=== PATIENT | male | born 1945 | race Caucasian/White ===

== ENCOUNTER 2022-06-15 13:52 | Inpatient (IN) | payer MEDICARE, BC ==
[2022-06-15] MEDS ORDERED: methylPREDNISolone SOD SUCCI 125 MG/2 ML VIAL IV STA (14:05)
[2022-06-15] MEDS ORDERED: IPRATROPIUM-ALBUTEROL 3 ML NEB INHALATION STA (14:05)
[2022-06-15] MEDS ORDERED: PNEUMONIA PROTOCOL UTILIZED 1 EACH MISC PO PRN (14:51)
[2022-06-15] MEDS ORDERED: IPRATROPIUM-ALBUTEROL 3 ML NEB INHALATION PRN (14:51)
[2022-06-15] MEDS ORDERED: AZITHROMYCIN 500 MG in SODIUM CHLORIDE 0.9% 250 ML IVPB STA (14:51)
--- NOTE | 2022-06-15 14:51 | ED ---
General Adult HPI - General Chief complaint: Shortness of Breath Stated complaint: Cronic COPD, Sent Time Seen by Provider: 06/15/22 14:05 Source: patient, family, RN notes reviewed Mode of arrival: ambulatory Limitations: no limitations - History of Present Illness Initial comments: Patient is a pleasant 77-year-old male presenting to the emergency department with difficulty breathing. Symptoms have been ongoing for several months, worse the past couple weeks. Patient does have cough. Patient has occasional productive sputum the past week. No fevers. Dyspnea does worsen with exertion, even as little as 5-10 feet. Patient did see Dr. Cano prior to arrival who would like patient admitted and possibly need placement for rehab. No leg pain or leg swelling. No fever. - Related Data Allergies Allergy/AdvReac Type Severity Reaction Status Date / Time No Known Allergies Allergy Verified 06/15/22 14:40 Review of Systems ROS Statement: Those systems with pertinent positive or pertinent negative responses have been documented in the HPI. ROS Other: All systems not noted in ROS Statement are negative. Constitutional: Denies: fever Eyes: Denies: eye pain ENT: Denies: ear pain Respiratory: Reports: as per HPI, cough, dyspnea Cardiovascular: Denies: chest pain Endocrine: Reports: fatigue Gastrointestinal: Denies: abdominal pain Genitourinary: Denies: dysuria Musculoskeletal: Denies: back pain Skin: Denies: rash Neurological: Denies: weakness Past Medical History Past Medical History: Cancer, COPD, Hypertension Additional Past Medical History / Comment(s): non-hodgkins lymphoma, coronary arteriosclerosis, anemia History of Any Multi-Drug Resistant Organisms: C-DIFF Date of last positivie culture/infection: October 2021 MDRO Source:: stool Past Surgical History: Back Surgery, Coronary Bypass/CABG Additional Past Surgical History / Comment(s): AAA repair in 03/30 with stent placed, carotid endarterectomy, on flomax for not emptying bladder per patient Past Psychological History: No Psychological Hx Reported Smoking Status: Current every day smoker Past Alcohol Use History: None Reported Past Drug Use History: None Reported General Exam Limitations: no limitations General appearance: alert, in no apparent distress Head exam: Present: normocephalic Eye exam: Present: normal appearance Neck exam: Present: normal inspection Respiratory exam: Present: wheezes, decreased breath sounds Cardiovascular Exam: Present: regular rate, normal rhythm GI/Abdominal exam: Present: soft. Absent: tenderness Extremities exam: Present: normal inspection. Absent: pedal edema, calf tenderness Neurological exam: Present: alert Psychiatric exam: Present: normal affect, normal mood Skin exam: Present: normal color Course Vital Signs 06/15/22 14:32 Temperature 98.3 F Pulse Rate 98 Respiratory 22 Rate Blood Pressure 94/60 O2 Sat by Pulse 96 Oximetry Medical Decision Making - Medical Decision Making Patient and family are made aware of plan. Case was discussed with Dr. Tejeda, who will admit covering hospital call. Dr. Cano will be placed on consult. - Radiology Data Radiology results: image reviewed (Emergency reviewed from earlier today with right-sided infiltrate) Disposition Clinical Impression: Acute exacerbation of chronic obstructive pulmonary disease, Pneumonia Disposition: ADMITTED IP TO THIS HOSP Is patient prescribed a controlled substance at d/c from ED?: No Referrals: Nonstaff,Physician [Primary Care Provider] - 1-2 days Time of Disposition: 14:50
[2022-06-15] MEDS: IPRATROPIUM-ALBUTEROL 3 ML NEB INHALATION SCH ×2 (15:07→19:50)
[2022-06-15 15:40] LABS: Basophils % (A) 0 %; Eosinophils % (A) 0 %; HCT 34.6 % (39.0-53.0); HGB 11.7 gm/dL (13.0-17.5); Lymphocytes # (A) 1.2 k/uL (1.0-4.8); Lymphocytes % (A) 34 %; MCH 29.5 pg (25.0-35.0); MCHC 33.9 g/dL (31.0-37.0); MCV 87.1 fL (80.0-100.0); Mean Platelet Volume 9.8; Monocytes # (A) 0.3 k/uL (0-1.0); Monocytes % (A) 8 %; Neutrophils # (A) 1.9 k/uL (1.3-7.7); Neutrophils % (A) 55 %; RBC 3.97 m/uL (4.30-5.90); RDW 14.1 % (11.5-15.5); WBC 3.4 k/uL (3.8-10.6)
[2022-06-15 15:56] LABS: Partial Thromboplastin Time 24.8 sec (22.0-30.0); Prothrombin Time 10.8 sec (9.0-12.0)
[2022-06-15 16:01] LABS: Albumin 3.1 g/dL (3.5-5.0); Potassium 4.2 mmol/L (3.5-5.1); Total Bilirubin 0.6 mg/dL (0.2-1.3); Total Protein 5.4 g/dL (6.3-8.2)
[2022-06-15] MEDS: SODIUM CHLORIDE 0.9% 1,000 ML IV SCH (16:03)
[2022-06-15 16:38] LABS: Platelet Count 99 k/uL (150-450)
[2022-06-15 16:51] LABS: Glucose,Whole Blood 216 mg/dL (70-110)
[2022-06-15] MEDS ORDERED: ATORVASTATIN 40 MG TAB PO STA (16:56)
[2022-06-15] MEDS: PANTOPRAZOLE 40 MG TABLET PO SCH (16:57)
[2022-06-15] MEDS: HEPARIN SODIUM,PORCINE/PF 5,000 UNIT/0.5 ML SYRINGE SQ SCH (16:57)
[2022-06-15] MEDS: INSULIN ASPART (NovoLOG) 100 UNIT/ML VIAL SQ SCH (16:57)
--- NOTE | 2022-06-15 17:31 | P.HPIM ---
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 Cano. Patient has a known history of COPD, non-Hodgkin's lymphoma, hyperlipidemia, hypertension, CABG 3, aortic dissection with repair, carotid artery stenosis status post carotid endarterectomy, and tobacco dependent. Over the past week patient has had increased shortness of breath and productive cough. Patient also admits to fevers and chills. Patient also admits to sinus congestion and ear pressure bilaterally. Patient denies chest pain. Nothing seems to make it better or worse. Due to patient's symptoms patient was advised to seek medical attention treatment of the hospital. Chest x-ray is pending. IV antibiotics initiated in the ER. IV steroids initiated in the ER as well. Review of Systems A 14 point review systems was assessed patient was only positive for those assessment HPI Past Medical History Past Medical History: Cancer, COPD, Hypertension Additional Past Medical History / Comment(s): non-hodgkins lymphoma, coronary arteriosclerosis, anemia History of Any Multi-Drug Resistant Organisms: C-DIFF Date of last positivie culture/infection: October 2021 MDRO Source:: stool Past Surgical History: Back Surgery, Coronary Bypass/CABG Additional Past Surgical History / Comment(s): AAA repair in 03/30 with stent placed, carotid endarterectomy, on flomax for not emptying bladder per patient Past Psychological History: No Psychological Hx Reported Smoking Status: Current every day smoker Past Alcohol Use History: None Reported Past Drug Use History: None Reported Medications and Allergies Allergies Allergy/AdvReac Type Severity Reaction Status Date / Time No Known Allergies Allergy Verified 06/15/22 14:40 Physical Exam Osteopathic Statement: *. No significant issues noted on an osteopathic structural exam other than those noted in the History and Physical/Consult. Vitals: Vital Signs Temp Pulse Resp BP Pulse Ox 06/15/22 15:45 20 06/15/22 15:19 72 06/15/22 15:08 68 06/15/22 14:32 98.3 F 98 22 94/60 96 Intake and Output 06/15/22 06/15/22 06/15/22 06:59 14:59 22:59 Other: Weight 56.699 kg General: [non toxic], [no distress], [appears at stated age] Derm: [warm], [dry] Head: [atraumatic], [normocephalic], [symmetric] Eyes: [EOMI], [no lid lag], [anicteric sclera] Mouth: [no lip lesion], [mucus membranes moist] Cardiovascular: [S1S2 reg], [no murmur], [positive posterior tibial pulse bilateral], Lungs: [Bilateral rhonchi] , [no accessory muscle use] Abdominal: [soft], [ nontender to palpation], [no guarding], [no appreciable organomegaly] Ext: [no gross muscle atrophy], [no edema], [no contractures] Neuro: [ CN II-XI grossly intact], [no focal neuro deficits] Psych: [Alert], [oriented], [appropriate affect] Results CBC & Chem 7: 06/15/22 15:32 06/15/22 15:32 Labs: Abnormal Lab Results - Last 24 Hours (Table) 06/15/22 06/15/22 06/15/22 Range/Units 15:32 15:32 16:49 WBC 3.4 L (3.8-10.6) k/uL RBC 3.97 L (4.30-5.90) m/uL Hgb 11.7 L (13.0-17.5) gm/dL Hct 34.6 L (39.0-53.0) % Plt Count 99 L (150-450) k/uL Sodium 129 L (137-145) mmol/L Chloride 93 L (98-107) mmol/L BUN 43 H (9-20) mg/dL Creatinine 1.75 H (0.66-1.25) mg/dL Glucose 206 H (74-99) mg/dL POC Glucose (mg/dL) 216 H (70-110) mg/dL Total Protein 5.4 L (6.3-8.2) g/dL Albumin 3.1 L (3.5-5.0) g/dL Thrombosis Risk Factor Assmnt - DVT/VTE Prophylaxis DVT/VTE Prophylaxis: Pharmacologic Prophylaxis ordered Assessment and Plan Assessment: 1. Acute exacerbation of COPD due to community acquired pneumonia Continue azithromycin and Rocephin Continue IV Solu-Medrol every 6 [address] Cano Vitals every 4 hours Duo nebs Sputum culture oxygen 2. BRITT likely due to episode of hypoperfusion from recent episode of hypotension Slow IV hydration Trend BUN/creatinine Check US of kidneys 3. Hyponatremia Check urine studies slow iv hydration 4. hyperglycemia likely due to steroids check hba1c insulin sliding scale 5. pancytopenia likely related to hx of chemotherapy for non Hodgkin lymphoma check iron studies trend cbc 6. Chronic conditions: COPD, non-Hodgkin's lymphoma, hyperlipidemia, hypertension, CABG 3, aortic dissection with repair, carotid artery stenosis status post carotid endarterectomy, and tobacco dependent, GERD -resume aspirin and statin -hold antihypertensives lisinopril and metoprolol due to borderline low blood pressure reading -vitals q4 -tele -tobacco cessation counseled patient does not want a nicotine patch at this time 7. GI DVT prophylaxis 8. A.m. labs Greater than 45 minutes spent coordinating care counseling and documenting Disposition: Home with home care versus rehab Anticipated length of stay greater than 2 midnight Patient is a full code PCP is Dr. Castellon
--- NOTE | 2022-06-15 18:37 | US ---
EXAMINATION TYPE: US kidneys/renal and bladder DATE OF EXAM: 06/15/2022 COMPARISON: NONE CLINICAL HISTORY: bre. EXAM MEASUREMENTS: Right Kidney: 10.4 x 5.0 x 5.3 cm Left Kidney: 10.6 x 5.2 x 4.8 cm Right Kidney: No hydronephrosis or masses seen Left Kidney: 4.9 x 4.7 x 4.4cm cyst medial mid pole Bladder: wnl Bilateral Jets seen: yes IMPRESSION: Left renal cortical cyst. No evidence of solid renal mass or obstruction.
[2022-06-15] MEDS: methylPREDNISolone SOD SUCCI 125 MG/2 ML VIAL IV SCH (19:09)
[2022-06-15] MEDS: ASPIRIN 81 MG PO SCH (22:40)
[2022-06-15 23:41] LABS: % Iron Saturation 6.44 (15.00-50.00)
[2022-06-15 23:54] LABS: Glucose,Whole Blood 223 mg/dL (70-110)
[2022-06-16] MEDS: methylPREDNISolone SOD SUCCI 125 MG/2 ML VIAL IV SCH ×5 (00:40→23:58)
[2022-06-16] MEDS: HEPARIN SODIUM,PORCINE/PF 5,000 UNIT/0.5 ML SYRINGE SQ SCH ×4 (00:41→23:58)
[2022-06-16] MEDS: SODIUM CHLORIDE 0.9% 1,000 ML IV SCH ×3 (02:07→23:27)
[2022-06-16 06:17] LABS: Glucose,Whole Blood 181 mg/dL (70-110)
--- NOTE | 2022-06-16 07:12 | XR ---
EXAMINATION TYPE: XR chest 2V DATE OF EXAM: 06/16/2022 COMPARISON: 06/15/2022 HISTORY: Pneumonia TECHNIQUE: Frontal and lateral views of the chest are obtained. FINDINGS: There is hyperinflation lungs and flattening the diaphragms consistent with COPD. There is a focal partially consolidative opacity in the right lower lung zone which has increased in the interval. Similar small increase in the infiltrate in the left lung base. The heart size is normal pulmonary vasculature is not congested. There is evidence for prior CABG chidi juan. The osseous structures are intact. IMPRESSION: 1. COPD. 2. Increasing airspace opacities bilaterally, right greater than left. Findings consistent with a pn eumonic process which has worsened in the interval.
[2022-06-16 08:24] LABS: Glucose,Whole Blood 161 mg/dL (70-110)
[2022-06-16] MEDS: IPRATROPIUM-ALBUTEROL 3 ML NEB INHALATION SCH ×4 (08:51→19:49)
[2022-06-16] MEDS: INSULIN ASPART (NovoLOG) 100 UNIT/ML VIAL SQ SCH ×3 (09:17→17:51)
[2022-06-16] MEDS: AZITHROMYCIN 500 MG TAB PO SCH (09:17)
[2022-06-16] MEDS: ASPIRIN 81 MG PO SCH (09:17)
[2022-06-16] MEDS: PANTOPRAZOLE 40 MG TABLET PO SCH (09:17)
--- NOTE | 2022-06-16 11:49 | P.CNPUL ---
History of Present Illness Consult date: 06/16/22 Requesting physician: Keith Echeverria Reason for consult: dyspnea, COPD, pneumonia, abnormal CXR/CT Chief complaint: Shortness of breath, cough, congestion History of present illness: This is a pleasant 77-year-old male patient who has a history of previous duodenal ulcer with GI bleed, abdominal aortic aneurysm with previous endovascular stent grafting, carotid atherosclerosis with previous right carotid endarterectomy, non-Hodgkin's lymphoma, receiving Rituxan infusions, hypertension, coronary artery disease. He also has advanced chronic obstructive pulmonary disease and follows with Dr. Cano in our office for the same. His FEV1 value is 39% of predicted. He had been maintained on Wixela, Spiriva and albuterol. He was seen in the office yesterday after recently being admitted to [facility] for advanced COPD exacerbation. He was treated with steroids and antibiotics and subsequently disc discharge. He was not doing much better. Chest x-ray shows worsening right lung pneumonia and he was referred here for the same. He is seen today in consultation on the regular medical floor. He is currently resting fairly comfortably in bed. Awake and alert. He has a loose nonproductive cough. No fever chills. Initiated and DuoNeb inhalations, Pulmicort and performs inhalations, IV Solu-Medrol. Antibiotics in the form of ceftriaxone and azithromycin. Heparin for DVT prophylaxis. Protonix for GI prophylaxis. Chest x-ray reveals evidence of COPD. There is increasing airspace opacities bilaterally right greater than left. Sputum culture pending. White count 3.4. Hemoglobin 11.7. Platelets 99,000. Sodium 129. Potassium 4.2. BUN 43. Creatinine 1.75. Glucose 206. AST 39. ALT 28. ProBNP 1960. Pro calcitonin 0.50. Mcnamara virus by PCR not detected. Influenza screen negative. Review of Systems REVIEW OF SYSTEMS: CONSTITUTIONAL: Denies any recent significant weight loss or weight gain. EYES: Denies change in vision. EARS, NOSE, MOUTH, THROAT: Denies headaches, denies sore throat. CARDIOVASCULAR: Denies chest pain, palpitations or syncopal episodes. RESPIRATORY: Positive for shortness of breath, cough, congestion no hemoptysis. GASTROINTESTINAL: Denies change in appetite, denies abdominal pain GENITOURINARY: Denies hematuria, denies infections. MUSKULOSKELETAL: Denies pain, denies swelling. INTEGUMENTARY: Denies rash, denies eczema. NEUROLOGICAL: Denies recent memory loss, no recent seizure activity. PSYCHIATRIC: Denies anxiety, denies depression. HEMATOLOGIC/LYMPHATIC: Denies anemia, denies enlarged lymph nodes. Past Medical History Past Medical History: Cancer, COPD, Hypertension Additional Past Medical History / Comment(s): non-hodgkins lymphoma, coronary arteriosclerosis, anemia History of Any Multi-Drug Resistant Organisms: C-DIFF Date of last positivie culture/infection: October 2021 MDRO Source:: stool Past Surgical History: Back Surgery, Coronary Bypass/CABG Additional Past Surgical History / Comment(s): AAA repair in 03/30 with stent placed, carotid endarterectomy, on flomax for not emptying bladder per patient Past Psychological History: No Psychological Hx Reported Smoking Status: Current every day smoker Past Alcohol Use History: None Reported Past Drug Use History: None Reported Medications and Allergies Home Medications Medication Instructions Recorded Confirmed Type Albuterol Inhaler [Ventolin Hfa 1 - 2 puff INHALATION RT-Q4H PRN 06/15/22 06/15/22 History Inhaler] Aspirin EC [Ecotrin Low Dose] 81 mg PO HS 06/15/22 06/15/22 History Fluticasone Nasal [place] [Flonase 1 spray EA NOSTRIL DAILY PRN 06/15/22 06/15/22 History Nasal [place]] Fluticasone Propion/Salmeterol 1 puff INHALATION RT-BID 06/15/22 06/15/22 Hist ory [Fluticasone-Salmeterol 100-50] Loratadine [Claritin] 10 mg PO DAILY PRN 06/15/22 06/15/22 History Metoprolol Succinate [Metoprolol 25 mg PO DAILY 06/15/22 06/15/22 History Succinate ER] Multivitamins, Thera [Multivitamin 1 tab PO DAILY 06/15/22 06/15/22 History (formulary)] Nitroglycerin Sl Tabs [Nitrostat] 0.4 mg SUBLINGUAL Q5M PRN 06/15/22 06/15/22 History [place]-3/Dha/Epa/Fish Oil [Fish Oil 1 cap PO HS 06/15/22 06/15/22 History 1,000 mg Softgel] Omeprazole [PriLOSEC] 20 mg PO DAILY PRN 06/15/22 06/15/22 History Pantoprazole [Protonix] 40 mg PO BID 06/15/22 06/15/22 History Simvastatin 80 mg PO HS 06/15/22 06/15/22 History Tamsulosin [Flomax] 0.4 mg PO HS 06/15/22 06/15/22 History Tiotropium 2.5 Mcg/Puff [Spiriva 2 puff INHALATION RT-HS 06/15/22 06/15/22 History Respimat 2.5 Mcg] lisinopriL [Zestril] 10 mg PO DAILY 06/15/22 06/15/22 History predniSONE 10 mg PO DAILY 06/15/22 06/15/22 History Allergies Allergy/AdvReac Type Severity Reaction Status Date / Time No Known Allergies Allergy Verified 06/15/22 20:24 Physical Exam Vitals: Vital Signs Temp Pulse Pulse Resp BP BP Pulse Ox 06/16/22 09:02 88 16 06/16/22 08:52 86 18 92 L 06/16/22 08:00 97.5 F L 31 L 16 119/67 98 06/15/22 23:17 97.6 F 89 16 113/61 96 06/15/22 22:01 97.6 F 16 113/61 96 06/15/22 21:02 98.6 F 90 15 104/54 93 L 06/15/22 20:03 72 06/15/22 19:51 70 06/15/22 15:45 20 06/15/22 15:19 72 06/15/22 15:08 68 06/15/22 14:32 98.3 F 98 22 94/60 96 Intake and Output 06/15/22 06/16/22 06/16/22 22:59 06:59 14:59 Other: # Voids 3 Weight 56.699 kg GENERAL EXAM: Alert, pleasant 77-year-old male patient, resting comfortably in bed, on 3 L nasal cannula, comfortable in no apparent distress. HEAD: Normocephalic. EYES: Normal reaction of pupils, equal size. NOSE: Clear with pink turbinates. THROAT: No erythema or exudates. NECK: No masses, no JVD. CHEST: No chest wall deformity. LUNGS: Equal air entry with bilateral scattered rhonchi. Diminished. CVS: S1 and S2 normal with no audible murmur, regular rhythm. ABDOMEN: No hepatosplenomegaly, normal bowel sounds, no guarding or rigidity. SPINE: No scoliosis or deformity SKIN: No rashes CENTRAL NERVOUS SYSTEM: No focal deficits, tone is normal in all 4 extremities. EXTREMITIES: There is no peripheral edema. No clubbing, no cyanosis. Peripheral pulses are intact. Results - Laboratory Findings CBC and BMP: 06/15/22 15:32 06/15/22 15:32 PT/INR, D-dimer PT 10.8 sec (9.0-12.0) 06/15/22 15:32 INR 1.0 (<1.2) 06/15/22 15:32 Abnormal lab findings: Abnormal Labs 06/15/22 06/15/22 06/15/22 15:32 15:32 15:32 WBC 3.4 L RBC 3.97 L Hgb 11.7 L Hct 34.6 L Plt Count 99 L Sodium 129 L Chloride 93 L BUN 43 H Creatinine 1.75 H Glucose 206 H POC Glucose (mg/dL) Hemoglobin A1c 6.6 H Iron TIBC % Saturation Transferrin Total Protein 5.4 L Albumin 3.1 L Procalcitonin 06/15/22 06/15/22 06/15/22 16:49 18:30 18:30 WBC RBC Hgb Hct Plt Count Sodium Chloride BUN Creatinine Glucose POC Glucose (mg/dL) 216 H Hemoglobin A1c Iron 13 L TIBC 200 L % Saturation 6.44 L Transferrin 143.0 L Total Protein Albumin Procalcitonin 0.50 H 06/15/22 06/15/22 06/16/22 18:30 23:52 06:15 WBC RBC Hgb Hct Plt Count Sodium Chloride BUN Creatinine Glucose POC Glucose (mg/dL) 223 H 181 H Hemoglobin A1c Iron 14 L TIBC % Saturation Transferrin Total Protein Albumin Procalcitonin 06/16/22 08:22 WBC RBC Hgb Hct Plt Count Sodium Chloride BUN Creatinine Glucose POC Glucose (mg/dL) 161 H Hemoglobin A1c Iron TIBC % Saturation Transferrin Total Protein Albumin Procalcitonin - Diagnostic Findings Chest x-ray: image reviewed Assessment and Plan Assessment: Acute on chronic hypoxemic respiratory failure secondary to bilateral pneumonia him a community-acquired versus healthcare acquired Acute exacerbation of chronic obstructive pulmonary disease secondary to above Recent admission to [facility] for similar symptoms, a computed tomography scan of the chest showed no acute abnormalities other than advanced COPD Chronic dyspnea, class III secondary to COPD. FEV1 value 39% of predicted Chronic and ongoing tobacco dependence of greater than 50 years Coronary disease Hypertension Hyperlipidemia Non-Hodgkin's lymphoma, inactive in stable and had been receiving Rituxan i nfusions Carotid atherosclerosis with previous right carotid endarterectomy Abdominal aortic aneurysm with previous endovascular stent grafting History of duodenal ulcer with hemorrhage Plan: The patient was seen and evaluated Chest x-ray, labs and medications reviewed Continue ceftriaxone and azithromycin Continue bronchodilators, IV Solu-Medrol Sputum culture pending Educated regarding the importance of complete smoking cessation NicoDerm patch will be offered Titrate the FiO2 as tolerated May require bronchoscopy with BAL if no significant improvement May require subacute rehabilitation due to frequent readmissions We will continue to follow and make further recommendations based on his clinical status I have personally seen and examined the patient, performed the documentation and the assessment and plan as written. Number of minutes spent on the visit: 20.
[2022-06-16 11:59] LABS: ALT 25 U/L (10-49); AST 30 U/L (14-35); Albumin/Globulin Ratio 1.65 (1.60-3.17); Alkaline Phosphatase 52 U/L (41-126); BUN/Creat Ratio 26.79 Ratio (12.00-20.00); Blood Urea Nitrogen 35.9 mg/dL (9.0-27.0); Calcium 8.8 mg/dL (8.7-10.3); Carbon Dioxide 25.2 mmol/L (20.0-27.5); Chloride 101 mmol/L (96-109); Chol/HDL Ratio 3.85 Ratio; Globulin 1.8 g/dL (1.6-3.3); Glucose 166 mg/dL (70-110); LDL Cholesterol,Calculated 109.1 mg/dL (0.0-131.0); Potassium 4.3 mmol/L (3.5-5.5); Sodium 137 mmol/L (135-145); Total Bilirubin <0.15 mg/dL (0.30-1.20); Total Protein 4.9 g/dL (6.2-8.2); VLDL Calculation 19.68 mg/dL (5.00-40.00)
[2022-06-16 12:56] LABS: Glucose,Whole Blood 242 mg/dL (70-110)
[2022-06-16 13:05] LABS: Basophils # (M) 0 X 10*3/uL (0.00-0.10); Eosinophils # (M) 0 X 10*3/uL (0.04-0.35); HCT 31.8 % (39.6-50.0); HGB 10.5 g/dL (13.0-17.0); Lymphocytes # (M) 0.16 X 10*3/uL (0.90-5.00); MCH 29.3 pg (27.0-32.0); MCV 88.8 fL (80.0-97.0); Mean Platelet Volume 11.5 fL (9.5-12.2); Monocytes # (M) 0.03 X 10*3/uL (0.20-1.00); NRBC Per 100 WBC 0 /100 WBCS (0.0-0.0); Neutrophils # (M) 2.92 X 10*3/uL (2.00-8.90); Neutrophils % (M) 94 %; Platelet Count 95 X 10*3/uL (140-440); RBC 3.58 X 10*6/uL (4.40-5.60); RBC Morphology NORMAL; RDW 14.6 % (11.5-14.5); WBC 3.11 X 10*3/uL (4.50-10.00)
--- NOTE | 2022-06-16 13:10 | P.PN ---
Subjective Progress Note Date: 06/16/22 The patient was seen at bedside, no acute events overnight. He states that his symptoms are better. Objective - Vital Signs Vital signs: Vital Signs Temp 97.5 F L 06/16/22 08:00 Pulse 87 06/16/22 12:33 Resp 16 06/16/22 09:02 BP 119/67 06/16/22 08:00 Pulse Ox 92 L 06/16/22 08:52 FiO2 Intake & Output 06/15/22 06/16/22 06/16/22 18:59 06:59 18:59 Weight 56.699 kg 56.699 kg Other: # Voids 3 - Exam General: [non toxic], [no distress], [appears at stated age] Derm: [warm], [dry] Head: [atraumatic], [normocephalic], [symmetric] Eyes: [EOMI], [no lid lag], [anicteric sclera] Mouth: [no lip lesion], [mucus membranes moist] Cardiovascular: [S1S2 reg], [no murmur], [positive posterior tibial pulse bilateral], Lungs: [Bilateral rhonchi] , [no accessory muscle use] Abdominal: [soft], [ nontender to palpation], [no guarding], [no appreciable organomegaly] Ext: [no gross muscle atrophy], [no edema], [no contractures] Neuro: [ CN II-XI grossly intact], [no focal neuro deficits] Psych: [Alert], [oriented], [appropriate affect] - Labs CBC & Chem 7: 06/16/22 06:54 06/16/22 06:54 Labs: Abnormal Lab Results - Last 24 Hours (Table) 06/15/22 06/15/22 06/15/22 Range/Units 15:32 15:32 15:32 WBC 3.4 L (3.8-10.6) k/uL RBC 3.97 L (4.30-5.90) m/uL Hgb 11.7 L (13.0-17.5) gm/dL Hct 34.6 L (39.0-53.0) % RDW (11.5-14.5) % Plt Count 99 L (150-450) k/uL Plt Count Comment Lymphocytes # (Manual) (0.90-5.00) X 10*3/uL Monocytes # (Manual) (0.20-1.00) X 10*3/uL Eosinophils # (Manual) (0.04-0.35) X 10*3/uL Sodium 129 L (137-145) mmol/L Chloride 93 L (98-107) mmol/L BUN 43 H (9-20) mg/dL Creatinine 1.75 H (0.66-1.25) mg/dL Est GFR (CKD-EPI)AfAm (60.0-200.0) Est GFR (CKD-EPI)NonAf (60.0-200.0) BUN/Creatinine Ratio (12.00-20.00) Ratio Glucose 206 H (74-99) mg/dL POC Glucose (mg/dL) (70-110) mg/dL Hemoglobin A1c 6.6 H (0.0-6.0) % Iron (65-175) ug/dL TIBC (228-460) ug/dL % Saturation (15.00-50.00) Transferrin (204.0-354.0) mg/dL Total Bilirubin (0.30-1.20) mg/dL Total Protein 5.4 L (6.3-8.2) g/dL Albumin 3.1 L (3.5-5.0) g/dL Procalcitonin (0.02-0.09) ng/mL Ur Random Sodium (40-220) mmol/L Ur Random Uric Acid (37.0-92.0) mg/dL 06/15/22 06/15/22 06/15/22 Range/Units 16:49 18:30 18:30 WBC (3.8-10.6) k/uL RBC (4.30-5.90) m/uL Hgb (13.0-17.5) gm/dL Hct (39.0-53.0) % RDW (11.5-14.5) % Plt Count (150-450) k/uL Plt Count Comment Lymphocytes # (Manual) (0.90-5.00) X 10*3/uL Monocytes # (Manual) (0.20-1.00) X 10*3/uL Eosinophils # (Manual) (0.04-0.35) X 10*3/uL Sodium (137-145) mmol/L Chloride (98-107) mmol/L BUN (9-20) mg/dL Creatinine (0.66-1.25) mg/dL Est GFR (CKD-EPI)AfAm (60.0-200.0) Est GFR (CKD-EPI)NonAf (60.0-200.0) BUN/Creatinine Ratio (12.00-20.00) Ratio Glucose (74-99) mg/dL POC Glucose (mg/dL) 216 H (70-110) mg/dL Hemoglobin A1c (0.0-6.0) % Iron 13 L (65-175) ug/dL TIBC 200 L (228-460) ug/dL % Saturation 6.44 L (15.00-50.00) Transferrin 143.0 L (204.0-354.0) mg/dL Total Bilirubin (0.30-1.20) mg/dL Total Protein (6.3-8.2) g/dL Albumin (3.5-5.0) g/dL Procalcitonin 0.50 H (0.02-0.09) ng/mL Ur Random Sodium (40-220) mmol/L Ur Random Uric Acid (37.0-92.0) mg/dL 06/15/22 06/15/22 06/16/22 Range/Units 18:30 23:52 06:00 WBC (3.8-10.6) k/uL RBC (4.30-5.90) m/uL Hgb (13.0-17.5) gm/dL Hct (39.0-53.0) % RDW (11.5-14.5) % Plt Count (150-450) k/uL Plt Count Comment Lymphocytes # (Manual) (0.90-5.00) X 10*3/uL Monocytes # (Manual) (0.20-1.00) X 10*3/uL Eosinophils # (Manual) (0.04-0.35) X 10*3/uL Sodium (137-145) mmol/L Chloride (98-107) mmol/L BUN (9-20) mg/dL Creatinine (0.66-1.25) mg/dL Est GFR (CKD-EPI)AfAm (60.0-200.0) Est GFR (CKD-EPI)NonAf (60.0-200.0) BUN/Creatinine Ratio (12.00-20.00) Ratio Glucose (74-99) mg/dL POC Glucose (mg/dL) 223 H (70-110) mg/dL Hemoglobin A1c (0.0-6.0) % Iron 14 L (65-175) ug/dL TIBC (228-460) ug/dL % Saturation (15.00-50.00) Transferrin (204.0-354.0) mg/dL Total Bilirubin (0.30-1.20) mg/dL Total Protein (6.3-8.2) g/dL Albumin (3.5-5.0) g/dL Procalcitonin (0.02-0.09) ng/mL Ur Random Sodium (40-220) mmol/L Ur Random Uric Acid 35.9 L (37.0-92.0) mg/dL 06/16/22 06/16/22 06/16/22 Range/Units 06:00 06:15 06:54 WBC 3.11 L (3.8-10.6) k/uL RBC 3.58 L (4.30-5.90) m/uL Hgb 10.5 L (13.0-17.5) gm/dL Hct 31.8 L (39.0-53.0) % RDW 14.6 H (11.5-14.5) % Plt Count 95 L (150-450) k/uL Plt Count Comment DECREASED A Lymphocytes # (Manual) 0.16 L (0.90-5.00) X 10*3/uL Monocytes # (Manual) 0.03 L (0.20-1.00) X 10*3/uL Eosinophils # (Manual) 0 L (0.04-0.35) X 10*3/uL Sodium (137-145) mmol/L Chloride (98-107) mmol/L BUN (9-20) mg/dL Creatinine (0.66-1.25) mg/dL Est GFR (CKD-EPI)AfAm (60.0-200.0) Est GFR (CKD-EPI)NonAf (60.0-200.0) BUN/Creatinine Ratio (12.00-20.00) Ratio Glucose (74-99) mg/dL POC Glucose (mg/dL) 181 H (70-110) mg/dL Hemoglobin A1c (0.0-6.0) % Iron (65-175) ug/dL TIBC (228-460) ug/dL % Saturation (15.00-50.00) Transferrin (204.0-354.0) mg/dL Total Bilirubin (0.30-1.20) mg/dL Total Protein (6.3-8.2) g/dL Albumin (3.5-5.0) g/dL Procalcitonin (0.02-0.09) ng/mL Ur Random Sodium 31 L (40-220) mmol/L Ur Random Uric Acid (37.0-92.0) mg/dL 06/16/22 06/16/22 06/16/22 Range/Units 06:54 08: 12:54 WBC (3.8-10.6) k/uL RBC (4.30-5.90) m/uL Hgb (13.0-17.5) gm/dL Hct (39.0-53.0) % RDW (11.5-14.5) % Plt Count (150-450) k/uL Plt Count Comment Lymphocytes # (Manual) (0.90-5.00) X 10*3/uL Monocytes # (Manual) (0.20-1.00) X 10*3/uL Eosinophils # (Manual) (0.04-0.35) X 10*3/uL Sodium (137-145) mmol/L Chloride (98-107) mmol/L BUN 35.9 H (9-20) mg/dL Creatinine (0.66-1.25) mg/dL Est GFR (CKD-EPI)AfAm 58.0 L (60.0-200.0) Est GFR (CKD-EPI)NonAf 50.0 L (60.0-200.0) BUN/Creatinine Ratio 26.79 H (12.00-20.00) Ratio Glucose 166 H (74-99) mg/dL POC Glucose (mg/dL) 161 H 242 H (70-110) mg/dL Hemoglobin A1c (0.0-6.0) % Iron (65-175) ug/dL TIBC (228-460) ug/dL % Saturation (15.00-50.00) Transferrin (204.0-354.0) mg/dL Total Bilirubin <0.15 L (0.30-1.20) mg/dL Total Protein 4.9 L (6.3-8.2) g/dL Albumin 3.0 L (3.5-5.0) g/dL Procalcitonin (0.02-0.09) ng/mL Ur Random Sodium (40-220) mmol/L Ur Random Uric Acid (37.0-92.0) mg/dL Microbiology - Last 24 Hours (Table) 06/15/22 20:04 Gram Stain - Preliminary Sputum Sputum Culture - Preliminary Assessment and Plan Assessment: 1. Acute exacerbation of COPD due to community acquired pneumonia Continue azithromycin and Rocephin Continue IV Solu-Medrol every 6 hours Consult plastics process hand Dr. Cano, consulted appreciate recommendations Vitals every 4 hours Duo nebs Sputum culture oxygen 2. BRITT likely due to episode of hypoperfusion from recent episode of hypotension Slow IV hydration Trend BUN/creatinine Check US of kidneys 3. Hyponatremia Check urine studies slow iv hydration 4. hyperglycemia likely due to steroids check hba1c insulin sliding scale 5. pancytopenia likely related to hx of chemotherapy for non Hodgkin lymphoma check iron studies trend cbc 6. Chronic conditions: COPD, non-Hodgkin's lymphoma, hyperlipidemia, hypertension, CABG 3, aortic dissection with repair, carotid artery stenosis status post carotid endarterectomy, and tobacco dependent, GERD -resume aspirin and statin -hold antihypertensives lisinopril and metoprolol due to borderline low blood pressure reading -vitals q4 -tele -tobacco cessation counseled patient does not want a nicotine patch at this time 7. GI DVT prophylaxis 8. A.m. labs Greater than 45 minutes spent coordinating care counseling and documenting Disposition: Home with home care versus rehab Anticipated length of stay greater than 2 midnight Patient is a full code PCP is Dr. Castellon
[2022-06-16 13:36] VITALS: BMI 20.1
[2022-06-16 17:39] LABS: Glucose,Whole Blood 97 mg/dL (70-110)
[2022-06-16] MEDS: BUDESONIDE 1 MG/2 ML NEBU INHALATION SCH (19:49)
[2022-06-16] MEDS: FORMOTEROL FUMARATE 20 MCG/2 ML NEBU INHALATION SCH (19:49)
[2022-06-16 23:27] LABS: Glucose,Whole Blood 164 mg/dL (70-110)
[2022-06-17] MEDS: methylPREDNISolone SOD SUCCI 125 MG/2 ML VIAL IV SCH ×3 (05:29→18:08)
[2022-06-17 05:34] LABS: Glucose,Whole Blood 156 mg/dL (70-110)
[2022-06-17 07:07] LABS: Glucose,Whole Blood 145 mg/dL (70-110)
[2022-06-17] MEDS: INSULIN ASPART (NovoLOG) 100 UNIT/ML VIAL SQ SCH ×3 (07:18→17:28)
[2022-06-17] MEDS: PANTOPRAZOLE 40 MG TABLET PO SCH (08:07)
[2022-06-17] MEDS: ASPIRIN 81 MG PO SCH (08:08)
[2022-06-17] MEDS: AZITHROMYCIN 500 MG TAB PO SCH (08:08)
[2022-06-17] MEDS: SODIUM CHLORIDE 0.9% 1,000 ML IV SCH ×2 (08:09→17:29)
[2022-06-17] MEDS: IPRATROPIUM-ALBUTEROL 3 ML NEB INHALATION SCH ×4 (08:17→19:26)
[2022-06-17] MEDS: FORMOTEROL FUMARATE 20 MCG/2 ML NEBU INHALATION SCH ×2 (08:18→19:26)
[2022-06-17] MEDS: BUDESONIDE 1 MG/2 ML NEBU INHALATION SCH ×2 (08:18→19:26)
[2022-06-17] MEDS: HEPARIN SODIUM,PORCINE/PF 5,000 UNIT/0.5 ML SYRINGE SQ SCH ×3 (08:25→23:43)
[2022-06-17 11:28] LABS: HCT 30.5 % (39.6-50.0); HGB 10.3 g/dL (13.0-17.0); MCH 29.4 pg (27.0-32.0); MCHC 33.8 g/dL (32.0-37.0); MCV 87.1 fL (80.0-97.0); Mean Platelet Volume 11.8 fL (9.5-12.2); NRBC Per 100 WBC 0 /100 WBCS (0.0-0.0); Platelet Count 111 X 10*3/uL (140-440); RDW 14.7 % (11.5-14.5)
[2022-06-17 11:33] LABS: African American GFR (CKD) 73.6 (60.0-200.0); Anion Gap 9.3 mmol/L (10.00-18.00); BUN/Creat Ratio 25.36 Ratio (12.00-20.00); Blood Urea Nitrogen 27.9 mg/dL (9.0-27.0); Calcium 8.5 mg/dL (8.7-10.3); Carbon Dioxide 24.7 mmol/L (20.0-27.5); Magnesium 1.2 mg/dL (1.5-2.4); Non-African American GFR(CKD) 63.5 (60.0-200.0); Phosphorus 3.4 mg/dL (2.4-5.1); Potassium 4.1 mmol/L (3.5-5.5)
[2022-06-17 11:48] LABS: Glucose,Whole Blood 176 mg/dL (70-110)
[2022-06-17 12:09] LABS: Basophils # (M) 0 X 10*3/uL (0.00-0.10); Eosinophils # (M) 0 X 10*3/uL (0.04-0.35); Lymphocytes # (M) 0.05 X 10*3/uL (0.90-5.00); Monocytes # (M) 0.09 X 10*3/uL (0.20-1.00); Neutrophils # (M) 4.56 X 10*3/uL (2.00-8.90); Neutrophils % (M) 97 %; RBC Morphology NORMAL
[2022-06-17] MEDS: LACTOBACILLUS ACIDOPH & BULGAR 1 EACH PACKET PO SCH ×2 (12:19→21:59)
--- NOTE | 2022-06-17 12:56 | P.GSCN ---
History of Present Illness Consult date: 06/17/22 Reason for Consult: Dysphagia History of present illness: This 77-year-old male with history of dysphagia. Patient states she's lost processing 25 pounds over the last 6-8 months. He has a copy of medical and surgical history. Patient undergone 2 previous surgeries in the last 4 months. He had a partial gastrectomy for ulcer disease and repair of aortic aneurysm. Patient states he feels food sticking in his mouth. Past Medical History Past Medical History: Cancer, COPD, Hypertension Additional Past Medical History / Comment(s): non-hodgkins lymphoma, coronary arteriosclerosis, anemia History of Any Multi-Drug Resistant Organisms: C-DIFF Year Discovered:: October 2021 MDRO Source:: stool Past Surgical History: Back Surgery, Coronary Bypass/CABG Additional Past Surgical History / Comment(s): AAA repair in 03/30 with stent placed, carotid endarterectomy, on flomax for not emptying bladder per patient Past Psychological History: No Psychological Hx Reported Smoking Status: Current every day smoker Past Alcohol Use History: None Reported Past Drug Use History: None Reported Medications and Allergies Home Medications Medication Instructions Recorded Confirmed Type Albuterol Inhaler [Ventolin Hfa 1 - 2 puff INHALATION RT-Q4H PRN 06/15/22 06/15/22 History Inhaler] Aspirin EC [Ecotrin Low Dose] 81 mg PO HS 06/15/22 06/15/22 History Fluticasone Nasal [place] [Flonase 1 spray EA NOSTRIL DAILY PRN 06/15/22 06/15/22 History Nasal [place]] Fluticasone Propion/Salmeterol 1 puff INHALATION RT-BID 06/15/22 06/15/22 History [Fluticasone-Salmeterol 100-50] Loratadine [Claritin] 10 mg PO DAILY PRN 06/15/22 06/15/22 History Metoprolol Succinate [Metoprolol 25 mg PO DAILY 06/15/22 06/15/22 History Succinate ER] Multivitamins, Thera [Multivitamin 1 tab PO DAILY 06/15/22 06/15/22 History (formulary)] Nitroglycerin Sl Tabs [Nitrostat] 0.4 mg SUBLINGUAL Q5M PRN 06/15/22 06/15/22 History [place]-3/Dha/Epa/Fish Oil [Fish Oil 1 cap PO HS 06/15/22 06/15/22 History 1,000 mg Softgel] Omeprazole [PriLOSEC] 20 mg PO DAILY PRN 06/15/22 06/15/22 History Pantoprazole [Protonix] 40 mg PO BID 06/15/22 06/15/22 History Simvastatin 80 mg PO HS 06/15/22 06/15/22 History Tamsulosin [Flomax] 0.4 mg PO HS 06/15/22 06/15/22 History Tiotropium 2.5 Mcg/Puff [Spiriva 2 puff INHALATION RT-HS 06/15/22 06/15/22 History Respimat 2.5 Mcg] lisinopriL [Zestril] 10 mg PO DAILY 06/15/22 06/15/22 History predniSONE 10 mg PO DAILY 06/15/22 06/15/22 History Allergies Allergy/AdvReac Type Severity Reaction Status Date / Time No Known Allergies Allergy Verified 06/15/22 20:24 Surgical - Exam Vital Signs Temp Pulse Resp BP Pulse Ox 98.3 F 98 22 94/60 96 06/15/22 14:32 06/15/22 14:32 06/15/22 14:32 06/15/22 14:32 06/15/22 14:32 - General well developed, well nourished, no distress, chronically ill - Eyes PERRL - ENT normal pinna - Neck no masses - Respiratory normal expansion - Cardiovascular Rhythm: regular - Abdomen Abdomen: soft, non tender Results - Labs 06/17/22 07:11 06/17/22 07:11 Abnormal Lab Results - Last 24 Hours (Table) 06/16/22 06/16/22 06/16/22 Range/Units 06:54 12:54 23:24 WBC 3.11 L (4.50-10.00) X 10*3/uL RBC 3.58 L (4.40-5.60) X 10*6/uL Hgb 10.5 L (13.0-17.0) g/dL Hct 31.8 L (39.6-50.0) % RDW 14.6 H (11.5-14.5) % Plt Count 95 L (140-440) X 10*3/uL Plt Count Comment DECREASED A Lymphocytes # (Manual) 0.16 L (0.90-5.00) X 10*3/uL Monocytes # (Manual) 0.03 L (0.20-1.00) X 10*3/uL Eosinophils # (Manual) 0 L (0.04-0.35) X 10*3/uL Anion Gap (10.00-18.00) mmol/L BUN (9.0-27.0) mg/dL BUN/Creatinine Ratio (12.00-20.00) Ratio Glucose (70-110) mg/dL POC Glucose (mg/dL) 242 H 164 H (70-110) mg/dL Calcium (8.7-10.3) mg/dL Magnesium (1.5-2.4) mg/dL 06/17/22 06/17/22 06/17/22 Range/Units 05:28 07:06 07:11 WBC (4.50-10.00) X 10*3/uL RBC 3.50 L (4.40-5.60) X 10*6/uL Hgb 10.3 L (13.0-17.0) g/dL Hct 30.5 L (39.6-50.0) % RDW 14.7 H (11.5-14.5) % Plt Count 111 L (140-440) X 10*3/uL Plt Count Comment DECREASED A Lymphocytes # (Manual) 0.05 L (0.90-5.00) X 10*3/uL Monocytes # (Manual) 0.09 L (0.20-1.00) X 10*3/uL Eosinophils # (Manual) 0 L (0.04-0.35) X 10*3/uL Anion Gap (10.00-18.00) mmol/L BUN (9.0-27.0) mg/dL BUN/Creatinine Ratio (12.00-20.00) Ratio Glucose (70-110) mg/dL POC Glucose (mg/dL) 156 H 145 H (70-110) mg/dL Calcium (8.7-10.3) mg/dL Magnesium (1.5-2.4) mg/dL 06/17/22 06/17/22 Range/Units 07:11 11:46 WBC (4.50-10.00) X 10*3/uL RBC (4.40-5.60) X 10*6/uL Hgb (13.0-17.0) g/dL Hct (39.6-50.0) % RDW (11.5-14.5) % Plt Count (140-440) X 10*3/uL Plt Count Comment Lymphocytes # (Manual) (0.90-5.00) X 10*3/uL Monocytes # (Manual) (0.20-1.00) X 10*3/uL Eosinophils # (Manual) (0.04-0.35) X 10*3/uL Anion Gap 9.30 L (10.00-18.00) mmol/L BUN 27.9 H (9.0-27.0) mg/dL BUN/Creatinine Ratio 25.36 H (12.00-20.00) Ratio Glucose 150 H (70-110) mg/dL POC Glucose (mg/dL) 176 H (70-110) mg/dL Calcium 8.5 L (8.7-10.3) mg/dL Magnesium 1.2 L (1.5-2.4) mg/dL Microbiology - Last 24 Hours (Table) 06/15/22 15:10 Blood Culture - Preliminary Blood No Growth after 24 hours 06/15/22 15:25 Blood Culture - Preliminary Blood No Growth after 24 hours 06/15/22 20:04 Gram Stain - Preliminary Sputum Sputum Culture - Preliminary Diabetes panel 06/17/22 Range/Units 07:11 Sodium 139 (135-145) mmol/L Potassium 4.1 (3.5-5.5) mmol/L Chloride 105 (96-109) mmol/L Carbon Dioxide 24.7 (20.0-27.5) mmol/L BUN 27.9 H (9.0-27.0) mg/dL Creatinine 1.1 (0.6-1.5) mg/dL Glucose 150 H (70-110) mg/dL Calcium 8.5 L (8.7-10.3) mg/dL Calcium panel 06/17/22 Range/Units 07:11 Calcium 8.5 L (8.7-10.3) mg/dL Phosphorus 3.4 (2.4-5.1) mg/dL Pituitary panel 06/17/22 Range/Units 07:11 Sodium 139 (135-145) mmol/L Potassium 4.1 (3.5-5.5) mmol/L Chloride 105 (96-109) mmol/L Carbon Dioxide 24.7 (20.0-27.5) mmol/L BUN 27.9 H (9.0-27.0) mg/dL Creatinine 1.1 (0.6-1.5) mg/dL Glucose 150 H (70-110) mg/dL Calcium 8.5 L (8.7-10.3) mg/dL Adrenal panel 06/17/22 Range/Units 07:11 Sodium 139 (135-145) mmol/L Potassium 4.1 (3.5-5.5) mmol/L Chloride 105 (96-109) mmol/L Carbon Dioxide 24.7 (20.0-27.5) mmol/L BUN 27.9 H (9.0-27.0) mg/dL Creatinine 1.1 (0.6-1.5) mg/dL Glucose 150 H (70-110) mg/dL Calcium 8.5 L (8.7-10.3) mg/dL Assessment and Plan Assessment: History of dysphagia. Patient undergo EGD in the a.m.
--- NOTE | 2022-06-17 13:15 | P.PN ---
Subjective Progress Note Date: 06/17/22 The patient was seen at bedside, no acute events overnight. He states that his symptoms are better. He is complaining of acute on chronic dysphagia to both solid and liquid. Objective - Vital Signs Vital signs: Vital Signs Temp 98.3 F 06/17/22 08:00 Pulse 88 06/17/22 11:18 Resp 18 06/17/22 11:18 BP 143/75 06/17/22 08:00 Pulse Ox 96 06/17/22 08:20 FiO2 Intake & Output 06/16/22 06/17/22 06/17/22 18:59 06:59 18:59 Intake Total 1200 Balance 1200 Weight 56.699 kg Intake: Intake, IV Titration 1200 Amount Sodium Chloride 0.9% 1, 1200 000 ml @ 100 mls/hr IV . Q10H [facility] Rx#:[id number] Other: # Voids 2 - Exam General: [non toxic], [no distress], [appears at stated age] Derm: [warm], [dry] Head: [atraumatic], [normocephalic], [symmetric] Eyes: [EOMI], [no lid lag], [anicteric sclera] Mouth: [no lip lesion], [mucus membranes moist] Cardiovascular: [S1S2 reg], [no murmur], [positive posterior tibial pulse bilateral], Lungs: [Bilateral rhonchi] , [no accessory muscle use] Abdominal: [soft], [ nontender to palpation], [no guarding], [no appreciable organomegaly] Ext: [no gross muscle atrophy], [no edema], [no contractures] Neuro: [ CN II-XI grossly intact], [no focal neuro deficits] Psych: [Alert], [oriented], [appropriate affect] - Labs CBC & Chem 7: 06/17/22 07:11 06/17/22 07:11 Labs: Abnormal Lab Results - Last 24 Hours (Table) 06/16/22 06/17/22 06/17/22 Range/Units 23:24 05:28 07:06 RBC (4.40-5.60) X 10*6/uL Hgb (13.0-17.0) g/dL Hct (39.6-50.0) % RDW (11.5-14.5) % Plt Count (140-440) X 10*3/uL Plt Count Comment Lymphocytes # (Manual) (0.90-5.00) X 10*3/uL Monocytes # (Manual) (0.20-1.00) X 10*3/uL Eosinophils # (Manual) (0.04-0.35) X 10*3/uL Anion Gap (10.00-18.00) mmol/L BUN (9.0-27.0) mg/dL BUN/Creatinine Ratio (12.00-20.00) Ratio Glucose (70-110) mg/dL POC Glucose (mg/dL) 164 H 156 H 145 H (70-110) mg/dL Calcium (8.7-10.3) mg/dL Magnesium (1.5-2.4) mg/dL 06/17/22 06/17/22 06/17/22 Range/Units 07:11 07:11 11:46 RBC 3.50 L (4.40-5.60) X 10*6/uL Hgb 10.3 L (13.0-17.0) g/dL Hct 30.5 L (39.6-50.0) % RDW 14.7 H (11.5-14.5) % Plt Count 111 L (140-440) X 10*3/uL Plt Count Comment DECREASED A Lymphocytes # (Manual) 0.05 L (0.90-5.00) X 10*3/uL Monocytes # (Manual) 0.09 L (0.20-1.00) X 10*3/uL Eosinophils # (Manual) 0 L (0.04-0.35) X 10*3/uL Anion Gap 9.30 L (10.00-18.00) mmol/L BUN 27.9 H (9.0-27.0) mg/dL BUN/Creatinine Ratio 25.36 H (12.00-20.00) Ratio Glucose 150 H (70-110) mg/dL POC Glucose (mg/dL) 176 H (70-110) mg/dL Calcium 8.5 L (8.7-10.3) mg/dL Magnesium 1.2 L (1.5-2.4) mg/dL Microbiology - Last 24 Hours (Table) 06/15/22 15:10 Blood Culture - Preliminary Blood No Growth after 24 hours 06/15/22 15:25 Blood Culture - Preliminary Blood No Growth after 24 hours Assessment and Plan Assessment: Acute exacerbation of COPD due to community acquired pneumonia Continue azithromycin and Rocephin Continue IV Solu-Medrol every 6 hours Consult outsole handler Dr. Cano, consulted appreciate recommendations Vitals every 4 hours Duo nebs Sputum culture oxygen Acute on chronic dysphagia The patient states that he's choking with everything he is eating [employer] ax consultant appreciate recommendations Plans for EGD and a.m. BRITT likely due to episode of hypoperfusion from recent episode of hypotension Slow IV hydration Trend BUN/creatinine Check US of kidneys Hyponatremia Check urine studies slow iv hydration Hyperglycemia likely due to steroids check hba1c insulin sliding scale Pancytopenia likely related to hx of chemotherapy for non Hodgkin lymphoma check iron studies trend cbc Chronic conditions: COPD, non-Hodgkin's lymphoma, hyperlipidemia, hypertension, CABG 3, aortic dissection with repair, carotid artery stenosis status post carotid endarterectomy, and tobacco dependent, GERD -resume aspirin and statin -hold antihypertensives lisinopril and metoprolol due to borderline low blood pressure reading -vitals q4 -tele -tobacco cessation counseled patient does not want a nicotine patch at this time GI DVT prophylaxis A.m. labs Greater than 45 minutes spent coordinating care counseling and documenting Disposition: Home with home care versus rehab Anticipated length of stay greater than 2 midnight Patient is a full code PCP is Dr. Castellon
--- NOTE | 2022-06-17 14:18 | P.PN ---
Subjective Progress Note Date: 06/17/22 Principal diagnosis: COPD exacerbation. This is a pleasant 77-year-old male patient who has a history of previous duodenal ulcer with GI bleed, abdominal aortic aneurysm with previous endovascular stent grafting, carotid atherosclerosis with previous right carotid endarterectomy, non-Hodgkin's lymphoma, receiving Rituxan infusions, hypertension, coronary artery disease. He also has advanced chronic obstructive pulmonary disease and follows with Dr. Cano in our office for the same. His FEV1 value is 39% of predicted. He had been maintained on Wixela, Spiriva and albuterol. He was seen in the office yesterday after recently being admitted to [facility] for advanced COPD exacerbation. He was treated with steroids and antibiotics and subsequently disc discharge. He was not doing much better. Chest x-ray shows worsening right lung pneumonia and he was referred here for the same. He is seen today in consultation on the regular medical floor. He is currently resting fairly comfortably in bed. Awake and alert. He has a loose nonproductive cough. No fever chills. Initiated and DuoNeb inhalations, Pulmicort and performs inhalations, IV Solu-Medrol. Antibiotics in the form of ceftriaxone and azithromycin. Heparin for DVT prophylaxis. Protonix for GI prophylaxis. Chest x-ray reveals evidence of COPD. There is increasing airspace opacities bilaterally right greater than left. Sputum culture pending. White count 3.4. Hemoglobin 11.7. Platelets 99,000. Sodium 129. Potassium 4.2. BUN 43. Creatinine 1.75. Glucose 206. AST 39. ALT 28. ProBNP 1960. Pro calcitonin 0.50. Mcnamara virus by PCR not detected. Influenza screen negative. Progress note dated 06/17/2022. 77-year-old male seen in consultation yesterday for COPD exacerbation. The patient follows with my partner in the office. She has severe COPD, with an FEV1 that's 39% of predicted. Unfortunately, the patient does continue to smoke, and we counseled him about the importance of smoking cessation. He was admitted with a diagnosis of COPD exacerbation, and possible pneumonia. Currently, the patient is feeling only a bit better. He continues on oxygen therapy. He is receiving appropriate medications including antibiotics, bronchodilators, and corticosteroids. Testing for coronavirus was negative. Labs today include a white count of 4.7, we will attempt 0.3, hematocrit 30.5, and a platelet count of 111,000. Sodium 139, potassium 4.1, chlorides 105, CO2 25, BUN 28, and creatinine 1.1. Magnesium 1.2. Calcium 8.5. Blood and sputum sampling is currently negative. The patient continues on Rocephin. In addition, the patient's on albuterol sulfate and ipratropium bromide, budesonide, formoterol, and Solu-Medrol. Objective - Vital Signs Vital signs: Vital Signs Temp 98.3 F 06/17/22 08:00 Pulse 88 06/17/22 11:18 Resp 18 06/17/22 11:18 BP 143/75 06/17/22 08:00 Pulse Ox 96 06/17/22 08:20 FiO2 Intake & Output 06/16/22 06/17/22 06/17/22 18:59 06:59 18:59 Intake Total 1200 Balance 1200 Weight 56.699 kg Intake: Intake, IV Titration 1200 Amount Sodium Chloride 0.9% 1, 1200 000 ml @ 100 mls/hr IV . Q10H [facility] Rx#:[id number] Other: # Voids 2 - Exam No acute distress, oriented 3. Currently on 3 L of oxygen. No conversational dyspnea or use of accessory muscles. HEENT examination is grossly unremarkable. Neck supple. Full range of motion. No adenopathy thyromegaly or neck vein distention. Cardiovascular examination reveals regular rhythm rate. S1-S2 normal. No S3 or S4. No discernible murmur noted. Heart sounds are distant. Heart rate 88 bpm. Lungs reveal coarse expiratory rhonchi and expiratory wheezes. Breath sounds are equal. No crackles. Slight prolongation on forced maneuver. Adventitious lung sounds are more prominent on forced maneuver. Saturations are 96% Abdomen soft bowel sounds are heard. No masses or tenderness. Extremities are intact. No cyanosis clubbing or edema. Skin is without rash or lesion. Neurologic examination is brief but nonfocal. - Labs CBC & Chem 7: 06/17/22 07:11 06/17/22 07:11 Labs: Abnormal Lab Results - Last 24 Hours (Table) 06/16/22 06/17/22 06/17/22 Range/Units 23:24 05:28 07:06 RBC (4.40-5.60) X 10*6/uL Hgb (13.0-17.0) g/dL Hct (39.6-50.0) % RDW (11.5-14.5) % Plt Count (140-440) X 10*3/uL Plt Count Comment Lymphocytes # (Manual) (0.90-5.00) X 10*3/uL Monocytes # (Manual) (0.20-1.00) X 10*3/uL Eosinophils # (Manual) (0.04-0.35) X 10*3/uL Anion Gap (10.00-18.00) mmol/L BUN (9.0-27.0) mg/dL BUN/Creatinine Ratio (12.00-20.00) Ratio Glucose (70-110) mg/dL POC Glucose (mg/dL) 164 H 156 H 145 H (70-110) mg/dL Calcium (8.7-10.3) mg/dL Magnesium (1.5-2.4) mg/dL 06/17/22 06/17/22 06/17/22 Range/Units 07:11 07:11 11:46 RBC 3.50 L (4.40-5.60) X 10*6/uL Hgb 10.3 L (13.0-17.0) g/dL Hct 30.5 L (39.6-50.0) % RDW 14.7 H (11.5-14.5) % Plt Count 111 L (140-440) X 10*3/uL Plt Count Comment DECREASED A Lymphocytes # (Manual) 0.05 L (0.90-5.00) X 10*3/uL Monocytes # (Manual) 0.09 L (0.20-1.00) X 10*3/uL Eosinophils # (Manual) 0 L (0.04-0.35) X 10*3/uL Anion Gap 9.30 L (10.00-18.00) mmol/L BUN 27.9 H (9.0-27.0) mg/dL BUN/Creatinine Ratio 25.36 H (12.00-20.00) Ratio Glucose 150 H (70-110) mg/dL POC Glucose (mg/dL) 176 H (70-110) mg/dL Calcium 8.5 L (8.7-10.3) mg/dL Magnesium 1.2 L (1.5-2.4) mg/dL Microbiology - Last 24 Hours (Table) 06/15/22 20:04 Gram Stain - Preliminary Sputum Sputum Culture - Preliminary 06/15/22 15:10 Blood Culture - Preliminary Blood No Growth after 24 hours 06/15/22 15:25 Blood Culture - Preliminary Blood No Growth after 24 hours Assessment and Plan Assessment: Acute on chronic hypoxemic respiratory failure secondary to bilateral pneumonia, community-acquired versus healthcare acquired. Acute exacerbation of chronic obstructive pulmonary disease. Recent admission to [facility] for similar symptoms, a computed tomography scan of the chest showed no acute abnormalities other than advanced COPD. Severe stage III COPD, with an FEV1 that is 39% of predicted. Chronic and ongoing tobacco dependence of greater than 50 years. Coronary disease. Hypertension. Hyperlipidemia. Non-Hodgkin's lymphoma, inactive. Carotid atherosclerosis with previous right carotid endarterectomy. Abdominal aortic aneurysm with previous endovascular stent grafting. History of duodenal ulcer with hemorrhage. Plan: Plan dated 06/17/2022. The patient is seen and evaluated. The patient's labs, x-rays, and medications are reviewed. The patient continues on appropriate medications, including bronchodilators, steroids, and antibiotics. The patient is starting to feel a bit better, but does have a long way to go. Unfortunately, the patient does continue to smoke. He is counseled about the importance of smoking cessation. The patient has severe/stage III COPD, with an FEV1 that is 39% of predicted. We will continue to follow and make recommendations along the way. Time with Patient: Less than 30
[2022-06-17] MEDS ORDERED: SALINE NASAL GEL 14.1 GM TUBE NASAL PRN (16:01)
[2022-06-17 16:48] LABS: Glucose,Whole Blood 234 mg/dL (70-110)
[2022-06-17 21:03] LABS: Glucose,Whole Blood 174 mg/dL (70-110)
[2022-06-18] MEDS: methylPREDNISolone SOD SUCCI 125 MG/2 ML VIAL IV SCH ×4 (00:16→17:50)
[2022-06-18] MEDS: SODIUM CHLORIDE 0.9% 1,000 ML IV SCH ×2 (05:41→16:47)
[2022-06-18 06:07] LABS: Glucose,Whole Blood 139 mg/dL (70-110)
[2022-06-18] MEDS: INSULIN ASPART (NovoLOG) 100 UNIT/ML VIAL SQ SCH ×3 (07:27→16:44)
[2022-06-18] MEDS: BUDESONIDE 1 MG/2 ML NEBU INHALATION SCH ×2 (07:45→20:43)
[2022-06-18] MEDS: IPRATROPIUM-ALBUTEROL 3 ML NEB INHALATION SCH ×4 (07:45→20:44)
[2022-06-18] MEDS: FORMOTEROL FUMARATE 20 MCG/2 ML NEBU INHALATION SCH ×2 (07:45→20:44)
[2022-06-18] MEDS: LACTOBACILLUS ACIDOPH & BULGAR 1 EACH PACKET PO SCH ×2 (08:16→22:10)
[2022-06-18] MEDS: HEPARIN SODIUM,PORCINE/PF 5,000 UNIT/0.5 ML SYRINGE SQ SCH ×2 (08:16→16:44)
[2022-06-18] MEDS: PANTOPRAZOLE 40 MG TABLET PO SCH ×2 (08:27→16:44)
[2022-06-18] MEDS: ASPIRIN 81 MG PO SCH (08:27)
[2022-06-18 08:57] LABS: HCT 33.2 % (39.6-50.0); MCHC 33.1 g/dL (32.0-37.0); MCV 90.5 fL (80.0-97.0); Mean Platelet Volume 11.8 fL (9.5-12.2); NRBC Per 100 WBC 0 /100 WBCS (0.0-0.0); Platelet Count 126 X 10*3/uL (140-440); RBC 3.67 X 10*6/uL (4.40-5.60); RDW 14.9 % (11.5-14.5); WBC 4.66 X 10*3/uL (4.50-10.00)
[2022-06-18 09:04] LABS: African American GFR (CKD) 93.8 (60.0-200.0); Anion Gap 7.2 mmol/L (10.00-18.00); BUN/Creat Ratio 27.33 Ratio (12.00-20.00); Blood Urea Nitrogen 24.6 mg/dL (9.0-27.0); Calcium 8.9 mg/dL (8.7-10.3); Carbon Dioxide 25.8 mmol/L (20.0-27.5); Magnesium 1.3 mg/dL (1.5-2.4); Non-African American GFR(CKD) 80.9 (60.0-200.0); Phosphorus 2.9 mg/dL (2.4-5.1); Potassium 4.3 mmol/L (3.5-5.5)
[2022-06-18 09:46] LABS: Basophils # (M) 0 X 10*3/uL (0.00-0.10); Eosinophils # (M) 0 X 10*3/uL (0.04-0.35); Lymphocytes # (M) 0.09 X 10*3/uL (0.90-5.00); Monocytes # (M) 0.09 X 10*3/uL (0.20-1.00); Neutrophils # (M) 4.47 X 10*3/uL (2.00-8.90); Neutrophils % (M) 96 %; RBC Morphology NORMAL
[2022-06-18] MEDS ORDERED: LORATADINE 10 MG TAB PO PRN (10:40)
[2022-06-18 11:42] LABS: Glucose,Whole Blood 173 mg/dL (70-110)
[2022-06-18] MEDS: MAGNESIUM SULFATE-D5W PMX 1 GM in DEXTROSE/WATER 1 100ML.BAG IVPB SCH ×4 (12:37→17:53)
[2022-06-18] MEDS: lisinopriL 10 MG TAB PO SCH (13:04)
[2022-06-18] MEDS: METOPROLOL SUCCINATE (ER) 25 MG TAB.ER.24H PO SCH (13:04)
[2022-06-18] MEDS: guaiFENesin 600 MG TABLET.ER PO SCH ×2 (13:04→22:12)
--- NOTE | 2022-06-18 13:15 | P.PN ---
Subjective Progress Note Date: 06/18/22 On today's evaluation of 06/18/2022, seeing the patient for a follow-up. The patient was advised for an acute exacerbation suspected right lung pneumonia. The level was slightly elevated at 0.5.: 19 testing was negative. Influenza screen was negative. The patient was started on antibiotics and the patient is currently on a combination of bronchodilators and steroids. No nausea. No vomiting. He is less congested for now. He was having some dysphagia and he was seen by general surgery. He lost around 25-30 pounds in weight and the patient is going to undergo an EGD today. He remains on bronchodilators. He remains on steroid. Cough is still present although it has somewhat subsided. The chest x-ray report done during this current admission on 06/16/2022 showed airspace opacity bilaterally right more than left consistent with pneumonia and the patient remains on a combination of antibiotics including IV Rocephin and Zithromax Objective - Vital Signs Vital signs: Vital Signs Temp 97.7 F 06/18/22 07:37 Pulse 82 06/18/22 11:12 Resp 18 06/18/22 07:37 BP 167/91 06/18/22 07:37 Pulse Ox 98 06/18/22 07:37 FiO2 Intake & Output 06/17/22 06/18/22 06/18/22 18:59 06:59 18:59 Intake Total 800 Output Total 400 Balance 800 -400 Intake: IV 800 0.9 NACL 800 Output: Urine 400 Other: Voiding Method Toilet Urinal # Voids 2 - Exam No acute distress, oriented 3. Currently on 3 L of oxygen. No conversational dyspnea or use of accessory muscles. HEENT examination is grossly unremarkable. Neck supple. Full range of motion. No adenopathy thyromegaly or neck vein distention. Cardiovascular examination reveals regular rhythm rate. S1-S2 normal. No S3 or S4. No discernible murmur noted. Heart sounds are distant. Heart rate 88 bpm. Lungs reveal coarse expiratory rhonchi and expiratory wheezes. Breath sounds are equal. No crackles. Slight prolongation on forced maneuver. Adventitious lung sounds are more prominent on forced maneuver. Saturations are 96% Abdomen soft bowel sounds are heard. No masses or tenderness. Extremities are intact. No cyanosis clubbing or edema. Skin is without rash or lesion. Neurologic examination is brief but nonfocal. - Labs CBC & Chem 7: 06/18/22 05:23 06/18/22 05:23 Labs: Abnormal Lab Results - Last 24 Hours (Table) 06/17/22 06/17/22 06/18/22 Range/Units 16:46 21:01 05:23 RBC 3.67 L (4.40-5.60) X 10*6/uL Hgb 11.0 L (13.0-17.0) g/dL Hct 33.2 L (39.6-50.0) % RDW 14.9 H (11.5-14.5) % Plt Count 126 L (140-440) X 10*3/uL Plt Count Comment A Lymphocytes # (Manual) 0.09 L (0.90-5.00) X 10*3/uL Monocytes # (Manual) 0.09 L (0.20-1.00) X 10*3/uL Eosinophils # (Manual) 0 L (0.04-0.35) X 10*3/uL Anion Gap (10.00-18.00) mmol/L BUN/Creatinine Ratio (12.00-20.00) Ratio Glucose (70-110) mg/dL POC Glucose (mg/dL) 234 H 174 H (70-110) mg/dL Magnesium (1.5-2.4) mg/dL 06/18/22 06/18/22 06/18/22 Range/Units 05:23 06:05 11:41 RBC (4.40-5.60) X 10*6/uL Hgb (13.0-17.0) g/dL Hct (39.6-50.0) % RDW (11.5-14.5) % Plt Count (140-440) X 10*3/uL Plt Count Comment Lymphocytes # (Manual) (0.90-5.00) X 10*3/uL Monocytes # (Manual) (0.20-1.00) X 10*3/uL Eosinophils # (Manual) (0.04-0.35) X 10*3/uL Anion Gap 7.20 L (10.00-18.00) mmol/L BUN/Creatinine Ratio 27.33 H (12.00-20.00) Ratio Glucose 151 H (70-110) mg/dL POC Glucose (mg/dL) 139 H 173 H (70-110) mg/dL Magnesium 1.3 L (1.5-2.4) mg/dL Microbiology - Last 24 Hours (Table) 06/15/22 20:04 Gram Stain - Final Sputum Sputum Culture - Final 06/15/22 15:10 Blood Culture - Preliminary Blood No Growth after 48 hours 06/15/22 15:25 Blood Culture - Preliminary Blood No Growth after 48 hours Assessment and Plan Plan: Acute on chronic hypoxemic respiratory failure secondary to bilateral pneumonia, community-acquired versus healthcare acquired. Acute exacerbation of chronic obstructive pulmonary disease. Recent admission to [facility] for similar symptoms, a computed tomography scan of the chest showed no acute abnormalities other than advanced COPD. Severe stage III COPD, with an FEV1 that is 39% of predicted. Chronic and ongoing tobacco dependence of greater than 50 years. Coronary disease. Hypertension. Hyperlipidemia. Non-Hodgkin's lymphoma, inactive. Carotid atherosclerosis with previous right carotid endarterectomy. Abdominal aortic aneurysm with previous endovascular stent grafting. History of duodenal ulcer with hemorrhage. Plan Patient had significant dysphagia and weight loss. The patient is going to undergo an EGD today. Continue same antibiotic coverage and repeat the chest x-ray in the morning Keep nothing by mouth after midnight and the patient will likely need a bronchoscopy and lavage with high concern of a hospital-acquired pneumonia the patient has had frequent and prolonged hospitalizations. Continue bronchodilators and steroids for now. We'll continue to follow. We'll keep him nothing by mouth after midnight for bronchoscopy tomorrow.
[2022-06-18] MEDS ORDERED: LIDOCAINE 2% INJ 20 MG/ML (2 ML VIAL) ONE (13:38)
[2022-06-18] MEDS ORDERED: PROPOFOL 10 MG/ML 20 ML VIAL IV ONE (13:38)
[2022-06-18] MEDS ORDERED: IV FLUID CONTINUATION 1,000 ML IV ONE ×2 (13:39)
--- NOTE | 2022-06-18 13:50 | P.OP ---
Date of Procedure: 06/18/22 Preoperative Diagnosis: Dysphagia Postoperative Diagnosis: Sliding hiatal hernia Esophagitis Procedure(s) Performed: EGD Anesthesia: MAC Surgeon: Khanh Henriquez Pathology: other (Esophagus) Condition: stable Disposition: PACU Description of Procedure: The patient's placed on the endoscopy table in the lateral position. He received IV sedation. The gastroscope placed oropharynx passed in the esophagus into the stomach. Scope was then placed through the pylorus. The first and second portion of the duodenum appeared normal. Scope summer back the antrum and this appeared normal. Scope was then retroflexed patient had a sliding hiatal hernia. The GE junction was at 38 cm the distal esophagus appeared inflamed. This was biopsied the proximal esophagus appeared normal. Scope withdrawn for patient.
[2022-06-18] MEDS: FLUTICASONE 50MCG/SPRAY NASAL 16GM EA NOSTRIL SCH (14:05)
[2022-06-18 16:23] LABS: Glucose,Whole Blood 200 mg/dL (70-110)
--- NOTE | 2022-06-18 18:10 | P.PN ---
Subjective Progress Note Date: 06/18/22 (delayed charting seen at 1030) Patient is a 77-year-old gentleman with end-stage COPD, non-Hodgkin's lymphoma in the past, and hypertension who presented to the [facility] after being seen by Dr. Cano in the office for shortness of breath and cough. The emergency department he underwent an extensive evaluation. Initial laboratory analysis showed white blood cell count of 3.4, hemoglobin 11.7, and platelets of 99, sodium 129, BUN 43, creatinine 1.75. Chest x-ray showed increased airspace opacities on the right greater than left consistent with pneumonia. He was admitted and was started on IV antibiotics and IV steroids. Pulmonology was consulted. He had a slow continuous improvement. He was complaining of significant dysphagia and surgery was consulted. He underwent EGD on 06/18 which showed esophagitis and a sliding hiatal hernia. Sputum culture came back with normal devyn. COVID-19, and influenza were negative. Patient seen and examined at bedside. He reports his dysphagia is better than yesterday, however he has only been taking in liquids. He states he is still short of breath especially when moving. He denies any significant wheezing. General: nontoxic, no distress, appears at stated age Derm: warm, dry Head: atraumatic, normocephalic, symmetric Eyes: EOMI, no lid lag, anicteric sclera Mouth: no lip lesion, mucus membranes moist Cardiovascular: S1S2 reg, no murmur, positive posterior tibial pulse bilateral, Lungs: Crackles bilaterally , no accessory muscle use Abdominal: soft, nontender to palpation, no guarding, no appreciable organ omegaly Ext: no gross muscle atrophy, no edema, no contractures Neuro: CN II-XI grossly intact, no focal neuro deficits Psych: Alert, oriented, appropriate affect Assessment/plan: Acute exacerbation of COPD, severe stage III Pneumonia, possible gram-negative Ongoing tobacco abuse -Pulmonary recommendations -Continue with IV steroids -Continue with Rocephin, has completed Zithromax -Sputum culture negative -Possible bronchoscopy in a.m. per pulmonary Diabetes mellitus type II, newly discovered -A1c 6.6 -Sliding scale insulin -Follow blood sugars -Dietitian consultation Iron deficiency anemia Thrombocytopenia Hypomagnesemia -Replace and recheck in a.m. Hyponatremia, resolved BRITT, resolved Chronic: Non-Hodgkin lymphoma, inactive and nontreatment Dyslipidemia Hypertension Coronary artery disease Aortic dissection status post repair line GERD DVT prophylaxis: Heparin Active Medications Generic Name Dose Route Start Last Admin Trade Name Freq PRN Reason Stop Dose Admin Albuterol/Ipratropium 3 ml 06/15/22 14:51 Ipratropium-Albuterol 3 Ml Neb INHALATION RT-Q4H PRN shortness of breath Albuterol/Ipratropium 3 ml 06/15/22 16:00 06/18/22 16:33 Ipratropium-Albuterol 3 Ml Neb INHALATION 3 ml RT-QID ROSALBA Administration Aspirin 81 mg 06/15/22 17:00 06/18/22 08:27 Aspirin 81 Mg PO 81 mg DAILY ROSALBA Administration Atorvastatin Calcium 40 mg 06/18/22 21:00 Atorvastatin 40 Mg Tab PO HS ROSALBA Budesonide 1 mg 06/16/22 20:00 06/18/22 07:45 Budesonide 1 Mg/2 Ml Nebu INHALATION 1 mg RT-BID ROSALBA Administration Fluticasone Propionate 2 spray 06/18/22 10:45 06/18/22 14:05 Fluticasone 50mcg/[place] Nasal 16gm EA NOSTRIL 2 spray DAILY ROSALBA Administration Formoterol Fumarate 20 mcg 06/16/22 20:00 06/18/22 07:45 Formoterol Fumarate 20 Mcg/2 Ml Nebu INHALATION 20 mcg RT-BID ROSALBA Administration Guaifenesin 600 mg 06/18/22 10:45 06/18/22 13:04 Guaifenesin 600 Mg Tablet.Er PO 600 mg Q12HR ROSALBA Administration Heparin Sodium (Porcine) 5,000 unit 06/15/22 16:15 06/18/22 16:44 Heparin Sodium,Porcine/Pf 5,000 Unit/0.5 Ml Syringe SQ 5,000 unit Q8HR ROSALBA Administration Sodium Chloride 1,000 mls @ 100 mls/hr 06/15/22 15:00 06/18/22 16:47 Saline 0.9% IV 100 mls/hr .Q10H ROSALBA Administration Ceftriaxone Sodium 2 gm/ 50 mls @ 100 mls/hr 06/16/22 09:00 06/18/22 08:27 Sodium Chloride IVPB 06/19/22 09:29 100 mls/hr Q24HR ROSALBA Administration Protocol Insulin Aspart 0 unit 06/15/22 17:30 06/18/22 16:44 Insulin Aspart (Novolog) 100 Unit/Ml Vial SQ 3 unit AC-TID ROSALBA Administration Protocol Lactobacillus Acidoph/Bulgaricus 1 each 06/17/22 09:00 06/18/22 08:16 Lactobacillus Acidoph & Bulgar 1 Each Packet PO Not Given BID ROSALBA Lisinopril 10 mg 06/18/22 11:30 06/18/22 13:04 Lisinopril 10 Mg Tab PO 10 mg DAILY ROSALBA Administration Loratadine 10 mg 06/18/22 10:40 Loratadine 10 Mg Tab PO DAILY PRN Allergy Symptoms Methylprednisolone Sodium Succinate 60 mg 06/15/22 18:00 06/18/22 17:50 Methylprednisolone Sod Succi 125 Mg/2 Ml Vial IV 60 mg Q6HR ROSALBA Administration Metoprolol Succinate 25 mg 06/18/22 11:00 06/18/22 13:04 Metoprolol Succinate (Er) 25 Mg Tab.Er.24h PO 25 mg DAILY ROSALBA Administration Miscellaneous Information 1 each 06/15/22 14:51 Pneumonia Protocol Utilized 1 Each Misc PO ONCE PRN Per Protocol Pantoprazole Sodium 40 mg 06/18/22 17:30 06/18/22 16:44 Pantoprazole 40 Mg Tablet PO 40 mg AC-BID ROSALBA Administration Sodium Chloride 1 applic 06/17/22 16:01 Saline Nasal Gel 14.1 Gm Tube NASAL Q4HR PRN Dry Nasal Passages Tamsulosin HCl 0.4 mg 06/18/22 21:00 Tamsulosin 0.4 Mg Cap.Er.24h PO HS ROSALBA Objective - Vital Signs Vital signs: Vital Signs Temp 97.7 F 06/18/22 15:20 Pulse 88 06/18/22 16:46 Resp 18 06/18/22 07:37 BP 147/73 06/18/22 16:19 Pulse Ox 100 06/18/22 16:19 FiO2 Intake & Output 06/17/22 06/18/22 06/18/22 18:59 06:59 18:59 Intake Total 800 100 Output Total 400 320 Balance 800 -400 -220 Intake: IV 800 100 0.9 NACL 800 Output: Urine 400 320 Other: Voiding Method Toilet Urinal # Voids 2 - Labs CBC & Chem 7: 06/18/22 05:23 06/18/22 05:23 Labs: Abnormal Lab Results - Last 24 Hours (Table) 06/17/22 06/18/22 06/18/22 Range/Units 21:01 05:23 05:23 RBC 3.67 L (4.40-5.60) X 10*6/uL Hgb 11.0 L (13.0-17.0) g/dL Hct 33.2 L (39.6-50.0) % RDW 14.9 H (11.5-14.5) % Plt Count 126 L (140-440) X 10*3/uL Plt Count Comment A Lymphocytes # (Manual) 0.09 L (0.90-5.00) X 10*3/uL Monocytes # (Manual) 0.09 L (0.20-1.00) X 10*3/uL Eosinophils # (Manual) 0 L (0.04-0.35) X 10*3/uL Anion Gap 7.20 L (10.00-18.00) mmol/L BUN/Creatinine Ratio 27.33 H (12.00-20.00) Ratio Glucose 151 H (70-110) mg/dL POC Glucose (mg/dL) 174 H (70-110) mg/dL Magnesium 1.3 L (1.5-2.4) mg/dL 06/18/22 06/18/22 06/18/22 Range/Units 06:05 11:41 16:21 RBC (4.40-5.60) X 10*6/uL Hgb (13.0-17.0) g/dL Hct (39.6-50.0) % RDW (11.5-14.5) % Plt Count (140-440) X 10*3/uL Plt Count Comment Lymphocytes # (Manual) (0.90-5.00) X 10*3/uL Monocytes # (Manual) (0.20-1.00) X 10*3/uL Eosinophils # (Manual) (0.04-0.35) X 10*3/uL Anion Gap (10.00-18.00) mmol/L BUN/Creatinine Ratio (12.00-20.00) Ratio Glucose (70-110) mg/dL POC Glucose (mg/dL) 139 H 173 H 200 H (70-110) mg/dL Magnesium (1.5-2.4) mg/dL Microbiology - Last 24 Hours (Table) 06/15/22 15:25 Blood Culture - Preliminary Blood No Growth after 72 hours 06/15/22 15:10 Blood Culture - Preliminary Blood No Growth after 72 hours 06/15/22 20:04 Gram Stain - Final Sputum Sputum Culture - Final
[2022-06-18 20:29] LABS: Glucose,Whole Blood 169 mg/dL (70-110)
[2022-06-18] MEDS: TAMSULOSIN 0.4 MG CAP.ER.24H PO SCH (22:09)
[2022-06-18] MEDS: ATORVASTATIN 40 MG TAB PO SCH (22:10)
[2022-06-19] MEDS: HEPARIN SODIUM,PORCINE/PF 5,000 UNIT/0.5 ML SYRINGE SQ SCH ×3 (00:56→17:22)
[2022-06-19] MEDS: methylPREDNISolone SOD SUCCI 125 MG/2 ML VIAL IV SCH ×4 (00:56→17:23)
[2022-06-19] MEDS: SODIUM CHLORIDE 0.9% 1,000 ML IV SCH ×2 (01:00→08:08)
[2022-06-19 05:47] LABS: Glucose,Whole Blood 127 mg/dL (70-110)
[2022-06-19 05:58] LABS: HCT 31.4 % (39.0-53.0); HGB 10.8 gm/dL (13.0-17.5); Hypochromasia Slight; MCH 30.9 pg (25.0-35.0); MCHC 34.2 g/dL (31.0-37.0); MCV 90.2 fL (80.0-100.0); Mean Platelet Volume 9.4; Platelet Count 106 k/uL (150-450); RBC 3.48 m/uL (4.30-5.90); RDW 14.1 % (11.5-15.5); WBC 3.6 k/uL (3.8-10.6)
[2022-06-19 06:09] LABS: African American GFR (CKD) >90 (>60 ml/min/1.73 sqM); Anion Gap 3 mmol/L; Blood Urea Nitrogen 20 mg/dL (9-20); Calcium 7.9 mg/dL (8.4-10.2); Carbon Dioxide 29 mmol/L (22-30); Chloride 105 mmol/L (98-107); Glucose 129 mg/dL (74-99); Magnesium 1.8 mg/dL (1.6-2.3); Non-African American GFR(CKD) 84 (>60 ml/min/1.73 sqM); Potassium 3.9 mmol/L (3.5-5.1); Sodium 137 mmol/L (137-145)
[2022-06-19 07:15] LABS: Glucose,Whole Blood 126 mg/dL (70-110)
[2022-06-19] MEDS: INSULIN ASPART (NovoLOG) 100 UNIT/ML VIAL SQ SCH ×3 (07:15→17:22)
[2022-06-19] MEDS: PANTOPRAZOLE 40 MG TABLET PO SCH ×2 (07:56→17:23)
[2022-06-19] MEDS: LACTOBACILLUS ACIDOPH & BULGAR 1 EACH PACKET PO SCH ×2 (07:57→22:06)
[2022-06-19] MEDS: ASPIRIN 81 MG PO SCH (07:59)
[2022-06-19] MEDS: guaiFENesin 600 MG TABLET.ER PO SCH ×2 (08:02→22:05)
[2022-06-19] MEDS: lisinopriL 10 MG TAB PO SCH (08:04)
[2022-06-19] MEDS: METOPROLOL SUCCINATE (ER) 25 MG TAB.ER.24H PO SCH (08:04)
[2022-06-19] MEDS: FLUTICASONE 50MCG/SPRAY NASAL 16GM EA NOSTRIL SCH (08:06)
[2022-06-19] MEDS: FORMOTEROL FUMARATE 20 MCG/2 ML NEBU INHALATION SCH ×2 (08:12→20:23)
[2022-06-19] MEDS: IPRATROPIUM-ALBUTEROL 3 ML NEB INHALATION SCH ×4 (08:12→20:23)
[2022-06-19] MEDS: BUDESONIDE 1 MG/2 ML NEBU INHALATION SCH ×2 (08:12→20:23)
--- NOTE | 2022-06-19 08:49 | XR ---
EXAMINATION TYPE: XR chest 2V DATE OF EXAM: 06/19/2022 COMPARISON: 06/16/2022 TECHNIQUE: PA and lateral views submitted. HISTORY: Shortness of breath FINDINGS: Postoperative changes with atherosclerotic change aorta. The shoulders. Hypertrophic degenerative changes spine. There is a metallic stent overlying the gastr ic region likely within the aorta. Hyperinflation suggests COPD and there are bilateral patchy infilt rates greater on right. A vague nodule. IMPRESSION: 1. COPD with patchy bilateral perihilar infiltrates greater on the right. Recommend follow-up to reso lution of vague nodularity right upper lobe.
[2022-06-19] MEDS ORDERED: FUROSEMIDE 10 MG/ML 4 ML VIAL IV STA (10:47)
[2022-06-19 11:42] LABS: Glucose,Whole Blood 139 mg/dL (70-110)
[2022-06-19] MEDS ORDERED: LACTATED RINGERS 1,000 ML IV ONE ×2 (13:15)
[2022-06-19] MEDS ORDERED: LIDOCAINE 2% INJ 20 MG/ML (2 ML VIAL) ONE (13:15)
[2022-06-19] MEDS ORDERED: PROPOFOL 10 MG/ML 20 ML VIAL IV ONE (13:15)
--- NOTE | 2022-06-19 13:23 | P.PN ---
Subjective Progress Note Date: 06/19/22 On today's evaluation of 06/18/2022, seeing the patient for a follow-up. The patient was advised for an acute exacerbation suspected right lung pneumonia. The level was slightly elevated at 0.5.COVID 19 testing was negative. Influenza screen was negative. The patient was started on antibiotics and the patient is currently on a combination of bronchodilators and steroids. No nausea. No vomiting. He is less congested for now. He was having some dysphagia and he was seen by general surgery. He lost around 25-30 pounds in weight and the patient is going to undergo an EGD today. He remains on bronchodilators. He remains on steroid. Cough is still present although it has somewhat subsided. The chest x-ray report done during this current admission on 06/16/2022 showed airspace opacity bilaterally right more than left consistent with pneumonia and the patient remains on a combination of antibiotics including IV Rocephin and Zithromax Today's evaluation of 06/19/2022, seeing the patient for a follow-up. The patient is here for an acute exacerbation of bilateral pneumonia. The patient underwent EGD showed a sliding hiatal hernia. This was done for evaluation of dysphagia. On today's evaluation, the plan is to proceed with bronchoscopy and bronchial lavage. Suspect mucus plugging. Noted the patient has COPD. He is current on examination bronchodilators and steroids and antibiotics. No fever. No chills. He is doing very slow progress and improvement. His performance of functional status is full. The patient is a white cell count today's of 3.6 with a hemoglobin of 10.8 and a platelet count of 106. The patient is having also normal electrolytes, BUN is 20 with a creatinine of 0.8. The sugars today is at 139. Objective - Vital Signs Vital signs: Vital Signs Temp 97.8 F 06/19/22 08:00 Pulse 88 06/19/22 11:13 Resp 20 06/19/22 11:13 BP 160/95 06/19/22 10:58 Pulse Ox 96 06/19/22 10:58 FiO2 Intake & Output 06/18/22 06/19/22 06/19/22 18:59 06:59 18:59 Intake Total 100 Output Total 320 900 Balance -220 -900 Intake: IV 100 Output: Urine 320 900 Other: Voiding Method Toilet Toilet Toilet Urinal Urinal Urinal - Exam No acute distress, oriented 3. Currently on 3 L of oxygen. No conversational dyspnea or use of accessory muscles. HEENT examination is grossly unremarkable. Neck supple. Full range of motion. No adenopathy thyromegaly or neck vein distention. Cardiovascular examination reveals regular rhythm rate. S1-S2 normal. No S3 or S4. No discernible murmur noted. Heart sounds are distant. Heart rate 88 bpm. Lungs reveal coarse expiratory rhonchi and expiratory wheezes. Breath sounds are equal. No crackles. Slight prolongation on forced maneuver. Adventitious lung sounds are more prominent on forced maneuver. Saturations are 96% Abdomen soft bowel sounds are heard. No masses or tenderness. Extremities are intact. No cyanosis clubbing or edema. Skin is without rash or lesion. Neurologic examination is brief but nonfocal. - Labs CBC & Chem 7: 06/19/22 05:47 06/19/22 05:47 Labs: Abnormal Lab Results - Last 24 Hours (Table) 06/18/22 06/18/22 06/19/22 Range/Units 16:21 20:27 05:46 WBC (3.8-10.6) k/uL RBC (4.30-5.90) m/uL Hgb (13.0-17.5) gm/dL Hct (39.0-53.0) % Plt Count (150-450) k/uL Glucose (74-99) mg/dL POC Glucose (mg/dL) 200 H 169 H 127 H (70-110) mg/dL Calcium (8.4-10.2) mg/dL 06/19/22 06/19/22 06/19/22 Range/Units 05:47 05:47 07:11 WBC 3.6 L (3.8-10.6) k/uL RBC 3.48 L (4.30-5.90) m/uL Hgb 10.8 L (13.0-17.5) gm/dL Hct 31.4 L (39.0-53.0) % Plt Count 106 L (150-450) k/uL Glucose 129 H (74-99) mg/dL POC Glucose (mg/dL) 126 H (70-110) mg/dL Calcium 7.9 L (8.4-10.2) mg/dL 06/19/22 Range/Units 11:38 WBC (3.8-10.6) k/uL RBC (4.30-5.90) m/uL Hgb (13.0-17.5) gm/dL Hct (39.0-53.0) % Plt Count (150-450) k/uL Glucose (74-99) mg/dL POC Glucose (mg/dL) 139 H (70-110) mg/dL Calcium (8.4-10.2) mg/dL Microbiology - Last 24 Hours (Table) 06/15/22 15:25 Blood Culture - Preliminary Blood No Growth after 72 hours 06/15/22 15:10 Blood Culture - Preliminary Blood No Growth after 72 hours 06/15/22 20:04 Gram Stain - Final Sputum Sputum Culture - Final Assessment and Plan Plan: Acute on chronic hypoxemic respiratory failure secondary to bilateral pneumonia, community-acquired versus healthcare acquired. Acute exacerbation of chronic obstructive pulmonary disease. Recent admission to [facility] for similar symptoms, a computed tomography scan of the chest showed no acute abnormalities other than advanced COPD. Severe stage III COPD, with an FEV1 that is 39% of predicted. Chronic and ongoing tobacco dependence of greater than 50 years. Coronary disease. Hypertension. Hyperlipidemia. Non-Hodgkin's lymphoma, inactive. Carotid atherosclerosis with previous right carotid endarterectomy. Abdominal aortic aneurysm with previous endovascular stent grafting. History of duodenal ulcer with hemorrhage. Plan we'll proceed with bronchoscopy and bronchoalveolar lavage Repeat chest x-ray from today is still showing patchy bilateral perihilar infiltrates right more than left along with resolution of a irregularity in the right upper lobe. Bronchoscopy will be done in the bronchial lavage will be febrile microbial cultures and further antibiotic adjustments will be done accordingly. Continue bronchodilators and steroids for now. We'll continue to follow.
[2022-06-19] MEDS ORDERED: LIDOCAINE 2% INJ 20 MG/ML INTRATRACH ONE (13:37)
--- NOTE | 2022-06-19 13:44 | P.PCN ---
Date of Procedure: 06/19/22 Preoperative Diagnosis: Bilateral pneumonia Postoperative Diagnosis: Bilateral pneumonia with copious amounts of mucous plugs occupying various segments of the lower lobes bilaterally. Procedure(s) Performed: Flexible bronchoscopy, and airway suctioning, bronchioloalveolar lavage of the left upper lobe. Anesthesia: MAC Surgeon: Neli Cano Spanish Instructor #1: Tayla Hoskins Pathology: other Condition: stable Disposition: floor Operative Findings: This is a flexible bronchoscopy was done in the endoscopy suite. The patient had bilateral pneumonia with copious amount of mucus plugging. The patient was given a full face mask for adequate oxygenation. The patient was sedated with propofol brought the procedure and they sedation was provided by TOUR PRODUCTION SUPERVISOR. Achieving adequate sedation, the flexible bronchoscope was introduced over the right nostril. Examination of the posterior pharynx, larynx, epiglottis and vocal cords was done. There was moderate amount of loose secretions occupying the upper airway. Therapeutic airway suctioning was done. Upper airway structures were essentially within normal limits. Epiglottis is sharp in the midline and the vocal cords were fully functional. The cords were slightly swollen and there was some minimal area of hemorrhagic/ecchymotic area involving the anterior aspect of the right vocal cord and this was probably related to coughing or trauma. A total of 2 mL of 1% lidocaine was applied to the vocal cord and following that the flexible bronchoscope was introduced into the upper trachea. Examination objective bronchial tree was done. 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 At the same time, there was copious amount of purulent respiratory secretions occupying the patient's airway, more so in the left upper lobe area and various segments of the left lower lobe and the right lower lobe. Therapeutic airway suctioning was done. The rest of her secretions were suctioned out without any major difficulties. The bronchoscope has to be removed on several occasions to flush and cleared to working chamber. Therapeutic airway suctioning was done of the length of the lavage of the left upper lobe was done with a total of 30 mL of fluid was aspirated and 80 mL was infused. At the completion of the procedure, the airways were patent. The visualized airways included the bilateral main stem bronchi, right upper lobectomy lobe right lower lobe left upper lobe left lower lobe bronchi along with daily various segments on the right. No complications. No desaturations. The patient tolerated the procedure without any major difficulties.
--- NOTE | 2022-06-19 15:14 | P.PN ---
Subjective Progress Note Date: 06/19/22 CHIEF COMPLAINT: Dysphagia HISTORY OF PRESENT ILLNESS: Patient is status post EGD showing a sliding hiatal hernia and esophagitis. Patient did tolerate liquid diet last night. He denies any difficulty swallowing the liquids. He is scheduled for bronchoscopy today with pulmonary service. Afebrile. WBC is 3.6 Hgb 10.8 platelets 106 sodium is 137 potassium 3.9 creatinine 0.8 to magnesium 1.8 Patient seen and examined with Dr. Henriquez PHYSICAL EXAM: VITAL SIGNS: Reviewed. GENERAL: Well-developed in no acute distress. HEENT: No sclera icterus. Extraocular movements grossly intact. Moist buccal mucosa. Head is atraumatic, normocephalic. ABDOMEN: Soft. Nondistended. Nontender. NEUROLOGIC: Alert and oriented. Cranial nerves II through XII grossly intact. ASSESSMENT: 1. Dysphagia 2. Sliding hiatal hernia and esophagitis noted on EGD PLAN: -Recommend continuing a full liquid diet -Continue to monitor -Continue supportive care -Continue PPI Physician Chief Solution Architect note has been reviewed by physician. Signing provider agrees with the documented findings, assessment, and plan of care. Objective - Vital Signs Vital signs: Vital Signs Temp 97.8 F 06/19/22 08:00 Pulse 88 06/19/22 15:07 Resp 20 06/19/22 15:07 BP 160/95 06/19/22 10:58 Pulse Ox 96 06/19/22 10:58 FiO2 Intake & Output 06/18/22 06/19/22 06/19/22 18:59 06:59 18:59 Intake Total 100 200 Output Total 320 900 Balance -220 -900 200 Intake: IV 100 200 Output: Urine 320 900 Other: Voiding Method Toilet Toilet Toilet Urinal Urinal Urinal - Labs CBC & Chem 7: 06/19/22 05:47 06/19/22 05:47 Labs: Abnormal Lab Results - Last 24 Hours (Table) 06/18/22 06/18/22 06/19/22 Range/Units 16:21 20:27 05:46 WBC (3.8-10.6) k/uL RBC (4.30-5.90) m/uL Hgb (13.0-17.5) gm/dL Hct (39.0-53.0) % Plt Count (150-450) k/uL Glucose (74-99) mg/dL POC Glucose (mg/dL) 200 H 169 H 127 H (70-110) mg/dL Calcium (8.4-10.2) mg/dL 06/19/22 06/19/22 06/19/22 Range/Units 05:47 05:47 07:11 WBC 3.6 L (3.8-10.6) k/uL RBC 3.48 L (4.30-5.90) m/uL Hgb 10.8 L (13.0-17.5) gm/dL Hct 31.4 L (39.0-53.0) % Plt Count 106 L (150-450) k/uL Glucose 129 H (74-99) mg/dL POC Glucose (mg/dL) 126 H (70-110) mg/dL Calcium 7.9 L (8.4-10.2) mg/dL 06/19/22 Range/Units 11:38 WBC (3.8-10.6) k/uL RBC (4.30-5.90) m/uL Hgb (13.0-17.5) gm/dL Hct (39.0-53.0) % Plt Count (150-450) k/uL Glucose (74-99) mg/dL POC Glucose (mg/dL) 139 H (70-110) mg/dL Calcium (8.4-10.2) mg/dL Microbiology - Last 24 Hours (Table) 06/15/22 15:25 Blood Culture - Preliminary Blood No Growth after 72 hours 06/15/22 15:10 Blood Culture - Preliminary Blood No Growth after 72 hours 06/15/22 20:04 Gram Stain - Final Sputum Sputum Culture - Final
[2022-06-19 17:01] LABS: Glucose,Whole Blood 204 mg/dL (70-110)
[2022-06-19 21:08] LABS: Glucose,Whole Blood 141 mg/dL (70-110)
--- NOTE | 2022-06-19 21:58 | P.PN ---
Subjective Progress Note Date: 06/19/22 (delayed charting seen at approx 1030) Patient is a 77-year-old gentleman with end-stage COPD, non-Hodgkin's lymphoma in the past, and hypertension who presented to the [facility] after being seen by Dr. Cano in the office for shortness of breath and cough. The emergency department he underwent an extensive evaluation. Initial laboratory analysis showed white blood cell count of 3.4, hemoglobin 11.7, and platelets of 99, sodium 129, BUN 43, creatinine 1.75. Chest x-ray showed increased airspace opacities on the right greater than left consistent with pneumonia. He was adm itted and was started on IV antibiotics and IV steroids. Pulmonology was consulted. He had a slow continuous improvement. He was complaining of significant dysphagia and surgery was consulted. He underwent EGD on 06/18 which showed esophagitis and a sliding hiatal hernia. Sputum culture came back with normal devyn. COVID-19, and influenza were negative. Patient seen and examined at bedside. Plan is for bronch today. Just finished dressing now with increased SOB, feeling faint, unable to speak, still with sinus fullness. General: nontoxic, no distress, appears at stated age Derm: warm, dry Head: atraumatic, normocephalic, symmetric Eyes: EOMI, no lid lag, anicteric sclera Mouth: no lip lesion, mucus membranes moist Cardiovascular: S1S2 reg, no murmur, positive posterior tibial pulse bilateral, Lungs: diffuse wheezing, pursed lip breathing, 2 word conversational dyspnea, + sternal retraction Abdominal: soft, nontender to palpation, no guarding, no appreciable organomegaly Ext: no gross muscle atrophy, no edema, no contractures Neuro: CN II-XI grossly intact, no focal neuro deficits Psych: Alert, oriented, appropriate affect Assessment/plan: Acute exacerbation of COPD, severe stage III Pneumonia, possible gram-negative Ongoing tobacco abuse -Pulmonary recommendations -Continue with IV steroids -Continue with Rocephin, has completed Zithromax -Sputum culture negative -Bronch today LE edema - stop IV fluids - Lasix X 1 Diabetes mellitus type II, newly discovered -A1c 6.6 -Sliding scale insulin -Follow blood sugars -Dietitian recs Iron deficiency anemia Thrombocytopenia - stable - follow CBC Hypomagnesemia, resolved Hyponatremia, resolved BRITT, resolved Chronic: Non-Hodgkin lymphoma, inactive and nontreatment Dyslipidemia Hypertension Coronary artery disease Aortic dissection status post repair line GERD DVT prophylaxis: Heparin Active Medications Generic Name Dose Route Start Last Admin Trade Name Freq PRN Reason Stop Dose Admin Albuterol/Ipratropium 3 ml 06/15/22 14:51 Ipratropium-Albuterol 3 Ml Neb INHALATION RT-Q4H PRN shortness of breath Albuterol/Ipratropium 3 ml 06/15/22 16:00 06/19/22 20:23 Ipratropium-Albuterol 3 Ml Neb INHALATION 3 ml RT-QID ROSALBA Administration Aspirin 81 mg 06/15/22 17:00 06/19/22 07:59 Aspirin 81 Mg PO Not Given DAILY [facility] Atorvastatin Calcium 40 mg 06/18/22 21:00 06/18/22 22:10 Atorvastatin 40 Mg Tab PO 40 mg HS ROSALBA Administration Budesonide 1 mg 06/16/22 20:00 06/19/22 20:23 Budesonide 1 Mg/2 Ml Nebu INHALATION 1 mg RT-BID ROSALBA Administration Fluticasone Propionate 2 spray 06/18/22 10:45 06/19/22 08:06 Fluticasone 50mcg/[place] Nasal 16gm EA NOSTRIL 2 spray DAILY ROSALBA Administration Formoterol Fumarate 20 mcg 06/16/22 20:00 06/19/22 20:23 Formoterol Fumarate 20 Mcg/2 Ml Nebu INHALATION 20 mcg RT-BID ROSALBA Administration Guaifenesin 600 mg 06/18/22 10:45 06/19/22 08:02 Guaifenesin 600 Mg Tablet.Er PO Not Given Q12HR [facility] Heparin Sodium (Porcine) 5,000 unit 06/15/22 16:15 06/19/22 17:22 Heparin Sodium,Porcine/Pf 5,000 Unit/0.5 Ml Syringe SQ 5,000 unit Q8HR ROSALBA Administration Insulin Aspart 0 unit 06/15/22 17:30 06/19/22 17:22 Insulin Aspart (Novolog) 100 Unit/Ml Vial SQ 3 unit AC-TID ROSALBA Administration Protocol Lactobacillus Acidoph/Bulgaricus 1 each 06/17/22 09:00 06/19/22 07:57 Lactobacillus Acidoph & Bulgar 1 Each Packet PO Not Given BID ROSALBA Lisinopril 10 mg 06/18/22 11:30 06/19/22 08:04 Lisinopril 10 Mg Tab PO 10 mg DAILY ROSALBA Administration Loratadine 10 mg 06/18/22 10:40 Loratadine 10 Mg Tab PO DAILY PRN Allergy Symptoms Methylprednisolone Sodium Succinate 60 mg 06/15/22 18:00 06/19/22 17:23 Methylprednisolone Sod Succi 125 Mg/2 Ml Vial IV 60 mg Q6HR ROSALBA Administration Metoprolol Succinate 25 mg 06/18/22 11:00 06/19/22 08:04 Metoprolol Succinate (Er) 25 Mg Tab.Er.24h PO 25 mg DAILY ROSALBA Administration Miscellaneous Information 1 each 06/15/22 14:51 Pneumonia Protocol Utilized 1 Each Misc PO ONCE PRN Per Protocol Pantoprazole Sodium 40 mg 06/18/22 17:30 06/19/22 17:23 Pantoprazole 40 Mg Tablet PO 40 mg AC-BID ROSALBA Administration Sodium Chloride 1 applic 06/17/22 16:01 Saline Nasal Gel 14.1 Gm Tube NASAL Q4HR PRN Dry Nasal Passages Tamsulosin HCl 0.4 mg 06/18/22 21:00 06/18/22 22:09 Tamsulosin 0.4 Mg Cap.Er.24h PO 0.4 mg HS ROSALBA Administration Objective - Vital Signs Vital signs: Vital Signs Temp 97.4 F L 06/19/22 19:56 Pulse 88 06/19/22 20:47 Resp 18 06/19/22 20:15 BP 175/80 06/19/22 19:56 Pulse Ox 98 06/19/22 19:56 FiO2 Intake & Output 06/19/22 06/19/22 06/20/22 06:59 18:59 06:59 Intake Total 400 Output Total 900 800 Balance -900 -400 Intake: IV 200 Oral 200 Output: Urine 900 800 Other: Voiding Method Toilet Toilet Toilet Urinal Urinal Urinal - Labs CBC & Chem 7: 06/19/22 05:47 06/19/22 05:47 Labs: Abnormal Lab Results - Last 24 Hours (Table) 06/19/22 06/19/22 06/19/22 Range/Units 05:46 05:47 05:47 WBC 3.6 L (3.8-10.6) k/uL RBC 3.48 L (4.30-5.90) m/uL Hgb 10.8 L (13.0-17.5) gm/dL Hct 31.4 L (39.0-53.0) % Plt Count 106 L (150-450) k/uL Glucose 129 H (74-99) mg/dL POC Glucose (mg/dL) 127 H (70-110) mg/dL Calcium 7.9 L (8.4-10.2) mg/dL 06/19/22 06/19/22 06/19/22 Range/Units 07:11 11:38 17:00 WBC (3.8-10.6) k/uL RBC (4.30-5.90) m/uL Hgb (13.0-17.5) gm/dL Hct (39.0-53.0) % Plt Count (150-450) k/uL Glucose (74-99) mg/dL POC Glucose (mg/dL) 126 H 139 H 204 H (70-110) mg/dL Calcium (8.4-10.2) mg/dL 06/19/22 Range/Units 21:07 WBC (3.8-10.6) k/uL RBC (4.30-5.90) m/uL Hgb (13.0-17.5) gm/dL Hct (39.0-53.0) % Plt Count (150-450) k/uL Glucose (74-99) mg/dL POC Glucose (mg/dL) 141 H (70-110) mg/dL Calcium (8.4-10.2) mg/dL Microbiology - Last 24 Hours (Table) 06/19/22 13:29 Acid Fast Bacilli Culture - Preliminary Bronchial Washings - Random 06/19/22 13:29 Bronchial Washings Culture - Preliminary Bronchial Washings - Random 06/19/22 13:29 Fungal Culture - Preliminary Bronchial Washings - Random 06/15/22 15:10 Blood Culture - Preliminary Blood No Growth after 96 hours 06/15/22 15:25 Blood Culture - Preliminary Blood No Growth after 96 hours
[2022-06-19] MEDS: TAMSULOSIN 0.4 MG CAP.ER.24H PO SCH (22:06)
[2022-06-19] MEDS: ATORVASTATIN 40 MG TAB PO SCH (22:06)
[2022-06-20] MEDS: methylPREDNISolone SOD SUCCI 125 MG/2 ML VIAL IV SCH ×4 (00:58→18:05)
[2022-06-20] MEDS: HEPARIN SODIUM,PORCINE/PF 5,000 UNIT/0.5 ML SYRINGE SQ SCH ×3 (00:58→15:37)
[2022-06-20] MEDS: IPRATROPIUM-ALBUTEROL 3 ML NEB INHALATION SCH ×4 (07:10→20:19)
[2022-06-20] MEDS: BUDESONIDE 1 MG/2 ML NEBU INHALATION SCH ×2 (07:11→20:19)
[2022-06-20] MEDS: FORMOTEROL FUMARATE 20 MCG/2 ML NEBU INHALATION SCH ×2 (07:11→20:19)
[2022-06-20 07:19] LABS: Glucose,Whole Blood 140 mg/dL (70-110)
[2022-06-20] MEDS: INSULIN ASPART (NovoLOG) 100 UNIT/ML VIAL SQ SCH ×3 (07:22→16:48)
[2022-06-20] MEDS: guaiFENesin 600 MG TABLET.ER PO SCH ×2 (07:30→21:05)
[2022-06-20] MEDS: PANTOPRAZOLE 40 MG TABLET PO SCH ×2 (07:30→18:04)
[2022-06-20] MEDS: ASPIRIN 81 MG PO SCH (07:30)
[2022-06-20] MEDS: METOPROLOL SUCCINATE (ER) 25 MG TAB.ER.24H PO SCH (07:30)
[2022-06-20] MEDS: lisinopriL 10 MG TAB PO SCH (07:30)
[2022-06-20] MEDS: FLUTICASONE 50MCG/SPRAY NASAL 16GM EA NOSTRIL SCH (07:30)
[2022-06-20] MEDS: LACTOBACILLUS ACIDOPH & BULGAR 1 EACH PACKET PO SCH ×2 (07:31→21:05)
[2022-06-20] MEDS ORDERED: FUROSEMIDE 10 MG/ML 2 ML VIAL IV ONE (10:33)
[2022-06-20] MEDS ORDERED: ALPRAZolam 0.25 MG TAB PO PRN (10:53)
[2022-06-20 11:09] LABS: Glucose,Whole Blood 250 mg/dL (70-110)
[2022-06-20 11:17] LABS: African American GFR (CKD) 98.5 (60.0-200.0); Anion Gap 6.9 mmol/L (10.00-18.00); BUN/Creat Ratio 25.25 Ratio (12.00-20.00); Blood Urea Nitrogen 20.2 mg/dL (9.0-27.0); Calcium 8.2 mg/dL (8.7-10.3); Carbon Dioxide 32.1 mmol/L (20.0-27.5)
--- NOTE | 2022-06-20 12:41 | P.PN ---
Subjective Progress Note Date: 06/20/22 CHIEF COMPLAINT: Dysphagia HISTORY OF PRESENT ILLNESS: Patient is status post EGD showing a sliding hiatal hernia and esophagitis. Patient tolerating full liquid diet. He denies any difficulty swallowing. Patient had bronchoscopy completed yesterday for mucous plugging and pneumonia. Afebrile. Patient seen and examined with Dr. Henriquez PHYSICAL EXAM: VITAL SIGNS: Reviewed. GENERAL: Well-developed in no acute distress. HEENT: No sclera icterus. Extraocular movements grossly intact. Moist buccal mucosa. Head is atraumatic, normocephalic. ABDOMEN: Soft. Nondistended. Nontender. NEUROLOGIC: Alert and oriented. Cranial nerves II through XII grossly intact. ASSESSMENT: 1. Dysphagia 2. Sliding hiatal hernia and esophagitis noted on EGD PLAN: -Advance diet to dysphagia chopped -Continue to monitor -Continue supportive care -Continue PPI -Okay to discharge from surgical standpoint when medically cleared Physician Fiberglass Laminator note has been reviewed by physician. Signing provider agrees with the documented findings, assessment, and plan of care. Objective - Vital Signs Vital signs: Vital Signs Temp 98.4 F 06/20/22 07:44 Pulse 84 06/20/22 11:12 Resp 16 06/20/22 07:44 BP 151/73 06/20/22 07:44 Pulse Ox 98 06/20/22 07:44 FiO2 Intake & Output 06/19/22 06/20/22 06/20/22 18:59 06:59 18:59 Intake Total 400 Output Total 800 400 Balance -400 -400 Intake: IV 200 Oral 200 Output: Urine 800 400 Other: Voiding Method Toilet Toilet Toilet Urinal Urinal Urinal # Voids 2 2 - Labs CBC & Chem 7: 06/19/22 05:47 06/20/22 07:18 Labs: Abnormal Lab Results - Last 24 Hours (Table) 06/19/22 06/19/22 06/19/22 Range/Units 13:29 17:00 21:07 Carbon Dioxide (20.0-27.5) mmol/L Anion Gap (10.00-18.00) mmol/L BUN/Creatinine Ratio (12.00-20.00) Ratio Glucose (70-110) mg/dL POC Glucose (mg/dL) 204 H 141 H (70-110) mg/dL Calcium (8.7-10.3) mg/dL Viral Test See Below A 06/20/22 06/20/22 06/20/22 Range/Units 07:17 07:18 11:07 Carbon Dioxide 32.1 H (20.0-27.5) mmol/L Anion Gap 6.90 L (10.00-18.00) mmol/L BUN/Creatinine Ratio 25.25 H (12.00-20.00) Ratio Glucose 138 H (70-110) mg/dL POC Glucose (mg/dL) 140 H 250 H (70-110) mg/dL Calcium 8.2 L (8.7-10.3) mg/dL Viral Test Microbiology - Last 24 Hours (Table) 06/19/22 13:29 Gram Stain - Preliminary Bronchial Washings - Random Bronchial Washings Culture - Preliminary 06/19/22 13:29 Acid Fast Bacilli Culture - Preliminary Bronchial Washings - Random 06/19/22 13:29 Fungal Culture - Preliminary Bronchial Washings - Random 06/15/22 15:10 Blood Culture - Preliminary Blood No Growth after 96 hours 06/15/22 15:25 Blood Culture - Preliminary Blood No Growth after 96 hours
[2022-06-20 13:20] LABS: HCT 30.8 % (39.6-50.0); HGB 10.3 g/dL (13.0-17.0); MCH 29.2 pg (27.0-32.0); MCHC 33.4 g/dL (32.0-37.0); MCV 87.3 fL (80.0-97.0); Mean Platelet Volume 11.2 fL (9.5-12.2); NRBC Per 100 WBC 0 /100 WBCS (0.0-0.0); Platelet Count 128 X 10*3/uL (140-440); RBC 3.53 X 10*6/uL (4.40-5.60); RDW 14.7 % (11.5-14.5)
--- NOTE | 2022-06-20 13:43 | P.PN ---
Subjective Progress Note Date: 06/20/22 On today's evaluation of 06/18/2022, seeing the patient for a follow-up. The patient was advised for an acute exacerbation suspected right lung pneumonia. The level was slightly elevated at 0.5.COVID 19 testing was negative. Influenza screen was negative. The patient was started on antibiotics and the patient is currently on a combination of bronchodilators and steroids. No nausea. No vomiting. He is less congested for now. He was having some dysphagia and he was seen by general surgery. He lost around 25-30 pounds in weight and the patient is going to undergo an EGD today. He remains on bronchodilators. He remains on steroid. Cough is still present although it has somewhat subsided. The chest x-ray report done during this current admission on 06/16/2022 showed airspace opacity bilaterally right more than left consistent with pneumonia and the patient remains on a combination of antibiotics including IV Rocephin and Zithromax Today's evaluation of 06/19/2022, seeing the patient for a follow-up. The patient is here for an acute exacerbation of bilateral pneumonia. The patient underwent EGD showed a sliding hiatal hernia. This was done for evaluation of dysphagia. On today's evaluation, the plan is to proceed with bronchoscopy and bronchial lavage. Suspect mucus plugging. Noted the patient has COPD. He is current on examination bronchodilators and steroids and antibiotics. No fever. No chills. He is doing very slow progress and improvement. His performance of functional status is full. The patient is a white cell count today's of 3.6 with a hemoglobin of 10.8 and a platelet count of 106. The patient is having also normal electrolytes, BUN is 20 with a creatinine of 0.8. The sugars today is at 139. 06/20/2022, the patient is doing slow but ongoing progress regarding his COPD and pneumonia. He underwent a bronchoscopy yesterday and copious amounts of thick purulent blister secretions were suctioned out in addition to mucous plugs. The cultures are still pending for now. The patient's overall condition is improved. Remains on examination with the Rocephin and Zithromax. His seconds at 3.3 with a hemoglobin of 10.3 and a platelet count of 128. Rest of the electrolytes are all stable. BUN is a creatinine 0.8. He remains on lisinopril 60 mg every 6 hours. Objective - Vital Signs Vital signs: Vital Signs Temp 98.4 F 06/20/22 07:44 Pulse 84 06/20/22 11:12 Resp 16 06/20/22 07:44 BP 151/73 06/20/22 07:44 Pulse Ox 98 06/20/22 07:44 FiO2 Intake & Output 06/19/22 06/20/22 06/20/22 18:59 06:59 18:59 Intake Total 400 200 Output Total 800 400 Balance -400 -200 Intake: IV 200 Oral 200 200 Output: Urine 800 400 Other: Voiding Method Toilet Toilet Toilet Urinal Urinal Urinal # Voids 2 2 - Exam No acute distress, oriented 3. Currently on 3 L of oxygen. No conversational dyspnea or use of accessory muscles. HEENT examination is grossly unremarkable. Neck supple. Full range of motion. No adenopathy thyromegaly or neck vein distention. Cardiovascular examination reveals regular rhythm rate. S1-S2 normal. No S3 or S4. No discernible murmur noted. Heart sounds are distant. Heart rate 88 bpm. Lungs reveal coarse expiratory rhonchi and expiratory wheezes. Breath sounds are equal. No crackles. Slight prolongation on forced maneuver. Adventitious lung sounds are more prominent on forced maneuver. Saturations are 96% Abdomen soft bowel sounds are heard. No masses or tenderness. Extremities are intact. No cyanosis clubbing or edema. Skin is without rash or lesion. Neurologic examination is brief but nonfocal. - Labs CBC & Chem 7: 06/20/22 07:18 06/20/22 07:18 Labs: Abnormal Lab Results - Last 24 Hours (Table) 06/19/22 06/19/22 06/19/22 Range/Units 13:29 17:00 21:07 WBC (4.50-10.00) X 10*3/uL RBC (4.40-5.60) X 10*6/uL Hgb (13.0-17.0) g/dL Hct (39.6-50.0) % RDW (11.5-14.5) % Plt Count (140-440) X 10*3/uL Carbon Dioxide (20.0-27.5) mmol/L Anion Gap (10.00-18.00) mmol/L BUN/Creatinine Ratio (12.00-20.00) Ratio Glucose (70-110) mg/dL POC Glucose (mg/dL) 204 H 141 H (70-110) mg/dL Calcium (8.7-10.3) mg/dL Viral Test See Below A 06/20/22 06/20/22 06/20/22 Range/Units 07:17 07:18 07:18 WBC 3.30 L (4.50-10.00) X 10*3/uL RBC 3.53 L (4.40-5.60) X 10*6/uL Hgb 10.3 L (13.0-17.0) g/dL Hct 30.8 L (39.6-50.0) % RDW 14.7 H (11.5-14.5) % Plt Count 128 L (140-440) X 10*3/uL Carbon Dioxide 32.1 H (20.0-27.5) mmol/L Anion Gap 6.90 L (10.00-18.00) mmol/L BUN/Creatinine Ratio 25.25 H (12.00-20.00) Ratio Glucose 138 H (70-110) mg/dL POC Glucose (mg/dL) 140 H (70-110) mg/dL Calcium 8.2 L (8.7-10.3) mg/dL Viral Test 06/20/22 Range/Units 11:07 WBC (4.50-10.00) X 10*3/uL RBC (4.40-5.60) X 10*6/uL Hgb (13.0-17.0) g/dL Hct (39.6-50.0) % RDW (11.5-14.5) % Plt Count (140-440) X 10*3/uL Carbon Dioxide (20.0-27.5) mmol/L Anion Gap (10.00-18.00) mmol/L BUN/Creatinine Ratio (12.00-20.00) Ratio Glucose (70-110) mg/dL POC Glucose (mg/dL) 250 H (70-110) mg/dL Calcium (8.7-10.3) mg/dL Viral Test Microbiology - Last 24 Hours (Table) 06/19/22 13:29 Gram Stain - Preliminary Bronchial Washings - Random Bronchial Washings Culture - Preliminary 06/19/22 13:29 Acid Fast Bacilli Culture - Preliminary Bronchial Washings - Random 06/19/22 13:29 Fungal Culture - Preliminary Bronchial Washings - Random 06/15/22 15:10 Blood Culture - Preliminary Blood No Growth after 96 hours 06/15/22 15:25 Blood Culture - Preliminary Blood No Growth after 96 hours Assessment and Plan Plan: Acute on chronic hypoxemic respiratory failure secondary to bilateral pneumonia, community-acquired versus healthcare acquired. The patient underwent bronchoscopy and thick purulent mucous plugs were aspirated. The patient has bilateral pneumonia. Awaiting cultures. He'll be kept on the same antibiotic coverage for now. Acute exacerbation of chronic obstructive pulmonary disease. Recent admission to [facility] for similar symptoms, a computed tomography scan of the chest showed no acute abnormalities other than advanced COPD. Severe stage III COPD, with an FEV1 that is 39% of predicted. Chronic and ongoing tobacco dependence of greater than 50 years. Coronary disease. Hypertension. Hyperlipidemia. Non-Hodgkin's lymphoma, inactive. Carotid atherosclerosis with previous right carotid endarterectomy. Abdominal aortic aneurysm with previous endovascular stent grafting. History of duodenal ulcer with hemorrhage. Plan Awaiting the results of the bronchoscopy and bronchoalveolar lavage Keep same antibiotic coverage Obtain chest x-ray tomorrow Continue bronchodilators and steroids for now. Arrange ECF transfer problem next 48 hours We'll continue to follow.
[2022-06-20 16:44] LABS: Glucose,Whole Blood 145 mg/dL (70-110)
--- NOTE | 2022-06-20 18:10 | P.PN ---
Subjective Progress Note Date: 06/20/22 (delayed charting seen at 1045) Patient is a 77-year-old gentleman with end-stage COPD, non-Hodgkin's lymphoma in the past, and hypertension who presented to the [facility] after being seen by Dr. Cano in the office for shortness of breath and cough. The emergency department he underwent an extensive evaluation. Initial laboratory analysis showed white blood cell count of 3.4, hemoglobin 11.7, and platelets of 99, sodium 129, BUN 43, creatinine 1.75. Chest x-ray showed increased airspace opacities on the right greater than left consistent with pneumonia. He was admitted and was started on IV antibiotics and IV steroids. Pulmonology was consulted. He had a slow continuous improvement. He was complaining of significant dysphagia and surgery was consulted. He underwent EGD on 06/18 which showed esophagitis and a sliding hiatal hernia. Sputum culture came back with normal devyn. COVID-19, and influenza were negative. Patient underwent bronchoscopy on 06/19 which showed copious amounts of sputum. Cultures pending. Patient seen and examined at bedside. Silvia to have some fullness in his ears. States his breathing is good when he is not moving however he is extremely short of breath when up and moving around. General: nontoxic, no distress, appears at stated age Derm: warm, dry, skin tear on left cardona Head: atraumatic, normocephalic, symmetric Eyes: EOMI, no lid lag, anicteric sclera Mouth: no lip lesion, mucus membranes moist Cardiovascular: S1S2 reg, no murmur, positive posterior tibial pulse bilateral, Lungs: Course bs b/l, no accessory muscle use Abdominal: soft, nontender to palpation, no guarding, no appreciable organomegaly Ext: no gross muscle atrophy, 1+ edema b/l LE, no contractures Neuro: CN II-XI grossly intact, no focal neuro deficits Psych: Alert, oriented, appropriate affect Assessment/plan: Acute exacerbation of COPD, severe stage III Pneumonia, possible gram-negative Ongoing tobacco abuse -Pulmonary recommendations -Continue with IV steroids -Continue with Rocephin, has completed Zithromax -Sputum culture negative -Bronch completed on 06/19 with copious amounts of sputum LE edema - Lasix X 1 again Diabetes mellitus type II, newly discovered -A1c 6.6 -Sliding scale insulin -Follow blood sugars -Dietitian recs Iron deficiency anemia Thrombocytopenia - stable - follow CBC Hypomagnesemia, resolved Hyponatremia, resolved BRITT, resolved Chronic: Non-Hodgkin lymphoma, inactive and nontreatment Dyslipidemia Hypertension Coronary artery disease Aortic dissection status post repair line GERD DVT prophylaxis: Heparin Active Medications Generic Name Dose Route Start Last Admin Trade Name Freq PRN Reason Stop Dose Admin Albuterol/Ipratropium 3 ml 06/15/22 14:51 Ipratropium-Albuterol 3 Ml Neb INHALATION RT-Q4H PRN shortness of breath Albuterol/Ipratropium 3 ml 06/15/22 16:00 06/20/22 16:15 Ipratropium-Albuterol 3 Ml Neb INHALATION 3 ml RT-QID ROSALBA Administration Alprazolam 0.25 mg 06/20/22 10:53 Alprazolam 0.25 Mg Tab PO TID PRN Anxiety Aspirin 81 mg 06/15/22 17:00 06/20/22 07:30 Aspirin 81 Mg PO 81 mg DAILY ROSALBA Administration Atorvastatin Calcium 40 mg 06/18/22 21:00 06/19/22 22:06 Atorvastatin 40 Mg Tab PO 40 mg HS ROSALBA Administration Budesonide 1 mg 06/16/22 20:00 06/20/22 07:11 Budesonide 1 Mg/2 Ml Nebu INHALATION Not Given RT-BID ROSALBA Fluticasone Propionate 2 spray 06/18/22 10:45 06/20/22 07:30 Fluticasone 50mcg/[place] Nasal 16gm EA NOSTRIL 2 spray DAILY ROSALBA Administration Formoterol Fumarate 20 mcg 06/16/22 20:00 06/20/22 07:11 Formoterol Fumarate 20 Mcg/2 Ml Nebu INHALATION Not Given RT-BID ROSALBA Guaifenesin 600 mg 06/18/22 10:45 06/20/22 07:30 Guaifenesin 600 Mg Tablet.Er PO 600 mg Q12HR ROSALBA Administration Heparin Sodium (Porcine) 5,000 unit 06/15/22 16:15 06/20/22 15:37 Heparin Sodium,Porcine/Pf 5,000 Unit/0.5 Ml Syringe SQ 5,000 unit Q8HR ROSALBA Administration Ceftriaxone Sodium 1 gm/ 50 mls @ 100 mls/hr 06/20/22 15:00 06/20/22 15:38 Sodium Chloride IVPB 100 mls/hr Q24HR ROSALBA Administration Protocol Insulin Aspart 0 unit 06/15/22 17:30 06/20/22 16:48 Insulin Aspart (Novolog) 100 Unit/Ml Vial SQ Not Given AC-TID ROSALBA Protocol Lactobacillus Acidoph/Bulgaricus 1 each 06/17/22 09:00 06/20/22 07:31 Lactobacillus Acidoph & Bulgar 1 Each Packet PO 1 each BID ROSALBA Administration Lisinopril 10 mg 06/18/22 11:30 06/20/22 07:30 Lisinopril 10 Mg Tab PO 10 mg DAILY ROSALBA Administration Loratadine 10 mg 06/18/22 10:40 Loratadine 10 Mg Tab PO DAILY PRN Allergy Symptoms Methylprednisolone Sodium Succinate 60 mg 06/15/22 18:00 06/20/22 18:05 Methylprednisolone Sod Succi 125 Mg/2 Ml Vial IV 60 mg Q6HR ROSALBA Administration Metoprolol Succinate 25 mg 06/18/22 11:00 06/20/22 07:30 Metoprolol Succinate (Er) 25 Mg Tab.Er.24h PO 25 mg DAILY ROSALBA Administration Miscellaneous Information 1 each 06/15/22 14:51 Pneumonia Protocol Utilized 1 Each Misc PO ONCE PRN Per Protocol Pantoprazole Sodium 40 mg 06/18/22 17:30 06/20/22 18:04 Pantoprazole 40 Mg Tablet PO 40 mg AC-BID ROSALBA Administration Sodium Chloride 1 applic 06/17/22 16:01 06/19/22 22:06 Saline Nasal Gel 14.1 Gm Tube NASAL 1 applic Q4HR PRN Administration Dry Nasal Passages Tamsulosin HCl 0.4 mg 06/18/22 21:00 06/19/22 22:06 Tamsulosin 0.4 Mg Cap.Er.24h PO 0.4 mg HS ROSALBA Administration Objective - Vital Signs Vital signs: Vital Signs Temp 97.9 F 06/20/22 14:00 Pulse 87 06/20/22 16:30 Resp 16 06/20/22 14:00 BP 143/73 06/20/22 14:00 Pulse Ox 96 06/20/22 16:16 FiO2 Intake & Output 06/19/22 06/20/22 06/20/22 18:59 06:59 18:59 Intake Total 400 200 Output Total 800 400 Balance -400 -200 Weight 56.699 kg Intake: IV 200 Oral 200 200 Output: Urine 800 400 Other: Voiding Method Toilet Toilet Toilet Urinal Urinal Urinal # Voids 2 2 - Labs CBC & Chem 7: 06/20/22 07:18 06/20/22 07:18 Labs: Abnormal Lab Results - Last 24 Hours (Table) 06/19/22 06/19/22 06/20/22 Range/Units 13:29 21:07 07:17 WBC (4.50-10.00) X 10*3/uL RBC (4.40-5.60) X 10*6/uL Hgb (13.0-17.0) g/dL Hct (39.6-50.0) % RDW (11.5-14.5) % Plt Count (140-440) X 10*3/uL Carbon Dioxide (20.0-27.5) mmol/L Anion Gap (10.00-18.00) mmol/L BUN/Creatinine Ratio (12.00-20.00) Ratio Glucose (70-110) mg/dL POC Glucose (mg/dL) 141 H 140 H (70-110) mg/dL Calcium (8.7-10.3) mg/dL Viral Test See Below A 06/20/22 06/20/22 06/20/22 Range/Units 07:18 07:18 11:07 WBC 3.30 L (4.50-10.00) X 10*3/uL RBC 3.53 L (4.40-5.60) X 10*6/uL Hgb 10.3 L (13.0-17.0) g/dL Hct 30.8 L (39.6-50.0) % RDW 14.7 H (11.5-14.5) % Plt Count 128 L (140-440) X 10*3/uL Carbon Dioxide 32.1 H (20.0-27.5) mmol/L Anion Gap 6.90 L (10.00-18.00) mmol/L BUN/Creatinine Ratio 25.25 H (12.00-20.00) Ratio Glucose 138 H (70-110) mg/dL POC Glucose (mg/dL) 250 H (70-110) mg/dL Calcium 8.2 L (8.7-10.3) mg/dL Viral Test 06/20/22 Range/Units 16:43 WBC (4.50-10.00) X 10*3/uL RBC (4.40-5.60) X 10*6/uL Hgb (13.0-17.0) g/dL Hct (39.6-50.0) % RDW (11.5-14.5) % Plt Count (140-440) X 10*3/uL Carbon Dioxide (20.0-27.5) mmol/L Anion Gap (10.00-18.00) mmol/L BUN/Creatinine Ratio (12.00-20.00) Ratio Glucose (70-110) mg/dL POC Glucose (mg/dL) 145 H (70-110) mg/dL Calcium (8.7-10.3) mg/dL Viral Test Microbiology - Last 24 Hours (Table) 06/15/22 15:25 Blood Culture - Preliminary Blood No Growth after 120 hours 06/15/22 15:10 Blood Culture - Preliminary Blood No Growth after 120 hours 06/19/22 13:29 Gram Stain - Preliminary Bronchial Washings - Random Bronchial Washings Culture - Preliminary Gram Neg Bacilli 06/19/22 13:29 Acid Fast Bacilli Culture - Preliminary Bronchial Washings - Random 06/19/22 13:29 Fungal Culture - Preliminary Bronchial Washings - Random
[2022-06-20 20:51] LABS: Glucose,Whole Blood 153 mg/dL (70-110)
[2022-06-20] MEDS: ATORVASTATIN 40 MG TAB PO SCH (21:05)
[2022-06-20] MEDS: TAMSULOSIN 0.4 MG CAP.ER.24H PO SCH (21:06)
[2022-06-21] MEDS: HEPARIN SODIUM,PORCINE/PF 5,000 UNIT/0.5 ML SYRINGE SQ SCH ×4 (00:51→22:49)
[2022-06-21] MEDS: methylPREDNISolone SOD SUCCI 125 MG/2 ML VIAL IV SCH ×3 (00:52→12:31)
[2022-06-21 07:15] LABS: Glucose,Whole Blood 141 mg/dL (70-110)
[2022-06-21] MEDS: INSULIN ASPART (NovoLOG) 100 UNIT/ML VIAL SQ SCH ×3 (07:23→17:48)
[2022-06-21] MEDS: FORMOTEROL FUMARATE 20 MCG/2 ML NEBU INHALATION SCH (08:03)
[2022-06-21] MEDS: BUDESONIDE 1 MG/2 ML NEBU INHALATION SCH (08:03)
[2022-06-21] MEDS: IPRATROPIUM-ALBUTEROL 3 ML NEB INHALATION SCH ×4 (08:03→20:45)
[2022-06-21] MEDS: FLUTICASONE 50MCG/SPRAY NASAL 16GM EA NOSTRIL SCH (08:28)
[2022-06-21] MEDS: ASPIRIN 81 MG PO SCH (08:28)
[2022-06-21] MEDS: LACTOBACILLUS ACIDOPH & BULGAR 1 EACH PACKET PO SCH ×3 (08:28→20:00)
[2022-06-21] MEDS: PANTOPRAZOLE 40 MG TABLET PO SCH ×2 (08:28→17:47)
[2022-06-21] MEDS: lisinopriL 10 MG TAB PO SCH (08:28)
[2022-06-21] MEDS: guaiFENesin 600 MG TABLET.ER PO SCH ×2 (08:28→20:00)
[2022-06-21] MEDS: METOPROLOL SUCCINATE (ER) 25 MG TAB.ER.24H PO SCH (08:28)
--- NOTE | 2022-06-21 09:29 | XR ---
EXAMINATION TYPE: XR chest 1V portable DATE OF EXAM: 06/21/2022 COMPARISON: 06/19/2022 HISTORY: Cough TECHNIQUE: Single frontal view of the chest is obtained. FINDINGS: Heart size normal mass postoperative changes with atherosclerotic change aorta. Patchy gila ateral infiltrates. Coarsened interstitium. Arthropathy of the shoulder with diffuse osteopenia. IMPRESSION: COPD bilateral patchy infiltrates are stable. Correlate for pulmonary fibrosis
[2022-06-21] MEDS ORDERED: INFLUENZA VACC HIGH-DOSE (65+) 240 MCG/0.7 ML SYRINGE IM ONE (09:39)
[2022-06-21 11:20] LABS: Glucose,Whole Blood 197 mg/dL (70-110)
--- NOTE | 2022-06-21 11:32 | P.PN ---
Subjective Progress Note Date: 06/21/22 CHIEF COMPLAINT: Dysphagia HISTORY OF PRESENT ILLNESS: Patient is status post EGD showing a sliding hiatal hernia and esophagitis. Patient tolerating chopped diet. He denies any difficulty swallowing. Afebrile. Patient seen and examined with Dr. Henriquez PHYSICAL EXAM: VITAL SIGNS: Reviewed. GENERAL: Well-developed in no acute distress. HEENT: No sclera icterus. Extraocular movements grossly intact. Moist buccal mucosa. Head is atraumatic, normocephalic. ABDOMEN: Soft. Nondistended. Nontender. NEUROLOGIC: Alert and oriented. Cranial nerves II through XII grossly intact. ASSESSMENT: 1. Dysphagia 2. Sliding hiatal hernia and esophagitis noted on EGD PLAN: -Continue dysphagia chopped diet -Continue to monitor -Continue supportive care -Continue PPI -Okay to discharge from surgical standpoint when medically cleared Physician [employer]ch[employer] note has been reviewed by physician. Signing provider agrees with the documented findings, assessment, and plan of care. Objective - Vital Signs Vital signs: Vital Signs Temp 98.0 F 06/21/22 08:00 Pulse 80 06/21/22 11:24 Resp 19 06/21/22 08:00 BP 156/84 06/21/22 08:00 Pulse Ox 99 06/21/22 08:00 FiO2 Intake & Output 06/20/22 06/21/22 06/21/22 18:59 06:59 18:59 Intake Total 450 Output Total 1850 600 Balance -1400 -600 Weight 56.699 kg Intake: Oral 450 Output: Urine 1850 600 Other: Voiding Method Toilet Toilet Urinal Urinal # Voids 2 - Labs CBC & Chem 7: 06/20/22 07:18 06/20/22 07:18 Labs: Abnormal Lab Results - Last 24 Hours (Table) 06/20/22 06/20/22 06/20/22 Range/Units 07:18 16:43 20:43 WBC 3.30 L (4.50-10.00) X 10*3/uL RBC 3.53 L (4.40-5.60) X 10*6/uL Hgb 10.3 L (13.0-17.0) g/dL Hct 30.8 L (39.6-50.0) % RDW 14.7 H (11.5-14.5) % Plt Count 128 L (140-440) X 10*3/uL POC Glucose (mg/dL) 145 H 153 H (70-110) mg/dL 06/21/22 06/21/22 Range/Units 07:13 11:19 WBC (4.50-10.00) X 10*3/uL RBC (4.40-5.60) X 10*6/uL Hgb (13.0-17.0) g/dL Hct (39.6-50.0) % RDW (11.5-14.5) % Plt Count (140-440) X 10*3/uL POC Glucose (mg/dL) 141 H 197 H (70-110) mg/dL Microbiology - Last 24 Hours (Table) 06/19/22 13:29 Acid Fast Bacilli Smear - Final Bronchial Washings - Random Acid Fast Bacilli Culture - Preliminary 06/15/22 15:25 Blood Culture - Preliminary Blood No Growth after 120 hours 06/15/22 15:10 Blood Culture - Preliminary Blood No Growth after 120 hours 06/19/22 13:29 Gram Stain - Preliminary Bronchial Washings - Random Bronchial Washings Culture - Preliminary Gram Neg Bacilli
--- NOTE | 2022-06-21 15:01 | P.PN ---
Subjective Progress Note Date: 06/21/22 On today's evaluation of 06/18/2022, seeing the patient for a follow-up. The patient was advised for an acute exacerbation suspected right lung pneumonia. The level was slightly elevated at 0.5.COVID 19 testing was negative. Influenza screen was negative. The patient was started on antibiotics and the patient is currently on a combination of bronchodilators and steroids. No nausea. No vomiting. He is less congested for now. He was having some dysphagia and he was seen by general surgery. He lost around 25-30 pounds in weight and the patient is going to undergo an EGD today. He remains on bronchodilators. He remains on steroid. Cough is still present although it has somewhat subsided. The chest x-ray report done during this current admission on 06/16/2022 showed airspace opacity bilaterally right more than left consistent with pneumonia and the patient remains on a combination of antibiotics including IV Rocephin and Zithromax Today's evaluation of 06/19/2022, seeing the patient for a follow-up. The patient is here for an acute exacerbation of bilateral pneumonia. The patient underwent EGD showed a sliding hiatal hernia. This was done for evaluation of dysphagia. On today's evaluation, the plan is to proceed with bronchoscopy and bronchial lavage. Suspect mucus plugging. Noted the patient has COPD. He is current on examination bronchodilators and steroids and antibiotics. No fever. No chills. He is doing very slow progress and improvement. His performance of functional status is full. The patient is a white cell count today's of 3.6 with a hemoglobin of 10.8 and a platelet count of 106. The patient is having also normal electrolytes, BUN is 20 with a creatinine of 0.8. The sugars today is at 139. 06/20/2022, the patient is doing slow but ongoing progress regarding his COPD and pneumonia. He underwent a bronchoscopy yesterday and copious amounts of thick purulent blister secretions were suctioned out in addition to mucous plugs. The cultures are still pending for now. The patient's overall condition is improved. Remains on examination with the Rocephin and Zithromax. His seconds at 3.3 with a hemoglobin of 10.3 and a platelet count of 128. Rest of the electrolytes are all stable. BUN is a creatinine 0.8. He remains on solumedrol 60 mg every 6 hours. 13 2021, clinically stable, still having some congested cough. Bronchoscopy was done and the bronchial lavage showing gram-negative bacillus and the final culture is still pending for now. The patient remains on IV Rocephin. The patient remains on IV Solu-Medrol. He has decided he wants to go home and do home PT. A repeat chest x-ray was done today and I will send the findings are probably slightly improved on the right. For the most part, the findings are stable and the patient continues to have some patchy infiltrates bilaterally. There is underlying COPD. Remains on bronchodilators. Blood work from today shows a blood sugar of 197. The rest of the blood work is repeated tomorrow. Objective - Vital Signs Vital signs: Vital Signs Temp 97.7 F 06/21/22 13:18 Pulse 84 06/21/22 13:18 Resp 18 06/21/22 13:18 BP 132/73 06/21/22 13:18 Pulse Ox 97 06/21/22 14:00 FiO2 Intake & Output 06/20/22 06/21/22 06/21/22 18:59 06:59 18:59 Intake Total 450 Output Total 1850 600 Balance -1400 -600 Weight 56.699 kg Intake: Oral 450 Output: Urine 1850 600 Other: Voiding Method Toilet Toilet Urinal Urinal # Voids 2 - Exam No acute distress, oriented 3. Currently on 3 L of oxygen. No conversational dyspnea or use of accessory muscles. HEENT examination is grossly unremarkable. Neck supple. Full range of motion. No adenopathy thyromegaly or neck vein distention. Cardiovascular examination reveals regular rhythm rate. S1-S2 normal. No S3 or S4. No discernible murmur noted. Heart sounds are distant. Heart rate 88 bpm. Lungs reveal coarse expiratory rhonchi and expiratory wheezes. Breath sounds are equal. No crackles. Slight prolongation on forced maneuver. Adventitious lung sounds are more prominent on forced maneuver. Saturations are 96% Abdomen soft bowel sounds are heard. No masses or tenderness. Extremities are intact. No cyanosis clubbing or edema. Skin is without rash or lesion. Neurologic examination is brief but nonfocal. - Labs CBC & Chem 7: 06/20/22 07:18 06/20/22 07:18 Labs: Abnormal Lab Results - Last 24 Hours (Table) 06/20/22 06/20/22 06/21/22 Range/Units 16:43 20:43 07:13 POC Glucose (mg/dL) 145 H 153 H 141 H (70-110) mg/dL 06/21/22 Range/Units 11:19 POC Glucose (mg/dL) 197 H (70-110) mg/dL Microbiology - Last 24 Hours (Table) 06/19/22 13:29 Acid Fast Bacilli Smear - Final Bronchial Washings - Random Acid Fast Bacilli Culture - Preliminary 06/15/22 15:25 Blood Culture - Preliminary Blood No Growth after 120 hours 06/15/22 15:10 Blood Culture - Preliminary Blood No Growth after 120 hours 06/19/22 13:29 Gram Stain - Preliminary Bronchial Washings - Random Bronchial Washings Culture - Preliminary Gram Neg Bacilli Assessment and Plan Plan: Acute on chronic hypoxemic respiratory failure secondary to bilateral pneumonia, community-acquired versus healthcare acquired. The patient underwent bronchoscopy and thick purulent mucous plugs were aspirated. The patient has bilateral pneumonia. Awaiting cultures. He'll be kept on the same antibiotic coverage for now. The patient had a bronchoscopy in the [place] SHOWING GRAM- NEGATIVE BACILLUS. CHEST X-RAY FINDINGS ARE STABLE, PROBABLY SLIGHTLY IMPROVED., Acute exacerbation of chronic obstructive pulmonary disease. Recent admission to [facility] for similar symptoms, a computed tomography scan of the chest showed no acute abnormalities other than advanced COPD. Severe stage III COPD, with an FEV1 that is 39% of predicted. Chronic and ongoing tobacco dependence of greater than 50 years. Coronary disease. Hypertension. Hyperlipidemia. Non-Hodgkin's lymphoma, inactive. Carotid atherosclerosis with previous right carotid endarterectomy. Abdominal aortic aneurysm with previous endovascular stent grafting. History of duodenal ulcer with hemorrhage. Plan Awaiting the results of the bronchoscopy and bronchoalveolar lavage , PRELIMINARY CULTURES ARE GRAM-NEGATIVE BACILLUS Keep same antibiotic coverage Discontinue the IV Solu-Medrol and put the patient a prednisone burst taper Possible home within the next 24-48 hours once the final cultures are not available Provide the patient a flutter valve as the patient appears to have chest congestion and also provide him an incentive spirometer. Lasix 40 mg IV 2 doses as the patient is experiencing increased lower exam of t he edema. IV fluids are currently at KVO. We'll continue to follow.
--- NOTE | 2022-06-21 15:20 | P.PN ---
Subjective Progress Note Date: 06/21/22 (delayed charting seen at 1015) Patient is a 77-year-old gentleman with end-stage COPD, non-Hodgkin's lymphoma in the past, and hypertension who presented to the [facility] after being seen by Dr. Cano in the office for shortness of breath and cough. The emergency department he underwent an extensive evaluation. Initial laboratory analysis showed white blood cell count of 3.4, hemoglobin 11.7, and platelets of 99, sodium 129, BUN 43, creatinine 1.75. Chest x-ray showed increased airspace opacities on the right greater than left consistent with pneumonia. He was admitted and was started on IV antibiotics and IV steroids. Pulmonology was consulted. He had a slow continuous improvement. He was complaining of significant dysphagia and surgery was consulted. He underwent EGD on 06/18 which showed esophagitis and a sliding hiatal hernia. Sputum culture came back with normal devyn. COVID-19, and influenza were negative. Patient underwent bronchoscopy on 06/19 which showed copious amounts of sputum. Cultures pending. Patient seen and examined at bedside. He does not like the 20 minute breathing treatment in the morning. He refused it yesterday and today because it "exhausts him too much". Breathing is not difficult at rest but still significantly difficult with movement. General: nontoxic, no distress, appears at stated age Derm: warm, dry Head: atraumatic, normocephalic, symmetric Eyes: EOMI, no lid lag, anicteric sclera Mouth: no lip lesion, mucus membranes moist Cardiovascular: S1S2 reg, no murmur, positive posterior tibial pulse bilateral, Lungs: Course bs b/l, no accessory muscle use Abdominal: soft, nontender to palpation, no guarding, no appreciable organomegaly Ext: no gross muscle atrophy, 1+ edema b/l LE, no contractures Neuro: CN II-XI grossly intact, no focal neuro deficits Psych: Alert, oriented, appropriate affect Assessment/plan: Acute exacerbation of COPD, severe stage III ESBL E. COLI Pneumonia Ongoing tobacco abuse -Pulmonary recommendations -Continue with IV steroids - Change antibiotics to Merrem - Consult ID -Bronch completed on 06/19 with copious amounts of sputum - Bronchodilators LE edema - Lasix - Compression stockings, elevate legs Diabetes mellitus type II, newly discovered -A1c 6.6 -Sliding scale insulin -Follow blood sugars -Dietitian recs Iron deficiency anemia Thrombocytopenia - stable - follow CBC Hypomagnesemia, resolved Hyponatremia, resolved BRITT, resolved Chronic: Non-Hodgkin lymphoma, inactive and nontreatment Dyslipidemia Hypertension Coronary artery disease Aortic dissection status post repair line GERD DVT prophylaxis: Heparin Active Medications Generic Name Dose Route Start Last Admin Trade Name Freq PRN Reason Stop Dose Admin Albuterol/Ipratropium 3 ml 06/15/22 14:51 Ipratropium-Albuterol 3 Ml Neb INHALATION RT-Q4H PRN shortness of breath Albuterol/Ipratropium 3 ml 06/15/22 16:00 06/21/22 11:13 Ipratropium-Albuterol 3 Ml Neb INHALATION 3 ml RT-QID ROSALBA Administration Alprazolam 0.25 mg 06/20/22 10:53 06/20/22 21:13 Alprazolam 0.25 Mg Tab PO 0.25 mg TID PRN Administration Anxiety Aspirin 81 mg 06/15/22 17:00 06/21/22 08:28 Aspirin 81 Mg PO 81 mg DAILY ROSALBA Administration Atorvastatin Calcium 40 mg 06/18/22 21:00 06/20/22 21:05 Atorvastatin 40 Mg Tab PO 40 mg HS ROSALBA Administration Budesonide/Formoterol Fumarate 2 puff 06/21/22 20:00 Symbicort 160-4.5 Mcg Inhaler INHALATION RT-BID ROSALBA Fluticasone Propionate 2 spray 06/18/22 10:45 06/21/22 08:28 Fluticasone 50mcg/Means Nasal 16gm EA NOSTRIL 2 spray DAILY ROSALBA Administration Furosemide 40 mg 06/21/22 15:30 Furosemide 10 Mg/Ml 4 Ml Vial IV 06/21/22 21:01 Q12HR ROSALBA Guaifenesin 600 mg 06/18/22 10:45 06/21/22 08:28 Guaifenesin 600 Mg Tablet.Er PO 600 mg Q12HR ROSALBA Administration Heparin Sodium (Porcine) 5,000 unit 06/15/22 16:15 06/21/22 08:26 Heparin Sodium,Porcine/Pf 5,000 Unit/0.5 Ml Syringe SQ 5,000 unit Q8HR ROSALBA Administration Meropenem 500 mg/ Sodium 100 mls @ 33.3 mls/hr 06/21/22 16:00 Chloride IVPB Q8HR ROSALBA Protocol Insulin Aspart 0 unit 06/15/22 17:30 06/21/22 12:31 Insulin Aspart (Novolog) 100 Unit/Ml Vial SQ 3 unit AC-TID ROSALBA Administration Protocol Lactobacillus Acidoph/Bulgaricus 1 each 06/17/22 09:00 06/21/22 08:31 Lactobacillus Acidoph & Bulgar 1 Each Packet PO Not Given BID ROSALBA Lisinopril 10 mg 06/18/22 11:30 06/21/22 08:28 Lisinopril 10 Mg Tab PO 10 mg DAILY ROSALBA Administration Loratadine 10 mg 06/18/22 10:40 Loratadine 10 Mg Tab PO DAILY PRN Allergy Symptoms Metoprolol Succinate 25 mg 06/18/22 11:00 06/21/22 08:28 Metoprolol Succinate (Er) 25 Mg Tab.Er.24h PO 25 mg DAILY ROSALBA Administration Miscellaneous Information 1 each 06/15/22 14:51 Pneumonia Protocol Utilized 1 Each Misc PO ONCE PRN Per Protocol Pantoprazole Sodium 40 mg 06/18/22 17:30 06/21/22 08:28 Pantoprazole 40 Mg Tablet PO 40 mg AC-BID ROSALBA Administration Prednisone 40 mg 06/22/22 09:00 Prednisone 20 Mg Tab PO DAILY ROSALBA Sodium Chloride 1 applic 06/17/22 16:01 06/19/22 22:06 Saline Nasal Gel 14.1 Gm Tube NASAL 1 applic Q4HR PRN Administration Dry Nasal Passages Tamsulosin HCl 0.4 mg 06/18/22 21:00 06/20/22 21:06 Tamsulosin 0.4 Mg Cap.Er.24h PO 0.4 mg HS ROSALBA Administration Objective - Vital Signs Vital signs: Vital Signs Temp 97.7 F 06/21/22 13:18 Pulse 84 06/21/22 13:18 Resp 18 06/21/22 13:18 BP 132/73 06/21/22 13:18 Pulse Ox 97 06/21/22 14:00 FiO2 Intake & Output 06/20/22 06/21/22 06/21/22 18:59 06:59 18:59 Intake Total 450 Output Total 1850 600 Balance -1400 -600 Weight 56.699 kg Intake: Oral 450 Output: Urine 1850 600 Other: Voiding Method Toilet Toilet Urinal Urinal # Voids 2 - Labs CBC & Chem 7: 06/20/22 07:18 06/20/22 07:18 Labs: Abnormal Lab Results - Last 24 Hours (Table) 06/20/22 06/20/22 06/21/22 Range/Units 16:43 20:43 07:13 POC Glucose (mg/dL) 145 H 153 H 141 H (70-110) mg/dL 06/21/22 Range/Units 11:19 POC Glucose (mg/dL) 197 H (70-110) mg/dL Microbiology - Last 24 Hours (Table) 06/19/22 13:29 Gram Stain - Final Bronchial Washings - Random Bronchial Washings Culture - Final Escherichia coli 06/19/22 13:29 Acid Fast Bacilli Smear - Final Bronchial Washings - Random Acid Fast Bacilli Culture - Preliminary 06/15/22 15:25 Blood Culture - Preliminary Blood No Growth after 120 hours 06/15/22 15:10 Blood Culture - Preliminary Blood No Growth after 120 hours
[2022-06-21] MEDS: FUROSEMIDE 10 MG/ML 4 ML VIAL IV SCH ×2 (15:24→20:00)
[2022-06-21] MEDS ORDERED: MEROPENEM 500 MG in SODIUM CHLORIDE 0.9% 100 ML IVPB SCH (16:00)
[2022-06-21 16:42] LABS: Glucose,Whole Blood 220 mg/dL (70-110)
[2022-06-21 19:52] LABS: Appearance,BF Turbid Clumped
[2022-06-21 19:58] LABS: Glucose,Whole Blood 176 mg/dL (70-110)
[2022-06-21] MEDS: ATORVASTATIN 40 MG TAB PO SCH (20:00)
[2022-06-21] MEDS: TAMSULOSIN 0.4 MG CAP.ER.24H PO SCH (20:00)
[2022-06-21] MEDS: SYMBICORT 160-4.5 MCG INHALER INHALATION SCH (20:45)
[2022-06-21] MEDS ORDERED: FUROSEMIDE 10 MG/ML 4 ML VIAL IV SCH (21:00)
--- NOTE | 2022-06-21 22:20 | P.CONS ---
History of Present Illness - Reason for Consult Consult date: 06/21/22 ESBL E. coli in the sputum Requesting physician: Desire Martinez - Chief Complaint Shortness of breath x few days - History of Present Illness Patient is a 77-year male with a past medical history sniffing for hypertension COPD non-Hodgkin lymphoma presenting to the ER about a week ago on 06/15/2022 for evaluation of increasing shortness of breath that apparently has been getting worse for couple of days before presentation to the hospital patient denies having any chest pain he did have a cough moderate intensity with occasional sputum production denies any hemoptysis patient presented to the hospital was afebrile and no fever has been recorded subsequently patient did have a leukopenia on admission white count subsequently normalized creatinine normal kidney function procalcitonin was mildly elevated on admission 0.50 liver enzymes are normal patient did have a blood culture and sputum on 06/15/2020 due to's were negative patient subsequently did have a bronchoscopy with bronchoalveolar lavage completed on 06/19/2022 negative for malignancy however cultures came back positive for ESBL E. coli patient was started on meropenem infectious disease was consulted for further management of antibiotic therapy, patient did have a chest x-ray on admission COPD increasing airspace opacities bilaterally right greater than left chest x-ray last on 11/18/2019 today shows a COPD with patchy bilateral perihilar infiltrate greater on the right Review of Systems Positive point has been mentioned in the HPI rest of the systems are negative Past Medical History Past Medical History: Cancer, COPD, Hypertension Additional Past Medical History / Comment(s): non-hodgkins lymphoma, coronary arteriosclerosis, anemia History of Any Multi-Drug Resistant Organisms: C-DIFF Year Discovered:: October 2021 MDRO Source:: stool Past Surgical History: Back Surgery, Coronary Bypass/CABG Additional Past Surgical History / Comment(s): AAA repair in 03/30 with stent placed, carotid endarterectomy, on flomax for not emptying bladder per patient Smoking Status: Current every day smoker Medications and Allergies Home Medications Medication Instructions Recorded Confirmed Type Albuterol Inhaler [Ventolin Hfa 1 - 2 puff INHALATION RT-Q4H PRN 06/15/22 06/15/22 History Inhaler] Aspirin EC [Ecotrin Low Dose] 81 mg PO HS 06/15/22 06/15/22 History Fluticasone Nasal [place] [Flonase 1 spray EA NOSTRIL DAILY PRN 06/15/22 06/15/22 History Nasal [place]] Fluticasone Propion/Salmeterol 1 puff INHALATION RT-BID 06/15/22 06/15/22 History [Fluticasone-Salmeterol 100-50] Loratadine [Claritin] 10 mg PO DAILY PRN 06/15/22 06/15/22 History Metoprolol Succinate [Metoprolol 25 mg PO DAILY 06/15/22 06/15/22 History Succinate ER] Multivitamins, Thera [Multivitamin 1 tab PO DAILY 06/15/22 06/15/22 History (formulary)] Nitroglycerin Sl Tabs [Nitrostat] 0.4 mg SUBLINGUAL Q5M PRN 06/15/22 06/15/22 History [place]-3/Dha/Epa/Fish Oil [Fish Oil 1 cap PO HS 06/15/22 06/15/22 History 1,000 mg Softgel] Omeprazole [PriLOSEC] 20 mg PO DAILY PRN 06/15/22 06/15/22 History Pantoprazole [Protonix] 40 mg PO BID 06/15/22 06/15/22 History Simvastatin 80 mg PO HS 06/15/22 06/15/22 History Tamsulosin [Flomax] 0.4 mg PO HS 06/15/22 06/15/22 History Tiotropium 2.5 Mcg/Puff [Spiriva 2 puff INHALATION RT-HS 06/15/22 06/15/22 History Respimat 2.5 Mcg] lisinopriL [Zestril] 10 mg PO DAILY 06/15/22 06/15/22 History Budesonide-Formot 160-4.5 Mcg 2 puff INHALATION RT-BID each 06/22/22 Rx [Symbicort 160-4.5 Mcg Inhaler] Ertapenem [INVanz] 1 gm IVPB DAILY #10 each 06/22/22 Rx Lactobacillus Acidoph & Bulgar 1 each PO TID packet 06/22/22 Rx [Lactinex] guaiFENesin [Mucinex] 600 mg PO Q12HR tab 06/22/22 Rx predniSONE [Deltasone] 40 mg PO DAILY #30 tab 06/22/22 Rx Allergies Allergy/AdvReac Type Severity Reaction Status Date / Time No Known Allergies Allergy Verified 06/15/22 20:24 Physical Exam Vitals: Vital Signs Temp Pulse Pulse Resp BP BP Pulse Ox 06/21/22 21:00 94 06/21/22 20:46 92 06/21/22 20:00 98.2 F 89 16 118/61 97 06/21/22 16:04 90 06/21/22 15:56 88 06/21/22 14:00 97 06/21/22 13:18 97.7 F 84 18 132/73 97 06/21/22 11:24 80 06/21/22 11:16 76 06/21/22 08:00 98.0 F 77 19 156/84 99 06/21/22 01:07 98.0 F 85 18 157/67 98 Intake and Output 06/21/22 06/21/22 06/21/22 06:59 14:59 22:59 Output Total 600 Balance -600 Output: Urine 600 Other: Voiding Method Toilet # Voids 3 GENERAL DESCRIPTION: Elderly male lying in bed, no distress. No tachypnea or accessory muscle of respiration use. HEENT: Shows Pallor , no scleral icterus. Oral mucous membrane is dry. No pharyngeal erythema or thrush NECK: Trachea central, no thyromegaly. LUNGS: Unlabored breathing. Decreased intensity of breath sound. No wheeze or crackle. HEART: S1, S2, regular rate and rhythm. No loud murmur ABDOMEN: Soft, no tenderness , guarding or rigidity, no organomegaly EXTREMITIES: No edema of feet. SKIN: No rash, no masses palpable. NEUROLOGICAL: The patient is awake, alert, oriented x3, mood and affect normal. Results CBC & Chem 7: 06/22/22 06:23 06/22/22 06:23 Labs: Abnormal Lab Results - Last 24 Hours (Table) 06/21/22 06/21/22 06/21/22 Range/Units 07:13 11:19 16:40 POC Glucose (mg/dL) 141 H 197 H 220 H (70-110) mg/dL 06/21/22 Range/Units 19:57 POC Glucose (mg/dL) 176 H (70-110) mg/dL Microbiology - Last 24 Hours (Table) 06/15/22 15:10 Blood Culture - Final Blood No Growth after 144 hours 06/15/22 15:25 Blood Culture - Final Blood No Growth after 144 hours 06/19/22 13:29 Gram Stain - Final Bronchial Washings - Random Bronchial Washings Culture - Final Escherichia coli 06/19/22 13:29 Acid Fast Bacilli Smear - Final Bronchial Washings - Random Acid Fast Bacilli Culture - Preliminary Assessment and Plan (1) Pneumonia Current Visit: Yes Status: Acute Code(s): J18.9 - PNEUMONIA, UNSPECIFIED ORGANISM SNOMED Code(s): 125121689 Plan: 1patient presented to hospital with increasing shortness of breath and cough in this patient evidence of bilateral perihilar infiltrate more on the right side concerning for pneumonia in this patient with status post bronchoscopy with the bronchoalveolar lavage positive for ESBL E. coli possible component of pneumonia. 2patient to continue with the meropenem dose to be adjusted to 1 g every 8 hours normal kidney function finishing therapy with the Invanz 1 g daily at least 10-day course of therapy. 3midline placement for outpatient IV antibiotics. We will follow on clinical condition and cultures to further adjust medication if needed Thank you for this consultation will follow this patient along with you Time with Patient: Greater than 30
[2022-06-21] MEDS: MEROPENEM 1,000 MG in SODIUM CHLORIDE 0.9% 100 ML IVPB SCH (22:49)
[2022-06-22 07:00] LABS: HCT 34.8 % (39.0-53.0); MCH 30.4 pg (25.0-35.0); MCHC 34.5 g/dL (31.0-37.0); MCV 88.2 fL (80.0-100.0); Mean Platelet Volume 9.5; Platelet Count 137 k/uL (150-450); RBC 3.94 m/uL (4.30-5.90); RDW 13.8 % (11.5-15.5)
[2022-06-22 07:10] LABS: African American GFR (CKD) 68 (>60 ml/min/1.73 sqM); Blood Urea Nitrogen 34 mg/dL (9-20); Calcium 8.6 mg/dL (8.4-10.2); Chloride 88 mmol/L (98-107); Glucose 103 mg/dL (74-99); Non-African American GFR(CKD) 59 (>60 ml/min/1.73 sqM); Potassium 3.4 mmol/L (3.5-5.1); Sodium 134 mmol/L (137-145)
[2022-06-22 07:16] LABS: Anion Gap 1 mmol/L
[2022-06-22 07:25] LABS: Carbon Dioxide 45 mmol/L (22-30)
[2022-06-22] MEDS ORDERED: POTASSIUM CHLORIDE ER 20 MEQ TAB.ER PO STA (07:27)
[2022-06-22 07:44] LABS: Glucose,Whole Blood 94 mg/dL (70-110)
[2022-06-22] MEDS: INSULIN ASPART (NovoLOG) 100 UNIT/ML VIAL SQ SCH ×3 (08:28→17:04)
[2022-06-22] MEDS: MEROPENEM 1,000 MG in SODIUM CHLORIDE 0.9% 100 ML IVPB SCH (08:41)
[2022-06-22] MEDS: HEPARIN SODIUM,PORCINE/PF 5,000 UNIT/0.5 ML SYRINGE SQ SCH ×2 (08:42→15:50)
[2022-06-22] MEDS: PANTOPRAZOLE 40 MG TABLET PO SCH ×2 (08:43→17:06)
[2022-06-22] MEDS: IPRATROPIUM-ALBUTEROL 3 ML NEB INHALATION SCH ×3 (08:51→16:29)
[2022-06-22] MEDS: SYMBICORT 160-4.5 MCG INHALER INHALATION SCH (08:51)
[2022-06-22] MEDS ORDERED: predniSONE 20 MG TAB PO SCH (09:00)
[2022-06-22] MEDS: lisinopriL 10 MG TAB PO SCH (13:19)
[2022-06-22] MEDS: METOPROLOL SUCCINATE (ER) 25 MG TAB.ER.24H PO SCH (13:19)
[2022-06-22] MEDS: LACTOBACILLUS ACIDOPH & BULGAR 1 EACH PACKET PO SCH (13:20)
[2022-06-22] MEDS: guaiFENesin 600 MG TABLET.ER PO SCH (13:20)
[2022-06-22] MEDS: ASPIRIN 81 MG PO SCH (13:20)
[2022-06-22] MEDS: FLUTICASONE 50MCG/SPRAY NASAL 16GM EA NOSTRIL SCH (13:21)
--- NOTE | 2022-06-22 13:29 | P.PN ---
Subjective Progress Note Date: 06/22/22 CHIEF COMPLAINT: Dysphagia HISTORY OF PRESENT ILLNESS: Patient is status post EGD showing a sliding hiatal hernia and esophagitis. Patient tolerating chopped diet. He denies any difficulty swallowing. Afebrile. Patient seen and examined with Dr. Henriquez PHYSICAL EXAM: VITAL SIGNS: Reviewed. GENERAL: Well-developed in no acute distress. HEENT: No sclera icterus. Extraocular movements grossly intact. Moist buccal mucosa. Head is atraumatic, normocephalic. ABDOMEN: Soft. Nondistended. Nontender. NEUROLOGIC: Alert and oriented. Cranial nerves II through XII grossly intact. ASSESSMENT: 1. Dysphagia 2. Sliding hiatal hernia and esophagitis noted on EGD PLAN: -Continue dysphagia chopped diet -Patient can be discharged from surgical standpoint when medically cleared Physician Breaker Machine Tender note has been reviewed by physician. Signing provider agrees with the documented findings, assessment, and plan of care. Objective - Vital Signs Vital signs: Vital Signs Temp 97.7 F 06/22/22 07:31 Pulse 110 H 06/22/22 12:42 Resp 17 06/22/22 11:18 BP 118/65 06/22/22 07:31 Pulse Ox 97 06/22/22 07:31 FiO2 Intake & Output 06/21/22 06/22/22 06/22/22 18:59 06:59 18:59 Intake Total 585 450 Output Total 2500 Balance 585 -2050 Intake: Intake, IV Titration 100 Amount Meropenem 1,000 mg In 100 Sodium Chloride 0.9% 100 ml @ 33.3 mls/hr IVPB Q8HR [facility] Rx#:[id number] Oral 485 450 Output: Urine 2500 Other: Voiding Method Toilet # Voids 3 2 - Labs CBC & Chem 7: 06/22/22 06:23 06/22/22 06:23 Labs: Abnormal Lab Results - Last 24 Hours (Table) 06/21/22 06/21/22 06/22/22 Range/Units 16:40 19:57 06:23 RBC 3.94 L (4.30-5.90) m/uL Hgb 12.0 L (13.0-17.5) gm/dL Hct 34.8 L (39.0-53.0) % Plt Count 137 L (150-450) k/uL Sodium (137-145) mmol/L Potassium (3.5-5.1) mmol/L Chloride (98-107) mmol/L Carbon Dioxide (22-30) mmol/L BUN (9-20) mg/dL Glucose (74-99) mg/dL POC Glucose (mg/dL) 220 H 176 H (70-110) mg/dL 06/22/22 Range/Units 06:23 RBC (4.30-5.90) m/uL Hgb (13.0-17.5) gm/dL Hct (39.0-53.0) % Plt Count (150-450) k/uL Sodium 134 L (137-145) mmol/L Potassium 3.4 L (3.5-5.1) mmol/L Chloride 88 L (98-107) mmol/L Carbon Dioxide 45 H* (22-30) mmol/L BUN 34 H (9-20) mg/dL Glucose 103 H (74-99) mg/dL POC Glucose (mg/dL) (70-110) mg/dL Microbiology - Last 24 Hours (Table) 06/19/22 13:29 Fungal Culture - Preliminary Bronchial Washings - Random [place] albicans 06/15/22 15:10 Blood Culture - Final Blood No Growth after 144 hours 06/15/22 15:25 Blood Culture - Final Blood No Growth after 144 hours 06/19/22 13:29 Gram Stain - Final Bronchial Washings - Random Bronchial Washings Culture - Final Escherichia coli
[2022-06-22] MEDS ORDERED: ERTAPENEM 1 GM in SODIUM CHLORIDE 0.9% 50 ML IVPB SCH (14:00)
--- NOTE | 2022-06-22 14:54 | P.PN ---
Subjective Progress Note Date: 06/22/22 On today's evaluation of 06/18/2022, seeing the patient for a follow-up. The patient was advised for an acute exacerbation suspected right lung pneumonia. The level was slightly elevated at 0.5.COVID 19 testing was negative. Influenza screen was negative. The patient was started on antibiotics and the patient is currently on a combination of bronchodilators and steroids. No nausea. No vomiting. He is less congested for now. He was having some dysphagia and he was seen by general surgery. He lost around 25-30 pounds in weight and the patient is going to undergo an EGD today. He remains on bronchodilators. He remains on steroid. Cough is still present although it has somewhat subsided. The chest x-ray report done during this current admission on 06/16/2022 showed airspace opacity bilaterally right more than left consistent with pneumonia and the patient remains on a combination of antibiotics including IV Rocephin and Zithromax Today's evaluation of 06/19/2022, seeing the patient for a follow-up. The patient is here for an acute exacerbation of bilateral pneumonia. The patient underwent EGD showed a sliding hiatal hernia. This was done for evaluation of dysphagia. On today's evaluation, the plan is to proceed with bronchoscopy and bronchial lavage. Suspect mucus plugging. Noted the patient has COPD. He is current on examination bronchodilators and steroids and antibiotics. No fever. No chills. He is doing very slow progress and improvement. His performance of functional status is full. The patient is a white cell count today's of 3.6 with a hemoglobin of 10.8 and a platelet count of 106. The patient is having also normal electrolytes, BUN is 20 with a creatinine of 0.8. The sugars today is at 139. 06/20/2022, the patient is doing slow but ongoing progress regarding his COPD and pneumonia. He underwent a bronchoscopy yesterday and copious amounts of thick purulent blister secretions were suctioned out in addition to mucous plugs. The cultures are still pending for now. The patient's overall condition is improved. Remains on examination with the Rocephin and Zithromax. His seconds at 3.3 with a hemoglobin of 10.3 and a platelet count of 128. Rest of the electrolytes are all stable. BUN is a creatinine 0.8. He remains on solumedrol 60 mg every 6 hours. 13 2021, clinically stable, still having some congested cough. Bronchoscopy was done and the bronchial lavage showing gram-negative bacillus and the final culture is still pending for now. The patient remains on IV Rocephin. The patient remains on IV Solu-Medrol. He has decided he wants to go home and do home PT. A repeat chest x-ray was done today and I will send the findings are probably slightly improved on the right. For the most part, the findings are stable and the patient continues to have some patchy infiltrates bilaterally. There is underlying COPD. Remains on bronchodilators. Blood work from today shows a blood sugar of 197. The rest of the blood work is repeated tomorrow. On today's evaluation of 06/22/2022, the patient is being seen for a follow-up. The patient is resting comfortably in bed. The bronchoscopy and bronchial lavage yielded E. coli and this was an ESBL producing organism. Based on that, the patient was finished IV Invanz. Infectious disease consultation was also obtained. Noted the patient was having persistent pneumonia bilaterally on his chest x-ray. Is resting comfortably in bed on 2 L of O2 nasal cannula. His overall condition has optimized and the patient was taken off the Cytomel and placed on a prednisone burst and taper. Objective - Vital Signs Vital signs: Vital Signs Temp 97.7 F 06/22/22 07:31 Pulse 110 H 06/22/22 12:42 Resp 17 06/22/22 11:18 BP 118/65 06/22/22 07:31 Pulse Ox 97 06/22/22 07:31 FiO2 Intake & Output 06/21/22 06/22/22 06/22/22 18:59 06:59 18:59 Intake Total 585 450 Output Total 2500 Balance 585 -2050 Intake: Intake, IV Titration 100 Amount Meropenem 1,000 mg In 100 Sodium Chloride 0.9% 100 ml @ 33.3 mls/hr IVPB Q8HR [facility] Rx#:[id number] Oral 485 450 Output: Urine 2500 Other: Voiding Method Toilet # Voids 3 2 - Exam No acute distress, oriented 3. Currently on 3 L of oxygen. No conversational dyspnea or use of accessory muscles. HEENT examination is grossly unremarkable. Neck supple. Full range of motion. No adenopathy thyromegaly or neck vein distention. Cardiovascular examination reveals regular rhythm rate. S1-S2 normal. No S3 or S4. No discernible murmur noted. Heart sounds are distant. Heart rate 88 bpm. Lungs reveal coarse expiratory rhonchi and expiratory wheezes. Breath sounds are equal. No crackles. Slight prolongation on forced maneuver. Adventitious lung sounds are more prominent on forced maneuver. Saturations are 96% Abdomen soft bowel sounds are heard. No masses or tenderness. Extremities are intact. No cyanosis clubbing or edema. Skin is without rash or lesion. Neurologic examination is brief but nonfocal. - Labs CBC & Chem 7: 06/22/22 06:23 06/22/22 06:23 Labs: Abnormal Lab Results - Last 24 Hours (Table) 06/21/22 06/21/22 06/22/22 Range/Units 16:40 19:57 06:23 RBC 3.94 L (4.30-5.90) m/uL Hgb 12.0 L (13.0-17.5) gm/dL Hct 34.8 L (39.0-53.0) % Plt Count 137 L (150-450) k/uL Sodium (137-145) mmol/L Potassium (3.5-5.1) mmol/L Chloride (98-107) mmol/L Carbon Dioxide (22-30) mmol/L BUN (9-20) mg/dL Glucose (74-99) mg/dL POC Glucose (mg/dL) 220 H 176 H (70-110) mg/dL 06/22/22 Range/Units 06:23 RBC (4.30-5.90) m/uL Hgb (13.0-17.5) gm/dL Hct (39.0-53.0) % Plt Count (150-450) k/uL Sodium 134 L (137-145) mmol/L Potassium 3.4 L (3.5-5.1) mmol/L Chloride 88 L (98-107) mmol/L Carbon Dioxide 45 H* (22-30) mmol/L BUN 34 H (9-20) mg/dL Glucose 103 H (74-99) mg/dL POC Glucose (mg/dL) (70-110) mg/dL Microbiology - Last 24 Hours (Table) 06/19/22 13:29 Fungal Culture - Preliminary Bronchial Washings - Random Eden albicans 06/15/22 15:10 Blood Culture - Final Blood No Growth after 144 hours 06/15/22 15:25 Blood Culture - Final Blood No Growth after 144 hours 06/19/22 13:29 Gram Stain - Final Bronchial Washings - Random Bronchial Washings Culture - Final Escherichia coli Assessment and Plan Plan: Acute on chronic hypoxemic respiratory failure secondary to bilateral pneumonia, community-acquired versus healthcare acquired. The patient underwent bronchoscopy and thick purulent mucous plugs were aspirated. The patient has bilateral pneumonia. Awaiting cultures. He'll be kept on the same antibiotic coverage for now. The patient had a bronchoscopy in the LAVAGE SHOWING GRAM- NEGATIVE BACILLUS. CHEST X-RAY FINDINGS ARE STABLE, PROBABLY SLIGHTLY IMPROVED., The patient completed the bronchoscopy and the lavage showed ESBL producing E. coli. The patient was started on IV Invanz. Acute exacerbation of chronic obstructive pulmonary disease. Recent admission to [facility] for similar symptoms, a computed tomography scan of the chest showed no acute abnormalities other than advanced COPD. Severe stage III COPD, with an FEV1 that is 39% of predicted. Chronic and ongoing tobacco dependence of greater than 50 years. Coronary disease. Hypertension. Hyperlipidemia. Non-Hodgkin's lymphoma, inactive. Carotid atherosclerosis with previous right carotid endarterectomy. Abdominal aortic aneurysm with previous endovascular stent grafting. History of duodenal ulcer with hemorrhage. Plan Awaiting the results of the bronchoscopy and bronchoalveolar lavage , PRELIMINARY CULTURES ARE GRAM-NEGATIVE BACILLUS and the final culture came back positive for ESBL producing E. coli and the patient will be needing IV antibiotics and has only been started on IV Invanz. The such, he'll be discharged to [facility] with IV antibiotics. His condition is stable for now. Keep same antibiotic coverage Continue the prednisone burst taper Lasix 40 mg IV 2 doses even yesterday as the patient was having excessive swelling and he responded nicely diuretics. We'll continue to follow. I
[2022-06-22 15:31] VITALS: BP 154/72; RESP 19; TEMP 98.7
--- NOTE | 2022-06-22 16:05 | P.DS ---
Providers Date of admission: 06/15/22 14:51 Expected date of discharge: 06/22/22 Attending physician: Keith Echeverria MD Consults: 06/15/22 14:51 Consult Physician Routine Consulting Provider: Neli Cano Consult Reason/Comments: dyspnea Do you want consulting provider notified?: Yes 06/16/22 16:54 Consult Physician Routine Consulting Provider: Khanh Henriquez Consult Reason/Comments: Acute on chronic dysphagia. Concern for esophageal stricture Do you want consulting provider notified?: Yes 06/21/22 15:14 Consult Physician Routine Consulting Provider: Liliana Jaimes Consult Reason/Comments: ESBL E. COLI in Sputum Do you want consulting provider notified?: Yes Primary care physician: Physician Nonstaff Hospital Course: Discharge Diagnosis: Acute exacerbation of COPD, severe stage III ESBL E. COLI Pneumonia Ongoing tobacco abuse LE edema Diabetes mellitus type II, newly discovered- A1C 6.6 Iron deficiency anemia Thrombocytopenia Hypomagnesemia, resolved Hyponatremia, resolved BRITT, resolved Non-Hodgkin lymphoma, inactive and nontreatment Dyslipidemia Hypertension Coronary artery disease Aortic dissection status post repair line GERD Hospital Course: Patient is a 77-year-old gentleman with end-stage COPD, non-Hodgkin's lymphoma in the past, and hypertension who presented to [facility] ED after being seen by Dr. Cano in the office for shortness of breath and cough. The emergency department he underwent an extensive evaluation. Initial laboratory analysis showed white blood cell count of 3.4, hemoglobin 11.7, and platelets of 99, sodium 129, BUN 43, creatinine 1.75. Chest x-ray showed increased airspace opacities on the right greater than left consistent with pneumonia. He was admitted and was started on IV antibiotics and IV steroids. Pulmonology was consulted. He had a slow continuous improvement. He was complaining of significant dysphagia and surgery was consulted. He underwent EGD on 06/18 which showed esophagitis and a sliding hiatal hernia. Sputum culture came back with normal devyn. COVID-19, and influenza were negative. Patient underwent bronchoscopy on 06/19 which showed copious amounts of sputum. Cultures can back with ESBL E. coli. Infectious disease was consulted. Midline was placed and the patient will receive 10 days of Invanz. He was doing well and was determined stable for discharge to rehab. Patient seen and examined at bedside. Breathing better and wants to go to rehab, still with lower extremity edema update over the phone. Vital signs reviewed and stable. General: nontoxic, no distress, appears at stated age Derm: warm, dry Head: atraumatic, normocephalic, symmetric Eyes: EOMI, no lid lag, anicteric sclera Mouth: no lip lesion, mucus membranes moist Cardiovascular: S1S2 reg, no murmur, positive posterior tibial pulse bilateral, Lungs: Course bs bilateral, no rhonchi, no rales , no accessory muscle use Abdominal: soft, nontender to palpation, no guarding, no appreciable organomegaly Ext: no gross muscle atrophy, 2+ edema, no contractures Neuro: CN II-XI grossly intact, no focal neuro deficits Psych: Alert, oriented, appropriate affect A total of 42 minutes of time were spent preparing this complex discharge summary. Patient was discharged on 06/22/22. Prednisone: 40 mg for 4 days, then 30 mg for 3 days, then 20 mg for 3 days and then return to home 10 mg dosing Plan - Discharge Summary Discharge Rx Participant: No New Discharge Prescriptions: New Ertapenem [INVanz] 1 gm IVPB DAILY #10 each Lactobacillus Acidoph & Bulgar [Lactinex] 1 each PO TID packet guaiFENesin [Mucinex] 600 mg PO Q12HR tab Budesonide-Formot 160-4.5 Mcg [Symbicort 160-4.5 Mcg Inhaler] 2 puff INHALATION RT-BID each predniSONE [Deltasone] 40 mg PO DAILY #30 tab Continue Simvastatin 80 mg PO HS Langlois-3/Dha/Epa/Fish Oil [Fish Oil 1,000 mg Softgel] 1 cap PO HS Pantoprazole [Protonix] 40 mg PO BID Multivitamins, Thera [Multivitamin (formulary)] 1 tab PO DAILY Loratadine [Claritin] 10 mg PO DAILY PRN PRN Reason: Allergy Symptoms Fluticasone Nasal Closplint [Flonase Nasal Closplint] 1 spray EA NOSTRIL DAILY PRN PRN Reason: Allergy Symptoms Tiotropium 2.5 Mcg/Puff [Spiriva Respimat 2.5 Mcg] 2 puff INHALATION RT-HS Tamsulosin [Flomax] 0.4 mg PO HS Albuterol Inhaler [Ventolin Hfa Inhaler] 1 - 2 puff INHALATION RT-Q4H PRN PRN Reason: Shortness Of Breath Omeprazole [PriLOSEC] 20 mg PO DAILY PRN PRN Reason: gerd Nitroglycerin Sl Tabs [Nitrostat] 0.4 mg SUBLINGUAL Q5M PRN PRN Reason: Chest Pain Aspirin EC [Ecotrin Low Dose] 81 mg PO HS lisinopriL [Zestril] 10 mg PO DAILY Metoprolol Succinate [Metoprolol Succinate ER] 25 mg PO DAILY Fluticasone Propion/Salmeterol [Fluticasone-Salmeterol 100-50] 1 puff INHALATION RT-BID Discontinued predniSONE 10 mg PO DAILY Discharge Medication List Albuterol Inhaler [Ventolin Hfa Inhaler] 1 - 2 puff INHALATION RT-Q4H PRN 06/15/22 [History] Aspirin EC [Ecotrin Low Dose] 81 mg PO HS 06/15/22 [History] Fluticasone Nasal Closplint [Flonase Nasal Closplint] 1 spray EA NOSTRIL DAILY PRN 06/15/22 [History] Fluticasone Propion/Salmeterol [Fluticasone-Salmeterol 100-50] 1 puff INHALATION RT-BID 06/15/22 [History] Loratadine [Claritin] 10 mg PO DAILY PRN 06/15/22 [History] Metoprolol Succinate [Metoprolol Succinate ER] 25 mg PO DAILY 06/15/22 [History] Multivitamins, Thera [Multivitamin (formulary)] 1 tab PO DAILY 06/15/22 [History] Nitroglycerin Sl Tabs [Nitrostat] 0.4 mg SUBLINGUAL Q5M PRN 06/15/22 [History] Langlois-3/Dha/Epa/Fish Oil [Fish Oil 1,000 mg Softgel] 1 cap PO HS 06/15/22 [History] Omeprazole [PriLOSEC] 20 mg PO DAILY PRN 06/15/22 [History] Pantoprazole [Protonix] 40 mg PO BID 06/15/22 [History] Simvastatin 80 mg PO HS 06/15/22 [History] Tamsulosin [Flomax] 0.4 mg PO HS 06/15/22 [History] Tiotropium 2.5 Mcg/Puff [Spiriva Respimat 2.5 Mcg] 2 puff INHALATION RT-HS 06/15/22 [History] lisinopriL [Zestril] 10 mg PO DAILY 06/15/22 [History] Budesonide-Formot 160-4.5 Mcg [Symbicort 160-4.5 Mcg Inhaler] 2 puff INHALATION RT-BID each 06/22/22 [Rx] Ertapenem [INVanz] 1 gm IVPB DAILY #10 each 06/22/22 [Rx] Lactobacillus Acidoph & Bulgar [Lactinex] 1 each PO TID packet 06/22/22 [Rx] guaiFENesin [Mucinex] 600 mg PO Q12HR tab 06/22/22 [Rx] predniSONE [Deltasone] 40 mg PO DAILY #30 tab 06/22/22 [Rx] Follow up Appointment(s)/Referral(s): Nonstaff,Physician [Primary Care Provider] - 1-[address] [facility] on the [place], [NON-STAFF] - As Needed Neli Cano MD [STAFF PHYSICIAN] - 07/06/22 2:00 pm Khanh Henriquez MD [STAFF PHYSICIAN] - 1 Week Activity/Diet/Wound Care/Special Instructions: Activity: as tolerated Diet: Dysphagia 3 diet Special Instructions: Once Invanz complete can remove midline MCKINLEY wraps to bilateral lower extremities when awake and moving Discharge Disposition: TRANSFER TO SNF/ECF
[2022-06-22] MEDS ORDERED: SODIUM CHLORIDE 0.65% NASAL SPRAY 44 ML BTL NASAL PRN (16:16)
--- NOTE | 2022-06-22 16:31 | P.PN ---
Subjective Progress Note Date: 06/22/22 Principal diagnosis: ESBL E. coli pneumonia Patient is 77 year old male with a past medical history significant for hypertension COPD and former presented to hospital with increasing shortness of breath patient did have a chest x-ray with bilateral opacity more on the r ight than the left in this patient status post bronchoscopy culture positive for ESBL E. coli. On today's evaluation that is 06/22/2002, the patient denies having any fever or any chills, the patient is breathing comfortably, no shortness with linezolid and denies any worsening cough or sputum production no abdominal pain or diarrhea Objective - Vital Signs Vital signs: Vital Signs Temp 97.7 F 06/22/22 07:31 Pulse 84 06/22/22 09:05 Resp 17 06/22/22 11:18 BP 118/65 06/22/22 07:31 Pulse Ox 97 06/22/22 07:31 FiO2 Intake & Output 06/21/22 06/22/22 06/22/22 18:59 06:59 18:59 Intake Total 585 450 Output Total 2500 Balance 585 -2050 Intake: Intake, IV Titration 100 Amount Meropenem 1,000 mg In 100 Sodium Chloride 0.9% 100 ml @ 33.3 mls/hr IVPB Q8HR [facility] Rx#:[id number] Oral 485 450 Output: Urine 2500 Other: Voiding Method Toilet # Voids 3 2 - Exam GENERAL DESCRIPTION: An elderly male lying in bed in no distress RESPIRATORY SYSTEM: Unlabored breathing , decreased breath sounds at bases HEART: S1 S2 regular rate and rhythm , ABDOMEN: Soft , no tenderness EXTREMITIES: No edema feet - Labs CBC & Chem 7: 06/22/22 06:23 06/22/22 06:23 Labs: Abnormal Lab Results - Last 24 Hours (Table) 06/21/22 06/21/22 06/22/22 Range/Units 16:40 19:57 06:23 RBC 3.94 L (4.30-5.90) m/uL Hgb 12.0 L (13.0-17.5) gm/dL Hct 34.8 L (39.0-53.0) % Plt Count 137 L (150-450) k/uL Sodium (137-145) mmol/L Potassium (3.5-5.1) mmol/L Chloride (98-107) mmol/L Carbon Dioxide (22-30) mmol/L BUN (9-20) mg/dL Glucose (74-99) mg/dL POC Glucose (mg/dL) 220 H 176 H (70-110) mg/dL 06/22/22 Range/Units 06:23 RBC (4.30-5.90) m/uL Hgb (13.0-17.5) gm/dL Hct (39.0-53.0) % Plt Count (150-450) k/uL Sodium 134 L (137-145) mmol/L Potassium 3.4 L (3.5-5.1) mmol/L Chloride 88 L (98-107) mmol/L Carbon Dioxide 45 H* (22-30) mmol/L BUN 34 H (9-20) mg/dL Glucose 103 H (74-99) mg/dL POC Glucose (mg/dL) (70-110) mg/dL Microbiology - Last 24 Hours (Table) 06/15/22 15:10 Blood Culture - Final Blood No Growth after 144 hours 06/15/22 15:25 Blood Culture - Final Blood No Growth after 144 hours 06/19/22 13:29 Gram Stain - Final Bronchial Washings - Random Bronchial Washings Culture - Final Escherichia coli Assessment and Plan (1) Pneumonia Current Visit: Yes Status: Acute Code(s): J18.9 - PNEUMONIA, UNSPECIFIED ORGANISM SNOMED Code(s): 315885559 Plan: 1patient presented to hospital with increasing shortness of breath and cough in this patient evidence of bilateral perihilar infiltrate more on the right side concerning for pneumonia in this patient with status post bronchoscopy with the bronchoalveolar lavage positive for ESBL E. coli possible component of pneumonia. 2patient antibiotic has been switched to Invanz 1 g daily and the plan is to finish therapy with the Invanz 1 g daily at least 10-day course of therapy. 3patient is currently waiting for midline placement for outpatient IV antibiotics. Time with Patient: Less than 30
[2022-06-22 16:37] LABS: Glucose,Whole Blood 142 mg/dL (70-110)
[2022-06-22 16:43] VITALS: PULSE 104
== END 2022-06-22 17:45 | DRG 166 ==
LOC: EC 13:52 → 4SSUR 14:51
PROVIDERS: ADMIT Internal Medicine; ATTEND Internal Medicine
PROC: 0DB18ZX Excision of Upper Esophagus, Via Natural or Artificial Opening Endoscopic, Diagnostic (ICD-10-PCS; 2022-06-18)
PROC: 0B9G8ZX Drainage of Left Upper Lung Lobe, Via Natural or Artificial Opening Endoscopic, Diagnostic (ICD-10-PCS; 2022-06-19)
PROC: 0WCQ8ZZ Extirpation of Matter from Respiratory Tract, Via Natural or Artificial Opening Endoscopic (ICD-10-PCS; principal; 2022-06-19 07:45)
PROC: 3E02340 Introduction of Influenza Vaccine into Muscle, Percutaneous Approach (ICD-10-PCS; 2022-06-21)
DX: J15.5 Pneumonia due to Escherichia coli (principal); D61.810 Antineoplastic chemotherapy induced pancytopenia; J96.21 Acute and chronic respiratory failure with hypoxia; B37.89 Other sites of candidiasis; N17.9 Acute kidney failure, unspecified; J44.1 Chronic obstructive pulmonary disease with (acute) exacerbation; E87.1 Hypo-osmolality and hyponatremia; J44.0 Chronic obstructive pulmonary disease with (acute) lower respiratory infection; C85.90 Non-Hodgkin lymphoma, unspecified, unspecified site; D69.6 Thrombocytopenia, unspecified; I10 Essential (primary) hypertension; D50.9 Iron deficiency anemia, unspecified; E11.65 Type 2 diabetes mellitus with hyperglycemia; D63.0 Anemia in neoplastic disease; J98.09 Other diseases of bronchus, not elsewhere classified; S81.812A Laceration without foreign body, left lower leg, initial encounter; I95.9 Hypotension, unspecified; I25.10 Atherosclerotic heart disease of native coronary artery without angina pectoris; E78.5 Hyperlipidemia, unspecified; Z95.828 Presence of other vascular implants and grafts; Z95.1 Presence of aortocoronary bypass graft; Z28.310 Unvaccinated for COVID-19; Z23 Encounter for immunization; F17.210 Nicotine dependence, cigarettes, uncomplicated; K44.9 Diaphragmatic hernia without obstruction or gangrene; K21.00 Gastro-esophageal reflux disease with esophagitis, without bleeding; J98.4 Other disorders of lung; R60.0 Localized edema; E83.42 Hypomagnesemia; T45.1X5A Adverse effect of antineoplastic and immunosuppressive drugs, initial encounter; R13.10 Dysphagia, unspecified; B96.20 Unspecified Escherichia coli [E. coli] as the cause of diseases classified elsewhere; T38.0X5A Adverse effect of glucocorticoids and synthetic analogues, initial encounter; Z20.822 Contact with and (suspected) exposure to COVID-19; Z87.11 Personal history of peptic ulcer disease; Z79.899 Other long term (current) drug therapy; Z86.79 Personal history of other diseases of the circulatory system; Z79.4 Long term (current) use of insulin; Z79.51 Long term (current) use of inhaled steroids; Z92.21 Personal history of antineoplastic chemotherapy; Z90.3 Acquired absence of stomach [part of]
CPT/HCPCS: 31624; 36410; 43239; 71045; 71046; 76770; 76937; 80048; 80053; 80061; 82607; 82746; 83036; 83540; 83550; 83605; 83735; 83880; 83930; 83935; 84100; 84145; 84300; 84443; 84560; 85025; 85027; 85610; 85730; 87040; 87070; 87077; 87102; 87116; 87186; 87205; 87206; 87252; 87496; 87498; 87502; 87529; 87634; 87635; 87798; 88108; 88305; 89050; 90662; 94640; 94667; 94760; 96365; 96375; 99285

== ENCOUNTER 2022-06-24 13:27 | Inpatient (IN) | payer MEDICARE, BC ==
[2022-06-24] MEDS ORDERED: methylPREDNISolone SOD SUCCI 125 MG/2 ML VIAL IV STA (13:31)
--- NOTE | 2022-06-24 13:42 | ED ---
SOB HPI - General Chief Complaint: Shortness of Breath Stated Complaint: DEIDRE Time Seen by Provider: 06/24/22 13:30 Source: patient, EMS, RN notes reviewed, old records reviewed Mode of arrival: EMS Limitations: no limitations - History of Present Illness Initial Comments: 76-year-old male discharged from this facility 2 days ago after being diagnosed with pneumonia along with a COPD he also has a history of type 2 diabetes had acute kidney injury history of non-Hodgkin's lymphoma please see the complete report for the list of maladies who presents today with complaints the onset first breath last night and into today he use his inhalers at the facility he is at without success he was brought in by EMS and given a DuoNeb and route he states is acting much improvement he does deny any chest pain however he's had chills and sweats is noted have neck slurred temperature of 99 today[address] No other current place modifying factors he was receiving a DuoNeb treatment upon arrival. MD Complaint: shortness of breath - Related Data Home Medications Medication Instructions Recorded Confirmed Albuterol Inhaler [Ventolin Hfa 1 - 2 puff INHALATION RT-Q4H PRN 06/15/22 06/15/22 Inhaler] Aspirin EC [Ecotrin Low Dose] 81 mg PO HS 06/15/22 06/15/22 Fluticasone Nasal [place] [Flonase 1 spray EA NOSTRIL DAILY PRN 06/15/22 06/15/22 Nasal [place]] Fluticasone Propion/Salmeterol 1 puff INHALATION RT-BID 06/15/22 06/15/22 [Fluticasone-Salmeterol 100-50] Loratadine [Claritin] 10 mg PO DAILY PRN 06/15/22 06/15/22 Metoprolol Succinate [Metoprolol 25 mg PO DAILY 06/15/22 06/15/22 Succinate ER] Multivitamins, Thera [Multivitamin 1 tab PO DAILY 06/15/22 06/15/22 (formulary)] Nitroglycerin Sl Tabs [Nitrostat] 0.4 mg SUBLINGUAL Q5M PRN 06/15/22 06/15/22 [place]-3/Dha/Epa/Fish Oil [Fish Oil 1 cap PO HS 06/15/22 06/15/22 1,000 mg Softgel] Omeprazole [PriLOSEC] 20 mg PO DAILY PRN 06/15/22 06/15/22 Pantoprazole [Protonix] 40 mg PO BID 06/15/22 06/15/22 Simvastatin 80 mg PO HS 06/15/22 06/15/22 Tamsulosin [Flomax] 0.4 mg PO HS 06/15/22 06/15/22 Tiotropium 2.5 Mcg/Puff [Spiriva 2 puff INHALATION RT-HS 06/15/22 06/15/22 Respimat 2.5 Mcg] lisinopriL [Zestril] 10 mg PO DAILY 06/15/22 06/15/22 Previous Rx's Medication Instructions Recorded Budesonide-Formot 160-4.5 Mcg 2 puff INHALATION RT-BID each 06/22/22 [Symbicort 160-4.5 Mcg Inhaler] Ertapenem [INVanz] 1 gm IVPB DAILY #10 each 06/22/22 Lactobacillus Acidoph & Bulgar 1 each PO TID packet 06/22/22 [Lactinex] guaiFENesin [Mucinex] 600 mg PO Q12HR tab 06/22/22 predniSONE [Deltasone] 40 mg PO DAILY #30 tab 06/22/22 Allergies Allergy/AdvReac Type Severity Reaction Status Date / Time No Known Allergies Allergy Verified 06/15/22 20:24 Review of Systems ROS Statement: Those systems with pertinent positive or pertinent negative responses have been documented in the HPI. ROS Other: All systems not noted in ROS Statement are negative. Past Medical History Past Medical History: Cancer, COPD, Hypertension Additional Past Medical History / Comment(s): non-hodgkins lymphoma, coronary arteriosclerosis, anemia History of Any Multi-Drug Resistant Organisms: C-DIFF Date of last positivie culture/infection: October 2021 MDRO Source:: stool Past Surgical History: Back Surgery, Coronary Bypass/CABG Additional Past Surgical History / Comment(s): AAA repair in 03/30 with stent placed, carotid endarterectomy, on flomax for not emptying bladder per patient Smoking Status: Current every day smoker General Exam - General Exam Comments Initial Comments: This is a well-developed well-nourished awake alert oriented 4 male Limitations: no limitations General appearance: alert, anxious, in distress Head exam: Present: atraumatic, normocephalic, normal inspection Eye exam: Present: normal appearance, PERRL, EOMI. Absent: scleral icterus, conjunctival injection, periorbital swelling ENT exam: Present: normal exam, mucous membranes moist Neck exam: Present: normal inspection, full ROM, other (No stridor JVD or bruits). Absent: tenderness, meningismus, lymphadenopathy Respiratory exam: Present: decreased breath sounds. Absent: respiratory distress, wheezes, rales, rhonchi, stridor Cardiovascular Exam: Present: regular rate, normal rhythm, normal heart sounds. Absent: systolic murmur, diastolic murmur, rubs, gallop, clicks GI/Abdominal exam: Present: soft, normal bowel sounds. Absent: distended, tenderness, guarding, rebound, rigid Extremities exam: Present: normal inspection, full ROM, normal capillary refill. Absent: tenderness, pedal edema, joint swelling, calf tenderness Back exam: Present: normal inspection Neurological exam: Present: alert, oriented X3, CN II-XII intact Psychiatric exam: Present: normal affect, normal mood Skin exam: Present: warm, dry, intact, normal color. Absent: rash Course Vital Signs 06/24/22 06/24/22 06/24/22 13:30 15:10 17:07 Temperature 98.5 F Pulse Rate 96 89 Respiratory 24 18 18 Rate Blood Pressure 106/65 O2 Sat by Pulse 99 96 96 Oximetry - Reevaluation(s) Reevaluation #1: 06/24/22 17:00 Patient has no further complaints other than still shortness of breath no chest pain reported. Reevaluation #2: 06/24/22 17:00 Ultrasound of the lower extremities ordered to rule out DVT Medical Decision Making - Medical Decision Making I did discuss findings with the patient as well as . Patient will be admitted with inpatient evaluation and treatment ultrasound pending at this time the lower extremities. - Lab Data Result diagrams: 06/24/22 14:01 06/24/22 14:01 Lab Results 06/24/22 06/24/22 06/24/22 Range/Units 14:01 14:01 14:01 WBC 5.1 (3.8-10.6) k/uL RBC 4.07 L (4.30-5.90) m/uL Hgb 12.1 L (13.0-17.5) gm/dL Hct 35.6 L (39.0-53.0) % MCV 87.4 (80.0-100.0) fL MCH 29.7 (25.0-35.0) pg MCHC 34.0 (31.0-37.0) g/dL RDW 14.2 (11.5-15.5) % Plt Count 102 L (150-450) k/uL MPV 10.2 Neutrophils % 60 % Lymphocytes % 30 % Monocytes % 7 % Eosinophils % 0 % Basophils % 0 % Neutrophils # 3.1 (1.3-7.7) k/uL Lymphocytes # 1.6 (1.0-4.8) k/uL Monocytes # 0.3 (0-1.0) k/uL Eosinophils # 0.0 (0-0.7) k/uL Basophils # 0.0 (0-0.2) k/uL PT 11.2 (9.0-12.0) sec INR 1.0 (<1.2) APTT 23.9 (22.0-30.0) sec D-Dimer 10.43 H (<0.60) mg/L FEU Sodium 128 L (137-145) mmol/L Potassium 4.1 (3.5-5.1) mmol/L Chloride 88 L (98-107) mmol/L Carbon Dioxide 36 H (22-30) mmol/L Anion Gap 4 mmol/L BUN 27 H (9-20) mg/dL Creatinine 0.88 (0.66-1.25) mg/dL Est GFR (CKD-EPI)AfAm >90 (>60 ml/min/1.73 sqM) Est GFR (CKD-EPI)NonAf 82 (>60 ml/min/1.73 sqM) Glucose 176 H (74-99) mg/dL Plasma Lactic Acid [place] (0.7-2.0) mmol/L Calcium 8.2 L (8.4-10.2) mg/dL Magnesium 1.0 L (1.6-2.3) mg/dL Total Bilirubin 0.7 (0.2-1.3) mg/dL AST 48 (17-59) U/L ALT 49 (4-49) U/L Alkaline Phosphatase 80 (38-126) U/L Troponin I (0.000-0.034) ng/mL NT-Pro-B Natriuret Pep pg/mL Total Protein 4.8 L (6.3-8.2) g/dL Albumin 2.8 L (3.5-5.0) g/dL Influenza Type A RNA (Not Detectd) Influenza Type B (PCR) (Not Detectd) 06/24/22 06/24/22 06/24/22 Range/Units 14:01 14:01 14:01 WBC (3.8-10.6) k/uL RBC (4.30-5.90) m/uL Hgb (13.0-17.5) gm/dL Hct (39.0-53.0) % MCV (80.0-100.0) fL MCH (25.0-35.0) pg MCHC (31.0-37.0) g/dL RDW (11.5-15.5) % Plt Count (150-450) k/uL MPV Neutrophils % % Lymphocytes % % Monocytes % % Eosinophils % % Basophils % % Neutrophils # (1.3-7.7) k/uL Lymphocytes # (1.0-4.8) k/uL Monocytes # (0-1.0) k/uL Eosinophils # (0-0.7) k/uL Basophils # (0-0.2) k/uL PT (9.0-12.0) sec INR (<1.2) APTT (22.0-30.0) sec D-Dimer (<0.60) mg/L FEU Sodium (137-145) mmol/L Potassium (3.5-5.1) mmol/L Chloride (98-107) mmol/L Carbon Dioxide (22-30) mmol/L Anion Gap mmol/L BUN (9-20) mg/dL Creatinine (0.66-1.25) mg/dL Est GFR (CKD-EPI)AfAm (>60 ml/min/1.73 sqM) Est GFR (CKD-EPI)NonAf (>60 ml/min/1.73 sqM) Glucose (74-99) mg/dL Plasma Lactic Acid [place] 1.3 (0.7-2.0) mmol/L Calcium (8.4-10.2) mg/dL Magnesium (1.6-2.3) mg/dL Total Bilirubin (0.2-1.3) mg/dL AST (17-59) U/L ALT (4-49) U/L Alkaline Phosphatase (38-126) U/L Troponin I 0.104 H* (0.000-0.034) ng/mL NT-Pro-B Natriuret Pep 1490 pg/mL Total Protein (6.3-8.2) g/dL Albumin (3.5-5.0) g/dL Influenza Type A RNA (Not Detectd) Influenza Type B (PCR) (Not Detectd) 06/24/22 Range/Units 14:01 WBC (3.8-10.6) k/uL RBC (4.30-5.90) m/uL Hgb (13.0-17.5) gm/dL Hct (39.0-53.0) % MCV (80.0-100.0) fL MCH (25.0-35.0) pg MCHC (31.0-37.0) g/dL RDW (11.5-15.5) % Plt Count (150-450) k/uL MPV Neutrophils % % Lymphocytes % % Monocytes % % Eosinophils % % Basophils % % Neutrophils # (1.3-7.7) k/uL Lymphocytes # (1.0-4.8) k/uL Monocytes # (0-1.0) k/uL Eosinophils # (0-0.7) k/uL Basophils # (0-0.2) k/uL PT (9.0-12.0) sec INR (<1.2) APTT (22.0-30.0) sec D-Dimer (<0.60) mg/L FEU Sodium (137-145) mmol/L Potassium (3.5-5.1) mmol/L Chloride (98-107) mmol/L Carbon Dioxide (22-30) mmol/L Anion Gap mmol/L BUN (9-20) mg/dL Creatinine (0.66-1.25) mg/dL Est GFR (CKD-EPI)AfAm (>60 ml/min/1.73 sqM) Est GFR (CKD-EPI)NonAf (>60 ml/min/1.73 sqM) Glucose (74-99) mg/dL Plasma Lactic Acid [place] (0.7-2.0) mmol/L Calcium (8.4-10.2) mg/dL Magnesium (1.6-2.3) mg/dL Total Bilirubin (0.2-1.3) mg/dL AST (17-59) U/L ALT (4-49) U/L Alkaline Phosphatase (38-126) U/L Troponin I (0.000-0.034) ng/mL NT-Pro-B Natriuret Pep pg/mL Total Protein (6.3-8.2) g/dL Albumin (3.5-5.0) g/dL Influenza Type A RNA Not Detected (Not Detectd) Influenza Type B (PCR) Not Detected (Not Detectd) - EKG Data -: EKG Interpreted by Me EKG Comments: Sinus rhythm a 79 TX interval 118 QRS duration 157 QT since QTC 47/441 red bundle-branch block pattern as well as left anterior fascicular block no definitive acute changes. No old ones for comparison - Radiology Data Radiology results: report reviewed (Management reviewed as well as report evidence of pneumonia the patient has been experiencing no evidence of PE and C AT scans recently report), image reviewed Disposition Clinical Impression: Non-STEMI (non-ST elevated myocardial infarction), Elevated d-dimer, COPD with exacerbation, Hypomagnesemia, E. coli pneumonia Disposition: ADMITTED IP TO THIS [facility] Condition: Stable Referrals: Nonstaff,Physician [Primary Care Provider] - 1-2 days Decision Date: 06/24/22 Decision Time: 17:00
[2022-06-24] MEDS ORDERED: ERTAPENEM 1 GM in SODIUM CHLORIDE 0.9% 50 ML IVPB STA (14:03)
[2022-06-24 14:07] LABS: Basophils % (A) 0 %; Eosinophils % (A) 0 %; HCT 35.6 % (39.0-53.0); HGB 12.1 gm/dL (13.0-17.5); Lymphocytes # (A) 1.6 k/uL (1.0-4.8); Lymphocytes % (A) 30 %; MCH 29.7 pg (25.0-35.0); MCV 87.4 fL (80.0-100.0); Mean Platelet Volume 10.2; Monocytes # (A) 0.3 k/uL (0-1.0); Monocytes % (A) 7 %; Neutrophils # (A) 3.1 k/uL (1.3-7.7); Neutrophils % (A) 60 %; Platelet Count 102 k/uL (150-450); RBC 4.07 m/uL (4.30-5.90); RDW 14.2 % (11.5-15.5); WBC 5.1 k/uL (3.8-10.6)
[2022-06-24 14:22] LABS: ALT 49 U/L (4-49); AST 48 U/L (17-59); African American GFR (CKD) >90 (>60 ml/min/1.73 sqM); Albumin 2.8 g/dL (3.5-5.0); Alkaline Phosphatase 80 U/L (38-126); Anion Gap 4 mmol/L; Blood Urea Nitrogen 27 mg/dL (9-20); Calcium 8.2 mg/dL (8.4-10.2); Carbon Dioxide 36 mmol/L (22-30); Chloride 88 mmol/L (98-107); Glucose 176 mg/dL (74-99); Non-African American GFR(CKD) 82 (>60 ml/min/1.73 sqM); Potassium 4.1 mmol/L (3.5-5.1); Sodium 128 mmol/L (137-145); Total Bilirubin 0.7 mg/dL (0.2-1.3); Total Protein 4.8 g/dL (6.3-8.2)
[2022-06-24 14:31] LABS: Partial Thromboplastin Time 23.9 sec (22.0-30.0); Prothrombin Time 11.2 sec (9.0-12.0)
--- NOTE | 2022-06-24 14:32 | XR ---
EXAMINATION TYPE: XR chest 2V DATE OF EXAM: 06/24/2022 2:16 PM COMPARISON: Chest radiographs from 06/21/2022. TECHNIQUE: XR chest 2V Frontal and lateral views of the chest. CLINICAL INDICATION:Male, 77 years old with history of difficulty breathing; FINDINGS: Lungs/Pleura: Similar interstitial lung markings seen in the lung bases right greater than left. Post airspace opacities are suspected There is no evidence of pleural effusion, or pneumothorax. Pulmonary vascularity: Unremarkable. Heart/mediastinum: Cardiomediastinal silhouette is unremarkable. Musculoskeletal: No acute osseous pathology. IMPRESSION: Similar examination with suspected underlying interstitial lung disease with COPD changes and suspect ed superimposed airspace disease.
--- NOTE | 2022-06-24 16:07 | CT ---
EXAMINATION TYPE: CT angio chest CT DLP: 305.7 mGycm, Automated exposure control for dose reduction was used. DATE OF EXAM: 06/24/2022 3:48 PM COMPARISON: Chest radiograph from same day. CLINICAL INDICATION:Male, 77 years old with history of PE suspected; COPD, DEIDRE. hx lymphoma TECHNIQUE/CONTRAST: CTA scan of the thorax is performed with IV Contrast, patient injected with 69 mL of Isovue 370, pulm onary embolism protocol. MIP images are created and reviewed. FINDINGS: Motion artifact limits evaluation of the lungs. Pulmonary Artery: There is no evidence for a filling defect within the pulmonary vasculature to sugge st acute pulmonary embolism. The pulmonary artery is of normal size. Lungs/Pleura: Moderate emphysema changes predominantly in the lung apices. There are scattered superi mposed airspace opacities. Trace right pleural effusion. Increased interstitial lung opacities are pr esent throughout the lungs. 4 mm right lower lobe pulmonary nodule. Airway: Large airways are patent. Heart: There is mild enlargement of the heart. There is moderate atherosclerosis of the arterial vasc ulature. Post CABG changes with atherosclerosis. Vasculature: No evidence of aortic aneurysm. Atherosclerosis of the arterial vasculature. Partially v isualized abdominal aorta stent which appears patent with some mild mural thrombus noted. Mediastinum: No gross evidence of adenopathy. Postsurgical changes mediastinum with surgical clips. Musculoskeletal: No acute osseous abnormalities, sternotomy wires are present. There is multilevel di sc degeneration changes. Soft Tissues: Increased density posterior to the nipples bilaterally consistent with gynecomastia. Lower neck: No significant findings. Upper Abdomen: Left renal cysts noted. Layering densities within the gallbladder lumen likely represe nt cholelithiasis versus biliary sludge. IMPRESSION: 1. No evidence of pulmonary embolism. 2. Emphysema and interstitial lung disease changes with suspected superimposed acute infection with s cattered airspace opacities. 3. Trace right pleural effusion. 4. 4 mm right lower lobe pulmonary nodule. Consider follow-up evaluation with CT chest lung cancer sc reening in 1 year
[2022-06-24] MEDS: MAGNESIUM SULFATE-D5W PMX 1 GM in DEXTROSE/WATER 1 100ML.BAG IVPB SCH ×2 (17:06→18:14)
[2022-06-24] MEDS ORDERED: ALBUTEROL NEBULIZED 2.5 MG/3 ML INHALATION PRN (17:15)
[2022-06-24] MEDS ORDERED: FLUTICASONE 50MCG/SPRAY NASAL 16GM EA NOSTRIL PRN (17:15)
[2022-06-24] MEDS ORDERED: NITROGLYCERIN SL TABS 0.4 MG TAB SUBLINGUAL PRN ×2 (17:15→17:18)
[2022-06-24] MEDS ORDERED: NON FORMULARY DRUG (Omeprazole 20 MG Capsule.Dr) PO PRN (17:15)
[2022-06-24] MEDS ORDERED: NALOXONE 0.4 MG/ML 1 ML VIAL IVP PRN (17:15)
[2022-06-24] MEDS ORDERED: LORATADINE 10 MG TAB PO PRN (17:15)
[2022-06-24] MEDS ORDERED: HEPARIN SODIUM 1,000 UN/ML (10ML VL) IV ONE (17:18)
[2022-06-24] MEDS ORDERED: NALOXONE 0.4 MG/ML 1 ML VIAL IV PRN (17:22)
[2022-06-24] MEDS ORDERED: DEXTROSE 50% SYRINGE 50 ML IVP PRN ×2 (17:25)
--- NOTE | 2022-06-24 17:27 | P.HPIM ---
History of Present Illness H&P Date: 06/24/22 Chief Complaint: SOB Patient is a 77-year-old male with past medical history of end-stage COPD, non- Hodgkin's lymphoma, chronic hypoxic respiratory failure on ventilator around the clock, hypertension presenting with shortness of breath. Patient was recently admitted to this hospital on 06/15/22 for shortness of breath, was found to have ESBL E. coli pneumonia. He was discharged on 06/22/22 to rehab. He claims that he never really recovered completely, but his shortness of breath was getting better. However, this morning when he woke up he noticed acutely worsening shortness of breath, which did not improve with bronchodilators. He denied any worsening cough or increased sputum production. He denies any chest pain, palpitations, lightheadedness, abdominal pain, bowel or urinary complaints. He claims that his lower extremities are less swollen compared to before. He is a former smoker, has not smoked over 2 weeks, was previously smoking about 1-2 cigarettes a day. He denies any alcohol or illicit drug use. In the ED, his vital signs were stable and he was saturating well on 4 L. His lab work was significant for magnesium of 1, sodium 128, troponin 0.104, proBNP 1490, d-dimer was elevated at 10.43. He was given methyl Pred, magnesium, ertapenem in the ED. CTA chest showed no PE, emphysema and ILD changes with suspected superimposed acute infection, trace right pleural effusion, 4 mm right lower lobe pulmonary nodule, which requires one-year follow-up. Patient seen and examined at bedside. [] Pertinent positives and negatives as discussed in HPI, a complete review of systems was performed and all other systems are negative. Vital signs reviewed General: nontoxic, no distress, appears at stated age Derm: warm, dry Head: atraumatic, normocephalic, symmetric Eyes: EOMI, no lid lag, anicteric sclera, pupils equal round reactive to light ENT: Nose and ears atraumatic Neck: No thyromegaly Mouth: no lip lesion, mucus membranes moist Cardiovascular: S1S2 reg, systolic murmur, trace edema Lungs: Rhonchorous breath sounds, no wheezing, no accessory muscle use Abdominal: soft, nontender to palpation, no guarding, no appreciable organomegaly Ext: no gross muscle atrophy, muscle strength muscle strength 5 out of 5 in all 4 extremities, no contractures Neuro: CN II-XII grossly intact, light touch intact all 4 extremities Psych: Alert, oriented, appropriate affect Assessment/Plan: Acute exacerbation of COPD Chronic hypoxic respiratory failure ESBL E. coli pneumonia Trace pleural effusion -Worsening shortness of breath -Bronchodilators, steroids -Continue ertapenem -Pulmonology consult Elevated d-dimer -CTA chest negative Elevated troponin -Continue to trend -No active chest pain -EKG pending -If patient develops chest pain, will consult cardiology Hypomagnesemia -Replete Right lower lobe pulmonary nodule -4 mm, one-year follow-up Hypertension Coronary artery disease Dyslipidemia Diabetes mellitus type 2 - SSI -Continue home medications Nicotine dependence -Counseled regarding cessation The patient is admitted with an anticipated greater than 2 midnight stay for evaluation of COPD exacerbation. CODE STATUS: Full code DVT prophylaxis: Heparin subcu Anticipated discharge date: 06/26/[address]: Rehab A total of 45 minutes was spent on the care of this complex patient more than 50% of the time was spent in counseling and care coordination. Past Medical History Past Medical History: Cancer, COPD, Hypertension Additional Past Medical History / Comment(s): non-hodgkins lymphoma, coronary arteriosclerosis, anemia History of Any Multi-Drug Resistant Organisms: C-DIFF Date of last positivie culture/infection: October 2021 MDRO Source:: stool Past Surgical History: Back Surgery, Coronary Bypass/CABG Additional Past Surgical History / Comment(s): AAA repair in 03/30 with stent placed, carotid endarterectomy, on flomax for not emptying bladder per patient Smoking Status: Current every day smoker Past Alcohol Use History: None Reported Past Drug Use History: None Reported Medications and Allergies Home Medications Medication Instructions Recorded Confirmed Type Albuterol Inhaler [Ventolin Hfa 1 - 2 puff INHALATION RT-Q4H PRN 06/15/22 06/15/22 History Inhaler] Aspirin EC [Ecotrin Low Dose] 81 mg PO HS 06/15/22 06/15/22 History Fluticasone Nasal [place] [Flonase 1 spray EA NOSTRIL DAILY PRN 06/15/22 06/15/22 History Nasal [place]] Fluticasone Propion/Salmeterol 1 puff INHALATION RT-BID 06/15/22 06/15/22 History [Fluticasone-Salmeterol 100-50] Loratadine [Claritin] 10 mg PO DAILY PRN 06/15/22 06/15/22 History Metoprolol Succinate [Metoprolol 25 mg PO DAILY 06/15/22 06/15/22 History Succinate ER] Multivitamins, Thera [Multivitamin 1 tab PO DAILY 06/15/22 06/15/22 History (formulary)] Nitroglycerin Sl Tabs [Nitrostat] 0.4 mg SUBLINGUAL Q5M PRN 06/15/22 06/15/22 History [place]-3/Dha/Epa/Fish Oil [Fish Oil 1 cap PO HS 06/15/22 06/15/22 History 1,000 mg Softgel] Omeprazole [PriLOSEC] 20 mg PO DAILY PRN 06/15/22 06/15/22 History Pantoprazole [Protonix] 40 mg PO BID 06/15/22 06/15/22 History Simvastatin 80 mg PO HS 06/15/22 06/15/22 History Tamsulosin [Flomax] 0.4 mg PO HS 06/15/22 06/15/22 History Tiotropium 2.5 Mcg/Puff [Spiriva 2 puff INHALATION RT-HS 06/15/22 06/15/22 History Respimat 2.5 Mcg] lisinopriL [Zestril] 10 mg PO DAILY 06/15/22 06/15/22 History Budesonide-Formot 160-4.5 Mcg 2 puff INHALATION RT-BID each 06/22/22 Rx [Symbicort 160-4.5 Mcg Inhaler] Ertapenem [INVanz] 1 gm IVPB DAILY #10 each 06/22/22 Rx Lactobacillus Acidoph & Bulgar 1 each PO TID packet 06/22/22 Rx [Lactinex] guaiFENesin [Mucinex] 600 mg PO Q12HR tab 06/22/22 Rx predniSONE [Deltasone] 40 mg PO DAILY #30 tab 06/22/22 Rx Allergies Allergy/AdvReac Type Severity Reaction Status Date / Time No Known Allergies Allergy Verified 06/15/22 20:24 Physical Exam Vitals: Vital Signs Temp Pulse Resp BP Pulse Ox 06/24/22 17:07 18 96 06/24/22 15:10 89 18 96 06/24/22 13:30 98.5 F 96 24 106/65 99 Intake and Output 06/24/22 06/24/22 06/24/22 06:59 14:59 22:59 Other: Weight 58.967 kg Results CBC & Chem 7: 06/24/22 14:01 06/24/22 14:01 Labs: Abnormal Lab Results - Last 24 Hours (Table) 06/24/22 06/24/22 06/24/22 Range/Units 14:01 14:01 14:01 RBC 4.07 L (4.30-5.90) m/uL Hgb 12.1 L (13.0-17.5) gm/dL Hct 35.6 L (39.0-53.0) % Plt Count 102 L (150-450) k/uL D-Dimer 10.43 H (<0.60) mg/L FEU Sodium 128 L (137-145) mmol/L Chloride 88 L (98-107) mmol/L Carbon Dioxide 36 H (22-30) mmol/L BUN 27 H (9-20) mg/dL Glucose 176 H (74-99) mg/dL Calcium 8.2 L (8.4-10.2) mg/dL Magnesium 1.0 L (1.6-2.3) mg/dL Troponin I (0.000-0.034) ng/mL Total Protein 4.8 L (6.3-8.2) g/dL Albumin 2.8 L (3.5-5.0) g/dL 06/24/22 Range/Units 14:01 RBC (4.30-5.90) m/uL Hgb (13.0-17.5) gm/dL Hct (39.0-53.0) % Plt Count (150-450) k/uL D-Dimer (<0.60) mg/L FEU Sodium (137-145) mmol/L Chloride (98-107) mmol/L Carbon Dioxide (22-30) mmol/L BUN (9-20) mg/dL Glucose (74-99) mg/dL Calcium (8.4-10.2) mg/dL Magnesium (1.6-2.3) mg/dL Troponin I 0.104 H* (0.000-0.034) ng/mL Total Protein (6.3-8.2) g/dL Albumin (3.5-5.0) g/dL
[2022-06-24] MEDS ORDERED: HEPARIN SOD,PORK IN 0.45% NACL 25,000 UNIT in 0.45% NACL 1 250ML.BAG IV SCH (17:30)
--- NOTE | 2022-06-24 17:31 | US ---
EXAMINATION TYPE: US venous doppler duplex LE DATE OF EXAM: 06/24/2022 5:22 PM COMPARISON: NONE CLINICAL HISTORY: D-dimer of 10 CT negative for PE. Elevated D-Dimer, pt states no known h/o DVT SIDE PERFORMED: Bilateral TECHNIQUE: The lower extremity deep venous system is examined utilizing real time linear array sonog claudia with graded compression, doppler sonography and color-flow sonography. VESSELS IMAGED: Common Femoral Vein Deep Femoral Vein Greater Saphenous Vein * Femoral Vein Popliteal Vein Small Saphenous Vein * Proximal Calf Veins (* superficial vessels) Right Leg: Negative for DVT Left Leg: Negative for DVT Grayscale, color doppler, spectral doppler imaging performed of the deep veins of the lower extremiti es. There is normal flow, compressibility, vascular waveforms. IMPRESSION: No evidence for deep vein thrombosis of either lower extremity.
[2022-06-24] MEDS: INSULIN ASPART (NovoLOG) 100 UNIT/ML VIAL SQ SCH ×2 (18:20→21:07)
[2022-06-24] MEDS: methylPREDNISolone SOD SUCCI 125 MG/2 ML VIAL IV SCH (19:48)
[2022-06-24] MEDS ORDERED: NON FORMULARY DRUG (Tiotropium 2.5 Mcg/Puff 10 PUFF Each) INHALATION SCH (20:00)
[2022-06-24] MEDS: IPRATROPIUM-ALBUTEROL 3 ML NEB INHALATION SCH (20:03)
[2022-06-24] MEDS: SYMBICORT 160-4.5 MCG INHALER INHALATION SCH (20:16)
[2022-06-24] MEDS ORDERED: NON FORMULARY DRUG (Omega-3/Dha/Epa/Fish Oil [Fish Oil 1,000 Mg Softgel] 1 EACH Capsule) PO SCH (21:00)
[2022-06-24] MEDS: LACTOBACILLUS ACIDOPH & BULGAR 1 EACH PACKET PO SCH (21:07)
[2022-06-24] MEDS: PANTOPRAZOLE 40 MG TABLET PO SCH (21:07)
[2022-06-24] MEDS: TAMSULOSIN 0.4 MG CAP.ER.24H PO SCH (21:07)
[2022-06-24] MEDS: ASPIRIN 81 MG PO SCH (21:07)
[2022-06-24] MEDS: guaiFENesin 600 MG TABLET.ER PO SCH (21:07)
[2022-06-24] MEDS: ATORVASTATIN 40 MG TAB PO SCH (21:07)
[2022-06-25] MEDS ORDERED: HEPARIN SODIUM,PORCINE/PF 5,000 UNIT/0.5 ML SYRINGE SQ SCH
[2022-06-25] MEDS: methylPREDNISolone SOD SUCCI 125 MG/2 ML VIAL IV SCH ×4 (00:02→17:09)
[2022-06-25 00:05] LABS: Glucose,Whole Blood 223 mg/dL (70-110)
[2022-06-25] MEDS: INSULIN ASPART (NovoLOG) 100 UNIT/ML VIAL SQ SCH ×5 (00:08→20:30)
[2022-06-25 06:19] LABS: Glucose,Whole Blood 218 mg/dL (70-110)
[2022-06-25] MEDS: SYMBICORT 160-4.5 MCG INHALER INHALATION SCH ×2 (07:04→19:39)
[2022-06-25] MEDS: IPRATROPIUM-ALBUTEROL 3 ML NEB INHALATION SCH ×4 (07:04→19:39)
[2022-06-25] MEDS: guaiFENesin 600 MG TABLET.ER PO SCH ×2 (08:50→20:29)
[2022-06-25] MEDS: METOPROLOL SUCCINATE (ER) 25 MG TAB.ER.24H PO SCH (08:50)
[2022-06-25] MEDS: PANTOPRAZOLE 40 MG TABLET PO SCH ×2 (08:50→20:29)
[2022-06-25] MEDS: LACTOBACILLUS ACIDOPH & BULGAR 1 EACH PACKET PO SCH ×3 (08:50→20:29)
[2022-06-25] MEDS: MULTIVITAMINS, THERA 1 EACH TAB PO SCH (08:50)
[2022-06-25] MEDS: lisinopriL 10 MG TAB PO SCH (08:50)
[2022-06-25] MEDS ORDERED: ASPIRIN 325 MG TAB PO SCH (09:00)
[2022-06-25] MEDS ORDERED: ERTAPENEM 1 GM VIAL IVPB SCH (09:00)
[2022-06-25] MEDS ORDERED: predniSONE 20 MG TAB PO SCH (09:00)
[2022-06-25] MEDS: ERTAPENEM 1 GM in SODIUM CHLORIDE 0.9% 50 ML IVPB SCH (09:24)
[2022-06-25] MEDS: NYSTATIN 100,000 UNIT/ML SUSP 500,000 UNIT/5 ML CUP PO SCH ×4 (09:25→20:29)
[2022-06-25 09:36] LABS: Basophils % (A) 0 %; Eosinophils % (A) 0 %; HCT 37.4 % (39.0-53.0); HGB 12.3 gm/dL (13.0-17.5); Lymphocytes # (A) 0.4 k/uL (1.0-4.8); Lymphocytes % (A) 7 %; MCH 28.9 pg (25.0-35.0); MCHC 32.7 g/dL (31.0-37.0); MCV 88.2 fL (80.0-100.0); Mean Platelet Volume 10.3; Monocytes # (A) 0.3 k/uL (0-1.0); Monocytes % (A) 5 %; Neutrophils % (A) 85 %; Platelet Count 119 k/uL (150-450); RBC 4.24 m/uL (4.30-5.90); RDW 14.1 % (11.5-15.5); WBC 5.9 k/uL (3.8-10.6)
[2022-06-25 09:40] LABS: African American GFR (CKD) >90 (>60 ml/min/1.73 sqM); Anion Gap 5 mmol/L; Blood Urea Nitrogen 27 mg/dL (9-20); Calcium 8.4 mg/dL (8.4-10.2); Carbon Dioxide 40 mmol/L (22-30); Chloride 89 mmol/L (98-107); Glucose 163 mg/dL (74-99); Magnesium 1.7 mg/dL (1.6-2.3); Non-African American GFR(CKD) 82 (>60 ml/min/1.73 sqM); Potassium 3.6 mmol/L (3.5-5.1); Sodium 134 mmol/L (137-145)
--- NOTE | 2022-06-25 10:38 | P.PN ---
Subjective Progress Note Date: 06/25/22 Principal diagnosis: Shortness of breath Hospital Course: Patient is a 77-year-old male with past medical history of end-stage COPD, non- Hodgkin's lymphoma, chronic hypoxic respiratory failure on ventilator around the clock, hypertension presenting with shortness of breath. Patient was recently admitted to this hospital on 06/15/22 for shortness of breath, was found to have ESBL E. coli pneumonia. He was discharged on 06/22/22 to rehab. . Patient being readmitted for COPD exacerbation. Subjective: Patient seen and examined at bedside. No acute events overnight. He claims that shortness of breath has improved. He denies any wheezing. Denies any chest pain, palpitations, lightheadedness, abdominal pain, urinary or bowel complaints. Pertinent positives and negatives as discussed above, a complete review of systems was performed and all other systems are negative. Vitals Signs Reviewed. General: nontoxic, no distress, appears at stated age Derm: warm, dry Head: atraumatic, normocephalic, symmetric Eyes: EOMI, no lid lag, anicteric sclera, pupils equal round reactive to light ENT: Nose and ears atraumatic Neck: No thyromegaly Mouth: no lip lesion, mucus membranes moist Cardiovascular: S1S2 reg, systolic murmur, trace edema Lungs: Diminished breath sounds at bilateral bases no wheezing, no accessory muscle use, 4 L nasal cannula Abdominal: soft, nontender to palpation, no guarding, no appreciable organomegaly Ext: no gross muscle atrophy, muscle strength muscle strength 5 out of 5 in all 4 extremities, no contractures Neuro: CN II-XII grossly intact, light touch intact all 4 extremities Psych: Alert, oriented, appropriate affect Assessment and Plan: Acute exacerbation of COPD Chronic hypoxic respiratory failure ESBL E. coli pneumonia Trace pleural effusion -Bronchodilators, steroids -Continue ertapenem -Pulmonology consult, appreciate recommendations Elevated d-dimer -CTA chest negative Elevated troponin -Flat -No active chest pain -EKG pending -If patient develops chest pain, will consult cardiology Hypomagnesemia -Resolved Right lower lobe pulmonary nodule -4 mm, one-year follow-up Hypertension Coronary artery disease Dyslipidemia Diabetes mellitus type 2 - SSI -Continue home medications Nicotine dependence -Counseled regarding cessation The patient is admitted with an anticipated greater than 2 midnight stay for evaluation of COPD exacerbation. CODE STATUS: Full code DVT prophylaxis: Heparin subcu Anticipated discharge date: 06/26/[address]: Rehab Objective - Vital Signs Vital signs: Vital Signs Temp 97.8 F 06/25/22 03:36 Pulse 74 06/25/22 07:16 Resp 16 06/25/22 03:36 BP 111/66 06/25/22 03:36 Pulse Ox 97 06/25/22 03:36 FiO2 Intake & Output 06/24/22 06/25/22 06/25/22 18:59 06:59 18:59 Intake Total 600 Output Total 200 Balance 400 Weight 58.967 kg 58.9 kg Intake: Oral 600 Output: Urine 200 Other: Voiding Method Toilet Urinal # Voids 1 - Labs CBC & Chem 7: 06/25/22 09:05 06/25/22 09:05 Labs: Abnormal Lab Results - Last 24 Hours (Table) 06/24/22 06/24/22 06/24/22 Range/Units 14:01 14:01 14:01 RBC 4.07 L (4.30-5.90) m/uL Hgb 12.1 L (13.0-17.5) gm/dL Hct 35.6 L (39.0-53.0) % Plt Count 102 L (150-450) k/uL Lymphocytes # (1.0-4.8) k/uL D-Dimer 10.43 H (<0.60) mg/L FEU Sodium 128 L (137-145) mmol/L Chloride 88 L (98-107) mmol/L Carbon Dioxide 36 H (22-30) mmol/L BUN 27 H (9-20) mg/dL Glucose 176 H (74-99) mg/dL POC Glucose (mg/dL) (70-110) mg/dL Hemoglobin A1c (0.0-6.0) % Calcium 8.2 L (8.4-10.2) mg/dL Magnesium 1.0 L (1.6-2.3) mg/dL Troponin I (0.000-0.034) ng/mL Total Protein 4.8 L (6.3-8.2) g/dL Albumin 2.8 L (3.5-5.0) g/dL 06/24/22 06/24/22 06/24/22 Range/Units 14:01 18:05 18:05 RBC (4.30-5.90) m/uL Hgb (13.0-17.5) gm/dL Hct (39.0-53.0) % Plt Count (150-450) k/uL Lymphocytes # (1.0-4.8) k/uL D-Dimer (<0.60) mg/L FEU Sodium (137-145) mmol/L Chloride (98-107) mmol/L Carbon Dioxide (22-30) mmol/L BUN (9-20) mg/dL Glucose (74-99) mg/dL POC Glucose (mg/dL) (70-110) mg/dL Hemoglobin A1c 7.0 H (0.0-6.0) % Calcium (8.4-10.2) mg/dL Magnesium (1.6-2.3) mg/dL Troponin I 0.104 H* 0.118 H* (0.000-0.034) ng/mL Total Protein (6.3-8.2) g/dL Albumin (3.5-5.0) g/dL 06/24/22 06/25/22 06/25/22 Range/Units 22:09 00:03 06:17 RBC (4.30-5.90) m/uL Hgb (13.0-17.5) gm/dL Hct (39.0-53.0) % Plt Count (150-450) k/uL Lymphocytes # (1.0-4.8) k/uL D-Dimer (<0.60) mg/L FEU Sodium (137-145) mmol/L Chloride (98-107) mmol/L Carbon Dioxide (22-30) mmol/L BUN (9-20) mg/dL Glucose (74-99) mg/dL POC Glucose (mg/dL) 223 H 218 H (70-110) mg/dL Hemoglobin A1c (0.0-6.0) % Calcium (8.4-10.2) mg/dL Magnesium (1.6-2.3) mg/dL Troponin I 0.154 H* (0.000-0.034) ng/mL Total Protein (6.3-8.2) g/dL Albumin (3.5-5.0) g/dL 06/25/22 06/25/22 Range/Units 09:05 09:05 RBC 4.24 L (4.30-5.90) m/uL Hgb 12.3 L (13.0-17.5) gm/dL Hct 37.4 L (39.0-53.0) % Plt Count 119 L (150-450) k/uL Lymphocytes # 0.4 L (1.0-4.8) k/uL D-Dimer (<0.60) mg/L FEU Sodium 134 L (137-145) mmol/L Chloride 89 L (98-107) mmol/L Carbon Dioxide 40 H (22-30) mmol/L BUN 27 H (9-20) mg/dL Glucose 163 H (74-99) mg/dL POC Glucose (mg/dL) (70-110) mg/dL Hemoglobin A1c (0.0-6.0) % Calcium (8.4-10.2) mg/dL Magnesium (1.6-2.3) mg/dL Troponin I (0.000-0.034) ng/mL Total Protein (6.3-8.2) g/dL Albumin (3.5-5.0) g/dL
[2022-06-25 11:47] LABS: Glucose,Whole Blood 261 mg/dL (70-110)
--- NOTE | 2022-06-25 15:05 | P.CNPUL ---
History of Present Illness Consult date: 06/25/22 Requesting physician: Benoit Ross Reason for consult: COPD Chief complaint: Shortness of breath History of present illness: This is a 77-year-old white male familiar to our service, patient was admitted last on 06/16/22, and he was discharged home on 06/22/22, patient came back with similar symptoms mostly symptoms of shortness of breath, some cough, and wheezing. Patient is known to have history of multiple medical problems including duodenal ulcer with GI bleed, abdominal aortic aneurysm with previous endovascular stent grafting, carotid atherosclerosis with previous right carotid endarterectomy, non-Hodgkin's lymphoma, receiving Rituxan infusions, hypertension, coronary artery disease. He also has advanced chronic obstructive pulmonary disease and follows with Dr. Cano in our office for the same. His FEV1 value is 39% of predicted. He had been maintained on Wixela, Spiriva and albuterol. CT angiogram of the chest done on this admission showed no evidence of pulmonary embolism, it did show evidence of emphysema and interstitial lung disease with scattered airspace opacities, questionable underlying infection. It also showed a 4 mm nodule in the right lower lobe. Labs on this admission were basically unremarkable including normal CBC, normal basic metabolic pr ofile, slightly elevated troponin 0.154, considering his symptoms of COPD exacerbation, this consult was initiated. Review of Systems CONSTITUTIONAL: Denies fever or chills or weight loss: HEENT: Denies sore throat. Denies headache RDIOVASCULAR: Denies chest pain, palpitations or syncopal episodes. RESPIRATORY: Positive for shortness of breath, cough, congestion no hemoptysis. GASTROINTESTINAL: Denies change in appetite, denies abdominal pain GENITOURINARY: Denies hematuria, denies infections. MUSKULOSKELETAL: Denies pain, denies swelling. INTEGUMENTARY: Denies rash, denies eczema. NEUROLOGICAL: Denies recent memory loss, no recent seizure activity. PSYCHIATRIC: Denies anxiety, denies depression. HEMATOLOGIC/LYMPHATIC: Denies anemia, denies enlarged lymph nodes. Past Medical History Past Medical History: Cancer, COPD, Hypertension Additional Past Medical History / Comment(s): non-hodgkins lymphoma, coronary arteriosclerosis, anemia History of Any Multi-Drug Resistant Organisms: C-DIFF Date of last positivie culture/infection: October 2021 MDRO Source:: stool Past Surgical History: Back Surgery, Coronary Bypass/CABG Additional Past Surgical History / Comment(s): AAA repair in 03/30 with stent placed, carotid endarterectomy, on flomax for not emptying bladder per patient, CABG in 2001 Past Anesthesia/Blood Transfusion Reactions: No Reported Reaction Past Psychological History: No Psychological Hx Reported Smoking Status: Former smoker Past Alcohol Use History: None Reported Past Drug Use History: None Reported Medications and Allergies Home Medications Medication Instructions Recorded Confirmed Type Albuterol Inhaler [Ventolin Hfa 1 - 2 puff INHALATION RT-Q4H PRN 06/15/22 History Inhaler] Aspirin EC [Ecotrin Low Dose] 81 mg PO HS@209906/15/22 06/24/22 History Fluticasone Nasal [place] [Flonase 1 spray EA NOSTRIL DAILY@0900 06/15/22 06/24/22 History Nasal [place]] Fluticasone Propion/Salmeterol 1 puff INHALATION RT-BID@09,209906/15/22 06/24/22 History [Fluticasone-Salmeterol 100-50] Loratadine [Claritin] 10 mg PO DAILY PRN 06/15/22 06/24/22 History Metoprolol Succinate [Metoprolol 25 mg PO DAILY@0900 06/15/22 06/24/22 History Succinate ER] Multivitamins, Thera [Multivitamin 1 tab PO DAILY@0900 06/15/22 06/24/22 History (formulary)] Nitroglycerin Sl Tabs [Nitrostat] 0.4 mg SUBLINGUAL Q5M PRN 06/15/22 06/24/22 History [place]-3/Dha/Epa/Fish Oil [Fish Oil 1 cap PO HS@209906/15/22 06/24/22 History 1,000 mg Softgel] Omeprazole [PriLOSEC] 20 mg PO DAILY PRN 06/15/22 06/24/22 History Pantoprazole [Protonix] 40 mg PO BID@0900,209906/15/22 06/24/22 History Simvastatin 80 mg PO HS@209906/15/22 06/24/22 History Tamsulosin [Flomax] 0.4 mg PO HS@209906/15/22 06/24/22 History Tiotropium 2.5 Mcg/Puff [Spiriva 2 puff INHALATION RT-HS@2100 06/15/22 06/24/22 History Respimat 2.5 Mcg] lisinopriL [Zestril] 10 mg PO DAILY@0900 06/15/22 06/24/22 History Ertapenem [INVanz] 1 gm IVPB DAILY #10 each 06/22/22 06/24/22 Rx Budesonide/Formoterol Fumarate 1 puff INHALATION RT-BID@0900,2100 06/24/22 History [Symbicort 160-4.5 Mcg Inhaler] Lactobacillus Acidophilus 1 cap PO TID@0600,1400,2200 06/24/22 06/24/22 History [Acidophilus Probiotic] Nystatin 100,000 Unit/ml Susp 5 ml PO 5XD 06/24/22 06/24/22 History [Mycostatin Oral Susp] guaiFENesin [Mucinex] 600 mg PO BID@0900,2100 06/24/22 06/24/22 History predniSONE 10 mg PO DIRECTED 06/24/22 06/24/22 History predniSONE See Taper PO DIRECTED 06/24/22 06/24/22 History Allergies Allergy/AdvReac Type Severity Reaction Status Date / Time No Known Allergies Allergy Verified 06/24/22 18:13 Physical Exam Vitals: Vital Signs Temp Pulse Pulse Resp BP BP Pulse Ox 06/25/22 12:00 97.9 F 63 20 103/53 97 06/25/22 11:01 78 06/25/22 10:49 76 06/25/22 08:00 97.8 F 62 20 115/60 91 L 06/25/22 07:16 74 06/25/22 07:04 70 06/25/22 03:36 97.8 F 85 16 111/66 97 06/25/22 00:00 97.6 F 82 16 100/52 97 06/24/22 21:00 97.7 F 83 16 118/67 94 L 06/24/22 20:13 76 18 06/24/22 20:06 75 18 06/24/22 19:50 98.2 F 62 16 106/61 96 06/24/22 17:07 18 96 06/24/22 15:10 89 18 96 Intake and Output 06/24/22 06/25/22 06/25/22 22:59 06:59 14:59 Intake Total 600 50 Output Total 200 Balance 400 50 Intake: Intake, IV Titration 50 Amount Ertapenem 1 gm In Sodium 50 Chloride 0.9% 50 ml @ 100 mls/hr IVPB DAILY [facility] Rx #:[id number] Oral 600 Output: Urine 200 Other: Voiding Method Toilet Toilet Urinal Urinal # Voids 1 Weight 58.967 kg 58.9 kg GENERAL EXAM: Alert, pleasant 77-year-old male patient, in no distress. HEAD: Normocephalic. EYES: Normal reaction of pupils, equal size. NOSE: Clear with pink turbinates. THROAT: No erythema or exudates. NECK: No masses, no JVD. CHEST: No chest wall deformity. LUNGS: Scattered rhonchi and wheezing on forced expiratory maneuver. CVS: S1 and S2 normal with no audible murmur, regular rhythm. ABDOMEN: No hepatosplenomegaly, normal bowel sounds, no guarding or rigidity. SKIN: No rashes CENTRAL NERVOUS SYSTEM: No focal deficits, tone is normal in all 4 extremities. EXTREMITIES: There is no peripheral edema. No clubbing, no cyanosis. Per ipheral pulses are intact. Results - Laboratory Findings CBC and BMP: 06/25/22 09:05 06/25/22 09:05 PT/INR, D-dimer PT 11.2 sec (9.0-12.0) 06/24/22 14:01 INR 1.0 (<1.2) 06/24/22 14:01 D-Dimer 10.43 mg/L FEU (<0.60) H 06/24/22 14:01 Abnormal lab findings: Abnormal Labs 06/24/22 06/24/22 06/24/22 14:01 14:01 14:01 RBC 4.07 L Hgb 12.1 L Hct 35.6 L Plt Count 102 L Lymphocytes # D-Dimer 10.43 H Sodium 128 L Chloride 88 L Carbon Dioxide 36 H BUN 27 H Glucose 176 H POC Glucose (mg/dL) Hemoglobin A1c Calcium 8.2 L Magnesium 1.0 L Troponin I Total Protein 4.8 L Albumin 2.8 L 06/24/22 06/24/22 06/24/22 14:01 18:05 18:05 RBC Hgb Hct Plt Count Lymphocytes # D-Dimer Sodium Chloride Carbon Dioxide BUN Glucose POC Glucose (mg/dL) Hemoglobin A1c 7.0 H Calcium Magnesium Troponin I 0.104 H* 0.118 H* Total Protein Albumin 06/24/22 06/25/22 06/25/22 22:09 00:03 06:17 RBC Hgb Hct Plt Count Lymphocytes # D-Dimer Sodium Chloride Carbon Dioxide BUN Glucose POC Glucose (mg/dL) 223 H 218 H Hemoglobin A1c Calcium Magnesium Troponin I 0.154 H* Total Protein Albumin 06/25/22 06/25/22 06/25/22 09:05 09:05 11:46 RBC 4.24 L Hgb 12.3 L Hct 37.4 L Plt Count 119 L Lymphocytes # 0.4 L D-Dimer Sodium 134 L Chloride 89 L Carbon Dioxide 40 H BUN 27 H Glucose 163 H POC Glucose (mg/dL) 261 H Hemoglobin A1c Calcium Magnesium Troponin I Total Protein Albumin - Diagnostic Findings CT scan - chest: image reviewed (As noted in HPI) Assessment and Plan Assessment: Acute on chronic hypoxemic respiratory failure secondary to bilateral pneumonia secondary to ESBL E. coli infection Acute exacerbation of chronic obstructive pulmonary disease secondary to above Recent admission to [facility] for similar symptoms, a computed tomography scan of the chest showed no acute abnormalities other than advanced COPD Chronic dyspnea, class III secondary to COPD. FEV1 value 39% of predicted Chronic and ongoing tobacco dependence of greater than 50 years Coronary disease Hypertension Hyperlipidemia Non-Hodgkin's lymphoma, inactive in stable and had been receiving Rituxan infusions Carotid atherosclerosis with previous right carotid endarterectomy Abdominal aortic aneurysm with previous endovascular stent grafting History of duodenal ulcer with hemorrhage Recommendation: Continue present medications/bronchodilators, antibiotics, and steroids. Titrate FiO2 accordingly Resume home meds Explained to the patient the severity of his COPD FEV1 is supposedly no more than 39%. Check pro calcitonin level We'll continue to follow. Prognosis is guarded Time with Patient: Greater than 30
[2022-06-25 16:50] LABS: Glucose,Whole Blood 219 mg/dL (70-110)
[2022-06-25 20:16] LABS: Glucose,Whole Blood 230 mg/dL (70-110)
[2022-06-25] MEDS: TAMSULOSIN 0.4 MG CAP.ER.24H PO SCH (20:29)
[2022-06-25] MEDS: ASPIRIN 81 MG PO SCH (20:29)
[2022-06-25] MEDS: ATORVASTATIN 40 MG TAB PO SCH (20:30)
[2022-06-26] MEDS: methylPREDNISolone SOD SUCCI 125 MG/2 ML VIAL IV SCH ×4 (00:32→17:02)
[2022-06-26 06:39] LABS: Glucose,Whole Blood 168 mg/dL (70-110)
[2022-06-26] MEDS: INSULIN ASPART (NovoLOG) 100 UNIT/ML VIAL SQ SCH ×4 (06:53→20:20)
[2022-06-26] MEDS: SYMBICORT 160-4.5 MCG INHALER INHALATION SCH ×2 (07:40→20:14)
[2022-06-26] MEDS: IPRATROPIUM-ALBUTEROL 3 ML NEB INHALATION SCH ×4 (07:40→20:13)
[2022-06-26] MEDS: NYSTATIN 100,000 UNIT/ML SUSP 500,000 UNIT/5 ML CUP PO SCH ×4 (09:10→21:44)
[2022-06-26] MEDS: LACTOBACILLUS ACIDOPH & BULGAR 1 EACH PACKET PO SCH ×3 (09:10→21:44)
[2022-06-26] MEDS: METOPROLOL SUCCINATE (ER) 25 MG TAB.ER.24H PO SCH (09:11)
[2022-06-26] MEDS: INSULIN DETEMIR (LEVEMIR) 100 UNIT/ML SYR SQ SCH (09:11)
[2022-06-26] MEDS: PANTOPRAZOLE 40 MG TABLET PO SCH ×2 (09:11→21:44)
[2022-06-26] MEDS: MULTIVITAMINS, THERA 1 EACH TAB PO SCH (09:11)
[2022-06-26] MEDS: lisinopriL 10 MG TAB PO SCH (09:11)
[2022-06-26] MEDS: guaiFENesin 600 MG TABLET.ER PO SCH ×2 (09:11→21:44)
[2022-06-26] MEDS: ERTAPENEM 1 GM in SODIUM CHLORIDE 0.9% 50 ML IVPB SCH (09:31)
[2022-06-26 11:43] LABS: Glucose,Whole Blood 201 mg/dL (70-110)
--- NOTE | 2022-06-26 12:40 | P.PN ---
Subjective Progress Note Date: 06/26/22 Patient seen and examined at bedside. Patient is eager to go to rehab today. However patient remains on high-dose IV steroids. Patient denies chest pain patient admits to exertional dyspnea. Patient further denies fever or chills. No changes overnight. Objective - Vital Signs Vital signs: Vital Signs Temp 97.7 F 06/26/22 11:47 Pulse 88 06/26/22 11:47 Resp 17 06/26/22 11:47 BP 117/63 06/26/22 11:47 Pulse Ox 99 06/26/22 11:47 FiO2 Intake & Output 06/25/22 06/26/22 06/26/22 18:59 06:59 18:59 Intake Total 526 50 118 Balance 526 50 118 Intake: Intake, IV Titration 50 50 Amount Ertapenem 1 gm In Sodium 50 50 Chloride 0.9% 50 ml @ 100 mls/hr IVPB DAILY [facility] Rx #:[id number] Oral 476 118 Other: Voiding Method Toilet Toilet Urinal # Voids 1 - Exam General: [non toxic], [no distress], [appears at stated age] Derm: [warm], [dry] Head: [atraumatic], [normocephalic], [symmetric] Eyes: [EOMI], [no lid lag], [anicteric sclera] Mouth: [no lip lesion], [mucus membranes moist] Cardiovascular: [S1S2 reg], [no murmur], [positive posterior tibial pulse bilateral], Lungs: [Diminished breath sounds bilaterally ], [no rhonchi, no rales] , [no accessory muscle use] Abdominal: [soft], [ nontender to palpation], [no guarding], [no appreciable organomegaly] Ext: [no gross muscle atrophy], [no edema], [no contractures] Neuro: [ CN II-XI grossly intact], [no focal neuro deficits] Psych: [Alert], [oriented], [appropriate affect] - Labs CBC & Chem 7: 06/25/22 09:05 06/25/22 09:05 Labs: Abnormal Lab Results - Last 24 Hours (Table) 06/25/22 06/25/22 06/26/22 Range/Units 16:49 20:15 06:38 POC Glucose (mg/dL) 219 H 230 H 168 H (70-110) mg/dL 06/26/22 Range/Units 11:32 POC Glucose (mg/dL) 201 H (70-110) mg/dL Microbiology - Last 24 Hours (Table) 06/24/22 15:10 Blood Culture - Preliminary Blood No Growth after 24 hours 06/24/22 13:55 Blood Culture - Preliminary Blood No Growth after 24 hours Assessment and Plan Assessment: Acute exacerbation of COPD Chronic hypoxic respiratory failure ESBL E. coli pneumonia Trace pleural effusion -Bronchodilators, steroids -Continue ertapenem -Pulmonology recs appreciated Elevated d-dimer -CTA chest negative Elevated troponin -Flat -No active chest pain -EKG pending -If patient develops chest pain, will consult cardiology Hypomagnesemia -Resolved Right lower lobe pulmonary nodule -4 mm, one-year follow-up Hypertension Coronary artery disease Dyslipidemia Diabetes mellitus type 2 - SSI -Continue home medications Nicotine dependence -Counseled regarding cessation The patient is admitted with an anticipated greater than 2 midnight stay for evaluation of COPD exacerbation. CODE STATUS: Full code DVT prophylaxis: Heparin subcu Anticipated discharge date: Discharge planning once titrated off IV steroids by pulmonary Anticipated discharge place: Rehab
--- NOTE | 2022-06-26 15:35 | P.PN ---
Subjective Progress Note Date: 06/26/22 Principal diagnosis: Acute on chronic hypoxic failure secondary to pneumonia secondary to ESBL E. coli infection This is a 77-year-old white male familiar to our service, patient was admitted last on 06/16/22, and he was discharged home on 06/22/22, patient came back with similar symptoms mostly symptoms of shortness of breath, some cough, and wheezing. Patient is known to have history of multiple medical problems including duodenal ulcer with GI bleed, abdominal aortic aneurysm with previous endovascular stent grafting, carotid atherosclerosis with previous right carotid endarterectomy, non-Hodgkin's lymphoma, receiving Rituxan infusions, hypertension, coronary artery disease. He also has advanced chronic obstructive pulmonary disease and follows with Dr. Cano in our office for the same. His FEV1 value is 39% of predicted. He had been maintained on Wixela, Spiriva and albuterol. CT angiogram of the chest done on this admission showed no evidence of pulmonary embolism, it did show evidence of emphysema and interstitial lung disease with scattered airspace opacities, questionable underlying infection. It also showed a 4 mm nodule in the right lower lobe. Labs on this admission were basically unremarkable including normal CBC, normal basic metabolic p rofile, slightly elevated troponin 0.154, considering his symptoms of COPD exacerbation, this consult was initiated. Reevaluated today on 06/26/22, patient is feeling better, he would like to be discharged back to the [facility]. Less cough and less wheezing less shortness of breath, patient stated to me that he could have his antibiotics infusions at the [facility] as he was getting them just before he was readmitted. The rest of the bronchodilators could be given as they have given presently now while inpatient. Hence I will clear the patient to be discharged back to the [facility] on the condition that the patient couldn't get his oxygen and he could get his antibiotics as recommended. Patient is on 4 L nasal cannula, O2 saturations are 99%, he is afebrile and hemodynamically stable. Again our clear the patient to be discharged if cleared by the admitting physician Objective - Vital Signs Vital signs: Vital Signs Temp 97.7 F 06/26/22 11:47 Pulse 88 06/26/22 11:47 Resp 17 06/26/22 11:47 BP 117/63 06/26/22 11:47 Pulse Ox 99 06/26/22 11:47 FiO2 Intake & Output 06/25/22 06/26/22 06/26/22 18:59 06:59 18:59 Intake Total 526 50 358 Balance 526 50 358 Intake: Intake, IV Titration 50 50 Amount Ertapenem 1 gm In Sodium 50 50 Chloride 0.9% 50 ml @ 100 mls/hr IVPB DAILY [facility] Rx #:[id number] Oral 476 358 Other: Voiding Method Toilet Toilet Urinal # Voids 1 1 - Exam Physical Exam: Revealed 77-year-old white male in no distress on 4 L nasal cannula Head: Atraumatic, normocephalic. HEENT:[Neck is supple.] [No neck masses.] [No thyromegaly.] [No JVD.] Chest: Diminished breath sounds at the bases some wheezing on forced expiratory maneuver only. Cardiac Exam: [Normal S1 and S2, no S3 gallop, no murmur.] Abdomen: [Soft, nontender, no megaly, no rebound, no guarding, normal bowel sounds.] Extremities: [No clubbing, no edema, no cyanosis.] Neurological Exam: [No focal neurologic deficit.] Alert oriented 3. Psychiatric: Normal mood affect and normal mental status examination. Skin: No rashes - Labs CBC & Chem 7: 06/25/22 09:05 06/25/22 09:05 Labs: Abnormal Lab Results - Last 24 Hours (Table) 06/25/22 06/25/22 06/26/22 Range/Units 16:49 20:15 06:38 POC Glucose (mg/dL) 219 H 230 H 168 H (70-110) mg/dL 06/26/22 Range/Units 11:32 POC Glucose (mg/dL) 201 H (70-110) mg/dL Microbiology - Last 24 Hours (Table) 06/24/22 15:10 Blood Culture - Preliminary Blood No Growth after 24 hours 06/24/22 13:55 Blood Culture - Preliminary Blood No Growth after 24 hours Assessment and Plan Assessment: Acute on chronic hypoxemic respiratory failure secondary to bilateral pneumonia secondary to ESBL E. coli infection Acute exacerbation of chronic obstructive pulmonary disease secondary to above Recent admission to [facility] for similar symptoms, a computed tomography scan of the chest showed no acute abnormalities other than advanced COPD Chronic dyspnea, class III secondary to COPD. FEV1 value 39% of predicted Chronic and ongoing tobacco dependence of greater than 50 years Coronary disease Hypertension Hyperlipidemia Non-Hodgkin's lymphoma, inactive in stable and had been receiving Rituxan infusions Carotid atherosclerosis with previous right carotid endarterectomy Abdominal aortic aneurysm with previous endovascular stent grafting History of duodenal ulcer with hemorrhage Recommendation: Continue present medications/bronchodilators, antibiotics, and steroids. We'll clear the patient to be discharged back to the [facility]. if cleared by his admitting physician however the patient needs to be continued on his antibiotics as ordered while inpatient, needs to be continued on his usual bronchodilators. And prednisone to be given 30 mg tapered over the next 3 weeks. Patient to follow up on outpatient basis with Dr. Cano. Time with Patient: Less than 30
[2022-06-26 16:53] LABS: Glucose,Whole Blood 165 mg/dL (70-110)
[2022-06-26 20:01] LABS: Glucose,Whole Blood 146 mg/dL (70-110)
[2022-06-26] MEDS: TAMSULOSIN 0.4 MG CAP.ER.24H PO SCH (21:44)
[2022-06-26] MEDS: ATORVASTATIN 40 MG TAB PO SCH (21:44)
[2022-06-26] MEDS: ASPIRIN 81 MG PO SCH (21:44)
[2022-06-27] MEDS: methylPREDNISolone SOD SUCCI 125 MG/2 ML VIAL IV SCH ×3 (00:51→13:57)
[2022-06-27 05:54] LABS: Glucose,Whole Blood 165 mg/dL (70-110)
[2022-06-27] MEDS: INSULIN ASPART (NovoLOG) 100 UNIT/ML VIAL SQ SCH ×2 (06:34→13:57)
[2022-06-27] MEDS: INSULIN DETEMIR (LEVEMIR) 100 UNIT/ML SYR SQ SCH (06:35)
[2022-06-27] MEDS: SYMBICORT 160-4.5 MCG INHALER INHALATION SCH (08:09)
[2022-06-27] MEDS: IPRATROPIUM-ALBUTEROL 3 ML NEB INHALATION SCH ×3 (08:09→15:50)
[2022-06-27 08:14] LABS: Basophils % (A) 0 %; Eosinophils % (A) 0 %; HGB 11.6 gm/dL (13.0-17.5); Lymphocytes # (A) 0.5 k/uL (1.0-4.8); Lymphocytes % (A) 6 %; MCH 30.4 pg (25.0-35.0); MCHC 34.1 g/dL (31.0-37.0); MCV 89.2 fL (80.0-100.0); Mean Platelet Volume 9.9; Monocytes # (A) 0.6 k/uL (0-1.0); Monocytes % (A) 8 %; Neutrophils # (A) 6.9 k/uL (1.3-7.7); Neutrophils % (A) 84 %; Platelet Count 119 k/uL (150-450); RBC 3.81 m/uL (4.30-5.90); RDW 13.9 % (11.5-15.5); WBC 8.2 k/uL (3.8-10.6)
[2022-06-27 08:27] LABS: ALT 42 U/L (4-49); AST 44 U/L (17-59); African American GFR (CKD) >90 (>60 ml/min/1.73 sqM); Albumin 2.9 g/dL (3.5-5.0); Alkaline Phosphatase 72 U/L (38-126); Anion Gap 5 mmol/L; Blood Urea Nitrogen 29 mg/dL (9-20); Calcium 8.3 mg/dL (8.4-10.2); Carbon Dioxide 38 mmol/L (22-30); Chloride 91 mmol/L (98-107); Glucose 113 mg/dL (74-99); Magnesium 1.5 mg/dL (1.6-2.3); Non-African American GFR(CKD) 84 (>60 ml/min/1.73 sqM); Potassium 3.6 mmol/L (3.5-5.1); Sodium 134 mmol/L (137-145); Total Bilirubin 0.6 mg/dL (0.2-1.3); Total Protein 4.8 g/dL (6.3-8.2)
[2022-06-27 08:39] VITALS: BP 125/60; RESP 18; TEMP 97.9
[2022-06-27] MEDS: guaiFENesin 600 MG TABLET.ER PO SCH (08:39)
[2022-06-27] MEDS: ERTAPENEM 1 GM in SODIUM CHLORIDE 0.9% 50 ML IVPB SCH (08:39)
[2022-06-27] MEDS: NYSTATIN 100,000 UNIT/ML SUSP 500,000 UNIT/5 ML CUP PO SCH ×2 (08:40→13:57)
[2022-06-27] MEDS: LACTOBACILLUS ACIDOPH & BULGAR 1 EACH PACKET PO SCH (08:40)
[2022-06-27] MEDS: lisinopriL 10 MG TAB PO SCH (08:40)
[2022-06-27] MEDS: METOPROLOL SUCCINATE (ER) 25 MG TAB.ER.24H PO SCH (08:40)
[2022-06-27] MEDS: PANTOPRAZOLE 40 MG TABLET PO SCH (08:40)
[2022-06-27] MEDS: MULTIVITAMINS, THERA 1 EACH TAB PO SCH (08:41)
[2022-06-27] MEDS: MAGNESIUM SULFATE-D5W PMX 1 GM in DEXTROSE/WATER 1 100ML.BAG IVPB SCH (09:53)
[2022-06-27 11:24] VITALS: PULSE 84
[2022-06-27 11:50] LABS: Glucose,Whole Blood 186 mg/dL (70-110)
--- NOTE | 2022-06-27 13:22 | P.PN ---
Subjective Progress Note Date: 06/27/22 Principal diagnosis: Acute on chronic hypoxic failure secondary to pneumonia secondary to ESBL E. coli infection This is a 77-year-old white male familiar to our service, patient was admitted last on 06/16/22, and he was discharged home on 06/22/22, patient came back with similar symptoms mostly symptoms of shortness of breath, some cough, and wheezing. Patient is known to have history of multiple medical problems including duodenal ulcer with GI bleed, abdominal aortic aneurysm with previous endovascular stent grafting, carotid atherosclerosis with previous right carotid endarterectomy, non-Hodgkin's lymphoma, receiving Rituxan infusions, hypertension, coronary artery disease. He also has advanced chronic obstructive pulmonary disease and follows with Dr. Cano in our office for the same. His FEV1 value is 39% of predicted. He had been maintained on Wixela, Spiriva and albuterol. CT angiogram of the chest done on this admission showed no evidence of pulmonary embolism, it did show evidence of emphysema and interstitial lung disease with scattered airspace opacities, questionable underlying infection. It also showed a 4 mm nodule in the right lower lobe. Labs on this admission were basically unremarkable including normal CBC, normal basic metabolic p rofile, slightly elevated troponin 0.154, considering his symptoms of COPD exacerbation, this consult was initiated. Reevaluated today on 06/26/22, patient is feeling better, he would like to be discharged back to the [facility]. Less cough and less wheezing less shortness of breath, patient stated to me that he could have his antibiotics infusions at the [facility] as he was getting them just before he was readmitted. The rest of the bronchodilators could be given as they have given presently now while inpatient. Hence I will clear the patient to be discharged back to the [facility] on the condition that the patient couldn't get his oxygen and he could get his antibiotics as recommended. Patient is on 4 L nasal cannula, O2 saturations are 99%, he is afebrile and hemodynamically stable. Again our clear the patient to be discharged if cleared by the admitting physician Reevaluated today on 06/27/22, patient continues to feel better, I cleared the patient to be discharged back to the [facility] yesterday as long as he could get his IV antibiotics/Invanz at the [facility]. Apparently for some reason the patient could not be discharged yesterday, and I'm clearing him to be discharged home today. He is feeling better breathing easier, and he was still need at least a week of IV antibiotics Objective - Vital Signs Vital signs: Vital Signs Temp 97.9 F 06/27/22 08:00 Pulse 84 06/27/22 11:24 Resp 18 06/27/22 08:00 BP 125/60 06/27/22 08:00 Pulse Ox 96 06/27/22 08:00 FiO2 Intake & Output 06/26/22 06/27/22 06/27/22 18:59 06:59 18:59 Intake Total 598 540 118 Balance 598 540 118 Intake: Oral 598 540 118 Other: Voiding Method Toilet Toilet Urinal # Voids 1 1 - Exam Physical Exam: Revealed 77-year-old white male in no distress on 4 L nasal cannula Head: Atraumatic, normocephalic. HEENT:[Neck is supple.] [No neck masses.] [No thyromegaly.] [No JVD.] Chest: Diminished breath sounds at the bases some wheezing on forced expiratory maneuver only. Cardiac Exam: [Normal S1 and S2, no S3 gallop, no murmur.] Abdomen: [Soft, nontender, no megaly, no rebound, no guarding, normal bowel sounds.] Extremities: [No clubbing, no edema, no cyanosis.] Neurological Exam: [No focal neurologic deficit.] Alert oriented 3. Psychiatric: Normal mood affect and normal mental status examination. Skin: No rashes - Labs CBC & Chem 7: 06/27/22 07:28 06/27/22 07:28 Labs: Abnormal Lab Results - Last 24 Hours (Table) 06/26/22 06/26/22 06/27/22 Range/Units 16:39 19:59 05:53 RBC (4.30-5.90) m/uL Hgb (13.0-17.5) gm/dL Hct (39.0-53.0) % Plt Count (150-450) k/uL Lymphocytes # (1.0-4.8) k/uL Sodium (137-145) mmol/L Chloride (98-107) mmol/L Carbon Dioxide (22-30) mmol/L BUN (9-20) mg/dL Glucose (74-99) mg/dL POC Glucose (mg/dL) 165 H 146 H 165 H (70-110) mg/dL Calcium (8.4-10.2) mg/dL Magnesium (1.6-2.3) mg/dL Total Protein (6.3-8.2) g/dL Albumin (3.5-5.0) g/dL 06/27/22 06/27/22 06/27/22 Range/Units 07:28 07:28 11:47 RBC 3.81 L (4.30-5.90) m/uL Hgb 11.6 L (13.0-17.5) gm/dL Hct 34.0 L (39.0-53.0) % Plt Count 119 L (150-450) k/uL Lymphocytes # 0.5 L (1.0-4.8) k/uL Sodium 134 L (137-145) mmol/L Chloride 91 L (98-107) mmol/L Carbon Dioxide 38 H (22-30) mmol/L BUN 29 H (9-20) mg/dL Glucose 113 H (74-99) mg/dL POC Glucose (mg/dL) 186 H (70-110) mg/dL Calcium 8.3 L (8.4-10.2) mg/dL Magnesium 1.5 L (1.6-2.3) mg/dL Total Protein 4.8 L (6.3-8.2) g/dL Albumin 2.9 L (3.5-5.0) g/dL Microbiology - Last 24 Hours (Table) 06/24/22 15:10 Blood Culture - Preliminary Blood No Growth after 48 hours 06/24/22 13:55 Blood Culture - Preliminary Blood No Growth after 48 hours Assessment and Plan Assessment: Acute on chronic hypoxemic respiratory failure secondary to bilateral pneumonia secondary to ESBL E. coli infection Acute exacerbation of chronic obstructive pulmonary disease secondary to above Recent admission to [facility] for similar symptoms, a computed tomography scan of the chest showed no acute abnormalities other than advanced C OPD Chronic dyspnea, class III secondary to COPD. FEV1 value 39% of predicted Chronic and ongoing tobacco dependence of greater than 50 years Coronary disease Hypertension Hyperlipidemia Non-Hodgkin's lymphoma, inactive in stable and had been receiving Rituxan infusions Carotid atherosclerosis with previous right carotid endarterectomy Abdominal aortic aneurysm with previous endovascular stent grafting History of duodenal ulcer with hemorrhage Recommendation: We'll clear the patient to be discharged back to the [facility]. Should have Invanz infused for the next one week daily at the [facility]. Should have prednisone burst and taper 30 mg tapered over the next 2 weeks Patient to continue his usual bronchodilators and DuoNeb updrafts 4 times a day and when necessary. Patient to follow up on outpatient basis with Dr. Cnao. Time with Patient: Less than 30
--- NOTE | 2022-06-27 13:22 | P.PN ---
Subjective Progress Note Date: 06/27/22 Principal diagnosis: Acute on chronic hypoxic failure secondary to pneumonia secondary to ESBL E. coli infection This is a 77-year-old white male familiar to our service, patient was admitted last on 06/16/22, and he was discharged home on 06/22/22, patient came back with similar symptoms mostly symptoms of shortness of breath, some cough, and wheezing. Patient is known to have history of multiple medical problems including duodenal ulcer with GI bleed, abdominal aortic aneurysm with previous endovascular stent grafting, carotid atherosclerosis with previous right carotid endarterectomy, non-Hodgkin's lymphoma, receiving Rituxan infusions, hypertension, coronary artery disease. He also has advanced chronic obstructive pulmonary disease and follows with Dr. Cano in our office for the same. His FEV1 value is 39% of predicted. He had been maintained on Wixela, Spiriva and albuterol. CT angiogram of the chest done on this admission showed no evidence of pulmonary embolism, it did show evidence of emphysema and interstitial lung disease with scattered airspace opacities, questionable underlying infection. It also showed a 4 mm nodule in the right lower lobe. Labs on this admission were basically unremarkable including normal CBC, normal basic metabolic p rofile, slightly elevated troponin 0.154, considering his symptoms of COPD exacerbation, this consult was initiated. Reevaluated today on 06/26/22, patient is feeling better, he would like to be discharged back to the [facility]. Less cough and less wheezing less shortness of breath, patient stated to me that he could have his antibiotics infusions at the [facility] as he was getting them just before he was readmitted. The rest of the bronchodilators could be given as they have given presently now while inpatient. Hence I will clear the patient to be discharged back to the [facility] on the condition that the patient couldn't get his oxygen and he could get his antibiotics as recommended. Patient is on 4 L nasal cannula, O2 saturations are 99%, he is afebrile and hemodynamically stable. Again our clear the patient to be discharged if cleared by the admitting physician Reevaluated today on 06/27/22, patient continues to feel better, I cleared the patient to be discharged back to the [facility] yesterday as long as he could get his IV antibiotics/Invanz at the [facility]. Apparently for some reason the patient could not be discharged yesterday, and I'm clearing him to be discharged home today. He is feeling better breathing easier, and he was still need at least a week of IV antibiotics Objective - Vital Signs Vital signs: Vital Signs Temp 97.9 F 06/27/22 08:00 Pulse 84 06/27/22 11:24 Resp 18 06/27/22 08:00 BP 125/60 06/27/22 08:00 Pulse Ox 96 06/27/22 08:00 FiO2 Intake & Output 06/26/22 06/27/22 06/27/22 18:59 06:59 18:59 Intake Total 598 540 118 Balance 598 540 118 Intake: Oral 598 540 118 Other: Voiding Method Toilet Toilet Urinal # Voids 1 1 - Exam Physical Exam: Revealed 77-year-old white male in no distress on 4 L nasal cannula Head: Atraumatic, normocephalic. HEENT:[Neck is supple.] [No neck masses.] [No thyromegaly.] [No JVD.] Chest: Diminished breath sounds at the bases some wheezing on forced expiratory maneuver only. Cardiac Exam: [Normal S1 and S2, no S3 gallop, no murmur.] Abdomen: [Soft, nontender, no megaly, no rebound, no guarding, normal bowel sounds.] Extremities: [No clubbing, no edema, no cyanosis.] Neurological Exam: [No focal neurologic deficit.] Alert oriented 3. Psychiatric: Normal mood affect and normal mental status examination. Skin: No rashes - Labs CBC & Chem 7: 06/27/22 07:28 06/27/22 07:28 Labs: Abnormal Lab Results - Last 24 Hours (Table) 06/26/22 06/26/22 06/27/22 Range/Units 16:39 19:59 05:53 RBC (4.30-5.90) m/uL Hgb (13.0-17.5) gm/dL Hct (39.0-53.0) % Plt Count (150-450) k/uL Lymphocytes # (1.0-4.8) k/uL Sodium (137-145) mmol/L Chloride (98-107) mmol/L Carbon Dioxide (22-30) mmol/L BUN (9-20) mg/dL Glucose (74-99) mg/dL POC Glucose (mg/dL) 165 H 146 H 165 H (70-110) mg/dL Calcium (8.4-10.2) mg/dL Magnesium (1.6-2.3) mg/dL Total Protein (6.3-8.2) g/dL Albumin (3.5-5.0) g/dL 06/27/22 06/27/22 06/27/22 Range/Units 07:28 07:28 11:47 RBC 3.81 L (4.30-5.90) m/uL Hgb 11.6 L (13.0-17.5) gm/dL Hct 34.0 L (39.0-53.0) % Plt Count 119 L (150-450) k/uL Lymphocytes # 0.5 L (1.0-4.8) k/uL Sodium 134 L (137-145) mmol/L Chloride 91 L (98-107) mmol/L Carbon Dioxide 38 H (22-30) mmol/L BUN 29 H (9-20) mg/dL Glucose 113 H (74-99) mg/dL POC Glucose (mg/dL) 186 H (70-110) mg/dL Calcium 8.3 L (8.4-10.2) mg/dL Magnesium 1.5 L (1.6-2.3) mg/dL Total Protein 4.8 L (6.3-8.2) g/dL Albumin 2.9 L (3.5-5.0) g/dL Microbiology - Last 24 Hours (Table) 06/24/22 15:10 Blood Culture - Preliminary Blood No Growth after 48 hours 06/24/22 13:55 Blood Culture - Preliminary Blood No Growth after 48 hours Assessment and Plan Assessment: Acute on chronic hypoxemic respiratory failure secondary to bilateral pneumonia secondary to ESBL E. coli infection Acute exacerbation of chronic obstructive pulmonary disease secondary to above Recent admission to [facility] for similar symptoms, a computed tomography scan of the chest showed no acute abnormalities other than advanced C OPD Chronic dyspnea, class III secondary to COPD. FEV1 value 39% of predicted Chronic and ongoing tobacco dependence of greater than 50 years Coronary disease Hypertension Hyperlipidemia Non-Hodgkin's lymphoma, inactive in stable and had been receiving Rituxan infusions Carotid atherosclerosis with previous right carotid endarterectomy Abdominal aortic aneurysm with previous endovascular stent grafting History of duodenal ulcer with hemorrhage Recommendation: We'll clear the patient to be discharged back to the [facility]. Should have Invanz infused for the next one week daily at the [facility]. Should have prednisone burst and taper 30 mg tapered over the next 2 weeks Patient to continue his usual bronchodilators and DuoNeb updrafts 4 times a day and when necessary. Patient to follow up on outpatient basis with Dr. Cano. Time with Patient: Less than 30
--- NOTE | 2022-06-27 13:24 | P.DS ---
Providers Date of admission: 06/24/22 17:15 Expected date of discharge: 06/27/22 Attending physician: Benoit Ross MD Consults: 06/24/22 17:23 Consult Physician Routine Consulting Provider: Neli Cano Consult Reason/Comments: ESBL pneumonia, COPD Do you want consulting provider notified?: Yes Primary care physician: Physician Nonstaff Assessment: Admitting diagnoses: Acute exacerbation of COPD Chronic hypoxic respiratory failure ESBL E. coli pneumonia Hypomagnesemia resolved Right lower lobe pulmonary nodule Hypertension Coronary artery disease Dyslipidemia Diabetes Nicotine dependence Discharge diagnoses: Acute exacerbation of COPD improving Patient is a 77-year-old male with past medical history of end-stage COPD, non- Hodgkin's lymphoma, chronic hypoxic respiratory failure on ventilator around the clock, hypertension presenting with shortness of breath. Patient was recently admitted to this hospital on 06/15/22 for shortness of breath, was found to have ESBL E. coli pneumonia. He was discharged on 06/22/22 to rehab. He claims that he never really recovered completely, but his shortness of breath was getting better. However, this morning when he woke up he noticed acutely worsening shortness of breath, which did not improve with bronchodilators. He denied any worsening cough or increased sputum production. He denies any chest pain, p alpitations, lightheadedness, abdominal pain, bowel or urinary complaints. He claims that his lower extremities are less swollen compared to before. He is a former smoker, has not smoked over 2 weeks, was previously smoking about 1-2 cigarettes a day. He denies any alcohol or illicit drug use. In the ED, his vital signs were stable and he was saturating well on 4 L. His lab work was significant for magnesium of 1, sodium 128, troponin 0.104, proBNP 1490, d-dimer was elevated at 10.43. He was given methyl Pred, magnesium, ertapenem in the ED. CTA chest showed no PE, emphysema and ILD changes with suspected superimposed acute infection, trace right pleural effusion, 4 mm right lower lobe pulmonary nodule, which requires one-year follow-up. Patient seen and examined at bedside. [] Pertinent positives and negatives as discussed in HPI, a complete review of systems was performed and all other systems are negative. Clinical course: Acute exacerbation of COPD Chronic hypoxic respiratory failure ESBL E. coli pneumonia Trace pleural effusion -Bronchodilators -Continue ertapenem -Pulmonology followed -IV steroids transitioned to oral Elevated d-dimer -CTA chest negative Elevated troponin -Flat -No active chest pain -EKG pending -If patient develops chest pain, will consult cardiology Hypomagnesemia -Resolved Right lower lobe pulmonary nodule -4 mm, one-year follow-up Hypertension Coronary artery disease Dyslipidemia Diabetes mellitus type 2 - SSI -Continue home medications Nicotine dependence -Counseled regarding cessation The patient is admitted with an anticipated greater than 2 midnight stay for evaluation of COPD exacerbation. CODE STATUS: Full code DVT prophylaxis: Heparin subcu Anticipated discharge place: Rehab Physical exam: General: [non toxic], [no distress], [appears at stated age] Derm: [warm], [dry] Head: [atraumatic], [normocephalic], [symmetric] Eyes: [EOMI], [no lid lag], [anicteric sclera] Mouth: [no lip lesion], [mucus membranes moist] Cardiovascular: [S1S2 reg], [no murmur], [positive posterior tibial pulse bilateral], Lungs: [CTA bilateral], [no rhonchi, no rales] , [no accessory muscle use] Abdominal: [soft], [ nontender to palpation], [no guarding], [no appreciable organomegaly] Ext: [no gross muscle atrophy], [no edema], [no contractures] Neuro: [ CN II-XI grossly intact], [no focal neuro deficits] Psych: [Alert], [oriented], [appropriate affect] Disposition: SNF Condition: Fair Activity: As tolerated Diet: Diabetic Follow-up with PCP within one week Follow-up with pulmonary in one week Patient Condition at Discharge: Fair Plan - Discharge Summary Discharge Rx Participant: Yes New Discharge Prescriptions: New Ertapenem [INVanz] 1 gm IVPB DAILY each guaiFENesin [Mucinex] 600 mg PO Q12HR #60 tab Albuterol Nebulized [Ventolin Nebulized] 2.5 mg INHALATION RT-Q4H PRN ml PRN Reason: Shortness Of Breath predniSONE 0 mg PO DIRECTED #64 tab Loratadine [Claritin] 10 mg PO DAILY PRN #30 tab PRN Reason: Allergy Symptoms Budesonide-Formot 160-4.5 Mcg [Symbicort 160-4.5 Mcg Inhaler] 2 puff INHALATION RT-BID 30 Days #0 each predniSONE 10 mg PO DIRECTED #64 tab Continue Simvastatin 80 mg PO HS@2100 [place]-3/Dha/Epa/Fish Oil [Fish Oil 1,000 mg Softgel] 1 cap PO HS@2100 Pantoprazole [Protonix] 40 mg PO BID@0900,2100 Multivitamins, Thera [Multivitamin (formulary)] 1 tab PO DAILY@0900 Loratadine [Claritin] 10 mg PO DAILY PRN PRN Reason: Allergy Symptoms Fluticasone Nasal [place] [Flonase Nasal [place]] 1 spray EA NOSTRIL DAILY@0900 Tiotropium 2.5 Mcg/Puff [Spiriva Respimat 2.5 Mcg] 2 puff INHALATION RT-HS@21 00 Ertapenem [INVanz] 1 gm IVPB DAILY #10 each predniSONE 10 mg PO DIRECTED #64 tab Tamsulosin [Flomax] 0.4 mg PO HS@2100 Albuterol Inhaler [Ventolin Hfa Inhaler] 1 - 2 puff INHALATION RT-Q4H PRN PRN Reason: Shortness Of Breath Omeprazole [PriLOSEC] 20 mg PO DAILY PRN PRN Reason: gerd Nitroglycerin Sl Tabs [Nitrostat] 0.4 mg SUBLINGUAL Q5M PRN PRN Reason: Chest Pain Aspirin EC [Ecotrin Low Dose] 81 mg PO HS@2100 lisinopriL [Zestril] 10 mg PO DAILY@0900 Metoprolol Succinate [Metoprolol Succinate ER] 25 mg PO DAILY@0900 Fluticasone Propion/Salmeterol [Fluticasone-Salmeterol 100-50] 1 puff INHALATION RT-BID@0900,2100 Budesonide/Formoterol Fumarate [Symbicort 160-4.5 Mcg Inhaler] 1 puff INHALATION RT-BID@0900,2100 Lactobacillus Acidophilus [Acidophilus Probiotic] 1 cap PO TID@0600,1400,2200 Nystatin 100,000 Unit/ml Susp [Mycostatin Oral Susp] 5 ml PO 5XD Discontinued guaiFENesin [Mucinex] 600 mg PO BID@0900,2100 predniSONE See Taper PO DIRECTED Discharge Medication List Albuterol Inhaler [Ventolin Hfa Inhaler] 1 - 2 puff INHALATION RT-Q4H PRN 06/15/22 [History] Aspirin EC [Ecotrin Low Dose] 81 mg PO HS@209906/15/22 [History] Fluticasone Nasal [place] [Flonase Nasal [place]] 1 spray EA NOSTRIL DAILY@89906/15/22 [History] Fluticasone Propion/Salmeterol [Fluticasone-Salmeterol 100-50] 1 puff INHALATION RT-BID@899,209906/15/22 [History] Loratadine [Claritin] 10 mg PO DAILY PRN 06/15/22 [History] Metoprolol Succinate [Metoprolol Succinate ER] 25 mg PO DAILY@89906/15/22 [History] Multivitamins, Thera [Multivitamin (formulary)] 1 tab PO DAILY@89906/15/22 [History] Nitroglycerin Sl Tabs [Nitrostat] 0.4 mg SUBLINGUAL Q5M PRN 06/15/22 [History] [place]-3/Dha/Epa/Fish Oil [Fish Oil 1,000 mg Softgel] 1 cap PO HS@209906/15/22 [History] Omeprazole [PriLOSEC] 20 mg PO DAILY PRN 06/15/22 [History] Pantoprazole [Protonix] 40 mg PO BID@899,209906/15/22 [History] Simvastatin 80 mg PO HS@209906/15/22 [History] Tamsulosin [Flomax] 0.4 mg PO HS@209906/15/22 [History] Tiotropium 2.5 Mcg/Puff [Spiriva Respimat 2.5 Mcg] 2 puff INHALATION RT-HS@209906/15/22 [History] lisinopriL [Zestril] 10 mg PO DAILY@89906/15/22 [History] Ertapenem [INVanz] 1 gm IVPB DAILY #10 each 06/22/22 [Rx] Budesonide/Formoterol Fumarate [Symbicort 160-4.5 Mcg Inhaler] 1 puff INHALATION RT-BID@00,209906/24/22 [History] Lactobacillus Acidophilus [Acidophilus Probiotic] 1 cap PO TID@0600,1400,2200 06/24/22 [History] Nystatin 100,000 Unit/ml Susp [Mycostatin Oral Susp] 5 ml PO 5XD 06/24/22 [History] Albuterol Nebulized [Ventolin Nebulized] 2.5 mg INHALATION RT-Q4H PRN ml 06/27/22 [Rx] Budesonide-Formot 160-4.5 Mcg [Symbicort 160-4.5 Mcg Inhaler] 2 puff INHALATION RT-BID 30 Days #0 each 06/27/22 [Rx] Ertapenem [INVanz] 1 gm IVPB DAILY each 06/27/22 [Rx] Loratadine [Claritin] 10 mg PO DAILY PRN #30 tab 06/27/22 [Rx] guaiFENesin [Mucinex] 600 mg PO Q12HR #60 tab 06/27/22 [Rx] predniSONE 0 mg PO DIRECTED #64 tab 06/27/22 [Rx] predniSONE 10 mg PO DIRECTED #64 tab 06/27/22 [Rx] predniSONE 10 mg PO DIRECTED #64 tab 06/27/22 [Rx] Follow up Appointment(s)/Referral(s): Nonstaff,Physician [Primary Care Provider] - 1-2 days Neli Cano MD [STAFF PHYSICIAN] - 07/06/22 2:00 pm Discharge Disposition: TRANSFER TO SNF/ECF
== END 2022-06-27 16:49 | DRG 190 ==
LOC: EC 13:27 → 3SCARD 17:15
PROVIDERS: ADMIT Student in an Organized Health Care Education/Training Program; ATTEND Student in an Organized Health Care Education/Training Program
DX: J44.1 Chronic obstructive pulmonary disease with (acute) exacerbation (principal); J15.5 Pneumonia due to Escherichia coli; J96.21 Acute and chronic respiratory failure with hypoxia; K26.4 Chronic or unspecified duodenal ulcer with hemorrhage; Z16.12 Extended spectrum beta lactamase (ESBL) resistance; C85.90 Non-Hodgkin lymphoma, unspecified, unspecified site; I25.10 Atherosclerotic heart disease of native coronary artery without angina pectoris; E11.9 Type 2 diabetes mellitus without complications; E78.5 Hyperlipidemia, unspecified; I10 Essential (primary) hypertension; J44.0 Chronic obstructive pulmonary disease with (acute) lower respiratory infection; E83.42 Hypomagnesemia; R79.89 Other specified abnormal findings of blood chemistry; R91.1 Solitary pulmonary nodule; F17.210 Nicotine dependence, cigarettes, uncomplicated; Z71.6 Tobacco abuse counseling; I65.29 Occlusion and stenosis of unspecified carotid artery; Z87.11 Personal history of peptic ulcer disease; Z79.51 Long term (current) use of inhaled steroids; Z79.899 Other long term (current) drug therapy; Z86.79 Personal history of other diseases of the circulatory system; Z95.1 Presence of aortocoronary bypass graft; Z87.19 Personal history of other diseases of the digestive system
CPT/HCPCS: 36415; 71046; 71275; 80048; 80053; 83036; 83605; 83735; 83880; 84484; 85025; 85379; 85610; 85730; 87040; 87502; 93005; 93970; 94640; 94760; 96365; 96366; 96375; 96376; 99285

== ENCOUNTER 2022-09-22 13:04 | Inpatient (IN) | payer MEDICARE, BC ==
[2022-09-22] MEDS ORDERED: methylPREDNISolone SOD SUCCI 125 MG/2 ML VIAL IV STA (13:19)
--- NOTE | 2022-09-22 13:23 | ED ---
SOB HPI - General Chief Complaint: Shortness of Breath Stated Complaint: DEIDRE Time Seen by Provider: 09/22/22 13:09 Source: patient, EMS Mode of arrival: EMS Limitations: no limitations - History of Present Illness Initial Comments: 77 year-old male patient presents for evaluation of shortness of breath. States he has been having trouble over the last three days worsening today. States he has had cough with "beige" sputum production. Reports fever at home 103 degrees F. He does have history of COPD. Did test negative for COVID at home. He denies any chest or back pain. Denies any nausea or vomiting. Denies any hematuria, dysuria, urinary frequency, urinary urgency. Does have some swelling to the bilateral lower extremities. Denies any recent travel or sick contacts. Patient denies any recent rash, abdominal pain, diarrhea, constipation, back pain, numbness, tingling, dizziness, weakness, headache, visual changes, or any other complaints. EMS did administer two albuterol breathing treatments en route. - Related Data Home Medications Medication Instructions Recorded Confirmed Albuterol Inhaler [Ventolin Hfa 1 - 2 puff INHALATION RT-Q4H PRN 06/15/22 06/24/22 Inhaler] Aspirin EC [Ecotrin Low Dose] 81 mg PO HS@2100 06/15/22 06/24/22 Fluticasone Nasal [place] [Flonase 1 spray EA NOSTRIL DAILY@0900 06/15/22 06/24/22 Nasal [place]] Fluticasone Propion/Salmeterol 1 puff INHALATION RT-BID@0900,209906/15/22 06/24/22 [Fluticasone-Salmeterol 100-50] Metoprolol Succinate [Metoprolol 25 mg PO DAILY@0900 06/15/22 06/24/22 Succinate ER] Multivitamins, Thera [Multivitamin 1 tab PO DAILY@0900 06/15/22 06/24/22 (formulary)] Nitroglycerin Sl Tabs [Nitrostat] 0.4 mg SUBLINGUAL Q5M PRN 06/15/22 06/24/22 [place]-3/Dha/Epa/Fish Oil [Fish Oil 1 cap PO HS@2100 06/15/22 06/24/22 1,000 mg Softgel] Pantoprazole [Protonix] 40 mg PO BID@0900,2100 06/15/22 06/24/22 Simvastatin 80 mg PO HS@209906/15/22 06/24/22 Tamsulosin [Flomax] 0.4 mg PO HS@209906/15/22 06/24/22 Tiotropium 2.5 Mcg/Puff [Spiriva 2 puff INHALATION RT-HS@209906/15/22 06/24/22 Respimat 2.5 Mcg] lisinopriL [Zestril] 10 mg PO DAILY@0900 06/15/22 06/24/22 Budesonide/Formoterol Fumarate 1 puff INHALATION RT-BID@0900,209906/24/22 06/24/22 [Symbicort 160-4.5 Mcg Inhaler] Lactobacillus Acidophilus 1 cap PO TID@0600,1400,2200 06/24/22 06/24/22 [Acidophilus Probiotic] Previous Rx's Medication Instructions Recorded Albuterol Nebulized [Ventolin 2.5 mg INHALATION RT-Q4H PRN ml 06/27/22 Nebulized] Budesonide-Formot 160-4.5 Mcg 2 puff INHALATION RT-BID 30 Days 06/27/22 [Symbicort 160-4.5 Mcg Inhaler] #0 each Ertapenem [INVanz] 1 gm IVPB DAILY each 06/27/22 Loratadine [Claritin] 10 mg PO DAILY PRN #30 tab 06/27/22 Nystatin 100,000 Unit/ml Susp 5 ml PO 5XD #10 06/27/22 [Mycostatin Oral Susp] guaiFENesin [Mucinex] 600 mg PO Q12HR #60 tab 06/27/22 predniSONE 10 mg PO DIRECTED #64 tab 06/27/22 Allergies Allergy/AdvReac Type Severity Reaction Status Date / Time No Known Allergies Allergy Verified 06/24/22 18:13 Review of Systems ROS Statement: Those systems with pertinent positive or pertinent negative responses have been documented in the HPI. ROS Other: All systems not noted in ROS Statement are negative. Past Medical History Past Medical History: Cancer, COPD, Hypertension Additional Past Medical History / Comment(s): non-hodgkins lymphoma, coronary arteriosclerosis, anemia History of Any Multi-Drug Resistant Organisms: ESBL Date of last positivie culture/infection: 06/19/22 E.coli ESBL MDRO Source:: Bronch Wash Past Surgical History: Back Surgery, Coronary Bypass/CABG Additional Past Surgical History / Comment(s): AAA repair in 03/30 with stent placed, carotid endarterectomy, on flomax for not emptying bladder per patient, CABG in 2001 Past Anesthesia/Blood Transfusion Reactions: No Reported Reaction Past Psychological History: No Psychological Hx Reported Smoking Status: Former smoker Past Alcohol Use History: None Reported Past Drug Use History: None Reported General Exam Limitations: no limitations General appearance: alert, in no apparent distress, other (Physical well- developed, well-nourished adult male exhibiting respiratory distress.) ENT exam: Present: normal exam, normal oropharynx, mucous membranes moist Neck exam: Present: normal inspection. Absent: tenderness, meningismus, lymphadenopathy Respiratory exam: Present: normal lung sounds bilaterally, respiratory distress, decreased breath sounds, other (Tachypnea). Absent: wheezes, rales, rhonchi, stridor Cardiovascular Exam: Present: normal rhythm, tachycardia, normal heart sounds. Absent: systolic murmur, diastolic murmur, rubs, gallop, clicks GI/Abdominal exam: Present: soft, normal bowel sounds. Absent: distended, tenderness, guarding, rebound, rigid Neurological exam: Present: alert, oriented X3, CN II-XII intact Psychiatric exam: Present: normal affect, normal mood Skin exam: Present: warm, dry, intact, normal color. Absent: rash Course Vital Signs 09/22/22 09/22/22 09/22/22 13:06 13:13 13:15 Temperature 100 F H Pulse Rate 120 H Respiratory 30 H 26 H Rate Blood Pressure 153/66 O2 Sat by Pulse 93 L 98 Oximetry 09/22/22 09/22/22 09/22/22 13:17 14:40 15:32 Temperature 102.4 F H 99.6 F Pulse Rate 103 H Respiratory 18 Rate Blood Pressure 96/46 O2 Sat by Pulse 92 L Oximetry - Reevaluation(s) Reevaluation #1: 09/22/22 15:32 Patient resting comfortably in bed. Tachypnea and labored breathing is improved. He is in no distress at this time. BP did decrease to 94/46, 1L normal saline was ordered. IV fluids maintenance at 130ml/hr. Medical Decision Making - Medical Decision Making Was pt. sent in by a medical professional or institution (Dr., PA, [employer], urgent care, hospital, or [facility]...) When possible be specific @ -Urgent care Did you speak to anyone other than the patient for history (EMS, parent, family, police, friend...)? What history was obtained from this source @ -[No] Did you review nursing and triage notes (agree or disagree)? Why? @ -[I reviewed and agree with nursing and triage notes] Were old charts reviewed (outside hosp., previous admission, EMS record, old EKG, old radiological studies, urgent care reports/EKG's, [facility] records)? Report findings @ -Hospital admission from June 2022 2. Admitted for COPD extracted patient with pneumonia. Received IV antibiotics. Differential Diagnosis (chest pain, altered mental status, abdominal pain women, abdominal pain men, vaginal bleeding, weakness, fever, dyspnea, syncope, headache, dizziness, GI bleed, back pain, seizure, CVA, palpatations, mental health)? @ -Differential Dyspnea: Coronary syndrome, arrhythmia, tamponade, asthma, COPD, pulmonary embolism, pneumonia, pneumothorax, pulmonary effusion, anaphylaxis, diabetic ketoacidosis, flailed chest, pulmonary contusion, diaphragmatic rupture, anemia, neuromuscular, this is not meant to be an all-inclusive list. EKG interpreted by me (3pts min.). @ -[As above] X-rays interpreted by me (1pt min.). @ -As above CT interpreted by me (1pt min.). @ -[None done] U/S interpreted by me (1pt. min.). @ -[None done] What testing was considered but not performed or refused? (CT, X-rays, U/S, labs)? Why? @ -[None] What meds were considered but not given or refused? Why? @ -Considered vancomycin due to hospitalization and IV antibiotic use in the last 90 days. Discussed with admitting, ID consulted. Did you discuss the management of the patient with other professionals (professionals i.e. PABLO Gooden, [employer], lab, RT, psych nurse, social media project manager, avionics shop supervisor, teacher, flight communications officer, manager case)? Give summary @ -My attending Dr. Mcfarland. Admitting physician Dr. Chauhan. Was smoking cessation discussed for >3mins.? @ -[No] Was critical care preformed (if so, how long)? @ -[No] Were there social determinants of health that impacted care today? How? (Homelessness, low income, unemployed, alcoholism, drug addiction, transportation, low edu. Level, literacy, decrease access to med. care, snf, rehab)? @ -[No] Was there de-escalation of care discussed even if they declined (Discuss DNR or withdrawal of care, Hospice)? DNR status @ -[No] What co-morbidities impacted this encounter? (DM, HTN, Smoking, COPD, CAD, Cancer, CVA, ARF, Chemo, Hep., AIDS, mental health diagnosis, sleep apnea, morbid obesity)? @ -COPD, Pulmonary Fibrosis. Was patient admitted / discharged? Hospital course, mention meds given and route, prescriptions, significant lab abnormalities, going to OR and other pertinent info. @ -77-year-old male patient presents the emergency department via EMS for respiratory distress, cough, fever. Physical examination did reveal diminished lung sounds bilaterally, tachypnea, abdominal accessory muscle use. Labs are drawn, IV initiated, he is given 2 albuterol breathing treatments prior to arrival. He is given one dose of Solu-Medrol 125 mg. Tylenol 1000 mg for fever. Labs reviewed and did reveal white blood cell count of 5.5, lactic acid was normal. Did exhibit acute kidney injury with creatinine at 1.37. Magnesium is low 1.4. Troponin elevated 0.078. This could be troponin leak from kidneys will trend. Patient denied any chest pain, tightness, nausea, or vomiting. T ested negative for influenza, RSV, and Covid. Chest x-ray did reveal left-sided pneumonia. IV antibiotics were initiated including azithromycin and cefepime. Did start probiotic due to history of C. diff. Magnesium replaced orally. Patient is agreeable to admission. Undiagnosed new problem with uncertain prognosis? @ -[No] Drug Therapy requiring intensive monitoring for toxicity (Heparin, Nitro, Insulin, Cardizem)? @ -[No] Were any procedures done? @ -[No] Diagnosis/symptom? @ -Left lung pneumonia; Hypomagnesemia; Acute Kidney Injury; SIRS Acute, or Chronic, or Acute on Chronic? @ -Acute Uncomplicated (without systemic symptoms) or Complicated (systemic symptoms)? @ -Complicated Side effects of treatment? @ -[No] Exacerbation, Progression, or Severe Exacerbation? @ -[No] Poses a threat to life or bodily function? How? (Chest pain, USA, VT, pneumonia, PE, COPD, DKA, ARF, appy, cholecystitis, CVA, Diverticulitis, Homicidal, Suicidal, threat to staff... and all critical care pts) @ -Yes, pneumonia, history of respiratory failure, BRITT. - Lab Data Result diagrams: 09/22/22 13:27 09/22/22 13:27 Lab Results 09/22/22 09/22/22 09/22/22 Range/Units 13:27 13: 13: WBC 5.5 (3.8-10.6) k/uL RBC 3.98 L (4.30-5.90) m/uL Hgb 12.1 L (13.0-17.5) gm/dL Hct 35.7 L (39.0-53.0) % MCV 89.7 (80.0-100.0) fL MCH 30.5 (25.0-35.0) pg MCHC 33.9 (31.0-37.0) g/dL RDW 13.3 (11.5-15.5) % Plt Count 141 L (150-450) k/uL MPV 8.8 Neutrophils % (Manual) 17 % Band Neuts % (Manual) 4 % Lymphocytes % (Manual) 65 % Monocytes % (Manual) 13 % Eosinophils % (Manual) 1 % Neutrophils # (Manual) 1.10 L (1.3-7.7) k/uL Lymphocytes # (Manual) 3.58 (1.0-4.8) k/uL Monocytes # (Manual) 0.72 (0-1.0) k/uL Eosinophils # (Manual) 0.06 (0-0.7) k/uL Nucleated RBCs 0 (0-0) /100 WBC Manual Slide Review Performed Reactive Lymphocytes Present RBC Morphology Normal PT 10.0 (9.0-12.0) sec INR 0.9 (<1.2) APTT 22.9 (22.0-30.0) sec Sodium 134 L (137-145) mmol/L Potassium 4.3 (3.5-5.1) mmol/L Chloride 100 (98-107) mmol/L Carbon Dioxide 26 (22-30) mmol/L Anion Gap 8 mmol/L BUN 29 H (9-20) mg/dL Creatinine 1.37 H (0.66-1.25) mg/dL Est GFR (CKD-EPI)AfAm 56 (>60 ml/min/1.73 sqM) Est GFR (CKD-EPI)NonAf 49 (>60 ml/min/1.73 sqM) Glucose 119 H (74-99) mg/dL Plasma Lactic Acid [place] (0.7-2.0) mmol/L Calcium 8.8 (8.4-10.2) mg/dL Magnesium 1.4 L (1.6-2.3) mg/dL Total Bilirubin 1.2 (0.2-1.3) mg/dL AST 29 (17-59) U/L ALT 25 (4-49) U/L Alkaline Phosphatase 57 (38-126) U/L Troponin I (0.000-0.034) ng/mL Total Protein 6.3 (6.3-8.2) g/dL Albumin 3.8 (3.5-5.0) g/dL Influenza Type A (PCR) (Not Detectd) Influenza Type B (PCR) (Not Detectd) RSV (PCR) (Not Detectd) SARS-CoV-2 (PCR) (Not Detectd) 09/22/22 09/22/22 09/22/22 Range/Units 13:27 13:27 13:27 WBC (3.8-10.6) k/uL RBC (4.30-5.90) m/uL Hgb (13.0-17.5) gm/dL Hct (39.0-53.0) % MCV (80.0-100.0) fL MCH (25.0-35.0) pg MCHC (31.0-37.0) g/dL RDW (11.5-15.5) % Plt Count (150-450) k/uL MPV Neutrophils % (Manual) % Band Neuts % (Manual) % Lymphocytes % (Manual) % Monocytes % (Manual) % Eosinophils % (Manual) % Neutrophils # (Manual) (1.3-7.7) k/uL Lymphocytes # (Manual) (1.0-4.8) k/uL Monocytes # (Manual) (0-1.0) k/uL Eosinophils # (Manual) (0-0.7) k/uL Nucleated RBCs (0-0) /100 WBC Manual Slide Review Reactive Lymphocytes RBC Morphology PT (9.0-12.0) sec INR (<1.2) APTT (22.0-30.0) sec Sodium (137-145) mmol/L Potassium (3.5-5.1) mmol/L Chloride (98-107) mmol/L Carbon Dioxide (22-30) mmol/L Anion Gap mmol/L BUN (9-20) mg/dL Creatinine (0.66-1.25) mg/dL Est GFR (CKD-EPI)AfAm (>60 ml/min/1.73 sqM) Est GFR (CKD-EPI)NonAf (>60 ml/min/1.73 sqM) Glucose (74-99) mg/dL Plasma Lactic Acid [place] 2.0 (0.7-2.0) mmol/L Calcium (8.4-10.2) mg/dL Magnesium (1.6-2.3) mg/dL Total Bilirubin (0.2-1.3) mg/dL AST (17-59) U/L ALT (4-49) U/L Alkaline Phosphatase (38-126) U/L Troponin I 0.078 H* (0.000-0.034) ng/mL Total Protein (6.3-8.2) g/dL Albumin (3.5-5.0) g/dL Influenza Type A (PCR) Not Detected (Not Detectd) Influenza Type B (PCR) Not Detected (Not Detectd) RSV (PCR) Not Detected (Not Detectd) SARS-CoV-2 (PCR) Not Detected (Not Detectd) - EKG Data -: EKG Interpreted by [facility] EKG Comments: EKG obtained at 1311 shows sinus tachycardia with occasional supraventricular premature complexes. There is a right bundle branch block and a left anterior fascicular block. Ventricular rate is 123, SC interval 121, QRS duration 138, QT 334, QTC 407. - Radiology Data Radiology results: report reviewed, image reviewed Two-view x-ray of the chest is obtained. Report was reviewed in its entirety. Impression by Dr. Al shows new left lung airspace opacities concerning for pneumonia superimposed interstitial fibrotic lung disease also present. Disposition Clinical Impression: Pneumonia involving left lung, Hypomagnesemia, Acute kidney injury Disposition: ADMITTED IP TO THIS HOSP Condition: Serious Referrals: Nonstaff,Physician [Primary Care Provider] - 1-2 days Decision to Admit Reason: Admit from EC Decision Date: 09/22/22 Decision Time: 15:43
[2022-09-22] MEDS ORDERED: ACETAMINOPHEN TAB 500 MG TAB PO STA (13:31)
--- NOTE | 2022-09-22 13:32 | XR ---
EXAMINATION TYPE: XR chest 2V DATE OF EXAM: 09/22/2022 1:27 PM COMPARISON: Chest radiographs from 06/24/2022, CT 06/24/2022. TECHNIQUE: XR chest 2V Frontal and lateral views of the chest. CLINICAL INDICATION:Male, 77 years old with history of difficulty breathing; FINDINGS: Lungs/Pleura: New left middle lung airspace opacities. No evidence of pneumothorax or pleural effusio n. Superimposed chronic interstitial lung changes are present throughout the exam Pulmonary vascularity: Unremarkable. Heart/mediastinum: Cardiomediastinal silhouette is unremarkable. Musculoskeletal: No acute osseous pathology. IMPRESSION: New left lung airspace opacities concerning for pneumonia superimposed interstitial fibrotic lung dis ease also present.
[2022-09-22 13:46] LABS: HCT 35.7 % (39.0-53.0); HGB 12.1 gm/dL (13.0-17.5); MCH 30.5 pg (25.0-35.0); MCHC 33.9 g/dL (31.0-37.0); MCV 89.7 fL (80.0-100.0); Mean Platelet Volume 8.8; Platelet Count 141 k/uL (150-450); RBC 3.98 m/uL (4.30-5.90); RDW 13.3 % (11.5-15.5); WBC 5.5 k/uL (3.8-10.6)
[2022-09-22] MEDS ORDERED: CEFEPIME 2 GM in SODIUM CHLORIDE 0.9% 100 ML IVPB STA (13:49)
[2022-09-22] MEDS ORDERED: VANCOMYCIN IV PER PHARMACY 1 EACH MISC MISCELLANE PRN (13:49)
[2022-09-22] MEDS ORDERED: AZITHROMYCIN 500 MG in SODIUM CHLORIDE 0.9% 250 ML IVPB STA (13:49)
[2022-09-22] MEDS ORDERED: VANCOMYCIN 1,250 MG in SODIUM CHLORIDE 0.9% 250 ML IVPB STA (13:55)
[2022-09-22 14:00] LABS: INR 0.9 (<1.2); Partial Thromboplastin Time 22.9 sec (22.0-30.0)
[2022-09-22 14:03] LABS: Albumin 3.8 g/dL (3.5-5.0); Calcium 8.8 mg/dL (8.4-10.2); Magnesium 1.4 mg/dL (1.6-2.3); Potassium 4.3 mmol/L (3.5-5.1); Total Bilirubin 1.2 mg/dL (0.2-1.3); Total Protein 6.3 g/dL (6.3-8.2)
[2022-09-22] MEDS ORDERED: MAGNESIUM OXIDE 400 MG TAB PO STA (14:04)
[2022-09-22 14:52] LABS: Band Neutrophils % 4 %; Eosinophils # (M) 0.06 k/uL (0-0.7); Lymphocytes # (M) 3.58 k/uL (1.0-4.8); Monocytes # (M) 0.72 k/uL (0-1.0); Neutrophils % (M) 17 %; Nucleated Red Blood Cells 0 /100 WBC (0-0); Total Cells Counted 100
[2022-09-22 14:53] LABS: RBC Morphology Normal; Reactive Lymphocytes Present
[2022-09-22] MEDS ORDERED: SODIUM CHLORIDE 0.9% 1,000 ML IV ONE (15:27)
[2022-09-22] MEDS ORDERED: LACTOBACILLUS ACIDOPH & BULGAR 1 EACH PACKET PO STA (15:30)
[2022-09-22] MEDS ORDERED: NALOXONE 0.4 MG/ML 1 ML VIAL IV PRN (15:31)
[2022-09-22] MEDS ORDERED: ACETAMINOPHEN TAB 325 MG TAB PO PRN (15:31)
[2022-09-22] MEDS: SODIUM CHLORIDE 0.9% 1,000 ML IV SCH ×2 (16:13→23:05)
--- NOTE | 2022-09-22 16:37 | P.HPIM ---
History of Present Illness H&P Date: 09/22/22 History of present illness; patient is a 77-year-old gentleman with past medical history significant for COPD who presented to the ER because of worsening shortness of breath for the last few days. Patient was complaining of shortness of breath on exertion. Complaining of productive cough, phlegm was brownish in color. This morning patient had fever of 103. Denied any chest pain. Denies any nausea, vomiting or abdominal pain. Patient was worked up in the ER, initial white count was 5.5, hemoglobin 12.1, sodium of 134, potassium 4.3, BUN 29, creatinine 1.37. Chest x-ray showed new left lung airspace opacity concerning for pneumonia. Patient was started on IV antibiotics and admitted to hospitalist service REVIEW OF SYSTEMS: CONSTITUTIONAL: As mentioned in HPI HEENT: No recent visual problems or hearing problems. Denied any sore throat. CARDIOVASCULAR: No chest pain, orthopnea, PND, no palpitations, no syncope. PULMONARY: As mentioned in HPI GASTROINTESTINAL: No diarrhea, no nausea, no vomiting, no abdominal pain. NEUROLOGICAL: No headaches, no weakness, no numbness. HEMATOLOGICAL: Denies any bleeding or petechiae. GENITOURINARY: Denies any burning micturition, frequency, or urgency. MUSCULOSKELETAL/RHEUMATOLOGICAL: Denies any joint pain, swelling, or any muscle pain. ENDOCRINE: Denies any polyuria or polydipsia. The rest of the 14-point review of systems is negative. PHYSICAL EXAMINATION: GENERAL: The patient is alert and oriented x3, not in any acute distress. Well developed, well nourished. HEENT: Pupils are round and equally reacting to light. EOMI. No scleral icterus. No conjunctival pallor. Normocephalic, atraumatic. No pharyngeal erythema. No thyromegaly. CARDIOVASCULAR: S1 and S2 present. No murmurs, rubs, or gallops. PULMONARY: Coarse breath sounds bilaterally, no wheeze ABDOMEN: Soft, nontender, nondistended, normoactive bowel sounds. No palpable organomegaly. MUSCULOSKELETAL: No joint swelling or deformity. EXTREMITIES: No cyanosis, clubbing, or pedal edema. NEUROLOGICAL: Gross neurological examination did not reveal any focal deficits. SKIN: No rashes. Assessment and plan Bacterial pneumonia Chronic hypoxic respiratory failure COPD Hypertension Plan; Monitor vital signs Monitor CBC Continue telemetry monitoring Follow-up on blood cultures Trend troponins. Continue antibiotics Consult ID Continue breathing treatments Consult pulmonary Consult cardiology Past Medical History Past Medical History: Cancer, COPD, Hypertension Additional Past Medical History / Comment(s): non-hodgkins lymphoma, coronary arteriosclerosis, anemia History of Any Multi-Drug Resistant Organisms: ESBL Date of last positivie culture/infection: 06/19/22 E.coli ESBL MDRO Source:: Bronch Wash Past Surgical History: Back Surgery, Coronary Bypass/CABG Additional Past Surgical History / Comment(s): AAA repair in 03/30 with stent placed, carotid endarterectomy, on flomax for not emptying bladder per patient, CABG in 2001 Past Anesthesia/Blood Transfusion Reactions: No Reported Reaction Past Psychological History: No Psychological Hx Reported Smoking Status: Former smoker Past Alcohol Use History: None Reported Past Drug Use History: None Reported Medications and Allergies Home Medications Medication Instructions Recorded Confirmed Type Albuterol Inhaler [Ventolin Hfa 1 - 2 puff INHALATION RT-Q4H PRN 06/15/22 06/24/22 History Inhaler] Aspirin EC [Ecotrin Low Dose] 81 mg PO HS@209906/15/22 06/24/22 History Fluticasone Nasal [place] [Flonase 1 spray EA NOSTRIL DAILY@0900 06/15/22 06/24/22 History Nasal [place]] Fluticasone Propion/Salmeterol 1 puff INHALATION RT-BID@0900,209906/15/22 06/24/22 History [Fluticasone-Salmeterol 100-50] Metoprolol Succinate [Metoprolol 25 mg PO DAILY@0900 06/15/22 06/24/22 History Succinate ER] Multivitamins, Thera [Multivitamin 1 tab PO DAILY@0900 06/15/22 06/24/22 History (formulary)] Nitroglycerin Sl Tabs [Nitrostat] 0.4 mg SUBLINGUAL Q5M PRN 06/15/22 06/24/22 History [place]-3/Dha/Epa/Fish Oil [Fish Oil 1 cap PO HS@209906/15/22 06/24/22 History 1,000 mg Softgel] Pantoprazole [Protonix] 40 mg PO BID@0900,209906/15/22 06/24/22 History Simvastatin 80 mg PO HS@209906/15/22 06/24/22 History Tamsulosin [Flomax] 0.4 mg PO HS@209906/15/22 06/24/22 History Tiotropium 2.5 Mcg/Puff [Spiriva 2 puff INHALATION RT-HS@209906/15/22 06/24/22 History Respimat 2.5 Mcg] lisinopriL [Zestril] 10 mg PO DAILY@0900 06/15/22 06/24/22 History Budesonide/Formoterol Fumarate 1 puff INHALATION RT-BID@0900,209906/24/22 06/24/22 History [Symbicort 160-4.5 Mcg Inhaler] Lactobacillus Acidophilus 1 cap PO TID@0600,1400,2200 06/24/22 06/24/22 History [Acidophilus Probiotic] Albuterol Nebulized [Ventolin 2.5 mg INHALATION RT-Q4H PRN ml 06/27/22 Rx Nebulized] Budesonide-Formot 160-4.5 Mcg 2 puff INHALATION RT-BID 30 Days 06/27/22 Rx [Symbicort 160-4.5 Mcg Inhaler] #0 each Ertapenem [INVanz] 1 gm IVPB DAILY each 06/27/22 Rx Loratadine [Claritin] 10 mg PO DAILY PRN #30 tab 06/27/22 Rx Nystatin 100,000 Unit/ml Susp 5 ml PO 5XD #10 06/27/22 06/24/22 Rx [Mycostatin Oral Susp] guaiFENesin [Mucinex] 600 mg PO Q12HR #60 tab 06/27/22 Rx predniSONE 10 mg PO DIRECTED #64 tab 06/27/22 Rx Allergies Allergy/AdvReac Type Severity Reaction Status Date / Time No Known Allergies Allergy Verified 06/24/22 18:13 Physical Exam Vitals: Vital Signs Temp Pulse Resp BP Pulse Ox 09/22/22 16:13 92 18 107/58 96 09/22/22 15:32 99.6 F 09/22/22 14:40 103 H 18 96/46 92 L 09/22/22 13:17 102.4 F H 09/22/22 13:15 26 H 09/22/22 13:13 98 09/22/22 13:06 100 F H 120 H 30 H 153/66 93 L Intake and Output 09/22/22 09/22/22 09/22/22 06:59 14:59 22:59 Other: Weight 61.235 kg Results CBC & Chem 7: 09/22/22 13:27 09/22/22 13:27 Labs: Abnormal Lab Results - Last 24 Hours (Table) 09/22/22 09/22/22 09/22/22 Range/Units 13:27 13:27 13:27 RBC 3.98 L (4.30-5.90) m/uL Hgb 12.1 L (13.0-17.5) gm/dL Hct 35.7 L (39.0-53.0) % Plt Count 141 L (150-450) k/uL Neutrophils # (Manual) 1.10 L (1.3-7.7) k/uL Sodium 134 L (137-145) mmol/L BUN 29 H (9-20) mg/dL Creatinine 1.37 H (0.66-1.25) mg/dL Glucose 119 H (74-99) mg/dL Magnesium 1.4 L (1.6-2.3) mg/dL Troponin I 0.078 H* (0.000-0.034) ng/mL
[2022-09-22] MEDS: FAMOTIDINE 20 MG TAB PO SCH (20:35)
[2022-09-22 20:59] LABS: Appearance,Urine Clear (Clear); Bacteria,Urine Rare /hpf; Bilirubin,Urine Negative (Negative); Blood,Urine Trace (Negative); Color,Urine Light Yellow; Glucose,Urine (UA) 3+ (Negative); Ketones,Urine Negative (Negative); Leukocyte Esterase,Urine Negative (Negative); Mucus,Urine Rare /hpf; Nitrite,Urine Negative (Negative); PH, Urine 5.5 (5.0-8.0); Protein,Urine Trace (Negative); RBC,Urine <1 /hpf (0-5); Specific Gravity,Urine 1.006 (1.001-1.035); Squamous Epithelial Cell,Urine <1 /hpf (0-4); Urobilinogen,Urine <2.0 mg/dL (<2.0); WBC,Urine <1 /hpf (0-5)
[2022-09-22] MEDS: ATORVASTATIN 40 MG TAB PO SCH (23:05)
[2022-09-23] MEDS: SODIUM CHLORIDE 0.9% 1,000 ML IV SCH ×3 (05:48→20:46)
[2022-09-23] MEDS ORDERED: ALBUTEROL NEBULIZED 2.5 MG/3 ML INHALATION PRN (08:35)
[2022-09-23] MEDS ORDERED: NITROGLYCERIN SL TABS 0.4 MG TAB SUBLINGUAL PRN (08:35)
[2022-09-23] MEDS ORDERED: LACTOBACILLUS ACIDOPHILUS PO SCH (09:00)
[2022-09-23] MEDS: METOPROLOL SUCCINATE (ER) 25 MG TAB.ER.24H PO SCH (09:18)
[2022-09-23] MEDS: FUROSEMIDE 20 MG TAB PO SCH (09:18)
[2022-09-23] MEDS: MULTIVITAMINS, THERA 1 EACH TAB PO SCH (09:18)
[2022-09-23] MEDS: ASPIRIN 81 MG PO SCH (09:18)
[2022-09-23] MEDS: lisinopriL 10 MG TAB PO SCH (09:18)
[2022-09-23] MEDS: LACTOBACILLUS ACIDOPH & BULGAR 1 EACH PACKET PO SCH (09:18)
[2022-09-23] MEDS: TAMSULOSIN 0.4 MG CAP.ER.24H PO SCH (09:18)
[2022-09-23] MEDS: PANTOPRAZOLE 40 MG TABLET PO SCH ×2 (09:23→15:45)
[2022-09-23] MEDS: MEROPENEM 2 GM in SODIUM CHLORIDE 0.9% 100 ML IVPB SCH ×2 (10:52→20:46)
--- NOTE | 2022-09-23 11:36 | P.CNPUL ---
History of Present Illness Consult date: 09/23/22 Requesting physician: Keyanna Chauhan Reason for consult: pneumonia, other Chief complaint: Fever and cough History of present illness: This is a 77-year-old white male with history of multiple medical problems including history of ESBL E. coli pneumonia involving right lower lobe, COPD with FEV1 of 39% at best. history of non-Hodgkin's lymphoma, presently in remission, coronary arteriosclerosis, COPD, hypertension, history of duodenal ulcer, abdominal aortic aneurysm, and previous endovascular stent grafting, patient was seen yesterday in the walk-in clinic in [place], and he was compl aining of high temp as high as 103.7. Some cough, but no shortness of breath, no chest pain, no hemoptysis. Considering his history and considering his symptoms, patient was advised to go to the ER. Seen in the ER yesterday, and the chest x-ray showed significant infiltrate involving the left midlung and left lower lobe. Patient was admitted, and this consult was initiated. Looking back at the patient previous bronchoscopy for right lower lobe pneumonia, patient had ESBL E. coli cultured on the BAL, hence I went ahead and recommended that the patient goes on Merrem empirically is set of other antibiotics. In the meantime we are recommending sputum cultures, which are pending. Labs on admission showed relatively normal WBC count, hemoglobin 12.1, normal electrolytes, abnormal renal profile with creatinine of 1.37, and his pro- calcitonin level was elevated at 1.51 Review of Systems CONSTITUTIONAL: Fever as noted in HPI. HEENT: Denies sore throat. Denies headache RDIOVASCULAR: Denies chest pain, palpitations or syncopal episodes. RESPIRATORY: Cough, congestion, minimal shortness of breath. GASTROINTESTINAL: Denies change in appetite, denies abdominal pain GENITOURINARY: Denies hematuria, denies infections. MUSKULOSKELETAL: Denies pain, denies swelling. INTEGUMENTARY: Denies rash, denies eczema. NEUROLOGICAL: Denies recent memory loss, no recent seizure activity. PSYCHIATRIC: Denies anxiety, denies depression. HEMATOLOGIC/LYMPHATIC: History of non-Hodgkin's lymphoma. Past Medical History Past Medical History: Cancer, COPD, Hypertension Additional Past Medical History / Comment(s): non-hodgkins lymphoma, coronary arteriosclerosis, anemia History of Any Multi-Drug Resistant Organisms: ESBL Date of last positivie culture/infection: 06/19/22 E.coli ESBL MDRO Source:: Bronch Wash Past Surgical History: Back Surgery, Coronary Bypass/CABG Additional Past Surgical History / Comment(s): AAA repair in 03/30 with stent placed, carotid endarterectomy, on flomax for not emptying bladder per patient, CABG in 2001 Past Anesthesia/Blood Transfusion Reactions: No Reported Reaction Past Psychological History: No Psychological Hx Reported Smoking Status: Former smoker Past Alcohol Use History: None Reported Past Drug Use History: None Reported Medications and Allergies Home Medications Medication Instructions Recorded Confirmed Type Albuterol Inhaler [Ventolin Hfa 1 - 2 puff INHALATION RT-Q4H PRN 06/15/22 09/22/22 History Inhaler] Aspirin EC [Ecotrin Low Dose] 81 mg PO DAILY 06/15/22 09/22/22 History Fluticasone Propion/Salmeterol 1 puff INHALATION RT-BID 06/15/22 09/22/22 History [Fluticasone-Salmeterol 100-50] Metoprolol Succinate [Metoprolol 25 mg PO DAILY 06/15/22 09/22/22 History Succinate ER] Multivitamins, Thera [Multivitamin 1 tab PO DAILY 06/15/22 09/22/22 History (formulary)] Nitroglycerin Sl Tabs [Nitrostat] 0.4 mg SUBLINGUAL Q5M PRN 06/15/22 09/22/22 History [place]-3/Dha/Epa/Fish Oil [Fish Oil 1 cap PO DAILY 06/15/22 09/22/22 History 1,000 mg Softgel] Pantoprazole [Protonix] 40 mg PO BID 06/15/22 09/22/22 History Simvastatin 80 mg PO HS 06/15/22 09/22/22 History Tamsulosin [Flomax] 0.4 mg PO DAILY 06/15/22 09/22/22 History Tiotropium 2.5 Mcg/Puff [Spiriva 2 puff INHALATION RT-DAILY 06/15/22 09/22/22 History Respimat 2.5 Mcg] lisinopriL [Zestril] 10 mg PO DAILY 06/15/22 09/22/22 History Lactobacillus Acidophilus 1 cap PO DAILY 06/24/22 09/22/22 History [Acidophilus Probiotic] Albuterol Nebulized [Ventolin 2.5 mg INHALATION RT-Q4H PRN ml 06/27/22 09/22/22 Rx Nebulized] Torsemide [Demadex] 10 mg PO DAILY 09/22/22 09/22/22 History predniSONE 10 mg PO DAILY 09/22/22 09/22/22 History Allergies Allergy/AdvReac Type Severity Reaction Status Date / Time No Known Allergies Allergy Verified 09/22/22 17:34 Physical Exam Vitals: Vital Signs Temp Pulse Pulse Resp BP BP Pulse Ox 09/23/22 08:00 97.8 F 70 14 163/69 96 09/23/22 03:32 97.4 F L 75 18 137/70 100 09/23/22 02:00 75 18 09/22/22 23:49 97.7 F 76 18 132/70 99 09/22/22 20:00 97.6 F 81 18 129/69 97 09/22/22 18:00 97.8 F 73 18 123/68 95 09/22/22 16:13 92 18 107/58 96 09/22/22 15:32 99.6 F 09/22/22 14:40 103 H 18 96/46 92 L 09/22/22 13:17 102.4 F H 09/22/22 13:15 26 H 09/22/22 13:13 98 09/22/22 13:06 100 F H 120 H 30 H 153/66 93 L Intake and Output 09/22/22 09/23/22 09/23/22 22:59 06:59 14:59 Intake Total 120 Output Total 450 500 600 Balance -330 -500 -600 Intake: Oral 120 Output: Urine 450 500 600 Other: Voiding Method Urinal Urinal # Voids 0 Weight 61.235 kg GENERAL EXAM: Alert, pleasant 77-year-old male patient, in no distress. HEAD: Normocephalic. EYES: Normal reaction of pupils, equal size. NOSE: Clear with pink turbinates. THROAT: No erythema or exudates. NECK: No masses, no JVD. CHEST: No chest wall deformity. LUNGS: Crackles at the left base, otherwise lungs are clear. CVS: S1 and S2 normal with no audible murmur, regular rhythm. ABDOMEN: No hepatosplenomegaly, normal bowel sounds, no guarding or rigidity. SKIN: No rashes CENTRAL NERVOUS SYSTEM: No focal deficits, tone is normal in all 4 extremities. EXTREMITIES: There is no peripheral edema. No clubbing, no cyanosis. Peripheral pulses are intact. Results - Laboratory Findings CBC and BMP: 09/22/22 13:27 09/22/22 13:27 PT/INR, D-dimer PT 10.0 sec (9.0-12.0) 09/22/22 13: INR 0.9 (<1.2) 09/22/22 13:27 Abnormal lab findings: Abnormal Labs 09/22/22 09/22/22 09/22/22 13:27 13:27 13:27 RBC 3.98 L Hgb 12.1 L Hct 35.7 L Plt Count 141 L Neutrophils # (Manual) 1.10 L Sodium 134 L BUN 29 H Creatinine 1.37 H Glucose 119 H Magnesium 1.4 L Troponin I 0.078 H* Procalcitonin Urine Protein Urine Glucose (UA) Urine Blood Urine Bacteria Urine Mucus 09/22/22 09/22/22 09/22/22 16:29 20:35 20:37 RBC Hgb Hct Plt Count Neutrophils # (Manual) Sodium BUN Creatinine Glucose Magnesium Troponin I 0.099 H* 0.074 H* Procalcitonin Urine Protein Trace H Urine Glucose (UA) 3+ H Urine Blood Trace H Urine Bacteria Rare H Urine Mucus Rare H 09/22/22 20:37 RBC Hgb Hct Plt Count Neutrophils # (Manual) Sodium BUN Creatinine Glucose Magnesium Troponin I Procalcitonin 1.51 H Urine Protein Urine Glucose (UA) Urine Blood Urine Bacteria Urine Mucus - Diagnostic Findings Chest x-ray: image reviewed (As noted in HPI) Assessment and Plan Assessment: Impression: Acute healthcare acquired pneumonia, suspect ESBL E. coli pneumonia unless for otherwise. History of severe underlying COPD presently inactive. Chronic dyspnea, class III secondary to COPD. FEV1 value 39% of predicted Chronic and ongoing tobacco dependence of greater than 50 years Coronary disease Hypertension Hyperlipidemia Non-Hodgkin's lymphoma, presently in remission, patient has received rituxin Carotid atherosclerosis with previous right carotid endarterectomy Abdominal aortic aneurysm with previous endovascular stent grafting History of duodenal ulcer with hemorrhage Recommendation: Start patient on Merrem. Infectious disease was consulted. Resume bronchodilators for his underlying COPD Titrate FiO2 accordingly Resume home meds Discussed his condition with the admitting physician on the case. We'll continue to follow. Prognosis is guarded Time with Patient: Greater than 30
[2022-09-23] MEDS ORDERED: VANCOMYCIN 1,250 MG in SODIUM CHLORIDE 0.9% 250 ML IVPB SCH ×2 (12:00→14:00)
[2022-09-23] MEDS ORDERED: CEFEPIME 2 GM in SODIUM CHLORIDE 0.9% 100 ML IVPB SCH ×3 (12:00)
--- NOTE | 2022-09-23 12:38 | P.CRDCN ---
History of Present Illness Consult date: 09/23/22 History of present illness: Patient has a known history of COPD, he E coli pneumonia involving the right lower lung.coronary artery disease, history of non-Hodgkin's lymphoma presently in remission, hypertension, history of duodenal ulcer, abdominal aortic aneurysm status post endovascular stent grafting. Patient is followed by Dr. hCan in the office. We then consult to see the patient for elevated troponins. Patient came in complaining of shortness of breath. Troponins were 0.078, 0.099, 0.074. His EKG showed sinus tachycardia with a ventricular rate of 123 with PVCs, right bundle branch block, left anterior fistular block. His chest x-ray showed pneumonia with fibrotic lung disease,. His repeat EKG showed a sinus rhythm with a right bundle branch block in the left anterior fistular block. Patient's BNP was 1020 and his creatinine upon admission was 1.3. UA was positive. He reports last week he had an episode of chest pain that woke him up in the middle of night he took one nitro weight is a little bit pain resolved and then returned. He took the night number nitro and within half hour the pain had resolved. Today patient is resting comfortably in bed in no signs of acute distress. He denies any further episodes of chest pain. He still has some intermittent shortness of breath specially with activity. Will obtain a 2-D echocardiogram to evaluate LV function and wall motion. Troponins mildly elevated secondary to renal insufficiency. Will evaluate for further CAD workup once pulmonary and renal insufficiency had improved. Review of Systems REVIEW OF SYSTEMS At the time of my exam: CONSTITUTIONAL: Denies fever or chills. EYES: Negative for vision changes ENT: Negative for hearing loss CARDIOVASCULAR: Denies chest pain, shortness of breath, diaphoresis, orthopnea, PND or palpitations. VASCULAR: Denies edema RESPIRATORY: Denies cough. GASTROINTESTINAL: Denies abdominal pain, diarrhea, constipation, nausea or vomiting. MUSCULOSKELETAL: Denies myalgias. NEUROLOGIC: Denies numbness, tingling, headache or weakness. ENDOCRINE: Denies fatigue, weight change, polydipsia or polyurina. GENITOURINARY: Denies burning, hematuria or urgency with micturation. HEMATOLOGIC: Denies history of anemia or bleeding. DERMATOLOGY: Denies rash or skin sores PSYCH: Negative for depression or hallucinations. Past Medical History Past Medical History: Cancer, COPD, Hypertension Additional Past Medical History / Comment(s): non-hodgkins lymphoma, coronary arteriosclerosis, anemia History of Any Multi-Drug Resistant Organisms: ESBL Date of last positivie culture/infection: 06/19/22 E.coli ESBL MDRO Source:: Bronch Wash Past Surgical History: Back Surgery, Coronary Bypass/CABG Additional Past Surgical History / Comment(s): AAA repair in 03/30 with stent placed, carotid endarterectomy, on flomax for not emptying bladder per patient, CABG in 2001 Past Anesthesia/Blood Transfusion Reactions: No Reported Reaction Past Psychological History: No Psychological Hx Reported Smoking Status: Former smoker Past Alcohol Use History: None Reported Past Drug Use History: None Reported Medications and Allergies Home Medications Medication Instructions Recorded Confirmed Type Albuterol Inhaler [Ventolin Hfa 1 - 2 puff INHALATION RT-Q4H PRN 06/15/22 09/22/22 History Inhaler] Aspirin EC [Ecotrin Low Dose] 81 mg PO DAILY 06/15/22 09/22/22 History Fluticasone Propion/Salmeterol 1 puff INHALATION RT-BID 06/15/22 09/22/22 History [Fluticasone-Salmeterol 100-50] Metoprolol Succinate [Metoprolol 25 mg PO DAILY 06/15/22 09/22/22 History Succinate ER] Multivitamins, Thera [Multivitamin 1 tab PO DAILY 06/15/22 09/22/22 History (formulary)] Nitroglycerin Sl Tabs [Nitrostat] 0.4 mg SUBLINGUAL Q5M PRN 06/15/22 09/22/22 H [address]ory [place]-3/Dha/Epa/Fish Oil [Fish Oil 1 cap PO DAILY 06/15/22 09/22/22 History 1,000 mg Softgel] Pantoprazole [Protonix] 40 mg PO BID 06/15/22 09/22/22 History Simvastatin 80 mg PO HS 06/15/22 09/22/22 History Tamsulosin [Flomax] 0.4 mg PO DAILY 06/15/22 09/22/22 History Tiotropium 2.5 Mcg/Puff [Spiriva 2 puff INHALATION RT-DAILY 06/15/22 09/22/22 History Respimat 2.5 Mcg] lisinopriL [Zestril] 10 mg PO DAILY 06/15/22 09/22/22 History Lactobacillus Acidophilus 1 cap PO DAILY 06/24/22 09/22/22 History [Acidophilus Probiotic] Albuterol Nebulized [Ventolin 2.5 mg INHALATION RT-Q4H PRN ml 06/27/22 09/22/22 Rx Nebulized] Torsemide [Demadex] 10 mg PO DAILY 09/22/22 09/22/22 History predniSONE 10 mg PO DAILY 09/22/22 09/22/22 History Allergies Allergy/AdvReac Type Severity Reaction Status Date / Time No Known Allergies Allergy Verified 09/22/22 17:34 Physical Exam Vitals: Vital Signs Temp Pulse Pulse Resp BP BP Pulse Ox 09/23/22 08:00 97.8 F 70 14 163/69 96 09/23/22 03:32 97.4 F L 75 18 137/70 100 09/23/22 02:00 75 18 09/22/22 23:49 97.7 F 76 18 132/70 99 09/22/22 20:00 97.6 F 81 18 129/69 97 09/22/22 18:00 97.8 F 73 18 123/68 95 09/22/22 16:13 92 18 107/58 96 09/22/22 15:32 99.6 F 09/22/22 14:40 103 H 18 96/46 92 L 09/22/22 13:17 102.4 F H 09/22/22 13:15 26 H 09/22/22 13:13 98 09/22/22 13:06 100 F H 120 H 30 H 153/66 93 L Intake and Output 09/22/22 09/23/22 09/23/22 22:59 06:59 14:59 Intake Total 120 Output Total 450 500 600 Balance -330 -500 -600 Intake: Oral 120 Output: Urine 450 500 600 Other: Voiding Method Urinal Urinal # Voids 0 Weight 61.235 kg General: The patient is awake and alert, in no distress, and does not appear a cutely ill. Skin: Skin is warm and dry and no rashes or lesions are noted. Eye: Pupils are equal, round and reactive to light, extra-ocular movements are intact; there is normal conjunctiva bilaterally. Ears, nose, mouth and throat: There are moist mucous membranes and no oral lesions. Neck: The neck is supple, there is no tenderness or JVD. Cardiovascular: There is irregular regular rate and rhythm. No murmur, rub or gallop is appreciated. Respiratory: Lungs are clear to auscultation, respirations are non-labored, breath sounds are equal. Gastrointestinal: Soft, non-distended, non-tender abdomen without masses or organomegaly noted. There is no rebound or guarding present. Bowel sounds are unremarkable. Back: There is no tenderness to palpation in the midline. There is no obvious deformity. Musculoskeletal: Normal ROM, no tenderness, There is no pedal edema. There is no calf tenderness or swelling. Extremities: Mild bilateral pitting edema Vascular: Femoral pulse is normal. Posterior tibial pulses are normal .Dorsalis pedis is palpable. Neurological: CN II-XII intact. There are no obvious motor or sensory deficits. Speech is normal. Psychiatric: Cooperative, appropriate mood & affect, normal judgment Results 09/22/22 13:27 09/22/22 13:27 Cardiac Enzymes 09/22/22 09/22/22 09/22/22 Range/Units 13: 13: 16:29 AST 29 (17-59) U/L Troponin I 0.078 H* 0.099 H* (0.000-0.034) ng/mL 09/22/22 Range/Units 20:37 AST (17-59) U/L Troponin I 0.074 H* (0.000-0.034) ng/mL Coagulation 09/22/22 Range/Units 13: PT 10.0 (9.0-12.0) sec APTT 22.9 (22.0-30.0) sec CBC 09/22/22 Range/Units 13:27 WBC 5.5 (3.8-10.6) k/uL RBC 3.98 L (4.30-5.90) m/uL Hgb 12.1 L (13.0-17.5) gm/dL Hct 35.7 L (39.0-53.0) % Plt Count 141 L (150-450) k/uL Comprehensive Metabolic Panel 09/22/22 Range/Units 13:27 Sodium 134 L (137-145) mmol/L Potassium 4.3 (3.5-5.1) mmol/L Chloride 100 (98-107) mmol/L Carbon Dioxide 26 (22-30) mmol/L BUN 29 H (9-20) mg/dL Creatinine 1.37 H (0.66-1.25) mg/dL Glucose 119 H (74-99) mg/dL Calcium 8.8 (8.4-10.2) mg/dL AST 29 (17-59) U/L ALT 25 (4-49) U/L Alkaline Phosphatase 57 (38-126) U/L Total Protein 6.3 (6.3-8.2) g/dL Albumin 3.8 (3.5-5.0) g/dL Current Medications Generic Name Dose Route Start Last Admin Trade Name Freq PRN Reason Stop Dose Admin Acetaminophen 650 mg 09/22/22 15:31 Acetaminophen Tab 325 Mg Tab PO Q6HR PRN Mild Pain or Fever > 100.5 Albuterol Sulfate 2.5 mg 09/23/22 08:35 Albuterol Nebulized 2.5 Mg/3 Ml INHALATION RT-Q4H PRN Shortness Of Breath Aspirin 81 mg 09/23/22 09:00 09/23/22 09:18 Aspirin 81 Mg PO 81 mg DAILY ROSALBA Administration Atorvastatin Calcium 40 mg 09/22/22 21:00 09/22/22 23:05 Atorvastatin 40 Mg Tab PO 40 mg HS ROSALBA Administration Budesonide/Formoterol Fumarate 2 puff 09/23/22 20:00 Symbicort 160-4.5 Mcg Inhaler INHALATION RT-BID ROSALBA Famotidine 20 mg 09/22/22 21:00 09/22/22 20:35 Famotidine 20 Mg Tab PO 20 mg HS ROSALBA Administration Furosemide 20 mg 09/23/22 09:00 09/23/22 09:18 Furosemide 20 Mg Tab PO 20 mg DAILY ROSALBA Administration Sodium Chloride 1,000 mls @ 130 mls/hr 09/22/22 15:30 09/23/22 05:48 Saline 0.9% IV 130 mls/hr .Q7H42M ROSALBA Administration Meropenem 2 gm/ Sodium 100 mls @ 33.3 mls/hr 09/23/22 10:00 09/23/22 10:52 Chloride IVPB 33.3 mls/hr Q12HR ROSALBA Administration Protocol Ipratropium [place] 0.5 mg 09/24/22 08:00 Ipratropium 0.5 Mg/2.5 Ml Nebu INHALATION RT-QID ROSALBA Lactobacillus Acidoph/[place] 1 each 09/23/22 09:00 09/23/22 09:18 Lactobacillus Acidoph & [place] 1 Each Packet PO 1 each DAILY ROSALBA Administration Lisinopril 10 mg 09/23/22 09:00 09/23/22 09:18 Lisinopril 10 Mg Tab PO 10 mg DAILY ROSALBA Administration Metoprolol Succinate 25 mg 09/23/22 09:00 09/23/22 09:18 Metoprolol Succinate (Er) 25 Mg Tab.Er.24h PO 25 mg DAILY ROSALBA Administration Multivitamins 1 each 09/23/22 09:00 09/23/22 09:18 Multivitamins, Thera 1 Each Tab PO 1 each DAILY ROSALBA Administration Naloxone HCl 0.2 mg 09/22/22 15:31 Naloxone 0.4 Mg/Ml 1 Ml Vial IV Q2M PRN Opioid Reversal Nitroglycerin 0.4 mg 09/23/22 08:35 Nitroglycerin Sl Tabs 0.4 Mg Tab SUBLINGUAL Q5M PRN Chest Pain Pantoprazole Sodium 40 mg 09/23/22 09:00 09/23/22 09:23 Pantoprazole 40 Mg Tablet PO 40 mg AC-BID ROSALBA Administration Tamsulosin HCl 0.4 mg 09/23/22 09:00 09/23/22 09:18 Tamsulosin 0.4 Mg Cap.Er.24h PO 0.4 mg DAILY ROSALBA Administration Intake and Output 09/22/22 09/23/22 09/23/22 22:59 06:59 14:59 Intake Total 120 Output Total 450 500 600 Balance -330 -500 -600 Intake: Oral 120 Output: Urine 450 500 600 Other: Voiding Method Urinal Urinal # Voids 0 Weight 61.235 kg 09/22/22 13:27 09/22/22 13:27 Assessment and Plan Assessment: Mildly elevated troponin secondary to renal insufficiency Known history of coronary artery disease Plan: obtain a 2-D echocardiogram We'll evaluate further for CAD once respiratory and kidney status has improved Continue with all current cardiac medications Continue with telemetry monitoring Further recommendations based on clinical course The above impression and plan of care have been discussed and directed by the signing physician. Landy Ron, nurse practitioner, acting as scribe for signing physician.
--- NOTE | 2022-09-23 12:48 | P.PN ---
Subjective Progress Note Date: 09/23/22 patient is a 77-year-old gentleman with past medical history significant for COPD who presented to the ER because of worsening shortness of breath for the last few days. Patient was complaining of shortness of breath on exertion. Complaining of productive cough, phlegm was brownish in color. This morning patient had fever of 103. Denied any chest pain. Denies any nausea, vomiting or abdominal pain. Patient was worked up in the ER, initial white count was 5.5, hemoglobin 12.1, sodium of 134, potassium 4.3, BUN 29, creatinine 1.37. Chest x-ray showed new left lung airspace opacity concerning for pneumonia. Patient was started on IV antibiotics and admitted to hospitalist service 09/23. Patient seen and examined. States cough has improved, still bringing up phlegm. Denies any lightheadedness or dizziness. Vital signs stable REVIEW OF SYSTEMS: CONSTITUTIONAL: No fever, no malaise,. CARDIOVASCULAR: No chest pain, no palpitations, no syncope. PULMONARY: No shortness of breath at rest GASTROINTESTINAL: No diarrhea, no nausea, no vomiting, no abdominal pain. NEUROLOGICAL: No headaches, no weakness, PHYSICAL EXAMINATION: GENERAL: The patient is alert and oriented x3, not in any acute distress. Well developed, well nourished. HEENT: Pupils are round and equally reacting to light. EOMI. No scleral icterus. No conjunctival pallor. Normocephalic, atraumatic. No pharyngeal erythema. No thyromegaly. CARDIOVASCULAR: S1 and S2 present. No murmurs, rubs, or gallops. PULMONARY: Chest is clear to auscultation, no wheezing or crackles. ABDOMEN: Soft, nontender, nondistended, normoactive bowel sounds. No palpable organomegaly. MUSCULOSKELETAL: No joint swelling or deformity. EXTREMITIES: No cyanosis, clubbing, or pedal edema. NEUROLOGICAL: Gross neurological examination did not reveal any focal deficits. SKIN: No rashes. Assessment and plan Assessment and plan Bacterial pneumonia Chronic hypoxic respiratory failure COPD Hypertension Elevated troponin Plan; Monitor vital signs Monitor CBC Continue telemetry monitoring Follow-up on blood cultures Trend troponins. 2-D echo ordered Antibiotics changed to meropenem Continue breathing treatments Follow-up on pulmonary recommendations Follow-up cardiology recommendations Follow-up on ID recommendations Objective - Vital Signs Vital signs: Vital Signs Temp 97.8 F 01/15/23 08:00 Pulse 70 09/23/22 08:00 Resp 14 09/23/22 08:00 BP 163/69 09/23/22 08:00 Pulse Ox 96 09/23/22 08:00 FiO2 Intake & Output 09/22/22 09/23/22 09/23/22 18:59 06:59 18:59 Intake Total 120 Output Total 950 600 Balance -830 -600 Weight 61.235 kg Intake: Oral 120 Output: Urine 950 600 Other: Voiding Method Urinal Urinal # Voids 0 - Labs CBC & Chem 7: 09/22/22 13:27 09/22/22 13:27 Labs: Abnormal Lab Results - Last 24 Hours (Table) 09/22/22 09/22/22 09/22/22 Range/Units 13:27 13:27 13:27 RBC 3.98 L (4.30-5.90) m/uL Hgb 12.1 L (13.0-17.5) gm/dL Hct 35.7 L (39.0-53.0) % Plt Count 141 L (150-450) k/uL Neutrophils # (Manual) 1.10 L (1.3-7.7) k/uL Sodium 134 L (137-145) mmol/L BUN 29 H (9-20) mg/dL Creatinine 1.37 H (0.66-1.25) mg/dL Glucose 119 H (74-99) mg/dL Magnesium 1.4 L (1.6-2.3) mg/dL Troponin I 0.078 H* (0.000-0.034) ng/mL Procalcitonin (0.02-0.09) ng/mL Urine Protein (Negative) Urine Glucose (UA) (Negative) Urine Blood (Negative) Urine Bacteria (None) /hpf Urine Mucus (None) /hpf 09/22/22 09/22/22 09/22/22 Range/Units 16:29 20:35 20:37 RBC (4.30-5.90) m/uL Hgb (13.0-17.5) gm/dL Hct (39.0-53.0) % Plt Count (150-450) k/uL Neutrophils # (Manual) (1.3-7.7) k/uL Sodium (137-145) mmol/L BUN (9-20) mg/dL Creatinine (0.66-1.25) mg/dL Glucose (74-99) mg/dL Magnesium (1.6-2.3) mg/dL Troponin I 0.099 H* 0.074 H* (0.000-0.034) ng/mL Procalcitonin (0.02-0.09) ng/mL Urine Protein Trace H (Negative) Urine Glucose (UA) 3+ H (Negative) Urine Blood Trace H (Negative) Urine Bacteria Rare H (None) /hpf Urine Mucus Rare H (None) /hpf 09/22/22 Range/Units 20:37 RBC (4.30-5.90) m/uL Hgb (13.0-17.5) gm/dL Hct (39.0-53.0) % Plt Count (150-450) k/uL Neutrophils # (Manual) (1.3-7.7) k/uL Sodium (137-145) mmol/L BUN (9-20) mg/dL Creatinine (0.66-1.25) mg/dL Glucose (74-99) mg/dL Magnesium (1.6-2.3) mg/dL Troponin I (0.000-0.034) ng/mL Procalcitonin 1.51 H (0.02-0.09) ng/mL Urine Protein (Negative) Urine Glucose (UA) (Negative) Urine Blood (Negative) Urine Bacteria (None) /hpf Urine Mucus (None) /hpf Microbiology - Last 24 Hours (Table) 09/22/22 11:13 Blood Culture - Final Blood 09/22/22 11:28 Blood Culture - Final Blood
[2022-09-23] MEDS ORDERED: VANCOMYCIN IV PER PHARMACY 1 EACH MISC MISCELLANE PRN (13:45)
[2022-09-23] MEDS ORDERED: AZITHROMYCIN 500 MG in SODIUM CHLORIDE 0.9% 250 ML IVPB SCH (16:00)
[2022-09-23] MEDS ORDERED: SYMBICORT 80-4.5 MCG INHALER INHALATION SCH (20:00)
[2022-09-23] MEDS: SYMBICORT 160-4.5 MCG INHALER INHALATION SCH (20:26)
[2022-09-23] MEDS: FAMOTIDINE 20 MG TAB PO SCH (20:46)
[2022-09-23] MEDS: ATORVASTATIN 40 MG TAB PO SCH (20:46)
--- NOTE | 2022-09-23 22:51 | P.CONS ---
History of Present Illness - Reason for Consult Consult date: 09/23/22 Pneumonia and bacteremia Requesting physician: Ifrah Sainz - Chief Complaint Increasing cough and chills x 2 days - History of Present Illness Patient is 77 year old male with a past medical history significant for non-Hodgkin lymphoma history of COPD hypertension patient was admitted back in June 2022 in this patient status post bronchoscopy culture were positive for ESBL E. coli that was treated with IV antibiotic therapy, patient now presented to the ER yesterday afternoon for evaluation of increasing shortness of breath and cough along with fever his symptom of increasing cough has been going on since Saturday that is 3 days before presentation to the hospital cough has been moderate in intensity and the patient is bring up some green spu katt no hemoptysis or pleuritic chest pain patient also started having rigors and chills and did have a fever of 103F at home patient did have a negative cover test at home, on arrival to the ER patient did have a fever of 102F, patient did have a normal white count did have elevated troponin be included a mildly elevated pro calcitonin is elevated 1.51, patient did have a chest x-ray with new left lung airspace opacity concerning for pneumonia patient was started on cefepime and vancomycin antibiotic was subsequent switched over to meropenem by pulmonary and infectious disease was consulted for further management of antibiotic therapy patient did have blood culture drawn in the ER. the back positive with gram-positive cocci Review of Systems Positive point has been mentioned in the HPI rest of the systems are negative Past Medical History Past Medical History: Cancer, COPD, Hypertension Additional Past Medical History / Comment(s): non-hodgkins lymphoma, coronary arteriosclerosis, anemia History of Any Multi-Drug Resistant Organisms: ESBL Year Discovered:: 06/19/22 E.coli ESBL MDRO Source:: Bronch Wash Past Surgical History: Back Surgery, Coronary Bypass/CABG Additional Past Surgical History / Comment(s): AAA repair in 03/30 with stent placed, carotid endarterectomy, on flomax for not emptying bladder per patient, CABG in 2001 Past Anesthesia/Blood Transfusion Reactions: No Reported Reaction Past Psychological History: No Psychological Hx Reported Smoking Status: Former smoker Past Alcohol Use History: None Reported Past Drug Use History: None Reported Medications and Allergies Home Medications Medication Instructions Recorded Confirmed Type Albuterol Inhaler [Ventolin Hfa 1 - 2 puff INHALATION RT-Q4H PRN 06/15/22 09/22/22 History Inhaler] Aspirin EC [Ecotrin Low Dose] 81 mg PO DAILY 06/15/22 09/22/22 History Multivitamins, Thera [Multivitamin 1 tab PO DAILY 06/15/22 09/22/22 History (formulary)] Nitroglycerin Sl Tabs [Nitrostat] 0.4 mg SUBLINGUAL Q5M PRN 06/15/22 09/22/22 History [place]-3/Dha/Epa/Fish Oil [Fish Oil 1 cap PO DAILY 06/15/22 09/22/22 History 1,000 mg Softgel] Pantoprazole [Protonix] 40 mg PO BID 06/15/22 09/22/22 History Tamsulosin [Flomax] 0.4 mg PO DAILY 06/15/22 09/22/22 History Tiotropium 2.5 Mcg/Puff [Spiriva 2 puff INHALATION RT-DAILY 06/15/22 09/22/22 History Respimat 2.5 Mcg] Lactobacillus Acidophilus 1 cap PO DAILY 06/24/22 09/22/22 History [Acidophilus Probiotic] Albuterol Nebulized [Ventolin 2.5 mg INHALATION RT-Q4H PRN ml 06/27/22 09/22/22 Rx Nebulized] Torsemide [Demadex] 10 mg PO DAILY 09/22/22 09/22/22 History Acetaminophen Tab [Tylenol] 650 mg PO Q6HR PRN tab 09/28/22 Rx Atorvastatin [Lipitor] 40 mg PO HS 30 Days #30 tab 09/28/22 Rx Budesonide-Formot 160-4.5 Mcg 2 puff INHALATION RT-BID 30 Days 09/28/22 Rx [Symbicort 160-4.5 Mcg Inhaler] #1 each Clopidogrel [Plavix] 75 mg PO DAILY 30 Days #30 tab 09/28/22 Rx Levofloxacin [Levaquin] 500 mg PO DAILY 5 Days #5 tab 09/28/22 Rx Metoprolol Succinate (ER) [Toprol 50 mg PO DAILY 30 Days #30 tab 09/28/22 Rx XL] lisinopriL [Zestril] 5 mg PO DAILY 30 Days #15 tab 09/28/22 Rx Allergies Allergy/AdvReac Type Severity Reaction Status Date / Time No Known Allergies Allergy Verified 09/22/22 17:34 Physical Exam Vitals: Vital Signs Temp Pulse Pulse Resp BP BP Pulse Ox 09/23/22 08:00 97.8 F 70 14 163/69 96 09/23/22 03:32 97.4 F L 75 18 137/70 100 09/23/22 02:00 75 18 09/22/22 23:49 97.7 F 76 18 132/70 99 09/22/22 20:00 97.6 F 81 18 129/69 97 09/22/22 18:00 97.8 F 73 18 123/68 95 09/22/22 16:13 92 18 107/58 96 09/22/22 15:32 99.6 F 09/22/22 14:40 103 H 18 96/46 92 L 09/22/22 13:17 102.4 F H 09/22/22 13:15 26 H 09/22/22 13:13 98 09/22/22 13:06 100 F H 120 H 30 H 153/66 93 L Intake and Output 09/22/22 09/23/22 09/23/22 22:59 06:59 14:59 Intake Total 120 Output Total 450 500 600 Balance -330 -500 -600 Intake: Oral 120 Output: Urine 450 500 600 Other: Voiding Method Urinal Urinal # Voids 0 Weight 61.235 kg GENERAL DESCRIPTION: Elderly male lying in bed, no distress. No tachypnea or accessory muscle of respiration use. HEENT: Shows Pallor , no scleral icterus. Oral mucous membrane is dry. No pharyngeal erythema or thrush NECK: Trachea central, no thyromegaly. LUNGS: Unlabored breathing. Coarse breath sounds bilaterally. HEART: S1, S2, regular rate and rhythm. No loud murmur ABDOMEN: Soft, no tenderness , guarding or rigidity, no organomegaly EXTREMITIES: Mild swelling lower extremity SKIN: No rash, no masses palpable. Multiple bruises NEUROLOGICAL: The patient is awake, alert, oriented x3, mood and affect normal. Results CBC & Chem 7: 09/28/22 05:37 09/28/22 05:37 Labs: Abnormal Lab Results - Last 24 Hours (Table) 09/22/22 09/22/22 09/22/22 Range/Units 13:27 13:27 13:27 RBC 3.98 L (4.30-5.90) m/uL Hgb 12.1 L (13.0-17.5) gm/dL Hct 35.7 L (39.0-53.0) % Plt Count 141 L (150-450) k/uL Neutrophils # (Manual) 1.10 L (1.3-7.7) k/uL Sodium 134 L (137-145) mmol/L BUN 29 H (9-20) mg/dL Creatinine 1.37 H (0.66-1.25) mg/dL Glucose 119 H (74-99) mg/dL Magnesium 1.4 L (1.6-2.3) mg/dL Troponin I 0.078 H* (0.000-0.034) ng/mL Procalcitonin (0.02-0.09) ng/mL Urine Protein (Negative) Urine Glucose (UA) (Negative) Urine Blood (Negative) Urine Bacteria (None) /hpf Urine Mucus (None) /hpf 09/22/22 09/22/22 09/22/22 Range/Units 16:29 20:35 20:37 RBC (4.30-5.90) m/uL Hgb (13.0-17.5) gm/dL Hct (39.0-53.0) % Plt Count (150-450) k/uL Neutrophils # (Manual) (1.3-7.7) k/uL Sodium (137-145) mmol/L BUN (9-20) mg/dL Creatinine (0.66-1.25) mg/dL Glucose (74-99) mg/dL Magnesium (1.6-2.3) mg/dL Troponin I 0.099 H* 0.074 H* (0.000-0.034) ng/mL Procalcitonin (0.02-0.09) ng/mL Urine Protein Trace H (Negative) Urine Glucose (UA) 3+ H (Negative) Urine Blood Trace H (Negative) Urine Bacteria Rare H (None) /hpf Urine Mucus Rare H (None) /hpf 09/22/22 Range/Units 20:37 RBC (4.30-5.90) m/uL Hgb (13.0-17.5) gm/dL Hct (39.0-53.0) % Plt Count (150-450) k/uL Neutrophils # (Manual) (1.3-7.7) k/uL Sodium (137-145) mmol/L BUN (9-20) mg/dL Creatinine (0.66-1.25) mg/dL Glucose (74-99) mg/dL Magnesium (1.6-2.3) mg/dL Troponin I (0.000-0.034) ng/mL Procalcitonin 1.51 H (0.02-0.09) ng/mL Urine Protein (Negative) Urine Glucose (UA) (Negative) Urine Blood (Negative) Urine Bacteria (None) /hpf Urine Mucus (None) /hpf Microbiology - Last 24 Hours (Table) 09/22/22 11:13 Blood Culture - Final Blood 09/22/22 11:28 Blood Culture - Final Blood Assessment and Plan (1) Sepsis Current Visit: Yes Status: Acute Code(s): A41.9 - SEPSIS, UNSPECIFIED ORGANISM SNOMED Code(s): 39512780 (2) Pneumonia Current Visit: No Status: Acute Code(s): J18.9 - PNEUMONIA, UNSPECIFIED ORGANISM SNOMED Code(s): 254083719 Plan: 1patient is in the hospital with sepsis in this patient who did have a fever hypoxemia evidence of increasing/new infiltrate on the left side concerning for pneumonia in this patient who do have a history of COPD and history of ESBL E. coli pneumonia in June 2022, he will need to cover for resistant gram- positive as well as gram-negative pathogen 2patient with a positive blood culture with gram-positive cocci source likely pneumonia versus staph epi in the skin contamination 3renal insufficiency and high risk of nephrotoxicity 4we will obtain sputum for grams and culture 5patient to continue with the meropenem and vancomycin while waiting for the cultures to finalize We will follow on clinical condition and cultures to further adjust medication if needed Thank you for this consultation will follow this patient with you Time with Patient: Greater than 30
[2022-09-24] MEDS ORDERED: FUROSEMIDE 10 MG/ML 4 ML VIAL ONE (03:58)
[2022-09-24] MEDS ORDERED: FUROSEMIDE 10 MG/ML 4 ML VIAL IV STA ×2 (04:01→05:21)
[2022-09-24 04:02] LABS: Glucose,Whole Blood 109 mg/dL (70-110)
[2022-09-24] MEDS ORDERED: NITROGLYCERIN OINT 1 INCH/GM PACKET TOPICAL STA (04:30)
[2022-09-24] MEDS ORDERED: hydrALAZINE HCL 20 MG/ML 1 ML VIAL IVP STA (04:31)
[2022-09-24] MEDS ORDERED: FUROSEMIDE 10 MG/ML 2 ML VIAL IV ONE (04:31)
--- NOTE | 2022-09-24 04:45 | XR ---
EXAMINATION TYPE: XR chest 1V portable DATE OF EXAM: 09/24/2022 COMPARISON: 09/22/2022 HISTORY: Respiratory distress TECHNIQUE: Single view FINDINGS: There is airspace consolidation in the periphery of both midlung cox. There is general c oarse interstitial density throughout the lungs. There are sternal wires. Heart size is normal. No pl eural fluid seen on the left side. There is mild right pleural effusion. IMPRESSION: There is increasing bilateral pulmonary infiltrates compared to recent exam. There is und erlying pulmonary fibrosis. There is an new mild right pleural effusion.
[2022-09-24 04:52] LABS: HGB 11.6 gm/dL (13.0-17.5); MCH 30.1 pg (25.0-35.0); MCHC 33.2 g/dL (31.0-37.0); MCV 90.7 fL (80.0-100.0); Mean Platelet Volume 9.8; Platelet Count 156 k/uL (150-450); RBC 3.86 m/uL (4.30-5.90); RDW 13.2 % (11.5-15.5); WBC 4.3 k/uL (3.8-10.6)
[2022-09-24 05:02] LABS: Albumin 3.4 g/dL (3.5-5.0); Calcium 8.4 mg/dL (8.4-10.2); Potassium 4.1 mmol/L (3.5-5.1); Total Bilirubin 0.4 mg/dL (0.2-1.3)
[2022-09-24] MEDS ORDERED: amLODIPine 10 MG TAB PO STA (05:21)
[2022-09-24] MEDS ORDERED: METOPROLOL SUCCINATE (ER) 25 MG TAB.ER.24H PO STA (05:21)
[2022-09-24 05:41] LABS: Band Neutrophils % 2 %; Eosinophils # (M) 0.04 k/uL (0-0.7); Lymphocytes # (M) 1.12 k/uL (1.0-4.8); Neutrophils % (M) 64 %; Nucleated Red Blood Cells 0 /100 WBC (0-0); Total Cells Counted 100
[2022-09-24 05:42] LABS: Poikilocytosis (M) Present
[2022-09-24] MEDS ORDERED: NITROGLYCERIN OINT 1 INCH/GM PACKET TOPICAL SCH (06:00)
--- NOTE | 2022-09-24 06:04 | P.EN ---
A- team: Indication: Hypoxemia, respiratory distress Arrived on Scene to find: Patient sitting at the edge of the bed, in mild respiratory distress on 15 L nonrebreather. Patient reports that his breathing acutely worsened this morning. He also reports noticing gradually worsening lower extremity edema throughout the day. Chart was reviewed and case was discussed in detail with the RN at the bedside. The patient was admitted for pneumonia with chronic hypoxic respiratory failure. He was maintained on normal saline at 130 mL an hour since admission. Chest x-ray this morning revealed significantly worsened bilateral pulmonary infiltrates with a mild right-sided pleural effusion. The patient was given 100 mg of Lasix IV total and has made 1200 mL of urine since 3:30 AM. ProBNP levels were elevated at 4790, up from 1020 on admission. The patient is also on appropriate abx coverage for bacterial pneumonia and sepsis with blood culture positive and ID following. Vital signs reviewed: BP 182/96, SpO2 96% on 15 L nonrebreather, temp 98.4, pulse 80 Patient seen and examined at bedside. General: [non toxic], in mild respiratory distress, [appears at stated age] Derm: [warm], [dry] Head: [atraumatic], [normocephalic], [symmetric] Eyes: [EOMI], [no lid lag], [anicteric sclera] Mouth: [no lip lesion], [mucus membranes moist] Cardiovascular: [S1S2 reg], [no murmur], [positive posterior tibial pulse bilateral], Lungs: Diffuse rhonchi and rales, no wheezing, [no accessory muscle use] Abdominal: [soft], [ nontender to palpation], [no guarding], [no appreciable organomegaly] Ext: [no gross muscle atrophy], 2+ bilateral lower extremity pitting edema, [no contractures] Neuro: [ CN II-XI grossly intact], [no focal neuro deficits] Psych: [Alert], [oriented], [appropriate affect] Assessment: Acute hypoxic respiratory failure suspected secondary to acute CHF exacerbation in setting of aggressive IV hydration Plan: -Patient started on BiPAP -Initiate nitroglycerin infusion -Primary team and metal patternmaker on-call notified -Obtain Echocardiogram A Total of 40 minutes of critical care time was spent on the complex care of this patient.
[2022-09-24 06:13] LABS: Glucose,Whole Blood 102 mg/dL (70-110)
[2022-09-24] MEDS: NITROGLYCERIN-D5W PMX 50 MG in DEXTROSE/WATER 1 250ML.BAG IV SCH (06:14)
[2022-09-24] MEDS: FUROSEMIDE 20 MG TAB PO SCH (08:00)
[2022-09-24] MEDS ORDERED: Magnesium Replacement Protocol 1 EACH MISC MISCELLANE PRN (08:44)
[2022-09-24] MEDS: METOPROLOL SUCCINATE (ER) 25 MG TAB.ER.24H PO SCH (09:13)
[2022-09-24] MEDS: PANTOPRAZOLE 40 MG TABLET PO SCH ×2 (09:13→16:36)
[2022-09-24] MEDS: ASPIRIN 81 MG PO SCH (09:13)
[2022-09-24] MEDS: TAMSULOSIN 0.4 MG CAP.ER.24H PO SCH (09:13)
[2022-09-24] MEDS: MAGNESIUM SULFATE-D5W PMX 1 GM in DEXTROSE/WATER 1 100ML.BAG IVPB SCH ×2 (09:14→10:25)
[2022-09-24] MEDS: IPRATROPIUM 0.5 MG/2.5 ML NEBU INHALATION SCH ×4 (10:23→19:09)
--- NOTE | 2022-09-24 10:23 | P.PN ---
Subjective Progress Note Date: 09/24/22 Principal diagnosis: Coronary artery disease This is a 77-year-old gentleman with a past medical history significant for CAD and status post CABG as well as COPD as well as history of non-Hodgkin lymphoma and hypertension and dyslipidemia who follows with Dr. Chan regularly. The patient initially presented to the hospital was increasing shortness of breath associated with productive cough/sputum production as well as elevated temperature. He was admitted and treated for pneumonia. We consulted to see the patient because mildly abnormal troponin. The patient when he was admitted he was started on IV fluid. Subsequently few hours after he went into acute hypoxic respiratory failure and he was diagnosed was pulmonary edema where he was given Lasix with improvement in his symptoms as well as in his oxygenation. September [id number] The patient was seen and evaluated at bedside today. He is having no chest pain at this morning. He stated that the shortness of breath has improved. He continues to be on oxygen. He seems to be overall euvolemic on examination. The patient need to undergo a heart catheterization in the next 24-48 hours to rule out severe CAD giving the abnormal troponin. His pressure has improved significantly. The echo still pending. Objective - Vital Signs Vital signs: Vital Signs Temp 98.2 F 09/24/22 08:00 Pulse 111 H 09/24/22 10:00 Resp 24 09/24/22 10:00 BP 121/65 09/24/22 10:00 Pulse Ox 94 L 09/24/22 10:00 FiO2 50 09/24/22 07:34 Intake & Output 09/23/22 09/24/22 09/24/22 18:59 06:59 18:59 Intake Total 0.375 101.925 Output Total 600 2850 600 Balance -600 -2849.625 -498.075 Intake: Intake, IV Titration 0.375 101.925 Amount Magnesium Sulfate-D5w Pmx 100 1 gm In Dextrose/Water 1 100ml.bag @ 100 mls/hr IVPB Q1H [facility] Rx#: [id number] Nitroglycerin-D5w Pmx 50 0.375 1.925 mg In Dextrose/Water 1 250ml.bag @ 5 MCG/MIN 1.5 mls/hr IV .Q24H [facility] Rx#: [id number] Output: Urine 600 2850 600 Other: Voiding Method Urinal Urinal # Voids 2 1 - Constitutional General appearance: Present: no acute distress - Respiratory Respiratory: bilateral: diminished - Cardiovascular Rhythm: regular Heart sounds: normal: S1 Abnormal Heart Sounds: Present: systolic murmur - Labs CBC & Chem 7: 09/24/22 04:40 09/24/22 04:40 Labs: Abnormal Lab Results - Last 24 Hours (Table) 09/24/22 09/24/22 09/24/22 Range/Units 04:40 04:40 04:40 RBC 3.86 L (4.30-5.90) m/uL Hgb 11.6 L (13.0-17.5) gm/dL Hct 35.0 L (39.0-53.0) % Chloride 110 H (98-107) mmol/L BUN 22 H (9-20) mg/dL Troponin I 0.074 H* (0.000-0.034) ng/mL Total Protein 6.0 L (6.3-8.2) g/dL Albumin 3.4 L (3.5-5.0) g/dL Microbiology - Last 24 Hours (Table) 09/23/22 13:25 Gram Stain - Preliminary Sputum Sputum Culture - Preliminary 09/22/22 11:13 Blood Culture Gram Stain - Preliminary Blood Blood Culture - Preliminary Coagulase Negative Staph 09/22/22 11:28 Blood Culture Gram Stain - Preliminary Blood 09/22/22 11:13 Blood Culture - Final Blood 09/22/22 11:28 Blood Culture - Final Blood Assessment and Plan Assessment: Assessment Acute hypoxic respiratory failure Evidence of myocardial injury was no evidence of ischemia CAD with prior revascularization Systolic murmur on examination COPD Multiple comorbid conditions Plan Continue the current medical regimen including aspirin and statin and beta velma Consider proceeding with coronary angiogram Follow-up on the echocardiogram
[2022-09-24] MEDS: SYMBICORT 160-4.5 MCG INHALER INHALATION SCH ×2 (10:24→19:09)
--- NOTE | 2022-09-24 10:48 | P.PN ---
Subjective Progress Note Date: 09/24/22 This is a 77-year-old white male with history of multiple medical problems including history of ESBL E. coli pneumonia involving right lower lobe, COPD with FEV1 of 39% at best. history of non-Hodgkin's lymphoma, presently in remission, coronary arteriosclerosis, COPD, hypertension, history of duodenal u lcer, abdominal aortic aneurysm, and previous endovascular stent grafting, patient was seen yesterday in the walk-in clinic in [place], and he was complaining of high temp as high as 103.7. Some cough, but no shortness of breath, no chest pain, no hemoptysis. Considering his history and considering his symptoms, patient was advised to go to the ER. Seen in the ER yesterday, and the chest x-ray showed significant infiltrate involving the left midlung and left lower lobe. Patient was admitted, and this consult was initiated. Looking back at the patient previous bronchoscopy for right lower lobe pneumonia, patient had ESBL E. coli cultured on the BAL, hence I went ahead and recommended that the patient goes on Merrem empirically is set of other antibiotics. In the meantime we are recommending sputum cultures, which are pending. Labs on admission showed relatively normal WBC count, hemoglobin 12.1, normal electrolytes, abnormal renal profile with creatinine of 1.37, and his pro-calci tonin level was elevated at 1.51 The patient is seen today 09/24/2022 in follow-up in the intensive care unit. He was transferred here early this morning after having acute hypoxemic respiratory failure. Chest x-ray revealed increasing bilateral pulmonary infiltrates. Mild right pleural effusion. Underlying pulmonary fibrosis. He required total of 100 mg of IV Lasix and BiPAP support. He also required initially on nitroglycerin drip. Medicines been transitioned off. His BiPAP was 14/6 and 50% FiO2. No IV fluids currently. He remains on vancomycin and meropenem. Initial blood cultures were positive for coag-negative staph. White count 4.3. Hemoglobin 11.6. Platelets 156. Sodium 142. Potassium 4.1. Chloride 110. BUN 22. Creatinine 1.03. Troponin 0.074. ProBNP 4790. Currently in a -3.5 L balance. Currently on albuterol, Symbicort. He is currently awake, calm, comfortable. Objective - Vital Signs Vital signs: Vital Signs Temp 98.2 F 09/24/22 08:00 Pulse 111 H 09/24/22 10:00 Resp 24 09/24/22 10:00 BP 121/65 09/24/22 10:00 Pulse Ox 94 L 09/24/22 10:00 FiO2 50 09/24/22 07:34 Intake & Output 09/23/22 09/24/22 09/24/22 18:59 06:59 18:59 Intake Total 0.375 101.925 Output Total 600 2850 600 Balance -600 -2849.625 -498.075 Intake: Intake, IV Titration 0.375 101.925 Amount Magnesium Sulfate-D5w Pmx 100 1 gm In Dextrose/Water 1 100ml.bag @ 100 mls/hr IVPB Q1H [facility] Rx#: [id number] Nitroglycerin-D5w Pmx 50 0.375 1.925 mg In Dextrose/Water 1 250ml.bag @ 5 MCG/MIN 1.5 mls/hr IV .Q24H [facility] Rx#: [id number] Output: Urine 600 2850 600 Other: Voiding Method Urinal Urinal # Voids 2 1 - Exam GENERAL EXAM: Alert, pleasant 77-year-old male, on BiPAP 14/650% FiO2, fairly comfortable in no apparent distress. HEAD: Normocephalic. EYES: Normal reaction of pupils, equal size. NOSE: Clear with pink turbinates. THROAT: No erythema or exudates. NECK: No masses, no JVD. CHEST: No chest wall deformity. LUNGS: Equal air entry with crackles in the bilateral bases. CVS: S1 and S2 normal with no audible murmur, regular rhythm. ABDOMEN: No hepatosplenomegaly, normal bowel sounds, no guarding or rigidity. SPINE: No scoliosis or deformity SKIN: No rashes CENTRAL NERVOUS SYSTEM: No focal deficits, tone is normal in all 4 extremities. EXTREMITIES: There is no peripheral edema. No clubbing, no cyanosis. Peripheral pulses are intact. - Labs CBC & Chem 7: 09/24/22 04:40 09/24/22 04:40 Labs: Abnormal Lab Results - Last 24 Hours (Table) 09/24/22 09/24/22 09/24/22 Range/Units 04:40 04:40 04:40 RBC 3.86 L (4.30-5.90) m/uL Hgb 11.6 L (13.0-17.5) gm/dL Hct 35.0 L (39.0-53.0) % Chloride 110 H (98-107) mmol/L BUN 22 H (9-20) mg/dL Troponin I 0.074 H* (0.000-0.034) ng/mL Total Protein 6.0 L (6.3-8.2) g/dL Albumin 3.4 L (3.5-5.0) g/dL Microbiology - Last 24 Hours (Table) 09/23/22 13:25 Gram Stain - Preliminary Sputum Sputum Culture - Preliminary 09/22/22 11:13 Blood Culture Gram Stain - Preliminary Blood Blood Culture - Preliminary Coagulase Negative Staph 09/22/22 11:28 Blood Culture Gram Stain - Preliminary Blood 09/22/22 11:13 Blood Culture - Final Blood 09/22/22 11:28 Blood Culture - Final Blood Assessment and Plan Assessment: Acute hypoxemic respiratory failure secondary to an acute exacerbation of suspected systolic versus diastolic congestive heart failure/pulmonary edema. Requiring BiPAP support 14/6 and 50% FiO2 and transferred to the intensive care unit early this morning 09/24/2022. Received a total of 100 mg of IV Lasix with 3.5 L diuresed and improved. Echocardiogram pending. Troponin leak with evidence of myocardial injury without ischemia Acute healthcare acquired pneumonia, suspect ESBL E. coli pneumonia unless for otherwise. Currently on meropenem and vancomycin History of severe underlying COPD presently inactive. Chronic dyspnea, class III secondary to COPD. FEV1 value 39% of predicted Chronic and ongoing tobacco dependence of greater than 50 years Coronary artery disease with previous coronary artery bypass grafting Hypertension Hyperlipidemia Non-Hodgkin's lymphoma, presently in remission, patient has received rituxin Carotid atherosclerosis with previous right carotid endarterectomy Abdominal aortic aneurysm with previous endovascular stent grafting History of duodenal ulcer with hemorrhage Dulce Maria: The patient was seen and evaluated Chest x-ray, medications and labs reviewed Currently on BiPAP 14/6 and 50% FiO2 Could be transitioned back to nasal cannula Titrate the FiO2 as tolerated Continue bronchodilators Continue vancomycin and meropenem for now Echocardiogram pending Cardiology considering cardiac catheterization once stable We will continue to follow and make further recommendations based on his clinica l status I have personally seen and examined the patient, performed the documentation and the assessment and plan as written. Number of minutes spent on the visit: 10.
--- NOTE | 2022-09-24 11:40 | P.PN ---
Subjective Progress Note Date: 09/24/22 patient is a 77-year-old gentleman with past medical history significant for COPD who presented to the ER because of worsening shortness of breath for the last few days. Patient was complaining of shortness of breath on exertion. Complaining of productive cough, phlegm was brownish in color. This morning patient had fever of 103. Denied any chest pain. Denies any nausea, vomiting or abdominal pain. Patient was worked up in the ER, initial white count was 5.5, hemoglobin 12.1, sodium of 134, potassium 4.3, BUN 29, creatinine 1.37. Chest x-ray showed new left lung airspace opacity concerning for pneumonia. Patient was started on IV antibiotics and admitted to hospitalist service 09/23. Patient seen and examined. States cough has improved, still bringing up phlegm. Denies any lightheadedness or dizziness. Vital signs stable 09/24. Patient seen and examined. Patient went into flash pulmonary edema overnight, had to be placed on BiPAP and nitro drip. Currently off the BiPAP, on 4 L of oxygen REVIEW OF SYSTEMS: CONSTITUTIONAL: No fever, no malaise,. CARDIOVASCULAR: No chest pain, no palpitations, no syncope. PULMONARY: Denies any shortness of breath GASTROINTESTINAL: No diarrhea, no nausea, no vomiting, no abdominal pain. NEUROLOGICAL: No headaches, no weakness, PHYSICAL EXAMINATION: GENERAL: The patient is alert and oriented x3, not in any acute distress. Well developed, well nourished. HEENT: Pupils are round and equally reacting to light. EOMI. No scleral icterus. No conjunctival pallor. Normocephalic, atraumatic. No pharyngeal erythema. No thyromegaly. CARDIOVASCULAR: S1 and S2 present. No murmurs, rubs, or gallops. PULMONARY: Diminished breath sounds at the bases bilaterally ABDOMEN: Soft, nontender, nondistended, normoactive bowel sounds. No palpable organomegaly. MUSCULOSKELETAL: No joint swelling or deformity. EXTREMITIES: No cyanosis, clubbing, or pedal edema. NEUROLOGICAL: Gross neurological examination did not reveal any focal deficits. SKIN: No rashes. Assessment and plan Assessment and plan Bacterial pneumonia Chronic hypoxic respiratory failure COPD Hypertension Elevated troponin Plan; Monitor vital signs Monitor CBC Continue oxygen supplementation Continue use of BiPAP as needed Continue telemetry monitoring Follow-up on blood cultures Continue pharmacy dose vancomycin and meropenem Continue breathing treatments Follow-up on pulmonary recommendations Follow-up cardiology recommendations, cardiology planning to do cardiac cath in the next 24-48 hours Follow-up on ID recommendations Objective - Vital Signs Vital signs: Vital Signs Temp 98.2 F 09/24/22 08:00 Pulse 92 09/24/22 10:40 Resp 24 09/24/22 10:00 BP 121/65 09/24/22 10:00 Pulse Ox 94 L 09/24/22 10:00 FiO2 50 09/24/22 07:34 Intake & Output 09/23/22 09/24/22 09/24/22 18:59 06:59 18:59 Intake Total 0.375 101.925 Output Total 600 2850 600 Balance -600 -2849.625 -498.075 Intake: Intake, IV Titration 0.375 101.925 Amount Magnesium Sulfate-D5w Pmx 100 1 gm In Dextrose/Water 1 100ml.bag @ 100 mls/hr IVPB Q1H [facility] Rx#: [id number] Nitroglycerin-D5w Pmx 50 0.375 1.925 mg In Dextrose/Water 1 250ml.bag @ 5 MCG/MIN 1.5 mls/hr IV .Q24H [facility] Rx#: [id number] Output: Urine 600 2850 600 Other: Voiding Method Urinal Urinal # Voids 2 1 - Labs CBC & Chem 7: 09/24/22 04:40 09/24/22 04:40 Labs: Abnormal Lab Results - Last 24 Hours (Table) 09/24/22 09/24/22 09/24/22 Range/Units 04:40 04:40 04:40 RBC 3.86 L (4.30-5.90) m/uL Hgb 11.6 L (13.0-17.5) gm/dL Hct 35.0 L (39.0-53.0) % Chloride 110 H (98-107) mmol/L BUN 22 H (9-20) mg/dL Troponin I 0.074 H* (0.000-0.034) ng/mL Total Protein 6.0 L (6.3-8.2) g/dL Albumin 3.4 L (3.5-5.0) g/dL Microbiology - Last 24 Hours (Table) 09/23/22 13:25 Gram Stain - Preliminary Sputum Sputum Culture - Preliminary 09/22/22 11:13 Blood Culture Gram Stain - Preliminary Blood Blood Culture - Preliminary Coagulase Negative Staph 09/22/22 11:28 Blood Culture Gram Stain - Preliminary Blood 09/22/22 11:13 Blood Culture - Final Blood 09/22/22 11:28 Blood Culture - Final Blood
[2022-09-24] MEDS: lisinopriL 10 MG TAB PO SCH (13:45)
[2022-09-24] MEDS: LACTOBACILLUS ACIDOPH & BULGAR 1 EACH PACKET PO SCH (13:47)
[2022-09-24] MEDS: MULTIVITAMINS, THERA 1 EACH TAB PO SCH (13:47)
[2022-09-24] MEDS: MEROPENEM 1 GM in SODIUM CHLORIDE 0.9% 100 ML IVPB SCH (17:29)
--- NOTE | 2022-09-24 18:05 | CA ---
Transthoracic Echo Report Name: Dl Calvin Age: 77 Gender: M : 1945 Exam Date: 09/24/2022 08:41 Exam Location: [facility] Ht (in): 66 Wt (lb): 135 Ordering Physician: Landy Ron Attending/Referring Phys: Solution Analyst Vanessa Najera RDCS Procedure CPT: Indications: positive trops Cardiac Hx: Technical Quality: Fair Contrast 1: Total Dose (mL): Contrast 2: Total Dose (mL): MEASUREMENTS (Male / Female) Normal Values 2D ECHO LV Diastolic Diameter PLAX 4.3 cm 4.2 - 5.9 / 3.9 - 5.3 cm LV Systolic Diameter PLAX 3.9 cm IVS Diastolic Thickness 1.2 cm 0.6 - 1.0 / 0.6 - 0.9 cm LVPW Diastolic Thickness 1.3 cm 0.6 - 1.0 / 0.6 - 0.9 cm LV Relative Wall Thickness 0.6 RV Internal Dim ED PLAX 4.1 cm LVOT Diameter 1.8 cm LA Volume 78.4 cm??? 18 - 58 / 22 - 52 cm??? M-MODE Aortic Root Diameter MM 2.9 cm LA Systolic Diameter MM 4.6 cm LA Ao Ratio MM 1.6 AV Cusp Separation MM 1.1 cm DOPPLER AV Peak Velocity 289.1 cm/s AV Peak Gradient 33.4 mmHg AV Mean Velocity 205.9 cm/s AV Mean Gradient 19.0 mmHg AV Velocity Time Integral 52.7 cm LVOT Peak Velocity 112.8 cm/s LVOT Peak Gradient 5.1 mmHg AV Area Cont Eq pk 1.0 cm??? MV Area PHT 3.9 cm??? Mitral E Point Velocity 91.0 cm/s Mitral A Point Velocity 113.0 cm/s Mitral E to A Ratio 0.8 MV Deceleration Time 194.4 ms MV E' Velocity 7.5 cm/s Mitral E to MV E' Ratio 12.1 TR Peak Velocity 292.9 cm/s TR Peak Gradient 34.3 mmHg Right Ventricular Systolic Press 39.1 mmHg FINDINGS Left Ventricle Abnormal (paradoxical) septal motion consistent with postoperative state. Mildly reduced global left ventricular systolic function. Left ventricular ejection fraction is estimated at 40-45 %. Right Ventricle Moderate right ventricular dilatation. Mild pulmonary hypertension. Right Atrium Normal right atrial size. Left Atrium Moderate left atrial dilatation. Mitral Valve Structurally normal mitral valve. Jifn-[id number] mitral regurgitation. Aortic Valve Moderate aortic stenosis with a peak gradient of 33.4 mmHg and a mean gradient of 19 mmHg. No aortic regurgitation. Tricuspid Valve Mild tricuspid regurgitation. Pulmonic Valve Mild pulmonic regurgitation. Pericardium No pericardial effusion. Aorta Normal size aortic root and proximal ascending aorta. CONCLUSIONS Reduced LV systolic function Anteroseptal hypokinesis extending into the apex, severe Previewed by: Dr. Gualberto Ratliff MD (Electronically Signed) Final Date: 24 September 2022 18:04
--- NOTE | 2022-09-24 20:16 | P.PN ---
Subjective Progress Note Date: 09/24/22 Principal diagnosis: Pneumonia and bacteremia Patient is 77 year old male with a past medical history significant for non-Hodgkin lymphoma history of COPD hypertension patient was admitted back in June 2022 in this patient status post bronchoscopy culture were positive for ESBL E. coli , patient who presented to hospital visit shortness breath cough and fever concerning for pneumonia did have a positive blood culture. On today's evaluation that is 09/24/2022, the patient is afebrile, the patient did have worsening of respiratory distress requiring transfer to the ICU patient has been diuresed and is currently breathing more comfortably nasal cannula oxygen patient denies having any chest pain, occasional cough and sputum production no nausea no vomiting no abdominal pain or diarrhea Objective - Vital Signs Vital signs: Vital Signs Temp 98.2 F 09/24/22 08:00 Pulse 96 09/24/22 11:30 Resp 23 09/24/22 11:30 BP 104/53 09/24/22 11:30 Pulse Ox 91 L 09/24/22 11:30 FiO2 50 09/24/22 07:34 Intake & Output 09/23/22 09/24/22 09/24/22 18:59 06:59 18:59 Intake Total 0.375 451.925 Output Total 600 2850 1150 Balance -600 -2849.625 -698.075 Intake: Intake, IV Titration 0.375 201.925 Amount Magnesium Sulfate-D5w Pmx 200 1 gm In Dextrose/Water 1 100ml.bag @ 100 mls/hr IVPB Q1H [facility] Rx#: [id number] Nitroglycerin-D5w Pmx 50 0.375 1.925 mg In Dextrose/Water 1 250ml.bag @ 5 MCG/MIN 1.5 mls/hr IV .Q24H [facility] Rx#: [id number] Oral 250 Output: Urine 600 2850 1150 Other: Voiding Method Urinal Urinal Urinal # Voids 2 1 - Exam GENERAL DESCRIPTION: An elderly male lying in bed in no distress RESPIRATORY SYSTEM: Unlabored breathing , decreased breath sounds at bases HEART: S1 S2 regular rate and rhythm , ABDOMEN: Soft , no tenderness EXTREMITIES: No edema feet - Labs CBC & Chem 7: 09/24/22 04:40 09/24/22 04:40 Labs: Abnormal Lab Results - Last 24 Hours (Table) 09/24/22 09/24/2209/24/23 Range/Units 04:40 04:40 04:40 RBC 3.86 L (4.30-5.90) m/uL Hgb 11.6 L (13.0-17.5) gm/dL Hct 35.0 L (39.0-53.0) % Chloride 110 H (98-107) mmol/L BUN 22 H (9-20) mg/dL Troponin I 0.074 H* (0.000-0.034) ng/mL Total Protein 6.0 L (6.3-8.2) g/dL Albumin 3.4 L (3.5-5.0) g/dL Microbiology - Last 24 Hours (Table) 09/23/22 13:25 Gram Stain - Preliminary Sputum Sputum Culture - Preliminary 09/22/22 11:13 Blood Culture Gram Stain - Preliminary Blood Blood Culture - Preliminary Coagulase Negative Staph 09/22/22 11:28 Blood Culture Gram Stain - Preliminary Blood 09/22/22 11:13 Blood Culture - Final Blood 09/22/22 11:28 Blood Culture - Final Blood Assessment and Plan (1) Bacteremia Current Visit: Yes Status: Acute Code(s): R78.81 - BACTEREMIA SNOMED Code(s): 5649842 (2) Pneumonia involving left lung Current Visit: Yes Status: Acute Code(s): J18.9 - PNEUMONIA, UNSPECIFIED ORGANISM SNOMED Code(s): 396412950 Plan: 1patient is in the hospital with sepsis in this patient who did have a fever hypoxemia evidence of increasing/new infiltrate on the left side concerning for pneumonia in this patient who do have a history of COPD and history of ESBL E. coli pneumonia in June 2022, he will need to cover for resistant gram-posi tive as well as gram-negative pathogen 2patient with a positive blood culture with gram-positive cocci which has been finalized as staph epi likely skin contamination 3sputum cultures are currently pending 4patient to continue with the meropenem adjusted dose to 1 g every 8 hours while waiting for the sputum culture finalized and discontinue vancomycin
[2022-09-24] MEDS: FAMOTIDINE 20 MG TAB PO SCH (20:52)
[2022-09-24] MEDS: ATORVASTATIN 40 MG TAB PO SCH (20:52)
[2022-09-25] MEDS: MEROPENEM 1 GM in SODIUM CHLORIDE 0.9% 100 ML IVPB SCH ×3 (00:25→16:57)
[2022-09-25] MEDS: NITROGLYCERIN-D5W PMX 50 MG in DEXTROSE/WATER 1 250ML.BAG IV SCH ×2 (05:42→23:12)
[2022-09-25 06:23] LABS: Albumin 2.8 g/dL (3.5-5.0); Calcium 7.9 mg/dL (8.4-10.2); Magnesium 1.7 mg/dL (1.6-2.3); Potassium 3.5 mmol/L (3.5-5.1); Total Bilirubin 0.5 mg/dL (0.2-1.3)
[2022-09-25 06:26] LABS: HCT 30.7 % (39.0-53.0); HGB 10.7 gm/dL (13.0-17.5); MCH 30.6 pg (25.0-35.0); MCHC 34.8 g/dL (31.0-37.0); Mean Platelet Volume 8.6; Platelet Count 149 k/uL (150-450); RBC 3.48 m/uL (4.30-5.90); RDW 13.3 % (11.5-15.5); WBC 3.9 k/uL (3.8-10.6)
[2022-09-25] MEDS: PANTOPRAZOLE 40 MG TABLET PO SCH ×2 (06:51→16:57)
[2022-09-25] MEDS: POTASSIUM CHLORIDE ER 20 MEQ TAB.ER PO SCH ×2 (06:51→08:17)
[2022-09-25 07:03] LABS: Band Neutrophils % 1 %; Eosinophils # (M) 0.16 k/uL (0-0.7); Lymphocytes # (M) 1.68 k/uL (1.0-4.8); Monocytes # (M) 0.35 k/uL (0-1.0); Neutrophils % (M) 43 %; Nucleated Red Blood Cells 0 /100 WBC (0-0); Total Cells Counted 100
[2022-09-25] MEDS: SYMBICORT 160-4.5 MCG INHALER INHALATION SCH ×2 (07:44→19:18)
[2022-09-25] MEDS: IPRATROPIUM 0.5 MG/2.5 ML NEBU INHALATION SCH ×4 (07:44→19:19)
[2022-09-25] MEDS: MAGNESIUM SULFATE-D5W PMX 1 GM in DEXTROSE/WATER 1 100ML.BAG IVPB SCH ×2 (08:16→09:45)
[2022-09-25] MEDS: lisinopriL 10 MG TAB PO SCH (08:17)
[2022-09-25] MEDS: LACTOBACILLUS ACIDOPH & BULGAR 1 EACH PACKET PO SCH (08:17)
[2022-09-25] MEDS: FUROSEMIDE 20 MG TAB PO SCH (08:17)
[2022-09-25] MEDS: METOPROLOL SUCCINATE (ER) 25 MG TAB.ER.24H PO SCH (08:17)
[2022-09-25] MEDS: ASPIRIN 81 MG PO SCH (08:17)
[2022-09-25] MEDS: TAMSULOSIN 0.4 MG CAP.ER.24H PO SCH (08:17)
[2022-09-25] MEDS: MULTIVITAMINS, THERA 1 EACH TAB PO SCH (08:18)
--- NOTE | 2022-09-25 10:01 | P.PN ---
Subjective Progress Note Date: 09/25/22 Principal diagnosis: Coronary artery disease This is a 77-year-old gentleman with a past medical history significant for CAD and status post CABG as well as COPD as well as history of non-Hodgkin lymphoma and hypertension and dyslipidemia who follows with Dr. Chan regularly. The patient initially presented to the hospital was increasing shortness of breath associated with productive cough/sputum production as well as elevated temperature. He was admitted and treated for pneumonia. We consulted to see the patient because mildly abnormal troponin. The patient when he was admitted he was started on IV fluid. Subsequently few hours after he went into acute hypoxic respiratory failure and he was diagnosed was pulmonary edema where he was given Lasix with improvement in his symptoms as well as in his oxygenation. September [id number] The patient was seen and evaluated at bedside today. He is having no chest pain at this morning. He stated that the shortness of breath has improved. He continues to be on oxygen. He seems to be overall euvolemic on examination. The patient need to undergo a heart catheterization in the next 24-48 hours to rule out severe CAD giving the abnormal troponin. His pressure has improved significantly. The echo still pending. September 252022 The patient was seen and evaluated this morning. He is hemodynamically stable and seems to be asymptomatic beside shortness of breath. No pain in the chest. He underwent an echo which revealed impaired LV function was EF around 40% with wall motion abnormalities concerning for severe CAD and also moderate aortic stenosis. I advised the patient to undergo a heart catheterization and the patient would like that to be done tomorrow. Objective - Vital Signs Vital signs: Vital Signs Temp 98.4 F 09/25/22 04:00 Pulse 85 09/25/22 07:58 Resp 18 09/25/22 07:00 BP 154/78 09/25/22 07:00 Pulse Ox 98 09/25/22 07:00 FiO2 50 09/24/22 07:34 Intake & Output 09/24/22 09/25/22 09/25/22 18:59 06:59 18:59 Intake Total 717.925 132 440 Output Total 1275 1100 175 Balance -026.759 -849 265 Weight 66.8 kg Intake: IV 66 132 200 Magnesium Sulfate-D5w Pmx 100 1 gm In Dextrose/Water 1 100ml.bag @ 100 mls/hr IVPB Q1H [facility] Rx#: [id number] Meropenem 1 gm In Sodium 66 132 100 Chloride 0.9% 100 ml @ 33 .3 mls/hr IVPB Q8HR [facility] Rx#:[id number] Intake, IV Titration 201.925 Amount Magnesium Sulfate-D5w Pmx 200 1 gm In Dextrose/Water 1 100ml.bag @ 100 mls/hr IVPB Q1H [facility] Rx#: [id number] Nitroglycerin-D5w Pmx 50 1.925 mg In Dextrose/Water 1 250ml.bag @ 5 MCG/MIN 1.5 mls/hr IV .Q24H [facility] Rx#: [id number] Oral 450 240 Output: Urine 1275 1100 175 Other: Voiding Method Urinal Urinal # Voids 1 # Bowel Movements 1 - Constitutional General appearance: Present: no acute distress - Respiratory Respiratory: bilateral: diminished - Cardiovascular Rhythm: regular Heart sounds: normal: S1, S2 Abnormal Heart Sounds: Present: systolic murmur - Labs CBC & Chem 7: 09/25/22 05:48 09/25/22 05:48 Labs: Abnormal Lab Results - Last 24 Hours (Table) 09/25/22 09/25/22 Range/Units 05:48 05:48 RBC 3.48 L (4.30-5.90) m/uL Hgb 10.7 L (13.0-17.5) gm/dL Hct 30.7 L (39.0-53.0) % Plt Count 149 L (150-450) k/uL Sodium 135 L (137-145) mmol/L Calcium 7.9 L (8.4-10.2) mg/dL Total Protein 5.0 L (6.3-8.2) g/dL Albumin 2.8 L (3.5-5.0) g/dL Microbiology - Last 24 Hours (Table) 09/23/22 13:25 Gram Stain - Preliminary Sputum Sputum Culture - Preliminary Assessment and Plan Assessment: Assessment Acute hypoxic respiratory failure Evidence of myocardial injury was no evidence of ischemia CAD with prior revascularization Systolic murmur on examination COPD Multiple comorbid conditions Plan Continue the current medical regimen including aspirin and statin and beta velma Consider proceeding with coronary angiogram Follow-up with the patient
--- NOTE | 2022-09-25 10:40 | P.PN ---
Subjective Progress Note Date: 09/25/22 This is a 77-year-old white male with history of multiple medical problems including history of ESBL E. coli pneumonia involving right lower lobe, COPD with FEV1 of 39% at best. history of non-Hodgkin's lymphoma, presently in remission, coronary arteriosclerosis, COPD, hypertension, history of duodenal u lcer, abdominal aortic aneurysm, and previous endovascular stent grafting, patient was seen yesterday in the walk-in clinic in [place], and he was complaining of high temp as high as 103.7. Some cough, but no shortness of breath, no chest pain, no hemoptysis. Considering his history and considering his symptoms, patient was advised to go to the ER. Seen in the ER yesterday, and the chest x-ray showed significant infiltrate involving the left midlung and left lower lobe. Patient was admitted, and this consult was initiated. Looking back at the patient previous bronchoscopy for right lower lobe pneumonia, patient had ESBL E. coli cultured on the BAL, hence I went ahead and recommended that the patient goes on Merrem empirically is set of other antibiotics. In the meantime we are recommending sputum cultures, which are pending. Labs on admission showed relatively normal WBC count, hemoglobin 12.1, normal electrolytes, abnormal renal profile with creatinine of 1.37, and his pro-calci tonin level was elevated at 1.51 The patient is seen today 09/24/2022 in follow-up in the intensive care unit. He was transferred here early this morning after having acute hypoxemic respiratory failure. Chest x-ray revealed increasing bilateral pulmonary infiltrates. Mild right pleural effusion. Underlying pulmonary fibrosis. He required total of 100 mg of IV Lasix and BiPAP support. He also required initially on nitroglycerin drip. Medicines been transitioned off. His BiPAP was 14/6 and 50% FiO2. No IV fluids currently. He remains on vancomycin and meropenem. Initial blood cultures were positive for coag-negative staph. White count 4.3. Hemoglobin 11.6. Platelets 156. Sodium 142. Potassium 4.1. Chloride 110. BUN 22. Creatinine 1.03. Troponin 0.074. ProBNP 4790. Currently in a -3.5 L balance. Currently on albuterol, Symbicort. He is currently awake, calm, comfortable. The patient is seen today 09/25/2022 in follow-up in the intensive care unit. He is currently resting comfortably in bed. Awake and alert in no acute distress. He is maintaining O2 saturations in the 90s on 3 L/m per nasal cannula. No IV fluids, currently. Initial blood culture positive for coag- negative staph. Sputum culture pending. White count 3.9. Hemoglobin 10.0. Platelets 149. Sodium 135. Potassium 3.5. BUN 18. Creatinine 1.04. He is continued on Symbicort, albuterol, antibiotics in the form of meropenem. He remains on oral diuretics. He may be considered for cardiac catheterization tomorrow. Objective - Vital Signs Vital signs: Vital Signs Temp 98.4 F 09/25/22 04:00 Pulse 85 09/25/22 07:58 Resp 18 09/25/22 07:00 BP 154/78 09/25/22 07:00 Pulse Ox 98 09/25/22 07:00 FiO2 50 09/24/22 07:34 Intake & Output 09/24/22 09/25/22 09/25/22 18:59 06:59 18:59 Intake Total 717.925 132 440 Output Total 1275 1100 175 Balance -557.075 -968 265 Weight 66.8 kg Intake: IV 66 132 200 Magnesium Sulfate-D5w Pmx 100 1 gm In Dextrose/Water 1 100ml.bag @ 100 mls/hr IVPB Q1H [facility] Rx#: [id number] Meropenem 1 gm In Sodium 66 132 100 Chloride 0.9% 100 ml @ 33 .3 mls/hr IVPB Q8HR [facility] Rx#:[id number] Intake, IV Titration 201.925 Amount Magnesium Sulfate-D5w Pmx 200 1 gm In Dextrose/Water 1 100ml.bag @ 100 mls/hr IVPB Q1H [facility] Rx#: [id number] Nitroglycerin-D5w Pmx 50 1.925 mg In Dextrose/Water 1 250ml.bag @ 5 MCG/MIN 1.5 mls/hr IV .Q24H [facility] Rx#: [id number] Oral 450 240 Output: Urine 1275 1100 175 Other: Voiding Method Urinal Urinal # Voids 1 # Bowel Movements 1 - Exam GENERAL EXAM: Alert, pleasant 77-year-old male, on 3 L nasal cannula, comfortable in no apparent distress. HEAD: Normocephalic. EYES: Normal reaction of pupils, equal size. NOSE: Clear with pink turbinates. THROAT: No erythema or exudates. NECK: No masses, no JVD. CHEST: No chest wall deformity. LUNGS: Equal air entry with crackles in the bilateral bases. CVS: S1 and S2 normal with no audible murmur, regular rhythm. ABDOMEN: No hepatosplenomegaly, normal bowel sounds, no guarding or rigidity. SPINE: No scoliosis or deformity SKIN: No rashes CENTRAL NERVOUS SYSTEM: No focal deficits, tone is normal in all 4 extremities. EXTREMITIES: There is no peripheral edema. No clubbing, no cyanosis. Peripheral pulses are intact. - Labs CBC & Chem 7: 09/25/22 05:48 09/25/22 05:48 Labs: Abnormal Lab Results - Last 24 Hours (Table) 09/25/22 09/25/22 Range/Units 05:48 05:48 RBC 3.48 L (4.30-5.90) m/uL Hgb 10.7 L (13.0-17.5) gm/dL Hct 30.7 L (39.0-53.0) % Plt Count 149 L (150-450) k/uL Sodium 135 L (137-145) mmol/L Calcium 7.9 L (8.4-10.2) mg/dL Total Protein 5.0 L (6.3-8.2) g/dL Albumin 2.8 L (3.5-5.0) g/dL Microbiology - Last 24 Hours (Table) 09/23/22 13:25 Gram Stain - Preliminary Sputum Sputum Culture - Preliminary Assessment and Plan Assessment: Acute hypoxemic respiratory failure secondary to an acute exacerbation of systolic congestive heart failure/pulmonary edema. Requiring BiPAP support 14/6 and 50% FiO2 and transferred to the intensive care unit 09/24/2022. Received a total of 100 mg of IV Lasix with 3.5 L diuresed and improved. Currently on 3 L nasal cannula. Echocardiogram reveals impaired left ventricular systolic function with ejection fraction 40-45%. Troponin leak with evidence of myocardial injury without ischemia Acute healthcare acquired pneumonia, pro-calcitonin 1.51, suspect ESBL E. coli pneumonia unless proven otherwise. Currently on meropenem History of severe underlying COPD presently inactive. Chronic dyspnea, class III secondary to COPD. FEV1 value 39% of predicted Chronic and ongoing tobacco dependence of greater than 50 years Coronary artery disease with previous coronary artery bypass grafting Hypertension Hyperlipidemia Non-Hodgkin's lymphoma, presently in remission, patient has received rituxin Carotid atherosclerosis with previous right carotid endarterectomy Abdominal aortic aneurysm with previous endovascular stent grafting History of duodenal ulcer with hemorrhage Dulce Maria: The patient was seen and evaluated Medications and labs reviewed Currently on oxygen at 3 L/m per nasal cannula Titrate the FiO2 as tolerated Continue bronchodilators Continue meropenem for now Remains on oral diuretics Cardiology considering cardiac catheterization once stable We will continue to follow I have personally seen and examined the patient, performed the documentation and the assessment and plan as written. Number of minutes spent on the visit: 10.
--- NOTE | 2022-09-25 11:50 | P.PN ---
Subjective Progress Note Date: 09/25/22 patient is a 77-year-old gentleman with past medical history significant for COPD who presented to the ER because of worsening shortness of breath for the last few days. Patient was complaining of shortness of breath on exertion. Complaining of productive cough, phlegm was brownish in color. This morning patient had fever of 103. Denied any chest pain. Denies any nausea, vomiting or abdominal pain. Patient was worked up in the ER, initial white count was 5.5, hemoglobin 12.1, sodium of 134, potassium 4.3, BUN 29, creatinine 1.37. Chest x-ray showed new left lung airspace opacity concerning for pneumonia. Patient was started on IV antibiotics and admitted to hospitalist service 09/23. Patient seen and examined. States cough has improved, still bringing up phlegm. Denies any lightheadedness or dizziness. Vital signs stable 09/24. Patient seen and examined. Patient went into flash pulmonary edema overnight, had to be placed on BiPAP and nitro drip. Currently off the BiPAP, on 4 L of oxygen REVIEW OF SYSTEMS: CONSTITUTIONAL: No fever, no malaise,. CARDIOVASCULAR: No chest pain, no palpitations, no syncope. PULMONARY: Denies any shortness of breath GASTROINTESTINAL: No diarrhea, no nausea, no vomiting, no abdominal pain. NEUROLOGICAL: No headaches, no weakness, PHYSICAL EXAMINATION: GENERAL: The patient is alert and oriented x3, not in any acute distress. Well developed, well nourished. HEENT: Pupils are round and equally reacting to light. EOMI. No scleral icterus. No conjunctival pallor. Normocephalic, atraumatic. No pharyngeal erythema. No thyromegaly. CARDIOVASCULAR: S1 and S2 present. No murmurs, rubs, or gallops. PULMONARY: Diminished breath sounds at the bases bilaterally ABDOMEN: Soft, nontender, nondistended, normoactive bowel sounds. No palpable organomegaly. MUSCULOSKELETAL: No joint swelling or deformity. EXTREMITIES: No cyanosis, clubbing, or pedal edema. NEUROLOGICAL: Gross neurological examination did not reveal any focal deficits. SKIN: No rashes. Assessment and plan Bacterial pneumonia Chronic hypoxic respiratory failure COPD Hypertension Elevated troponin Cardiomyopathy Moderate aortic stenosis Plan; Monitor vital signs Monitor CBC Continue oxygen supplementation Continue telemetry monitoring Echo revealed impaired LV function was EF around 40% with wall motion abnormalities concerning for severe CAD and also moderate aortic stenosis Follow-up on blood cultures Continue meropenem Continue breathing treatments Continue, aspirin, statin, beta velma Follow-up on pulmonary recommendations Follow-up cardiology recommendations, cardiology planning to do cardiac cath in the next 24-48 hours Follow-up on ID recommendations Objective - Vital Signs Vital signs: Vital Signs Temp 98.4 F 09/25/22 04:00 Pulse 85 09/25/22 07:58 Resp 18 09/25/22 07:00 BP 154/78 09/25/22 07:00 Pulse Ox 98 09/25/22 07:00 FiO2 50 09/24/22 07:34 Intake & Output 09/24/22 09/25/22 09/25/22 18:59 06:59 18:59 Intake Total 717.925 132 440 Output Total 1275 1100 175 Balance -137.076 -968 265 Weight 66.8 kg Intake: IV 66 132 200 Magnesium Sulfate-D5w Pmx 100 1 gm In Dextrose/Water 1 100ml.bag @ 100 mls/hr IVPB Q1H [facility] Rx#: [id number] Meropenem 1 gm In Sodium 66 132 100 Chloride 0.9% 100 ml @ 33 .3 mls/hr IVPB Q8HR [facility] Rx#:[id number] Intake, IV Titration 201.925 Amount Magnesium Sulfate-D5w Pmx 200 1 gm In Dextrose/Water 1 100ml.bag @ 100 mls/hr IVPB Q1H [facility] Rx#: [id number] Nitroglycerin-D5w Pmx 50 1.925 mg In Dextrose/Water 1 250ml.bag @ 5 MCG/MIN 1.5 mls/hr IV .Q24H [facility] Rx#: [id number] Oral 450 240 Output: Urine 1275 1100 175 Other: Voiding Method Urinal Urinal # Voids 1 # Bowel Movements 1 - Labs CBC & Chem 7: 09/25/22 05:48 09/25/22 05:48 Labs: Abnormal Lab Results - Last 24 Hours (Table) 09/25/22 09/25/22 Range/Units 05:48 05:48 RBC 3.48 L (4.30-5.90) m/uL Hgb 10.7 L (13.0-17.5) gm/dL Hct 30.7 L (39.0-53.0) % Plt Count 149 L (150-450) k/uL Sodium 135 L (137-145) mmol/L Calcium 7.9 L (8.4-10.2) mg/dL Total Protein 5.0 L (6.3-8.2) g/dL Albumin 2.8 L (3.5-5.0) g/dL Microbiology - Last 24 Hours (Table) 09/23/22 13:25 Gram Stain - Preliminary Sputum Sputum Culture - Preliminary
--- NOTE | 2022-09-25 15:08 | CDI ---
Documentation Clarification Form Date: 09/25/2022 2:33:36 PM From: Beena Quintana RN CCDS Admit Date: 09/22/2022 4:01:00 PM Patient Name: Dl Calvin Visit Number: [id number] Discharge Date: ATTENTION: The Clinical Documentation Specialists (CDI) and [facility] Coding Staff appreciate your assistance in clarifying documentation. Please respond to the clarification below the line at the bottom and electronically sign. The CDI & [facility] Coding staff will review the response and follow-up if needed. Please note: Queries are made part of the Legal Health Record. If you have any questions, please contact the author of this message via ITS. Dr. Ezra Zafar The patient presented with the following clinical indicators. Additional clarification regarding the etiology/cause of the clinical indicators is requested. History/Risk Factors: 77-year-old male presents to the ED for worsening shortness of breath and productive cough. Medical History: Cancer, COPD, HTN, ESBL positive culture 06/19/22. Clinical Indicators: Admitting diagnosis: Bacterial pneumonia LABS: 09/23 Wbc 5.5; Neutrophils 1.10 Blood cultures: 09/22 Coagulase negative Staph; Micrococcus Vitals signs: 09/22 B/P 153/66; HR 120; Temp 100 F Oral; RR 30; SpO2 93% ID consult, 09/23: Patient is in the hospital with sepsis in the patient who did have fever hypoxemia evidence of increasing new infiltrate on the left side concerning for pneumonia in this patient who do have a history of COPD and history ESBL E.coli pneumonia in June of 2022. ID note, 09/24: Patient with a positive blood culture with gram positive cocci which has been finalized as staph epi likely skin contamination. Treatment: ID Consult: See above Antibiotics: 09/22 Azithromycin IVPB x 1; 09/22 Cefepime IVPB x 1; 09/23 Cefepime IVPB Q8HR one dose; 09/23 Meropenem IVPB Q12HR x 2 doses; 09/24 Meropenem IVPB Q8HR IV Bolus: 09/22 0.9NS 1L bolus; In your professional opinion, please clarify if these findings signify one of the following conditions: [ x ] Sepsis POA [ ] Sepsis ruled out [ ] Other, please specify [ ] Unable to determine SIRS Criteria: 2 or more of the following may indicate SIRS -Temperature < 96.8F (36C) or > 101.0F (38.3C) -Heart Rate > 90 bpm -Respiratory Rate > 20 breaths/min or PaCO2 < 32 mmHg -White Blood Cell Count > 12,000 or < 4,000 cells/mm3 or > 10% bands (Template Last Reviewed: October 2020) BABARD
[2022-09-25] MEDS ORDERED: Potassium Replacement Protocol 1 EACH MISC MISCELLANE PRN (15:22)
[2022-09-25 16:13] LABS: Magnesium 2.2 mg/dL (1.6-2.3)
[2022-09-25] MEDS: FAMOTIDINE 20 MG TAB PO SCH (20:19)
[2022-09-25] MEDS: ATORVASTATIN 40 MG TAB PO SCH (20:19)
--- NOTE | 2022-09-25 21:14 | P.PN ---
Subjective Progress Note Date: 09/25/22 Principal diagnosis: Pneumonia and bacteremia Patient is 77 year old male with a past medical history significant for non-Hodgkin lymphoma history of COPD hypertension patient was admitted back in June 2022 in this patient status post bronchoscopy culture were positive for ESBL E. coli , patient who presented to hospital visit shortness breath cough and fever concerning for pneumonia did have a positive blood culture. On today's evaluation that is 09/25/2022, the patient remains to be afebrile, the patient breathing comfortably and is down to 4 L nasal cannula, the patient denies having any chest pain or worsening cough or sputum production no abdominal pain no diarrhea Objective - Vital Signs Vital signs: Vital Signs Temp 98.4 F 09/25/22 04:00 Pulse 85 09/25/22 07:58 Resp 18 09/25/22 07:00 BP 154/78 09/25/22 07:00 Pulse Ox 98 09/25/22 07:00 FiO2 50 09/24/22 07:34 Intake & Output 09/24/22 09/25/22 09/25/22 18:59 06:59 18:59 Intake Total 717.925 132 440 Output Total 1275 1100 175 Balance -557.075 968 265 Weight 66.8 kg Intake: IV 66 132 200 Magnesium Sulfate-D5w Pmx 100 1 gm In Dextrose/Water 1 100ml.bag @ 100 mls/hr IVPB Q1H [facility] Rx#: [id number] Meropenem 1 gm In Sodium 66 132 100 Chloride 0.9% 100 ml @ 33 .3 mls/hr IVPB Q8HR [facility] Rx#:[id number] Intake, IV Titration 201.925 Amount Magnesium Sulfate-D5w Pmx 200 1 gm In Dextrose/Water 1 100ml.bag @ 100 mls/hr IVPB Q1H [facility] Rx#: [id number] Nitroglycerin-D5w Pmx 50 1.925 mg In Dextrose/Water 1 250ml.bag @ 5 MCG/MIN 1.5 mls/hr IV .Q24H [facility] Rx#: [id number] Oral 450 240 Output: Urine 1275 1100 175 Other: Voiding Method Urinal Urinal # Voids 1 # Bowel Movements 1 - Exam GENERAL DESCRIPTION: An elderly male lying in bed in no distress RESPIRATORY SYSTEM: Unlabored breathing , decreased breath sounds at bases HEART: S1 S2 regular rate and rhythm , ABDOMEN: Soft , no tenderness EXTREMITIES: No edema feet - Labs CBC & Chem 7: 09/25/22 05:48 09/25/22 15:48 Labs: Abnormal Lab Results - Last 24 Hours (Table) 09/25/22 09/25/22 Range/Units 05:48 05:48 RBC 3.48 L (4.30-5.90) m/uL Hgb 10.7 L (13.0-17.5) gm/dL Hct 30.7 L (39.0-53.0) % Plt Count 149 L (150-450) k/uL Sodium 135 L (137-145) mmol/L Calcium 7.9 L (8.4-10.2) mg/dL Total Protein 5.0 L (6.3-8.2) g/dL Albumin 2.8 L (3.5-5.0) g/dL Microbiology - Last 24 Hours (Table) 09/23/22 13:25 Gram Stain - Preliminary Sputum Sputum Culture - Preliminary Assessment and Plan (1) Bacteremia Current Visit: Yes Status: Acute Code(s): R78.81 - BACTEREMIA SNOMED Code(s): 4973335 (2) Pneumonia involving left lung Current Visit: Yes Status: Acute Code(s): J18.9 - PNEUMONIA, UNSPECIFIED ORGANISM SNOMED Code(s): 984042453 Plan: 1patient is in the hospital with sepsis in this patient who did have a fever hypoxemia evidence of increasing/new infiltrate on the left side concerning for pneumonia in this patient who do have a history of COPD and history of ESBL E. coli pneumonia in June 2022, 2patient with a positive blood culture with gram-positive cocci which has been finalized as staph epi likely skin contamination 3sputum cultures are so far negative for resistant pathogen 4we will discontinue meropenem as for resistant organisms in the sputum culture and start the patient on Rocephin 2 g daily to cover for underlying pneumonia Time with Patient: Less than 30
[2022-09-26] MEDS: PANTOPRAZOLE 40 MG TABLET PO SCH ×2 (06:47→17:24)
--- NOTE | 2022-09-26 07:36 | P.PN ---
Subjective Progress Note Date: 09/26/22 Principal diagnosis: Coronary artery disease This is a 77-year-old gentleman with a past medical history significant for CAD and status post CABG as well as COPD as well as history of non-Hodgkin lymphoma and hypertension and dyslipidemia who follows with Dr. Chan regularly. The patient initially presented to the hospital was increasing shortness of breath associated with productive cough/sputum production as well as elevated temperature. He was admitted and treated for pneumonia. We consulted to see the patient because mildly abnormal troponin. The patient when he was admitted he was started on IV fluid. Subsequently few hours after he went into acute hypoxic respiratory failure and he was diagnosed was pulmonary edema where he was given Lasix with improvement in his symptoms as well as in his oxygenation. September 242022 The patient was seen and evaluated at bedside today. He is having no chest pain at this morning. He stated that the shortness of breath has improved. He continues to be on oxygen. He seems to be overall euvolemic on examination. The patient need to undergo a heart catheterization in the next 24-48 hours to rule out severe CAD giving the abnormal troponin. His pressure has improved significantly. The echo still pending. September 252022 The patient was seen and evaluated this morning. He is hemodynamically stable and seems to be asymptomatic beside shortness of breath. No pain in the chest. He underwent an echo which revealed impaired LV function was EF around 40% with wall motion abnormalities concerning for severe CAD and also moderate aortic stenosis. I advised the patient to undergo a heart catheterization and the patient would like that to be done tomorrow. September 262022 The patient was seen and evaluated this morning. He remains stable from the cardiovascular standpoint of view. He continues to have shortness of breath with exertion but no symptoms of chest pain or chest discomfort. The plan is to pursue a heart catheterization later on today Objective - Vital Signs Vital signs: Vital Signs Temp 98.1 F 09/26/22 00:00 Pulse 72 09/26/22 07:00 Resp 15 09/26/22 07:00 BP 120/68 09/26/22 07:00 Pulse Ox 98 09/26/22 07:00 FiO2 50 09/24/22 07:34 Intake & Output 09/25/22 09/26/22 09/26/22 18:59 06:59 18:59 Intake Total 1588 Output Total 1250 600 Balance 338 -600 Weight 66.2 kg Intake: IV 300 Magnesium Sulfate-D5w Pmx 100 1 gm In Dextrose/Water 1 100ml.bag @ 100 mls/hr IVPB Q1H [facility] Rx#: [id number] Meropenem 1 gm In Sodium 200 Chloride 0.9% 100 ml @ 33 .3 mls/hr IVPB Q8HR [facility] Rx#:[id number] Intake, IV Titration 100 Amount Magnesium Sulfate-D5w Pmx 100 1 gm In Dextrose/Water 1 100ml.bag @ 100 mls/hr IVPB Q1H [facility] Rx#: [id number] Oral 1188 Output: Urine 1250 600 Other: Voiding Method Urinal Urinal # Voids 0 1 # Bowel Movements 1 ABP, PAP, CO, CI - Last Documented Arterial Blood Pressure 99/45 - Constitutional General appearance: Present: no acute distress - Respiratory Respiratory: bilateral: diminished - Cardiovascular Rhythm: regular - Labs CBC & Chem 7: 09/25/22 05:48 09/25/22 15:48 Labs: Microbiology - Last 24 Hours (Table) 09/22/22 11:28 Blood Culture Gram Stain - Preliminary Blood Blood Culture - Preliminary Coagulase Negative Staph Micrococcus species 09/23/22 13:25 Gram Stain - Final Sputum Sputum Culture - Final Assessment and Plan Assessment: Assessment Acute hypoxic respiratory failure Evidence of myocardial injury was no evidence of ischemia CAD with prior revascularization Systolic murmur on examination COPD Multiple comorbid conditions Plan Continue the current medical regimen including aspirin and statin and beta velma Consider proceeding with coronary angiogram Follow-up with the patient
[2022-09-26] MEDS: IPRATROPIUM 0.5 MG/2.5 ML NEBU INHALATION SCH ×4 (07:53→20:24)
[2022-09-26] MEDS: SYMBICORT 160-4.5 MCG INHALER INHALATION SCH ×2 (07:54→20:25)
[2022-09-26 08:12] LABS: Albumin 2.9 g/dL (3.5-5.0); Calcium 8.5 mg/dL (8.4-10.2); Magnesium 1.7 mg/dL (1.6-2.3); Potassium 4.4 mmol/L (3.5-5.1); Total Bilirubin 0.4 mg/dL (0.2-1.3); Total Protein 5.2 g/dL (6.3-8.2)
[2022-09-26 08:24] LABS: HCT 32.5 % (39.0-53.0); HGB 11.3 gm/dL (13.0-17.5); MCH 30.6 pg (25.0-35.0); MCHC 34.7 g/dL (31.0-37.0); MCV 88.4 fL (80.0-100.0); Mean Platelet Volume 8.7; Platelet Count 160 k/uL (150-450); RBC 3.68 m/uL (4.30-5.90); RDW 13.1 % (11.5-15.5); WBC 4.7 k/uL (3.8-10.6)
[2022-09-26] MEDS: TAMSULOSIN 0.4 MG CAP.ER.24H PO SCH (08:58)
[2022-09-26] MEDS: ASPIRIN 81 MG PO SCH (08:58)
[2022-09-26] MEDS: METOPROLOL SUCCINATE (ER) 25 MG TAB.ER.24H PO SCH (08:58)
[2022-09-26] MEDS: FUROSEMIDE 20 MG TAB PO SCH (08:58)
[2022-09-26] MEDS: lisinopriL 10 MG TAB PO SCH (08:58)
[2022-09-26] MEDS: MULTIVITAMINS, THERA 1 EACH TAB PO SCH (08:58)
[2022-09-26] MEDS: LACTOBACILLUS ACIDOPH & BULGAR 1 EACH PACKET PO SCH (08:59)
--- NOTE | 2022-09-26 10:21 | P.PN ---
Subjective Progress Note Date: 09/26/22 This is a 77-year-old white male with history of multiple medical problems including history of ESBL E. coli pneumonia involving right lower lobe, COPD with FEV1 of 39% at best. history of non-Hodgkin's lymphoma, presently in remission, coronary arteriosclerosis, COPD, hypertension, history of duodenal u lcer, abdominal aortic aneurysm, and previous endovascular stent grafting, patient was seen yesterday in the walk-in clinic in [place], and he was complaining of high temp as high as 103.7. Some cough, but no shortness of breath, no chest pain, no hemoptysis. Considering his history and considering his symptoms, patient was advised to go to the ER. Seen in the ER yesterday, and the chest x-ray showed significant infiltrate involving the left midlung and left lower lobe. Patient was admitted, and this consult was initiated. Looking back at the patient previous bronchoscopy for right lower lobe pneumonia, patient had ESBL E. coli cultured on the BAL, hence I went ahead and recommended that the patient goes on Merrem empirically is set of other antibiotics. In the meantime we are recommending sputum cultures, which are pending. Labs on admission showed relatively normal WBC count, hemoglobin 12.1, normal electrolytes, abnormal renal profile with creatinine of 1.37, and his pro-calci tonin level was elevated at 1.51 The patient is seen today 09/24/2022 in follow-up in the intensive care unit. He was transferred here early this morning after having acute hypoxemic respiratory failure. Chest x-ray revealed increasing bilateral pulmonary infiltrates. Mild right pleural effusion. Underlying pulmonary fibrosis. He required total of 100 mg of IV Lasix and BiPAP support. He also required initially on nitroglycerin drip. Medicines been transitioned off. His BiPAP was 14/6 and 50% FiO2. No IV fluids currently. He remains on vancomycin and meropenem. Initial blood cultures were positive for coag-negative staph. White count 4.3. Hemoglobin 11.6. Platelets 156. Sodium 142. Potassium 4.1. Chloride 110. BUN 22. Creatinine 1.03. Troponin 0.074. ProBNP 4790. Currently in a -3.5 L balance. Currently on albuterol, Symbicort. He is currently awake, calm, comfortable. The patient is seen today 09/25/2022 in follow-up in the intensive care unit. He is currently resting comfortably in bed. Awake and alert in no acute distress. He is maintaining O2 saturations in the 90s on 3 L/m per nasal cannula. No IV fluids, currently. Initial blood culture positive for coag- negative staph. Sputum culture pending. White count 3.9. Hemoglobin 10.0. Platelets 149. Sodium 135. Potassium 3.5. BUN 18. Creatinine 1.04. He is continued on Symbicort, albuterol, antibiotics in the form of meropenem. He remains on oral diuretics. He may be considered for cardiac catheterization tomorrow. The patient is seen today 09/26/2022 in follow-up in the intensive care unit. He is currently resting quite comfortably in bed. Awake and alert in no acute distress. He is maintaining good O2 saturations in the 90s on 4 L/m per nasal cannula. No IV fluids currently. He is continued on Symbicort and Ventolin. Antibiotics in the form of ceftriaxone. Oral diuretics. He is scheduled for a heart catheterization this afternoon. White count 4.7. Hemoglobin 11.3. Sodium 135. Potassium 4.4. Glucose 140. AST 26. ALT 24. Currently in a -1.5 L balance. Sputum culture revealed no growth. Blood cultures with coag- negative staph, micrococcus species preliminary. Objective - Vital Signs Vital signs: Vital Signs Temp 98.1 F 09/26/22 00:00 Pulse 91 09/26/22 10:00 Resp 22 09/26/22 10:00 BP 127/53 09/26/22 10:00 Pulse Ox 92 L 09/26/22 10:00 FiO2 50 09/24/22 07:34 Intake & Output 09/25/22 09/26/22 09/26/22 18:59 06:59 18:59 Intake Total 1588 Output Total 1250 600 575 Balance 338 -600 -575 Weight 66.2 kg Intake: IV 300 Magnesium Sulfate-D5w Pmx 100 1 gm In Dextrose/Water 1 100ml.bag @ 100 mls/hr IVPB Q1H [facility] Rx#: [id number] Meropenem 1 gm In Sodium 200 Chloride 0.9% 100 ml @ 33 .3 mls/hr IVPB Q8HR [facility] Rx#:[id number] Intake, IV Titration 100 Amount Magnesium Sulfate-D5w Pmx 100 1 gm In Dextrose/Water 1 100ml.bag @ 100 mls/hr IVPB Q1H [facility] Rx#: [id number] Oral 1188 Output: Urine 1250 600 575 Other: Voiding Method Urinal Urinal Urinal # Voids 0 1 # Bowel Movements 1 1 ABP, PAP, CO, CI - Last Documented Arterial Blood Pressure 99/45 - Exam GENERAL EXAM: Alert, pleasant 77-year-old male, resting in bed, on 4 L nasal cannula, comfortable in no apparent distress. HEAD: Normocephalic. EYES: Normal reaction of pupils, equal size. NOSE: Clear with pink turbinates. THROAT: No erythema or exudates. NECK: No masses, no JVD. CHEST: No chest wall deformity. LUNGS: Equal air entry with crackles in the bilateral bases. CVS: S1 and S2 normal with no audible murmur, regular rhythm. ABDOMEN: No hepatosplenomegaly, normal bowel sounds, no guarding or rigidity. SPINE: No scoliosis or deformity SKIN: No rashes CENTRAL NERVOUS SYSTEM: No focal deficits, tone is normal in all 4 extremities. EXTREMITIES: There is no peripheral edema. No clubbing, no cyanosis. P eripheral pulses are intact. - Labs CBC & Chem 7: 09/26/22 07:40 09/26/22 07:40 Labs: Abnormal Lab Results - Last 24 Hours (Table) 09/26/22 09/26/22 Range/Units 07:40 07:40 RBC 3.68 L (4.30-5.90) m/uL Hgb 11.3 L (13.0-17.5) gm/dL Hct 32.5 L (39.0-53.0) % Sodium 135 L (137-145) mmol/L Glucose 140 H (74-99) mg/dL Total Protein 5.2 L (6.3-8.2) g/dL Albumin 2.9 L (3.5-5.0) g/dL Microbiology - Last 24 Hours (Table) 09/22/22 11:28 Blood Culture Gram Stain - Preliminary Blood Blood Culture - Preliminary Coagulase Negative Staph Micrococcus species 09/23/22 13:25 Gram Stain - Final Sputum Sputum Culture - Final Assessment and Plan Assessment: Acute hypoxemic respiratory failure secondary to an acute exacerbation of systolic congestive heart failure/pulmonary edema. Requiring BiPAP support 14/6 and 50% FiO2 and transferred to the intensive care unit 09/24/2022. Received a total of 100 mg of IV Lasix with 3.5 L diuresed and improved. Currently on 4 L nasal cannula. Echocardiogram reveals impaired left ventricular systolic function with ejection fraction 40-45%. Troponin leak with evidence of myocardial injury without ischemia, and as her cardiac catheterization today 09/26/2022 Acute healthcare acquired pneumonia, pro-calcitonin 1.51, suspect ESBL E. coli pneumonia unless proven otherwise. Previously on meropenem Blood cultures positive for coag-negative staph, micrococcus species and currently on ceftriaxone History of severe underlying COPD presently inactive. Chronic dyspnea, class III secondary to COPD. FEV1 value 39% of predicted Chronic and ongoing tobacco dependence of greater than 50 years Coronary artery disease with previous coronary artery bypass grafting Hypertension Hyperlipidemia Non-Hodgkin's lymphoma, presently in remission, patient has received rituxin Carotid atherosclerosis with previous right carotid endarterectomy Abdominal aortic aneurysm with previous endovascular stent grafting History of duodenal ulcer with hemorrhage Plan: The patient was seen and evaluated Medications and labs reviewed Currently on 4 L/m per nasal cannula Titrate the FiO2 as tolerated Continue bronchodilators Continue ceftriaxone Remains on oral diuretics Cardiac catheterization today We will continue to follow I have personally seen and examined the patient, performed the documentation and the assessment and plan as written. Number of minutes spent on the visit: 10.
--- NOTE | 2022-09-26 11:34 | P.PN ---
Subjective Progress Note Date: 09/26/22 patient is a 77-year-old gentleman with past medical history significant for COPD who presented to the ER because of worsening shortness of breath for the last few days. Patient was complaining of shortness of breath on exertion. Complaining of productive cough, phlegm was brownish in color. This morning patient had fever of 103. Denied any chest pain. Denies any nausea, vomiting or abdominal pain. Patient was worked up in the ER, initial white count was 5.5, hemoglobin 12.1, sodium of 134, potassium 4.3, BUN 29, creatinine 1.37. Chest x-ray showed new left lung airspace opacity concerning for pneumonia. Patient was started on IV antibiotics and admitted to hospitalist service 09/23. Patient seen and examined. States cough has improved, still bringing up phlegm. Denies any lightheadedness or dizziness. Vital signs stable 09/24. Patient seen and examined. Patient went into flash pulmonary edema overnight, had to be placed on BiPAP and nitro drip. Currently off the BiPAP, on 4 L of oxygen 09/26. Patient seen and examined. Patient laying comfortably in the bed. No acute issues overnight .currently nothing by mouth going for cardiac cath today REVIEW OF SYSTEMS: CONSTITUTIONAL: No fever, no malaise,. CARDIOVASCULAR: No chest pain, no palpitations, no syncope. PULMONARY: Denies any shortness of breath GASTROINTESTINAL: No diarrhea, no nausea, no vomiting, no abdominal pain. NEUROLOGICAL: No headaches, no weakness, PHYSICAL EXAMINATION: GENERAL: The patient is alert and oriented x3, not in any acute distress. Well developed, well nourished. HEENT: Pupils are round and equally reacting to light. EOMI. No scleral icterus. No conjunctival pallor. Normocephalic, atraumatic. No pharyngeal erythema. No thyromegaly. CARDIOVASCULAR: S1 and S2 present. No murmurs, rubs, or gallops. PULMONARY: Diminished breath sounds at the bases bilaterally ABDOMEN: Soft, nontender, nondistended, normoactive bowel sounds. No palpable organomegaly. MUSCULOSKELETAL: No joint swelling or deformity. EXTREMITIES: No cyanosis, clubbing, or pedal edema. NEUROLOGICAL: Gross neurological examination did not reveal any focal deficits. SKIN: No rashes. Assessment and plan Bacterial pneumonia Sepsis Chronic hypoxic respiratory failure COPD Hypertension Elevated troponin Cardiomyopathy Moderate aortic stenosis Plan; Monitor vital signs Monitor CBC Continue oxygen supplementation Continue telemetry monitoring Echo revealed impaired LV function was EF around 40% with wall motion abnormalities concerning for severe CAD and also moderate aortic stenosis Continue meropenem Continue breathing treatments Continue, aspirin, statin, beta velma Follow-up on pulmonary recommendations Follow-up cardiology recommendations, going for cardiac cath Today Follow-up on ID recommendations Objective - Vital Signs Vital signs: Vital Signs Temp 98.1 F 09/26/22 00:00 Pulse 74 09/26/22 11:23 Resp 22 09/26/22 10:00 BP 127/53 09/26/22 10:00 Pulse Ox 92 L 09/26/22 10:00 FiO2 50 09/24/22 07:34 Intake & Output 09/25/22 09/26/22 09/26/22 18:59 06:59 18:59 Intake Total 1588 Output Total 1250 600 575 Balance 338 -600 -575 Weight 66.2 kg Intake: IV 300 Magnesium Sulfate-D5w Pmx 100 1 gm In Dextrose/Water 1 100ml.bag @ 100 mls/hr IVPB Q1H [facility] Rx#: [id number] Meropenem 1 gm In Sodium 200 Chloride 0.9% 100 ml @ 33 .3 mls/hr IVPB Q8HR [facility] Rx#:[id number] Intake, IV Titration 100 Amount Magnesium Sulfate-D5w Pmx 100 1 gm In Dextrose/Water 1 100ml.bag @ 100 mls/hr IVPB Q1H [facility] Rx#: [id number] Oral 1188 Output: Urine 1250 600 575 Other: Voiding Method Urinal Urinal Urinal # Voids 0 1 # Bowel Movements 1 1 ABP, PAP, CO, CI - Last Documented Arterial Blood Pressure 99/45 - Labs CBC & Chem 7: 09/26/22 07:40 09/26/22 07:40 Labs: Abnormal Lab Results - Last 24 Hours (Table) 09/26/22 09/26/22 Range/Units 07:40 07:40 RBC 3.68 L (4.30-5.90) m/uL Hgb 11.3 L (13.0-17.5) gm/dL Hct 32.5 L (39.0-53.0) % Sodium 135 L (137-145) mmol/L Glucose 140 H (74-99) mg/dL Total Protein 5.2 L (6.3-8.2) g/dL Albumin 2.9 L (3.5-5.0) g/dL Microbiology - Last 24 Hours (Table) 09/22/22 11:28 Blood Culture Gram Stain - Preliminary Blood Blood Culture - Preliminary Coagulase Negative Staph Micrococcus species 09/23/22 13:25 Gram Stain - Final Sputum Sputum Culture - Final
[2022-09-26] MEDS ORDERED: IV FLUID CONTINUATION 500 ML IV ONE (13:15)
[2022-09-26] MEDS ORDERED: MIDAZOLAM 2 MG/2 ML VIAL IV ONE (13:30)
[2022-09-26] MEDS ORDERED: LIDOCAINE 1% INJ 10MG/ML (30 ML VIAL-PF) SQ ONE (13:31)
[2022-09-26 13:35] LABS: Eosinophils # (M) 0.33 k/uL (0-0.7); Monocytes # (M) 0.42 k/uL (0-1.0); Neutrophils # (M) 2.35 k/uL (1.3-7.7); Neutrophils % (M) 50 %; Nucleated Red Blood Cells 0 /100 WBC (0-0); Total Cells Counted 100
[2022-09-26] MEDS ORDERED: HEPARIN SODIUM 1,000 UN/ML (10ML VL) IV ONE (14:02)
[2022-09-26] MEDS ORDERED: HEPARIN SODIUM 1,000 UN/ML (10ML VL) ONE (14:02)
[2022-09-26] MEDS ORDERED: niCARdipine 25 MG/10 ML VIAL ONE (14:02)
[2022-09-26] MEDS ORDERED: IOPAMIDOL-370 125ML BTL INJ ONE (14:05)
[2022-09-26] MEDS ORDERED: CLOPIDOGREL 75 MG TAB ONE (14:08)
[2022-09-26] MEDS ORDERED: CLOPIDOGREL 75 MG TAB PO ONE (14:14)
[2022-09-26] MEDS ORDERED: IOPAMIDOL-370 100ML BTL INJ ONE (14:14)
--- NOTE | 2022-09-26 14:15 | P.PN ---
Subjective Progress Note Date: 09/26/22 Principal diagnosis: Pneumonia and bacteremia Patient is 77 year old male with a past medical history significant for non-Hodgkin lymphoma history of COPD hypertension patient was admitted back in June 2022 in this patient status post bronchoscopy culture were positive for ESBL E. coli , patient who presented to hospital visit shortness breath cough and fever concerning for pneumonia did have a positive blood culture. On today's evaluation that is 09/26/2022, the patient continues to be afebrile, the patient breathing comfortably on 4 L nasal cannula, the patient denies having any chest pain , the patient cough has decreased in intensity not bringing up any sputum no nausea no vomiting no abdominal pain or any diarrhea Objective - Vital Signs Vital signs: Vital Signs Temp 98.1 F 09/26/22 00:00 Pulse 91 09/26/22 10:00 Resp 22 09/26/22 10:00 BP 127/53 09/26/22 10:00 Pulse Ox 92 L 09/26/22 10:00 FiO2 50 09/24/22 07:34 Intake & Output 09/25/22 09/26/22 09/26/22 18:59 06:59 18:59 Intake Total 1588 Output Total 1250 600 575 Balance 338 -600 -575 Weight 66.2 kg Intake: IV 300 Magnesium Sulfate-D5w Pmx 100 1 gm In Dextrose/Water 1 100ml.bag @ 100 mls/hr IVPB Q1H [facility] Rx#: [id number] Meropenem 1 gm In Sodium 200 Chloride 0.9% 100 ml @ 33 .3 mls/hr IVPB Q8HR [facility] Rx#:[id number] Intake, IV Titration 100 Amount Magnesium Sulfate-D5w Pmx 100 1 gm In Dextrose/Water 1 100ml.bag @ 100 mls/hr IVPB Q1H [facility] Rx#: [id number] Oral 1188 Output: Urine 1250 600 575 Other: Voiding Method Urinal Urinal Urinal # Voids 0 1 # Bowel Movements 1 1 ABP, PAP, CO, CI - Last Documented Arterial Blood Pressure 99/45 - Exam GENERAL DESCRIPTION: An elderly male lying in bed in no distress RESPIRATORY SYSTEM: Unlabored breathing , decreased breath sounds at bases HEART: S1 S2 regular rate and rhythm , ABDOMEN: Soft , no tenderness EXTREMITIES: No edema feet - Labs CBC & Chem 7: 09/26/22 07:40 09/26/22 07:40 Labs: Abnormal Lab Results - Last 24 Hours (Table) 09/26/22 09/26/22 Range/Units 07:40 07:40 RBC 3.68 L (4.30-5.90) m/uL Hgb 11.3 L (13.0-17.5) gm/dL Hct 32.5 L (39.0-53.0) % Sodium 135 L (137-145) mmol/L Glucose 140 H (74-99) mg/dL Total Protein 5.2 L (6.3-8.2) g/dL Albumin 2.9 L (3.5-5.0) g/dL Microbiology - Last 24 Hours (Table) 09/22/22 11:28 Blood Culture Gram Stain - Preliminary Blood Blood Culture - Preliminary Coagulase Negative Staph Micrococcus species 09/23/22 13:25 Gram Stain - Final Sputum Sputum Culture - Final Assessment and Plan (1) Bacteremia Current Visit: Yes Status: Acute Code(s): R78.81 - BACTEREMIA SNOMED Code(s): 6833210 (2) Pneumonia involving left lung Current Visit: Yes Status: Acute Code(s): J18.9 - PNEUMONIA, UNSPECIFIED OR GANISM SNOMED Code(s): 586682997 Plan: 1patient is in the hospital with sepsis in this patient who did have a fever hypoxemia evidence of increasing/new infiltrate on the left side concerning for pneumonia in this patient who do have a history of COPD and history of ESBL E. coli pneumonia in June 2022, 2patient with a positive blood culture with gram-positive cocci which has been finalized as staph epi likely skin contamination 3sputum cultures are so far negative for resistant pathogen 4patient to continue with Rocephin 2 g daily and monitor clinical course closely Time with Patient: Less than 30
[2022-09-26] MEDS ORDERED: NITROGLYCERIN SL TABS 0.4 MG TAB SUBLINGUAL PRN (14:22)
[2022-09-26] MEDS ORDERED: ATROPINE SULFATE 0.1 MG/ML 10ML SYRINGE IV PRN (14:22)
[2022-09-26] MEDS ORDERED: RX INFO: IV CONTRAST WAS GIVEN 1 EACH MISC MISCELLANE PRN (14:22)
[2022-09-26] MEDS ORDERED: ZOLPIDEM 5 MG TAB PO PRN (14:22)
[2022-09-26] MEDS ORDERED: MAG HYDROX/AL HYDROX/SIMETH 30 ML CUP PO PRN (14:22)
[2022-09-26] MEDS ORDERED: SODIUM CHLORIDE 0.9% 1,000 ML in EMPTY BAG 1 BAG IV SCH (14:30)
--- NOTE | 2022-09-26 14:31 | P.PCN ---
Date of Procedure: 09/26/22 Operative Findings: CARDIAC CATHETERIZATION AND PERCUTANEOUS CORONARY INTERVENTION PERFORMING PHYSICIAN: Ankush Craft MD, [facility] [place] PROCEDURE PERFORMED: 1. Selective right and left coronary angiogram 2. Successful stenting of SVG to RCA using 4.5 x 12 mm Xience MARIBETH which with an excellent angiographic results 3. PINA to LAD angiogram, SVG to LCx angiogram, and SVG to RCA angiogram 4. Selective right common femoral artery angiogram and ultrasound guided access of the right common femoral artery INDICATION: Acute coronary syndrome COMPLICATION: None APPROACH: Right common femoral artery LEVEL OF SEDATION: Moderate with the sedation time off 45 minutes PROCEDURE DESCRIPTION: After obtaining an informed consent the patient was brought to the cardiac brine room laborer. The right common femoral artery was cannulated using micropuncture tech nique under ultrasound guidance, a micropuncture wire passed easily then I placed 6-Divehi sheath 23 cm at the right common femoral artery over on [address] a 23 cm because of the tortuous right iliac. Subsequently I did selective left and right coronary angiogram. Selective left coronary angiogram was performed using JL 4.5 catheter. Selective right coronary angiogram was performed using JR4 catheter. The PINA to LAD angiogram was performed using JR4 catheter. The SVG to LCx angiogram was performed also using JR4 catheter. The SVG to RCA angiogram was performed using multipurpose catheter. After that I did intervene on the SVG to RCA. The procedure was completed with no complication. SELECTIVE CORONARY ANGIOGRAM: The right coronary artery: Is occluded by the osteotome. Left main: Has mild disease only. Bifurcates into an LCx and LAD. The left circumflex: Large caliber vessel nondominant vessel. The LCx has mild disease only. Gives rise to an OM1 and OM to both appeared to have mild disease only. The left anterior descending artery: The proximal LAD just before the bifurcation of a diagonal branch has a lesion appeared to be in the range of 50%. The mid LAD is subtotally occluded was competitive flow from the PINA. Coronary bypasses angiogram: The PINA to LAD is patent The SVG to LCx has a lesion distally at the distal anastomosis appears to be in the range of 60-70% The SVG to RCA has a critical lesion in the proximal portion appears to be in the range of 99.9%. PCI OF THE SVG TO RCA: Anticoagulation was initiated using heparin will continue as a CT monitoring. Subsequently I did engage the SVG to RCA using multipurpose catheter. I did wire it using a whisper wire. Balloon angioplasty was performed using 3.5 mm balloon and subsequently I deployed 4.5 x 12 mm stent where the stent was positioned under fluoroscopy guidance and deployed under its nominal pressure. The following angiogram showed good angiographic results the procedure was completed with no complications CONCLUSION: #1 severe triple-vessel coronary artery disease #2 patent PINA to LAD #3 intermediate disease involving the SVG to LCx. #4 critical disease involving the SVG to RCA. I did perform successful stenting of the SVG to RCA POSTPROCEDURE MANAGEMENT: #1 dual antiplatelet therapy using aspirin and Plavix for 12 months #2 aggressive cholesterol control #3 follow-up with the patient
[2022-09-26] MEDS: FAMOTIDINE 20 MG TAB PO SCH (20:36)
[2022-09-26] MEDS: ATORVASTATIN 40 MG TAB PO SCH (20:38)
[2022-09-27] MEDS: NITROGLYCERIN-D5W PMX 50 MG in DEXTROSE/WATER 1 250ML.BAG IV SCH (05:55)
[2022-09-27] MEDS: PANTOPRAZOLE 40 MG TABLET PO SCH ×2 (07:00→19:28)
--- NOTE | 2022-09-27 07:45 | P.PN ---
Subjective Progress Note Date: 09/27/22 Principal diagnosis: Coronary artery disease This is a 77-year-old gentleman with a past medical history significant for CAD and status post CABG as well as COPD as well as history of non-Hodgkin lymphoma and hypertension and dyslipidemia who follows with Dr. Chan regularly. The patient initially presented to the hospital was increasing shortness of breath associated with productive cough/sputum production as well as elevated temperature. He was admitted and treated for pneumonia. We consulted to see the patient because mildly abnormal troponin. The patient when he was admitted he was started on IV fluid. Subsequently few hours after he went into acute hypoxic respiratory failure and he was diagnosed was pulmonary edema where he was given Lasix with improvement in his symptoms as well as in his oxygenation. September 242022 The patient was seen and evaluated at bedside today. He is having no chest pain at this morning. He stated that the shortness of breath has improved. He continues to be on oxygen. He seems to be overall euvolemic on examination. The patient need to undergo a heart catheterization in the next 24-48 hours to rule out severe CAD giving the abnormal troponin. His pressure has improved significantly. The echo still pending. September 252022 The patient was seen and evaluated this morning. He is hemodynamically stable and seems to be asymptomatic beside shortness of breath. No pain in the chest. He underwent an echo which revealed impaired LV function was EF around 40% with wall motion abnormalities concerning for severe CAD and also moderate aortic stenosis. I advised the patient to undergo a heart catheterization and the patient would like that to be done tomorrow. September 262022 The patient was seen and evaluated this morning. He remains stable from the cardiovascular standpoint of view. He continues to have shortness of breath with exertion but no symptoms of chest pain or chest discomfort. The plan is to pursue a heart catheterization later on today September 272022 The patient was seen and evaluated this morning. He is feeling better. He states no chest pain or shortness of breath at this point. He is stable from a cardiovascular standpoint of view. He is slightly tachycardic and with that being said going to increase the dose of beta velma. Otherwise he is on dual antiplatelet therapy. The patient can be discharged from the cardiovascular standpoint of view. The right groin is soft and nontender with no bruises. Objective - Vital Signs Vital signs: Vital Signs Temp 98.2 F 09/27/22 04:00 Pulse 79 09/27/22 07:00 Resp 14 09/27/22 07:00 BP 124/63 09/27/22 07:00 Pulse Ox 97 09/27/22 07:00 FiO2 50 09/24/22 07:34 Intake & Output 09/26/22 09/27/22 09/27/22 18:59 06:59 18:59 Intake Total 800 150 Output Total 1900 350 Balance -1100 -200 Weight 65 kg Intake: IV 200 Intake, IV Titration 300 150 Amount Sodium Chloride 0.9% 1, 300 150 000 ml In Empty Bag 1 bag @ 75 mls/hr IV .[id number] [facility] Rx#:[id number] Oral 300 Output: Urine 1900 350 Other: Voiding Method Urinal Urinal # Bowel Movements 1 1 ABP, PAP, CO, CI - Last Documented Arterial Blood Pressure 99/45 - Constitutional General appearance: Present: no acute distress - Respiratory Respiratory: negative: rales - Cardiovascular Rhythm: regular - Labs CBC & Chem 7: 09/26/22 07:40 09/27/22 05:45 Labs: Abnormal Lab Results - Last 24 Hours (Table) 09/26/22 09/26/22 Range/Units 07:40 07:40 RBC 3.68 L (4.30-5.90) m/uL Hgb 11.3 L (13.0-17.5) gm/dL Hct 32.5 L (39.0-53.0) % Sodium 135 L (137-145) mmol/L Glucose 140 H (74-99) mg/dL Total Protein 5.2 L (6.3-8.2) g/dL Albumin 2.9 L (3.5-5.0) g/dL Assessment and Plan Assessment: Assessment Acute hypoxic respiratory failure Evidence of myocardial injury was no evidence of ischemia CAD with prior revascularization Systolic murmur on examination COPD Multiple comorbid conditions Plan Continue dual antiplatelet therapy Increase the dose of beta velma The patient can be discharged
[2022-09-27] MEDS: IPRATROPIUM 0.5 MG/2.5 ML NEBU INHALATION SCH ×4 (07:56→21:09)
[2022-09-27] MEDS: SYMBICORT 160-4.5 MCG INHALER INHALATION SCH ×2 (07:57→21:09)
[2022-09-27] MEDS: ASPIRIN 81 MG PO SCH (08:55)
[2022-09-27] MEDS: MULTIVITAMINS, THERA 1 EACH TAB PO SCH (08:56)
[2022-09-27] MEDS: CLOPIDOGREL 75 MG TAB PO SCH (08:56)
[2022-09-27] MEDS: TAMSULOSIN 0.4 MG CAP.ER.24H PO SCH (08:56)
[2022-09-27] MEDS: lisinopriL 10 MG TAB PO SCH (08:56)
[2022-09-27] MEDS: LACTOBACILLUS ACIDOPH & BULGAR 1 EACH PACKET PO SCH (08:56)
[2022-09-27] MEDS: FUROSEMIDE 20 MG TAB PO SCH (08:56)
[2022-09-27] MEDS: METOPROLOL SUCCINATE (ER) 50 MG TAB.ER.24H PO SCH (08:57)
--- NOTE | 2022-09-27 09:46 | XR ---
EXAMINATION TYPE: XR chest 1V portable DATE OF EXAM: 09/27/2022 COMPARISON: 09/24/2022 HISTORY: Shortness of breath TECHNIQUE: Single frontal view of the chest is obtained. FINDINGS: Interval improvement in the right-sided pleural effusion. However, there remains no change in the patchy bilateral areas of infiltrate. Underlying COPD and pulmonary fibrosis are suspected. H eart size stable and there is postsurgical changes noted. Atherosclerotic change aorta. No evidence o f pneumothorax. Arthropathy of the shoulders and degenerative change spine. IMPRESSION: 1. Patchy bilateral infiltrates are stable appear superimposed on a background pulmonary fibrosis. 2. Interval improvement in right-sided pleural effusion.
--- NOTE | 2022-09-27 10:33 | P.PN ---
Subjective Progress Note Date: 09/27/22 This is a 77-year-old white male with history of multiple medical problems including history of ESBL E. coli pneumonia involving right lower lobe, COPD with FEV1 of 39% at best. history of non-Hodgkin's lymphoma, presently in remission, coronary arteriosclerosis, COPD, hypertension, history of duodenal u lcer, abdominal aortic aneurysm, and previous endovascular stent grafting, patient was seen yesterday in the walk-in clinic in [place], and he was complaining of high temp as high as 103.7. Some cough, but no shortness of breath, no chest pain, no hemoptysis. Considering his history and considering his symptoms, patient was advised to go to the ER. Seen in the ER yesterday, and the chest x-ray showed significant infiltrate involving the left midlung and left lower lobe. Patient was admitted, and this consult was initiated. Looking back at the patient previous bronchoscopy for right lower lobe pneumonia, patient had ESBL E. coli cultured on the BAL, hence I went ahead and recommended that the patient goes on Merrem empirically is set of other antibiotics. In the meantime we are recommending sputum cultures, which are pending. Labs on admission showed relatively normal WBC count, hemoglobin 12.1, normal electrolytes, abnormal renal profile with creatinine of 1.37, and his pro-calci tonin level was elevated at 1.51 The patient is seen today 09/24/2022 in follow-up in the intensive care unit. He was transferred here early this morning after having acute hypoxemic respiratory failure. Chest x-ray revealed increasing bilateral pulmonary infiltrates. Mild right pleural effusion. Underlying pulmonary fibrosis. He required total of 100 mg of IV Lasix and BiPAP support. He also required initially on nitroglycerin drip. Medicines been transitioned off. His BiPAP was 14/6 and 50% FiO2. No IV fluids currently. He remains on vancomycin and meropenem. Initial blood cultures were positive for coag-negative staph. White count 4.3. Hemoglobin 11.6. Platelets 156. Sodium 142. Potassium 4.1. Chloride 110. BUN 22. Creatinine 1.03. Troponin 0.074. ProBNP 4790. Currently in a -3.5 L balance. Currently on albuterol, Symbicort. He is currently awake, calm, comfortable. The patient is seen today 09/25/2022 in follow-up in the intensive care unit. He is currently resting comfortably in bed. Awake and alert in no acute distress. He is maintaining O2 saturations in the 90s on 3 L/m per nasal cannula. No IV fluids, currently. Initial blood culture positive for coag- negative staph. Sputum culture pending. White count 3.9. Hemoglobin 10.0. Platelets 149. Sodium 135. Potassium 3.5. BUN 18. Creatinine 1.04. He is continued on Symbicort, albuterol, antibiotics in the form of meropenem. He remains on oral diuretics. He may be considered for cardiac catheterization tomorrow. The patient is seen today 09/26/2022 in follow-up in the intensive care unit. He is currently resting quite comfortably in bed. Awake and alert in no acute distress. He is maintaining good O2 saturations in the 90s on 4 L/m per nasal cannula. No IV fluids currently. He is continued on Symbicort and Ventolin. Antibiotics in the form of ceftriaxone. Oral diuretics. He is scheduled for a heart catheterization this afternoon. White count 4.7. Hemoglobin 11.3. Sodium 135. Potassium 4.4. Glucose 140. AST 26. ALT 24. Currently in a -1.5 L balance. Sputum culture revealed no growth. Blood cultures with coag- negative staph, micrococcus species preliminary. The patient is seen today 09/27/2022 in follow-up in the intensive care unit. He is awake and alert in no acute distress. Resting comfortably in bed. He did undergo cardiac catheterization yesterday and received stenting of the SVG to the RCA. He denies any chest discomfort currently. No worsening shortness of breath, cough or congestion. His continue on Symbicort and albuterol. Sputum culture reveals no growth. Remains on antibiotics in the form of ceftriaxone. He is on Plavix and aspirin. Creatinine 1.08. GFR 65. Follow-up chest x-ray shows patchy bilateral infiltrates. Stable superimposed on background pulmonary fibrosis. Interval improvement in the right-sided plural effusion. Follow-up pro-calcitonin pending. Objective - Vital Signs Vital signs: Vital Signs Temp 98 F 09/27/22 08:00 Pulse 75 09/27/22 09:00 Resp 9 L 09/27/22 09:00 BP 113/72 09/27/22 09:00 Pulse Ox 97 09/27/22 09:00 FiO2 50 09/24/22 07:34 Intake & Output 09/26/22 09/27/22 09/27/22 18:59 06:59 18:59 Intake Total 800 150 300 Output Total 1900 350 275 Balance -1100 -200 25 Weight 65 kg Intake: IV 200 Intake, IV Titration 300 150 Amount Sodium Chloride 0.9% 1, 300 150 000 ml In Empty Bag 1 bag @ 75 mls/hr IV .[id number] ON LICENSE OF [facility] Rx#:[id number] Oral 300 300 Output: Urine 1900 350 275 Other: Voiding Method Urinal Urinal Urinal # Bowel Movements 1 1 ABP, PAP, CO, CI - Last Documented Arterial Blood Pressure 99/45 - Exam GENERAL EXAM: Alert, 77-year-old male, resting in bed, on 4 L nasal cannula O2 saturations 97%, comfortable in no apparent distress. HEAD: Normocephalic. EYES: Normal reaction of pupils, equal size. NOSE: Clear with pink turbinates. THROAT: No erythema or exudates. NECK: No masses, no JVD. CHEST: No chest wall deformity. LUNGS: Equal air entry with crackles in the bilateral bases. CVS: S1 and S2 normal with no audible murmur, regular rhythm. ABDOMEN: No hepatosplenomegaly, normal bowel sounds, no guarding or rigidity. SPINE: No scoliosis or deformity SKIN: No rashes CENTRAL NERVOUS SYSTEM: No focal deficits, tone is normal in all 4 extremities. EXTREMITIES: There is no peripheral edema. No clubbing, no cyanosis. Peripheral pulses are intact. - Labs CBC & Chem 7: 09/26/22 07:40 09/27/22 05:45 Assessment and Plan Assessment: Acute hypoxemic respiratory failure secondary to an acute exacerbation of systolic congestive heart failure/pulmonary edema. Requiring BiPAP support 14/6 and 50% FiO2 and transferred to the intensive care unit 09/24/2022. Received a total of 100 mg of IV Lasix with 3.5 L diuresed and improved. Currently on 4 L nasal cannula. Echocardiogram reveals impaired left ventricular systolic function with ejection fraction 40-45%. Troponin leak with evidence of myocardial injury without ischemia, status post stenting of the SVG to the RCA on 09/26/2022 Acute healthcare acquired pneumonia, pro-calcitonin 1.51, currently on ceftriaxone, 09/27/2022 chest x-ray showing improvement Blood cultures positive for coag-negative staph, micrococcus species and currently on ceftriaxone History of severe underlying COPD presently inactive. Chronic dyspnea, class III secondary to COPD. FEV1 value 39% of predicted Chronic and ongoing tobacco dependence of greater than 50 years Coronary artery disease with previous coronary artery bypass grafting Hypertension Hyperlipidemia Non-Hodgkin's lymphoma, presently in remission, patient has received rituxin Carotid atherosclerosis with previous right carotid endarterectomy Abdominal aortic aneurysm with previous endovascular stent grafting History of duodenal ulcer with hemorrhage Plan: The patient was seen and evaluated Chest x-ray, medications and labs reviewed Chest x-ray showing improvement Currently on 4 L/m per nasal cannula He does have home oxygen Continue Symbicort, albuterol HFA Discontinue ceftriaxone Levaquin 500 mg daily for 5 days Home once cleared by cardiology Follow-up in the office in 1 week I have personally seen and examined the patient, performed the documentation and the assessment and plan as written. Number of minutes spent on the visit: 10.
--- NOTE | 2022-09-27 12:53 | P.PN ---
Subjective Progress Note Date: 09/27/22 patient is a 77-year-old gentleman with past medical history significant for COPD who presented to the ER because of worsening shortness of breath for the last few days. Patient was complaining of shortness of breath on exertion. Complaining of productive cough, phlegm was brownish in color. This morning patient had fever of 103. Denied any chest pain. Denies any nausea, vomiting or abdominal pain. Patient was worked up in the ER, initial white count was 5.5, hemoglobin 12.1, sodium of 134, potassium 4.3, BUN 29, creatinine 1.37. Chest x-ray showed new left lung airspace opacity concerning for pneumonia. Patient was started on IV antibiotics and admitted to hospitalist service 09/23. Patient seen and examined. States cough has improved, still bringing up phlegm. Denies any lightheadedness or dizziness. Vital signs stable 09/24. Patient seen and examined. Patient went into flash pulmonary edema overnight, had to be placed on BiPAP and nitro drip. Currently off the BiPAP, on 4 L of oxygen 09/26. Patient seen and examined. Patient laying comfortably in the bed. No acute issues overnight .currently nothing by mouth going for cardiac cath today 09/27. Patient seen and examined. Laying comfortably in the bed. Denies any chest pain, no shortness of breath at rest. Vital signs are stable, currently on. Oxygen, blood pressure 125/60, heart rate 80, respiratory rate of 21 REVIEW OF SYSTEMS: CONSTITUTIONAL: No fever, no malaise,. CARDIOVASCULAR: No chest pain, no palpitations, no syncope. PULMONARY: Denies any shortness of breath GASTROINTESTINAL: No diarrhea, no nausea, no vomiting, no abdominal pain. NEUROLOGICAL: No headaches, no weakness, PHYSICAL EXAMINATION: GENERAL: The patient is alert and oriented x3, not in any acute distress. Well developed, well nourished. HEENT: Pupils are round and equally reacting to light. EOMI. No scleral icterus. No conjunctival pallor. Normocephalic, atraumatic. No pharyngeal erythema. No thyromegaly. CARDIOVASCULAR: S1 and S2 present. No murmurs, rubs, or gallops. PULMONARY: Diminished breath sounds at the bases bilaterally ABDOMEN: Soft, nontender, nondistended, normoactive bowel sounds. No palpable organomegaly. MUSCULOSKELETAL: No joint swelling or deformity. EXTREMITIES: No cyanosis, clubbing, or pedal edema. NEUROLOGICAL: Gross neurological examination did not reveal any focal deficits. SKIN: No rashes. Assessment and plan Bacterial pneumonia Sepsis Chronic hypoxic respiratory failure COPD Hypertension Elevated troponin status post Successful stenting of SVG to RCA using 4.5 x 12 mm Xience MARIBETH Cardiomyopathy Moderate aortic stenosis Plan; Monitor vital signs Monitor CBC Continue oxygen supplementation Continue telemetry monitoring Echo revealed impaired LV function was EF around 40% with wall motion abnormalities concerning for severe CAD and also moderate aortic stenosis Status post cardiac cath on 09/26 Successful stenting of SVG to RCA using 4.5 x 12 mm Xience MARIBETH Continue IV Rocephin Continue breathing treatments Continue, aspirin, Plavix statin., beta velma dose increased by cardiology Follow-up on pulmonary recommendations Follow-up cardiology recommendations Follow-up on ID recommendations Objective - Vital Signs Vital signs: Vital Signs Temp 98 F 09/27/22 12:00 Pulse 80 09/27/22 12:00 Resp 21 09/27/22 12:00 BP 125/63 09/27/22 12:00 Pulse Ox 92 L 09/27/22 12:00 FiO2 50 09/24/22 07:34 Intake & Output 09/26/22 09/27/22 09/27/22 18:59 06:59 18:59 Intake Total 800 150 300 Output Total 1900 350 475 Balance -1100 -200 -175 Weight 65 kg Intake: IV 200 Intake, IV Titration 300 150 Amount Sodium Chloride 0.9% 1, 300 150 000 ml In Empty Bag 1 bag @ 75 mls/hr IV .[id number] [facility] Rx#:[id number] Oral 300 300 Output: Urine 1900 350 475 Other: Voiding Method Urinal Urinal Urinal # Bowel Movements 1 1 ABP, PAP, CO, CI - Last Documented Arterial Blood Pressure 99/45 - Labs CBC & Chem 7: 09/26/22 07:40 09/27/22 05:45 Labs: Microbiology - Last 24 Hours (Table) 09/22/22 11:28 Blood Culture Gram Stain - Final Blood Blood Culture - Final Staphylococcus warneri Micrococcus species 09/22/22 11:13 Blood Culture Gram Stain - Final Blood Blood Culture - Final Staphylococcus warneri
[2022-09-27 12:54] VITALS: BMI 23.1
--- NOTE | 2022-09-27 14:10 | P.PN ---
Subjective Progress Note Date: 09/27/22 Principal diagnosis: Pneumonia and bacteremia Patient is 77 year old male with a past medical history significant for non-Hodgkin lymphoma history of COPD hypertension patient was admitted back in June 2022 in this patient status post bronchoscopy culture were positive for ESBL E. coli , patient who presented to hospital visit shortness breath cough and fever concerning for pneumonia did have a positive blood culture. On today's evaluation that is 09/27/2022, the patient remains to be afebrile, the patient breathing comfortably on 4 L nasal cannula, the patient denies having any chest pain , the patient cough has decreased in intensity and mostly dry in nature, no nausea no vomiting no abdominal pain or diarrhea Objective - Vital Signs Vital signs: Vital Signs Temp 98 F 09/27/22 12:00 Pulse 80 09/27/22 12:00 Resp 21 09/27/22 12:00 BP 125/63 09/27/22 12:00 Pulse Ox 92 L 09/27/22 12:00 FiO2 50 09/24/22 07:34 Intake & Output 09/26/22 09/27/22 09/27/22 18:59 06:59 18:59 Intake Total 800 150 300 Output Total 1900 350 875 Balance -1100 -200 -575 Weight 65 kg Intake: IV 200 Intake, IV Titration 300 150 Amount Sodium Chloride 0.9% 1, 300 150 000 ml In Empty Bag 1 bag @ 75 mls/hr IV .[id number] [facility] Rx#:[id number] Oral 300 300 Output: Urine 1900 350 875 Other: Voiding Method Urinal Urinal Urinal # Bowel Movements 1 1 ABP, PAP, CO, CI - Last Documented Arterial Blood Pressure 99/45 - Exam GENERAL DESCRIPTION: An elderly male lying in bed in no distress RESPIRATORY SYSTEM: Unlabored breathing , decreased breath sounds at bases HEART: S1 S2 regular rate and rhythm , ABDOMEN: Soft , no tenderness EXTREMITIES: No edema feet - Labs CBC & Chem 7: 09/26/22 07:40 09/27/22 05:45 Labs: Microbiology - Last 24 Hours (Table) 09/22/22 11:28 Blood Culture Gram Stain - Final Blood Blood Culture - Final Staphylococcus warneri Micrococcus species 09/22/22 11:13 Blood Culture Gram Stain - Final Blood Blood Culture - Final Staphylococcus warneri Assessment and Plan (1) Bacteremia Current Visit: Yes Status: Acute Code(s): R78.81 - BACTEREMIA SNOMED Code(s): 5236860 (2) Pneumonia involving left lung Current Visit: Yes Status: Acute Code(s): J18.9 - PNEUMONIA, UNSPECIFIED ORGANISM SNOMED Code(s): 169350926 Plan: 1patient is in the hospital with sepsis in this patient who did have a fever hypoxemia evidence of increasing/new infiltrate on the left side concerning for pneumonia in this patient who do have a history of COPD and history of ESBL E. coli pneumonia in June 2022, 2patient with a positive blood culture with gram-positive cocci which has been finalized as Staphylococcus waneri which is oxacillin sensitive likely skin contamination however blood cultures repeated document clearance of bacteremia 3sputum cultures are so far negative for resistant pathogen 4patient to continue with Rocephin 2 g daily and hopefully finishing therapy with oral antibiotics Time with Patient: Less than 30
[2022-09-27] MEDS: ATORVASTATIN 40 MG TAB PO SCH (21:09)
[2022-09-28 06:05] LABS: HGB 10.8 gm/dL (13.0-17.5); MCH 30.6 pg (25.0-35.0); MCHC 34.7 g/dL (31.0-37.0); MCV 88.2 fL (80.0-100.0); Mean Platelet Volume 8.4; Platelet Count 184 k/uL (150-450); RBC 3.52 m/uL (4.30-5.90); RDW 13.1 % (11.5-15.5); WBC 3.6 k/uL (3.8-10.6)
[2022-09-28] MEDS: NITROGLYCERIN-D5W PMX 50 MG in DEXTROSE/WATER 1 250ML.BAG IV SCH (06:17)
[2022-09-28 06:19] LABS: Albumin 2.9 g/dL (3.5-5.0); Calcium 8.4 mg/dL (8.4-10.2); Potassium 4.3 mmol/L (3.5-5.1); Total Bilirubin 0.4 mg/dL (0.2-1.3); Total Protein 5.1 g/dL (6.3-8.2)
[2022-09-28] MEDS: PANTOPRAZOLE 40 MG TABLET PO SCH (06:52)
[2022-09-28] MEDS: IPRATROPIUM 0.5 MG/2.5 ML NEBU INHALATION SCH ×2 (07:24→11:31)
[2022-09-28] MEDS: SYMBICORT 160-4.5 MCG INHALER INHALATION SCH (07:24)
--- NOTE | 2022-09-28 07:44 | P.PN ---
Subjective Progress Note Date: 09/28/22 Principal diagnosis: Coronary artery disease This is a 77-year-old gentleman with a past medical history significant for CAD and status post CABG as well as COPD as well as history of non-Hodgkin lymphoma and hypertension and dyslipidemia who follows with Dr. Chan regularly. The patient initially presented to the hospital was increasing shortness of breath associated with productive cough/sputum production as well as elevated temperature. He was admitted and treated for pneumonia. We consulted to see the patient because mildly abnormal troponin. The patient when he was admitted he was started on IV fluid. Subsequently few hours after he went into acute hypoxic respiratory failure and he was diagnosed was pulmonary edema where he was given Lasix with improvement in his symptoms as well as in his oxygenation. September 242022 The patient was seen and evaluated at bedside today. He is having no chest pain at this morning. He stated that the shortness of breath has improved. He continues to be on oxygen. He seems to be overall euvolemic on examination. The patient need to undergo a heart catheterization in the next 24-48 hours to rule out severe CAD giving the abnormal troponin. His pressure has improved significantly. The echo still pending. September 252022 The patient was seen and evaluated this morning. He is hemodynamically stable and seems to be asymptomatic beside shortness of breath. No pain in the chest. He underwent an echo which revealed impaired LV function was EF around 40% with wall motion abnormalities concerning for severe CAD and also moderate aortic stenosis. I advised the patient to undergo a heart catheterization and the patient would like that to be done tomorrow. September 262022 The patient was seen and evaluated this morning. He remains stable from the cardiovascular standpoint of view. He continues to have shortness of breath with exertion but no symptoms of chest pain or chest discomfort. The plan is to pursue a heart catheterization later on today September 272022 The patient was seen and evaluated this morning. He is feeling better. He states no chest pain or shortness of breath at this point. He is stable from a cardiovascular standpoint of view. He is slightly tachycardic and with that being said going to increase the dose of beta velma. Otherwise he is on dual antiplatelet therapy. The patient can be discharged from the cardiovascular standpoint of view. The right groin is soft and nontender with no bruises. September 282022 The patient was seen and evaluated this morning the disease is stable and he's asymptomatic. He continues to be on antibiotic for pneumonia. He continues to be on dual antiplatelet therapy along with beta velma and a statin. From the cardiovascular standpoint of view, the patient potentially can be discharged home in the next 12-24 hours. Objective - Vital Signs Vital signs: Vital Signs Temp 98 F 09/27/22 20:00 Pulse 88 09/28/22 07:34 Resp 17 09/28/22 04:00 BP 127/69 09/28/22 04:00 Pulse Ox 97 09/28/22 04:00 FiO2 50 09/24/22 07:34 Intake & Output 09/27/22 09/28/22 09/28/22 18:59 06:59 18:59 Intake Total 650 595 Output Total 1350 775 Balance -700 -180 Weight 65 kg 64.6 kg Intake: Oral 650 595 Output: Urine 1350 775 Other: Voiding Method Urinal Urinal ABP, PAP, CO, CI - Last Documented Arterial Blood Pressure 99/45 - Constitutional General appearance: Present: no acute distress - Respiratory Respiratory: bilateral: CTA - Cardiovascular Rhythm: regular - Labs CBC & Chem 7: 09/28/22 05:37 09/28/22 05:37 Labs: Abnormal Lab Results - Last 24 Hours (Table) 09/27/22 09/28/22 09/28/22 Range/Units 05:45 05:37 05:37 WBC 3.6 L (3.8-10.6) k/uL RBC 3.52 L (4.30-5.90) m/uL Hgb 10.8 L (13.0-17.5) gm/dL Hct 31.0 L (39.0-53.0) % Sodium 136 L (137-145) mmol/L Carbon Dioxide 33 H (22-30) mmol/L BUN 24 H (9-20) mg/dL Glucose 109 H (74-99) mg/dL Total Protein 5.1 L (6.3-8.2) g/dL Albumin 2.9 L (3.5-5.0) g/dL Procalcitonin 0.54 H (0.02-0.09) ng/mL Microbiology - Last 24 Hours (Table) 09/22/22 11:28 Blood Culture Gram Stain - Final Blood Blood Culture - Final Staphylococcus warneri Micrococcus species 09/22/22 11:13 Blood Culture Gram Stain - Final Blood Blood Culture - Final Staphylococcus warneri Assessment and Plan Assessment: Assessment Acute hypoxic respiratory failure Evidence of myocardial injury was no evidence of ischemia CAD with prior revascularization Systolic murmur on examination COPD Multiple comorbid conditions Plan Continue dual antiplatelet therapy The patient potentially can be discharged
[2022-09-28 09:25] LABS: Band Neutrophils % 1 %; Eosinophils # (M) 0.32 k/uL (0-0.7); Lymphocytes # (M) 1.22 k/uL (1.0-4.8); Monocytes # (M) 0.43 k/uL (0-1.0); Myelocytes # (M) 0.04 k/uL (0); Myelocytes % 1 %; Neutrophils % (M) 43 %; Nucleated Red Blood Cells 0 /100 WBC (0-0); Total Cells Counted 100
--- NOTE | 2022-09-28 09:32 | XR ---
EXAMINATION TYPE: XR chest 1V portable DATE OF EXAM: 09/28/2022 COMPARISON: 09/27/2022 HISTORY: Shortness of breath TECHNIQUE: Single frontal view of the chest is obtained. FINDINGS: There remains no change in the patchy bilateral areas of infiltrate. Underlying COPD and pu lmonary fibrosis are suspected. Heart size stable and there is postsurgical changes noted. Atheroscle rotic change aorta. No evidence of pneumothorax. Arthropathy of the shoulders and degenerative change spine. IMPRESSION: 1. Patchy bilateral infiltrates are stable appear superimposed on a background pulmonary fibrosis.
[2022-09-28] MEDS: LACTOBACILLUS ACIDOPH & BULGAR 1 EACH PACKET PO SCH (10:04)
[2022-09-28] MEDS: MULTIVITAMINS, THERA 1 EACH TAB PO SCH (10:04)
[2022-09-28] MEDS: CLOPIDOGREL 75 MG TAB PO SCH (10:04)
[2022-09-28] MEDS: ASPIRIN 81 MG PO SCH (10:04)
[2022-09-28] MEDS: TAMSULOSIN 0.4 MG CAP.ER.24H PO SCH (10:05)
[2022-09-28] MEDS: METOPROLOL SUCCINATE (ER) 50 MG TAB.ER.24H PO SCH (10:05)
[2022-09-28] MEDS: lisinopriL 10 MG TAB PO SCH (10:05)
[2022-09-28] MEDS: FUROSEMIDE 20 MG TAB PO SCH (10:05)
[2022-09-28 12:39] VITALS: BP 100/59; PULSE 81; RESP 16; TEMP 97.9
--- NOTE | 2022-09-28 12:53 | P.PN ---
Subjective Progress Note Date: 09/28/22 Principal diagnosis: Pneumonia and bacteremia Patient is 77 year old male with a past medical history significant for non-Hodgkin lymphoma history of COPD hypertension patient was admitted back in June 2022 in this patient status post bronchoscopy culture were positive for ESBL E. coli , patient who presented to hospital visit shortness breath cough and fever concerning for pneumonia did have a positive blood culture. On today's evaluation that is 09/28/2022, the patient continues to be afebrile, the patient breathing comfortably on 3 L nasal cannula, the patient denies having any chest pain , the patient did have occasional dry cough, the patient denies any nausea no vomiting no abdominal pain or diarrhea Objective - Vital Signs Vital signs: Vital Signs Temp 98 F 09/27/22 20:00 Pulse 88 09/28/22 07:34 Resp 17 09/28/22 04:00 BP 127/69 09/28/22 04:00 Pulse Ox 97 09/28/22 04:00 FiO2 50 09/24/22 07:34 Intake & Output 09/27/22 09/28/22 09/28/22 18:59 06:59 18:59 Intake Total 650 595 Output Total 1350 775 Balance -700 -180 Weight 65 kg 64.6 kg Intake: Oral 650 595 Output: Urine 1350 775 Other: Voiding Method Urinal Urinal ABP, PAP, CO, CI - Last Documented Arterial Blood Pressure 99/45 - Exam GENERAL DESCRIPTION: An elderly male lying in bed in no distress RESPIRATORY SYSTEM: Unlabored breathing , decreased breath sounds at bases HEART: S1 S2 regular rate and rhythm , ABDOMEN: Soft , no tenderness EXTREMITIES: No edema feet - Labs CBC & Chem 7: 09/28/22 05:37 09/28/22 05:37 Labs: Abnormal Lab Results - Last 24 Hours (Table) 09/27/22 09/28/22 09/28/22 Range/Units 05:45 05:37 05:37 WBC 3.6 L (3.8-10.6) k/uL RBC 3.52 L (4.30-5.90) m/uL Hgb 10.8 L (13.0-17.5) gm/dL Hct 31.0 L (39.0-53.0) % Myelocytes # (Manual) 0.04 H (0) k/uL Sodium 136 L (137-145) mmol/L Carbon Dioxide 33 H (22-30) mmol/L BUN 24 H (9-20) mg/dL Glucose 109 H (74-99) mg/dL Total Protein 5.1 L (6.3-8.2) g/dL Albumin 2.9 L (3.5-5.0) g/dL Procalcitonin 0.54 H (0.02-0.09) ng/mL Microbiology - Last 24 Hours (Table) 09/22/22 11:28 Blood Culture Gram Stain - Final Blood Blood Culture - Final Staphylococcus warneri Micrococcus species 09/22/22 11:13 Blood Culture Gram Stain - Final Blood Blood Culture - Final Staphylococcus warneri Assessment and Plan (1) Bacteremia Current Visit: Yes Status: Acute Code(s): R78.81 - BACTEREMIA SNOMED Code(s): 6676791 (2) Pneumonia involving left lung Current Visit: Yes Status: Acute Code(s): J18.9 - PNEUMONIA, UNSPECIFIED ORGANISM SNOMED Code(s): 486688127 Plan: 1patient is in the hospital with sepsis in this patient who did have a fever hypoxemia evidence of increasing/new infiltrate on the left side concerning for pneumonia in this patient who do have a history of COPD and history of ESBL E. coli pneumonia in June 2022, 2patient with a positive blood culture with gram-positive cocci which has been finalized as Staphylococcus waneri which is oxacillin sensitive likely skin contamination however blood cultures repeated , so far negative 3sputum cultures are so far negative for resistant pathogen 4patient has shown clinical improvement on Rocephin , will finish therapy with oral antibiotic prescription for Levaquin has been sent to pulmonary, discussed with the [facility] for admitting team Time with Patient: Less than 30
--- NOTE | 2022-09-28 13:08 | P.PN ---
Subjective Progress Note Date: 09/28/22 This is a 77-year-old white male with history of multiple medical problems including history of ESBL E. coli pneumonia involving right lower lobe, COPD with FEV1 of 39% at best. history of non-Hodgkin's lymphoma, presently in remission, coronary arteriosclerosis, COPD, hypertension, history of duodenal u lcer, abdominal aortic aneurysm, and previous endovascular stent grafting, patient was seen yesterday in the walk-in clinic in [place], and he was complaining of high temp as high as 103.7. Some cough, but no shortness of breath, no chest pain, no hemoptysis. Considering his history and considering his symptoms, patient was advised to go to the ER. Seen in the ER yesterday, and the chest x-ray showed significant infiltrate involving the left midlung and left lower lobe. Patient was admitted, and this consult was initiated. Looking back at the patient previous bronchoscopy for right lower lobe pneumonia, patient had ESBL E. coli cultured on the BAL, hence I went ahead and recommended that the patient goes on Merrem empirically is set of other antibiotics. In the meantime we are recommending sputum cultures, which are pending. Labs on admission showed relatively normal WBC count, hemoglobin 12.1, normal electrolytes, abnormal renal profile with creatinine of 1.37, and his pro-calci tonin level was elevated at 1.51 The patient is seen today 09/24/2022 in follow-up in the intensive care unit. He was transferred here early this morning after having acute hypoxemic respiratory failure. Chest x-ray revealed increasing bilateral pulmonary infiltrates. Mild right pleural effusion. Underlying pulmonary fibrosis. He required total of 100 mg of IV Lasix and BiPAP support. He also required initially on nitroglycerin drip. Medicines been transitioned off. His BiPAP was 14/6 and 50% FiO2. No IV fluids currently. He remains on vancomycin and meropenem. Initial blood cultures were positive for coag-negative staph. White count 4.3. Hemoglobin 11.6. Platelets 156. Sodium 142. Potassium 4.1. Chloride 110. BUN 22. Creatinine 1.03. Troponin 0.074. ProBNP 4790. Currently in a -3.5 L balance. Currently on albuterol, Symbicort. He is currently awake, calm, comfortable. The patient is seen today 09/25/2022 in follow-up in the intensive care unit. He is currently resting comfortably in bed. Awake and alert in no acute distress. He is maintaining O2 saturations in the 90s on 3 L/m per nasal cannula. No IV fluids, currently. Initial blood culture positive for coag- negative staph. Sputum culture pending. White count 3.9. Hemoglobin 10.0. Platelets 149. Sodium 135. Potassium 3.5. BUN 18. Creatinine 1.04. He is continued on Symbicort, albuterol, antibiotics in the form of meropenem. He remains on oral diuretics. He may be considered for cardiac catheterization tomorrow. The patient is seen today 09/26/2022 in follow-up in the intensive care unit. He is currently resting quite comfortably in bed. Awake and alert in no acute distress. He is maintaining good O2 saturations in the 90s on 4 L/m per nasal cannula. No IV fluids currently. He is continued on Symbicort and Ventolin. Antibiotics in the form of ceftriaxone. Oral diuretics. He is scheduled for a heart catheterization this afternoon. White count 4.7. Hemoglobin 11.3. Sodium 135. Potassium 4.4. Glucose 140. AST 26. ALT 24. Currently in a -1.5 L balance. Sputum culture revealed no growth. Blood cultures with coag- negative staph, micrococcus species preliminary. The patient is seen today 09/27/2022 in follow-up in the intensive care unit. He is awake and alert in no acute distress. Resting comfortably in bed. He did undergo cardiac catheterization yesterday and received stenting of the SVG to the RCA. He denies any chest discomfort currently. No worsening shortness of breath, cough or congestion. His continue on Symbicort and albuterol. Sputum culture reveals no growth. Remains on antibiotics in the form of ceftriaxone. He is on Plavix and aspirin. Creatinine 1.08. GFR 65. Follow-up chest x-ray shows patchy bilateral infiltrates. Stable superimposed on background pulmonary fibrosis. Interval improvement in the right-sided plural effusion. Follow-up pro-calcitonin pending. The patient is seen today 09/28/2022 in follow-up in the intensive care unit. He is awake and alert in no acute distress. Resting comfortably in bed. Marquita perez O2 saturations 3 L/m per nasal cannula. She's afebrile. Hemodynamically stable. Chest x-ray reveals patchy bilateral infiltrates which are stable. Background pulmonary fibrosis noted. Sputum culture revealed no growth. White count 3.6. Hemoglobin 10.8. Sodium 136. Potassium 4.3. BUN 24. Creatinine 1.21. Pro-calcitonin trending down at 0.54. He is continued on Symbicort and albuterol. Remains on oral diuretics. Remains on aspirin and Plavix. Objective - Vital Signs Vital signs: Vital Signs Temp 97.9 F 09/28/22 12:00 Pulse 81 09/28/22 12:00 Resp 16 09/28/22 12:00 BP 100/59 09/28/22 12:00 Pulse Ox 95 09/28/22 12:00 FiO2 50 09/24/22 07:34 Intake & Output 09/27/22 09/28/22 09/28/22 18:59 06:59 18:59 Intake Total 650 595 50 Output Total 1350 775 750 Balance -700 -180 -700 Weight 65 kg 64.6 kg Intake: IV 50 cefTRIAXone 2 gm In 50 Sodium Chloride 0.9% 50 ml @ 100 mls/hr IVPB Q24HR [facility] Rx#:[id number] Oral 650 595 Output: Urine 1350 775 750 Other: Voiding Method Urinal Urinal Toilet Urinal # Voids 1 # Bowel Movements 1 ABP, PAP, CO, CI - Last Documented Arterial Blood Pressure 99/45 - Exam GENERAL EXAM: Alert, very pleasant 77-year-old male, resting in bed, on 3 L nasal cannula, comfortable in no apparent distress. HEAD: Normocephalic. EYES: Normal reaction of pupils, equal size. NOSE: Clear with pink turbinates. THROAT: No erythema or exudates. NECK: No masses, no JVD. CHEST: No chest wall deformity. LUNGS: Equal air entry with crackles in the bilateral bases. CVS: S1 and S2 normal with no audible murmur, regular rhythm. ABDOMEN: No hepatosplenomegaly, normal bowel sounds, no guarding or rigidity. SPINE: No scoliosis or deformity SKIN: No rashes CENTRAL NERVOUS SYSTEM: No focal deficits, tone is normal in all 4 extremities. EXTREMITIES: There is no peripheral edema. No clubbing, no cyanosis. Peripheral pulses are intact. - Labs CBC & Chem 7: 09/28/22 05:37 09/28/22 05:37 Labs: Abnormal Lab Results - Last 24 Hours (Table) 09/27/22 09/28/22 09/28/22 Range/Units 05:45 05:37 05:37 WBC 3.6 L (3.8-10.6) k/uL RBC 3.52 L (4.30-5.90) m/uL Hgb 10.8 L (13.0-17.5) gm/dL Hct 31.0 L (39.0-53.0) % Myelocytes # (Manual) 0.04 H (0) k/uL Sodium 136 L (137-145) mmol/L Carbon Dioxide 33 H (22-30) mmol/L BUN 24 H (9-20) mg/dL Glucose 109 H (74-99) mg/dL Total Protein 5.1 L (6.3-8.2) g/dL Albumin 2.9 L (3.5-5.0) g/dL Procalcitonin 0.54 H (0.02-0.09) ng/mL Microbiology - Last 24 Hours (Table) 09/22/22 11:28 Blood Culture Gram Stain - Final Blood Blood Culture - Final Staphylococcus warneri Micrococcus species 09/22/22 11:13 Blood Culture Gram Stain - Final Blood Blood Culture - Final Staphylococcus warneri Assessment and Plan Assessment: Acute hypoxemic respiratory failure secondary to an acute exacerbation of systolic congestive heart failure/pulmonary edema. Requiring BiPAP support 14/ and 50% FiO2 and transferred to the intensive care unit 09/24/2022. Received a total of 100 mg of IV Lasix with 3.5 L diuresed and improved. Currently on 3 L nasal cannula. Echocardiogram reveals impaired left ventricular systolic function with ejection fraction 40-45%. Troponin leak with evidence of myocardial injury without ischemia, status post stenting of the SVG to the RCA on 09/26/2022 Acute healthcare acquired pneumonia, pro-calcitonin 1.51, trending down currently at 0.54. Chest x-ray showing improvement and stable. Currently on ceftriaxone Blood cultures positive for coag-negative staph, micrococcus species, suspected contaminant History of severe underlying COPD presently inactive. Chronic dyspnea, class III secondary to COPD. FEV1 value 39% of predicted Chronic and ongoing tobacco dependence of greater than 50 years Coronary artery disease with previous coronary artery bypass grafting Hypertension Hyperlipidemia Non-Hodgkin's lymphoma, presently in remission, patient has received rituxin Carotid atherosclerosis with previous right carotid endarterectomy Abdominal aortic aneurysm with previous endovascular stent grafting History of duodenal ulcer with hemorrhage Plan: The patient was seen and evaluated Chest x-ray, medications and labs reviewed Currently on 3 L/m per nasal cannula He does have home oxygen Continue Symbicort, albuterol HFA Antibiotics per ID service Home once cleared by cardiology Follow-up in our office in 1 week I have personally seen and examined the patient, performed the documentation and the assessment and plan as written. Number of minutes spent on the visit: 10.
--- NOTE | 2022-09-28 21:12 | P.DS ---
Providers Date of admission: 09/22/22 16:01 Expected date of discharge: 09/28/22 Attending physician: Keyanna Chauhan Consults: 09/22/22 14:12 Consult Physician Stat Consulting Provider: Liliana Jaimes Consult Reason/Comments: Pneumonia Do you want consulting provider notified?: Yes 09/22/22 16:32 Consult Physician Routine Consulting Provider: Charisma Bacon Consult Reason/Comments: COPD, recurrent pneumonia Do you want consulting provider notified?: Yes Consult Physician Urgent Consulting Provider: Kevin Chan Consult Reason/Comments: Elevated troponin Do you want consulting provider notified?: Yes 09/26/22 14:22 Consult Physician Routine Consulting Provider: [facility] Consult Reason/Comments: Post Interventional patient Do you want consulting provider notified?: Already Contacted Primary care physician: Physician Nonstaff Hospital Course: Final diagnosis Bacterial pneumonia Sepsis Bacteremia with Staphylococcus Warnerii Acute on Chronic hypoxic respiratory failure him a chronically wears O2 outpatient COPD acute exacerbation Hypertension Elevated troponin status post Successful stenting of SVG to RCA using 4.5 x 12 mm Xience MARIBETH Cardiomyopathy Moderate aortic stenosis Discharge disposition Patient is being discharged in a stable condition with guarded prognosis to home. Patient will follow-up with his pcp out of [place] in the outpatient setting upon discharge. Patient is to follow-up with pulmonary along with cardiology as scheduled. Patient will continue his prednisone and also a short course of Levaquin for 5 days to complete the course. Total time taken is greater than 35 minutes. Hospital course This is a 77-year-old male who was recently admitted with shortness of breath with COPD exacerbation along with pneumonia and being closely monitored. Patient did have positive blood cultures with staphylococcus salomon 3 and followed by infectious disease maintained on IV antibiotics. Patient will transition to oral Levaquin to complete the course. Patient did also have elevated troponin evaluated by cardiology underwent cardiac catheterization with stenting patient does have a cardiology appointment outpatient with his travel registered nurse pacu this week. Patient continues with some shortness of breath although feels is back to baseline and does chronically wear oxygen in the outpatient setting. Patient will continue on breathing treatments and inhalers along with his prednisone in a short course of oral Levaquin 500 mg daily for the next 5 days to complete a course. Patient to follow-up with pulmonary closely outpatient. Patient is to continue taking his Demadex with close outpatient labs in the next few days. Patient has been cleared by consultations for discharge home and would like to go home today. Currently no reports of chest pain, shortness of breath, or palpitations. Patient is afebrile. No reports of nausea or vomiting and patient is tolerating diet. Patient will be discharged home today. Guarded prognosis. Patient appears high risk for readmissions. Physical exam: Gen: This is a 77-year-old male who is awake, alert and oriented 3, well- developed, well-nourished HEENT: Head is atraumatic, normocephalic. Pupils equal, round. Sclerae is anicteric. NECK: Supple. No JVD. No lymphadenopathy. No thyromegaly. LUNGS: Manage breath sounds bilaterally with some scattered rhonchi and faint expiratory wheezes No intercostal retractions. HEART: Regular rate and rhythm. No murmur. ABDOMEN: Soft. Bowel sounds are present. No masses. No tenderness. EXTREMITIES: No pedal edema. No calf tenderness. NEUROLOGICAL: Patient is awake, alert and oriented x3. Cranial nerves 2 through 12 are grossly intact. Please refer to medication reconciliation sheet for a list of medications. The impression and plan of care has been dictated by Vicki Arizmendi, Nurse Practitioner as directed. Dr. Tien MD I have performed a history and examination and MDM of this patient, discussed the same with the dictator, and agree with the dictator's assessment and plan as written ,documented as a scribe. Based on total visit time, I have performed more than 50% of the visit. Patient Condition at Discharge: Fair Plan - Discharge Summary Discharge Rx Participant: Yes New Discharge Prescriptions: New Levofloxacin [Levaquin] 500 mg PO DAILY 5 Days #5 tab Clopidogrel [Plavix] 75 mg PO DAILY 30 Days #30 tab predniSONE 10 mg PO DAILY #1 tab Atorvastatin [Lipitor] 40 mg PO HS 30 Days #30 tab Budesonide-Formot 160-4.5 Mcg [Symbicort 160-4.5 Mcg Inhaler] 2 puff INHALATION RT-BID 30 Days #1 each Metoprolol Succinate (ER) [Toprol XL] 50 mg PO DAILY 30 Days #30 tab Acetaminophen Tab [Tylenol] 650 mg PO Q6HR PRN tab PRN Reason: Mild Pain Or Fever > 100.5 Continue Hettinger-3/Dha/Epa/Fish Oil [Fish Oil 1,000 mg Softgel] 1 cap PO DAILY Pantoprazole [Protonix] 40 mg PO BID Multivitamins, Thera [Multivitamin (formulary)] 1 tab PO DAILY Tiotropium 2.5 Mcg/Puff [Spiriva Respimat 2.5 Mcg] 2 puff INHALATION RT-DAILY Albuterol Nebulized [Ventolin Nebulized] 2.5 mg INHALATION RT-Q4H PRN ml PRN Reason: Shortness Of Breath Tamsulosin [Flomax] 0.4 mg PO DAILY Albuterol Inhaler [Ventolin Hfa Inhaler] 1 - 2 puff INHALATION RT-Q4H PRN PRN Reason: Shortness Of Breath Nitroglycerin Sl Tabs [Nitrostat] 0.4 mg SUBLINGUAL Q5M PRN PRN Reason: Chest Pain Aspirin EC [Ecotrin Low Dose] 81 mg PO DAILY Lactobacillus Acidophilus [Acidophilus Probiotic] 1 cap PO DAILY Torsemide [Demadex] 10 mg PO DAILY Changed lisinopriL [Zestril] 5 mg PO DAILY 30 Days #15 tab Discontinued Simvastatin 80 mg PO HS Metoprolol Succinate [Metoprolol Succinate ER] 25 mg PO DAILY Fluticasone Propion/Salmeterol [Fluticasone-Salmeterol 100-50] 1 puff INHALATION RT-BID predniSONE 10 mg PO DAILY Discharge Medication List Albuterol Inhaler [Ventolin Hfa Inhaler] 1 - 2 puff INHALATION RT-Q4H PRN 06/15/22 [History] Aspirin EC [Ecotrin Low Dose] 81 mg PO DAILY 06/15/22 [History] Multivitamins, Thera [Multivitamin (formulary)] 1 tab PO DAILY 06/15/22 [History] Nitroglycerin Sl Tabs [Nitrostat] 0.4 mg SUBLINGUAL Q5M PRN 06/15/22 [History] Hettinger-3/Dha/Epa/Fish Oil [Fish Oil 1,000 mg Softgel] 1 cap PO DAILY 06/15/22 [History] Pantoprazole [Protonix] 40 mg PO BID 06/15/22 [History] Tamsulosin [Flomax] 0.4 mg PO DAILY 06/15/22 [History] Tiotropium 2.5 Mcg/Puff [Spiriva Respimat 2.5 Mcg] 2 puff INHALATION RT-DAILY 06/15/22 [History] Lactobacillus Acidophilus [Acidophilus Probiotic] 1 cap PO DAILY 06/24/22 [History] Albuterol Nebulized [Ventolin Nebulized] 2.5 mg INHALATION RT-Q4H PRN ml 06/27/22 [Rx] Torsemide [Demadex] 10 mg PO DAILY 09/22/22 [History] Acetaminophen Tab [Tylenol] 650 mg PO Q6HR PRN tab 09/28/22 [Rx] Atorvastatin [Lipitor] 40 mg PO HS 30 Days #30 tab 09/28/22 [Rx] Budesonide-Formot 160-4.5 Mcg [Symbicort 160-4.5 Mcg Inhaler] 2 puff INHALATION RT-BID 30 Days #1 each 09/28/22 [Rx] Clopidogrel [Plavix] 75 mg PO DAILY 30 Days #30 tab 09/28/22 [Rx] Levofloxacin [Levaquin] 500 mg PO DAILY 5 Days #5 tab 09/28/22 [Rx] Metoprolol Succinate (ER) [Toprol XL] 50 mg PO DAILY 30 Days #30 tab 09/28/22 [R x] lisinopriL [Zestril] 5 mg PO DAILY 30 Days #15 tab 09/28/22 [Rx] predniSONE 10 mg PO DAILY #1 tab 09/28/22 [Rx] Follow up Appointment(s)/Referral(s): Charisma Bacon MD [STAFF PHYSICIAN] - 10/10/22 1:00 pm (Appointment at the [facility] with Dr Cano) Ankush Craft MD [STAFF PHYSICIAN] - 1 Week (CARDIOLOGY'S OFFICE WILL CALL YOU WITH AN APPOINTMENT DATE AND TIME.) Nonstaff,Physician [Primary Care Provider] - 1-2 days (PLEASE CALL AND SCHEDULE AN APPOINTMENT WITH A PRIMARY CARE PHYSICIAN.) Patient Instructions/Handouts: Metoprolol (By mouth), Lisinopril (By mouth), Atorvastatin (By mouth), Levofloxacin (By mouth), Clopidogrel (By mouth), Budesonide/Formoterol (By breathing), Pneumonia (DC), Coronary Intravascular Stent Placement (DC), Bacteremia (DC) Activity/Diet/Wound Care/Special Instructions: Activity Limited until follow-up Follow-up primary care provider on discharge Follow-up cardiology outpatient in one week Follow-up pulmonary outpatient in 1-2 weeks Continue taking medications as prescribed Recommend repeat labs in the next 2-3 days Elevate lower extremity swelling rest Discharge Disposition: HOME SELF-CARE
== END 2022-09-28 14:00 | disposition home or self-care (01) | DRG 853 ==
LOC: EC 13:04 → 4SSUR 16:01 → 3SCARD 16:13 → 2SICU 09-24 06:21
PROVIDERS: ADMIT Internal Medicine; ATTEND Internal Medicine
PROC: 5A09357 Assistance with Respiratory Ventilation, Less than 24 Consecutive Hours, Continuous Positive Airway Pressure (ICD-10-PCS; 2022-09-24)
PROC: 4A023N7 Measurement of Cardiac Sampling and Pressure, Left Heart, Percutaneous Approach (ICD-10-PCS; 2022-09-26)
PROC: B2111ZZ Fluoroscopy of Multiple Coronary Arteries using Low Osmolar Contrast (ICD-10-PCS; 2022-09-26)
PROC: 4A023N7 Measurement of Cardiac Sampling and Pressure, Left Heart, Percutaneous Approach (ICD-10-PCS; 2022-09-26)
PROC: B2131ZZ Fluoroscopy of Multiple Coronary Artery Bypass Grafts using Low Osmolar Contrast (ICD-10-PCS; 2022-09-26)
PROC: 027034Z Dilation of Coronary Artery, One Artery with Drug-eluting Intraluminal Device, Percutaneous Approach (ICD-10-PCS; principal; 2022-09-26 13:30)
DX: A41.1 Sepsis due to other specified staphylococcus (principal); I50.23 Acute on chronic systolic (congestive) heart failure; J96.21 Acute and chronic respiratory failure with hypoxia; J15.29 Pneumonia due to other staphylococcus; N17.9 Acute kidney failure, unspecified; I42.9 Cardiomyopathy, unspecified; I5A Non-ischemic myocardial injury (non-traumatic); J44.0 Chronic obstructive pulmonary disease with (acute) lower respiratory infection; J44.1 Chronic obstructive pulmonary disease with (acute) exacerbation; I25.719 Atherosclerosis of autologous vein coronary artery bypass graft(s) with unspecified angina pectoris; J84.10 Pulmonary fibrosis, unspecified; I11.0 Hypertensive heart disease with heart failure; Z99.81 Dependence on supplemental oxygen; I65.29 Occlusion and stenosis of unspecified carotid artery; Z95.828 Presence of other vascular implants and grafts; I35.0 Nonrheumatic aortic (valve) stenosis; I25.10 Atherosclerotic heart disease of native coronary artery without angina pectoris; Z20.822 Contact with and (suspected) exposure to COVID-19; E83.42 Hypomagnesemia; I45.10 Unspecified right bundle-branch block; I44.4 Left anterior fascicular block; I49.3 Ventricular premature depolarization; Y95 Nosocomial condition; E78.5 Hyperlipidemia, unspecified; Z79.899 Other long term (current) drug therapy; Z79.51 Long term (current) use of inhaled steroids; Z79.82 Long term (current) use of aspirin; Z95.1 Presence of aortocoronary bypass graft; Z86.79 Personal history of other diseases of the circulatory system; Z86.19 Personal history of other infectious and parasitic diseases; Z85.72 Personal history of non-Hodgkin lymphomas; Z87.11 Personal history of peptic ulcer disease; Z87.891 Personal history of nicotine dependence; Z79.02 Long term (current) use of antithrombotics/antiplatelets; Z87.01 Personal history of pneumonia (recurrent)
CPT/HCPCS: 36415; 71045; 71046; 80053; 81001; 82565; 83605; 83735; 83880; 84132; 84145; 84484; 85025; 85610; 85730; 87040; 87070; 87077; 87186; 87205; 87636; 93005; 93306; 93455; 94640; 94660; 96361; 96365; 96367; 96375; 99285

== ENCOUNTER 2024-05-07 16:06 | Inpatient (IN) | payer MEDICARE, BC ==
--- NOTE | 2024-05-07 16:26 | ED ---
SOB HPI - General Source: patient, family, RN notes reviewed <Carolina Kahn - Last Filed: 05/07/24 16:25> <Jr Mcfarland - Last Filed: 05/07/24 22:03> - General Stated Complaint: SOB,chest pain Time Seen by Provider: 05/07/24 16:20 - History of Present Illness Initial Comments: Quick [id number] male with history of COPD on 3 L nasal cannula oxygen presents with worsening shortness of breath, productive cough, fevers over the past 4 days. Patient had pneumonia approximately 4 weeks ago. Patient is currently on 10 mg of prednisone daily. (Carolina Kahn) Dictation was produced using [employer] dictation software. please excuse any grammatical, word or spelling errors. Chief Complaint: 79-year-old male with extensive respiratory and cardiac comorbidities presents to the ER for shortness of breath and cough History of Present Illness: Patient is 79-year-old male he wears oxygen as needed. States that he has been more short of breath especially for the last day. Patient has had a fever at home of 102. Family number at the bedside states that patient was recently admitted with pneumonia at [facility]. His counter person is Dr. Cano. He has been having cough productive of sputum. Patient states that he feels ill. Denies any pain complaints. The ROS documented in this emergency department record has been reviewed and confirmed by me. Those systems with pertinent positive or negative responses have been documented in the HPI. All other systems are other negative and/or noncontributory. (Jr Mcfarland) - Related Data Home Medications Medication Instructions Recorded Confirmed Aspirin EC [Ecotrin Low Dose] 81 mg PO DAILY 06/15/22 05/07/24 Multivitamins, Thera [Multivitamin 1 tab PO DAILY 06/15/22 05/07/24 (formulary)] Easley-3/Dha/Epa/Fish Oil [Fish Oil 1 cap PO DAILY 06/15/22 05/07/24 1,000 mg Softgel] Pantoprazole [Protonix] 40 mg PO BID 06/15/22 05/07/24 Tamsulosin [Flomax] 0.4 mg PO HS 06/15/22 05/07/24 Tiotropium 2.5 Mcg/Puff [Spiriva 2 puff INHALATION RT-DAILY 06/15/22 05/07/24 Respimat 2.5 Mcg] Torsemide [Demadex] 10 mg PO DAILY 09/22/22 05/07/24 Fluticasone Propion/Salmeterol 1 puff INHALATION RT-BID 06/05/23 05/07/24 [Fluticasone-Salmeterol 100-50] Metoprolol Succinate (ER) [Toprol 25 mg PO DAILY 06/05/23 05/07/24 XL] predniSONE 10 mg PO DAILY 11/06/23 05/07/24 Albuterol Sulfate [Albuterol 2 puff INHALATION RT-Q6H 05/07/24 05/07/24 Sulfate Hfa] Atorvastatin [Lipitor] 40 mg PO HS 05/07/24 05/07/24 Clopidogrel [Plavix] 75 mg PO DAILY 05/07/24 05/07/24 Montelukast [Singulair] 10 mg PO HS 05/07/24 05/07/24 Allergies Allergy/AdvReac Type Severity Reaction Status Date / Time No Known Allergies Allergy Verified 05/07/24 17:25 Review of Systems ROS Other: All systems not noted in ROS Statement are negative. <Carolina Kahn - Last Filed: 05/07/24 16:25> ROS Other: All systems not noted in ROS Statement are negative. <Jr Mcfarland - Last Filed: 05/07/24 22:03> ROS Statement: Those systems with pertinent positive or pertinent negative responses have been documented in the HPI. Past Medical History Past Medical History: Cancer, Heart Failure, COPD, Hyperlipidemia, Hypertension Additional Past Medical History / Comment(s): Non-hodgkins lymphoma 2021, maulik nary arteriosclerosis, anemia History of Any Multi-Drug Resistant Organisms: ESBL Date of last positivie culture/infection: 06/19/22 E.coli ESBL MDRO Source:: Bronch Wash Past Surgical History: Back Surgery, Coronary Bypass/CABG Additional Past Surgical History / Comment(s): AAA repair in 03/2022 with stent placed, right carotid endarterectomy, on flomax for not emptying bladder per patient, CABG in 2001 Past Anesthesia/Blood Transfusion Reactions: No Reported Reaction Past Psychological History: No Psychological Hx Reported Smoking Status: Light tobacco smoker Past Alcohol Use History: None Reported Past Drug Use History: None Reported - Past Family History Father Family Medical History: Unable to Obtain Additional Family Medical History / Comment(s): patient left home when he was 15 years old and doesn't know what his family had <Carolina Kahn - Last Filed: 05/07/24 16:25> General Exam <Carolina Kahn - Last Filed: 05/07/24 16:25> <Jr Mcfarland - Last Filed: 05/07/24 22:03> - General Exam Comments Initial Comments: Visual Physical Exam Vital signs reviewed General: Well-appearing, nontoxic, no acute distress. Head: Normocephalic, atraumatic Eyes: PERRLA, EOMI ENT: Airway patent Chest: Nonlabored breathing Skin: No visual rash, normal skin tone Neuro: Alert and oriented 3 Musculoskeletal: No gross abnormalities (Carolina Kahn) PHYSICAL EXAM: General Impression: Alert and oriented x3, malaised, mildly dyspneic HEENT: Normocephalic atraumatic, extra-ocular movements intact, pupils equal and reactive to light bilaterally, mucous membranes moist. Cardiovascular: Heart regular rate and rhythm Chest: diffuse wheezing and rhonchi Abdomen: abdomen soft, non-tender, non-distended, no organomegaly Musculoskeletal: Pulses present and equal in all extremities, no peripheral edema Motor: no focal deficits noted Neurological: CN II-XII grossly intact, no focal motor or sensory deficits noted Skin: Intact with no visualized rashes Psych: Normal affect and mood (Jr Mcfarland) Course Vital Signs 05/07/24 05/07/24 05/07/24 16:33 18:18 20:51 Temperature 98.5 F Pulse Rate 88 77 82 Respiratory 18 18 18 Rate Blood Pressure 115/77 112/62 134/64 O2 Sat by Pulse 94 L 96 96 Oximetry Medical Decision Making <Carolina Kahn - Last Filed: 05/07/24 16:25> - Lab Data Result diagrams: 05/07/24 17:40 05/07/24 17:40 <Jr Mcfarland - Last Filed: 05/07/24 22:03> - Medical Decision Making I completed the quick note portion of this chart signed Carolina Kahn PA-C (Carolina Kahn) Was pt. sent in by a medical professional or institution (PABLO Gooden, INVENTORY SPECIALIST, urgent care, hospital, or custodial...) When possible be specific @ -No Did you speak to anyone other than the patient for history (EMS, parent, family, police, friend...)? What history was obtained from this source @ -Grandson at the bedside states that patient was recently admitted for pneumonia Did you review nursing and triage notes (agree or disagree)? Why? @ -I reviewed and agree with nursing and triage notes Were old charts reviewed (outside hosp., previous admission, EMS record, old EKG, old radiological studies, urgent care reports/EKG's, custodial records)? Report findings @ -No old charts were reviewed Differential Diagnosis (chest pain, altered mental status, abdominal pain women, abdominal pain men, vaginal bleeding, musculoskeletal, weakness, fever, dyspnea, syncope, headache, dizziness, GI bleed, back pain, seizure, CVA, palpatations, mental health)? @ -Differential Dyspnea: Coronary syndrome, arrhythmia, tamponade, asthma, COPD, pulmonary embolism, pneumonia, pneumothorax, pulmonary effusion, anaphylaxis, diabetic ketoacidosis, flailed chest, pulmonary contusion, diaphragmatic rupture, anemia, neuromuscular, this is not meant to be an all-inclusive list. EKG interpreted by me (3pts min.). @ -My EKG interpretation: Ventricular rate 1, sinus rhythm,. 131, right bundle branch block, QRS 140, QTc 446. No CO prolongation, no QTC prolongation, no ST or T-wave changes noted. Overall, this EKG is unremarkable X-rays interpreted by me (1pt min.). @ -Chest x-ray shows multifocal pneumonia CT interpreted by me (1pt min.). @ -None done U/S interpreted by me (1pt. min.). @ -None done What testing was considered but not performed or refused? (CT, X-rays, U/S, labs)? Why? @ -None What meds were considered but not given or refused? Why? @ -None Was smoking cessation discussed for >3mins.? @ -No Were there social determinants of health that impacted care today? How? (Homelessness, low income, unemployed, alcoholism, drug addiction, transporta tion, low edu. Level, literacy, decrease access to med. care, snf, rehab)? @ -No Was there de-escalation of care discussed even if they declined (Discuss DNR or withdrawal of care, Hospice)? DNR status @ -No What co-morbidities impacted this encounter? (DM, HTN, Smoking, COPD, CAD, Cancer, CVA, ARF, Chemo, Hep., AIDS, mental health diagnosis, sleep apnea, morbid obesity)? @ -Heart failure, COPD, recent pneumonia Was patient admitted / discharged? Hospital course, mention meds given and route , prescriptions, significant lab abnormalities, going to OR and other pertinent info. @ -79-year-old male with multiple cardiac and pulmonary comorbidities presents to the emergency department for cough, shortness of breath and fatigue. Vital signs upon arrival are within acceptable limits. Patient wheezing on physical examination. Laboratory evaluation obtained leukocytosis 8.1. Rest of labs within acceptable limits. X-ray shows multifocal pneumonia start antibiotics will be admitted. Patient given breathing treatment and steroids. Did you discuss the management of the patient with other professionals (professionals i.e. , PA, INVENTORY SPECIALIST, lab, RT, psych nurse, social media community manager, filemaker developer, teacher, public records officer, leather case finisher)? Give summary @ -Case discussed with Dr. Remy for admission. Was critical care preformed (if so, how long)? @ -No Undiagnosed new problem with uncertain prognosis? @ -No Drug Therapy requiring intensive monitoring for toxicity (Heparin, Nitro, Insulin, Cardizem)? @ -No Were any procedures done? @ -No Diagnosis/symptom? Acute, or Chronic, or Acute on Chronic? Uncomplicated (without systemic symptoms) or Complicated (systemic symptoms)? @ -Acute complicated pneumonia Side effects of treatment? @ -No Exacerbation, Progression, or Severe Exacerbation? @ -No Poses a threat to life or bodily function? How? (Chest pain, [place], [place], pneumonia, PE, COPD, DKA, ARF, appy, cholecystitis, CVA, Diverticulitis, Homicidal, Suicidal, threat to staff... and all critical care pts) @ -yes (Jr Mcfarland) - Lab Data Lab Results 05/07/24 05/07/24 05/07/24 Range/Units 15:40 17:40 17:40 WBC 16.1 H (3.8-10.6) k/uL RBC 3.90 L (4.30-5.90) m/uL Hgb 12.0 L (13.0-17.5) gm/dL Hct 35.1 L (39.0-53.0) % MCV 90.1 (80.0-100.0) fL MCH 30.9 (25.0-35.0) pg MCHC 34.3 (31.0-37.0) g/dL RDW 15.1 (11.5-15.5) % Plt Count 190 (150-450) k/uL MPV 7.9 Neutrophils % 86 % Lymphocytes % 9 % Monocytes % 3 % Eosinophils % 0 % Basophils % 0 % Neutrophils # 13.8 H (1.3-7.7) k/uL Lymphocytes # 1.5 (1.0-4.8) k/uL Monocytes # 0.5 (0-1.0) k/uL Eosinophils # 0.0 (0-0.7) k/uL Basophils # 0.0 (0-0.2) k/uL PT 10.9 (10.0-12.5) sec INR 1.0 (<1.2) APTT 24.0 (22.0-30.0) sec Sodium (137-145) mmol/L Potassium (3.5-5.1) mmol/L Chloride (98-107) mmol/L Carbon Dioxide (22-30) mmol/L Anion Gap mmol/L BUN (9-20) mg/dL Creatinine (0.66-1.25) mg/dL Est GFR (CKD-EPI)AfAm (>60 ml/min/1.73 sqM) Est GFR (CKD-EPI)NonAf (>60 ml/min/1.73 sqM) Glucose (74-99) mg/dL Calcium (8.4-10.2) mg/dL Total Bilirubin (0.2-1.3) mg/dL AST (17-59) U/L ALT (4-49) U/L Alkaline Phosphatase (38-126) U/L Troponin I (0.000-0.034) ng/mL NT-Pro-B Natriuret Pep pg/mL Total Protein (6.3-8.2) g/dL Albumin (3.5-5.0) g/dL Influenza Type A (PCR) Not Detected (Not Detectd) Influenza Type B (PCR) Not Detected (Not Detectd) RSV (PCR) Not Detected (Not Detectd) SARS-CoV-2 (PCR) Not Detected (Not Detectd) 05/07/24 05/07/24 Range/Units 17:40 17:40 WBC (3.8-10.6) k/uL RBC (4.30-5.90) m/uL Hgb (13.0-17.5) gm/dL Hct (39.0-53.0) % MCV (80.0-100.0) fL MCH (25.0-35.0) pg MCHC (31.0-37.0) g/dL RDW (11.5-15.5) % Plt Count (150-450) k/uL MPV Neutrophils % % Lymphocytes % % Monocytes % % Eosinophils % % Basophils % % Neutrophils # (1.3-7.7) k/uL Lymphocytes # (1.0-4.8) k/uL Monocytes # (0-1.0) k/uL Eosinophils # (0-0.7) k/uL Basophils # (0-0.2) k/uL PT (10.0-12.5) sec INR (<1.2) APTT (22.0-30.0) sec Sodium 135 L (137-145) mmol/L Potassium 4.2 (3.5-5.1) mmol/L Chloride 105 (98-107) mmol/L Carbon Dioxide 26 (22-30) mmol/L Anion Gap 4 mmol/L BUN 26 H (9-20) mg/dL Creatinine 1.42 H (0.66-1.25) mg/dL Est GFR (CKD-EPI)AfAm 53 (>60 ml/min/1.73 sqM) Est GFR (CKD-EPI)NonAf 46 (>60 ml/min/1.73 sqM) Glucose 137 H (74-99) mg/dL Calcium 9.0 (8.4-10.2) mg/dL Total Bilirubin 1.0 (0.2-1.3) mg/dL AST 25 (17-59) U/L ALT 22 (4-49) U/L Alkaline Phosphatase 71 (38-126) U/L Troponin I 0.024 (0.000-0.034) ng/mL NT-Pro-B Natriuret Pep 804 pg/mL Total Protein 5.8 L (6.3-8.2) g/dL Albumin 3.5 (3.5-5.0) g/dL Influenza Type A (PCR) (Not Detectd) Influenza Type B (PCR) (Not Detectd) RSV (PCR) (Not Detectd) SARS-CoV-2 (PCR) (Not Detectd) Disposition <Carolina Kahn - Last Filed: 05/07/24 16:25> Decision Time: 22:03 <Jr Mcfarland - Last Filed: 05/07/24 22:03> Clinical Impression: Pneumonia Disposition: ADMITTED IP TO THIS HOSP Condition: Serious Referrals: Monster Kinney DO [Primary Care Provider] - 1-2 days
[2024-05-07] MEDS: DEXAMETHASONE SOD PHOSPHATE 10 MG/ML 1 ML VIAL IV STA (17:55)
[2024-05-07 18:01] LABS: Basophils % (A) 0 %; Eosinophils % (A) 0 %; HCT 35.1 % (39.0-53.0); Lymphocytes # (A) 1.5 k/uL (1.0-4.8); Lymphocytes % (A) 9 %; MCH 30.9 pg (25.0-35.0); MCHC 34.3 g/dL (31.0-37.0); MCV 90.1 fL (80.0-100.0); Mean Platelet Volume 7.9; Monocytes # (A) 0.5 k/uL (0-1.0); Monocytes % (A) 3 %; Neutrophils # (A) 13.8 k/uL (1.3-7.7); Neutrophils % (A) 86 %; Platelet Count 190 k/uL (150-450); RDW 15.1 % (11.5-15.5); WBC 16.1 k/uL (3.8-10.6)
[2024-05-07 18:09] LABS: Prothrombin Time 10.9 sec (10.0-12.5)
[2024-05-07 18:10] LABS: ALT 22 U/L (4-49); AST 25 U/L (17-59); African American GFR (CKD) 53 (>60 ml/min/1.73 sqM); Albumin 3.5 g/dL (3.5-5.0); Alkaline Phosphatase 71 U/L (38-126); Anion Gap 4 mmol/L; Blood Urea Nitrogen 26 mg/dL (9-20); Carbon Dioxide 26 mmol/L (22-30); Chloride 105 mmol/L (98-107); Glucose 137 mg/dL (74-99); Non-African American GFR(CKD) 46 (>60 ml/min/1.73 sqM); Potassium 4.2 mmol/L (3.5-5.1); Sodium 135 mmol/L (137-145); Total Protein 5.8 g/dL (6.3-8.2)
--- NOTE | 2024-05-07 18:16 | XR ---
EXAMINATION TYPE: XR chest 2V DATE OF EXAM: 05/07/2024 COMPARISON: 11/07/2023 HISTORY: 79 year-old male shortness of breath, productive cough, fever TECHNIQUE: AP and lateral views FINDINGS: Median sternotomy wires and post-CABG clips. Heart normal size. There is hyperinflation. There is pat william airspace opacity at the posterior right base. No pleural effusion. IMPRESSION: COPD and post CABG changes. There is patchy pneumonia at the posterior right base.
[2024-05-07 18:18] LABS: NT-Pro-B-Type Natriuretic Pept 804 pg/mL
[2024-05-07] MEDS: IPRATROPIUM-ALBUTEROL 3 ML NEB INHALATION STA (21:08)
[2024-05-07] MEDS ORDERED: PNEUMONIA PROTOCOL UTILIZED 1 EACH MISC PO PRN (21:50)
[2024-05-07] MEDS: AZITHROMYCIN 500 MG in SODIUM CHLORIDE 0.9% 250 ML IVPB STA (23:34)
[2024-05-08] MEDS: AZITHROMYCIN 500 MG TAB PO SCH (08:35)
[2024-05-08] MEDS ORDERED: IPRATROPIUM-ALBUTEROL 3 ML NEB INHALATION PRN (08:53)
--- NOTE | 2024-05-08 09:40 | XR ---
EXAMINATION TYPE: XR chest 1V portable DATE OF EXAM: 05/08/2024 5:23 AM CLINICAL INDICATION: Male, 79 years old with history of pneumonia; [facility] COMPARISON: Chest radiographs from 2923 TECHNIQUE: XR chest 1V portable Frontal view of the chest. FINDINGS: Lungs/Pleura: Airspace opacities project over the right lung base. There is no evidence of pleural ef fusion, focal consolidation, or pneumothorax. Pulmonary vascularity: Unremarkable. Heart/mediastinum: Cardiomediastinal silhouette is unremarkable. Musculoskeletal: No acute osseous pathology. Midline sternotomy wires and surgical clips project over the mediastinum. Other findings: None IMPRESSION: Similar exam with airspace opacities in the right lung base. COPD.
[2024-05-08] MEDS: methylPREDNISolone SOD SUCCI 125 MG/2 ML VIAL IV SCH (11:22)
[2024-05-08] MEDS: IPRATROPIUM-ALBUTEROL 3 ML NEB INHALATION SCH (11:24)
--- NOTE | 2024-05-08 14:06 | P.CNPUL ---
History of Present Illness Consult date: 05/08/24 Requesting physician: Jonah Remy Reason for consult: dyspnea, COPD, hypoxemia Chief complaint: Shortness of breath, cough, congestion History of present illness: This is a pleasant 79-year-old male patient with a known history of oxygen dependent chronic obstructive pulmonary disease with chronic and ongoing tobacco dependence of greater than 60 years FEV1 value 39% of predicted. He also has a history of non-Hodgkin's lymphoma, coronary artery disease with previous coronary artery bypass grafting, abdominal aortic aneurysm with stent placement in March 2022, carotid stenosis status post endarterectomy, ESBL E. coli on bronchial wash in 2021. He presented here to the emergency room yesterday with a 4-day history of increasing shortness of breath, cough and congestion. He states he was treated for pneumonia approximately 4 weeks ago and is currently still on 10 mg of prednisone. Chest x-ray reveals airspace opacities in the right lung base. Evidence of COPD. White count 16.1. Hemoglobin 12.0. Platelets 190. Sodium 135. Potassium 4.2. Bicarb 26. BUN 26. Creatinine 1. 42. Glucose 137. Viral screen is negative. proBNP 804. Troponin 0.024. He is seen today in consultation in the emergency department. He is currently sitting up at the bedside. Awake and alert in no acute distress. He is dyspneic with conversation. Dyspneic with minimal exertion. He is maintaining O2 saturations in the 90s on 3 L/min per nasal cannula. He is afebrile. Hemodynamically stable. He has been initiated on DuoNeb inhalations, Symbicort, Singulair, Solu-Medrol. Antibiotics in the form of ceftriaxone and azithromycin. On oral diuretics. Review of Systems REVIEW OF SYSTEMS: CONSTITUTIONAL: Denies any recent significant weight loss or weight gain. EYES: Denies change in vision. EARS, NOSE, MOUTH, THROAT: Denies headaches, denies sore throat. CARDIOVASCULAR: Denies chest pain, palpitations or syncopal episodes. RESPIRATORY: Positive for shortness of breath, cough, congestion no hemoptysis. GASTROINTESTINAL: Denies change in appetite, denies abdominal pain GENITOURINARY: Denies hematuria, denies infections. MUSKULOSKELETAL: Denies pain, denies swelling. INTEGUMENTARY: Denies rash, denies eczema. NEUROLOGICAL: Denies recent memory loss, no recent seizure activity. PSYCHIATRIC: Denies anxiety, denies depression. HEMATOLOGIC/LYMPHATIC: Denies anemia, denies enlarged lymph nodes. Past Medical History Past Medical History: Cancer, Heart Failure, COPD, Hyperlipidemia, Hypertension Additional Past Medical History / Comment(s): Non-hodgkins lymphoma 2021, coronary arteriosclerosis, anemia History of Any Multi-Drug Resistant Organisms: ESBL Date of last positivie culture/infection: 06/19/22 E.coli ESBL MDRO Source:: Bronch Wash Past Surgical History: Back Surgery, Coronary Bypass/CABG Additional Past Surgical History / Comment(s): AAA repair in 03/2022 with stent placed, right carotid endarterectomy, on flomax for not emptying bladder per p atient, CABG in 2001 Past Anesthesia/Blood Transfusion Reactions: No Reported Reaction Past Psychological History: No Psychological Hx Reported Smoking Status: Light tobacco smoker Past Alcohol Use History: None Reported Past Drug Use History: None Reported - Past Family History Father Family Medical History: Unable to Obtain Additional Family Medical History / Comment(s): patient left home when he was 15 years old and doesn't know what his family had Medications and Allergies Home Medications Medication Instructions Recorded Confirmed Type Aspirin EC [Ecotrin Low Dose] 81 mg PO DAILY 06/15/22 05/07/24 History Multivitamins, Thera [Multivitamin 1 tab PO DAILY 06/15/22 05/07/24 History (formulary)] Oden-3/Dha/Epa/Fish Oil [Fish Oil 1 cap PO DAILY 06/15/22 05/07/24 History 1,000 mg Softgel] Pantoprazole [Protonix] 40 mg PO BID 06/15/22 05/07/24 History Tamsulosin [Flomax] 0.4 mg PO HS 06/15/22 05/07/24 History Tiotropium 2.5 Mcg/Puff [Spiriva 2 puff INHALATION RT-DAILY 06/15/22 05/07/24 History Respimat 2.5 Mcg] Torsemide [Demadex] 10 mg PO DAILY 09/22/22 05/07/24 History Fluticasone Propion/Salmeterol 1 puff INHALATION RT-BID 06/05/23 05/07/24 History [Fluticasone-Salmeterol 100-50] Metoprolol Succinate (ER) [Toprol 25 mg PO DAILY 06/05/23 05/07/24 History XL] predniSONE 10 mg PO DAILY 11/06/23 05/07/24 History Albuterol Sulfate [Albuterol 2 puff INHALATION RT-Q6H 05/07/24 05/07/24 History Sulfate Hfa] Atorvastatin [Lipitor] 40 mg PO HS 05/07/24 05/07/24 History Clopidogrel [Plavix] 75 mg PO DAILY 05/07/24 05/07/24 History Montelukast [Singulair] 10 mg PO HS 05/07/24 05/07/24 History Allergies Allergy/AdvReac Type Severity Reaction Status Date / Time No Known Allergies Allergy Verified 05/07/24 17:25 Physical Exam Vitals: Vital Signs Temp Pulse Pulse Resp BP BP Pulse Ox 05/08/24 11:35 74 05/08/24 11:24 71 97 05/08/24 11:21 71 20 118/67 96 05/08/24 08:32 97.4 F L 69 20 122/62 95 05/08/24 01:40 98.4 F 71 16 94/52 98 05/07/24 21:14 78 18 05/07/24 21:08 79 18 05/07/24 20:51 82 18 134/64 96 05/07/24 18:18 77 18 112/62 96 05/07/24 16:33 98.5 F 88 18 115/77 94 L Intake and Output 05/07/24 05/08/24 05/08/24 22:59 06:59 14:59 Intake Total 590 Output Total 200 Balance 390 Intake: Intake, IV Titration 50 Amount cefTRIAXone 2 gm In 50 Sodium Chloride 0.9% 50 ml @ 100 mls/hr IVPB Q24H [facility] Rx#:[id number] Oral 540 Output: Urine 200 Other: Voiding Method Toilet Urinal # Voids 1 Weight 65.771 kg GENERAL EXAM: Alert, pleasant 79-year-old male patient, on 3 L nasal cannula, fairly comfortable in no apparent distress. HEAD: Normocephalic. EYES: Normal reaction of pupils, equal size. NOSE: Clear with pink turbinates. THROAT: No erythema or exudates. NECK: No masses, no JVD. CHEST: No chest wall deformity. LUNGS: Equal air entry with bilateral end expiratory wheeze, diminished. CVS: S1 and S2 normal with no audible murmur, regular rhythm. ABDOMEN: No hepatosplenomegaly, normal bowel sounds, no guarding or rigidity. SPINE: No scoliosis or deformity SKIN: No rashes CENTRAL NERVOUS SYSTEM: No focal deficits, tone is normal in all 4 extremities. EXTREMITIES: There is no peripheral edema. No clubbing, no cyanosis. Peripheral pulses are intact. Results - Laboratory Findings CBC and BMP: 05/07/24 17:40 05/07/24 17:40 PT/INR, D-dimer PT 10.9 sec (10.0-12.5) 05/07/24 17:40 INR 1.0 (<1.2) 05/07/24 17:40 Abnormal lab findings: Abnormal Labs 05/07/24 05/07/24 17:40 17:40 WBC 16.1 H RBC 3.90 L Hgb 12.0 L Hct 35.1 L Neutrophils # 13.8 H Sodium 135 L BUN 26 H Creatinine 1.42 H Glucose 137 H Total Protein 5.8 L - Diagnostic Findings Chest x-ray: image reviewed Assessment and Plan Assessment: Acute on chronic hypoxemic respiratory failure secondary to an acute exacerbation of chronic obstructive pulmonary disease Oxygen dependent chronic obstructive pulmonary disease with an FEV1 value 39% of predicted Chronic tobacco dependence of greater than 60 years History of non-Hodgkin's lymphoma Coronary disease with previous coronary artery bypass surgery in 2001 History of abdominal aortic aneurysm status post stent placement in March 2022 Carotid stenosis status post endarterectomy History of ESBL E. coli and bronchial wash in 2021 Hyperlipidemia Hypertension Plan: The patient was seen and evaluated Chest x-ray, labs and medications reviewed Titrate the FiO2 as tolerated Continue bronchodilators, steroids Continue antibiotics for now Check a procalcitonin Educated regarding the importance of complete smoking cessation NicoDerm patch will be offered We will continue to follow and make further recommendations based on his clinical status I have personally seen and examined the patient, performed the documentation and the assessment and plan as written. Number of minutes spent on the visit: 20.
--- NOTE | 2024-05-08 17:29 | P.HPIM ---
History of Present Illness H&P Date: 05/08/24 Chief Complaint: Shortness of breath 79-year-old male, history of hypertension, hyperlipidemia, CHF, COPD he wears oxygen as needed. Patient brought to ER stating that he has been more short of breath especially for the last day. Patient has had a fever at home of 102. Family number at the bedside states that patient was recently admitted with kevon lyn at [facility]. His microwave radio technician is Dr. Cano; family believes that patient was not treated optimally for pneumonia and was released too soon. He has been having cough productive of sputum. Patient states that he feels ill. Denies any pain complaints. Chest x-ray reveals airspace opacities in the right lung base. Evidence of COPD. White count 16.1. Hemoglobin 12.0. Platelets 190. Sodium 135. Potassium 4.2. Bicarb 26. BUN 26. Creatinine 1.42. Glucose 137. Viral screen is negative. proBNP 804. Troponin 0.024. He is seen today in consultation in the emergency department. He is currently sitting up at the bedside. Awake and alert in no acute distress. He is dyspneic with conversation. Dyspneic with minimal exertion. He is maintaining O2 saturations in the 90s on 3 L/min per nasal cannula. Review of Systems CONSTITUTIONAL: Denies any recent significant weight loss or weight gain. EYES: Denies change in vision. EARS, NOSE, MOUTH, THROAT: Denies headaches, denies sore throat. CARDIOVASCULAR: Denies chest pain, palpitations or syncopal episodes. RESPIRATORY: Positive for shortness of breath, cough, congestion no hemoptysis. GASTROINTESTINAL: Denies change in appetite, denies abdominal pain GENITOURINARY: Denies hematuria, denies infections. MUSKULOSKELETAL: Denies pain, denies swelling. INTEGUMENTARY: Denies rash, denies eczema. NEUROLOGICAL: Denies recent memory loss, no recent seizure activity. PSYCHIATRIC: Denies anxiety, denies depression. HEMATOLOGIC/LYMPHATIC: Denies anemia, denies enlarged lymph nodes. Past Medical History Past Medical History: Cancer, Heart Failure, COPD, Hyperlipidemia, Hypertension Additional Past Medical History / Comment(s): Non-hodgkins lymphoma 2021, coronary arteriosclerosis, anemia History of Any Multi-Drug Resistant Organisms: ESBL Date of last positivie culture/infection: 06/19/22 E.coli ESBL MDRO Source:: Bronch Wash Past Surgical History: Back Surgery, Coronary Bypass/CABG Additional Past Surgical History / Comment(s): AAA repair in 03/2022 with stent placed, right carotid endarterectomy, on flomax for not emptying bladder per patient, CABG in 2001 Past Anesthesia/Blood Transfusion Reactions: No Reported Reaction Past Psychological History: No Psychological Hx Reported Smoking Status: Light tobacco smoker Past Alcohol Use History: None Reported Past Drug Use History: None Reported - Past Family History Father Family Medical History: Unable to Obtain Additional Family Medical History / Comment(s): patient left home when he was 15 years old and doesn't know what his family had Medications and Allergies Home Medications Medication Instructions Recorded Confirmed Type Aspirin EC [Ecotrin Low Dose] 81 mg PO DAILY 06/15/22 05/07/24 History Multivitamins, Thera [Multivitamin 1 tab PO DAILY 06/15/22 05/07/24 History (formulary)] Evans-3/Dha/Epa/Fish Oil [Fish Oil 1 cap PO DAILY 06/15/22 05/07/24 History 1,000 mg Softgel] Pantoprazole [Protonix] 40 mg PO BID 06/15/22 05/07/24 History Tamsulosin [Flomax] 0.4 mg PO HS 06/15/22 05/07/24 History Tiotropium 2.5 Mcg/Puff [Spiriva 2 puff INHALATION RT-DAILY 06/15/22 05/07/24 History Respimat 2.5 Mcg] Torsemide [Demadex] 10 mg PO DAILY 09/22/22 05/07/24 History Fluticasone Propion/Salmeterol 1 puff INHALATION RT-BID 06/05/23 05/07/24 Hist ory [Fluticasone-Salmeterol 100-50] Metoprolol Succinate (ER) [Toprol 25 mg PO DAILY 06/05/23 05/07/24 History XL] predniSONE 10 mg PO DAILY 11/06/23 05/07/24 History Albuterol Sulfate [Albuterol 2 puff INHALATION RT-Q6H 05/07/24 05/07/24 History Sulfate Hfa] Atorvastatin [Lipitor] 40 mg PO HS 05/07/24 05/07/24 History Clopidogrel [Plavix] 75 mg PO DAILY 05/07/24 05/07/24 History Montelukast [Singulair] 10 mg PO HS 05/07/24 05/07/24 History Allergies Allergy/AdvReac Type Severity Reaction Status Date / Time No Known Allergies Allergy Verified 05/07/24 17:25 Physical Exam Vitals: Vital Signs Temp Pulse Pulse Resp BP BP Pulse Ox 05/08/24 11:35 74 05/08/24 11:24 71 97 05/08/24 11:21 71 20 118/67 96 05/08/24 08:32 97.4 F L 69 20 122/62 95 05/08/24 01:40 98.4 F 71 16 94/52 98 05/07/24 21:14 78 18 05/07/24 21:08 79 18 05/07/24 20:51 82 18 134/64 96 05/07/24 18:18 77 18 112/62 96 05/07/24 16:33 98.5 F 88 18 115/77 94 L Intake and Output 05/07/24 05/08/24 05/08/24 22:59 06:59 14:59 Intake Total 590 Output Total 200 Balance 390 Intake: Intake, IV Titration 50 Amount cefTRIAXone 2 gm In 50 Sodium Chloride 0.9% 50 ml @ 100 mls/hr IVPB Q24H [facility] Rx#:[id number] Oral 540 Output: Urine 200 Other: Voiding Method Toilet Urinal # Voids 1 Weight 65.771 kg GENERAL EXAM: Alert, pleasant 79-year-old male patient, on 3 L nasal cannula, fairly comfortable in no apparent distress. HEAD: Normocephalic. EYES: Normal reaction of pupils, equal size. THROAT: No erythema or exudates. NECK: No masses, no JVD. CHEST: No chest wall deformity. LUNGS: Equal air entry with bilateral end expiratory wheeze, diminished. CVS: S1 and S2 normal with no audible murmur, regular rhythm. ABDOMEN: No hepatosplenomegaly, normal bowel sounds, no guarding or rigidity. SKIN: No rashes CENTRAL NERVOUS SYSTEM: No focal deficits, tone is normal in all 4 extremities. EXTREMITIES: There is no peripheral edema. No clubbing, no cyanosis. Peripheral pulses are intact. Results CBC & Chem 7: 05/07/24 17:40 05/07/24 17:40 Labs: Abnormal Lab Results - Last 24 Hours (Table) 05/07/24 05/07/24 Range/Units 17:40 17:40 WBC 16.1 H (3.8-10.6) k/uL RBC 3.90 L (4.30-5.90) m/uL Hgb 12.0 L (13.0-17.5) gm/dL Hct 35.1 L (39.0-53.0) % Neutrophils # 13.8 H (1.3-7.7) k/uL Sodium 135 L (137-145) mmol/L BUN 26 H (9-20) mg/dL Creatinine 1.42 H (0.66-1.25) mg/dL Glucose 137 H (74-99) mg/dL Total Protein 5.8 L (6.3-8.2) g/dL Assessment and Plan Assessment: 1. Acute on chronic hypoxemic respiratory failure, likely related to acute exacerbation of chronic obstructive pulmonary disease Oxygen dependent chronic obstructive pulmonary disease with an FEV1 value 39% of predicted Chronic tobacco dependence of greater than 60 years Patient is currently on Solu-Medrol 60 mg IV every 8 hours; DuoNeb nebulizer treatments -Continue with O2 per nasal cannula with plans to titrate/wean as able 2. Acute exacerbation COPD; continue with supplemental oxygen -Solu-Medrol 60 mg IV every 8 hours; IV Rocephin and azithromycin -Pulmonary service on board; appreciate recommendations 3. Possible pneumonia; chest x-ray reveals patchy pneumonia at posterior right base -- patient has been placed on IV Rocephin and azithromycin; we will monitor CBC, CRP and procalcitonin -Appreciate pulmonary recommendation 4. Acute renal injury; IV fluid hydration; we will monitor strict JUSTUS's, daily weights, renal function electrolytes; nephrotoxins and hypotension 5. Coronary disease with previous coronary artery bypass surgery in 2001 -Will continue with aspirin, statins, Plavix and beta-blockers 6. Hyperlipidemia; Lipitor 40 mg p.o. nightly 7. Hypertension; metoprolol 25 mg daily DVT prophylaxis; SCDs/subcu heparin CODE STATUS; full code
[2024-05-08] MEDS: PANTOPRAZOLE 40 MG TABLET PO SCH (19:00)
[2024-05-08] MEDS: SYMBICORT 160-4.5 MCG INHALER INHALATION SCH (19:51)
[2024-05-08] MEDS ORDERED: FLUTICASONE PROPION INHALATION SCH (20:00)
[2024-05-08] MEDS ORDERED: [UNRECOGNIZED DRUG - OTHER] INHALATION SCH (20:00)
[2024-05-08] MEDS ORDERED: SALMETEROL INHALATION SCH (20:00)
[2024-05-08] MEDS: ATORVASTATIN 40 MG TAB PO SCH (20:37)
[2024-05-08] MEDS: MONTELUKAST 10 MG TAB PO SCH (20:37)
[2024-05-08] MEDS: TAMSULOSIN 0.4 MG CAP.ER.24H PO SCH (20:37)
[2024-05-08] MEDS: CEFEPIME 2 GM in SODIUM CHLORIDE 0.9% 100 ML IVPB SCH (20:38)
[2024-05-08] MEDS: HEPARIN SODIUM,PORCINE 5,000 UNIT/ML 1 ML VIAL SQ SCH (20:38)
[2024-05-09 08:06] LABS: African American GFR (CKD) 65 (>60 ml/min/1.73 sqM); Anion Gap 5 mmol/L; Blood Urea Nitrogen 36 mg/dL (9-20); Calcium 8.8 mg/dL (8.4-10.2); Carbon Dioxide 26 mmol/L (22-30); Chloride 105 mmol/L (98-107); Glucose 163 mg/dL (74-99); Non-African American GFR(CKD) 56 (>60 ml/min/1.73 sqM); Potassium 4.9 mmol/L (3.5-5.1); Sodium 136 mmol/L (137-145)
[2024-05-09] MEDS: CLOPIDOGREL 75 MG TAB PO SCH (09:29)
[2024-05-09] MEDS: MULTIVITAMINS, THERA 1 EACH TAB PO SCH (09:29)
[2024-05-09] MEDS: METOPROLOL SUCCINATE (ER) 25 MG TAB.ER.24H PO SCH (09:29)
[2024-05-09] MEDS: TORSEMIDE 20 MG TAB PO SCH (09:29)
[2024-05-09] MEDS: ASPIRIN 81 MG PO SCH (09:29)
[2024-05-09] MEDS: NICOTINE 21MG/24HR PATCH TRANSDERM SCH (09:30)
--- NOTE | 2024-05-09 11:28 | P.PN ---
Subjective Progress Note Date: 05/09/24 This is a pleasant 79-year-old male patient with a known history of oxygen dependent chronic obstructive pulmonary disease with chronic and ongoing tobacco dependence of greater than 60 years FEV1 value 39% of predicted. He also has a history of non-Hodgkin's lymphoma, coronary artery disease with previous coronary artery bypass grafting, abdominal aortic aneurysm with stent placement in March 2022, carotid stenosis status post endarterectomy, ESBL E. coli on bronchial wash in 2021. He presented here to the emergency room yesterday with a 4-day history of increasing shortness of breath, cough and congestion. He states he was treated for pneumonia approximately 4 weeks ago and is currently still on 10 mg of prednisone. Chest x-ray reveals airspace opacities in the right lung base. Evidence of COPD. White count 16.1. Hemoglobin 12.0. Platelets 190. Sodium 135. Potassium 4.2. Bicarb 26. BUN 26. Creatinine 1.42. Glucose 137. Viral screen is negative. proBNP 804. Troponin 0.024. He is seen today in consultation in the emergency department. He is currently sitting up at the bedside. Awake and alert in no acute distress. He is dyspneic with conversation. Dyspneic with minimal exertion. He is maintaining O2 saturations in the 90s on 3 L/min per nasal cannula. He is afebrile. Hemodynamically stable. He has been initiated on DuoNeb inhalations, Symbicort, Singulair, Solu-Medrol. Antibiotics in the form of ceftriaxone and azithromycin. On oral diuretics. The patient is seen today May 09, 2024 in follow-up on the regular medical floor. He is currently sitting up in bed. Awake and alert in no acute distress. Breathing easier today compared to yesterday. He is maintaining O2 saturations in the 90s on 2 L/min per nasal cannula. Blood cultures are pending. Sodium 136. Potassium 4.9. Bicarb 26. BUN 36. Creatinine 1.21. Glucose 163. Procalcitonin negative at 0.30. Antibiotics discontinued. Objective - Vital Signs Vital signs: Vital Signs Temp 97.6 F 05/09/24 09:04 Pulse 76 05/09/24 09:19 Resp 16 05/09/24 09:04 BP 126/63 05/09/24 09:04 Pulse Ox 96 08/31/24 09:04 FiO2 Intake & Output 05/08/24 05/09/24 05/09/24 18:59 06:59 18:59 Weight 65.771 kg 69.5 kg Other: # Voids 0 2 1 - Exam GENERAL EXAM: Alert, 79-year-old male, sitting up in bed, on 2 L nasal cannula, comfortable in no apparent distress. HEAD: Normocephalic. EYES: Normal reaction of pupils, equal size. NOSE: Clear with pink turbinates. THROAT: No erythema or exudates. NECK: No masses, no JVD. CHEST: No chest wall deformity. LUNGS: Equal air entry with bilateral end expiratory wheeze, diminished. CVS: S1 and S2 normal with no audible murmur, regular rhythm. ABDOMEN: No hepatosplenomegaly, normal bowel sounds, no guarding or rigidity. SPINE: No scoliosis or deformity SKIN: No rashes CENTRAL NERVOUS SYSTEM: No focal deficits, tone is normal in all 4 extremities. EXTREMITIES: There is no peripheral edema. No clubbing, no cyanosis. Peripheral pulses are intact. - Labs CBC & Chem 7: 05/07/24 17:40 05/09/24 06:19 Labs: Abnormal Lab Results - Last 24 Hours (Table) 05/09/24 Range/Units 06:19 Sodium 136 L (137-145) mmol/L BUN 36 H (9-20) mg/dL Glucose 163 H (74-99) mg/dL Microbiology - Last 24 Hours (Table) 05/07/24 17:40 Blood Culture - Preliminary Blood Assessment and Plan Assessment: Acute on chronic hypoxemic respiratory failure secondary to an acute exacerbation of chronic obstructive pulmonary disease Oxygen dependent chronic obstructive pulmonary disease with an FEV1 value 39% of predicted Chronic tobacco dependence of greater than 60 years Recent admission to [facility] for 1 week with pneumonia and completed 12 days of antibiotics History of non-Hodgkin's lymphoma Coronary disease with previous coronary artery bypass surgery in 2001 History of abdominal aortic aneurysm status post stent placement in March 2022 Carotid stenosis status post endarterectomy History of ESBL E. coli and bronchial wash in 2021 Hyperlipidemia Hypertension Plan: The patient was seen and evaluated Medications reviewed Titrate the FiO2 as tolerated Continue bronchodilators, steroids Procalcitonin negative, antibiotics discontinued We will continue to follow I have personally seen and examined the patient, performed the documentation and the assessment and plan as written. Number of minutes spent on the visit: 10.
[2024-05-09 13:17] LABS: Basophils # (A) 0.04 X 10*3/uL (0.00-0.10); Basophils % (A) 0.2 %; Eosinophils # (A) 0 X 10*3/uL (0.04-0.35); Eosinophils % (A) 0 %; HGB 10.7 g/dL (13.0-17.0); Lymphocytes # (A) 0.96 X 10*3/uL (0.90-5.00); Lymphocytes % (A) 5.8 %; MCH 30.4 pg (27.0-32.0); MCHC 33.4 g/dL (32.0-37.0); MCV 90.9 FL (80.0-97.0); Mean Platelet Volume 11.3 FL (9.5-12.2); Monocytes # (A) 0.31 X 10*3/uL (0.20-1.00); Monocytes % (A) 1.9 %; NRBC Per 100 WBC 0 X 10*3/uL (0.00-0.01); Neutrophils # (A) 15.08 X 10*3/uL (1.80-7.70); Neutrophils % (A) 91.4 %; Platelet Count 203 X 10*3/uL (140-440); RBC 3.52 X 10*6/uL (4.40-5.60); RDW 15.1 % (11.5-14.5); WBC 16.51 X 10*3/uL (4.50-10.00)
--- NOTE | 2024-05-09 14:33 | P.PN ---
Subjective Progress Note Date: 05/09/24 79 year old M with PMH of systolic CHF with EF 40 to 45%, COPD on home O2, chronic kidney disease, hypertension, hyperlipidemia, non-Hodgkins lymphoma, CAD with CABG, AAA with stent, carotid stenosis with endarterectomy presents to the ED for shortness of breath. Noted Tmax 102F at home. Recently admitted for PNA at [facility]. In the ED he underwent extensive evaluation. T 98.5F, BP 115/77, HR 88, RR 20, 94% on 3L NC. CBC, Coag panel, CMP significant for WBC 16.1, RBC 3.9, Hg 12, Hct 35.1, Na 135, BUN 26, Cr 1.42, glu 137, total protein 5.8. Troponin 0.024. BNP 804. COVID, RSV, Flu negative. EKG sinus rhythm, RBBB. CXR COPD changes and patchy PNA posterior right base. Started on Rocephin and Azithromycin and bronchodilators for concerns for CAP. Pulmonary consulted. Pro- judi negative, antibiotics discontinued. 05/09 Patient was seen and examined. Reports slight improvement in breathing. 30% back to normal. CBC and BMP significant for WBC 16.51, RBC 3.52, Hg 10.7, Hct 32, Na 136, BUN 36, glu 163. Procal was negative so antibiotics have been discontinued. Legionella Ag negative. BCx negative so far. Sputum Cx many PMN, many G+ cocci, fever G+ bacilli, few G- bacilli. Vital signs reviewed General: non toxic, no distress, appears at stated age, normal weight Derm: no unusual rashes/lesions, warm Head: atraumatic, normocephalic, symmetric Eyes: EOMI, no lid lag, anicteric sclera ENT: Nose and ears atraumatic Neck: No cervical lymphadenopathy, trachea midline, supple Cardiovascular: S1S2 reg, no murmur, no edema Lungs: Decreased BS bilateral, + ronchi at the bases, no accessory muscle use Ext: muscle strength 5 out of 5 in all 4 extremities grossly, no gross muscle atrophy, no contractures, Neuro: no gross focal neuro deficits Psych: Alert, oriented, appropriate affect Based on my assessment of this patient, this patient meets a high complexity level of care. Acute on chronic hypoxic respiratory failure Acute on chronic COPD exacerbation: DuoNeb QID scheduled and Q2H PRN for SOB/wheezing. Symbicort 2 INH BID. SoluMedrol 60 mg IV Q6H. Singulair 10 mg PO QHS. Pulmonary on board. Leukocytosis likely steroid induced Recent diagnosis of pneumonia, completed course of antibiotics Systolic CHF EF 40-45%: Appears euvolemic. May benefit from MCKINLEY/ARB if BP permits. Chronic kidney disease with Cr appearing at baseline Hypertension: Metoprolol as below. Dyslipidemia: Lipitor as below. CAD post CABG: ASA 81 mg PO QD. Lipitor 40 mg PO QHS. Plavix 75 mg PO QD. Metoprolol 25 mg PO QD. AAA with stent Carotid stenosis post endarterectomy CODE STATUS: FULL CODE DVT Prophylaxis: GI Prophylaxis: Protonix Designated medical POA if patient is not able to make medical decisions for themselves: I have reviewed the following parts consultant notes: Pulmonary I have reviewed the results of the following tests: CBC, BMP, BCx, Sputum Cx, Procal I have ordered the following tests: I have discussed the care of this patient with the following independent historian: I have independently interpreted the following test below: I have discussed the management of this patient with the following physician: Objective - Vital Signs Vital signs: Vital Signs Temp 97.6 F 05/09/24 09:04 Pulse 76 05/09/24 12:53 Resp 16 05/09/24 09:04 BP 126/63 05/09/24 09:04 Pulse Ox 96 05/09/24 09:04 FiO2 Intake & Output 05/08/24 05/09/24 05/09/24 18:59 06:59 18:59 Weight 65.771 kg 69.5 kg Other: # Voids 0 2 1 - Labs CBC & Chem 7: 05/09/24 06:19 05/09/24 06:19 Labs: Abnormal Lab Results - Last 24 Hours (Table) 05/09/24 05/09/24 Range/Units 06:19 06:19 WBC 16.51 H (4.50-10.00) X 10*3/uL RBC 3.52 L (4.40-5.60) X 10*6/uL Hgb 10.7 L (13.0-17.0) g/dL Hct 32.0 L (39.6-50.0) % RDW 15.1 H (11.5-14.5) % Immature Gran # 0.12 H (0.00-0.04) X 10*3/uL Neutrophils # 15.08 H (1.80-7.70) X 10*3/uL Eosinophils # 0 L (0.04-0.35) X 10*3/uL Sodium 136 L (137-145) mmol/L BUN 36 H (9-20) mg/dL Glucose 163 H (74-99) mg/dL Microbiology - Last 24 Hours (Table) 05/08/24 19:42 Gram Stain - Preliminary Sputum 05/07/24 17:40 Blood Culture - Preliminary Blood
[2024-05-09] MEDS: LACTOBACILLUS ACIDOPHILUS/PECT 1 EACH CAPSULE PO SCH (15:34)
[2024-05-10] MEDS: MELATONIN 3 MG TABLET PO SCH (01:40)
--- NOTE | 2024-05-10 10:33 | P.PN ---
Subjective Progress Note Date: 05/10/24 This is a pleasant 79-year-old male patient with a known history of oxygen dependent chronic obstructive pulmonary disease with chronic and ongoing tobacco dependence of greater than 60 years FEV1 value 39% of predicted. He also has a history of non-Hodgkin's lymphoma, coronary artery disease with previous coronary artery bypass grafting, abdominal aortic aneurysm with stent placement in March 2022, carotid stenosis status post endarterectomy, ESBL E. coli on bronchial wash in 2021. He presented here to the emergency room yesterday with a 4-day history of increasing shortness of breath, cough and congestion. He states he was treated for pneumonia approximately 4 weeks ago and is currently still on 10 mg of prednisone. Chest x-ray reveals airspace opacities in the right lung base. Evidence of COPD. White count 16.1. Hemoglobin 12.0. Platelets 190. Sodium 135. Potassium 4.2. Bicarb 26. BUN 26. Creatinine 1.42. Glucose 137. Viral screen is negative. proBNP 804. Troponin 0.024. He is seen today in consultation in the emergency department. He is currently sitting up at the bedside. Awake and alert in no acute distress. He is dyspneic with conversation. Dyspneic with minimal exertion. He is maintaining O2 saturations in the 90s on 3 L/min per nasal cannula. He is afebrile. Hemodynamically stable. He has been initiated on DuoNeb inhalations, Symbicort, Singulair, Solu-Medrol. Antibiotics in the form of ceftriaxone and azithromycin. On oral diuretics. The patient is seen today May 09, 2024 in follow-up on the regular medical floor. He is currently sitting up in bed. Awake and alert in no acute distress. Breathing easier today compared to yesterday. He is maintaining O2 saturations in the 90s on 2 L/min per nasal cannula. Blood cultures are pending. Sodium 136. Potassium 4.9. Bicarb 26. BUN 36. Creatinine 1.21. Glucose 163. Procalcitonin negative at 0.30. Antibiotics discontinued. The patient is seen today May 10, 2020 for follow-up on the regular medical floor. He has been up ambulating in his room. Awake and alert in no acute distress. Maintaining good O2 saturations in the high 90s on 2 L/min per nasal cannula. He is afebrile. Hemodynamically stable. He remains on DuoNeb inhalations, Singulair, Symbicort, Solu-Medrol. Heparin for DVT prophylaxis. NicoDerm patch in place. Sputum culture pending. Objective - Vital Signs Vital signs: Vital Signs Temp 97.5 F L 05/10/24 07:12 Pulse 72 05/10/24 09:26 Resp 18 05/10/24 07:12 BP 144/78 05/10/24 07:12 Pulse Ox 98 05/10/24 07:12 FiO2 Intake & Output 05/09/24 05/10/24 05/10/24 18:59 06:59 18:59 Weight 62 kg Other: # Voids 1 - Exam GENERAL EXAM: Alert, pleasant 79-year-old male, ambulating in room, on 2 L nasal cannula, comfortable in no apparent distress. HEAD: Normocephalic. EYES: Normal reaction of pupils, equal size. NOSE: Clear with pink turbinates. THROAT: No erythema or exudates. NECK: No masses, no JVD. CHEST: No chest wall deformity. LUNGS: Equal air entry with bilateral end expiratory wheeze, diminished. CVS: S1 and S2 normal with no audible murmur, regular rhythm. ABDOMEN: No hepatosplenomegaly, normal bowel sounds, no guarding or rigidity. SPINE: No scoliosis or deformity SKIN: No rashes CENTRAL NERVOUS SYSTEM: No focal deficits, tone is normal in all 4 extremities. EXTREMITIES: There is no peripheral edema. No clubbing, no cyanosis. Peripheral pulses are intact. - Labs CBC & Chem 7: 05/09/24 06:19 05/09/24 06:19 Labs: Abnormal Lab Results - Last 24 Hours (Table) 05/09/24 Range/Units 06:19 WBC 16.51 H (4.50-10.00) X 10*3/uL RBC 3.52 L (4.40-5.60) X 10*6/uL Hgb 10.7 L (13.0-17.0) g/dL Hct 32.0 L (39.6-50.0) % RDW 15.1 H (11.5-14.5) % Immature Gran # 0.12 H (0.00-0.04) X 10*3/uL Neutrophils # 15.08 H (1.80-7.70) X 10*3/uL Eosinophils # 0 L (0.04-0.35) X 10*3/uL Microbiology - Last 24 Hours (Table) 05/08/24 19:42 Gram Stain - Preliminary Sputum Sputum Culture - Preliminary Gram Neg Bacilli 05/07/24 17:40 Blood Culture - Preliminary Blood Assessment and Plan Assessment: Acute on chronic hypoxemic respiratory failure secondary to an acute exacerbation of chronic obstructive pulmonary disease Oxygen dependent chronic obstructive pulmonary disease with an FEV1 value 39% of predicted Chronic tobacco dependence of greater than 60 years Recent admission to [facility] for 1 week with pneumonia and completed 12 days of antibiotics History of non-Hodgkin's lymphoma Coronary disease with previous coronary artery bypass surgery in 2001 History of abdominal aortic aneurysm status post stent placement in March 2022 Carotid stenosis status post endarterectomy History of ESBL E. coli and bronchial wash in 2021 Hyperlipidemia Hypertension Plan: The patient was seen and evaluated Medications reviewed Continue bronchodilators, steroids Sputum culture pending Increase his activity as tolerated We will continue to follow I have personally seen and examined the patient, performed the documentation and the assessment and plan as written. Number of minutes spent on the visit: 10.
[2024-05-10 10:42] LABS: Basophils # (A) 0.02 X 10*3/uL (0.00-0.10); Basophils % (A) 0.1 %; Eosinophils # (A) 0 X 10*3/uL (0.04-0.35); Eosinophils % (A) 0 %; HCT 32.3 % (39.6-50.0); HGB 10.8 g/dL (13.0-17.0); Lymphocytes # (A) 0.84 X 10*3/uL (0.90-5.00); Lymphocytes % (A) 4.9 %; MCH 30.3 pg (27.0-32.0); MCHC 33.4 g/dL (32.0-37.0); MCV 90.7 FL (80.0-97.0); Mean Platelet Volume 11.3 FL (9.5-12.2); Monocytes # (A) 0.39 X 10*3/uL (0.20-1.00); Monocytes % (A) 2.3 %; NRBC Per 100 WBC 0 X 10*3/uL (0.00-0.01); Neutrophils # (A) 15.84 X 10*3/uL (1.80-7.70); Neutrophils % (A) 91.5 %; Platelet Count 213 X 10*3/uL (140-440); RBC 3.56 X 10*6/uL (4.40-5.60); RDW 15.1 % (11.5-14.5); WBC 17.29 X 10*3/uL (4.50-10.00)
[2024-05-10 11:18] LABS: BUN/Creat Ratio 24.44 Ratio (12.00-20.00); Blood Urea Nitrogen 39.1 mg/dL (9.0-27.0); Calcium 8.6 mg/dL (8.7-10.3); Carbon Dioxide 22.4 mmol/L (21.6-31.8); Chloride 103 mmol/L (96-109); Glucose 187 mg/dL (70-110); Potassium 4.8 mmol/L (3.5-5.5); Sodium 139 mmol/L (135-145)
--- NOTE | 2024-05-10 12:07 | P.PN ---
Subjective Progress Note Date: 05/10/24 79 year old M with PMH of systolic CHF with EF 40 to 45%, COPD on home O2, chronic kidney disease, hypertension, hyperlipidemia, non-Hodgkins lymphoma, CAD with CABG, AAA with stent, carotid stenosis with endarterectomy presents to the ED for shortness of breath. Noted Tmax 102F at home. Recently admitted for PNA at [facility]. In the ED he underwent extensive evaluation. T 98.5F, BP 115/77, HR 88, RR 20, 94% on 3L NC. CBC, Coag panel, CMP significant for WBC 16.1, RBC 3.9, Hg 12, Hct 35.1, Na 135, BUN 26, Cr 1.42, glu 137, total protein 5.8. Troponin 0.024. BNP 804. COVID, RSV, Flu negative. EKG sinus rhythm, RBBB. CXR COPD changes and patchy PNA posterior right base. Started on Rocephin and Azithromycin and bronchodilators for concerns for CAP. Pulmonary consulted. Pro- judi negative, antibiotics discontinued. 05/09 Patient was seen and examined. Reports slight improvement in breathing. 30% back to normal. CBC and BMP significant for WBC 16.51, RBC 3.52, Hg 10.7, Hct 32, Na 136, BUN 36, glu 163. Procal was negative so antibiotics have been discontinued. Legionella Ag negative. BCx negative so far. Sputum Cx many PMN, many G+ cocci, fever G+ bacilli, few G- bacilli. 05/10 Patient was seen and examined. Improved breathing but not quite back to baseline. 98% on 2L NC. Maintained on bronchodilators and SoluMedrol. Pulmonary recommends continued management. CBC and BMP significant for WBC 17.29, RBC 3.56, Hg 10.8, Hct 32.3, AG 13.6, BUN 39.1, Cr 1.6, glu 187, Ca 8.6. Vital signs reviewed General: non toxic, no distress, appears at stated age, normal weight Derm: no unusual rashes/lesions, warm Head: atraumatic, normocephalic, symmetric Eyes: EOMI, no lid lag, anicteric sclera ENT: Nose and ears atraumatic Neck: No cervical lymphadenopathy, trachea midline, supple Cardiovascular: S1S2 reg, no murmur, no edema Lungs: Decreased BS bilateral, + ronchi at the bases, no accessory muscle use Ext: muscle strength 5 out of 5 in all 4 extremities grossly, no gross muscle atrophy, no contractures, Neuro: no gross focal neuro deficits Psych: Alert, oriented, appropriate affect Based on my assessment of this patient, this patient meets a high complexity level of care. Acute on chronic hypoxic respiratory failure Acute on chronic COPD exacerbation: DuoNeb QID scheduled and Q2H PRN for SOB/wheezing. Symbicort 2 INH BID. SoluMedrol 60 mg IV Q6H. Singulair 10 mg PO QHS. Pulmonary on board. Leukocytosis likely steroid induced Recent diagnosis of pneumonia, completed course of antibiotics Systolic CHF EF 40-45%: Appears euvolemic. May benefit from MCKINLEY/ARB if BP permits. Chronic kidney disease with Cr appearing at baseline Hypertension: Metoprolol as below. Dyslipidemia: Lipitor as below. CAD post CABG: ASA 81 mg PO QD. Lipitor 40 mg PO QHS. Plavix 75 mg PO QD. Metoprolol 25 mg PO QD. AAA with stent Carotid stenosis post endarterectomy CODE STATUS: FULL CODE DVT Prophylaxis: Heparin SQ GI Prophylaxis: Protonix PO BID Designated medical POA if patient is not able to make medical decisions for themselves: I have reviewed the following professional services consultant notes: Pulmonary I have reviewed the results of the following tests: CBC, BMP I have ordered the following tests: I have discussed the care of this patient with the following independent historian: I have independently interpreted the following test below: I have discussed the management of this patient with the following physician: Objective - Vital Signs Vital signs: Vital Signs Temp 97.5 F L 05/10/24 07:12 Pulse 70 05/10/24 07:12 Resp 18 05/10/24 07:12 BP 144/78 05/10/24 07:12 Pulse Ox 98 05/10/24 07:12 FiO2 Intake & Output 05/09/24 05/10/24 05/10/24 18:59 06:59 18:59 Weight 62 kg Other: # Voids 1 - Labs CBC & Chem 7: 05/10/24 05:58 05/10/24 05:58 Labs: Abnormal Lab Results - Last 24 Hours (Table) 05/09/24 Range/Units 06:19 WBC 16.51 H (4.50-10.00) X 10*3/uL RBC 3.52 L (4.40-5.60) X 10*6/uL Hgb 10.7 L (13.0-17.0) g/dL Hct 32.0 L (39.6-50.0) % RDW 15.1 H (11.5-14.5) % Immature Gran # 0.12 H (0.00-0.04) X 10*3/uL Neutrophils # 15.08 H (1.80-7.70) X 10*3/uL Eosinophils # 0 L (0.04-0.35) X 10*3/uL Microbiology - Last 24 Hours (Table) 05/07/24 17:40 Blood Culture - Preliminary Blood 05/08/24 19:42 Gram Stain - Preliminary Sputum
[2024-05-10] MEDS: guaiFENesin-DM 600/30MG 1 EACH TAB.ER.12H PO PRN (21:13)
--- NOTE | 2024-05-11 10:41 | P.PN ---
Subjective Progress Note Date: 05/11/24 This is a pleasant 79-year-old male patient with a known history of oxygen dependent chronic obstructive pulmonary disease with chronic and ongoing tobacco dependence of greater than 60 years FEV1 value 39% of predicted. He also has a history of non-Hodgkin's lymphoma, coronary artery disease with previous coronary artery bypass grafting, abdominal aortic aneurysm with stent placement in March 2022, carotid stenosis status post endarterectomy, ESBL E. coli on bronchial wash in 2021. He presented here to the emergency room yesterday with a 4-day history of increasing shortness of breath, cough and congestion. He states he was treated for pneumonia approximately 4 weeks ago and is currently still on 10 mg of prednisone. Chest x-ray reveals airspace opacities in the right lung base. Evidence of COPD. White count 16.1. Hemoglobin 12.0. Platelets 190. Sodium 135. Potassium 4.2. Bicarb 26. BUN 26. Creatinine 1.42. Glucose 137. Viral screen is negative. proBNP 804. Troponin 0.024. He is seen today in consultation in the emergency department. He is currently sitting up at the bedside. Awake and alert in no acute distress. He is dyspneic with conversation. Dyspneic with minimal exertion. He is maintaining O2 saturations in the 90s on 3 L/min per nasal cannula. He is afebrile. Hemodynamically stable. He has been initiated on DuoNeb inhalations, Symbicort, Singulair, Solu-Medrol. Antibiotics in the form of ceftriaxone and azithromycin. On oral diuretics. The patient is seen today May 09, 2024 in follow-up on the regular medical floor. He is currently sitting up in bed. Awake and alert in no acute distress. Breathing easier today compared to yesterday. He is maintaining O2 saturations in the 90s on 2 L/min per nasal cannula. Blood cultures are pending. Sodium 136. Potassium 4.9. Bicarb 26. BUN 36. Creatinine 1.21. Glucose 163. Procalcitonin negative at 0.30. Antibiotics discontinued. The patient is seen today May 10, 2020 for follow-up on the regular medical floor. He has been up ambulating in his room. Awake and alert in no acute distress. Maintaining good O2 saturations in the high 90s on 2 L/min per nasal cannula. He is afebrile. Hemodynamically stable. He remains on DuoNeb inhalations, Singulair, Symbicort, Solu-Medrol. Heparin for DVT prophylaxis. NicoDerm patch in place. Sputum culture pending. The patient is seen today to May 11, 2024 in follow-up on the regular medical floor. He is currently sitting up in a chair at the bedside. Awake and alert in no acute distress. Feeling better today compared to yesterday. Less shortness of breath. Less dyspnea on exertion. He is maintaining O2 saturations in the 90s on 2 L/min per nasal cannula. He still has a productive cough of clear sputum. Cultures were positive for few Pseudomonas, most likely colonized. He remains on DuoNeb inhalations, Symbicort, Singulair, Solu-Medrol. Continued on Mucinex. NicoDerm patch in place. Objective - Vital Signs Vital signs: Vital Signs Temp 98.6 F 05/11/24 07:14 Pulse 79 05/11/24 08:44 Resp 18 05/11/24 08:44 BP 120/68 05/11/24 07:14 Pulse Ox 93 L 05/11/24 07:14 FiO2 Intake & Output 05/10/24 05/11/24 05/11/24 18:59 06:59 18:59 Weight 62.5 kg Other: Voiding Method Toilet Urinal # Voids 1 1 - Exam GENERAL EXAM: Alert, 79-year-old male, sitting up in a chair, on 2 L nasal cannula, in no apparent distress. HEAD: Normocephalic. EYES: Normal reaction of pupils, equal size. NOSE: Clear with pink turbinates. THROAT: No erythema or exudates. NECK: No masses, no JVD. CHEST: No chest wall deformity. LUNGS: Equal air entry with bilateral end expiratory wheeze, diminished. CVS: S1 and S2 normal with no audible murmur, regular rhythm. ABDOMEN: No hepatosplenomegaly, normal bowel sounds, no guarding or rigidity. SPINE: No scoliosis or deformity SKIN: No rashes CENTRAL NERVOUS SYSTEM: No focal deficits, tone is normal in all 4 extremities. EXTREMITIES: There is no peripheral edema. No clubbing, no cyanosis. Peripheral pulses are intact. - Labs CBC & Chem 7: 05/10/24 05:58 05/10/24 05:58 Labs: Abnormal Lab Results - Last 24 Hours (Table) 05/10/24 05/10/24 Range/Units 05:58 05:58 WBC 17.29 H (4.50-10.00) X 10*3/uL RBC 3.56 L (4.40-5.60) X 10*6/uL Hgb 10.8 L (13.0-17.0) g/dL Hct 32.3 L (39.6-50.0) % RDW 15.1 H (11.5-14.5) % Immature Gran # 0.20 H (0.00-0.04) X 10*3/uL Neutrophils # 15.84 H (1.80-7.70) X 10*3/uL Lymphocytes # 0.84 L (0.90-5.00) X 10*3/uL Eosinophils # 0 L (0.04-0.35) X 10*3/uL Anion Gap 13.60 H (4.00-12.00) mmol/L BUN 39.1 H (9.0-27.0) mg/dL Creatinine 1.6 H (0.6-1.5) mg/dL Est GFR (CKD-EPI) 43 L (>=60) BUN/Creatinine Ratio 24.44 H (12.00-20.00) Ratio Glucose 187 H (70-110) mg/dL Calcium 8.6 L (8.7-10.3) mg/dL Microbiology - Last 24 Hours (Table) 05/08/24 19:42 Gram Stain - Final Sputum Sputum Culture - Final Pseudomonas aeruginosa 05/07/24 17:40 Blood Culture - Preliminary Blood Assessment and Plan Assessment: Acute on chronic hypoxemic respiratory failure secondary to an acute exacerbation of chronic obstructive pulmonary disease. Sputum culture showing few Pseudomonas, suspect colonized Oxygen dependent chronic obstructive pulmonary disease with an FEV1 value 39% of predicted Chronic tobacco dependence of greater than 60 years Recent admission to [facility] for 1 week with pneumonia and completed 12 days of antibiotics History of non-Hodgkin's lymphoma Coronary disease with previous coronary artery bypass surgery in 2001 History of abdominal aortic aneurysm status post stent placement in March 2022 Carotid stenosis status post endarterectomy History of ESBL E. coli and bronchial wash in 2021 Hyperlipidemia Hypertension Plan: The patient was seen and evaluated Medications reviewed Continue bronchodilators, steroids Sputum culture showing few Pseudomonas May require bronchoscopy if no significant improvment I have personally seen and examined the patient, performed the documentation and the assessment and plan as written. Number of minutes spent on the visit: 10.
--- NOTE | 2024-05-11 10:56 | P.PN ---
Subjective Progress Note Date: 05/11/24 79 year old M with PMH of systolic CHF with EF 40 to 45%, COPD on home O2, chronic kidney disease, hypertension, hyperlipidemia, non-Hodgkins lymphoma, CAD with CABG, AAA with stent, carotid stenosis with endarterectomy presents to the ED for shortness of breath. Noted Tmax 102F at home. Recently admitted for PNA at [facility]. In the ED he underwent extensive evaluation. T 98.5F, BP 115/77, HR 88, RR 20, 94% on 3L NC. CBC, Coag panel, CMP significant for WBC 16.1, RBC 3.9, Hg 12, Hct 35.1, Na 135, BUN 26, Cr 1.42, glu 137, total protein 5.8. Troponin 0.024. BNP 804. COVID, RSV, Flu negative. EKG sinus rhythm, RBBB. CXR COPD changes and patchy PNA posterior right base. Started on Rocephin and Azithromycin and bronchodilators for concerns for CAP. Pulmonary consulted. Pro- judi negative, antibiotics discontinued. 05/09 Patient was seen and examined. Reports slight improvement in breathing. 30% back to normal. CBC and BMP significant for WBC 16.51, RBC 3.52, Hg 10.7, Hct 32, Na 136, BUN 36, glu 163. Procal was negative so antibiotics have been discontinued. Legionella Ag negative. BCx negative so far. Sputum Cx many PMN, many G+ cocci, fever G+ bacilli, few G- bacilli. 05/10 Patient was seen and examined. Improved breathing but not quite back to baseline. 98% on 2L NC. Maintained on bronchodilators and SoluMedrol. Pulmonary recommends continued management. CBC and BMP significant for WBC 17.29, RBC 3.56, Hg 10.8, Hct 32.3, AG 13.6, BUN 39.1, Cr 1.6, glu 187, Ca 8.6. 05/11 Patient was seen and examined. Breathing improved slowly. 93% on 2L NC. Maintained on bronchodilators and SoluMedrol. Sputum Cx growing pseudomonas. Appears he was discharged on Levaquin from his previous hospitalization in [facility]. He has completed a course of antibiotics for this infection. Pulmonary recommends continued management, bronchoscopy if not improved. BMP is pending this morning. General: non toxic, no distress, appears at stated age, normal weight Derm: no unusual rashes/lesions, warm Head: atraumatic, normocephalic, symmetric Eyes: EOMI, no lid lag, anicteric sclera ENT: Nose and ears atraumatic Neck: No cervical lymphadenopathy, trachea midline, supple Cardiovascular: S1S2 reg, no murmur, no edema Lungs: Decreased BS bilateral, + ronchi at the bases, no accessory muscle use Ext: muscle strength 5 out of 5 in all 4 extremities grossly, no gross muscle atrophy, no contractures, Neuro: no gross focal neuro deficits Psych: Alert, oriented, appropriate affect Based on my assessment of this patient, this patient meets a high complexity level of care. Acute on chronic hypoxic respiratory failure Acute on chronic COPD exacerbation: DuoNeb QID scheduled and Q2H PRN for SOB/w heezing. Symbicort 2 INH BID. SoluMedrol 60 mg IV Q6H. Singulair 10 mg PO QHS. Pulmonary on board. Leukocytosis likely steroid induced Recent diagnosis of pneumonia, completed course of antibiotics Systolic CHF EF 40-45%: Appears euvolemic. May benefit from MCKINLEY/ARB if BP permits. Chronic kidney disease with Cr appearing at baseline Hypertension: Metoprolol as below. Dyslipidemia: Lipitor as below. CAD post CABG: ASA 81 mg PO QD. Lipitor 40 mg PO QHS. Plavix 75 mg PO QD. Metoprolol 25 mg PO QD. AAA with stent Carotid stenosis post endarterectomy CODE STATUS: FULL CODE DVT Prophylaxis: Heparin SQ GI Prophylaxis: Protonix PO BID Designated medical POA if patient is not able to make medical decisions for themselves: I have reviewed the following sales operations consultant notes: Pulmonary I have reviewed the results of the following tests: Sputum Cx I have ordered the following tests: BMP pending I have discussed the care of this patient with the following independent historian: RN I have independently interpreted the following test below: I have discussed the management of this patient with the following physician: Objective - Vital Signs Vital signs: Vital Signs Temp 98.6 F 05/11/24 07:14 Pulse 76 05/11/24 08:34 Resp 18 05/11/24 07:14 BP 120/68 05/11/24 07:14 Pulse Ox 93 L 05/11/24 07:14 FiO2 Intake & Output 05/10/24 05/11/24 05/11/24 18:59 06:59 18:59 Weight 62.5 kg Other: # Voids 1 1 - Labs CBC & Chem 7: 05/10/24 05:58 05/10/24 05:58 Labs: Abnormal Lab Results - Last 24 Hours (Table) 05/10/24 05/10/24 Range/Units 05:58 05:58 WBC 17.29 H (4.50-10.00) X 10*3/uL RBC 3.56 L (4.40-5.60) X 10*6/uL Hgb 10.8 L (13.0-17.0) g/dL Hct 32.3 L (39.6-50.0) % RDW 15.1 H (11.5-14.5) % Immature Gran # 0.20 H (0.00-0.04) X 10*3/uL Neutrophils # 15.84 H (1.80-7.70) X 10*3/uL Lymphocytes # 0.84 L (0.90-5.00) X 10*3/uL Eosinophils # 0 L (0.04-0.35) X 10*3/uL Anion Gap 13.60 H (4.00-12.00) mmol/L BUN 39.1 H (9.0-27.0) mg/dL Creatinine 1.6 H (0.6-1.5) mg/dL Est GFR (CKD-EPI) 43 L (>=60) BUN/Creatinine Ratio 24.44 H (12.00-20.00) Ratio Glucose 187 H (70-110) mg/dL Calcium 8.6 L (8.7-10.3) mg/dL Microbiology - Last 24 Hours (Table) 05/07/24 17:40 Blood Culture - Preliminary Blood 05/08/24 19:42 Gram Stain - Preliminary Sputum Sputum Culture - Preliminary Pseudomonas aeruginosa
[2024-05-11 12:37] LABS: BUN/Creat Ratio 22.33 Ratio (12.00-20.00); Blood Urea Nitrogen 40.2 mg/dL (9.0-27.0); Calcium 8.6 mg/dL (8.7-10.3); Carbon Dioxide 27.2 mmol/L (21.6-31.8); Chloride 102 mmol/L (96-109); Glucose 213 mg/dL (70-110); Potassium 4.8 mmol/L (3.5-5.5); Sodium 140 mmol/L (135-145)
[2024-05-12 10:01] LABS: Basophils % (A) 0 %; Eosinophils % (A) 0 %; HCT 35.2 % (39.0-53.0); HGB 11.9 gm/dL (13.0-17.5); Hypochromasia Slight; Lymphocytes # (A) 0.6 k/uL (1.0-4.8); Lymphocytes % (A) 4 %; MCH 31.3 pg (25.0-35.0); MCHC 33.7 g/dL (31.0-37.0); MCV 92.8 fL (80.0-100.0); Mean Platelet Volume 8.3; Monocytes # (A) 0.5 k/uL (0-1.0); Monocytes % (A) 3 %; Neutrophils # (A) 13.7 k/uL (1.3-7.7); Neutrophils % (A) 92 %; Platelet Count 252 k/uL (150-450); RDW 14.9 % (11.5-15.5); WBC 14.9 k/uL (3.8-10.6)
[2024-05-12 10:15] LABS: African American GFR (CKD) 47 (>60 ml/min/1.73 sqM); Anion Gap 7 mmol/L; Blood Urea Nitrogen 54 mg/dL (9-20); Calcium 8.9 mg/dL (8.4-10.2); Carbon Dioxide 29 mmol/L (22-30); Chloride 100 mmol/L (98-107); Glucose 306 mg/dL (74-99); Non-African American GFR(CKD) 41 (>60 ml/min/1.73 sqM); Potassium 4.9 mmol/L (3.5-5.1); Sodium 136 mmol/L (137-145)
[2024-05-12] MEDS: CEFEPIME 2 GM in SODIUM CHLORIDE 0.9% 100 ML IVPB SCH (12:11)
--- NOTE | 2024-05-12 13:28 | P.PN ---
Subjective Progress Note Date: 05/12/24 Hospital course 79 year old M with PMH of systolic CHF with EF 40 to 45%, COPD on home O2, chronic kidney disease, hypertension, hyperlipidemia, non-Hodgkins lymphoma, CAD with CABG, AAA with stent, carotid stenosis with endarterectomy presents to the ED for shortness of breath. Noted Tmax 102F at home. Recently admitted for PNA at [facility]. In the ED he underwent extensive evaluation. T 98.5F, BP 115/77, HR 88, RR 20, 94% on 3L NC. CBC, Coag panel, CMP significant for WBC 16.1, RBC 3.9, Hg 12, Hct 35.1, Na 135, BUN 26, Cr 1.42, glu 137, total protein 5.8. Troponin 0.024. BNP 804. COVID, RSV, Flu negative. EKG sinus rhythm, RBBB. CXR COPD changes and patchy PNA posterior right base. Started on Rocephin and Azithromycin and bronchodilators for concerns for CAP. Pulmonary consulted. Pro- judi negative, antibiotics discontinued. Subjective Patient seen this morning. He is denying any acute complaints. Patient states that they have been weaning down his oxygen. He states that his breathing is improving since admission. Physical exam General examination - Alert and Oriented 3 in NAD Heart - + S1S2 no murmurs Lungs - Clear to auscultation Abdomen soft NT ND +ve BS Extremities - No edema FUR BLOWER - Moving all 4 extremities spontaneously Psych - Calm and cooperative Assessment and plan Acute on chronic hypoxic respiratory failure Acute on chronic COPD exacerbation: DuoNeb QID scheduled and Q2H PRN for SOB/wheezing. Symbicort 2 INH BID. SoluMedrol 60 mg IV Q6H. Singulair 10 mg PO QHS. Pulmonary on board. Pulmonology planning on doing bronchoscopy tomorrow. Patient currently weaning down on his oxygen. He is now on 2 L nasal cannula. At home patient wears oxygen as needed. Leukocytosis likely steroid induced. WBC this morning 14.9. Trending down Recent diagnosis of pneumonia, completed course of antibiotics sputum culture did grow a few Pseudomonas. Per pulmonology this is likely colonization and I discontinued his antibiotics. Systolic CHF EF 40-45%: Appears euvolemic. May benefit from MCKINLEY/ARB if BP permits. Resume torsemide 10 mg p.o. daily Chronic kidney disease with Cr appearing at baseline. Creatinine this morning is 1.57 which is around his baseline. Hypertension: Metoprolol as below. Dyslipidemia: Lipitor as below. CAD post CABG: ASA 81 mg PO QD. Lipitor 40 mg PO QHS. Plavix 75 mg PO QD. Metoprolol 25 mg PO QD. AAA with stent Carotid stenosis post endarterectomy CODE STATUS: FULL CODE DVT Prophylaxis: Heparin SQ GI Prophylaxis: Protonix PO BID Anticipated discharge: Waiting for pulmonology to clear patient for discharge Anticipated discharge location: Home Objective - Vital Signs Vital signs: Vital Signs Temp 97.7 F 05/12/24 13:17 Pulse 79 05/12/24 13:17 Resp 20 05/12/24 13:17 BP 131/71 05/12/24 13:17 Pulse Ox 96 05/12/24 13:17 FiO2 Intake & Output 05/11/24 05/12/24 05/12/24 18:59 06:59 18:59 Other: Voiding Method Toilet Urinal # Voids 1 3 # Bowel Movements 1 - Labs CBC & Chem 7: 05/12/24 09:32 05/12/24 09:32 Labs: Abnormal Lab Results - Last 24 Hours (Table) 05/12/24 05/12/24 Range/Units 09:32 09:32 WBC 14.9 H (3.8-10.6) k/uL RBC 3.80 L (4.30-5.90) m/uL Hgb 11.9 L (13.0-17.5) gm/dL Hct 35.2 L (39.0-53.0) % Neutrophils # 13.7 H (1.3-7.7) k/uL Lymphocytes # 0.6 L (1.0-4.8) k/uL Sodium 136 L (137-145) mmol/L BUN 54 H (9-20) mg/dL Creatinine 1.57 H (0.66-1.25) mg/dL Glucose 306 H (74-99) mg/dL Microbiology - Last 24 Hours (Table) 05/08/24 19:42 Gram Stain - Final Sputum Sputum Culture - Final Pseudomonas aeruginosa
--- NOTE | 2024-05-12 14:42 | P.PN ---
Subjective Progress Note Date: 05/12/24 This is a pleasant 79-year-old male patient with a known history of oxygen dependent chronic obstructive pulmonary disease with chronic and ongoing tobacco dependence of greater than 60 years FEV1 value 39% of predicted. He also has a history of non-Hodgkin's lymphoma, coronary artery disease with previous coronary artery bypass grafting, abdominal aortic aneurysm with stent placement in March 2022, carotid stenosis status post endarterectomy, ESBL E. coli on bronchial wash in 2021. He presented here to the emergency room yesterday with a 4-day history of increasing shortness of breath, cough and congestion. He states he was treated for pneumonia approximately 4 weeks ago and is currently still on 10 mg of prednisone. Chest x-ray reveals airspace opacities in the right lung base. Evidence of COPD. White count 16.1. Hemoglobin 12.0. Platelets 190. Sodium 135. Potassium 4.2. Bicarb 26. BUN 26. Creatinine 1.42. Glucose 137. Viral screen is negative. proBNP 804. Troponin 0.024. He is seen today in consultation in the emergency department. He is currently sitting up at the bedside. Awake and alert in no acute distress. He is dyspneic with conversation. Dyspneic with minimal exertion. He is maintaining O2 saturations in the 90s on 3 L/min per nasal cannula. He is afebrile. Hemodynamically stable. He has been initiated on DuoNeb inhalations, Symbicort, Singulair, Solu-Medrol. Antibiotics in the form of ceftriaxone and azithromycin. On oral diuretics. The patient is seen today May 09, 2024 in follow-up on the regular medical floor. He is currently sitting up in bed. Awake and alert in no acute distress. Breathing easier today compared to yesterday. He is maintaining O2 saturations in the 90s on 2 L/min per nasal cannula. Blood cultures are pendin g. Sodium 136. Potassium 4.9. Bicarb 26. BUN 36. Creatinine 1.21. Glucose 163. Procalcitonin negative at 0.30. Antibiotics discontinued. The patient is seen today May 10, 2020 for follow-up on the regular medical floor. He has been up ambulating in his room. Awake and alert in no acute distress. Maintaining good O2 saturations in the high 90s on 2 L/min per nasal cannula. He is afebrile. Hemodynamically stable. He remains on DuoNeb inhalations, Singulair, Symbicort, Solu-Medrol. Heparin for DVT prophylaxis. NicoDerm patch in place. Sputum culture pending. The patient is seen today to May 11, 2024 in follow-up on the regular medical floor. He is currently sitting up in a chair at the bedside. Awake and alert in no acute distress. Feeling better today compared to yesterday. Less shortness of breath. Less dyspnea on exertion. He is maintaining O2 saturatio ns in the 90s on 2 L/min per nasal cannula. He still has a productive cough of clear sputum. Cultures were positive for few Pseudomonas, most likely colonized. He remains on DuoNeb inhalations, Symbicort, Singulair, Solu-Medrol. Continued on Mucinex. NicoDerm patch in place. On today's evaluation of 05/12/2024, the patient continues to have a congested cough. His sputum sample was positive for Pseudomonas. This could be potentially colonizer versus a true infection. The patient could have an underlying tracheobronchitis as the patient is cough and constantly and he was unable to bring up much of sputum related to underlying COPD component of tracheobronchomalacia. His procalcitonin level was at 0.3. Clinically somewhat improved on bronchodilators and steroids. BUN is 54 with a creatinine 1.57 S1 level is 136, the white cell count is down to 14.9 with a hemoglobin of 11.9. The chest x-ray that was done on 05/08/2024 showed airspace opacity in the right lung base. He is currently on oxygen and is also on 2 L/min nasal cannula. No other complaints otherwise for now. Objective - Vital Signs Vital signs: Vital Signs Temp 97.4 F L 05/12/24 07:16 Pulse 76 05/12/24 08:50 Resp 16 05/12/24 07:16 BP 127/64 05/12/24 07:16 Pulse Ox 97 05/12/24 07:16 FiO2 Intake & Output 05/11/24 05/12/24 05/12/24 18:59 06:59 18:59 Other: Voiding Method Toilet Urinal # Voids 1 3 # Bowel Movements 1 - Exam GENERAL EXAM: Alert, 79-year-old male, sitting up in a chair, on 2 L nasal cannula, in no apparent distress. HEAD: Normocephalic. EYES: Normal reaction of pupils, equal size. NOSE: Clear with pink turbinates. THROAT: No erythema or exudates. NECK: No masses, no JVD. CHEST: No chest wall deformity. LUNGS: Equal air entry with bilateral end expiratory wheeze, diminished. CVS: S1 and S2 normal with no audible murmur, regular rhythm. ABDOMEN: No hepatosplenomegaly, normal bowel sounds, no guarding or rigidity. SPINE: No scoliosis or deformity SKIN: No rashes CENTRAL NERVOUS SYSTEM: No focal deficits, tone is normal in all 4 extremities. EXTREMITIES: There is no peripheral edema. No clubbing, no cyanosis. Peripheral pulses are intact. - Labs CBC & Chem 7: 05/12/24 09:32 05/12/24 09:32 Labs: Abnormal Lab Results - Last 24 Hours (Table) 05/11/24 05/12/24 05/12/24 Range/Units 05:46 09:32 09:32 WBC 14.9 H (3.8-10.6) k/uL RBC 3.80 L (4.30-5.90) m/uL Hgb 11.9 L (13.0-17.5) gm/dL Hct 35.2 L (39.0-53.0) % Neutrophils # 13.7 H (1.3-7.7) k/uL Lymphocytes # 0.6 L (1.0-4.8) k/uL Sodium 136 L (137-145) mmol/L BUN 40.2 H 54 H (9.0-27.0) mg/dL Creatinine 1.8 H 1.57 H (0.6-1.5) mg/dL Est GFR (CKD-EPI) 37 L (>=60) BUN/Creatinine Ratio 22.33 H (12.00-20.00) Ratio Glucose 213 H 306 H (70-110) mg/dL Calcium 8.6 L (8.7-10.3) mg/dL Microbiology - Last 24 Hours (Table) 05/08/24 19:42 Gram Stain - Final Sputum Sputum Culture - Final Pseudomonas aeruginosa Assessment and Plan Plan: Acute on chronic hypoxemic respiratory failure secondary to an acute exacerbation of chronic obstructive pulmonary disease. Sputum culture showing few Pseudomonas, suspect colonized versus true infection with tracheobronchitis. The patient's procalcitonin level is mildly elevated. The level is at 0.3. He does have some airspace disease in the right lung base and leukocytosis. Based on his advanced COPD and lung disease, the patient will be placed back on antibiotics. Oxygen dependent chronic obstructive pulmonary disease with an FEV1 value 39% of predicted Chronic tobacco dependence of greater than 60 years Recent admission to [facility] for 1 week with pneumonia and completed 12 days of antibiotics History of non-Hodgkin's lymphoma Coronary disease with previous coronary artery bypass surgery in 2001 History of abdominal aortic aneurysm status post stent placement in March 2022 Carotid stenosis status post endarterectomy History of ESBL E. coli and bronchial wash in 2021 Hyperlipidemia Hypertension Plan: The patient will be restarted on IV cefepime. Keep the patient n.p.o. after midnight for bronchoscopy and therapeutic airway suctioning in the morning. Continue bronchodilators, steroids Sputum culture showing few Pseudomonas Will continue to follow.
[2024-05-13] MEDS ORDERED: KETAMINE HCL IN 0.9 % NACL 50 MG/5 ML SYRINGE ONE (10:38)
[2024-05-13] MEDS: IV FLUID CONTINUATION 400 ML IV ONE (10:38)
[2024-05-13] MEDS ORDERED: MIDAZOLAM 2 MG/2 ML VIAL ONE (10:38)
[2024-05-13] MEDS ORDERED: LIDOCAINE 1% INJ 10MG/ML (20 ML MDV) ONE (10:38)
[2024-05-13] MEDS ORDERED: PROPOFOL 10 MG/ML 20 ML VIAL IV ONE (10:38)
--- NOTE | 2024-05-13 11:01 | P.PN ---
Subjective Progress Note Date: 05/13/24 Hospital course 79 year old M with PMH of systolic CHF with EF 40 to 45%, COPD on home O2, chronic kidney disease, hypertension, hyperlipidemia, non-Hodgkins lymphoma, CAD with CABG, AAA with stent, carotid stenosis with endarterectomy presents to the ED for shortness of breath. Noted Tmax 102F at home. Recently admitted for PNA at [facility]. In the ED he underwent extensive evaluation. T 98.5F, BP 115/77, HR 88, RR 20, 94% on 3L NC. CBC, Coag panel, CMP significant for WBC 16.1, RBC 3.9, Hg 12, Hct 35.1, Na 135, BUN 26, Cr 1.42, glu 137, total protein 5.8. Troponin 0.024. BNP 804. COVID, RSV, Flu negative. EKG sinus rhythm, RBBB. CXR COPD changes and patchy PNA posterior right base. Started on Rocephin and Azithromycin and bronchodilators for concerns for CAP. Pulmonary consulted. Pro- judi negative, antibiotics discontinued. Pulmonology then restarted patient antibiotics with IV cefepime. Pulmonology plans on doing bronchoscopy. Subjective Patient seen this morning. He states that his breathing is okay. Patient denying any acute complaints. He is aware that he is scheduled for bronchoscopy today. 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 Symbicort 2 INH BID. SoluMedrol 60 mg IV Q6H. Singulair 10 mg PO QHS. Pulmonary on board. Pulmonology planning on doing bronchoscopy today. Patient currently weaning down on his oxygen. He is now on 2 L nasal cannula. At home patient wears oxygen as needed. Leukocytosis likely steroid induced. WBC was trending down Recent diagnosis of pneumonia, completed course of antibiotics sputum culture did grow a few Pseudomonas. Per pulmonology this is likely colonization and I discontinued his antibiotics. Pulmonology then changed her mind and restarted the patient on IV cefepime. Systolic CHF EF 40-45%: Appears euvolemic. May benefit from MCKINLEY/ARB if BP permits. Resume torsemide 10 mg p.o. daily Chronic kidney disease with Cr appearing at baseline. Hypertension: Metoprolol . Dyslipidemia: Lipitor as below. CAD post CABG: ASA 81 mg PO QD. Lipitor 40 mg PO QHS. Plavix 75 mg PO QD. Metoprolol 25 mg PO QD. AAA with stent Carotid stenosis post endarterectomy CODE STATUS: FULL CODE DVT Prophylaxis: Heparin SQ GI Prophylaxis: Protonix PO BID Anticipated discharge: Waiting for pulmonology to clear patient for discharge Anticipated discharge location: Home Objective - Vital Signs Vital signs: Vital Signs Temp 97.6 F 05/13/24 06:34 Pulse 72 05/13/24 09:10 Resp 18 05/13/24 06:34 BP 159/79 05/13/24 06:34 Pulse Ox 98 05/13/24 06:34 FiO2 Intake & Output 05/12/24 05/13/24 05/13/24 18:59 06:59 18:59 Other: # Voids 4 - Labs CBC & Chem 7: 05/12/24 09:32 05/12/24 09:32 Labs: Microbiology - Last 24 Hours (Table) 05/07/24 17:40 Blood Culture - Final Blood
[2024-05-13] MEDS ORDERED: DEXTROSE 50% SYRINGE 50 ML IVP PRN ×2 (12:06)
[2024-05-13 12:47] LABS: Glucose,Whole Blood 251 mg/dL (70-110)
[2024-05-13] MEDS: INSULIN ASPART (NovoLOG) 100 UNIT/ML VIAL SQ SCH (13:07)
[2024-05-13 16:27] LABS: Glucose,Whole Blood 336 mg/dL (70-110)
[2024-05-13 21:00] LABS: Glucose,Whole Blood 322 mg/dL (70-110)
--- NOTE | 2024-05-13 22:05 | P.PN ---
Subjective Progress Note Date: 05/13/24 This is a pleasant 79-year-old male patient with a known history of oxygen dependent chronic obstructive pulmonary disease with chronic and ongoing tobacco dependence of greater than 60 years FEV1 value 39% of predicted. He also has a history of non-Hodgkin's lymphoma, coronary artery disease with previous coronary artery bypass grafting, abdominal aortic aneurysm with stent placement in March 2022, carotid stenosis status post endarterectomy, ESBL E. coli on bronchial wash in 2021. He presented here to the emergency room yesterday with a 4-day history of increasing shortness of breath, cough and congestion. He states he was treated for pneumonia approximately 4 weeks ago and is currently still on 10 mg of prednisone. Chest x-ray reveals airspace opacities in the right lung base. Evidence of COPD. White count 16.1. Hemoglobin 12.0. Platelets 190. Sodium 135. Potassium 4.2. Bicarb 26. BUN 26. Creatinine 1.42. Glucose 137. Viral screen is negative. proBNP 804. Troponin 0.024. He is seen today in consultation in the emergency department. He is currently sitting up at the bedside. Awake and alert in no acute distress. He is dyspneic with conversation. Dyspneic with minimal exertion. He is maintaining O2 saturations in the 90s on 3 L/min per nasal cannula. He is afebrile. Hemodynamically stable. He has been initiated on DuoNeb inhalations, Symbicort, Singulair, Solu-Medrol. Antibiotics in the form of ceftriaxone and azithromycin. On oral diuretics. The patient is seen today May 09, 2024 in follow-up on the regular medical floor. He is currently sitting up in bed. Awake and alert in no acute distress. Breathing easier today compared to yesterday. He is maintaining O2 saturations in the 90s on 2 L/min per nasal cannula. Blood cultures are pendin g. Sodium 136. Potassium 4.9. Bicarb 26. BUN 36. Creatinine 1.21. Glucose 163. Procalcitonin negative at 0.30. Antibiotics discontinued. The patient is seen today May 10, 2020 for follow-up on the regular medical floor. He has been up ambulating in his room. Awake and alert in no acute distress. Maintaining good O2 saturations in the high 90s on 2 L/min per nasal cannula. He is afebrile. Hemodynamically stable. He remains on DuoNeb inhalations, Singulair, Symbicort, Solu-Medrol. Heparin for DVT prophylaxis. NicoDerm patch in place. Sputum culture pending. The patient is seen today to May 11, 2024 in follow-up on the regular medical floor. He is currently sitting up in a chair at the bedside. Awake and alert in no acute distress. Feeling better today compared to yesterday. Less shortness of breath. Less dyspnea on exertion. He is maintaining O2 saturatio ns in the 90s on 2 L/min per nasal cannula. He still has a productive cough of clear sputum. Cultures were positive for few Pseudomonas, most likely colonized. He remains on DuoNeb inhalations, Symbicort, Singulair, Solu-Medrol. Continued on Mucinex. NicoDerm patch in place. On today's evaluation of 05/12/2024, the patient continues to have a congested cough. His sputum sample was positive for Pseudomonas. This could be potentially colonizer versus a true infection. The patient could have an underlying tracheobronchitis as the patient is cough and constantly and he was unable to bring up much of sputum related to underlying COPD component of tracheobronchomalacia. His procalcitonin level was at 0.3. Clinically somewhat improved on bronchodilators and steroids. BUN is 54 with a creatinine 1.57 S1 level is 136, the white cell count is down to 14.9 with a hemoglobin of 11.9. The chest x-ray that was done on 05/08/2024 showed airspace opacity in the right lung base. He is currently on oxygen and is also on 2 L/min nasal cannula. No other complaints otherwise for now. 05/13/2024, the patient is on IV cefepime regarding ongoing pseudomonal tracheobronchitis/pneumonia. Limited improvement since yesterday. In fact antibiotics have somewhat helped the patient and the patient is currently on 2 L of oxygen by nasal cannula with pulse ox of 97%. No new labs are available from today. Remains on DuoNeb nebulized treatments [id number]. Remains on Symbicort. Remains on IV Solu-Medrol 60 mg every 6 hours. Remains on Demadex 10 mg p.o. daily. No signs of any fluid overload. The plan is to do a bronchoscopy and therapeutic airway suctioning and bronchial lavage today. The patient has been kept NPO. Objective - Vital Signs Vital signs: Vital Signs Temp 97.6 F 05/13/24 06:34 Pulse 72 05/13/24 09:10 Resp 18 05/13/24 07:55 BP 159/79 05/13/24 06:34 Pulse Ox 98 05/13/24 06:34 FiO2 Intake & Output 05/12/24 05/13/24 05/13/24 18:59 06:59 18:59 Intake Total 100 Balance 100 Intake: IV 100 Other: Voiding Method Toilet Urinal # Voids 4 - Exam GENERAL EXAM: Alert, 79-year-old male, sitting up in a chair, on 2 L nasal cannula, in no apparent distress. HEAD: Normocephalic. EYES: Normal reaction of pupils, equal size. NOSE: Clear with pink turbinates. THROAT: No erythema or exudates. NECK: No masses, no JVD. CHEST: No chest wall deformity. LUNGS: Equal air entry with bilateral end expiratory wheeze, diminished. CVS: S1 and S2 normal with no audible murmur, regular rhythm. ABDOMEN: No hepatosplenomegaly, normal bowel sounds, no guarding or rigidity. SPINE: No scoliosis or deformity SKIN: No rashes CENTRAL NERVOUS SYSTEM: No focal deficits, tone is normal in all 4 extremities. EXTREMITIES: There is no peripheral edema. No clubbing, no cyanosis. Periph eral pulses are intact. - Labs CBC & Chem 7: 05/12/24 09:32 05/12/24 09:32 Labs: Microbiology - Last 24 Hours (Table) 05/07/24 17:40 Blood Culture - Final Blood Assessment and Plan Plan: Acute on chronic hypoxemic respiratory failure secondary to an acute exacerbation of chronic obstructive pulmonary disease. Sputum culture showing few Pseudomonas, suspect colonized versus true infection with tracheobronchitis. The patient's procalcitonin level is mildly elevated. The level is at 0.3. He does have some airspace disease in the right lung base and leukocytosis. Based on his advanced COPD and lung disease, the patient will be placed back on antibiotics. Oxygen dependent chronic obstructive pulmonary disease with an FEV1 value 39% of predicted Chronic tobacco dependence of greater than 60 years Recent admission to [facility] for 1 week with pneumonia and completed 12 days of antibiotics History of non-Hodgkin's lymphoma Coronary disease with previous coronary artery bypass surgery in 2001 History of abdominal aortic aneurysm status post stent placement in March 2022 Carotid stenosis status post endarterectomy History of ESBL E. coli and bronchial wash in 2021 Hyperlipidemia Hypertension Plan: Continue IV cefepime Patient is n.p.o. and the patient will have a bronchoscopy today Continue bronchodilators, steroids Sputum culture showing few Pseudomonas Will continue to follow.
--- NOTE | 2024-05-13 22:08 | P.PCN ---
Date of Procedure: 05/13/24 Preoperative Diagnosis: Pseudomonal pneumonia/tracheobronchitis Postoperative Diagnosis: Same Procedure(s) Performed: Bronchoscopy, therapeutic airway suctioning, removal of mucous plugs, bronchial lavage Anesthesia: MAC Surgeon: Neli Cano Estimated Blood Loss (ml): 0 Pathology: other Condition: stable Disposition: floor Operative Findings: This procedure was done in the endoscopy suite. Consent was obtained. Timeout was done. The patient was placed on a simple full facemask at 10 L. Anesthetic agent was given by anesthesia at the bedside. The patient was hemodynamically stable. After achieving adequate sedation, the flexor bronchoscope was introduced through the right nostril and it was gradually Yuan into the posterior pharynx and in the larynx. Some loose respiratory secretions identified in the upper airways that was suctioned out without any major difficulties. Epiglottis, arytenoids and the vallecula and the vocal cords without expected and a upper airway structures were all within normal limits. The patient had a normal abduction and adduction of the vocal cords. A total of 2 cc of 1% lidocaine was applied to the vocal cord following that the bronchoscope was advanced to the upper trachea. Examination airway was done. Copious amount of thick purulent respiratory secretions identified throughout the patient's airways and the secretions were copious. Infected secretions were quite thick causing repeated plugging of the working chamber of the bronchoscope. As such, the bronchoscope had to be removed and reinserted on multiple occasions. Airway patency was achieved after evacuating the airways from copious amount of respiratory secretions that were purulent, creamy and thick. However inspection was completed after therapeutic airway suctioning. Visualized airways included trachea, right mainstem bronchus, left mainstem bronchus, on the right side the airway suspected involved right upper lobe bronchus, right middle lobe bronchus, right lower lobe bronchus and bronchus intermedius elevated stent segments on the right and examination of the left included left upper lobe bronchus and left lower lobe bronchus and the various 8 segments on the left. The bronchial mucosa was inflamed and edematous and erythematous. After completing the therapeutic airway suctioning and airway inspection, bronchial lavage was done of the left lower lobe. A total of 40 cc of fluid was infused and 10 cc of cloudy aspirate was obtained. The patient remained hemodynamically stable. The bronchial lavage will be sent for microbial cultures. Bronchoscope was removed and the patient was transferred to recovery in stable condition.
[2024-05-14 03:36] VITALS: TEMP 98
[2024-05-14 06:22] LABS: Glucose,Whole Blood 249 mg/dL (70-110)
[2024-05-14 07:06] VITALS: BP 120/64; RESP 18
[2024-05-14 09:05] LABS: BUN/Creat Ratio 30.22 Ratio (12.00-20.00); Blood Urea Nitrogen 54.4 mg/dL (9.0-27.0); Calcium 8.6 mg/dL (8.7-10.3); Carbon Dioxide 28.8 mmol/L (21.6-31.8); Chloride 97 mmol/L (96-109); Glucose 276 mg/dL (70-110); Potassium 4.7 mmol/L (3.5-5.5); Sodium 138 mmol/L (135-145)
[2024-05-14 09:07] LABS: Basophils # (A) 0.02 X 10*3/uL (0.00-0.10); Basophils % (A) 0.1 %; Eosinophils # (A) 0 X 10*3/uL (0.04-0.35); Eosinophils % (A) 0 %; HGB 11.5 g/dL (13.0-17.0); Lymphocytes # (A) 0.58 X 10*3/uL (0.90-5.00); Lymphocytes % (A) 3.8 %; MCH 30.7 pg (27.0-32.0); MCHC 33.8 g/dL (32.0-37.0); MCV 90.7 FL (80.0-97.0); Mean Platelet Volume 11.4 FL (9.5-12.2); Monocytes # (A) 0.36 X 10*3/uL (0.20-1.00); Monocytes % (A) 2.4 %; NRBC Per 100 WBC 0 X 10*3/uL (0.00-0.01); Neutrophils # (A) 13.91 X 10*3/uL (1.80-7.70); Platelet Count 232 X 10*3/uL (140-440); RBC 3.75 X 10*6/uL (4.40-5.60); RDW 15.3 % (11.5-14.5); WBC 15.29 X 10*3/uL (4.50-10.00)
--- NOTE | 2024-05-14 09:26 | P.DS ---
Providers Date of admission: 05/07/24 21:50 Attending physician: Candy Ricks MD Consults: 05/07/24 21:50 Consult Physician Routine Consulting Provider: Neli Cano Consult Reason/Comments: pneumonia Do you want consulting provider notified?: Yes Primary care physician: Monster Kinney Hospital Course: Discharge Diagnosis: Acute on chronic hypoxic respiratory failure Acute on chronic COPD exacerbation Pseudomonas pneumonia Sepsis on admission Chronic systolic heart failure Chronic kidney disease stage III Hypertension Dyslipidemia Coronary disease status post CABG Carotid stenosis status post endarterectomy Hospital Course: 79 year old M with PMH of systolic CHF with EF 40 to 45%, COPD on home O2, chronic kidney disease, hypertension, hyperlipidemia, non-Hodgkins lymphoma, CAD with CABG, AAA with stent, carotid stenosis with endarterectomy presents to the ED for shortness of breath. Noted Tmax 102F at home. Recently admitted for PNA at [facility]. In the ED he underwent extensive evaluation. T 98.5F, BP 115/77, HR 88, RR 20, 94% on 3L NC. CBC, Coag panel, CMP significant for WBC 16.1, RBC 3.9, Hg 12, Hct 35.1, Na 135, BUN 26, Cr 1.42, glu 137, total protein 5.8. Troponin 0.024. BNP 804. COVID, RSV, Flu negative. EKG sinus rhythm, RBBB. CXR COPD changes and patchy PNA posterior right base. Started on Rocephin and Azithromycin and bronchodilators for concerns for CAP. Pulmonary consulted. Pro- judi negative, antibiotics discontinued. Sputum cultures grew Pseudomonas so pulmonology then restarted patient antibiotics with IV cefepime. Patient also had bronchoscopy with removal of mucous plug. Discussed with pulmonology who cleared patient for discharge. Pulmonology recommended 2 weeks of ciprofloxacin. Patient was also diagnosed with diabetes during this admission. His hemoglobin A1c was 7.3. Will start the patient on glipizide. Will have case aide arrange for glucometer. Nurse will provide patient with diabetic education. Patient did have leukocytosis at the time of discharge but I suspect this is due to WBC. His creatinine at the time of discharge 1.8 which is around his baseline. Vital signs reviewed and stable. General: [non toxic], [no distress], [appears at stated age] Derm: [warm], [dry] Head: [atraumatic], [normocephalic], [symmetric] Eyes: [EOMI], [no lid lag], [anicteric sclera] Mouth: [no lip lesion], [mucus membranes moist] Cardiovascular: [S1S2 reg], [no murmur], [positive posterior tibial pulse bilateral], Lungs: [CTA bilateral], [no rhonchi, no rales] , [no accessory muscle use] Abdominal: [soft], [ nontender to palpation], [no guarding], [no appreciable organomegaly] Ext: [no gross muscle atrophy], [no edema], [no contractures] Neuro: [ CN II-XI grossly intact], [no focal neuro deficits] Psych: [Alert], [oriented], [appropriate affect] A total of [33] minutes of time were spent preparing this complex discharge summary . Patient Condition at Discharge: Fair Plan - Discharge Summary Discharge Rx Participant: No New Discharge Prescriptions: New Ciprofloxacin HCl [Cipro] 500 mg PO Q12HR 14 Days #28 tab glipiZIDE 5 mg PO BID #60 tablet Continue [place]-3/Dha/Epa/Fish Oil [Fish Oil 1,000 mg Softgel] 1 cap PO DAILY Pantoprazole [Protonix] 40 mg PO BID Multivitamins, Thera [Multivitamin (formulary)] 1 tab PO DAILY Tiotropium 2.5 Mcg/Puff [Spiriva Respimat 2.5 Mcg] 2 puff INHALATION RT-DAILY predniSONE 10 mg PO DAILY Atorvastatin [Lipitor] 40 mg PO HS Albuterol Sulfate [Albuterol Sulfate Hfa] 2 puff INHALATION RT-Q6H Clopidogrel [Plavix] 75 mg PO DAILY Tamsulosin [Flomax] 0.4 mg PO HS Aspirin EC [Ecotrin Low Dose] 81 mg PO DAILY Torsemide [Demadex] 10 mg PO DAILY Metoprolol Succinate (ER) [Toprol XL] 25 mg PO DAILY Fluticasone Propion/Salmeterol [Fluticasone-Salmeterol 100-50] 1 puff I NHALATION RT-BID Montelukast [Singulair] 10 mg PO HS Discharge Medication List Aspirin EC [Ecotrin Low Dose] 81 mg PO DAILY 06/15/22 [History] Multivitamins, Thera [Multivitamin (formulary)] 1 tab PO DAILY 06/15/22 [History] [place]-3/Dha/Epa/Fish Oil [Fish Oil 1,000 mg Softgel] 1 cap PO DAILY 06/15/22 [History] Pantoprazole [Protonix] 40 mg PO BID 06/15/22 [History] Tamsulosin [Flomax] 0.4 mg PO HS 06/15/22 [History] Tiotropium 2.5 Mcg/Puff [Spiriva Respimat 2.5 Mcg] 2 puff INHALATION RT-DAILY 06/15/22 [History] Torsemide [Demadex] 10 mg PO DAILY 09/22/22 [History] Fluticasone Propion/Salmeterol [Fluticasone-Salmeterol 100-50] 1 puff INHALATION RT-BID 06/05/23 [History] Metoprolol Succinate (ER) [Toprol XL] 25 mg PO DAILY 06/05/23 [History] predniSONE 10 mg PO DAILY 11/06/23 [History] Albuterol Sulfate [Albuterol Sulfate Hfa] 2 puff INHALATION RT-Q6H 05/07/24 [History] Atorvastatin [Lipitor] 40 mg PO HS 05/07/24 [History] Clopidogrel [Plavix] 75 mg PO DAILY 05/07/24 [History] Montelukast [Singulair] 10 mg PO HS 05/07/24 [History] Ciprofloxacin HCl [Cipro] 500 mg PO Q12HR 14 Days #28 tab 05/14/24 [Rx] glipiZIDE 5 mg PO BID #60 tablet 05/14/24 [Rx] Follow up Appointment(s)/Referral(s): Monster Kinney DO [Primary Care Provider] - 1-2 days [facility], [NON-STAFF] - 1-2 Days ([facility] will call you to schedule your in home nursing and physical therapy visits. ) Neli Cano MD [STAFF PHYSICIAN] - 1 Week Discharge Disposition: HOME SELF-CARE
[2024-05-14 11:36] LABS: Glucose,Whole Blood 239 mg/dL (70-110)
[2024-05-14 12:07] VITALS: PULSE 76
--- NOTE | 2024-05-14 15:49 | P.PN ---
Subjective Progress Note Date: 05/14/24 This is a pleasant 79-year-old male patient with a known history of oxygen dependent chronic obstructive pulmonary disease with chronic and ongoing tobacco dependence of greater than 60 years FEV1 value 39% of predicted. He also has a history of non-Hodgkin's lymphoma, coronary artery disease with previous coronary artery bypass grafting, abdominal aortic aneurysm with stent placement in March 2022, carotid stenosis status post endarterectomy, ESBL E. coli on bronchial wash in 2021. He presented here to the emergency room yesterday with a 4-day history of increasing shortness of breath, cough and congestion. He states he was treated for pneumonia approximately 4 weeks ago and is currently still on 10 mg of prednisone. Chest x-ray reveals airspace opacities in the right lung base. Evidence of COPD. White count 16.1. Hemoglobin 12.0. Platelets 190. Sodium 135. Potassium 4.2. Bicarb 26. BUN 26. Creatinine 1.42. Glucose 137. Viral screen is negative. proBNP 804. Troponin 0.024. He is seen today in consultation in the emergency department. He is currently sitting up at the bedside. Awake and alert in no acute distress. He is dyspneic with conversation. Dyspneic with minimal exertion. He is maintaining O2 saturations in the 90s on 3 L/min per nasal cannula. He is afebrile. Hemodynamically stable. He has been initiated on DuoNeb inhalations, Symbicort, Singulair, Solu-Medrol. Antibiotics in the form of ceftriaxone and azithromycin. On oral diuretics. The patient is seen today May 09, 2024 in follow-up on the regular medical floor. He is currently sitting up in bed. Awake and alert in no acute distress. Breathing easier today compared to yesterday. He is maintaining O2 saturations in the 90s on 2 L/min per nasal cannula. Blood cultures are pendin g. Sodium 136. Potassium 4.9. Bicarb 26. BUN 36. Creatinine 1.21. Glucose 163. Procalcitonin negative at 0.30. Antibiotics discontinued. The patient is seen today May 10, 2020 for follow-up on the regular medical floor. He has been up ambulating in his room. Awake and alert in no acute distress. Maintaining good O2 saturations in the high 90s on 2 L/min per nasal cannula. He is afebrile. Hemodynamically stable. He remains on DuoNeb inhalations, Singulair, Symbicort, Solu-Medrol. Heparin for DVT prophylaxis. NicoDerm patch in place. Sputum culture pending. The patient is seen today to May 11, 2024 in follow-up on the regular medical floor. He is currently sitting up in a chair at the bedside. Awake and alert in no acute distress. Feeling better today compared to yesterday. Less shortness of breath. Less dyspnea on exertion. He is maintaining O2 saturatio ns in the 90s on 2 L/min per nasal cannula. He still has a productive cough of clear sputum. Cultures were positive for few Pseudomonas, most likely colonized. He remains on DuoNeb inhalations, Symbicort, Singulair, Solu-Medrol. Continued on Mucinex. NicoDerm patch in place. On today's evaluation of 05/12/2024, the patient continues to have a congested cough. His sputum sample was positive for Pseudomonas. This could be potentially colonizer versus a true infection. The patient could have an underlying tracheobronchitis as the patient is cough and constantly and he was unable to bring up much of sputum related to underlying COPD component of tracheobronchomalacia. His procalcitonin level was at 0.3. Clinically somewhat improved on bronchodilators and steroids. BUN is 54 with a creatinine 1.57 S1 level is 136, the white cell count is down to 14.9 with a hemoglobin of 11.9. The chest x-ray that was done on 05/08/2024 showed airspace opacity in the right lung base. He is currently on oxygen and is also on 2 L/min nasal cannula. No other complaints otherwise for now. 05/13/2024, the patient is on IV cefepime regarding ongoing pseudomonal tracheobronchitis/pneumonia. Limited improvement since yesterday. In fact antibiotics have somewhat helped the patient and the patient is currently on 2 L of oxygen by nasal cannula with pulse ox of 97%. No new labs are available from today. Remains on DuoNeb nebulized treatments [id number]. Remains on Symbicort. Remains on IV Solu-Medrol 60 mg every 6 hours. Remains on Demadex 10 mg p.o. daily. No signs of any fluid overload. The plan is to do a bronchoscopy and therapeutic airway suctioning and bronchial lavage today. The patient has been kept NPO. On today's evaluation of 05/14/2024, the patient is feeling well. The patient's post bronchoscopy and the patient is feeling much better, cough is less congested and the repeat cultures from [facility]. Based on that, the patient is being considered for discharge on oral ciprofloxacin. No new complaints. White cell count of 15 with a hemoglobin 11.5 and a platelet count of 232. BUN is 54 with a creatinine of 1.8 his sodium is at 138. Afebrile. Hemodynamically stable. Status post bronchoscopy that was done on 05/13/2024. Objective - Vital Signs Vital signs: Vital Signs Temp 98.0 F 05/14/24 07:05 Pulse 80 05/14/24 09:26 Resp 18 05/14/24 09:23 BP 120/64 05/14/24 07:05 Pulse Ox 96 05/14/24 07:05 FiO2 Intake & Output 05/13/24 05/14/24 05/14/24 18:59 06:59 18:59 Intake Total 100 300 Output Total 0 Balance 100 300 Intake: IV 100 Oral 300 Output: Urine 0 Other: Voiding Method Toilet Toilet Urinal Urinal # Voids 1 2 2 # Bowel Movements 1 - Exam GENERAL EXAM: Alert, 79-year-old male, sitting up in a chair, on 2 L nasal cannula, in no apparent distress. HEAD: Normocephalic. EYES: Normal reaction of pupils, equal size. NOSE: Clear with pink turbinates. THROAT: No erythema or exudates. NECK: No masses, no JVD. CHEST: No chest wall deformity. LUNGS: Equal air entry with bilateral end expiratory wheeze, diminished. CVS: S1 and S2 normal with no audible murmur, regular rhythm. ABDOMEN: No hepatosplenomegaly, normal bowel sounds, no guarding or rigidity. SPINE: No scoliosis or deformity SKIN: No rashes CENTRAL NERVOUS SYSTEM: No focal deficits, tone is normal in all 4 extremities. EXTREMITIES: There is no peripheral edema. No clubbing, no cyanosis. Peripheral pulses are intact. - Labs CBC & Chem 7: 05/14/24 04:14 05/14/24 04:14 Labs: Abnormal Lab Results - Last 24 Hours (Table) 05/13/24 05/13/24 05/13/24 Range/Units 12:45 16:25 20:58 WBC (4.50-10.00) X 10*3/uL RBC (4.40-5.60) X 10*6/uL Hgb (13.0-17.0) g/dL Hct (39.6-50.0) % RDW (11.5-14.5) % Immature Gran # (0.00-0.04) X 10*3/uL Neutrophils # (1.80-7.70) X 10*3/uL Lymphocytes # (0.90-5.00) X 10*3/uL Eosinophils # (0.04-0.35) X 10*3/uL Anion Gap (4.00-12.00) mmol/L BUN (9.0-27.0) mg/dL Creatinine (0.6-1.5) mg/dL Est GFR (CKD-EPI) (>=60) BUN/Creatinine Ratio (12.00-20.00) Ratio Glucose (70-110) mg/dL POC Glucose (mg/dL) 251 H 336 H 322 H (70-110) mg/dL Hemoglobin A1c (<=6.0) % Calcium (8.7-10.3) mg/dL 05/14/24 05/14/24 05/14/24 Range/Units 04:14 04:14 04:14 WBC 15.29 H (4.50-10.00) X 10*3/uL RBC 3.75 L (4.40-5.60) X 10*6/uL Hgb 11.5 L (13.0-17.0) g/dL Hct 34.0 L (39.6-50.0) % RDW 15.3 H (11.5-14.5) % Immature Gran # 0.42 H (0.00-0.04) X 10*3/uL Neutrophils # 13.91 H (1.80-7.70) X 10*3/uL Lymphocytes # 0.58 L (0.90-5.00) X 10*3/uL Eosinophils # 0 L (0.04-0.35) X 10*3/uL Anion Gap 12.20 H (4.00-12.00) mmol/L BUN 54.4 H (9.0-27.0) mg/dL Creatinine 1.8 H (0.6-1.5) mg/dL Est GFR (CKD-EPI) 37 L (>=60) BUN/Creatinine Ratio 30.22 H (12.00-20.00) Ratio Glucose 276 H (70-110) mg/dL POC Glucose (mg/dL) (70-110) mg/dL Hemoglobin A1c 7.3 H (<=6.0) % Calcium 8.6 L (8.7-10.3) mg/dL 05/14/24 Range/Units 06:20 WBC (4.50-10.00) X 10*3/uL RBC (4.40-5.60) X 10*6/uL Hgb (13.0-17.0) g/dL Hct (39.6-50.0) % RDW (11.5-14.5) % Immature Gran # (0.00-0.04) X 10*3/uL Neutrophils # (1.80-7.70) X 10*3/uL Lymphocytes # (0.90-5.00) X 10*3/uL Eosinophils # (0.04-0.35) X 10*3/uL Anion Gap (4.00-12.00) mmol/L BUN (9.0-27.0) mg/dL Creatinine (0.6-1.5) mg/dL Est GFR (CKD-EPI) (>=60) BUN/Creatinine Ratio (12.00-20.00) Ratio Glucose (70-110) mg/dL POC Glucose (mg/dL) 249 H (70-110) mg/dL Hemoglobin A1c (<=6.0) % Calcium (8.7-10.3) mg/dL Microbiology - Last 24 Hours (Table) 05/13/24 10:54 Gram Stain - Preliminary Bronchoalviolar Lavage - Left Bronchial Washings Culture - Preliminary Pseudomonas aeruginosa Assessment and Plan Plan: Acute on chronic hypoxemic respiratory failure secondary to an acute exacerbat ion of chronic obstructive pulmonary disease. Sputum culture showing few Pseudomonas, suspect colonized versus true infection with tracheobronchitis. The patient's procalcitonin level is mildly elevated. The level is at 0.3. He does have some airspace disease in the right lung base and leukocytosis. Based on his advanced COPD and lung disease, the patient will be placed back on antibiotics. Oxygen dependent chronic obstructive pulmonary disease with an FEV1 value 39% of predicted Chronic tobacco dependence of greater than 60 years Recent admission to [facility] for 1 week with pneumonia and completed 12 days of antibiotics History of non-Hodgkin's lymphoma Coronary disease with previous coronary artery bypass surgery in 2001 History of abdominal aortic aneurysm status post stent placement in March 2022 Carotid stenosis status post endarterectomy History of ESBL E. coli and bronchial wash in 2021 Hyperlipidemia Hypertension Plan: The patient is to be discharged home on oral ciprofloxacin. Bronchoscopy completed Continue bronchodilators, steroids Sputum culture showing few Pseudomonas and the repeat cultures from the bronchioloalveolar lavage is consistent with Pseudomonas aeruginosa Will continue to follow, will see me back in the office on outpatient basis in few weeks time.
== END 2024-05-14 13:14 | disposition home or self-care (01) | DRG 871 ==
LOC: EC 16:06 → 4SSUR 21:50
PROVIDERS: ADMIT Family Medicine; ATTEND Family Medicine
PROC: 0BCB8ZZ Extirpation of Matter from Left Lower Lobe Bronchus, Via Natural or Artificial Opening Endoscopic (ICD-10-PCS; principal; 2024-05-13 15:05)
PROC: 0B9B8ZZ Drainage of Left Lower Lobe Bronchus, Via Natural or Artificial Opening Endoscopic (ICD-10-PCS; 2024-05-13 15:05)
DX: A41.52 Sepsis due to Pseudomonas (principal); J15.1 Pneumonia due to Pseudomonas; J96.21 Acute and chronic respiratory failure with hypoxia; I13.0 Hypertensive heart and chronic kidney disease with heart failure and stage 1 through stage 4 chronic kidney disease, or unspecified chronic kidney disease; I50.22 Chronic systolic (congestive) heart failure; J44.0 Chronic obstructive pulmonary disease with (acute) lower respiratory infection; J44.1 Chronic obstructive pulmonary disease with (acute) exacerbation; N17.9 Acute kidney failure, unspecified; Z99.81 Dependence on supplemental oxygen; E11.22 Type 2 diabetes mellitus with diabetic chronic kidney disease; E78.5 Hyperlipidemia, unspecified; I25.10 Atherosclerotic heart disease of native coronary artery without angina pectoris; I45.10 Unspecified right bundle-branch block; I65.29 Occlusion and stenosis of unspecified carotid artery; I71.40 Abdominal aortic aneurysm, without rupture, unspecified; N18.30 Chronic kidney disease, stage 3 unspecified; T38.0X5A Adverse effect of glucocorticoids and synthetic analogues, initial encounter; Z79.02 Long term (current) use of antithrombotics/antiplatelets; Z79.82 Long term (current) use of aspirin; Z79.899 Other long term (current) drug therapy; Z85.72 Personal history of non-Hodgkin lymphomas; Z86.19 Personal history of other infectious and parasitic diseases; Z86.79 Personal history of other diseases of the circulatory system; Z87.01 Personal history of pneumonia (recurrent); Z95.1 Presence of aortocoronary bypass graft
CPT/HCPCS: 31624; 31645; 36415; 71045; 71046; 80048; 80053; 83036; 83880; 84145; 84484; 85025; 85610; 85730; 87040; 87070; 87077; 87102; 87116; 87186; 87205; 87206; 87449; 87496; 87498; 87502; 87529; 87634; 87635; 87636; 87798; 93005; 94640; 94760; 96365; 96366; 96367; 96375; 99285

== ENCOUNTER 2024-06-03 13:04 | Day surgery (SDC) | payer MEDICARE, BC ==
[2024-06-01 15:06] VITALS: BMI 23.8
[~2024-06-03 13:04] MED LIST: LACTATED RINGERS 1,000 ML IV SCH
[2024-06-03 13:41] VITALS: TEMP 97.6
[2024-06-03] MEDS: LACTATED RINGERS 1,000 ML IV SCH (13:42)
[2024-06-03] MEDS: LIDOCAINE 1% (10MG/ML) FOR IV START INTRADERMA ONE (13:42)
[2024-06-03] MEDS: IV FLUID CONTINUATION 1,000 ML IV ONE (13:42)
[2024-06-03 13:55] LABS: Glucose,Whole Blood 120 mg/dL (70-110)
[2024-06-03] MEDS ORDERED: MIDAZOLAM 2 MG/2 ML VIAL ONE (14:41)
[2024-06-03] MEDS ORDERED: KETAMINE HCL IN 0.9 % NACL 50 MG/5 ML SYRINGE ONE (14:41)
[2024-06-03] MEDS ORDERED: PROPOFOL 10 MG/ML 20 ML VIAL IV ONE (14:41)
[2024-06-03] MEDS ORDERED: LIDOCAINE 2% (PF) 20 MG/ML 5 ML VIAL ONE (14:41)
[2024-06-03] MEDS: LIDOCAINE 2% URO-JET JELLY 5 ML KIT MISCELLANE ONE (14:56)
[2024-06-03] MEDS: LIDOCAINE 2% INJ 20 MG/ML INTRATRACH ONE (14:57)
[2024-06-03 15:15] VITALS: RESP 14
[2024-06-03 15:26] VITALS: BP 126/65; PULSE 88
--- NOTE | 2024-06-03 15:28 | P.PCN ---
Date of Procedure: 06/03/24 Preoperative Diagnosis: Pseudomonal pneumonia Postoperative Diagnosis: Tracheobronchomalacia Loose respiratory secretions, rule out persistent pseudomonal infection post treatment of pseudomonal pneumonia. Procedure(s) Performed: Bronchoscopy and the bronchoalveolar lavage of the right lower lobe Anesthesia: MAC Surgeon: Neli Cano Estimated Blood Loss (ml): 0 Pathology: other Condition: stable Disposition: same day Operative Findings: This is a flexor bronchoscopy that was done in the endoscopy suite. The patient has history of pseudomonal pneumonia treated with IV antibiotics initially and subsequently completed a course of ciprofloxacin. He continues to have some cough and congestion for that reason a another bronchoscopy was done for therapeutic airway suctioning and bronchial lavage This procedure was done under conscious sedation. Anesthetic agent was a dministered by anesthesia at the bedside After achieving adequate sedation, the flexor bronchoscope was inserted through the right nostril and it was advanced to the posterior pharynx. Examination of the upper airway structures including posterior pharynx, larynx, epiglottis, vallecula and the vocal cords were all within normal limits. A total of 2 cc of 1% lidocaine was applied to the vocal cord and following that the bronchoscope was advanced into the upper trachea. There was evidence of tracheobronchomalacia. There was evidence of loose respiratory secretions and the amount of respiratory secretions improved considerably compared to his previous bronchoscopy. Respiratory secretions are essentially pulling in the lower lobes bilaterally more so on the right lower lobe. The bronchial mucosa had shown some mild mucosal inflammatory changes specially on the left. Inspected airways included trachea, bilateral mainstem bronchi, right upper lobe bronchus, bronchus and medius, right middle lobe bronchus, right lower lobe bronchus, there is 10 segments on the right, examination of the left side included left mainstem bronchus, left upper lobe bronchus and left lower lobe bronchus and the various 8 segments on the left. Noted the respiratory secretions were scant and much more loose. Those were irrigated with saline. The bronchial lavage of the right lower lobe was done. Therapeutic airway suctioning was done. After achieving adequate pulmonary toileting, the majority of respite secretions were suctioned out and the bronchoscope was removed and the patient was transferred to recovery in a stable condition.
== END 2024-06-03 16:00 | disposition home or self-care (01) ==
LOC: ORWHC2ENDO 13:04
PROVIDERS: ATTEND Internal Medicine Critical Care Medicine
DX: J15.1 Pneumonia due to Pseudomonas
CPT/HCPCS: 31624; 87070; 87075; 87077; 87186; 87205; 87496; 87498; 87502; 87529; 87634; 87635; 87798

== ENCOUNTER 2024-06-05 12:24 | Inpatient (IN) | payer MEDICARE, BC ==
[2024-06-05 13:02] LABS: ALT 37 U/L (4-49); AST 39 U/L (17-59); African American GFR (CKD) 54 (>60 ml/min/1.73 sqM); Albumin 3.2 g/dL (3.5-5.0); Alkaline Phosphatase 41 U/L (38-126); Anion Gap 5 mmol/L; Blood Urea Nitrogen 23 mg/dL (9-20); Calcium 8.4 mg/dL (8.4-10.2); Carbon Dioxide 27 mmol/L (22-30); Chloride 104 mmol/L (98-107); Glucose 79 mg/dL (74-99); Magnesium 1.3 mg/dL (1.6-2.3); Non-African American GFR(CKD) 47 (>60 ml/min/1.73 sqM); Potassium 3.8 mmol/L (3.5-5.1); Sodium 136 mmol/L (137-145); Total Bilirubin 0.7 mg/dL (0.2-1.3); Total Protein 5.3 g/dL (6.3-8.2)
--- NOTE | 2024-06-05 13:07 | XR ---
EXAMINATION TYPE: XR chest 2V DATE OF EXAM: 06/05/2024 COMPARISON: 05/08/2024 TECHNIQUE: PA and lateral views submitted. HISTORY: Fever FINDINGS: Emphysematous changes with postmedian sternotomy changes. Heart size normal. Atherosclerotic change a rosales. No new focal consolidation. Chronic scarring or atelectasis bilateral lung bases. No overt fail ure. Arthropathy of the shoulders and degenerative changes of the spine. Diffuse osteopenia. IMPRESSION: 1. COPD with stable basilar atelectasis or scarring favored over pneumonia. Correlate clinically. [facility] Stephanie Villaseñor, , 06/05/2024 1:05 PM
[2024-06-05 13:10] LABS: NT-Pro-B-Type Natriuretic Pept 1010 pg/mL
[2024-06-05 13:20] LABS: Prothrombin Time 10.6 sec (10.0-12.5)
--- NOTE | 2024-06-05 13:41 | ED ---
General Adult HPI - General Chief complaint: Upper Respiratory Infection Stated complaint: SOB,Fever Time Seen by Provider: 06/05/24 12:29 Source: patient, EMS Mode of arrival: EMS Limitations: no limitations - History of Present Illness Initial comments: 79-year-old male with past medical history of COPD who wears 2 L of home O2 when needed who presents emergency department reporting weakness and fever. Patient states he was well when he went to bed last night. He awoke this morning and was weak with shortness of breath. Patient was found to have a fever. He does admit to a chronic cough. Denies chest pain. Admits to having a bronc 2 days ago. Patient has had some hemoptysis since the procedure. He denies nausea or vomiting. EMS did provide him with 650 of Tylenol. No other alleviating, precipitating modifying factors - Related Data Home Medications Medication Instructions Recorded Confirmed Aspirin EC [Ecotrin Low Dose] 81 mg PO DAILY 06/15/22 06/05/24 Multivitamins, Thera [Multivitamin 1 tab PO DAILY 06/15/22 06/05/24 (formulary)] [place]-3/Dha/Epa/Fish Oil [Fish Oil 1 cap PO DAILY 06/15/22 06/05/24 1,000 mg Softgel] Pantoprazole [Protonix] 40 mg PO BID 06/15/22 06/05/24 Tamsulosin [Flomax] 0.4 mg PO HS 06/15/22 06/05/24 Tiotropium 2.5 Mcg/Puff [Spiriva 2 puff INHALATION RT-DAILY 06/15/22 06/05/24 Respimat 2.5 Mcg] Torsemide [Demadex] 10 mg PO DAILY 09/22/22 06/05/24 Fluticasone Propion/Salmeterol 1 puff INHALATION RT-BID 06/05/23 06/05/24 [Fluticasone-Salmeterol 100-50] Metoprolol Succinate (ER) [Toprol 25 mg PO DAILY 06/05/23 06/05/24 XL] Albuterol Sulfate [Albuterol 2 puff INHALATION RT-Q6H 05/07/24 06/05/24 Sulfate Hfa] Atorvastatin [Lipitor] 40 mg PO HS 05/07/24 06/05/24 Clopidogrel [Plavix] 75 mg PO DAILY 05/07/24 06/05/24 Montelukast [Singulair] 10 mg PO HS 05/07/24 06/05/24 predniSONE [Deltasone] 10 mg PO DAILY 06/03/24 06/05/24 Previous Rx's Medication Instructions Recorded glipiZIDE 5 mg PO BID #60 tablet 05/14/24 Ciprofloxacin HCl [Cipro] 500 mg PO Q12HR 5 Days #28 tab 06/07/24 predniSONE See Taper PO DIRECTED #30 tab 06/07/24 Allergies Allergy/AdvReac Type Severity Reaction Status Date / Time No Known Allergies Allergy Verified 06/05/24 15:12 Review of Systems ROS Statement: Those systems with pertinent positive or pertinent negative responses have been documented in the HPI. ROS Other: All systems not noted in ROS Statement are negative. Past Medical History Past Medical History: Cancer, Heart Failure, COPD, Hyperlipidemia, Hypertension Additional Past Medical History / Comment(s): Non-hodgkins lymphoma 2021, coronary arteriosclerosis, anemia, pnemonia History of Any Multi-Drug Resistant Organisms: ESBL Date of last positivie culture/infection: 06/19/22 E.coli ESBL MDRO Source:: Bronch Wash Past Surgical History: Back Surgery, Coronary Bypass/CABG Additional Past Surgical History / Comment(s): AAA repair in 03/2022 with stent placed, right carotid endarterectomy, on flomax for not emptying bladder per patient, CABG in 2001 Past Anesthesia/Blood Transfusion Reactions: No Reported Reaction Past Psychological History: No Psychological Hx Reported Smoking Status: Light tobacco smoker Past Alcohol Use History: None Reported Past Drug Use History: None Reported - Past Family History Father Family Medical History: Unable to Obtain Additional Family Medical History / Comment(s): Does not know family history. General Exam Limitations: no limitations General appearance: alert, in no apparent distress Head exam: Present: atraumatic, normocephalic, normal inspection Eye exam: Present: normal appearance, PERRL, EOMI. Absent: scleral icterus, conjunctival injection, periorbital swelling ENT exam: Present: normal exam, mucous membranes moist Neck exam: Present: normal inspection. Absent: tenderness, meningismus, lymphadenopathy Respiratory exam: Present: wheezes, decreased breath sounds. Absent: respiratory distress, rales, rhonchi, stridor Cardiovascular Exam: Present: normal rhythm, tachycardia, normal heart sounds. Absent: systolic murmur, diastolic murmur, rubs, gallop, clicks GI/Abdominal exam: Present: soft, normal bowel sounds. Absent: distended, tenderness, guarding, rebound, rigid Extremities exam: Present: normal inspection, full ROM, normal capillary refill. Absent: tenderness, pedal edema, joint swelling, calf tenderness Back exam: Present: normal inspection Neurological exam: Present: alert, oriented X3, CN II-XII intact Psychiatric exam: Present: normal affect, normal mood Skin exam: Present: warm, dry, intact, normal color. Absent: rash Course Vital Signs 06/05/24 06/05/24 06/05/24 12:28 12:47 13:32 Temperature 101.9 F H 99.8 F H Pulse Rate 101 H 92 Pulse Rate [ Pulse Oximetery ] Respiratory 24 24 20 Rate Blood Pressure 109/69 105/60 Blood Pressure [Left Arm] O2 Sat by Pulse 96 95 Oximetry 06/05/24 06/05/24 15:53 16:28 Temperature 99.0 F 97.7 F Pulse Rate 102 H Pulse Rate [ 96 Pulse Oximetery ] Respiratory 18 22 Rate Blood Pressure 128/56 Blood Pressure 117/58 [Left Arm] O2 Sat by Pulse 97 94 L Oximetry Procedures - [facility] Protocol (Time Out) Nurse: Luba Beckwith Medical Decision Making - Medical Decision Making Was pt. sent in by a medical professional or institution (PABLO Gooden, TALENT ACQUISITION ADMINISTRATOR, urgent care, hospital, or care home...) When possible be specific @ -No Did you speak to anyone other than the patient for history (EMS, parent, family, police, friend...)? What history was obtained from this source @ -Spoke with EMS for history Did you review nursing and triage notes (agree or disagree)? Why? @ -I reviewed and agree with nursing and triage notes Were old charts reviewed (outside hosp., previous admission, EMS record, old EKG, old radiological studies, urgent care reports/EKG's, care home records)? Report findings @ -I reviewed the patient's bronchoscopy report Differential Diagnosis (chest pain, altered mental status, abdominal pain women, abdominal pain men, vaginal bleeding, weakness, fever, dyspnea, syncope, headache, dizziness, GI bleed, back pain, seizure, CVA, palpatations, mental health, musculoskeletal)? @ -Differential Dyspnea: Coronary syndrome, arrhythmia, tamponade, asthma, COPD, pulmonary embolism, pneumonia, pneumothorax, pulmonary effusion, anaphylaxis, diabetic ketoacidosis, flailed chest, pulmonary contusion, diaphragmatic rupture, anemia, neuromuscular, this is not meant to be an all-inclusive list. EKG interpreted by me (3pts min.). @ -yes and demonstrate sinus tachycardia with rate of 100. [place] interval 134. QRS 138. QTc of 412. No acute ST segment elevations or depressions X-rays interpreted by me (1pt min.). @ -Yes and demonstrates no acute process CT interpreted by me (1pt min.). @ -None done U/S interpreted by me (1pt. min.). @ -None done What testing was considered but not performed or refused? (CT, X-rays, U/S, labs)? Why? @ -None What meds were considered but not given or refused? Why? @ -None Did you discuss the management of the patient with other professionals (venancio calderon i.e. , PA, TALENT ACQUISITION ADMINISTRATOR, lab, RT, psych nurse, web content & social media manager, deli department manager, teacher, upscale security officer, leather case finisher)? Give summary @ -Spoke with Dr. Chanel who is the patients director business integration. Spoke with Dr. Ross for admission Was smoking cessation discussed for >3mins.? @ No] Was critical care preformed (if so, how long)? @ No] Were there social determinants of health that impacted care today? How? (Homelessness, low income, unemployed, alcoholism, drug addiction, transportation, low edu. Level, literacy, decrease access to med. care, retirement, rehab)? @ -No Was there de-escalation of care discussed even if they declined (Discuss DNR or withdrawal of care, Hospice)? DNR status @ -No What co-morbidities impacted this encounter? (DM, HTN, Smoking, COPD, CAD, Cancer, CVA, ARF, Chemo, Hep., AIDS, mental health diagnosis, sleep apnea, morbid obesity)? @ -COPD chronically on home O2 Was patient admitted / discharged? Hospital course, mention meds given and route, prescriptions, significant lab abnormalities, going to OR and other pertinent info. @ -Upon arrival patient seen and evaluated in trauma 2. Thorough history and physical exam was performed. IV access was established. Laboratory studies are conducted. Chest x-ray was performed. Patient is COVID-positive. Patient will be admitted. Spoke with Dr. Chanel in regards to remdesivir. Also spoke with Dr. Ross for admission Undiagnosed new problem with uncertain prognosis? @ -No Drug Therapy requiring intensive monitoring for toxicity (Heparin, Nitro, Insulin, Cardizem)? @ -No Were any procedures done? @ -No Diagnosis/symptom? @ -Acute respiratory insufficiency, chronic respiratory failure, acute exacerbation of COPD, COVID infection, NSTEMI Acute, or Chronic, or Acute on Chronic? @ -Acute on chronic Uncomplicated (without systemic symptoms) or Complicated (systemic symptoms)? @Complicated Side effects of treatment? @ -No Exacerbation, Progression, or Severe Exacerbation? @ -Yes Poses a threat to life or bodily function? How? (Chest pain, USA, CA, pneumonia, PE, COPD, DKA, ARF, appy, cholecystitis, CVA, Diverticulitis, Homicidal, Suicidal, threat to staff... and all critical care pts) @ -No - Lab Data Result diagrams: 06/07/24 07:37 06/07/24 07:37 Lab Results 06/05/24 06/05/24 06/05/24 Range/Units 12:39 12:39 12:39 WBC 1.8 L (3.8-10.6) k/uL RBC 3.67 L (4.30-5.90) m/uL Hgb 11.2 L (13.0-17.5) gm/dL Hct 34.0 L (39.0-53.0) % MCV 92.7 (80.0-100.0) fL MCH 30.5 (25.0-35.0) pg MCHC 33.0 (31.0-37.0) g/dL RDW 15.2 (11.5-15.5) % Plt Count 145 L (150-450) k/uL MPV 9.0 Neutrophils % (Manual) 24 % Band Neuts % (Manual) 2 % Lymphocytes % (Manual) 54 % Monocytes % (Manual) 17 % Eosinophils % (Manual) 3 % Neutrophils # TALENT ACQUISITION ADMINISTRATOR Neutrophils # (Manual) 0.40 L* (1.3-7.7) k/uL Lymphocytes # (Manual) 0.97 L (1.0-4.8) k/uL Monocytes # (Manual) 0.31 (0-1.0) k/uL Eosinophils # (Manual) 0.05 (0-0.7) k/uL Nucleated RBCs 0 (0-0) /100 WBC Manual Slide Review Performed PT 10.6 (10.0-12.5) sec INR 1.0 (<1.2) APTT 20.2 L (22.0-30.0) sec D-Dimer (<0.60) mg/L FEU Sodium 136 L (137-145) mmol/L Potassium 3.8 (3.5-5.1) mmol/L Chloride 104 (98-107) mmol/L Carbon Dioxide 27 (22-30) mmol/L Anion Gap 5 mmol/L BUN 23 H (9-20) mg/dL Creatinine 1.40 H (0.66-1.25) mg/dL Est GFR (CKD-EPI)AfAm 54 (>60 ml/min/1.73 sqM) Est GFR (CKD-EPI)NonAf 47 (>60 ml/min/1.73 sqM) Glucose 79 (74-99) mg/dL Lactic Ac Sepsis Rflx Plasma Lactic Acid Selvin (0.7-2.0) mmol/L Calcium 8.4 (8.4-10.2) mg/dL Magnesium 1.3 L (1.6-2.3) mg/dL Total Bilirubin 0.7 (0.2-1.3) mg/dL AST 39 (17-59) U/L ALT 37 (4-49) U/L Alkaline Phosphatase 41 (38-126) U/L Troponin I (0.000-0.034) ng/mL NT-Pro-B Natriuret Pep 1010 pg/mL Total Protein 5.3 L (6.3-8.2) g/dL Albumin 3.2 L (3.5-5.0) g/dL Influenza Type A (PCR) (Not Detectd) Influenza Type B (PCR) (Not Detectd) RSV (PCR) (Not Detectd) SARS-CoV-2 (PCR) (Not Detectd) 06/05/24 06/05/24 06/05/24 Range/Units 12:39 12:39 12:39 WBC (3.8-10.6) k/uL RBC (4.30-5.90) m/uL Hgb (13.0-17.5) gm/dL Hct (39.0-53.0) % MCV (80.0-100.0) fL MCH (25.0-35.0) pg MCHC (31.0-37.0) g/dL RDW (11.5-15.5) % Plt Count (150-450) k/uL MPV Neutrophils % (Manual) % Band Neuts % (Manual) % Lymphocytes % (Manual) % Monocytes % (Manual) % Eosinophils % (Manual) % Neutrophils # Neutrophils # (Manual) (1.3-7.7) k/uL Lymphocytes # (Manual) (1.0-4.8) k/uL Monocytes # (Manual) (0-1.0) k/uL Eosinophils # (Manual) (0-0.7) k/uL Nucleated RBCs (0-0) /100 WBC Manual Slide Review PT (10.0-12.5) sec INR (<1.2) APTT (22.0-30.0) sec D-Dimer 7.31 H (<0.60) mg/L FEU Sodium (137-145) mmol/L Potassium (3.5-5.1) mmol/L Chloride (98-107) mmol/L Carbon Dioxide (22-30) mmol/L Anion Gap mmol/L BUN (9-20) mg/dL Creatinine (0.66-1.25) mg/dL Est GFR (CKD-EPI)AfAm (>60 ml/min/1.73 sqM) Est GFR (CKD-EPI)NonAf (>60 ml/min/1.73 sqM) Glucose (74-99) mg/dL Lactic Ac Sepsis Rflx Plasma Lactic Acid Selvin 2.5 H* (0.7-2.0) mmol/L Calcium (8.4-10.2) mg/dL Magnesium (1.6-2.3) mg/dL Total Bilirubin (0.2-1.3) mg/dL AST (17-59) U/L ALT (4-49) U/L Alkaline Phosphatase (38-126) U/L Troponin I 0.058 H* (0.000-0.034) ng/mL NT-Pro-B Natriuret Pep pg/mL Total Protein (6.3-8.2) g/dL Albumin (3.5-5.0) g/dL Influenza Type A (PCR) (Not Detectd) Influenza Type B (PCR) (Not Detectd) RSV (PCR) (Not Detectd) SARS-CoV-2 (PCR) (Not Detectd) 06/05/24 06/05/24 Range/Units 12:47 13:32 WBC (3.8-10.6) k/uL RBC (4.30-5.90) m/uL Hgb (13.0-17.5) gm/dL Hct (39.0-53.0) % MCV (80.0-100.0) fL MCH (25.0-35.0) pg MCHC (31.0-37.0) g/dL RDW (11.5-15.5) % Plt Count (150-450) k/uL MPV Neutrophils % (Manual) % Band Neuts % (Manual) % Lymphocytes % (Manual) % Monocytes % (Manual) % Eosinophils % (Manual) % Neutrophils # Neutrophils # (Manual) (1.3-7.7) k/uL Lymphocytes # (Manual) (1.0-4.8) k/uL Monocytes # (Manual) (0-1.0) k/uL Eosinophils # (Manual) (0-0.7) k/uL Nucleated RBCs (0-0) /100 WBC Manual Slide Review PT (10.0-12.5) sec INR (<1.2) APTT (22.0-30.0) sec D-Dimer (<0.60) mg/L FEU Sodium (137-145) mmol/L Potassium (3.5-5.1) mmol/L Chloride (98-107) mmol/L Carbon Dioxide (22-30) mmol/L Anion Gap mmol/L BUN (9-20) mg/dL Creatinine (0.66-1.25) mg/dL Est GFR (CKD-EPI)AfAm (>60 ml/min/1.73 sqM) Est GFR (CKD-EPI)NonAf (>60 ml/min/1.73 sqM) Glucose (74-99) mg/dL Lactic Ac Sepsis Rflx Y Plasma Lactic Acid Selvin (0.7-2.0) mmol/L Calcium (8.4-10.2) mg/dL Magnesium (1.6-2.3) mg/dL Total Bilirubin (0.2-1.3) mg/dL AST (17-59) U/L ALT (4-49) U/L Alkaline Phosphatase (38-126) U/L Troponin I (0.000-0.034) ng/mL NT-Pro-B Natriuret Pep pg/mL Total Protein (6.3-8.2) g/dL Albumin (3.5-5.0) g/dL Influenza Type A (PCR) Not Detected (Not Detectd) Influenza Type B (PCR) Not Detected (Not Detectd) RSV (PCR) Not Detected (Not Detectd) SARS-CoV-2 (PCR) Detected A (Not Detectd) Disposition Clinical Impression: Hypomagnesemia, Acute exacerbation of chronic obstructive pulmonary disease, COVID-19 Disposition: ADMITTED IP TO THIS [facility] Condition: Stable Is patient prescribed a controlled substance at d/c from ED?: No Time of Disposition: 15:42 Decision to Admit Reason: Admit from EC Decision Date: 06/05/24 Decision Time: 15:42
[2024-06-05 13:57] LABS: Partial Thromboplastin Time 20.2 sec (22.0-30.0)
[2024-06-05 14:41] LABS: HGB 11.2 gm/dL (13.0-17.5); MCH 30.5 pg (25.0-35.0); MCV 92.7 fL (80.0-100.0); Platelet Count 145 k/uL (150-450); RBC 3.67 m/uL (4.30-5.90); RDW 15.2 % (11.5-15.5); WBC 1.8 k/uL (3.8-10.6)
[2024-06-05 15:19] LABS: Neutrophils % (M) 24 %
[2024-06-05 15:20] LABS: Band Neutrophils % 2 %; Eosinophils # (M) 0.05 k/uL (0-0.7); Lymphocytes # (M) 0.97 k/uL (1.0-4.8); Monocytes # (M) 0.31 k/uL (0-1.0)
[2024-06-05 15:23] LABS: Nucleated Red Blood Cells 0 /100 WBC (0-0); Total Cells Counted 100
[2024-06-05] MEDS ORDERED: NALOXONE 0.4 MG/ML 1 ML VIAL IV PRN (15:42)
[2024-06-05] MEDS ORDERED: ALBUTEROL NEBULIZED 2.5 MG/3 ML INHALATION PRN (15:46)
[2024-06-05] MEDS: methylPREDNISolone SOD SUCCI 125 MG/2 ML VIAL IV STA (16:04)
[2024-06-05] MEDS: ASPIRIN 81 MG PO STA (16:04)
[2024-06-05 16:38] LABS: C Reactive Protein 6.2 mg/dL (<1.0)
--- NOTE | 2024-06-05 16:58 | P.CNPUL ---
History of Present Illness Consult date: 06/05/24 Reason for consult: dyspnea History of present illness: This is a 79-year-old male patient who is coming in with ongoing fever, generalized weakness, cough and congestion and a worsening shortness of breath that developed over the past 24 to 48 hours. He is very well-known to me. I treated him few weeks back in the hospital for a pseudomonal tracheobronchitis/pneumonia. At that time, the patient received inpatient bronchoscopy followed by outpatient antibiotics with ciprofloxacin. Improved. He was seen in follow-up in the office and I performed another bronchoscopy on him 48 hours ago to reevaluate the presence of ongoing pseudomonal infection. The patient underwent the bronchoscopy without any major complications. He was discharged home. The final cultures and sensitivities are still pending. Meanwhile, his condition gets worse and he gets admitted to the hospital because of a COVID-19 infection. At this point in time, the patient is on 3 L of oxygen via nasal cannula with a pulse ox of 95%. The white cell count is 1.8 with a hemoglobin of 1.2 and a platelet count of 145. His INR and PT are within normal limits. PTT is at 20. Lactic acid 2.5. BUN is 24 with a creatinine of 1.4 and sodium levels at 136. The patient is known to have severe COPD. The patient has metabolic combination of Wixela and Spiriva an outpatient basis. His previous pulmonary function test from 2020 has shown as an FEV1 of 39% of predicted at baseline. He is also oxygen dependent and utilizes oxygen on and off as requirement of oxygen becomes more needed whenever he gets an acute exacerbation. He has class III/IV chronic exertional dyspnea. He is also being monitored for a right upper lobe pulmonary nodule which is measuring 1.1 cm in size there was noted to be PET avid. Based on his advanced COPD and limited performance status, we decided to monitor and continue surveillance of this pulmonary nodule and decide at the later stage if SBRT would be of any benefit for this patient. He is also known to have coronary artery disease, has undergone previous coronary bypass surgery. He has also undergone previous stenting to SVG to RCA. Other comorbidities include hypertension, hyperlipidemia, previous history of non-Hodgkin's lymphoma treated with rituximab and the patient has carotid artery disease, abdominal aortic aneurysm with previous endovascular stent grafting and the patient has a aorto by iliac endovascular graft along with previous history of a upper GI bleed related to a duodenal ulcer which resulted into significant blood loss anemia. Most recently, the patient was hospitalized for a pseudomonal t racheobronchitis/pneumonia treated with a 3-week course of IV antibiotics with ciprofloxacin. Review of Systems Constitutional: Reports fatigue, Reports fever, Reports lethargy Eyes: denies as per HPI, denies blurred vision, denies bulging eye, denies decreased vision, denies diplopia, denies discharge, denies dry eye, denies irri tation, denies itching, denies pain, denies photophobia, denies loss of peripheral vision, denies loss of vision, denies tunnel vision/blind spots Ears: deny: decreased hearing, ear discharge, earache, tinnitus Ears, nose, mouth and throat: Reports as per HPI Breasts: absent: as per HPI, gynecomastia Cardiovascular: Reports as per HPI, Reports decreased exercise tolerance, Reports dyspnea on exertion Respiratory: Reports cough, Reports dyspnea, Reports home oxygen, Reports respiratory infections, Reports wheezing Gastrointestinal: Reports as per HPI Genitourinary: Reports as per HPI Musculoskeletal: Reports as per HPI Musculoskeletal: absent: ankle pain, ankle stiffness, ankle swelling, as per HPI, elbow pain, elbow stiffness, elbow swelling, foot pain, foot stiffness, foot swelling, hand pain, hand stiffness, hand swelling, hip pain, hip stiffness, hip swelling, knee pain, knee stiffness, knee swelling, shoulder pain, shoulder stiffness, shoulder swelling, wrist pain, wrist stiffness, wrist swelling Integumentary: Reports as per HPI Neurological: Reports as per HPI Psychiatric: Reports as per HPI Endocrine: Reports as per HPI Hematologic/Lymphatic: Reports as per HPI Allergic/Immunologic: Reports as per HPI Past Medical History Past Medical History: Cancer, Heart Failure, COPD, Hyperlipidemia, Hypertension Additional Past Medical History / Comment(s): Non-hodgkins lymphoma 2021, coronary arteriosclerosis, anemia, pnemonia History of Any Multi-Drug Resistant Organisms: ESBL Date of last positivie culture/infection: 06/19/22 E.coli ESBL MDRO Source:: Bronch Wash Past Surgical History: Back Surgery, Coronary Bypass/CABG Additional Past Surgical History / Comment(s): AAA repair in 03/2022 with stent placed, right carotid endarterectomy, on flomax for not emptying bladder per patient, CABG in 2001 Past Anesthesia/Blood Transfusion Reactions: No Reported Reaction Past Psychological History: No Psychological Hx Reported Smoking Status: Light tobacco smoker Past Alcohol Use History: None Reported Past Drug Use History: None Reported - Past Family History Father Family Medical History: Unable to Obtain Additional Family Medical History / Comment(s): Does not know family history. Medications and Allergies Home Medications Medication Instructions Recorded Confirmed Type Aspirin EC [Ecotrin Low Dose] 81 mg PO DAILY 06/15/22 06/05/24 History Multivitamins, Thera [Multivitamin 1 tab PO DAILY 06/15/22 06/05/24 History (formulary)] [place]-3/Dha/Epa/Fish Oil [Fish Oil 1 cap PO DAILY 06/15/22 06/05/24 History 1,000 mg Softgel] Pantoprazole [Protonix] 40 mg PO BID 06/15/22 06/05/24 History Tamsulosin [Flomax] 0.4 mg PO HS 06/15/22 06/05/24 History Tiotropium 2.5 Mcg/Puff [Spiriva 2 puff INHALATION RT-DAILY 06/15/22 06/05/24 History Respimat 2.5 Mcg] Torsemide [Demadex] 10 mg PO DAILY 09/22/22 06/05/24 History Fluticasone Propion/Salmeterol 1 puff INHALATION RT-BID 06/05/23 06/05/24 History [Fluticasone-Salmeterol 100-50] Metoprolol Succinate (ER) [Toprol 25 mg PO DAILY 06/05/23 06/05/24 History XL] Albuterol Sulfate [Albuterol 2 puff INHALATION RT-Q6H 05/07/24 06/05/24 History Sulfate Hfa] Atorvastatin [Lipitor] 40 mg PO HS 05/07/24 06/05/24 History Clopidogrel [Plavix] 75 mg PO DAILY 05/07/24 06/05/24 History Montelukast [Singulair] 10 mg PO HS 05/07/24 06/05/24 History Ciprofloxacin HCl [Cipro] 500 mg PO Q12HR 14 Days #28 tab 05/14/24 06/05/24 Rx glipiZIDE 5 mg PO BID #60 tablet 05/14/24 06/05/24 Rx predniSONE [Deltasone] 10 mg PO DAILY 06/03/24 06/05/24 History Allergies Allergy/AdvReac Type Severity Reaction Status Date / Time No Known Allergies Allergy Verified 06/05/24 15:12 Physical Exam Vitals: Vital Signs Temp Pulse Resp BP Pulse Ox 06/05/24 13:32 99.8 F H 92 20 105/60 95 06/05/24 12:47 24 06/05/24 12:28 101.9 F H 101 H 24 109/69 96 Intake and Output 06/05/24 06/05/24 06/05/24 06:59 14:59 22:59 Other: Weight 68.039 kg - Constitutional General appearance: cooperative, mild distress - EENT Eyes: EOMI Ears: negative: bulging, bullous, dull, erythema, fluid, myringotomy tube, obstructed by cerumen, scarring, unable to vistualize, other - Neck Neck: no lymphadenopathy Carotids: negative: upstroke normal, upstroke delayed, upstroke diminished, upstroke bounding, bruit absent, bruit present Thyroid: negative: normal size, enlarged, firm, nodule - Respiratory Respiratory: bilateral: diminished, rales, wheezing, prolonged expiration - Cardiovascular Rhythm: regular Heart sounds: abnormal: S1, S2 - Gastrointestinal General gastrointestinal: no organomegaly, soft, no tenderness - Integumentary Integumentary: normal - Neurologic Neurologic: CNII-XII intact - Musculoskeletal Musculoskeletal: gait normal - Psychiatric Psychiatric: A&O x's 3 Results - Laboratory Findings CBC and BMP: 06/05/24 12:39 06/05/24 12:39 PT/INR, D-dimer PT 10.6 sec (10.0-12.5) 06/05/24 12:39 INR 1.0 (<1.2) 06/05/24 12:39 Abnormal lab findings: Abnormal Labs 06/05/24 06/05/24 06/05/24 12:39 12:39 12:39 WBC 1.8 L RBC 3.67 L Hgb 11.2 L Hct 34.0 L Plt Count 145 L Neutrophils # (Manual) 0.40 L* Lymphocytes # (Manual) 0.97 L APTT 20.2 L Sodium 136 L BUN 23 H Creatinine 1.40 H Plasma Lactic Acid Selvin Magnesium 1.3 L Troponin I Total Protein 5.3 L Albumin 3.2 L SARS-CoV-2 (PCR) 06/05/24 06/05/24 06/05/24 12:39 12:39 12:47 WBC RBC Hgb Hct Plt Count Neutrophils # (Manual) Lymphocytes # (Manual) APTT Sodium BUN Creatinine Plasma Lactic Acid Selvin 2.5 H* Magnesium Troponin I 0.058 H* Total Protein Albumin SARS-CoV-2 (PCR) Detected A - Diagnostic Findings Chest x-ray: image reviewed Assessment and Plan Plan: Acute COVID-19 infection, symptoms are of a new onset started approximate 24 to 48 hours ago. His is infected with the virus. No other significant extrapulmonary manifestations related to COVID-19 infection. The patient has been vaccinated in the past. No previous COVID-19 infections. Acute on chronic hypoxic respiratory failure secondary to above, currently on 3 L of oxygen by nasal cannula Acuity of exacerbation secondary to above Recent hospitalization for a pseudomonal tracheobronchitis/pneumonia status post repeat bronchoscopy that was done on 06/03/2024 the patient is still on oral ciprofloxacin Oxygen dependent chronic obstructive pulmonary disease with an FEV1 value 39% of predicted Chronic tobacco dependence of greater than 60 years Right upper lobe PET avid pulmonary nodule which is being monitored on outpatient basis History of non-Hodgkin's lymphoma Chronic stage III kidney disease Coronary disease with previous coronary artery bypass surgery in 2001 History of abdominal aortic aneurysm status post stent placement in March 2022 Carotid stenosis status post endarterectomy History of ESBL E. coli and bronchial wash in 2021 Hyperlipidemia Hypertension Plan: Continue supportive treatment. Continue supplementing the patient with oxygen currently on 3 Suboxone by nasal cannula. Restart Advair and Spiriva here in the hospital and use albuterol HFA 4 times a day IV Solu-Medrol 40 mg every 8 hours May consider remdesivir if there is no significant improvement in his condition over the next 24 hours. Check LDH CRP and procalcitonin level. Check D-dimers Resume home medications Continue ciprofloxacin 500 mg p.o. twice a day, treatment for his previous pseudomonal infection/tracheobronchitis/pneumonia Will continue to follow.
[2024-06-05] MEDS ORDERED: DEXTROSE 50% SYRINGE 50 ML IVP PRN ×2 (17:36)
--- NOTE | 2024-06-05 17:41 | P.HPIM ---
History of Present Illness H&P Date: 06/05/24 79 year old M with PMH of systolic CHF with EF 40 to 45%, COPD on 2L home O2, chronic kidney disease, hypertension, hyperlipidemia, non-Hodgkins lymphoma, CAD with CABG, AAA with stent, carotid stenosis with endarterectomy presents to the ED for shortness of breath. He recently underwent bronchoscopy with BAL with Dr. Cano on 05/13 with cultures resulting in Pseudomonas and ariel albicans. He was discharged on Ciprofloxacin at that time. He underwent repeat bronchoscopy with BAL with Dr. Cano on 06/03. He felt well when he went home. Over the last 1-2 days he reports fever and increased shortness of breath. He was exposed to COVID. This prompted him to come back to the ED. In the ED he underwent extensive evaluation. Tmax 101.9F, BP 109/69, HR 101, RR 24, 96% on 3L. CBC, Coag panel, CMP significant for WBC 1.8, RBC 3.67, Hg 11.2, Hct 34, Plt 145, APTT 20.2, Na 136, BUN 23, Cr 1.4, alb 3.2. Lactic acid 2.5. Mag 1.3. Troponin 0.058, 0.095. LDH 325. CRP 6.2. COVID 19+. EKG sinus tachycardia with RBBB. CXR showed COPD with stable basilar atelectasis or scarring favored over PNA. P atient is admitted for further workup and management. General: non toxic, no distress, appears at stated age Derm: warm, dry Head: atraumatic, normocephalic, symmetric Eyes: EOMI, no lid lag, anicteric sclera Mouth: no lip lesion, mucus membranes moist Cardiovascular: S1S2 tachy, no murmur Lungs: Expiratory wheezing bilaterally, no rhonchi, no rales , no accessory muscle use Ext: no gross muscle atrophy, no edema, no contractures Neuro: no focal neuro deficits Psych: Alert, oriented, appropriate affect Based on my assessment of this patient, this patient meets a high complexity level of care. Active conditions: Neutropenic sepsis: ANC 468. Likely related to COVID 19 infection. Immunoco mpromised given chronic steroid use. Recent BAL culture with Pseudomonas. Start Zosyn 3.75g IV TID. Obtain BCx, Sputum Cx, Legionella Ag, Pro-judi. Telemetry monitoring. Maintain MAP > 65. Judicious use of fluids given h/o CHF. Pulmonary on board. COVID 19 PNA: SoluMedrol 40 mg IV TID. Consider Remdesivir if clinical condition worsens. Acute on chronic COPD exacerbation: Symbicort 2 INH BID. Albuterol INH QID PRN. Singulair 10 mg PO QD. Spiriva 2 INH QD. Elevated Troponin: Likely demand ischemia. No chest pain. Trend Trop/EKG to rule out ACS. ASA 81 mg PO QD. Lipitor 40 mg PO QHS. Plavix 75 mg PO QD. Metoprolol 25 mg PO QD. Pancytopenia likely related to ongoing infection HypoMag: Mag sulfate 2g IV ordered today. Repeat tomorrow. Diabetes mellitus: A1c 7.3. ISS. Accuchecks ACHS. Hypoglycemic precautions. Lactic acidosis: Related to sepsis. Trend until negative. Elevated D-Dimer: Likely related to COVID. Chronic conditions: Chronic kidney disease at baseline. Systolic CHF with EF 40-45%: Appears euvolemic. Hypertension: Metoprolol as above. Dyslipidemia: Lipitor as above. non-Hodgkins lymphoma CAD with CABG: ASA, Lipitor, Plavix, Metoprolol as above. AAA with stent: ASA, Lipitor, Plavix, Metoprolol as above. Carotid stenosis with endarterectomy: ASA, Lipitor, Plavix, as above. CODE STATUS: FULL CODE DVT Prophylaxis: Lovenox GI Prophylaxis: Protonix Designated medical POA if patient is not able to make medical decisions for themselves: I have reviewed the following microsoft [employer] consultant notes: ER, Pulmonary I have reviewed the results of the following tests: As above I have ordered the following tests: As above I have discussed the care of this patient with the following independent historian: I have independently interpreted the following test below: EKG, CXR. I have discussed the management of this patient with the following physician: ER provider. Past Medical History Past Medical History: Cancer, Heart Failure, COPD, Hyperlipidemia, Hypertension Additional Past Medical History / Comment(s): Non-hodgkins lymphoma 2021, coronary arteriosclerosis, anemia, pnemonia History of Any Multi-Drug Resistant Organisms: ESBL Date of last positivie culture/infection: 06/19/22 E.coli ESBL MDRO Source:: Bronch Wash Past Surgical History: Back Surgery, Coronary Bypass/CABG Additional Past Surgical History / Comment(s): AAA repair in 03/2022 with stent placed, right carotid endarterectomy, on flomax for not emptying bladder per patient, CABG in 2001 Past Anesthesia/Blood Transfusion Reactions: No Reported Reaction Past Psychological History: No Psychological Hx Reported Smoking Status: Light tobacco smoker Past Alcohol Use History: None Reported Past Drug Use History: None Reported - Past Family History Father Family Medical History: Unable to Obtain Additional Family Medical History / Comment(s): Does not know family history. Medications and Allergies Home Medications Medication Instructions Recorded Confirmed Type Aspirin EC [Ecotrin Low Dose] 81 mg PO DAILY 06/15/22 06/05/24 History Multivitamins, Thera [Multivitamin 1 tab PO DAILY 06/15/22 06/05/24 History (formulary)] [place]-3/Dha/Epa/Fish Oil [Fish Oil 1 cap PO DAILY 06/15/22 06/05/24 History 1,000 mg Softgel] Pantoprazole [Protonix] 40 mg PO BID 06/15/22 06/05/24 History Tamsulosin [Flomax] 0.4 mg PO HS 06/15/22 06/05/24 History Tiotropium 2.5 Mcg/Puff [Spiriva 2 puff INHALATION RT-DAILY 06/15/22 06/05/24 History Respimat 2.5 Mcg] Torsemide [Demadex] 10 mg PO DAILY 09/22/22 06/05/24 History Fluticasone Propion/Salmeterol 1 puff INHALATION RT-BID 06/05/23 06/05/24 History [Fluticasone-Salmeterol 100-50] Metoprolol Succinate (ER) [Toprol 25 mg PO DAILY 06/05/23 06/05/24 History XL] Albuterol Sulfate [Albuterol 2 puff INHALATION RT-Q6H 05/07/24 06/05/24 History Sulfate Hfa] Atorvastatin [Lipitor] 40 mg PO HS 05/07/24 06/05/24 History Clopidogrel [Plavix] 75 mg PO DAILY 05/07/24 06/05/24 History Montelukast [Singulair] 10 mg PO HS 05/07/24 06/05/24 History Ciprofloxacin HCl [Cipro] 500 mg PO Q12HR 14 Days #28 tab 05/14/24 06/05/24 Rx glipiZIDE 5 mg PO BID #60 tablet 05/14/24 06/05/24 Rx predniSONE [Deltasone] 10 mg PO DAILY 06/03/24 06/05/24 History Allergies Allergy/AdvReac Type Severity Reaction Status Date / Time No Known Allergies Allergy Verified 06/05/24 15:12 Physical Exam Vitals: Vital Signs Temp Pulse Resp BP Pulse Ox 06/05/24 16:28 97.7 F 102 H 22 128/56 94 L 06/05/24 13:32 99.8 F H 92 20 105/60 95 06/05/24 12:47 24 06/05/24 12:28 101.9 F H 101 H 24 109/69 96 Intake and Output 06/05/24 06/05/24 06/05/24 06:59 14:59 22:59 Output Total 150 Balance -150 Output: Urine 150 Other: Weight 68.039 kg Results CBC & Chem 7: 06/05/24 12:39 06/05/24 12:39 Labs: Abnormal Lab Results - Last 24 Hours (Table) 06/05/24 06/05/24 06/05/24 Range/Units 12:39 12:39 12:39 WBC 1.8 L (3.8-10.6) k/uL RBC 3.67 L (4.30-5.90) m/uL Hgb 11.2 L (13.0-17.5) gm/dL Hct 34.0 L (39.0-53.0) % Plt Count 145 L (150-450) k/uL Neutrophils # (Manual) 0.40 L* (1.3-7.7) k/uL Lymphocytes # (Manual) 0.97 L (1.0-4.8) k/uL APTT 20.2 L (22.0-30.0) sec D-Dimer (<0.60) mg/L FEU Sodium 136 L (137-145) mmol/L BUN 23 H (9-20) mg/dL Creatinine 1.40 H (0.66-1.25) mg/dL Plasma Lactic Acid Selvin (0.7-2.0) mmol/L Magnesium 1.3 L (1.6-2.3) mg/dL Lactate Dehydrogenase (120-246) U/L Troponin I (0.000-0.034) ng/mL C-Reactive Protein (<1.0) mg/dL Total Protein 5.3 L (6.3-8.2) g/dL Albumin 3.2 L (3.5-5.0) g/dL SARS-CoV-2 (PCR) (Not Detectd) 06/05/24 06/05/24 06/05/24 Range/Units 12:39 12:39 12:39 WBC (3.8-10.6) k/uL RBC (4.30-5.90) m/uL Hgb (13.0-17.5) gm/dL Hct (39.0-53.0) % Plt Count (150-450) k/uL Neutrophils # (Manual) (1.3-7.7) k/uL Lymphocytes # (Manual) (1.0-4.8) k/uL APTT (22.0-30.0) sec D-Dimer 7.31 H (<0.60) mg/L FEU Sodium (137-145) mmol/L BUN (9-20) mg/dL Creatinine (0.66-1.25) mg/dL Plasma Lactic Acid Selvin 2.5 H* (0.7-2.0) mmol/L Magnesium (1.6-2.3) mg/dL Lactate Dehydrogenase (120-246) U/L Troponin I 0.058 H* (0.000-0.034) ng/mL C-Reactive Protein (<1.0) mg/dL Total Protein (6.3-8.2) g/dL Albumin (3.5-5.0) g/dL SARS-CoV-2 (PCR) (Not Detectd) 06/05/24 06/05/24 06/05/24 Range/Units 12:47 16:09 16:15 WBC (3.8-10.6) k/uL RBC (4.30-5.90) m/uL Hgb (13.0-17.5) gm/dL Hct (39.0-53.0) % Plt Count (150-450) k/uL Neutrophils # (Manual) (1.3-7.7) k/uL Lymphocytes # (Manual) (1.0-4.8) k/uL APTT (22.0-30.0) sec D-Dimer (<0.60) mg/L FEU Sodium (137-145) mmol/L BUN (9-20) mg/dL Creatinine (0.66-1.25) mg/dL Plasma Lactic Acid Selvin (0.7-2.0) mmol/L Magnesium (1.6-2.3) mg/dL Lactate Dehydrogenase 325 H (120-246) U/L Troponin I 0.095 H* (0.000-0.034) ng/mL C-Reactive Protein 6.2 H (<1.0) mg/dL Total Protein (6.3-8.2) g/dL Albumin (3.5-5.0) g/dL SARS-CoV-2 (PCR) Detected A (Not Detectd)
[2024-06-05] MEDS: PIPERACILLIN-TAZOBACTAM 3.375 GM in SODIUM CHLORIDE 0.9% 100 ML IVPB SCH (18:31)
[2024-06-05] MEDS: PANTOPRAZOLE 40 MG TABLET PO SCH (18:31)
[2024-06-05] MEDS: ACETAMINOPHEN TAB 325 MG TAB PO PRN (18:32)
[2024-06-05] MEDS: MAGNESIUM SULFATE-D5W PMX 1 GM in DEXTROSE/WATER 1 100ML.BAG IVPB SCH (18:32)
[2024-06-05] MEDS: ENOXAPARIN 30 MG/0.3 ML SYRINGE SQ SCH (18:32)
[2024-06-05] MEDS ORDERED: CIPROFLOXACIN HCL 500 MG TAB PO SCH (21:00)
[2024-06-05] MEDS ORDERED: glipiZIDE 5 MG TAB PO SCH (21:00)
[2024-06-05] MEDS: SYMBICORT 80-4.5 MCG INHALER INHALATION SCH (21:18)
[2024-06-05 21:30] VITALS: RESP 18
[2024-06-05] MEDS: MONTELUKAST 10 MG TAB PO SCH (21:44)
[2024-06-05] MEDS: TAMSULOSIN 0.4 MG CAP.ER.24H PO SCH (21:44)
[2024-06-05] MEDS: INSULIN ASPART (NovoLOG) 100 UNIT/ML VIAL SQ SCH (21:44)
[2024-06-05] MEDS: ATORVASTATIN 40 MG TAB PO SCH (21:44)
[2024-06-06 08:30] LABS: HCT 33.3 % (39.0-53.0); HGB 11.2 gm/dL (13.0-17.5); MCH 31.2 pg (25.0-35.0); MCHC 33.6 g/dL (31.0-37.0); MCV 92.8 fL (80.0-100.0); Platelet Count 125 k/uL (150-450); RBC 3.59 m/uL (4.30-5.90); WBC 1.7 k/uL (3.8-10.6)
[2024-06-06 08:41] LABS: African American GFR (CKD) 54 (>60 ml/min/1.73 sqM); Anion Gap 9 mmol/L; Blood Urea Nitrogen 27 mg/dL (9-20); Calcium 8.2 mg/dL (8.4-10.2); Carbon Dioxide 24 mmol/L (22-30); Chloride 101 mmol/L (98-107); Glucose 189 mg/dL (74-99); Non-African American GFR(CKD) 47 (>60 ml/min/1.73 sqM); Potassium 4.2 mmol/L (3.5-5.1); Sodium 134 mmol/L (137-145)
[2024-06-06] MEDS: ALBUTEROL HFA INHALER INHALATION PRN (08:53)
[2024-06-06] MEDS: TORSEMIDE 20 MG TAB PO SCH (08:56)
[2024-06-06] MEDS: methylPREDNISolone SOD SUCCI 40 MG/ML 1 ML VIAL IV SCH (08:56)
[2024-06-06] MEDS: CLOPIDOGREL 75 MG TAB PO SCH (08:56)
[2024-06-06] MEDS: ASPIRIN 81 MG PO SCH (08:56)
[2024-06-06] MEDS: ENOXAPARIN 40 MG/0.4 ML SYRINGE SQ SCH (08:56)
[2024-06-06] MEDS: METOPROLOL SUCCINATE (ER) 25 MG TAB.ER.24H PO SCH (08:56)
[2024-06-06] MEDS: TIOTROPIUM 2.5 MCG INHALER INHALATION SCH (08:57)
--- NOTE | 2024-06-06 09:19 | P.CRDCN ---
History of Present Illness History of present illness: HISTORY OF PRESENT ILLNESS: This is a 79-year-old male with a past medical history significant for COPD, ongoing nicotine dependence, chronic kidney disease, AAA repair, coronary artery disease with previous CABG and subsequent stenting. Patient follows in the office with Dr. Corbett. We have been asked to see the patient in consultation for abnormal troponins. Patient examined at the bedside. Patient states he came to the hospital to chief complaint of shortness of breath, cough, and fever and chills. He states that his was diagnosed with COVID last week. He reports he tested at home but he tested negative. He states that the morning he came to the hospital he tried to get out of bed and was so weak that he fell and was unable to get up. He was found to be positive for COVID. At the time of examination, he denies any shortness of breath. It is noted that the patient was hospitalized recently for pseudomonal tracheobronchitis and pneumonia. The patient did undergo bronchoscopy at that time. The patient also underwent repeat bronchoscopy and BAL by Dr. Cano and on June 03, 2024. He remains on IV antibiotics. The patient denies any chest pain or pressure at the time of examination. He also denies any chest pain or pressure prior to coming into the hospital. He does report history of coronary artery disease. He states that he underwent a three-vessel CABG in 2001. He reports having subsequent stenting in 2021 and also in October of this year at [facility]. He is unsure of which vessel was stented at that time. He reports that he continues to smoke on occasion. He also has home O2 that he uses as needed. Patient denies having a recent echocardiogram or stress echo with his primary liability claims adjuster. DIAGNOSTICS: - EKG reveals sinus mechanism with right bundle branch block. No signs of acute ischemia. - Chest xray COPD with stable basilar atelectasis or scarring favored over pneumonia. - Laboratory data: WBC 1.7. Hemoglobin 11.2. Platelet count 125. Sodium 134. Potassium 4.2. BUN 27. Creatinine 1.40. Troponin 0.058. 0.095. 0.098. - Current home cardiac medications include aspirin 81 mg daily, Lipitor 40 mg at night, Plavix 75 mg daily, metoprolol succinate 25 mg daily, Demadex 10 mg daily - Most recent echocardiogram obtained in September 2022 revealing ejection fraction 40 to 45%, mild pulmonary hypertension, mild to moderate mitral regurgitation, anterior septal hypokinesis extending into the apex, moderate aortic stenosis with peak gradient of 33.4 mmHg and mean gradient of 19 mmHg. No aortic regurgitation, mild tricuspid regurgitation REVIEW OF SYSTEMS: At the time of my exam: CONSTITUTIONAL: Denies fever or chills. HEENT: Denies blurred vision, vision changes, or eye pain. Denies hemoptysis CARDIOVASCULAR: Denies chest pain. Denies orthopnea. Denies PND. Denies palpitations RESPIRATORY: Denies shortness of breath. GASTROINTESTINAL: Denies abdominal pain. Denies nausea or vomiting. HEMATOLOGIC: Denies bleeding disorders. GENITOURINARY: Denies any blood in urine. SKIN: Denies pruitis. Denies rash. PHYSICAL EXAM: VITAL SIGNS: Reviewed. GENERAL: Well-developed in no acute distress. HEENT: Head is normocephalic. Pupils are equal, round. Sclerae anicteric. Mucous membranes of the mouth are moist. Neck supple. No JVD or thyromegaly LUNGS: Respirations even and unlabored. Lungs diminished bilaterally with a few scattered crackles HEART: Regular rate and rhythm. S1 and S2 heard. Systolic murmur noted. ABDOMEN: Soft. Nondistended. Nontender. EXTREMITIES: Normal range of motion. No clubbing or cyanosis. Peripheral pulses intact. No lower extremity edema NEUROLOGIC: Awake and alert. Oriented x 3. ASSESSMENT: Shortness of breath Acute COVID-19 Recent hospitalization secondary to pseudomonal tracheobronchitis and pneumonia, status post bronchoscopy x 2 Elevated troponin, likely type II SC secondary to oxygen supply/demand mismatch Coronary artery disease with previous three-vessel CABG in 2001 and subsequent stenting, most recently in October 2023 at [facility] Ischemic cardiomyopathy, 4045% Chronic kidney disease COPD Chronic hypoxic respiratory failure, on home oxygen PRN History of AAA with previous stent graft History of carotid stenosis History of non-Hodgkin's lymphoma Hypertension Hyperlipidemia Ongoing nicotine dependence PLAN: An acute coronary event has been ruled out Obtain 2D echo to assess cardiac structure and function Continue current cardiac medications Obtain records from patient's primary liability claims adjuster Further recommendations pending patient course Nurse practitioner note has been reviewed by physician. Signing provider agrees with the documented findings, assessment, and plan of care documented by PRODUCTION FLOATER as a scribe. Past Medical History Past Medical History: Cancer, Heart Failure, COPD, Hyperlipidemia, Hypertension Additional Past Medical History / Comment(s): Non-hodgkins lymphoma 2021, coronary arteriosclerosis, anemia, pnemonia History of Any Multi-Drug Resistant Organisms: ESBL Date of last positivie culture/infection: 06/19/22 E.coli ESBL MDRO Source:: Bronch Wash Past Surgical History: Back Surgery, Coronary Bypass/CABG Additional Past Surgical History / Comment(s): AAA repair in 03/2022 with stent placed, right carotid endarterectomy, on flomax for not emptying bladder per patient, CABG in 2001 Past Anesthesia/Blood Transfusion Reactions: No Reported Reaction Past Psychological History: No Psychological Hx Reported Smoking Status: Light tobacco smoker Past Alcohol Use History: None Reported Past Drug Use History: None Reported - Past Family History Father Family Medical History: Unable to Obtain Additional Family Medical History / Comment(s): Does not know family history. Medications and Allergies Home Medications Medication Instructions Recorded Confirmed Type Aspirin EC [Ecotrin Low Dose] 81 mg PO DAILY 06/15/22 06/05/24 History Multivitamins, Thera [Multivitamin 1 tab PO DAILY 06/15/22 06/05/24 History (formulary)] [place]-3/Dha/Epa/Fish Oil [Fish Oil 1 cap PO DAILY 06/15/22 06/05/24 History 1,000 mg Softgel] Pantoprazole [Protonix] 40 mg PO BID 06/15/22 06/05/24 History Tamsulosin [Flomax] 0.4 mg PO HS 06/15/22 06/05/24 History Tiotropium 2.5 Mcg/Puff [Spiriva 2 puff INHALATION RT-DAILY 06/15/22 06/05/24 History Respimat 2.5 Mcg] Torsemide [Demadex] 10 mg PO DAILY 09/22/22 06/05/24 History Fluticasone Propion/Salmeterol 1 puff INHALATION RT-BID 06/05/23 06/05/24 History [Fluticasone-Salmeterol 100-50] Metoprolol Succinate (ER) [Toprol 25 mg PO DAILY 06/05/23 06/05/24 History XL] Albuterol Sulfate [Albuterol 2 puff INHALATION RT-Q6H 05/07/24 06/05/24 History Sulfate Hfa] Atorvastatin [Lipitor] 40 mg PO HS 05/07/24 06/05/24 History Clopidogrel [Plavix] 75 mg PO DAILY 05/07/24 06/05/24 History Montelukast [Singulair] 10 mg PO HS 05/07/24 06/05/24 History Ciprofloxacin HCl [Cipro] 500 mg PO Q12HR 14 Days #28 tab 05/14/24 06/05/24 Rx glipiZIDE 5 mg PO BID #60 tablet 05/14/24 06/05/24 Rx predniSONE [Deltasone] 10 mg PO DAILY 06/03/24 06/05/24 History Allergies Allergy/AdvReac Type Severity Reaction Status Date / Time No Known Allergies Allergy Verified 06/05/24 15:12 Physical Exam Vitals: Vital Signs Temp Pulse Pulse Resp BP BP Pulse Ox 06/06/24 03:28 97.6 F 80 18 95/53 99 06/06/24 01:05 83 18 06/05/24 23:41 98.7 F 83 18 107/55 97 06/05/24 20:00 98.8 F 83 18 97/52 97 06/05/24 16:28 97.7 F 102 H 22 128/56 94 L 06/05/24 15:53 99.0 F 96 18 117/58 97 06/05/24 13:32 99.8 F H 92 20 105/60 95 06/05/24 12:47 24 06/05/24 12:28 101.9 F H 101 H 24 109/69 96 Intake and Output 06/05/24 06/06/24 06/06/24 22:59 06:59 14:59 Intake Total 120 Output Total 150 300 Balance -30 -300 Intake: Oral 120 Output: Urine 150 300 Other: Voiding Method Urinal Urinal Weight 68.039 kg 74 kg Results 06/05/24 12:39 06/06/24 07:18 Cardiac Enzymes 06/05/24 06/05/24 06/05/24 Range/Units 12:39 12:39 16:09 AST 39 (17-59) U/L Lactate Dehydrogenase (120-246) U/L Troponin I 0.058 H* 0.095 H* (0.000-0.034) ng/mL 09/27/24 09/27/24 Range/Units 16:15 18:33 AST (17-59) U/L Lactate Dehydrogenase 325 H (120-246) U/L Troponin I 0.098 H* (0.000-0.034) ng/mL Coagulation 06/05/24 Range/Units 12:39 PT 10.6 (10.0-12.5) sec APTT 20.2 L (22.0-30.0) sec CBC 06/05/24 Range/Units 12:39 WBC 1.8 L (3.8-10.6) k/uL RBC 3.67 L (4.30-5.90) m/uL Hgb 11.2 L (13.0-17.5) gm/dL Hct 34.0 L (39.0-53.0) % Plt Count 145 L (150-450) k/uL Comprehensive Metabolic Panel 06/05/24 Range/Units 12:39 Sodium 136 L (137-145) mmol/L Potassium 3.8 (3.5-5.1) mmol/L Chloride 104 (98-107) mmol/L Carbon Dioxide 27 (22-30) mmol/L BUN 23 H (9-20) mg/dL Creatinine 1.40 H (0.66-1.25) mg/dL Glucose 79 (74-99) mg/dL Calcium 8.4 (8.4-10.2) mg/dL AST 39 (17-59) U/L ALT 37 (4-49) U/L Alkaline Phosphatase 41 (38-126) U/L Total Protein 5.3 L (6.3-8.2) g/dL Albumin 3.2 L (3.5-5.0) g/dL Current Medications Generic Name Dose Route Start Last Admin Trade Name Freq PRN Reason Stop Dose Admin Acetaminophen 650 mg 06/05/24 15:42 06/05/24 18:32 Acetaminophen Tab 325 Mg Tab PO 650 mg Q6HR PRN Administration Mild Pain or Fever > 100.5 Albuterol Sulfate 2 puff 06/05/24 16:09 Albuterol Hfa Inhaler INHALATION RT-QID PRN Shortness Of Breath Or Wheezing Aspirin 81 mg 06/06/24 09:00 Aspirin 81 Mg PO DAILY ROSALBA Atorvastatin Calcium 40 mg 06/05/24 21:00 06/05/24 21:44 Atorvastatin 40 Mg Tab PO 40 mg HS ROSALBA Administration Budesonide/Formoterol Fumarate 2 puff 06/05/24 20:00 06/05/24 21:18 Symbicort 80-4.5 Mcg Inhaler INHALATION 2 puff RT-BID ROSALBA Administration Clopidogrel Bisulfate 75 mg 06/06/24 09:00 Clopidogrel 75 Mg Tab PO DAILY ROSALBA Dextrose/Water 25 ml 06/05/24 17:36 Dextrose 50% Syringe 50 Ml IVP PER PROTOCOL PRN Hypoglycemia Protocol Dextrose/Water 50 ml 06/05/24 17:36 Dextrose 50% Syringe 50 Ml IVP PER PROTOCOL PRN Hypoglycemia Protocol Enoxaparin Sodium 40 mg 06/06/24 09:00 Enoxaparin 40 Mg/0.4 Ml Syringe SQ DAILY ROSALBA Piperacillin Sod/Tazobactam 100 mls @ 25 mls/hr 06/05/24 18:00 06/06/24 02:00 Sod 3.375 gm/ Sodium Chloride IVPB 25 mls/hr Q8H ROSALBA Administration Protocol Insulin Aspart 0 unit 06/05/24 21:00 06/06/24 06:28 Insulin Aspart (Novolog) 100 Unit/Ml Vial SQ 1 unit ACHS ROSALBA Administration Protocol Methylprednisolone Sodium Succinate 40 mg 06/06/24 08:00 Methylprednisolone Sod Succi 40 Mg/Ml 1 Ml Vial IV Q8HR ROSALBA Metoprolol Succinate 25 mg 06/06/24 09:00 Metoprolol Succinate (Er) 25 Mg Tab.Er.24h PO DAILY ROASLBA Montelukast Sodium 10 mg 06/05/24 21:00 06/05/24 21:44 Montelukast 10 Mg Tab PO 10 mg HS ROSALBA Administration Naloxone HCl 0.2 mg 06/05/24 15:42 Naloxone 0.4 Mg/Ml 1 Ml Vial IV Q2M PRN Opioid Reversal Pantoprazole Sodium 40 mg 06/05/24 17:30 06/06/24 06:27 Pantoprazole 40 Mg Tablet PO 40 mg AC-BID ROSALBA Administration Tamsulosin HCl 0.4 mg 06/05/24 21:00 06/05/24 21:44 Tamsulosin 0.4 Mg Cap.Er.24h PO 0.4 mg HS ROSALBA Administration Tiotropium [place] 2 puff 06/06/24 08:00 Tiotropium 2.5 Mcg Inhaler INHALATION RT-DAILY ROSALBA Torsemide 10 mg 06/06/24 09:00 Torsemide 20 Mg Tab PO DAILY ROSALBA Intake and Output 06/05/24 06/06/24 06/06/24 22:59 06:59 14:59 Intake Total 120 Output Total 150 300 Balance -30 -300 Intake: Oral 120 Output: Urine 150 300 Other: Voiding Method Urinal Urinal Weight 68.039 kg 74 kg 06/05/24 12:39 06/05/24 12:39
[2024-06-06 09:34] LABS: Lymphocytes # (M) 0.97 k/uL (1.0-4.8); Monocytes # (M) 0.22 k/uL (0-1.0); Neutrophils # (M) 0.51 k/uL (1.3-7.7); Neutrophils % (M) 30 %; Nucleated Red Blood Cells 0 /100 WBC (0-0); Total Cells Counted 100
--- NOTE | 2024-06-06 11:24 | P.PN ---
Subjective Progress Note Date: 06/06/24 79 year old M with PMH of systolic CHF with EF 40 to 45%, COPD on 2L home O2, chronic kidney disease, hypertension, hyperlipidemia, non-Hodgkins lymphoma, CAD with CABG, AAA with stent, carotid stenosis with endarterectomy presents to the ED for shortness of breath. He recently underwent bronchoscopy with BAL with Dr. Cano on 05/13 with cultures resulting in Pseudomonas and ariel albicans. He was discharged on Ciprofloxacin at that time. He underwent repeat bronchoscopy with BAL with Dr. Cano on 06/03. He felt well when he went home. Over the last 1-2 days he reports fever and increased shortness of breath. He was exposed to COVID. This prompted him to come back to the ED. In the ED he underwent extensive evaluation. Tmax 101.9F, BP 109/69, HR 101, RR 24, 96% on 3L. CBC, Coag panel, CMP significant for WBC 1.8, RBC 3.67, Hg 11.2, Hct 34, Plt 145, APTT 20.2, Na 136, BUN 23, Cr 1.4, alb 3.2. Lactic acid 2.5. Mag 1.3. Troponin 0.058, 0.095. LDH 325. CRP 6.2. COVID 19+. EKG sinus tachycardia with RBBB. CXR showed COPD with stable basilar atelectasis or scarring favored over PNA. Patient is admitted for further workup and management. 06/06 Patient was seen and examined. Reports improved breathing. 99% on 3L NC. Procal 0.43. Troponins 0.095, 0.098. Lactic acid 1.1. Discussed with Dr. Cano, continue present management for one more day. CBC and BMP significant for WBC 1.7, RBC 3.59, Hg 11.2, Hct 33.3, Plt 125, Na 134, BUN 27, Cr 1.4, glu 189, Ca 8.2. Mag 2.0. General: non toxic, no distress, appears at stated age Derm: warm, dry Head: atraumatic, normocephalic, symmetric Eyes: EOMI, no lid lag, anicteric sclera Mouth: no lip lesion, mucus membranes moist Cardiovascular: S1S2 reg, no murmur Lungs: Scattered expiratory wheezing bilaterally, no rhonchi, no rales , no accessory muscle use Ext: no gross muscle atrophy, no edema, no contractures Neuro: no focal neuro deficits Psych: Alert, oriented, appropriate affect Based on my assessment of this patient, this patient meets a high complexity level of care. Active conditions: Neutropenic sepsis: ANC 468. Likely related to COVID 19 infection as Pro-judi is negative. Immunocompromised given chronic steroid use. Recent BAL culture with Pseudomonas. Continue Zosyn 3.75g IV TID. Follow up BCx, Sputum Cx, Legionella Ag. Telemetry monitoring. Maintain MAP > 65. Judicious use of fluids given h/o CHF. Pulmonary on board. COVID 19 PNA: SoluMedrol 40 mg IV TID. Consider Remdesivir if clinical condition worsens. Isolation precautions. Bronchodilators as below. Acute on chronic COPD exacerbation: Symbicort 2 INH BID. Albuterol INH QID PRN. Singulair 10 mg PO QD. Spiriva 2 INH QD. Elevated Troponin: Likely Type II NSTEMI. No chest pain. Troponins flat. ASA 81 mg PO QD. Lipitor 40 mg PO QHS. Plavix 75 mg PO QD. Metoprolol 25 mg PO QD. Cardiology on board. Pancytopenia likely related to ongoing infection Diabetes mellitus: A1c 7.3. ISS. Accuchecks ACHS. Hypoglycemic precautions. Elevated D-Dimer: Likely related to COVID. Resolved: HypoMag, Lactic acidosis. Chronic conditions: Chronic kidney disease at baseline. Systolic CHF with EF 40-45%: Appears euvolemic. Hypertension: Metoprolol as above. Dyslipidemia: Lipitor as above. non-Hodgkins lymphoma CAD with CABG: ASA, Lipitor, Plavix, Metoprolol as above. AAA with stent: ASA, Lipitor, Plavix, Metoprolol as above. Carotid stenosis with endarterectomy: ASA, Lipitor, Plavix, as above. CODE STATUS: FULL CODE DVT Prophylaxis: Lovenox GI Prophylaxis: Protonix Designated medical POA if patient is not able to make medical decisions for themselves: I have reviewed the following distributor sales consultant notes: Pulmonary, Cardiology. I have reviewed the results of the following tests: Procal. Troponin x 2. Lactic acid. CBC, BMP, Mag. I have ordered the following tests: BCx, Sputum Cx, Legionella Ag pending. I have discussed the care of this patient with the following independent historian: I have independently interpreted the following test below: I have discussed the management of this patient with the following physician: Dr. Cano. Objective - Vital Signs Vital signs: Vital Signs Temp 97.6 F 06/06/24 03:28 Pulse 80 06/06/24 03:28 Resp 18 06/06/24 03:28 BP 95/53 06/06/24 03:28 Pulse Ox 99 06/06/24 03:28 FiO2 Intake & Output 06/05/24 06/06/24 06/06/24 18:59 06:59 18:59 Intake Total 120 Output Total 150 300 Balance -30 -300 Weight 68.039 kg 74 kg Intake: Oral 120 Output: Urine 150 300 Other: Voiding Method Urinal - Labs CBC & Chem 7: 06/06/24 07:18 06/06/24 07:18 Labs: Abnormal Lab Results - Last 24 Hours (Table) 06/05/24 06/05/24 06/05/24 Range/Units 12:39 12:39 12:39 WBC 1.8 L (3.8-10.6) k/uL RBC 3.67 L (4.30-5.90) m/uL Hgb 11.2 L (13.0-17.5) gm/dL Hct 34.0 L (39.0-53.0) % Plt Count 145 L (150-450) k/uL Neutrophils # (Manual) 0.40 L* (1.3-7.7) k/uL Lymphocytes # (Manual) 0.97 L (1.0-4.8) k/uL APTT 20.2 L (22.0-30.0) sec D-Dimer (<0.60) mg/L FEU Sodium 136 L (137-145) mmol/L BUN 23 H (9-20) mg/dL Creatinine 1.40 H (0.66-1.25) mg/dL Plasma Lactic Acid Selvin (0.7-2.0) mmol/L Magnesium 1.3 L (1.6-2.3) mg/dL Lactate Dehydrogenase (120-246) U/L Troponin I (0.000-0.034) ng/mL C-Reactive Protein (<1.0) mg/dL Total Protein 5.3 L (6.3-8.2) g/dL Albumin 3.2 L (3.5-5.0) g/dL SARS-CoV-2 (PCR) (Not Detectd) 06/05/24 06/05/24 06/05/24 Range/Units 12:39 12:39 12:39 WBC (3.8-10.6) k/uL RBC (4.30-5.90) m/uL Hgb (13.0-17.5) gm/dL Hct (39.0-53.0) % Plt Count (150-450) k/uL Neutrophils # (Manual) (1.3-7.7) k/uL Lymphocytes # (Manual) (1.0-4.8) k/uL APTT (22.0-30.0) sec D-Dimer 7.31 H (<0.60) mg/L FEU Sodium (137-145) mmol/L BUN (9-20) mg/dL Creatinine (0.66-1.25) mg/dL Plasma Lactic Acid [place]vin 2.5 H* (0.7-2.0) mmol/L Magnesium (1.6-2.3) mg/dL Lactate Dehydrogenase (120-246) U/L Troponin I 0.058 H* (0.000-0.034) ng/mL C-Reactive Protein (<1.0) mg/dL Total Protein (6.3-8.2) g/dL Albumin (3.5-5.0) g/dL SARS-CoV-2 (PCR) (Not Detectd) 06/05/24 06/05/24 06/05/24 Range/Units 12:47 16:09 16:15 WBC (3.8-10.6) k/uL RBC (4.30-5.90) m/uL Hgb (13.0-17.5) gm/dL Hct (39.0-53.0) % Plt Count (150-450) k/uL Neutrophils # (Manual) (1.3-7.7) k/uL Lymphocytes # (Manual) (1.0-4.8) k/uL APTT (22.0-30.0) sec D-Dimer (<0.60) mg/L FEU Sodium (137-145) mmol/L BUN (9-20) mg/dL Creatinine (0.66-1.25) mg/dL Plasma Lactic Acid Selvin (0.7-2.0) mmol/L Magnesium (1.6-2.3) mg/dL Lactate Dehydrogenase 325 H (120-246) U/L Troponin I 0.095 H* (0.000-0.034) ng/mL C-Reactive Protein 6.2 H (<1.0) mg/dL Total Protein (6.3-8.2) g/dL Albumin (3.5-5.0) g/dL SARS-CoV-2 (PCR) Detected A (Not Detectd) 06/05/24 Range/Units 18:33 WBC (3.8-10.6) k/uL RBC (4.30-5.90) m/uL Hgb (13.0-17.5) gm/dL Hct (39.0-53.0) % Plt Count (150-450) k/uL Neutrophils # (Manual) (1.3-7.7) k/uL Lymphocytes # (Manual) (1.0-4.8) k/uL APTT (22.0-30.0) sec D-Dimer (<0.60) mg/L FEU Sodium (137-145) mmol/L BUN (9-20) mg/dL Creatinine (0.66-1.25) mg/dL Plasma Lactic Acid [place] (0.7-2.0) mmol/L Magnesium (1.6-2.3) mg/dL Lactate Dehydrogenase (120-246) U/L Troponin I 0.098 H* (0.000-0.034) ng/mL C-Reactive Protein (<1.0) mg/dL Total Protein (6.3-8.2) g/dL Albumin (3.5-5.0) g/dL SARS-CoV-2 (PCR) (Not Detectd)
--- NOTE | 2024-06-06 14:02 | CA ---
Transthoracic Echo Report Name: Dl Calvin Age: 79 Gender: M : 1945 Exam Date: 06/06/2024 09:18 Exam Location: [facility] Ht (in): 66 Wt (lb): 163 Ordering Physician: Amy Calzada Attending/Referring Phys: [id number], Zheng Loan Examiner Gayle Martinez, CHOLO Procedure CPT: Indications: abnormal troponins, covid, hx of CAD, LV function Cardiac Hx: CABG Technical Quality: Good Contrast 1: Total Dose (mL): Contrast 2: Total Dose (mL): MEASUREMENTS (Male / Female) Normal Values 2D ECHO LV Diastolic Diameter PLAX 4.2 cm 4.2 - 5.9 / 3.9 - 5.3 cm LV Systolic Diameter PLAX 3.2 cm IVS Diastolic Thickness 1.3 cm 0.6 - 1.0 / 0.6 - 0.9 cm LVPW Diastolic Thickness 1.2 cm 0.6 - 1.0 / 0.6 - 0.9 cm LV Relative Wall Thickness 0.6 RV Internal Dim ED PLAX 4.1 cm LVOT Diameter 2.0 cm LA Systolic Diameter LX 3.3 cm 3.0 - 4.0 / 2.7 - 3.8 cm LV Diastolic Volume MOD 4C 106.6 cm??? LV Systolic Volume MOD 4C 50.7 cm??? LV Ejection Fraction MOD 4C 52.4 % LV Cardiac Index MOD 4C 1343.9 cm???/min???m??? LV Diastolic Length 4C 8.3 cm LV Systolic Length 4C 6.7 cm LV Diastolic Volume MOD 2C 92.9 cm??? LV Systolic Volume MOD 2C 43.9 cm??? LV Ejection Fraction MOD 2C 52.8 % LV Cardiac Index MOD 2C 1180.3 cm???/min???m??? LV Diastolic Length 2C 8.3 cm LV Systolic Length 2C 6.8 cm LA Volume 49.9 cm??? 18 - 58 / 22 - 52 cm??? LA Volume Index 26.7 cm???/m??? 16 - 28 cm???/m??? M-MODE Aortic Root Diameter MM 3.3 cm DOPPLER AV Peak Velocity 292.9 cm/s AV Peak Gradient 34.3 mmHg AV Mean Velocity 205.4 cm/s AV Mean Gradient 19.3 mmHg AV Velocity Time Integral 62.6 cm LVOT Peak Velocity 107.3 cm/s LVOT Peak Gradient 4.6 mmHg LVOT Velocity Time Integral 23.1 cm LVOT Stroke Volume 70.4 cm??? LVOT Stroke Volume Index 38.4 ml/m??? LVOT Cardiac Index 1694.1 cm???/min???m??? AV Area Cont Eq vti 1.1 cm??? AV Area Cont Eq pk 1.1 cm??? MV Area PHT 2.5 cm??? Mitral E Point Velocity 76.1 cm/s Mitral A Point Velocity 111.1 cm/s Mitral E to A Ratio 0.7 MV Deceleration Time 299.9 ms TR Peak Velocity 252.8 cm/s TR Peak Gradient 25.6 mmHg Right Ventricular Systolic Press 30.6 mmHg FINDINGS Left Ventricle Left ventricular ejection fraction is estimated at 55-60 %.Mildly increased left ventricular wall thickness. Normal left ventricular systolic function with no obvious regional wall motion abnormalities. Right Ventricle Moderate right ventricular dilatation. No pulmonary hypertension. Right Atrium Normal right atrial size. No right atrial thrombus or mass seen. Left Atrium Normal left atrial size. No left atrial thrombus or mass present. Mitral Valve Structurally normal mitral valve. No evidence for mitral valve prolapse. No mitral stenosis. Trace to mild mitral regurgitation. Aortic Valve Trileaflet aortic valve. Diffuse thickening of the aortic valve cusps with reduced excursion. Mild aortic stenosis with a peak gradient of 34 mmHg and a mean gradient of 19 mmHg. Tricuspid Valve Structurally normal tricuspid valve. Mild tricuspid regurgitation. Pulmonic Valve Structurally normal pulmonic valve. Mild pulmonic regurgitation. Pericardium No pericardial or pleural effusion. Aorta Normal size aortic root and proximal ascending aorta. CONCLUSIONS 1. Normal left ventricular size and systolic function 2. Mild aortic stenosis 3. Mild tricuspid and pulmonic regurgitation 4. Dilated right ventricle Previewed by: Dr. Tonya Dorantes MD (Electronically Signed) Final Date: 06 June 2024 14:02
--- NOTE | 2024-06-06 14:25 | P.PN ---
Subjective Progress Note Date: 06/06/24 This is a 79-year-old male patient who is coming in with ongoing fever, general ized weakness, cough and congestion and a worsening shortness of breath that developed over the past 24 to 48 hours. He is very well-known to me. I treated him few weeks back in the hospital for a pseudomonal tracheobronchitis/pneumonia. At that time, the patient received inpatient bronchoscopy followed by outpatient antibiotics with ciprofloxacin. Improved. He was seen in follow-up in the office and I performed another bronchoscopy on him 48 hours ago to reevaluate the presence of ongoing pseudomonal infection. The patient underwent the bronchoscopy without any major complications. He was discharged home. The final cultures and sensitivities are still pending. Meanwhile, his condition gets worse and he gets admitted to the hospital because of a COVID-19 infection. At this point in time, the patient is on 3 L of oxygen via nasal cannula with a pulse ox of 95%. The white cell count is 1.8 with a hemoglobin of 1.2 and a platelet count of 145. His INR and PT are within normal limits. PTT is at 20. Lactic acid 2.5. BUN is 24 with a creatinine of 1.4 and sodium levels at 136. The patient is known to have severe COPD. The patient has metabolic combination of Wixela and Spiriva an outpatient basis. His previous pulmonary function test from 2020 has shown as an FEV1 of 39% of predicted at baseline. He is also oxygen dependent and utilizes oxygen on and off as requirement of oxygen becomes more needed whenever he gets an acute exacerbation. He has class III/IV chronic exertional dyspnea. He is also being monitored for a right upper lobe pulmonary nodule which is measuring 1.1 cm in size there was noted to be PET avid. Based on his advanced COPD and limited performance status, we decided to monitor and continue surveillance of this pulmonary nodule and decide at the later stage if SBRT would be of any benefit for this patient. He is also known to have cor onary artery disease, has undergone previous coronary bypass surgery. He has also undergone previous stenting to SVG to RCA. Other comorbidities include hypertension, hyperlipidemia, previous history of non-Hodgkin's lymphoma treated with rituximab and the patient has carotid artery disease, abdominal aortic aneurysm with previous endovascular stent grafting and the patient has a aorto by iliac endovascular graft along with previous history of a upper GI bleed related to a duodenal ulcer which resulted into significant blood loss anemia. Most recently, the patient was hospitalized for a pseudomonal tracheobronchitis/pneumonia treated with a 3-week course of IV antibiotics with ciprofloxacin. 06/06/2024, the patient is doing well. Afebrile. He feels that he is gradually improving. No new complaints for now. No nausea. No vomiting. No emesis. No change in taste. No altered mentation. He is currently on 3 Suboxone by nasal cannula while his pulse ox is at 99%. I started the patient on oral ciprofloxacin. Subsequently, the patient was placed on IV Zosyn pending further results from the bronchial lavage that was done earlier. Meanwhile, the white cell count is 1.7, hemoglobin 11.2 and a platelet count of 125. BUN is 27 with a creatinine of 1.4 and a sodium levels at 134. Continues to be leukopenic. Rest of the medications remain unchanged and the patient remains on Solu-Medrol 40 mg every 8 hours. Objective - Vital Signs Vital signs: Vital Signs Temp 97.6 F 06/06/24 03:28 Pulse 80 06/06/24 03:28 Resp 18 06/06/24 03:28 BP 95/53 06/06/24 03:28 Pulse Ox 99 06/06/24 03:28 FiO2 Intake & Output 06/05/24 06/06/24 06/06/24 18:59 06:59 18:59 Intake Total 120 Output Total 150 300 Balance -30 -300 Weight 68.039 kg 74 kg Intake: Oral 120 Output: Urine 150 300 Other: Voiding Method Urinal - Exam - Constitutional General appearance: cooperative, mild distress - EENT Eyes: EOMI Ears: negative: bulging, bullous, dull, erythema, fluid, myringotomy tube, obstructed by cerumen, scarring, unable to vistualize, other - Neck Neck: no lymphadenopathy Carotids: negative: upstroke normal, upstroke delayed, upstroke diminished, upstroke bounding, bruit absent, bruit present Thyroid: negative: normal size, enlarged, firm, nodule - Respiratory Respiratory: bilateral: diminished, rales, wheezing, prolonged expiration - Cardiovascular Rhythm: regular Heart sounds: abnormal: S1, S2 - Gastrointestinal General gastrointestinal: no organomegaly, soft, no tenderness - Integumentary Integumentary: normal - Neurologic Neurologic: CNII-XII intact - Musculoskeletal Musculoskeletal: gait normal - Psychiatric Psychiatric: A&O x's 3 - Labs CBC & Chem 7: 06/06/24 07:18 06/06/24 07:18 Labs: Abnormal Lab Results - Last 24 Hours (Table) 06/05/24 06/05/24 06/05/24 Range/Units 12:39 12:39 12:39 WBC 1.8 L (3.8-10.6) k/uL RBC 3.67 L (4.30-5.90) m/uL Hgb 11.2 L (13.0-17.5) gm/dL Hct 34.0 L (39.0-53.0) % Plt Count 145 L (150-450) k/uL Neutrophils # (Manual) 0.40 L* (1.3-7.7) k/uL Lymphocytes # (Manual) 0.97 L (1.0-4.8) k/uL APTT 20.2 L (22.0-30.0) sec D-Dimer (<0.60) mg/L FEU Sodium 136 L (137-145) mmol/L BUN 23 H (9-20) mg/dL Creatinine 1.40 H (0.66-1.25) mg/dL Glucose (74-99) mg/dL Plasma Lactic Acid Selvin (0.7-2.0) mmol/L Calcium (8.4-10.2) mg/dL Magnesium 1.3 L (1.6-2.3) mg/dL Lactate Dehydrogenase (120-246) U/L Troponin I (0.000-0.034) ng/mL C-Reactive Protein (<1.0) mg/dL Total Protein 5.3 L (6.3-8.2) g/dL Albumin 3.2 L (3.5-5.0) g/dL SARS-CoV-2 (PCR) (Not Detectd) 06/05/24 06/05/24 06/05/24 Range/Units 12:39 12:39 12:39 WBC (3.8-10.6) k/uL RBC (4.30-5.90) m/uL Hgb (13.0-17.5) gm/dL Hct (39.0-53.0) % Plt Count (150-450) k/uL Neutrophils # (Manual) (1.3-7.7) k/uL Lymphocytes # (Manual) (1.0-4.8) k/uL APTT (22.0-30.0) sec D-Dimer 7.31 H (<0.60) mg/L FEU Sodium (137-145) mmol/L BUN (9-20) mg/dL Creatinine (0.66-1.25) mg/dL Glucose (74-99) mg/dL Plasma Lactic Acid Selvin 2.5 H* (0.7-2.0) mmol/L Calcium (8.4-10.2) mg/dL Magnesium (1.6-2.3) mg/dL Lactate Dehydrogenase (120-246) U/L Troponin I 0.058 H* (0.000-0.034) ng/mL C-Reactive Protein (<1.0) mg/dL Total Protein (6.3-8.2) g/dL Albumin (3.5-5.0) g/dL SARS-CoV-2 (PCR) (Not Detectd) 06/05/24 06/05/24 06/05/24 Range/Units 12:47 16:09 16:15 WBC (3.8-10.6) k/uL RBC (4.30-5.90) m/uL Hgb (13.0-17.5) gm/dL Hct (39.0-53.0) % Plt Count (150-450) k/uL Neutrophils # (Manual) (1.3-7.7) k/uL Lymphocytes # (Manual) (1.0-4.8) k/uL APTT (22.0-30.0) sec D-Dimer (<0.60) mg/L FEU Sodium (137-145) mmol/L BUN (9-20) mg/dL Creatinine (0.66-1.25) mg/dL Glucose (74-99) mg/dL Plasma Lactic Acid Selvin (0.7-2.0) mmol/L Calcium (8.4-10.2) mg/dL Magnesium (1.6-2.3) mg/dL Lactate Dehydrogenase 325 H (120-246) U/L Troponin I 0.095 H* (0.000-0.034) ng/mL C-Reactive Protein 6.2 H (<1.0) mg/dL Total Protein (6.3-8.2) g/dL Albumin (3.5-5.0) g/dL SARS-CoV-2 (PCR) Detected A (Not Detectd) 06/05/24 06/06/24 Range/Units 18:33 07:18 WBC (3.8-10.6) k/uL RBC (4.30-5.90) m/uL Hgb (13.0-17.5) gm/dL Hct (39.0-53.0) % Plt Count (150-450) k/uL Neutrophils # (Manual) (1.3-7.7) k/uL Lymphocytes # (Manual) (1.0-4.8) k/uL APTT (22.0-30.0) sec D-Dimer (<0.60) mg/L FEU Sodium 134 L (137-145) mmol/L BUN 27 H (9-20) mg/dL Creatinine 1.40 H (0.66-1.25) mg/dL Glucose 189 H (74-99) mg/dL Plasma Lactic Acid Selvin (0.7-2.0) mmol/L Calcium 8.2 L (8.4-10.2) mg/dL Magnesium (1.6-2.3) mg/dL Lactate Dehydrogenase (120-246) U/L Troponin I 0.098 H* (0.000-0.034) ng/mL C-Reactive Protein (<1.0) mg/dL Total Protein (6.3-8.2) g/dL Albumin (3.5-5.0) g/dL SARS-CoV-2 (PCR) (Not Detectd) Assessment and Plan Plan: Acute COVID-19 infection, symptoms are of a new onset started approximate 24 to 48 hours ago. His is infected with the virus. No other significant extrapulmonary manifestations related to COVID-19 infection. The patient has been vaccinated in the past. No previous COVID-19 infections. The patient currently is on IV Solu-Medrol. No other significant extrapulmonary physicians of COVID-19 infection the patient is currently afebrile. Acute on chronic hypoxic respiratory failure secondary to above, currently on 3 L of oxygen by nasal cannula Acuity of exacerbation secondary to above Recent hospitalization for a pseudomonal tracheobronchitis/pneumonia status post repeat bronchoscopy that was done on 06/03/2024 the patient is still on oral ciprofloxacin, currently on IV Zosyn. Oxygen dependent chronic obstructive pulmonary disease with an FEV1 value 39% of predicted Chronic tobacco dependence of greater than 60 years Right upper lobe PET avid pulmonary nodule which is being monitored on outpatien t basis History of non-Hodgkin's lymphoma Chronic stage III kidney disease Coronary disease with previous coronary artery bypass surgery in 2001 History of abdominal aortic aneurysm status post stent placement in March 2022 Carotid stenosis status post endarterectomy History of ESBL E. coli and bronchial wash in 2021 Hyperlipidemia Hypertension Plan: Continue supportive treatment. Oxygen at 3 L/min nasal cannula Continue Advair and Spiriva here in the hospital and use albuterol HFA 4 times a day Continue IV Solu-Medrol 40 mg every 8 hours Continue IV Zosyn pending further culture results from the previous bronchial lavage May consider remdesivir if there is no significant improvement in his condition over the next 24 hours. Check LDH CRP and procalcitonin level. Check D-dimers Resume home medications Clinically stable Will continue to follow.
[2024-06-06] MEDS: LACTOBACILLUS ACIDOPHILUS/PECT 1 EACH CAPSULE PO SCH (20:50)
[2024-06-07 08:37] LABS: HCT 31.4 % (39.0-53.0); HGB 10.8 gm/dL (13.0-17.5); MCH 31.7 pg (25.0-35.0); MCHC 34.3 g/dL (31.0-37.0); MCV 92.6 fL (80.0-100.0); Mean Platelet Volume 9.4; Platelet Count 128 k/uL (150-450); RBC 3.39 m/uL (4.30-5.90); RDW 15.6 % (11.5-15.5); WBC 1.9 k/uL (3.8-10.6)
[2024-06-07 08:45] LABS: African American GFR (CKD) 58 (>60 ml/min/1.73 sqM); Anion Gap 3 mmol/L; Blood Urea Nitrogen 30 mg/dL (9-20); Calcium 7.9 mg/dL (8.4-10.2); Carbon Dioxide 29 mmol/L (22-30); Chloride 104 mmol/L (98-107); Glucose 182 mg/dL (74-99); Non-African American GFR(CKD) 50 (>60 ml/min/1.73 sqM); Potassium 4.3 mmol/L (3.5-5.1); Sodium 136 mmol/L (137-145)
[2024-06-07 11:06] VITALS: BP 132/64; PULSE 73; TEMP 97.7
--- NOTE | 2024-06-07 11:18 | P.DS ---
Providers Date of admission: 06/05/24 15:42 Expected date of discharge: 06/07/24 Attending physician: Benoit Ross Consults: 06/05/24 15:42 Consult Physician Urgent Consulting Provider: Neli Cano Consult Reason/Comments: hemoptysis, covid infection, copd, recent bronch Do you want consulting provider notified?: Yes Consult Physician Urgent Consulting Provider: [facility] Consult Reason/Comments: elevated trop Do you want consulting provider notified?: Yes Primary care physician: [facility] Hospital Course: 79 year old M with PMH of systolic CHF with EF 40 to 45%, COPD on 2L home O2, chronic kidney disease, hypertension, hyperlipidemia, non-Hodgkins lymphoma, CAD with CABG, AAA with stent, carotid stenosis with endarterectomy presents to the ED for shortness of breath. He recently underwent bronchoscopy with BAL with Dr. Cano on 05/13 with cultures resulting in Pseudomonas and ariel albicans. He was discharged on Ciprofloxacin at that time. He underwent repeat bronchoscopy with BAL with Dr. Cano on 06/03. He felt well when he went home. Over the last 1-2 days he reports fever and increased shortness of breath. He was exposed to COVID. This prompted him to come back to the ED. In the ED he underwent extensive evaluation. Tmax 101.9F, BP 109/69, HR 101, RR 24, 96% on 3L. CBC, Coag panel, CMP significant for WBC 1.8, RBC 3.67, Hg 11.2, Hct 34, Plt 145, APTT 20.2, Na 136, BUN 23, Cr 1.4, alb 3.2. Lactic acid 2.5. Mag 1.3. Troponin 0.058, 0.095. LDH 325. CRP 6.2. COVID 19+. EKG sinus tachycardia with RBBB. CXR showed COPD with stable basilar atelectasis or scarring favored over PNA. Patient is admitted for further workup and management. 06/07 Patient was seen and examined. Reports improved breathing now back to basel ine. Discussed with RN, cleared by Pulmonary for discharge. 98% on 2L NC. Legionella Ag negative. Echo EF 55-60% no wall motion abnormalities. BCx prelim negative at 24H. CBC and BMP significant for WBC 1.9, RBC 3.39, Hg 10.8, Hct 31.4, Plt 128, Na 136, BUN 30, Cr 1.33, glu 182, Ca 7.9. Discharge Instructions: Patient advised bronchodilators around the clock. Prednisone taper prescribed to pharmacy to resume 10 mg PO QD after the taper. He has 5 days of Ciprofloxacin left which he is instructed to continue. Follow up with PCP to monitor for resolution of pancytopenia. Follow up with PCP within 1-2 days, Dr. Cano within [address] Corbett within 1 week of discharge. General: non toxic, no distress, appears at stated age Derm: warm, dry Head: atraumatic, normocephalic, symmetric Eyes: EOMI, no lid lag, anicteric sclera Mouth: no lip lesion, mucus membranes moist Cardiovascular: S1S2 reg, no murmur Lungs: Scattered expiratory wheezing bilaterally, no rhonchi, no rales , no accessory muscle use Ext: no gross muscle atrophy, no edema, no contractures Neuro: no focal neuro deficits Psych: Alert, oriented, appropriate affect Discharge Diagnosis: Active conditions: Neutropenic sepsis COVID 19 PNA Acute on chronic COPD exacerbation Type II NSTEMI Pancytopenia likely related to ongoing infection Diabetes mellitus Elevated D-Dimer Resolved: HypoMag, Lactic acidosis. Chronic conditions: Chronic kidney disease at baseline. Systolic CHF with EF 40-45% Hypertension Dyslipidemia non-Hodgkins lymphoma CAD with CABG AAA with stent Carotid stenosis with endarterectomy This complex discharge took 35 minutes to complete. Patient Condition at Discharge: Stable Plan - Discharge Summary New Discharge Prescriptions: New predniSONE See Taper PO DIRECTED #30 tab Continue Nada-3/Dha/Epa/Fish Oil [Fish Oil 1,000 mg Softgel] 1 cap PO DAILY Pantoprazole [Protonix] 40 mg PO BID Multivitamins, Thera [Multivitamin (formulary)] 1 tab PO DAILY Tiotropium 2.5 Mcg/Puff [Spiriva Respimat 2.5 Mcg] 2 puff INHALATION RT-DAILY Atorvastatin [Lipitor] 40 mg PO HS Albuterol Sulfate [Albuterol Sulfate Hfa] 2 puff INHALATION RT-Q6H Clopidogrel [Plavix] 75 mg PO DAILY predniSONE [Deltasone] 10 mg PO DAILY Ciprofloxacin HCl [Cipro] 500 mg PO Q12HR 5 Days #28 tab Tamsulosin [Flomax] 0.4 mg PO HS Aspirin EC [Ecotrin Low Dose] 81 mg PO DAILY Torsemide [Demadex] 10 mg PO DAILY Metoprolol Succinate (ER) [Toprol XL] 25 mg PO DAILY Fluticasone Propion/Salmeterol [Fluticasone-Salmeterol 100-50] 1 puff INHALATION RT-BID Montelukast [Singulair] 10 mg PO HS glipiZIDE 5 mg PO BID #60 tablet Discharge Medication List Aspirin EC [Ecotrin Low Dose] 81 mg PO DAILY 06/15/22 [History] Multivitamins, Thera [Multivitamin (formulary)] 1 tab PO DAILY 06/15/22 [History] Nada-3/Dha/Epa/Fish Oil [Fish Oil 1,000 mg Softgel] 1 cap PO DAILY 06/15/22 [History] Pantoprazole [Protonix] 40 mg PO BID 06/15/22 [History] Tamsulosin [Flomax] 0.4 mg PO HS 06/15/22 [History] Tiotropium 2.5 Mcg/Puff [Spiriva Respimat 2.5 Mcg] 2 puff INHALATION RT-DAILY 06/15/22 [History] Torsemide [Demadex] 10 mg PO DAILY 09/22/22 [History] Fluticasone Propion/Salmeterol [Fluticasone-Salmeterol 100-50] 1 puff INHALATION RT-BID 06/05/23 [History] Metoprolol Succinate (ER) [Toprol XL] 25 mg PO DAILY 06/05/23 [History] Albuterol Sulfate [Albuterol Sulfate Hfa] 2 puff INHALATION RT-Q6H 05/07/24 [History] Atorvastatin [Lipitor] 40 mg PO HS 05/07/24 [History] Clopidogrel [Plavix] 75 mg PO DAILY 05/07/24 [History] Montelukast [Singulair] 10 mg PO HS 05/07/24 [History] glipiZIDE 5 mg PO BID #60 tablet 05/14/24 [Rx] predniSONE [Deltasone] 10 mg PO DAILY 06/03/24 [History] Ciprofloxacin HCl [Cipro] 500 mg PO Q12HR 5 Days #28 tab 06/07/24 [Rx] predniSONE See Taper PO DIRECTED #30 tab 06/07/24 [Rx] Follow up Appointment(s)/Referral(s): Monster Kinney, [Primary Care Provider] - 1-2 days
--- NOTE | 2024-06-07 12:07 | P.PN ---
Subjective HISTORY OF PRESENT ILLNESS: This is a 79-year-old male with a past medical history significant for COPD, ongoing nicotine dependence, chronic kidney disease, AAA repair, coronary artery disease with previous CABG and subsequent stenting. Patient follows in the office with Dr. Corbett. We have been asked to see the patient in consultation for abnormal troponins. Patient examined at the bedside. Patient states he came to the hospital to chief complaint of shortness of breath, cough, and fever and chills. He states that his was diagnosed with COVID last week. He reports he tested at home but he tested negative. He states that the morning he came to the hospital he tried to get out of bed and was so weak that he fell and was unable to get up. He was found to be positive for COVID. At the time of examination, he denies any shortness of breath. It is noted that the patient was hospitalized recently for pseudomonal tracheobronchitis and pneumonia. The patient did undergo bronchoscopy at that time. The patient also underwent repeat bronchoscopy and BAL by Dr. Cano and on June 03, 2024. He remains on IV antibiotics. The patient denies any chest pain or pressure at the time of examination. He also denies any chest pain or pressure prior to coming into the hospital. He does report history of coronary artery disease. He states that he underwent a three-vessel CABG in 2001. He reports having subsequent stenting in 2021 and also in October of this year at [facility]. He is unsure of which vessel was stented at that time. He reports that he continues to smoke on occasion. He also has home O2 that he uses as needed. Patient denies having a recent echocardiogram or stress echo with his primary ca rdiologist. DIAGNOSTICS: - EKG reveals sinus mechanism with right bundle branch block. No signs of acute ischemia. - Chest xray COPD with stable basilar atelectasis or scarring favored over pneumonia. - Laboratory data: WBC 1.7. Hemoglobin 11.2. Platelet count 125. Sodium 134. Potassium 4.2. BUN 27. Creatinine 1.40. Troponin 0.058. 0.095. 0.098. - Current home cardiac medications include aspirin 81 mg daily, Lipitor 40 mg at night, Plavix 75 mg daily, metoprolol succinate 25 mg daily, Demadex 10 mg daily - Most recent echocardiogram obtained in September 2022 revealing ejection fracti on 40 to 45%, mild pulmonary hypertension, mild to moderate mitral regurgitation, anterior septal hypokinesis extending into the apex, moderate aortic stenosis with peak gradient of 33.4 mmHg and mean gradient of 19 mmHg. No aortic regurgitation, mild tricuspid regurgitation 06/07/2024 Patient examined this morning at the bedside. Patient has been up ambulating in his room. He denies any chest pain or pressure. He denies any shortness of breath. Echocardiogram completed revealing ejection fraction of 55 to 60%, mild aortic stenosis, mild tricuspid regurgitation PHYSICAL EXAM: VITAL SIGNS: Reviewed. GENERAL: Well-developed in no acute distress. HEENT: Head is normocephalic. Pupils are equal, round. Sclerae anicteric. Mucous membranes of the mouth are moist. Neck supple. No JVD or thyromegaly LUNGS: Respirations even and unlabored. Lungs with mild expiratory wheezing HEART: Regular rate and rhythm. S1 and S2 heard. Systolic murmur noted. ABDOMEN: Soft. Nondistended. Nontender. EXTREMITIES: Normal range of motion. No clubbing or cyanosis. Peripheral pulses intact. No lower extremity edema NEUROLOGIC: Awake and alert. Oriented x 3. ASSESSMENT: Shortness of breath Acute COVID-19 Recent hospitalization secondary to pseudomonal tracheobronchitis and pneumonia, status post bronchoscopy x 2 Elevated troponin, likely type II NM secondary to oxygen supply/demand mismatch Coronary artery disease with previous three-vessel CABG in 2001 and subsequent stenting, most recently in October 2023 at [facility] Ischemic cardiomyopathy, 4045%, with improved EF now 55 to 60% Mild aortic stenosis Chronic kidney disease COPD Chronic hypoxic respiratory failure, on home oxygen PRN History of AAA with previous stent graft History of carotid stenosis History of non-Hodgkin's lymphoma Hypertension Hyperlipidemia Ongoing nicotine dependence PLAN: Continue current cardiac medications Awaiting records from patient's primary top coater Patient is stable for discharge home today from a cardiac standpoint. He is to follow-up postdischarge with his primary top coater Further recommendations pending patient course Nurse practitioner note has been reviewed by physician. Signing provider agrees with the documented findings, assessment, and plan of care documented by BOTTLE BLOWER as a scribe. Objective - Vital Signs Vital signs: Vital Signs Temp 97.7 F 06/07/24 08:00 Pulse 73 06/07/24 08:00 Resp 18 06/07/24 08:00 BP 132/64 06/07/24 08:00 Pulse Ox 97 06/07/24 08:00 FiO2 Intake & Output 06/06/24 06/07/24 06/07/24 18:59 06:59 18:59 Intake Total 360 480 Output Total 600 Balance 360 -600 480 Weight 67.9 kg Intake: Oral 360 480 Output: Urine 600 Other: Voiding Method Urinal # Voids 1 - Labs CBC & Chem 7: 06/07/24 07:37 06/07/24 07:37 Labs: Abnormal Lab Results - Last 24 Hours (Table) 06/07/24 06/07/24 Range/Units 07:37 07:37 WBC 1.9 L (3.8-10.6) k/uL RBC 3.39 L (4.30-5.90) m/uL Hgb 10.8 L (13.0-17.5) gm/dL Hct 31.4 L (39.0-53.0) % RDW 15.6 H (11.5-15.5) % Plt Count 128 L (150-450) k/uL Sodium 136 L (137-145) mmol/L BUN 30 H (9-20) mg/dL Creatinine 1.33 H (0.66-1.25) mg/dL Glucose 182 H (74-99) mg/dL Calcium 7.9 L (8.4-10.2) mg/dL Microbiology - Last 24 Hours (Table) 06/06/24 08:59 Gram Stain - Preliminary Sputum Sputum Culture - Preliminary Gram Neg Bacilli 06/05/24 18:35 Blood Culture - Preliminary Blood
--- NOTE | 2024-06-07 14:00 | P.PN ---
Subjective Progress Note Date: 06/07/24 This is a 79-year-old male patient who is coming in with ongoing fever, general ized weakness, cough and congestion and a worsening shortness of breath that developed over the past 24 to 48 hours. He is very well-known to me. I treated him few weeks back in the hospital for a pseudomonal tracheobronchitis/pneumonia. At that time, the patient received inpatient bronchoscopy followed by outpatient antibiotics with ciprofloxacin. Improved. He was seen in follow-up in the office and I performed another bronchoscopy on him 48 hours ago to reevaluate the presence of ongoing pseudomonal infection. The patient underwent the bronchoscopy without any major complications. He was discharged home. The final cultures and sensitivities are still pending. Meanwhile, his condition gets worse and he gets admitted to the hospital because of a COVID-19 infection. At this point in time, the patient is on 3 L of oxygen via nasal cannula with a pulse ox of 95%. The white cell count is 1.8 with a hemoglobin of 1.2 and a platelet count of 145. His INR and PT are within normal limits. PTT is at 20. Lactic acid 2.5. BUN is 24 with a creatinine of 1.4 and sodium levels at 136. The patient is known to have severe COPD. The patient has metabolic combination of Wixela and Spiriva an outpatient basis. His previous pulmonary function test from 2020 has shown as an FEV1 of 39% of predicted at baseline. He is also oxygen dependent and utilizes oxygen on and off as requirement of oxygen becomes more needed whenever he gets an acute exacerbation. He has class III/IV chronic exertional dyspnea. He is also being monitored for a right upper lobe pulmonary nodule which is measuring 1.1 cm in size there was noted to be PET avid. Based on his advanced COPD and limited performance status, we decided to monitor and continue surveillance of this pulmonary nodule and decide at the later stage if SBRT would be of any benefit for this patient. He is also known to have cor onary artery disease, has undergone previous coronary bypass surgery. He has also undergone previous stenting to SVG to RCA. Other comorbidities include hypertension, hyperlipidemia, previous history of non-Hodgkin's lymphoma treated with rituximab and the patient has carotid artery disease, abdominal aortic aneurysm with previous endovascular stent grafting and the patient has a aorto by iliac endovascular graft along with previous history of a upper GI bleed related to a duodenal ulcer which resulted into significant blood loss anemia. Most recently, the patient was hospitalized for a pseudomonal tracheobronchitis/pneumonia treated with a 3-week course of IV antibiotics with ciprofloxacin. 06/06/2024, the patient is doing well. Afebrile. He feels that he is gradually improving. No new complaints for now. No nausea. No vomiting. No emesis. No change in taste. No altered mentation. He is currently on 3 Suboxone by nasal cannula while his pulse ox is at 99%. I started the patient on oral ciprofloxacin. Subsequently, the patient was placed on IV Zosyn pending further results from the bronchial lavage that was done earlier. Meanwhile, the white cell count is 1.7, hemoglobin 11.2 and a platelet count of 125. BUN is 27 with a creatinine of 1.4 and a sodium levels at 134. Continues to be leukopenic. Rest of the medications remain unchanged and the patient remains on Solu-Medrol 40 mg every 8 hours. On 06/07/2024, patient is being seen for a follow-up. Patient is doing well. Continues to have some limited congested cough. No significant sputum production. He is on 2 L of oxygen by nasal cannula with a pulse ox of 97%. His repeat sputum sample was positive for stenotrophomonas. The same microorganism was also cultured from the bronchioloalveolar lavage which was obtained on 06/03/2024. Noted the patient also has been infected with COVID-19 and the patient is currently on systemic steroids. No new complaints otherwise for now. He wants to go home. His white cell count is at 1.9 with a hemoglobin of 10.9 and platelet count of 128. His BUN is 30 with a creatinine of 1.3 and sodium is at 136 with a potassium of 4.3. Noted the patient was taking ciprofloxacin on an outpatient basis. Will check sensitivities from the stenotrophomonas and decide accordingly. Meanwhile, the patient can continue the Cipro for the time being. Objective - Vital Signs Vital signs: Vital Signs Temp 97.6 F 06/06/24 20:30 Pulse 74 06/07/24 03:20 Resp 18 06/07/24 03:20 BP 127/58 06/07/24 03:20 Pulse Ox 98 06/07/24 03:20 FiO2 Intake & Output 06/06/24 06/07/24 06/07/24 18:59 06:59 18:59 Intake Total 360 480 Output Total 600 Balance 360 -600 480 Weight 67.9 kg Intake: Oral 360 480 Output: Urine 600 Other: Voiding Method Urinal # Voids 1 - Exam - Constitutional General appearance: cooperative, mild distress, currently on 3 L of oxygen by nasal cannula - EENT Eyes: EOMI Ears: negative: bulging, bullous, dull, erythema, fluid, myringotomy tube, obstructed by cerumen, scarring, unable to vistualize, other - Neck Neck: no lymphadenopathy Carotids: negative: upstroke normal, upstroke delayed, upstroke diminished, upstroke bounding, bruit absent, bruit present Thyroid: negative: normal size, enlarged, firm, nodule - Respiratory Respiratory: bilateral: diminished, rales, wheezing, prolonged expiration - Cardiovascular Rhythm: regular Heart sounds: abnormal: S1, S2 - Gastrointestinal General gastrointestinal: no organomegaly, soft, no tenderness - Integumentary Integumentary: normal - Neurologic Neurologic: CNII-XII intact - Musculoskeletal Musculoskeletal: gait normal - Psychiatric Psychiatric: A&O x's 3 - Labs CBC & Chem 7: 06/07/24 07:37 06/07/24 07:37 Labs: Abnormal Lab Results - Last 24 Hours (Table) 06/07/24 06/07/24 Range/Units 07:37 07:37 WBC 1.9 L (3.8-10.6) k/uL RBC 3.39 L (4.30-5.90) m/uL Hgb 10.8 L (13.0-17.5) gm/dL Hct 31.4 L (39.0-53.0) % RDW 15.6 H (11.5-15.5) % Plt Count 128 L (150-450) k/uL Sodium 136 L (137-145) mmol/L BUN 30 H (9-20) mg/dL Creatinine 1.33 H (0.66-1.25) mg/dL Glucose 182 H (74-99) mg/dL Calcium 7.9 L (8.4-10.2) mg/dL Microbiology - Last 24 Hours (Table) 06/05/24 18:35 Blood Culture - Preliminary Blood Assessment and Plan Plan: Acute COVID-19 infection, symptoms are of a new onset started approximate 24 to 48 hours ago. His is infected with the virus. No other significant extrapulmonary manifestations related to COVID-19 infection. The patient has been vaccinated in the past. No previous COVID-19 infections. The patient currently is on IV Solu-Medrol. No other significant extrapulmonary physicians of COVID-19 infection the patient is currently afebrile. Acute on chronic hypoxic respiratory failure secondary to above, currently on 3 L of oxygen by nasal cannula Acuity of exacerbation secondary to above Recent hospitalization for a pseudomonal tracheobronchitis/pneumonia status post repeat bronchoscopy that was done on 06/03/2024 the patient is still on oral ciprofloxacin, currently on IV Zosyn. Repeat sputum sample and the bronchial lavage that was done on this patient showed stenotrophomonas. Clinically however the patient was improving on ciprofloxacin that was given to him on outpatient basis and this will be continued. Oxygen dependent chronic obstructive pulmonary disease with an FEV1 value 39% of predicted Chronic tobacco dependence of greater than 60 years Right upper lobe PET avid pulmonary nodule which is being monitored on outpatient basis, measuring up to 1.4 cm in size, enlarging in size and the patient will need an SBRT at a later stage on outpatient basis. History of non-Hodgkin's lymphoma Chronic stage III kidney disease Coronary disease with previous coronary artery bypass surgery in 2001 History of abdominal aortic aneurysm status post stent placement in March 2022 Carotid stenosis status post endarterectomy History of ESBL E. coli and bronchial wash in 2021 Hyperlipidemia Hypertension Plan: Continue supportive treatment. Oxygen at 3 L/min nasal cannula Continue Advair and Spiriva here in the hospital and use albuterol HFA 4 times a day Discontinued IV Solu-Medrol start the patient on prednisone burst taper starting with 40 mg May continue ciprofloxacin on outpatient basis Resume home medications Clinically stable Will continue to follow.
[2024-06-12 15:06] LABS: Glucose,Whole Blood 148 mg/dL (70-110)
[2024-06-12 15:06] LABS: Glucose,Whole Blood 269 mg/dL (70-110)
[2024-06-12 15:06] LABS: Glucose,Whole Blood 180 mg/dL (70-110)
[2024-06-12 15:06] LABS: Glucose,Whole Blood 205 mg/dL (70-110)
[2024-06-12 15:06] LABS: Glucose,Whole Blood 117 mg/dL (70-110)
[2024-06-12 15:06] LABS: Glucose,Whole Blood 194 mg/dL (70-110)
[2024-06-12 15:06] LABS: Glucose,Whole Blood 196 mg/dL (70-110)
[2024-06-12 15:07] LABS: Glucose,Whole Blood 267 mg/dL (70-110)
== END 2024-06-07 12:42 | disposition home or self-care (01) | DRG 871 ==
LOC: EC 12:24 → SUPCPDRO 12:24 → 3SCARD 15:42
PROVIDERS: ADMIT Student in an Organized Health Care Education/Training Program; ATTEND Student in an Organized Health Care Education/Training Program
PROC: 8E0ZXY6 Isolation (ICD-10-PCS; principal; 2024-06-05)
DX: A41.89 Other specified sepsis (principal); I21.A1 Myocardial infarction type 2; U07.1 COVID-19; J12.82 Pneumonia due to coronavirus disease 2019; D61.818 Other pancytopenia; J44.1 Chronic obstructive pulmonary disease with (acute) exacerbation; E87.20 Acidosis, unspecified; I13.0 Hypertensive heart and chronic kidney disease with heart failure and stage 1 through stage 4 chronic kidney disease, or unspecified chronic kidney disease; D84.9 Immunodeficiency, unspecified; I50.22 Chronic systolic (congestive) heart failure; J96.11 Chronic respiratory failure with hypoxia; E11.22 Type 2 diabetes mellitus with diabetic chronic kidney disease; Z99.81 Dependence on supplemental oxygen; N18.30 Chronic kidney disease, stage 3 unspecified; E83.42 Hypomagnesemia; E78.5 Hyperlipidemia, unspecified; I25.10 Atherosclerotic heart disease of native coronary artery without angina pectoris; F17.210 Nicotine dependence, cigarettes, uncomplicated; I25.5 Ischemic cardiomyopathy; I45.10 Unspecified right bundle-branch block; Z95.1 Presence of aortocoronary bypass graft; Z86.79 Personal history of other diseases of the circulatory system; Z95.828 Presence of other vascular implants and grafts; Z79.02 Long term (current) use of antithrombotics/antiplatelets; Z79.52 Long term (current) use of systemic steroids; Z79.84 Long term (current) use of oral hypoglycemic drugs; Z79.82 Long term (current) use of aspirin; Z79.899 Other long term (current) drug therapy; Z85.72 Personal history of non-Hodgkin lymphomas
CPT/HCPCS: 36415; 71046; 80048; 80053; 83605; 83615; 83735; 83880; 84145; 84484; 85025; 85027; 85379; 85610; 85730; 86140; 87040; 87070; 87077; 87186; 87205; 87449; 87636; 93005; 93306; 94640; 94760; 96374; 99285

== ENCOUNTER 2024-06-18 13:05 | Inpatient (IN) | payer MEDICARE, BC ==
[2024-06-18 13:50] LABS: ALT 37 U/L (4-49); AST 52 U/L (17-59); African American GFR (CKD) 37 (>60 ml/min/1.73 sqM); Albumin 3.5 g/dL (3.5-5.0); Alkaline Phosphatase 64 U/L (38-126); Anion Gap 6 mmol/L; Blood Urea Nitrogen 39 mg/dL (9-20); Calcium 8.4 mg/dL (8.4-10.2); Carbon Dioxide 33 mmol/L (22-30); Chloride 100 mmol/L (98-107); Glucose 131 mg/dL (74-99); Non-African American GFR(CKD) 32 (>60 ml/min/1.73 sqM); Potassium 3.7 mmol/L (3.5-5.1); Sodium 139 mmol/L (137-145); Total Bilirubin 0.7 mg/dL (0.2-1.3); Total Protein 5.7 g/dL (6.3-8.2)
[2024-06-18 13:55] LABS: Basophils % (A) 0 %; Eosinophils % (A) 0 %; HCT 35.8 % (39.0-53.0); HGB 12.4 gm/dL (13.0-17.5); Lymphocytes # (A) 2.8 k/uL (1.0-4.8); Lymphocytes % (A) 46 %; MCHC 34.6 g/dL (31.0-37.0); MCV 89.6 fL (80.0-100.0); Mean Platelet Volume 9.2; Monocytes # (A) 0.4 k/uL (0-1.0); Monocytes % (A) 6 %; Neutrophils # (A) 2.7 k/uL (1.3-7.7); Neutrophils % (A) 43 %; Platelet Count 204 k/uL (150-450); RDW 15.7 % (11.5-15.5); WBC 6.2 k/uL (3.8-10.6)
[2024-06-18 13:58] LABS: INR 0.9 (<1.2); Partial Thromboplastin Time 24.3 sec (22.0-30.0); Prothrombin Time 9.9 sec (10.0-12.5)
[2024-06-18 13:59] LABS: NT-Pro-B-Type Natriuretic Pept 571 pg/mL
--- NOTE | 2024-06-18 13:59 | XR ---
EXAMINATION TYPE: XR chest 2V DATE OF EXAM: 06/18/2024 COMPARISON: 06/05/2024 HISTORY: 79-year-old male shortness of breath, difficulty breathing TECHNIQUE: AP and lateral views FINDINGS: Median sternotomy wires are present with post-CABG clips. Heart normal size. Patchy interstitial dens ities in the mid and lower lung similar to slightly increased from prior exam. Relative upper lung monica cencies. No pleural effusion. IMPRESSION: COPD with patchy and interstitial densities in the mid and lower lungs similar to slightly increased from prior. Correlate to exclude etiologies such as atypical pneumonia, interstitial pneumonitis, or early pneumonia. [facility], , 06/18/2024 1:57 PM
--- NOTE | 2024-06-18 14:06 | ED ---
SOB HPI - General Chief Complaint: Shortness of Breath Stated Complaint: SOB Time Seen by Provider: 06/18/24 13:10 Source: patient, EMS Mode of arrival: EMS - History of Present Illness Initial Comments: 79-year-old female with past medical history of COPD congestive heart failure who presents to the emergency department with shortness of breath. Patient was discharged from the hospital 11 days ago. States he has not felt any improvement in his breathing. This morning he woke up and had acute shortness of breath. EMS found him at his house with his 3 L on but was saturating in the 70s. He was ashen roach. They did place him on 6 L, then administered a breat shanna treatment. Patient has a productive cough. Found to have a low-grade fever upon arrival. He was recently hospitalized with COVID. He is also on Cipro after a bronc which showed stenotrophomonas. Patient denies any chest pain. Does admit to increase swelling in his lower extremities. He has been taking his diuretic without any missed doses. No other alleviating, precipitating or modifying factors - Related Data Home Medications Medication Instructions Recorded Confirmed Aspirin EC [Ecotrin Low Dose] 81 mg PO DAILY 06/15/22 06/18/24 Multivitamins, Thera [Multivitamin 1 tab PO DAILY 06/15/22 06/18/24 (formulary)] [place]-3/Dha/Epa/Fish Oil [Fish Oil 1 cap PO DAILY 06/15/22 06/18/24 1,000 mg Softgel] Pantoprazole [Protonix] 40 mg PO BID 06/15/22 06/18/24 Tamsulosin [Flomax] 0.4 mg PO HS 06/15/22 06/18/24 Tiotropium 2.5 Mcg/Puff [Spiriva 2 puff INHALATION RT-DAILY 06/15/22 06/18/24 Respimat 2.5 Mcg] Torsemide [Demadex] 10 mg PO DAILY 09/22/22 06/18/24 Fluticasone Propion/Salmeterol 1 puff INHALATION RT-BID 06/05/23 06/18/24 [Fluticasone-Salmeterol 100-50] Metoprolol Succinate (ER) [Toprol 25 mg PO DAILY 06/05/23 06/18/24 XL] Albuterol Sulfate [Albuterol 2 puff INHALATION RT-Q6H 05/07/24 06/18/24 Sulfate Hfa] Atorvastatin [Lipitor] 40 mg PO HS 05/07/24 06/18/24 Clopidogrel [Plavix] 75 mg PO DAILY 05/07/24 06/18/24 Montelukast [Singulair] 10 mg PO HS 05/07/24 06/18/24 predniSONE [Deltasone] 10 mg PO DAILY 06/03/24 06/18/24 Previous Rx's Medication Instructions Recorded glipiZIDE 5 mg PO BID #60 tablet 05/14/24 Ciprofloxacin HCl [Cipro] 500 mg PO Q12HR 5 Days #28 tab 06/07/24 Allergies Allergy/AdvReac Type Severity Reaction Status Date / Time No Known Allergies Allergy Verified 06/18/24 14:57 Review of Systems ROS Statement: Those systems with pertinent positive or pertinent negative responses have been documented in the HPI. ROS Other: All systems not noted in ROS Statement are negative. Past Medical History Past Medical History: Cancer, Heart Failure, COPD, Hyperlipidemia, Hypertension Additional Past Medical History / Comment(s): Non-hodgkins lymphoma 2021, coronary arteriosclerosis, anemia, pnemonia History of Any Multi-Drug Resistant Organisms: ESBL Date of last positivie culture/infection: 06/19/22 E.coli ESBL MDRO Source:: Bronch Wash Past Surgical History: Back Surgery, Coronary Bypass/CABG Additional Past Surgical History / Comment(s): AAA repair in 03/2022 with stent placed, right carotid endarterectomy, on flomax for not emptying bladder per patient, CABG in 2001 Past Anesthesia/Blood Transfusion Reactions: No Reported Reaction Past Psychological History: No Psychological Hx Reported Smoking Status: Current every day smoker, Light tobacco smoker Past Alcohol Use History: None Reported Past Drug Use History: None Reported - Past Family History Father Family Medical History: Unable to Obtain Additional Family Medical History / Comment(s): Does not know family history. General Exam Limitations: no limitations General appearance: alert, in distress Head exam: Present: atraumatic, normocephalic, normal inspection Eye exam: Present: normal appearance, PERRL, EOMI. Absent: scleral icterus, conjunctival injection, periorbital swelling ENT exam: Present: normal exam, mucous membranes moist Neck exam: Present: normal inspection. Absent: tenderness, meningismus, lymphadenopathy Respiratory exam: Present: respiratory distress, wheezes, decreased breath sounds Cardiovascular Exam: Present: normal rhythm, tachycardia GI/Abdominal exam: Present: soft, normal bowel sounds. Absent: distended, tenderness, guarding, rebound, rigid Course Vital Signs 06/18/24 06/18/24 06/18/24 13:07 13:32 15:19 Temperature 100 F H Pulse Rate 102 H 99 59 L Respiratory 40 H 28 H 20 Rate Blood Pressure 119/62 109/59 102/62 O2 Sat by Pulse 91 L 93 L 95 Oximetry 06/18/24 06/18/24 06/18/24 15:44 15:50 15:55 Temperature Pulse Rate 87 89 Respiratory Rate Blood Pressure O2 Sat by Pulse 94 L Oximetry 06/18/24 16:31 Temperature 98.2 F Pulse Rate 89 Respiratory 22 Rate Blood Pressure 95/58 O2 Sat by Pulse 96 Oximetry Medical Decision Making - Medical Decision Making Was pt. sent in by a medical professional or institution (, PA, [employer]IST, urgent care, hospital, or retirement...) When possible be specific @ -No Did you speak to anyone other than the patient for history (EMS, parent, family, police, friend...)? What history was obtained from this source @ -Spoke with EMS for history Did you review nursing and triage notes (agree or disagree)? Why? @ -I reviewed and agree with nursing and triage notes Were old charts reviewed (outside hosp., previous admission, EMS record, old EK G, old radiological studies, urgent care reports/EKG's, retirement records)? Report findings @ -I reviewed the patient's discharge summary from 10 days ago Differential Diagnosis (chest pain, altered mental status, abdominal pain women, abdominal pain men, vaginal bleeding, weakness, fever, dyspnea, syncope, headache, dizziness, GI bleed, back pain, seizure, CVA, palpatations, mental health, musculoskeletal)? @ -Differential Dyspnea: Coronary syndrome, arrhythmia, tamponade, asthma, COPD, pulmonary embolism, pneumonia, pneumothorax, pulmonary effusion, anaphylaxis, diabetic ketoacidosis, flailed chest, pulmonary contusion, diaphragmatic rupture, anemia, neuromuscular, this is not meant to be an all-inclusive list. EKG interpreted by me (3pts min.). @ -Yes and demonstrates sinus tachycardia with a rate of 101. ND interval 120. QRS 136. QTc of 437. Right bundle branch block. No acute ST segment elevation X-rays interpreted by me (1pt min.). @ -Yes and demonstrates worsening pneumonia CT interpreted by me (1pt min.). @ -None done U/S interpreted by me (1pt. min.). @ -None done What testing was considered but not performed or refused? (CT, X-rays, U/S, labs)? Why? @ -None What meds were considered but not given or refused? Why? @ -None Did you discuss the management of the patient with other professionals (professionals i.e. , PA, [employer] ARTIST, lab, RT, psych nurse, clinical social worker, managed care coordinator, teacher, fisheries officer, employment case manager)? Give summary @ -Spoke with sound physicians for admission Was smoking cessation discussed for >3mins.? @ -No Was critical care preformed (if so, how long)? @ -No Were there social determinants of health that impacted care today? How? (Ho melessness, low income, unemployed, alcoholism, drug addiction, transportation, low edu. Level, literacy, decrease access to med. care, assisted, rehab)? @ -No Was there de-escalation of care discussed even if they declined (Discuss DNR or withdrawal of care, Hospice)? DNR status @ -No What co-morbidities impacted this encounter? (DM, HTN, Smoking, COPD, CAD, Cancer, CVA, ARF, Chemo, Hep., AIDS, mental health diagnosis, sleep apnea, morbid obesity)? @ -COPD Was patient admitted / discharged? Hospital course, mention meds given and route, prescriptions, significant lab abnormalities, going to OR and other pertinent info. @ -Upon arrival patient seen and evaluated in room 1. Thorough history and physical exam was performed. Patient given breathing treatments. Labs are conducted. Chest x-ray is performed. Chest x-ray looks worse in comparison to last. I did start the patient on antibiotics. Informed him that I have to readmit him to the hospital with pulmonology consult Undiagnosed new problem with uncertain prognosis? @ -No Drug Therapy requiring intensive monitoring for toxicity (Heparin, Nitro, Insulin, Cardizem)? @ -No Were any procedures done? @ -No Diagnosis/symptom? @ -Acute on chronic respiratory failure, HCAP Acute, or Chronic, or Acute on Chronic? @ -Acute on chronic Uncomplicated (without systemic symptoms) or Complicated (systemic symptoms)? @ -Complicated Side effects of treatment? @ -No Exacerbation, Progression, or Severe Exacerbation? @ -Yes Poses a threat to life or bodily function? How? (Chest pain, USA, NM, pneumonia, PE, COPD, DKA, ARF, appy, cholecystitis, CVA, Diverticulitis, Homicidal, Suicidal, threat to staff... and all critical care pts) @ -Yes this patient has significant increased work of breathing - Lab Data Result diagrams: 06/30/24 06:17 06/30/24 06:17 Lab Results 06/18/24 06/18/24 06/18/24 Range/Units 13:27 13:27 13:27 WBC 6.2 (3.8-10.6) k/uL RBC 4.00 L (4.30-5.90) m/uL Hgb 12.4 L (13.0-17.5) gm/dL Hct 35.8 L (39.0-53.0) % MCV 89.6 (80.0-100.0) fL MCH 31.0 (25.0-35.0) pg MCHC 34.6 (31.0-37.0) g/dL RDW 15.7 H (11.5-15.5) % Plt Count 204 (150-450) k/uL MPV 9.2 Neutrophils % 43 % Lymphocytes % 46 % Monocytes % 6 % Eosinophils % 0 % Basophils % 0 % Neutrophils # 2.7 (1.3-7.7) k/uL Lymphocytes # 2.8 (1.0-4.8) k/uL Monocytes # 0.4 (0-1.0) k/uL Eosinophils # 0.0 (0-0.7) k/uL Basophils # 0.0 (0-0.2) k/uL PT 9.9 L (10.0-12.5) sec INR 0.9 (<1.2) APTT 24.3 (22.0-30.0) sec Sodium 139 (137-145) mmol/L Potassium 3.7 (3.5-5.1) mmol/L Chloride 100 (98-107) mmol/L Carbon Dioxide 33 H (22-30) mmol/L Anion Gap 6 mmol/L BUN 39 H (9-20) mg/dL Creatinine 1.91 H (0.66-1.25) mg/dL Est GFR (CKD-EPI)AfAm 37 (>60 ml/min/1.73 sqM) Est GFR (CKD-EPI)NonAf 32 (>60 ml/min/1.73 sqM) Glucose 131 H (74-99) mg/dL Lactic Ac Sepsis Rflx Plasma Lactic Acid Selvin (0.7-2.0) mmol/L Calcium 8.4 (8.4-10.2) mg/dL Total Bilirubin 0.7 (0.2-1.3) mg/dL AST 52 (17-59) U/L ALT 37 (4-49) U/L Alkaline Phosphatase 64 (38-126) U/L Troponin I (0.000-0.034) ng/mL NT-Pro-B Natriuret Pep 571 pg/mL Total Protein 5.7 L (6.3-8.2) g/dL Albumin 3.5 (3.5-5.0) g/dL 06/18/24 06/18/24 06/18/24 Range/Units 13:27 13:27 14:05 WBC (3.8-10.6) k/uL RBC (4.30-5.90) m/uL Hgb (13.0-17.5) gm/dL Hct (39.0-53.0) % MCV (80.0-100.0) fL MCH (25.0-35.0) pg MCHC (31.0-37.0) g/dL RDW (11.5-15.5) % Plt Count (150-450) k/uL MPV Neutrophils % % Lymphocytes % % Monocytes % % Eosinophils % % Basophils % % Neutrophils # (1.3-7.7) k/uL Lymphocytes # (1.0-4.8) k/uL Monocytes # (0-1.0) k/uL Eosinophils # (0-0.7) k/uL Basophils # (0-0.2) k/uL PT (10.0-12.5) sec INR (<1.2) APTT (22.0-30.0) sec Sodium (137-145) mmol/L Potassium (3.5-5.1) mmol/L Chloride (98-107) mmol/L Carbon Dioxide (22-30) mmol/L Anion Gap mmol/L BUN (9-20) mg/dL Creatinine (0.66-1.25) mg/dL Est GFR (CKD-EPI)AfAm (>60 ml/min/1.73 sqM) Est GFR (CKD-EPI)NonAf (>60 ml/min/1.73 sqM) Glucose (74-99) mg/dL Lactic Ac Sepsis Rflx Y Plasma Lactic Acid Selvin 2.9 H* (0.7-2.0) mmol/L Calcium (8.4-10.2) mg/dL Total Bilirubin (0.2-1.3) mg/dL AST (17-59) U/L ALT (4-49) U/L Alkaline Phosphatase (38-126) U/L Troponin I 0.054 H* (0.000-0.034) ng/mL NT-Pro-B Natriuret Pep pg/mL Total Protein (6.3-8.2) g/dL Albumin (3.5-5.0) g/dL Disposition Clinical Impression: COPD with exacerbation, Pneumonia Disposition: ADMITTED IP TO THIS HOSP Condition: Serious Is patient prescribed a controlled substance at d/c from ED?: No Time of Disposition: 14:17 Decision to Admit Reason: Admit from EC Decision Date: 06/18/24 Decision Time: 14:17
[2024-06-18] MEDS ORDERED: PNEUMONIA PROTOCOL UTILIZED 1 EACH MISC PO PRN (14:18)
[2024-06-18] MEDS ORDERED: ACETAMINOPHEN TAB 325 MG TAB PO PRN (14:18)
[2024-06-18] MEDS: ACETAMINOPHEN TAB 500 MG TAB PO STA (14:22)
[2024-06-18] MEDS: methylPREDNISolone SOD SUCCI 125 MG/2 ML VIAL IV STA (14:24)
[2024-06-18] MEDS: PIPERACILLIN-TAZOBACTAM 3.375 GM in SODIUM CHLORIDE 0.9% 100 ML IVPB STA (15:13)
[2024-06-18] MEDS: IPRATROPIUM-ALBUTEROL 3 ML NEB INHALATION SCH ×2 (15:43→19:56)
[2024-06-18] MEDS ORDERED: PIPERACILLIN-TAZOBACTAM 3.375 GM in SODIUM CHLORIDE 0.9% 100 ML IVPB SCH ×2 (16:00→21:00)
[2024-06-18] MEDS: AZITHROMYCIN 500 MG in SODIUM CHLORIDE 0.9% 250 ML IVPB STA (16:35)
[2024-06-18] MEDS ORDERED: LEVOFLOXACIN 750MG-D5W PMX 750 MG in DEXTROSE/WATER 1 150ML.BAG IVPB SCH (17:00)
[2024-06-18] MEDS ORDERED: DEXTROSE 50% SYRINGE 50 ML IVP PRN ×2 (18:06)
--- NOTE | 2024-06-18 18:09 | P.HPIM ---
History of Present Illness H&P Date: 06/18/24 79 year old M with PMH of systolic CHF with EF 40 to 45%, COPD on 3L home O2, chronic kidney disease, hypertension, hyperlipidemia, non-Hodgkins lymphoma, CAD with CABG, AAA with stent, carotid stenosis with endarterectomy presents to the ED for shortness of breath. Apparently his O2 sat was in the 70s when EMS arrived on his 3L NC. Recently admitted from 06/05-06/07 for similar complaints, COVID + at that time, treated with bronchodilators, Zosyn, SoluMedrol and discharged on a Prednisone taper and to complete a course of Ciprofloxacin. He recently underwent bronchoscopy with BAL with Dr. Cano on 05/13 with cultures resulting in Pseudomonas and ariel albicans. He was started on Ciprofloxacin at that time. He underwent repeat bronchoscopy with BAL with Dr. Cano on 06/03 which grew stenotrophomonas maltophilia. In the ED he underwent extensive evaluation. Tmax 100F, BP 119/62, HR 102, RR 40, 91% on 3L. CBC, Coag panel, CMP significant for RBC 4, Hg 12.4, Hct 35.8, PT 9.9, bicarb 33, BUN 39, Cr 1.91, glu 131. Lactic acid 2.9. Troponin 0.054. EKG sinus tachycardia with RBBB. CXR showed COPD with patchy interstitial densities increased from previous CXRs. Patient is admitted for further workup and management. General: non toxic, no distress, appears at stated age Derm: warm, dry Head: atraumatic, normocephalic, symmetric Eyes: EOMI, no lid lag, anicteric sclera Mouth: no lip lesion, mucus membranes moist Cardiovascular: S1S2 tachy, no murmur Lungs: Expiratory wheezing bilaterally, no rhonchi, no rales , no accessory muscle use Ext: no gross muscle atrophy, 1+ bilateral LE edema, no contractures Neuro: no focal neuro deficits Psych: Alert, oriented, appropriate affect Based on my assessment of this patient, this patient meets a high complexity level of care. Active conditions: Sepsis due to PNA: Possible post viral PNA. Immunocompromised given chronic ster oid use. Recent BAL culture with Pseudomonas and stenotrophomonas maltophilia. Start Zosyn 3.75g IV TID and Azithromycin 500 mg IV QD. Obtain BCx, Sputum Cx, Legionella Ag, Pro-judi, Mycoplasma Ab. Telemetry monitoring. Judicious use of fluids given h/o CHF. Pulmonary and ID on board. Acute on chronic COPD exacerbation: Symbicort 2 INH BID. DuoNeb Q4H scheduled. Singulair 10 mg PO HS. Elevated Troponin: Likely demand ischemia. No chest pain. Trend Trop/EKG to rule out ACS. ASA 81 mg PO QD. Lipitor 40 mg PO QHS. Plavix 75 mg PO QD. Metoprolol 25 mg PO QD. Diabetes mellitus: A1c 7.3. ISS. Accuchecks ACHS. Hypoglycemic precautions. Lactic acidosis: Related to sepsis. Trend until negative. BRITT on CKD: Start NS at 50 cc/hr. Likely prerenal from sepsis. Chronic conditions: Systolic CHF with EF 40-45%: Appears euvolemic. Hypertension: Metoprolol as above. Dyslipidemia: Lipitor as above. non-Hodgkins lymphoma CAD with CABG: ASA, Lipitor, Plavix, Metoprolol as above. AAA with stent: ASA, Lipitor, Plavix, Metoprolol as above. Carotid stenosis with endarterectomy: ASA, Lipitor, Plavix, as above. CODE STATUS: FULL CODE DVT Prophylaxis: Lovenox GI Prophylaxis: Protonix Designated medical POA if patient is not able to make medical decisions for themselves: I have reviewed the following managing consultant notes: ER note. I have reviewed the results of the following tests: As above I have ordered the following tests: As above I have discussed the care of this patient with the following independent historian: I have independently interpreted the following test below: EKG, CXR. I have discussed the management of this patient with the following physician: ER provider. Past Medical History Past Medical History: Cancer, Heart Failure, COPD, Hyperlipidemia, Hypertension Additional Past Medical History / Comment(s): Non-hodgkins lymphoma 2021, coronary arteriosclerosis, anemia, pnemonia History of Any Multi-Drug Resistant Organisms: ESBL Date of last positivie culture/infection: 06/19/22 E.coli ESBL MDRO Source:: Bronch Wash Past Surgical History: Back Surgery, Coronary Bypass/CABG Additional Past Surgical History / Comment(s): AAA repair in 03/2022 with stent placed, right carotid endarterectomy, on flomax for not emptying bladder per patient, CABG in 2001 Past Anesthesia/Blood Transfusion Reactions: No Reported Reaction Past Psychological History: No Psychological Hx Reported Smoking Status: Current every day smoker, Light tobacco smoker Past Alcohol Use History: None Reported Past Drug Use History: None Reported - Past Family History Father Family Medical History: Unable to Obtain Additional Family Medical History / Comment(s): Does not know family history. Medications and Allergies Home Medications Medication Instructions Recorded Confirmed Type Aspirin EC [Ecotrin Low Dose] 81 mg PO DAILY 06/15/22 06/18/24 History Multivitamins, Thera [Multivitamin 1 tab PO DAILY 06/15/22 06/18/24 History (formulary)] [place]-3/Dha/Epa/Fish Oil [Fish Oil 1 cap PO DAILY 06/15/22 06/18/24 History 1,000 mg Softgel] Pantoprazole [Protonix] 40 mg PO BID 06/15/22 06/18/24 History Tamsulosin [Flomax] 0.4 mg PO HS 06/15/22 06/18/24 History Tiotropium 2.5 Mcg/Puff [Spiriva 2 puff INHALATION RT-DAILY 06/15/22 06/18/24 History Respimat 2.5 Mcg] Torsemide [Demadex] 10 mg PO DAILY 09/22/22 06/18/24 History Fluticasone Propion/Salmeterol 1 puff INHALATION RT-BID 06/05/23 06/18/24 History [Fluticasone-Salmeterol 100-50] Metoprolol Succinate (ER) [Toprol 25 mg PO DAILY 06/05/23 06/18/24 History XL] Albuterol Sulfate [Albuterol 2 puff INHALATION RT-Q6H 05/07/24 06/18/24 History Sulfate Hfa] Atorvastatin [Lipitor] 40 mg PO HS 05/07/24 06/18/24 History Clopidogrel [Plavix] 75 mg PO DAILY 05/07/24 06/18/24 History Montelukast [Singulair] 10 mg PO HS 05/07/24 06/18/24 History glipiZIDE 5 mg PO BID #60 tablet 05/14/24 06/18/24 Rx predniSONE [Deltasone] 10 mg PO DAILY 06/03/24 06/18/24 History Ciprofloxacin HCl [Cipro] 500 mg PO Q12HR 5 Days #28 tab 06/07/24 06/18/24 Rx Allergies Allergy/AdvReac Type Severity Reaction Status Date / Time No Known Allergies Allergy Verified 06/18/24 14:57 Physical Exam Vitals: Vital Signs Temp Pulse Resp BP Pulse Ox 06/18/24 16:31 98.2 F 89 22 95/58 96 06/18/24 15:55 89 06/18/24 15:50 94 L 06/18/24 15:44 87 06/18/24 15:19 59 L 20 102/62 95 06/18/24 13:32 99 28 H 109/59 93 L 06/18/24 13:07 100 F H 102 H 40 H 119/62 91 L Intake and Output 06/18/24 06/18/24 06/18/24 06:59 14:59 22:59 Other: Weight 65.771 kg 65.771 kg Results CBC & Chem 7: 06/18/24 13:27 06/18/24 13:27 Labs: Abnormal Lab Results - Last 24 Hours (Table) 06/18/24 06/18/24 06/18/24 Range/Units 13:27 13:27 13:27 RBC 4.00 L (4.30-5.90) m/uL Hgb 12.4 L (13.0-17.5) gm/dL Hct 35.8 L (39.0-53.0) % RDW 15.7 H (11.5-15.5) % PT 9.9 L (10.0-12.5) sec Carbon Dioxide 33 H (22-30) mmol/L BUN 39 H (9-20) mg/dL Creatinine 1.91 H (0.66-1.25) mg/dL Glucose 131 H (74-99) mg/dL Plasma Lactic Acid Selvin (0.7-2.0) mmol/L Troponin I (0.000-0.034) ng/mL Total Protein 5.7 L (6.3-8.2) g/dL 06/18/24 06/18/24 Range/Units 13:27 13:27 RBC (4.30-5.90) m/uL Hgb (13.0-17.5) gm/dL Hct (39.0-53.0) % RDW (11.5-15.5) % PT (10.0-12.5) sec Carbon Dioxide (22-30) mmol/L BUN (9-20) mg/dL Creatinine (0.66-1.25) mg/dL Glucose (74-99) mg/dL Plasma Lactic Acid Selvin 2.9 H* (0.7-2.0) mmol/L Troponin I 0.054 H* (0.000-0.034) ng/mL Total Protein (6.3-8.2) g/dL Thrombosis Risk Factor Assmnt - Choose All That Apply Any of the Below Risk Factors Present?: Yes Each Factor Represents 1 point: Abnormal pulmonary function (COPD), Heart failure (<1month) Thrombosis Risk Factor Assessment Total Risk Factor Score: 2 Thrombosis Risk Factor Assessment Level: Low Risk
[2024-06-18] MEDS: PIPERACILLIN-TAZOBACTAM 3.375 GM in SODIUM CHLORIDE 0.9% 100 ML IVPB SCH (18:16)
[2024-06-18] MEDS: SYMBICORT 160-4.5 MCG INHALER INHALATION SCH (19:42)
[2024-06-18] MEDS: TAMSULOSIN 0.4 MG CAP.ER.24H PO SCH (20:33)
[2024-06-18] MEDS: MONTELUKAST 10 MG TAB PO SCH (20:33)
[2024-06-18] MEDS: PANTOPRAZOLE 40 MG TABLET PO SCH (20:33)
[2024-06-18] MEDS: ATORVASTATIN 40 MG TAB PO SCH (20:33)
[2024-06-18] MEDS: INSULIN ASPART (NovoLOG) 100 UNIT/ML VIAL SQ SCH (20:34)
[2024-06-18] MEDS: SODIUM CHLORIDE 0.9% 1,000 ML IV SCH (20:36)
--- NOTE | 2024-06-18 23:09 | P.CONS ---
History of Present Illness - Reason for Consult Consult date: 06/18/24 Pneumonia Requesting physician: Candy Ricks - Chief Complaint Increasing shortness of breath and cough x days - History of Present Illness Patient is a 79-year-old male with a past medical history significant for non-Hodgkin lymphoma COPD hypertension hyperlipidemia heart failure recently diagnosed with a COVID-19 about 10 days ago presenting to the hospital for evaluation of increasing shortness of breath patient symptoms started the day of presentation to the hospital and the patient was hypoxic with O2 sats of 70% on 3 L nasal oxygen patient also complaining of cough moderate intensity and has been bringing up some purulent sputum patient on presentation to the hospital did have low-grade fever of 100 F patient was tachycardic mildly hypotensive and did have white count of 6.2 BUN/creatinine has been mildly elevated did have elevated lactic acid liver enzymes are normal patient did have a chest x-ray COPD with patchy interstitial density in the mid and lower lungs similar to slightly increased from prior concerning for pneumonia patient was started on Zithromax and Levaquin infectious he was consulted for further management of antibiotic therapy patient family did mention he has been on oral Cipro per his pulmonary over the last 6 weeks and review of the culture data did show he did grew initially Pseudomonas aeruginosa in beginning of May followed by Stenotrophomonas maltophilia Review of Systems Positive point and negatives has been mentioned in the HPI, complete review of systems was performed and all other systems are negative Past Medical History Past Medical History: Cancer, Heart Failure, COPD, Hyperlipidemia, Hypertension Additional Past Medical History / Comment(s): Non-hodgkins lymphoma 2021, coronary arteriosclerosis, anemia, pnemonia History of Any Multi-Drug Resistant Organisms: ESBL Year Discovered:: 06/19/22 E.coli ESBL MDRO Source:: Bronch Wash Past Surgical History: Back Surgery, Coronary Bypass/CABG Additional Past Surgical History / Comment(s): AAA repair in 03/2022 with stent placed, right carotid endarterectomy, on flomax for not emptying bladder per patient, CABG in 2001 Past Anesthesia/Blood Transfusion Reactions: No Reported Reaction Past Psychological History: No Psychological Hx Reported Smoking Status: Current every day smoker, Light tobacco smoker Past Alcohol Use History: None Reported Past Drug Use History: None Reported - Past Family History Father Family Medical History: Unable to Obtain Additional Family Medical History / Comment(s): Does not know family history. Medications and Allergies Home Medications Medication Instructions Recorded Confirmed Type Aspirin EC [Ecotrin Low Dose] 81 mg PO DAILY 06/15/22 06/18/24 History Multivitamins, Thera [Multivitamin 1 tab PO DAILY 06/15/22 06/18/24 History (formulary)] [place]-3/Dha/Epa/Fish Oil [Fish Oil 1 cap PO DAILY 06/15/22 06/18/24 History 1,000 mg Softgel] Pantoprazole [Protonix] 40 mg PO BID 06/15/22 06/18/24 History Tamsulosin [Flomax] 0.4 mg PO HS 06/15/22 06/18/24 History Tiotropium 2.5 Mcg/Puff [Spiriva 2 puff INHALATION RT-DAILY 06/15/22 06/18/24 History Respimat 2.5 Mcg] Torsemide [Demadex] 10 mg PO DAILY 09/22/22 06/18/24 History Fluticasone Propion/Salmeterol 1 puff INHALATION RT-BID 06/05/23 06/18/24 History [Fluticasone-Salmeterol 100-50] Metoprolol Succinate (ER) [Toprol 25 mg PO DAILY 06/05/23 06/18/24 History XL] Albuterol Sulfate [Albuterol 2 puff INHALATION RT-Q6H 05/07/24 06/18/24 History Sulfate Hfa] Atorvastatin [Lipitor] 40 mg PO HS 05/07/24 06/18/24 History Clopidogrel [Plavix] 75 mg PO DAILY 05/07/24 06/18/24 History Montelukast [Singulair] 10 mg PO HS 05/07/24 06/18/24 History glipiZIDE 5 mg PO BID #60 tablet 05/14/24 06/18/24 Rx predniSONE [Deltasone] 10 mg PO DAILY 06/03/24 06/18/24 History Ciprofloxacin HCl [Cipro] 500 mg PO Q12HR 5 Days #28 tab 06/07/24 06/18/24 Rx Allergies Allergy/AdvReac Type Severity Reaction Status Date / Time No Known Allergies Allergy Verified 06/18/24 14:57 Physical Exam Vitals: Vital Signs Temp Pulse Resp BP Pulse Ox 06/18/24 13:32 99 28 H 109/59 93 L 06/18/24 13:07 100 F H 102 H 40 H 119/62 91 L Intake and Output 06/18/24 06/18/24 06/18/24 06:59 14:59 22:59 Other: Weight 65.771 kg GENERAL DESCRIPTION: Elderly male lying in bed, no distress. No tachypnea or accessory muscle of respiration use. HEENT: Shows Pallor , no scleral icterus. Oral mucous membrane is dry. NECK: Trachea central, no thyromegaly. LUNGS: Unlabored breathing. Coarse breath sounds bilaterally HEART: S1, S2, regular rate and rhythm. No loud murmur ABDOMEN: Soft, no tenderness , guarding or rigidity, no organomegaly EXTREMITIES: No edema of feet. SKIN: No rash, no masses palpable. NEUROLOGICAL: The patient is awake, alert, oriented x3, mood and affect normal. Results CBC & Chem 7: 06/18/24 13:27 06/18/24 13: Labs: Abnormal Lab Results - Last 24 Hours (Table) 06/18/24 06/18/24 06/18/24 Range/Units 13:27 13:27 13:27 RBC 4.00 L (4.30-5.90) m/uL Hgb 12.4 L (13.0-17.5) gm/dL Hct 35.8 L (39.0-53.0) % RDW 15.7 H (11.5-15.5) % PT 9.9 L (10.0-12.5) sec Carbon Dioxide 33 H (22-30) mmol/L BUN 39 H (9-20) mg/dL Creatinine 1.91 H (0.66-1.25) mg/dL Glucose 131 H (74-99) mg/dL Plasma Lactic Acid Selvin (0.7-2.0) mmol/L Troponin I (0.000-0.034) ng/mL Total Protein 5.7 L (6.3-8.2) g/dL 06/18/24 06/18/24 Range/Units 13:27 13:27 RBC (4.30-5.90) m/uL Hgb (13.0-17.5) gm/dL Hct (39.0-53.0) % RDW (11.5-15.5) % PT (10.0-12.5) sec Carbon Dioxide (22-30) mmol/L BUN (9-20) mg/dL Creatinine (0.66-1.25) mg/dL Glucose (74-99) mg/dL Plasma Lactic Acid Selvin 2.9 H* (0.7-2.0) mmol/L Troponin I 0.054 H* (0.000-0.034) ng/mL Total Protein (6.3-8.2) g/dL Assessment and Plan (1) Pneumonia Current Visit: Yes Status: Acute Code(s): J18.9 - PNEUMONIA, UNSPECIFIED ORGANISM SNOMED Code(s): 286827077 (2) Sepsis Current Visit: No Status: Acute Code(s): A41.9 - SEPSIS, UNSPECIFIED ORGANISM SNOMED Code(s): 45270556 Plan: 1patient presented to hospital with sepsis in this patient who did have fever tachycardia mild hypotension source is likely pneumonia in this patient who recently did have a COVID-19 will need to cover for resistant gram negative to be the likely etiology and the patient recently grew Pseudomonas in his BAL culture 2-sputum culture-we will check inflammatory markers 3-discontinue Levaquin and start the patient on Zosyn 3.375 g every 8 hours Care discussed with the family and the admitting physician on the floor we will follow on clinical condition and cultures to further adjust medication if needed Thank you for this consultation we will follow the patient along with you Dictation was produced using [employer] dictation software. please excuse any grammatical, word or spelling errors. Time with Patient: Greater than 30
[2024-06-19 06:20] LABS: Glucose,Whole Blood 299 mg/dL (70-110)
[2024-06-19] MEDS: AZITHROMYCIN 500 MG in SODIUM CHLORIDE 0.9% 250 ML IVPB SCH (07:47)
[2024-06-19] MEDS: METOPROLOL SUCCINATE (ER) 25 MG TAB.ER.24H PO SCH (08:51)
[2024-06-19] MEDS: CLOPIDOGREL 75 MG TAB PO SCH (08:51)
[2024-06-19] MEDS: ENOXAPARIN 40 MG/0.4 ML SYRINGE SQ SCH (08:51)
[2024-06-19] MEDS: ASPIRIN 81 MG PO SCH (08:51)
--- NOTE | 2024-06-19 08:54 | XR ---
EXAMINATION TYPE: XR chest 1V portable DATE OF EXAM: 06/19/2024 Comparison: 06/18/2024 Clinical History: 79-year-old male pneumonia Findings: Heart normal size. Patchy interstitial opacities bilaterally are similar to minimally increased. Medi an sternotomy wires and post-CABG clips. No pleural effusion. Mild hyperinflation. Impression: Patchy interstitial infiltrates similar to slightly increased. Atypical and COVID pneumonias are in t he differential. Background COPD. [facility], , 06/19/2024 8:52 AM
[2024-06-19] MEDS ORDERED: TORSEMIDE 20 MG TAB PO SCH (09:00)
[2024-06-19] MEDS ORDERED: AZITHROMYCIN 500 MG in SODIUM CHLORIDE 0.9% 250 ML IVPB SCH (09:00)
--- NOTE | 2024-06-19 09:55 | CDI ---
Documentation Clarification Form Date: From: Tayla Adair RN CCDS Phone: [phone] Admit Date: 06/18/2024 02:19:00 PM Patient Name: Dl Calvin Visit Number: [id number] Discharge Date: ATTENTION: The Clinical Documentation Specialists (CDI) and [facility] Coding Staff appreciate your assistance in clarifying documentation. Please respond to the clarification below the line at the bottom and electronically sign. The CDI & [facility] Coding staff will review the response and follow-up if needed. Please note: Queries are made part of the Legal Health Record. If you have any questions, please contact the author of this message via ITS. Doctor/Provider: Candy Ricks MD: Your patient has troponin level(s) of: 0.054. 0.052, 0.042 on 06/18. Please clarify if there is an additional diagnosis and/or clinical significance related to this value. Patient history/risk factors: 79-year-old male with a history of COPD on home oxygen, CKD, HTN, non-Hodgkins Lymphoma and CAD, who presents with SOB Clinical indicators: 06/18 Triage VS: 119/62, 100.0, 102, 40, 91% 3 liters nasal cannula 06/18 H&P, Active Conditions: "Elevated Troponin: Likely demand ischemia. No chest pain." 06/18 EKG: Sinus Tachycardia, RBBB, Left anterior fascicular block, possible anterior myocardial infarction of indeterminate age 10/10 proBNP: 571 Lactic Acidosis: 2.9, 1.2 06/18 Chest X Ray, Impression: "COPD with patchy and interstitial densities in the mid and lower lungs similar to slightly increased from prior. Correlate to exclude etiologies such as atypical pneumonia, interstitial pneumonitis, or early pneumonia." Treatment: Monitor Troponin, EKG, Chest X Ray Zosyn 3.375gram IV M2yiwld start 06/18 Aspirin 81mg chew daily start 06/19 Plavix 75mg oral daily start 06/19 Metoprolol Succinate 25mg oral daily start 06/19 Azithromycin 500mg IV once 06/18, 06/19 Is there an additional diagnosis and/or clinical significance related to the above lab result/information: [ ] Type 2 [place] due to (specify cause ____) [x ] Non-ischemic with acute myocardial injury [ ] No additional diagnosis/Not clinically significant [ ] Other, please specify [ ] Unable to determine Reference: [employer] Fourth [place] Definition of Myocardial Infarction Elevated Cardiac Troponin >99th percentile with Troponin rise and/or fall With Acute ischemia o Acute Myocardial Infarction o Atherosclerosis thrombosis Type I W[place] o Oxygen supply and demand imbalance Type II W[place] (Please indicate etiology) Without acute ischemia o Acute Myocardial Injury MTDD
[2024-06-19 11:35] LABS: Glucose,Whole Blood 129 mg/dL (70-110)
[2024-06-19] MEDS: predniSONE 20 MG TAB PO SCH (11:54)
--- NOTE | 2024-06-19 11:57 | P.CNPUL ---
History of Present Illness Consult date: 06/19/24 Requesting physician: Candy Ricks Reason for consult: COPD, hypoxemia Chief complaint: Shortness of breath, cough, congestion History of present illness: This is a very pleasant 79-year-old male patient who has a history of chronic and ongoing tobacco dependence, severe COPD maintained on a combination of Wixela and Spiriva on an outpatient basis. His previous pulmonary function test from 2020 has shown as an FEV1 of 39% of predicted at baseline. He is also oxygen dependent and utilizes oxygen on and off as requirement of oxygen becomes more needed whenever he gets an acute exacerbation. He has class III/IV chronic exertional dyspnea. He is also being monitored for a right upper lobe pulmonary nodule which is measuring 1.1 cm in size there was noted to be PET avid. Based on his advanced COPD and limited performance status he was recommended continue surveillance of this pulmonary nodule and decide at the later stage if SBRT would be of any benefit for this patient. He is also known to have coronary artery disease, has undergone previous coronary bypass surgery. He has also undergone previous stenting to SVG to RCA. Other comorbidities include hypertension, hyperlipidemia, previous history of non-Hodgkin's lymphoma treated with rituximab and the patient has carotid artery disease, abdominal aortic aneurysm with previous endovascular stent grafting and the patient has a aorto by iliac endovascular graft along with previous history of a upper GI bleed related to a duodenal ulcer which resulted into significant blood loss anemia. He has had frequent readmissions to the hospital. Recently discharged on June 07, 2024. His most recent bronchoscopy was performed on 06/03/2024 and was found to have Stenotrophomonas maltophilia and was treated with Ciprof loxacin. He came back to the emergency room yesterday 06/18/2024 with complaints of increasing shortness of breath, cough and congestion. Chest x-ray reveals interstitial opacities bilaterally. No pleural effusion. Mild hyperinflation. White count 6.2. Hemoglobin 12.4. Platelets 204. Sodium 139. Potassium 3.7. Bicarb 33. BUN 39. Creatinine 1.91. Glucose 131. Troponin 0.043. proBNP 571. Procalcitonin 0.29. He has been initiated on DuoNeb inhalations, Symbicort, prednisone taper. Antibiotics in the form of Zosyn. Lovenox for DVT prophylaxis. He is seen in consultation on the regular medical floor. Currently sitting up in bed. He is dyspneic with conversation. Dyspneic with minimal exertion. Admits to still smoking 2 to 3 cigarettes a day. Currently maintaining O2 saturations in the 90s on 3 L/min per nasal cannula. He has been afebrile. Hemodynamically stable. Review of Systems REVIEW OF SYSTEMS: CONSTITUTIONAL: Denies any recent significant weight loss or weight gain. EYES: Denies change in vision. EARS, NOSE, MOUTH, THROAT: Denies headaches, denies sore throat. CARDIOVASCULAR: Denies chest pain, palpitations or syncopal episodes. RESPIRATORY: Positive for shortness of breath, cough, congestion no hemoptysis. GASTROINTESTINAL: Denies change in appetite, denies abdominal pain GENITOURINARY: Denies hematuria, denies infections. MUSKULOSKELETAL: Denies pain, denies swelling. INTEGUMENTARY: Denies rash, denies eczema. NEUROLOGICAL: Denies recent memory loss, no recent seizure activity. PSYCHIATRIC: Denies anxiety, denies depression. HEMATOLOGIC/LYMPHATIC: Denies anemia, denies enlarged lymph nodes. Past Medical History Past Medical History: Cancer, Heart Failure, COPD, Hyperlipidemia, Hypertension Additional Past Medical History / Comment(s): Non-hodgkins lymphoma 2021, coronary arteriosclerosis, anemia, pnemonia History of Any Multi-Drug Resistant Organisms: ESBL Date of last positivie culture/infection: 06/19/22 E.coli ESBL MDRO Source:: Bronch Wash Past Surgical History: Back Surgery, Coronary Bypass/CABG Additional Past Surgical History / Comment(s): AAA repair in 03/2022 with stent placed, right carotid endarterectomy, on flomax for not emptying bladder per patient, CABG in 2001 Past Anesthesia/Blood Transfusion Reactions: No Reported Reaction Past Psychological History: No Psychological Hx Reported Smoking Status: Current every day smoker, Light tobacco smoker Past Alcohol Use History: None Reported Past Drug Use History: None Reported - Past Family History Father Family Medical History: Unable to Obtain Additional Family Medical History / Comment(s): Does not know family history. Medications and Allergies Home Medications Medication Instructions Recorded Confirmed Type Aspirin EC [Ecotrin Low Dose] 81 mg PO DAILY 06/15/22 06/18/24 History Multivitamins, Thera [Multivitamin 1 tab PO DAILY 06/15/22 06/18/24 History (formulary)] Dimmitt-3/Dha/Epa/Fish Oil [Fish Oil 1 cap PO DAILY 06/15/22 06/18/24 History 1,000 mg Softgel] Pantoprazole [Protonix] 40 mg PO BID 06/15/22 06/18/24 History Tamsulosin [Flomax] 0.4 mg PO HS 06/15/22 06/18/24 History Tiotropium 2.5 Mcg/Puff [Spiriva 2 puff INHALATION RT-DAILY 06/15/22 06/18/24 H istory Respimat 2.5 Mcg] Torsemide [Demadex] 10 mg PO DAILY 09/22/22 06/18/24 History Fluticasone Propion/Salmeterol 1 puff INHALATION RT-BID 06/05/23 06/18/24 History [Fluticasone-Salmeterol 100-50] Metoprolol Succinate (ER) [Toprol 25 mg PO DAILY 06/05/23 06/18/24 History XL] Albuterol Sulfate [Albuterol 2 puff INHALATION RT-Q6H 05/07/24 06/18/24 History Sulfate Hfa] Atorvastatin [Lipitor] 40 mg PO HS 05/07/24 06/18/24 History Clopidogrel [Plavix] 75 mg PO DAILY 05/07/24 06/18/24 History Montelukast [Singulair] 10 mg PO HS 05/07/24 06/18/24 History glipiZIDE 5 mg PO BID #60 tablet 05/14/24 06/18/24 Rx predniSONE [Deltasone] 10 mg PO DAILY 06/03/24 06/18/24 History Ciprofloxacin HCl [Cipro] 500 mg PO Q12HR 5 Days #28 tab 06/07/24 06/18/24 Rx Allergies Allergy/AdvReac Type Severity Reaction Status Date / Time No Known Allergies Allergy Verified 06/18/24 14:57 Physical Exam Vitals: Vital Signs Temp Pulse Pulse Resp BP BP Pulse Ox 06/19/24 11:35 82 06/19/24 08:13 88 06/19/24 08:04 94 L 06/19/24 08:01 84 06/19/24 07:50 97.5 F L 75 18 117/65 91 L 06/19/24 01:22 97.6 F 80 18 104/67 92 L 06/18/24 20:36 81 16 06/18/24 20:00 98.0 F 81 16 97/60 95 06/18/24 19:54 90 06/18/24 19:45 89 06/18/24 16:31 98.2 F 89 22 95/58 96 06/18/24 15:55 89 06/18/24 15:50 94 L 06/18/24 15:44 87 06/18/24 15:19 59 L 20 102/62 95 06/18/24 13:32 99 28 H 109/59 93 L 06/18/24 13:07 100 F H 102 H 40 H 119/62 91 L Intake and Output 06/18/24 06/19/24 06/19/24 22:59 06:59 14:59 Intake Total 1130 Output Total 500 Balance 630 Intake: Intake, IV Titration 650 Amount Piperacillin-Tazobactam 3 100 .375 gm In Sodium Chloride 0.9% 100 ml @ 25 mls/hr IVPB Q8HR [facility] Rx# :[id number] Sodium Chloride 0.9% 1, 550 000 ml @ 50 mls/hr IV . Q20H [facility] Rx#:[id number] Oral 480 Output: Urine 500 Other: Voiding Method Toilet # Voids 2 # Bowel Movements 1 Weight 65.771 kg GENERAL EXAM: Alert, pleasant 79-year-old male patient, on 3 L nasal cannula, fairly comfortable in no apparent distress. HEAD: Normocephalic. EYES: Normal reaction of pupils, equal size. NOSE: Clear with pink turbinates. THROAT: No erythema or exudates. NECK: No masses, no JVD. CHEST: No chest wall deformity. LUNGS: Equal air entry with bilateral wheezing, scattered rhonchi, diminished. CVS: S1 and S2 normal with no audible murmur, regular rhythm. ABDOMEN: No hepatosplenomegaly, normal bowel sounds, no guarding or rigidity. SPINE: No scoliosis or deformity SKIN: No rashes CENTRAL NERVOUS SYSTEM: No focal deficits, tone is normal in all 4 extremities. EXTREMITIES: There is no peripheral edema. No clubbing, no cyanosis. Peripheral pulses are intact. Results - Laboratory Findings CBC and BMP: 06/18/24 13:27 06/18/24 13:27 PT/INR, D-dimer PT 9.9 sec (10.0-12.5) L 06/18/24 13:27 INR 0.9 (<1.2) 06/18/24 13:27 Abnormal lab findings: Abnormal Labs 06/18/24 06/18/24 06/18/24 13:27 13:27 13:27 RBC 4.00 L Hgb 12.4 L Hct 35.8 L RDW 15.7 H PT 9.9 L Carbon Dioxide 33 H BUN 39 H Creatinine 1.91 H Glucose 131 H POC Glucose (mg/dL) Plasma Lactic Acid Selvin Troponin I Total Protein 5.7 L 06/18/24 06/18/24 06/18/24 13:27 13:27 17:14 RBC Hgb Hct RDW PT Carbon Dioxide BUN Creatinine Glucose POC Glucose (mg/dL) Plasma Lactic Acid Selvin 2.9 H* Troponin I 0.054 H* 0.052 H* Total Protein 06/18/24 06/19/24 06/19/24 20:18 06:19 11:34 RBC Hgb Hct RDW PT Carbon Dioxide BUN Creatinine Glucose POC Glucose (mg/dL) 299 H 129 H Plasma Lactic Acid Selvin Troponin I 0.043 H* Total Protein - Diagnostic Findings Chest x-ray: image reviewed Assessment and Plan Assessment: Acute on chronic hypoxic respiratory failure secondary to an acute exacerbation of COPD. Procalcitonin negative. Frequent admissions for COPD exacerbation. Recent discharge on 06/07/2024. Recent bronchoscopy of 06/03/2024 revealed Stenotrophomonas maltophilia, treated with ciprofloxacin Chronic and ongoing tobacco dependence Oxygen dependent chronic obstructive pulmonary disease with an FEV1 value 39% of predicted Chronic tobacco dependence of greater than 60 years Right upper lobe PET avid pulmonary nodule which is being monitored on outpatient basis History of non-Hodgkin's lymphoma Chronic stage III kidney disease Coronary disease with previous coronary artery bypass surgery in 2001 History of abdominal aortic aneurysm status post stent placement in March 2022 Carotid stenosis status post endarterectomy History of ESBL E. coli and bronchial wash in 2021 Hyperlipidemia Hypertension Plan: The patient was seen and evaluated Chest x-ray, labs and medications reviewed Continue DuoNeb inhalations, Symbicort, prednisone Continue antibiotics for now Procalcitonin negative Recent stenotrophomonas infection Lovenox for DVT prophylaxis Educated regarding the importance of complete smoking cessation We will continue to follow and make further recommendations based on his clinical status I have personally seen and examined the patient, performed the documentation and the assessment and plan as written. Number of minutes spent on the visit: 20.
--- NOTE | 2024-06-19 13:03 | P.PN ---
Subjective Progress Note Date: 06/19/24 79 year old M with PMH of systolic CHF with EF 40 to 45%, COPD on 3L home O2, chronic kidney disease, hypertension, hyperlipidemia, non-Hodgkins lymphoma, CAD with CABG, AAA with stent, carotid stenosis with endarterectomy presents to the ED for shortness of breath. Apparently his O2 sat was in the 70s when EMS arrived on his 3L NC. Recently admitted from 06/05-06/07 for similar complaints, COVID + at that time, treated with bronchodilators, Zosyn, SoluMedrol and discharged on a Prednisone taper and to complete a course of Ciprofloxacin. He recently underwent bronchoscopy with BAL with Dr. Cano on 05/13 with cultures resulting in Pseudomonas and areil albicans. He was started on Ciprofloxacin at that time. He underwent repeat bronchoscopy with BAL with Dr. Cano on 06/03 which grew stenotrophomonas maltophilia. In the ED he underwent extensive evaluation. Tmax 100F, BP 119/62, HR 102, RR 40, 91% on 3L. CBC, Coag panel, CMP significant for RBC 4, Hg 12.4, Hct 35.8, PT 9.9, bicarb 33, BUN 39, Cr 1.91, glu 131. Lactic acid 2.9. Troponin 0.054. EKG sinus tachycardia with RBBB. CXR showed COPD with patchy interstitial densities increased from previous CXRs. Patient is admitted for further workup and management. 06/19 Patient was seen and examined. Doing better. Back to 3L NC. ID consulted, started on Zosyn and Azithromycin. Procal is 0.29. Troponin 0.052, 0.043. CXR shows similar patchy interstitial densities bilaterally. Pulmonary recommends discontinuing Azithromycin. General: non toxic, no distress, appears at stated age Derm: warm, dry Head: atraumatic, normocephalic, symmetric Eyes: EOMI, no lid lag, anicteric sclera Mouth: no lip lesion, mucus membranes moist Cardiovascular: S1S2 reg, no murmur Lungs: Decreased BS bilaterally, no rhonchi, no rales , no accessory muscle use Ext: no gross muscle atrophy, 1+ bilateral LE edema, no contractures Neuro: no focal neuro deficits Psych: Alert, oriented, appropriate affect Based on my assessment of this patient, this patient meets a high complexity level of care. Active conditions: Sepsis due to PNA: Possible post viral PNA. Immunocompromised given chronic steroid use. Recent BAL culture with Pseudomonas and stenotrophomonas maltophilia. Continue Zosyn 3.75g IV TID (D2). Pro-judi negative, Azithromycin discontinued. Follow BCx, Sputum Cx, Legionella Ag, Mycoplasma Ab. Telemetry monitoring. Judicious use of fluids given h/o CHF. Pulmonary and ID on board. Acute on chronic COPD exacerbation: Symbicort 2 INH BID. DuoNeb Q4H scheduled. Singulair 10 mg PO HS. Elevated Troponin: Likely demand ischemia. Flat. ACS ruled out. No chest pain. ASA 81 mg PO QD. Lipitor 40 mg PO QHS. Plavix 75 mg PO QD. Metoprolol 25 mg PO QD. Diabetes mellitus: A1c 7.3. ISS. Accuchecks ACHS. Hypoglycemic precautions. Lactic acidosis: Related to sepsis. Trend until negative. BRITT on CKD: Start NS at 50 cc/hr. Likely prerenal from sepsis. Chronic conditions: Systolic CHF with EF 40-45%: Appears euvolemic. Hypertension: Metoprolol as above. Dyslipidemia: Lipitor as above. non-Hodgkins lymphoma CAD with CABG: ASA, Lipitor, Plavix, Metoprolol as above. AAA with stent: ASA, Lipitor, Plavix, Metoprolol as above. Carotid stenosis with endarterectomy: ASA, Lipitor, Plavix, as above. CODE STATUS: FULL CODE DVT Prophylaxis: Lovenox GI Prophylaxis: Protonix Designated medical POA if patient is not able to make medical decisions for themselves: I have reviewed the following advertising consultant notes: Pulm, ID note. I have reviewed the results of the following tests: Procal, Trop x 2 I have ordered the following tests: Pending: BCx. Sputum Cx. Legionella Ag. I have discussed the care of this patient with the following independent historian: Son. I have independently interpreted the following test below: CXR. I have discussed the management of this patient with the following physician: Objective - Vital Signs Vital signs: Vital Signs Temp 97.5 F L 06/19/24 07:50 Pulse 85 06/19/24 11:45 Resp 18 06/19/24 07:50 BP 117/65 06/19/24 07:50 Pulse Ox 94 L 06/19/24 08:04 FiO2 Intake & Output 06/18/24 06/19/24 06/19/24 18:59 06:59 18:59 Intake Total 1130 Output Total 500 Balance 630 Weight 65.771 kg Intake: Intake, IV Titration 650 Amount Piperacillin-Tazobactam 3 100 .375 gm In Sodium Chloride 0.9% 100 ml @ 25 mls/hr IVPB Q8HR [facility] Rx# :[id number] Sodium Chloride 0.9% 1, 550 000 ml @ 50 mls/hr IV . Q20H [facility] Rx#:[id number] Oral 480 Output: Urine 500 Other: Voiding Method Toilet # Voids 2 # Bowel Movements 1 - Labs CBC & Chem 7: 06/18/24 13:27 06/18/24 13:27 Labs: Abnormal Lab Results - Last 24 Hours (Table) 06/18/24 06/18/24 06/18/24 Range/Units 13:27 13:27 13:27 RBC 4.00 L (4.30-5.90) m/uL Hgb 12.4 L (13.0-17.5) gm/dL Hct 35.8 L (39.0-53.0) % RDW 15.7 H (11.5-15.5) % PT 9.9 L (10.0-12.5) sec Carbon Dioxide 33 H (22-30) mmol/L BUN 39 H (9-20) mg/dL Creatinine 1.91 H (0.66-1.25) mg/dL Glucose 131 H (74-99) mg/dL POC Glucose (mg/dL) (70-110) mg/dL Plasma Lactic Acid Selvin (0.7-2.0) mmol/L Troponin I (0.000-0.034) ng/mL Total Protein 5.7 L (6.3-8.2) g/dL 06/18/24 06/18/24 06/18/24 Range/Units 13:27 13:27 17:14 RBC (4.30-5.90) m/uL Hgb (13.0-17.5) gm/dL Hct (39.0-53.0) % RDW (11.5-15.5) % PT (10.0-12.5) sec Carbon Dioxide (22-30) mmol/L BUN (9-20) mg/dL Creatinine (0.66-1.25) mg/dL Glucose (74-99) mg/dL POC Glucose (mg/dL) (70-110) mg/dL Plasma Lactic Acid Selvin 2.9 H* (0.7-2.0) mmol/L Troponin I 0.054 H* 0.052 H* (0.000-0.034) ng/mL Total Protein (6.3-8.2) g/dL 06/18/24 06/19/24 06/19/24 Range/Units 20:18 06:19 11:34 RBC (4.30-5.90) m/uL Hgb (13.0-17.5) gm/dL Hct (39.0-53.0) % RDW (11.5-15.5) % PT (10.0-12.5) sec Carbon Dioxide (22-30) mmol/L BUN (9-20) mg/dL Creatinine (0.66-1.25) mg/dL Glucose (74-99) mg/dL POC Glucose (mg/dL) 299 H 129 H (70-110) mg/dL Plasma Lactic Acid Selvin (0.7-2.0) mmol/L Troponin I 0.043 H* (0.000-0.034) ng/mL Total Protein (6.3-8.2) g/dL
--- NOTE | 2024-06-19 15:30 | P.PN ---
Subjective Progress Note Date: 06/19/24 Principal diagnosis: Reason for follow-up is pneumonia Patient is a 79-year-old male with a past medical history significant for non-Hodgkin lymphoma COPD hypertension hyperlipidemia heart failure recently diagnosed with a COVID-19 presented to hospital for evaluation of increasing shortness of breath and cough sputum production did have patient evaluated on the chest x-ray concerning for pneumonia. On today's evaluation that is 06/19/2024, Patient is afebrile this morning patient denies having any chest pain breathing slightly comfortably continue to have a cough and bring up some sputum no nausea vomiting no abdominal pain no diarrhea currently on a 3-year nasal cannula oxygen. No CBC was done today sputum cultures currently pending Objective - Vital Signs Vital signs: Vital Signs Temp 97.5 F L 06/19/24 13:00 Pulse 88 06/19/24 15:22 Resp 20 06/19/24 13:00 BP 123/70 06/19/24 13:00 Pulse Ox 94 L 06/19/24 13:56 FiO2 Intake & Output 06/18/24 06/19/24 06/19/24 18:59 06:59 18:59 Intake Total 1130 Output Total 500 Balance 630 Weight 65.771 kg Intake: Intake, IV Titration 650 Amount Piperacillin-Tazobactam 3 100 .375 gm In Sodium Chloride 0.9% 100 ml @ 25 mls/hr IVPB Q8HR [facility] Rx# :[id number] Sodium Chloride 0.9% 1, 550 000 ml @ 50 mls/hr IV . Q20H [facility] Rx#:[id number] Oral 480 Output: Urine 500 Other: Voiding Method Toilet # Voids 2 # Bowel Movements 1 - Exam GENERAL DESCRIPTION: An elderly male up in bed in no distress RESPIRATORY SYSTEM: Unlabored breathing , coarse breath sounds bilaterally HEART: S1 S2 regular rate and rhythm , ABDOMEN: Soft , no tenderness EXTREMITIES: No edema feet - Labs CBC & Chem 7: 06/18/24 13:27 06/18/24 13:27 Labs: Abnormal Lab Results - Last 24 Hours (Table) 06/18/24 06/18/24 06/19/24 Range/Units 17:14 20:18 06:19 POC Glucose (mg/dL) 299 H (70-110) mg/dL Troponin I 0.052 H* 0.043 H* (0.000-0.034) ng/mL 06/19/24 Range/Units 11:34 POC Glucose (mg/dL) 129 H (70-110) mg/dL Troponin I (0.000-0.034) ng/mL Assessment and Plan (1) Pneumonia Current Visit: Yes Status: Acute Code(s): J18.9 - PNEUMONIA, UNSPECIFIED ORGANISM SNOMED Code(s): 752931924 (2) Sepsis Current Visit: No Status: Acute Code(s): A41.9 - SEPSIS, UNSPECIFIED ORGANISM SNOMED Code(s): 46190441 Plan: 1patient presented to hospital with sepsis in this patient who did have fever tachycardia mild hypotension source is likely pneumonia in this patient who recently did have a COVID-19 will need to cover for resistant gram negative to be the likely etiology and the patient recently grew Pseudomonas in his BAL culture 2-sputum culture-has been obtained which are currently pending 3-patient to continue with Zosyn 3.375 g every 8 hours while waiting for the culture to finalize Dictation was produced using [employer] dictation software. please excuse any grammatical, word or spelling errors. Time with Patient: Less than 30
[2024-06-19 16:45] LABS: Glucose,Whole Blood 208 mg/dL (70-110)
[2024-06-19 19:30] LABS: Glucose,Whole Blood 340 mg/dL (70-110)
[2024-06-20 06:21] LABS: Glucose,Whole Blood 180 mg/dL (70-110)
[2024-06-20] MEDS: ENOXAPARIN 30 MG/0.3 ML SYRINGE SQ SCH (08:52)
--- NOTE | 2024-06-20 11:26 | P.PN ---
Subjective Progress Note Date: 06/20/24 This is a very pleasant 79-year-old male patient who has a history of chronic and ongoing tobacco dependence, severe COPD maintained on a combination of Wixela and Spiriva on an outpatient basis. His previous pulmonary function test from 2020 has shown as an FEV1 of 39% of predicted at baseline. He is also oxygen dependent and utilizes oxygen on and off as requirement of oxygen becomes more needed whenever he gets an acute exacerbation. He has class III/IV chronic exertional dyspnea. He is also being monitored for a right upper lobe pulmonary nodule which is measuring 1.1 cm in size there was noted to be PET avid. Based on his advanced COPD and limited performance status he was recommended continue surveillance of this pulmonary nodule and decide at the later stage if SBRT would be of any benefit for this patient. He is also known to have coronary artery disease, has undergone previous coronary bypass surgery. He has also undergone previous stenting to SVG to RCA. Other comorbidities include hypertension, hyperlipidemia, previous history of non-Hodgkin's lymphoma treated with rituximab and the patient has carotid artery disease, abdominal aortic aneurysm with previous endovascular stent grafting and the patient has a aorto by iliac endovascular graft along with previous history of a upper GI bleed related to a duodenal ulcer which resulted into significant blood loss anemia. He has had frequent readmissions to the hospital. Recently discharged on June 07, 2024. His most recent bronchoscopy was performed on 06/03/2024 and was found to have Stenotrophomonas maltophilia and was treated with Ciprofloxacin. He came back to the emergency room yesterday 06/18/2024 with complaints of increasing shortness of breath, cough and congestion. Chest x-ray reveals interstitial opacities bilaterally. No pleural effusion. Mild hyperinflation. White count 6.2. Hemoglobin 12.4. Platelets 204. Sodium 139. Potassium 3.7. Bicarb 33. BUN 39. Creatinine 1.91. Glucose 131. Troponin 0.043. proBNP 571. Procalcitonin 0.29. He has been initiated on DuoNeb inhalations, Symbicort, prednisone taper. Antibiotics in the form of Zosyn. Lovenox for DVT prophylaxis. He is seen in consultation on the regular medical floor. Currently sitting up in bed. He is dyspneic with conversation. Dyspneic with minimal exertion. Admits to still smoking 2 to 3 cigarettes a day. Currently maintaining O2 saturations in the 90s on 3 L/min per nasal cannula. He has been afebrile. Hemodynamically stable. The patient is seen today June 20, 2024 in follow-up on the regular medical floor. He is currently resting in bed. Awake and alert in no acute distress. He is breathing a bit easier today compared to yesterday. His only complaint is of sinus congestion. He is maintaining good O2 saturations in the 90s on 3 L/min per nasal cannula. No IV fluids. Blood and sputum cultures revealing no growth to date. Glucose 180. He is continued on DuoNeb and elations, Sym bicort, Singulair, prednisone taper. Lovenox for DVT prophylaxis. Objective - Vital Signs Vital signs: Vital Signs Temp 97.7 F 06/20/24 07:10 Pulse 86 06/20/24 08:53 Resp 18 06/20/24 07:45 BP 106/65 06/20/24 07:10 Pulse Ox 89 L 06/20/24 07:10 FiO2 Intake & Output 06/19/24 06/20/24 06/20/24 18:59 06:59 18:59 Intake Total 1080 Output Total 1200 Balance -120 Weight 66.8 kg Intake: Intake, IV Titration 600 Amount Piperacillin-Tazobactam 3 100 .375 gm In Sodium Chloride 0.9% 100 ml @ 25 mls/hr IVPB Q8HR [facility] Rx# :[id number] Sodium Chloride 0.9% 1, 500 000 ml @ 50 mls/hr IV . Q20H [facility] Rx#:[id number] Oral 480 Output: Urine 1200 Other: Voiding Method Toilet Toilet Urinal Urinal # Voids 1 3 # Bowel Movements 1 - Exam GENERAL EXAM: Alert, 79-year-old male patient, on 3 L nasal cannula, comfortable in no apparent distress. HEAD: Normocephalic. EYES: Normal reaction of pupils, equal size. NOSE: Clear with pink turbinates. THROAT: No erythema or exudates. NECK: No masses, no JVD. CHEST: No chest wall deformity. LUNGS: Equal air entry with bilateral scattered rhonchi. CVS: S1 and S2 normal with no audible murmur, regular rhythm. ABDOMEN: No hepatosplenomegaly, normal bowel sounds, no guarding or rigidity. SPINE: No scoliosis or deformity SKIN: No rashes CENTRAL NERVOUS SYSTEM: No focal deficits, tone is normal in all 4 extremities. EXTREMITIES: There is no peripheral edema. No clubbing, no cyanosis. Peripheral pulses are intact. - Labs CBC & Chem 7: 06/18/24 13:27 06/18/24 13:27 Labs: Abnormal Lab Results - Last 24 Hours (Table) 06/19/24 06/19/24 06/19/24 Range/Units 11:34 16:43 19:29 POC Glucose (mg/dL) 129 H 208 H 340 H (70-110) mg/dL 06/20/24 Range/Units 06:19 POC Glucose (mg/dL) 180 H (70-110) mg/dL Microbiology - Last 24 Hours (Table) 06/18/24 15:53 Gram Stain - Preliminary Sputum 06/18/24 15:14 Blood Culture - Preliminary Blood Assessment and Plan Assessment: Acute on chronic hypoxic respiratory failure secondary to an acute exacerbation of COPD. Procalcitonin negative. Frequent admissions for COPD exacerbation. Recent discharge on 06/07/2024. Recent bronchoscopy of 06/03/2024 revealed Stenotrophomonas maltophilia, treated with ciprofloxacin Chronic and ongoing tobacco dependence Oxygen dependent chronic obstructive pulmonary disease with an FEV1 value 39% of predicted Chronic tobacco dependence of greater than 60 years Right upper lobe PET avid pulmonary nodule which is being monitored on out patient basis History of non-Hodgkin's lymphoma Chronic stage III kidney disease Coronary disease with previous coronary artery bypass surgery in 2001 History of abdominal aortic aneurysm status post stent placement in March 2022 Carotid stenosis status post endarterectomy History of ESBL E. coli and bronchial wash in 2021 Hyperlipidemia Hypertension Plan: The patient was seen and evaluated Labs and medications reviewed Continue DuoNeb inhalations, Symbicort, prednisone Lovenox for DVT prophylaxis Maries [place] for nasal congestion We will continue to follow I have personally seen and examined the patient, performed the documentation and the assessment and plan as written. Number of minutes spent on the visit: 10. Dictation was produced using [employer] software. Please excuse any grammatical, word or spelling errors.
[2024-06-20 11:42] LABS: Glucose,Whole Blood 144 mg/dL (70-110)
[2024-06-20 12:06] LABS: African American GFR (CKD) 64 (>60 ml/min/1.73 sqM); Anion Gap 7 mmol/L; Blood Urea Nitrogen 25 mg/dL (9-20); Calcium 7.7 mg/dL (8.4-10.2); Carbon Dioxide 28 mmol/L (22-30); Chloride 108 mmol/L (98-107); Glucose 120 mg/dL (74-99); Non-African American GFR(CKD) 56 (>60 ml/min/1.73 sqM); Potassium 3.6 mmol/L (3.5-5.1); Sodium 143 mmol/L (137-145)
--- NOTE | 2024-06-20 12:11 | P.PN ---
Subjective Progress Note Date: 06/20/24 79 year old M with PMH of systolic CHF with EF 40 to 45%, COPD on 3L home O2, chronic kidney disease, hypertension, hyperlipidemia, non-Hodgkins lymphoma, CAD with CABG, AAA with stent, carotid stenosis with endarterectomy presents to the ED for shortness of breath. Apparently his O2 sat was in the 70s when EMS arrived on his 3L NC. Recently admitted from 06/05-06/07 for similar complaints, COVID + at that time, treated with bronchodilators, Zosyn, SoluMedrol and discharged on a Prednisone taper and to complete a course of Ciprofloxacin. He recently underwent bronchoscopy with BAL with Dr. Cano on 05/13 with cultures resulting in Pseudomonas and ariel albicans. He was started on Ciprofloxacin at that time. He underwent repeat bronchoscopy with BAL with Dr. Cano on 06/03 which grew stenotrophomonas maltophilia. In the ED he underwent extensive evaluation. Tmax 100F, BP 119/62, HR 102, RR 40, 91% on 3L. CBC, Coag panel, CMP significant for RBC 4, Hg 12.4, Hct 35.8, PT 9.9, bicarb 33, BUN 39, Cr 1.91, glu 131. Lactic acid 2.9. Troponin 0.054. EKG sinus tachycardia with RBBB. CXR showed COPD with patchy interstitial densities increased from previous CXRs. Patient is admitted for further workup and management. 06/20 Patient was seen and examined. Doing slightly better. 89% on 3L NC this morning. Maintained on Zosyn. Son at bedside wondering about another bronchoscopy. BMP Cl 108, BUN 25, glu 120, Ca 7.7. Legionella neg. General: non toxic, no distress, appears at stated age Derm: warm, dry Head: atraumatic, normocephalic, symmetric Eyes: EOMI, no lid lag, anicteric sclera Mouth: no lip lesion, mucus membranes moist Cardiovascular: S1S2 reg, no murmur Lungs: Decreased BS bilaterally, no rhonchi, no rales , no accessory muscle use Ext: no gross muscle atrophy, 1+ bilateral LE edema, no contractures Neuro: no focal neuro deficits Psych: Alert, oriented, appropriate affect Based on my assessment of this patient, this patient meets a high complexity level of care. Active conditions: Sepsis due to PNA: Possible post viral PNA. Immunocompromised given chronic ster oid use. Recent BAL culture with Pseudomonas and stenotrophomonas maltophilia. Continue Zosyn 3.75g IV TID (D3). Pro-judi negative, Azithromycin discontinued. Follow BCx, Sputum Cx, Legionella Ag, Mycoplasma Ab. Telemetry monitoring. Judicious use of fluids given h/o CHF. Pulmonary and ID on board. Acute on chronic COPD exacerbation: Symbicort 2 INH BID. DuoNeb Q4H scheduled. Singulair 10 mg PO HS. Elevated Troponin: Likely demand ischemia. Flat. ACS ruled out. No chest pain. ASA 81 mg PO QD. Lipitor 40 mg PO QHS. Plavix 75 mg PO QD. Metoprolol 25 mg PO QD. Diabetes mellitus: A1c 7.3. ISS. Accuchecks ACHS. Hypoglycemic precautions. Lactic acidosis: Related to sepsis. Trend until negative. BRITT on CKD: Stop IVF. Likely prerenal from sepsis. Improved. Chronic conditions: Systolic CHF with EF 40-45%: Appears euvolemic. Hypertension: Metoprolol as above. Dyslipidemia: Lipitor as above. non-Hodgkins lymphoma CAD with CABG: ASA, Lipitor, Plavix, Metoprolol as above. AAA with stent: ASA, Lipitor, Plavix, Metoprolol as above. Carotid stenosis with endarterectomy: ASA, Lipitor, Plavix, as above. CODE STATUS: FULL CODE DVT Prophylaxis: Lovenox GI Prophylaxis: Protonix Designated medical POA if patient is not able to make medical decisions for themselves: I have reviewed the following building energy consultant notes: Pulm, ID note. I have reviewed the results of the following tests: BMP. Legionella I have ordered the following tests: BCx. Sputum Cx. I have discussed the care of this patient with the following independent historian: Son. I have independently interpreted the following test below: I have discussed the management of this patient with the following physician: Objective - Vital Signs Vital signs: Vital Signs Temp 97.7 F 06/20/24 07:10 Pulse 80 06/20/24 12:05 Resp 18 06/20/24 07:45 BP 106/65 06/20/24 07:10 Pulse Ox 89 L 06/20/24 07:10 FiO2 Intake & Output 06/19/24 06/20/24 06/20/24 18:59 06:59 18:59 Intake Total 1080 Output Total 1200 Balance -120 Weight 66.8 kg Intake: Intake, IV Titration 600 Amount Piperacillin-Tazobactam 3 100 .375 gm In Sodium Chloride 0.9% 100 ml @ 25 mls/hr IVPB Q8HR [facility] Rx# :[id number] Sodium Chloride 0.9% 1, 500 000 ml @ 50 mls/hr IV . Q20H [facility] Rx#:[id number] Oral 480 Output: Urine 1200 Other: Voiding Method Toilet Toilet Urinal Urinal # Voids 1 3 # Bowel Movements 1 - Labs CBC & Chem 7: 06/18/24 13:27 06/20/24 11:07 Labs: Abnormal Lab Results - Last 24 Hours (Table) 06/19/24 06/19/24 06/20/24 Range/Units 16:43 19:29 06:19 Chloride (98-107) mmol/L BUN (9-20) mg/dL Glucose (74-99) mg/dL POC Glucose (mg/dL) 208 H 340 H 180 H (70-110) mg/dL Calcium (8.4-10.2) mg/dL 06/20/24 06/20/24 Range/Units 11:07 11:40 Chloride 108 H (98-107) mmol/L BUN 25 H (9-20) mg/dL Glucose 120 H (74-99) mg/dL POC Glucose (mg/dL) 144 H (70-110) mg/dL Calcium 7.7 L (8.4-10.2) mg/dL Microbiology - Last 24 Hours (Table) 06/18/24 15:53 Gram Stain - Preliminary Sputum 06/18/24 15:14 Blood Culture - Preliminary Blood
--- NOTE | 2024-06-20 14:48 | P.PN ---
Subjective Progress Note Date: 06/20/24 Principal diagnosis: Reason for follow-up is pneumonia Patient is a 79-year-old male with a past medical history significant for non-Hodgkin lymphoma COPD hypertension hyperlipidemia heart failure recently diagnosed with a COVID-19 presented to hospital for evaluation of increasing shortness of breath and cough sputum production did have patient evaluated on the chest x-ray concerning for pneumonia. On today's evaluation that is 06/20/2024,the patient denies any fever or any chills, patient is breathing comfortably on 3 L nasal cannula oxygen, the patient denies chest pain shortness of breath and no worsening cough, patient denies abdominal pain, no nausea vomiting or diarrhea. Patient did have a creatinine 1.22 blood and sputum cultures currently pending Objective - Vital Signs Vital signs: Vital Signs Temp 97.5 F L 06/20/24 13:55 Pulse 92 06/20/24 13:55 Resp 19 06/20/24 13:55 BP 119/71 06/20/24 13:55 Pulse Ox 91 L 06/20/24 13:55 FiO2 Intake & Output 06/19/24 06/20/24 06/20/24 18:59 06:59 18:59 Intake Total 1080 Output Total 1200 Balance -120 Weight 66.8 kg Intake: Intake, IV Titration 600 Amount Piperacillin-Tazobactam 3 100 .375 gm In Sodium Chloride 0.9% 100 ml @ 25 mls/hr IVPB Q8HR [facility] Rx# :[id number] Sodium Chloride 0.9% 1, 500 000 ml @ 50 mls/hr IV . Q20H [facility] Rx#:[id number] Oral 480 Output: Urine 1200 Other: Voiding Method Toilet Toilet Urinal Urinal # Voids 1 3 # Bowel Movements 1 - Exam GENERAL DESCRIPTION: An elderly male up in bed in no distress RESPIRATORY SYSTEM: Unlabored breathing , coarse breath sounds bilaterally HEART: S1 S2 regular rate and rhythm , ABDOMEN: Soft , no tenderness EXTREMITIES: No edema feet - Labs CBC & Chem 7: 06/18/24 13:27 06/20/24 11:07 Labs: Abnormal Lab Results - Last 24 Hours (Table) 06/19/24 06/19/24 06/20/24 Range/Units 16:43 19:29 06:19 Chloride (98-107) mmol/L BUN (9-20) mg/dL Glucose (74-99) mg/dL POC Glucose (mg/dL) 208 H 340 H 180 H (70-110) mg/dL Calcium (8.4-10.2) mg/dL 06/20/24 06/20/24 Range/Units 11:07 11:40 Chloride 108 H (98-107) mmol/L BUN 25 H (9-20) mg/dL Glucose 120 H (74-99) mg/dL POC Glucose (mg/dL) 144 H (70-110) mg/dL Calcium 7.7 L (8.4-10.2) mg/dL Microbiology - Last 24 Hours (Table) 06/18/24 15:53 Gram Stain - Preliminary Sputum Sputum Culture - Preliminary 06/18/24 15:14 Blood Culture - Preliminary Blood Assessment and Plan (1) Pneumonia Current Visit: Yes Status: Acute Code(s): J18.9 - PNEUMONIA, UNSPECIFIED ORGANISM SNOMED Code(s): 267781776 (2) Sepsis Current Visit: No Status: Acute Code(s): A41.9 - SEPSIS, UNSPECIFIED ORGANISM SNOMED Code(s): 30834518 Plan: 1patient presented to hospital with sepsis in this patient who did have fever tachycardia mild hypotension source is likely pneumonia in this patient who recently did have a COVID-19 will need to cover for resistant gram negative to be the likely etiology and the patient recently grew Pseudomonas in his BAL culture 2-blood sputum culture currently pending 3-patient did have some clinical improvement will continue with Zosyn 3.375 g every 8 hours while waiting for the culture to finalize Dictation was produced using [employer] dictation software. please excuse any grammatical, word or spelling errors. Time with Patient: Less than 30
[2024-06-20] MEDS: LACTOBACILLUS ACIDOPHILUS/PECT 1 EACH CAPSULE PO SCH (15:27)
[2024-06-20 16:59] LABS: Glucose,Whole Blood 312 mg/dL (70-110)
[2024-06-20 20:22] LABS: Glucose,Whole Blood 316 mg/dL (70-110)
[2024-06-21] MEDS: SODIUM CHLORIDE 0.65% NASAL SPRAY 44 ML BTL NASAL PRN (06:09)
[2024-06-21 06:12] LABS: Glucose,Whole Blood 78 mg/dL (70-110)
[2024-06-21 08:03] LABS: Glucose,Whole Blood 78 mg/dL (70-110)
[2024-06-21] MEDS: FUROSEMIDE 10 MG/ML 4 ML VIAL IV STA (08:11)
--- NOTE | 2024-06-21 08:12 | XR ---
EXAMINATION TYPE: XR chest 1V portable DATE OF EXAM: 06/21/2024 COMPARISON: 06/19/2024 HISTORY: Shortness of breath TECHNIQUE: Single frontal view of the chest is obtained. FINDINGS: There is been prior CABG surgery. The heart and pulmonary vasculature are normal. There is moderate interstitial opacity in the lung bases and lucency in the upper lobes consistent w ith COPD. Interstitial opacity possibly is chronic in nature and has been seen on multiple prior ches t x-rays dating back to 2021. There are no definite acute changes. There is no pneumothorax or pleural effusion. The osseous structures are intact. IMPRESSION: 1. COPD with probable chronic interstitial changes in the lung bases. There is no airspace consolida tion. Acute interstitial process superimposed on COPD cannot be entirely excluded but is felt to be l ess likely. 2. CABG surgery 3. Normal heart size and no pulmonary vascular congestion. [facility] , 06/21/2024 8:10 AM
[2024-06-21] MEDS: LORazepam 2 MG/ML INJ IV STA ×2 (08:24→09:16)
[2024-06-21] MEDS: ENOXAPARIN 40 MG/0.4 ML SYRINGE SQ SCH (08:52)
[2024-06-21] MEDS: ALPRAZolam 0.5 MG TAB PO PRN (08:55)
[2024-06-21 09:10] LABS: ABG Base Excess 3.3 mmol/L; ABG HCO3 27 mmol/L (21-25); ABG Oxygen Saturation 89.2 % (94-97); ABG PCO2 35 mmHg (35-45); ABG PH 7.49 (7.35-7.45); ABG TCO2 28 mmol/L (19-24); Allen Test Performed? Yes
[2024-06-21] MEDS: PANTOPRAZOLE 40 MG/10 ML VIAL IVP SCH (09:12)
[2024-06-21] MEDS: LACTATED RINGERS 1,000 ML IV SCH (09:17)
[2024-06-21 09:22] LABS: ABG PO2 52 mmHg (83-108)
[2024-06-21 09:27] LABS: African American GFR (CKD) 59 (>60 ml/min/1.73 sqM); Anion Gap 6 mmol/L; Blood Urea Nitrogen 22 mg/dL (9-20); Calcium 8.8 mg/dL (8.4-10.2); Carbon Dioxide 29 mmol/L (22-30); Chloride 108 mmol/L (98-107); Glucose 83 mg/dL (74-99); Non-African American GFR(CKD) 51 (>60 ml/min/1.73 sqM); Potassium 4.3 mmol/L (3.5-5.1); Sodium 143 mmol/L (137-145)
[2024-06-21 09:44] LABS: Basophils % (A) 0 %; Eosinophils % (A) 0 %; HCT 36.3 % (39.0-53.0); HGB 12.4 gm/dL (13.0-17.5); Lymphocytes # (A) 2.1 k/uL (1.0-4.8); Lymphocytes % (A) 18 %; MCH 31.4 pg (25.0-35.0); MCHC 34.1 g/dL (31.0-37.0); MCV 92.1 fL (80.0-100.0); Monocytes # (A) 0.6 k/uL (0-1.0); Monocytes % (A) 5 %; Neutrophils # (A) 8.8 k/uL (1.3-7.7); Neutrophils % (A) 75 %; Platelet Count 236 k/uL (150-450); RBC 3.94 m/uL (4.30-5.90); RDW 15.7 % (11.5-15.5); WBC 11.6 k/uL (3.8-10.6)
--- NOTE | 2024-06-21 10:38 | P.PN ---
Subjective Progress Note Date: 06/21/24 Principal diagnosis: COPD exacerbation. This is a very pleasant 79-year-old male patient who has a history of chronic and ongoing tobacco dependence, severe COPD maintained on a combination of Wixela and Spiriva on an outpatient basis. His previous pulmonary function test from 2020 has shown as an FEV1 of 39% of predicted at baseline. He is also oxygen dependent and utilizes oxygen on and off as requirement of oxygen becomes more needed whenever he gets an acute exacerbation. He has class III/IV chronic exertional dyspnea. He is also being monitored for a right upper lobe pulmonary nodule which is measuring 1.1 cm in size there was noted to be PET avid. Based on his advanced COPD and limited performance status he was recommended continue surveillance of this pulmonary nodule and decide at the later stage if SBRT would be of any benefit for this patient. He is also known to have coronary artery disease, has undergone previous coronary bypass surgery. He has also undergone previous stenting to SVG to RCA. Other comorbidities include hypertension, hyperlipidemia, previous history of non-Hodgkin's lymphoma treated with rituximab and the patient has carotid artery disease, abdominal aortic aneurysm with previous endovascular stent grafting and the patient has a aorto by iliac endovascular graft along with previous history of a upper GI bleed related to a duodenal ulcer which resulted into significant blood loss anemia. He has had frequent readmissions to the hospital. Recently discharged on June 07, 2024. His most recent bronchoscopy was performed on 06/03/2024 and was found to have Stenotrophomonas maltophilia and was treated with Ciprofloxa mindy. He came back to the emergency room yesterday 06/18/2024 with complaints of increasing shortness of breath, cough and congestion. Chest x-ray reveals interstitial opacities bilaterally. No pleural effusion. Mild hyperinflation. White count 6.2. Hemoglobin 12.4. Platelets 204. Sodium 139. Potassium 3.7. Bicarb 33. BUN 39. Creatinine 1.91. Glucose 131. Troponin 0.043. proBNP 571 . Procalcitonin 0.29. He has been initiated on DuoNeb inhalations, Symbicort, prednisone taper. Antibiotics in the form of Zosyn. Lovenox for DVT prophylaxis. He is seen in consultation on the regular medical floor. Currently sitting up in bed. He is dyspneic with conversation. Dyspneic with minimal exertion. Admits to still smoking 2 to 3 cigarettes a day. Currently maintaining O2 saturations in the 90s on 3 L/min per nasal cannula. He has been afebrile. Hemodynamically stable. The patient is seen today June 20, 2024 in follow-up on the regular medical floor. He is currently resting in bed. Awake and alert in no acute distress. He is breathing a bit easier today compared to yesterday. His only complaint is of sinus congestion. He is maintaining good O2 saturations in the 90s on 3 L/min per nasal cannula. No IV fluids. Blood and sputum cultures revealing no growth to date. Glucose 180. He is continued on DuoNeb and elations, Symbicort, Singulair, prednisone taper. Lovenox for DVT prophylaxis. Progress note dated June 21, 2024. This is an 79-year-old male with a history of severe COPD. FEV1 is 39% of predicted. Unfortunately, the patient does continue to smoke cigarettes. He was admitted with a diagnosis of COPD exacerbation. This morning, a rapid response team was called to this patient's bed, in room 476. The patient was very short of breath. He was placed on BiPAP, 12/5 and 40%. Blood gases were ordered. A chest x-ray was ordered. He received some Ativan and Xanax. He is getting lactated Ringer's at 50 cc an hour. The patient is a DO NOT INTUBATE patient. White count 11.6, hemoglobin 12.4, hematocrit 36.3, platelet count normal. Repeat blood gases show pO2 of 52, pCO2 of 35, and a pH of 7.49. At this point, the BiPAP was changed to 16/5. The FiO2 was increased to 50%. Sodium 143, potassium 4.3, chlorides 108, CO2 29, BUN 22, creatinine 1.30. Calcium is 8.8. Sputum and blood sampling has been negative thus far. Chest x- ray shows changes of COPD, without evidence of airspace consolidation. Objective - Vital Signs Vital signs: Vital Signs Temp 98.4 F 06/21/24 08:40 Pulse 146 H 06/21/24 08:40 Resp 18 06/21/24 08:40 BP 153/93 06/21/24 08:40 Pulse Ox 97 06/21/24 08:40 FiO2 50 06/21/24 09:11 Intake & Output 06/20/24 06/21/24 06/21/24 18:59 06:59 18:59 Intake Total 600 150 Output Total 227 877 2137 Balance -320 250 -850 Weight 65.5 kg Intake: IV 150 Lactated Ringers 1,000 ml 50 @ 50 mls/hr IV .Q20H [facility] Rx#:[id number] Piperacillin-Tazobactam 3 100 .375 gm In Sodium Chloride 0.9% 100 ml @ 25 mls/hr IVPB Q8HR [facility] Rx# :[id number] Intake, IV Titration 600 Amount Piperacillin-Tazobactam 3 100 .375 gm In Sodium Chloride 0.9% 100 ml @ 25 mls/hr IVPB Q8HR [facility] Rx# :[id number] Sodium Chloride 0.9% 1, 500 000 ml @ 50 mls/hr IV . Q20H [facility] Rx#:[id number] Output: Urine [id number] Other: Voiding Method Toilet Indwelling Catheter Urinal # Voids 1 2 # Bowel Movements 1 1 - Exam Patient is very short of breath, with conversational dyspnea, and use of accessory muscles, currently on BiPAP. HEENT examination is grossly unremarkable. Mucous membranes are moist. No oral lesions. Neck supple. Full range of motion. No adenopathy thyromegaly or neck vein distention. Cardiovascular examination reveals regular rhythm rate. S1-S2 normal. No S3 or S4. No discernible murmur noted. Heart sounds are distant. Heart rate 140 bpm. Lungs reveal scattered bilateral rhonchi and expiratory wheezes. No crackles. Breath sounds equal but diminished throughout. Abdomen soft and without bowel sounds. No masses or tenderness. Extremities are intact. No cyanosis clubbing or edema. Skin is without rash or lesion. Neurologic examination is brief but nonfocal. - Labs CBC & Chem 7: 06/21/24 08:48 06/21/24 08:48 Labs: Abnormal Lab Results - Last 24 Hours (Table) 06/20/24 06/20/24 06/20/24 Range/Units 11:07 11:40 16:57 WBC (3.8-10.6) k/uL RBC (4.30-5.90) m/uL Hgb (13.0-17.5) gm/dL Hct (39.0-53.0) % RDW (11.5-15.5) % Neutrophils # (1.3-7.7) k/uL ABG pH (7.35-7.45) ABG pO2 (83-108) mmHg ABG HCO3 (21-25) mmol/L ABG Total CO2 (19-24) mmol/L ABG O2 Saturation (94-97) % Hemoglobin (13.0-17.5) gm/dL Chloride 108 H (98-107) mmol/L BUN 25 H (9-20) mg/dL Creatinine (0.66-1.25) mg/dL Glucose 120 H (74-99) mg/dL POC Glucose (mg/dL) 144 H 312 H (70-110) mg/dL Calcium 7.7 L (8.4-10.2) mg/dL 06/20/24 06/21/24 06/21/24 Range/Units 20:20 08:48 08:48 WBC 11.6 H (3.8-10.6) k/uL RBC 3.94 L (4.30-5.90) m/uL Hgb 12.4 L (13.0-17.5) gm/dL Hct 36.3 L (39.0-53.0) % RDW 15.7 H (11.5-15.5) % Neutrophils # 8.8 H (1.3-7.7) k/uL ABG pH (7.35-7.45) ABG pO2 (83-108) mmHg ABG HCO3 (21-25) mmol/L ABG Total CO2 (19-24) mmol/L ABG O2 Saturation (94-97) % Hemoglobin (13.0-17.5) gm/dL Chloride 108 H (98-107) mmol/L BUN 22 H (9-20) mg/dL Creatinine 1.30 H (0.66-1.25) mg/dL Glucose (74-99) mg/dL POC Glucose (mg/dL) 316 H (70-110) mg/dL Calcium (8.4-10.2) mg/dL 06/21/24 Range/Units 09:08 WBC (3.8-10.6) k/uL RBC (4.30-5.90) m/uL Hgb (13.0-17.5) gm/dL Hct (39.0-53.0) % RDW (11.5-15.5) % Neutrophils # (1.3-7.7) k/uL ABG pH 7.49 H (7.35-7.45) ABG pO2 52 L* (83-108) mmHg ABG HCO3 27 H (21-25) mmol/L ABG Total CO2 28 H (19-24) mmol/L ABG O2 Saturation 89.2 L (94-97) % Hemoglobin 12.2 L (13.0-17.5) gm/dL Chloride (98-107) mmol/L BUN (9-20) mg/dL Creatinine (0.66-1.25) mg/dL Glucose (74-99) mg/dL POC Glucose (mg/dL) (70-110) mg/dL Calcium (8.4-10.2) mg/dL Microbiology - Last 24 Hours (Table) 06/18/24 15:53 Gram Stain - Final Sputum Sputum Culture - Final 06/18/24 15:14 Blood Culture - Preliminary Blood Assessment and Plan Assessment: Acute on chronic hypoxic respiratory failure secondary to an acute exacerbation of COPD. Frequent admissions for COPD exacerbation. Recent discharge on 06/07/2024. Recent bronchoscopy of 06/03/2024 revealed Stenotrophomonas maltophilia, treated with ciprofloxacin. Chronic and ongoing tobacco dependence Oxygen dependent chronic obstructive pulmonary disease with an FEV1 value 39% of predicted. Chronic tobacco dependence of greater than 60 years. Right upper lobe PET avid pulmonary nodule which is being monitored on outpatient basis. History of non-Hodgkin's lymphoma. Chronic stage III kidney disease. Coronary disease with previous coronary artery bypass surgery in 2001. History of abdominal aortic aneurysm status post stent placement in March 2022. Carotid stenosis status post endarterectomy. History of ESBL E. coli and bronchial wash in 2021. Hyperlipidemia. Hypertension. Plan: Plan dated June 21, 2024. The patient is transferred to the intensive care unit, as a 3 S. overflow. He is placed on BiPAP, with settings of 16/5, and 50%. Blood gases have been ordered as well as a chest x-ray. The patient received some Ativan for sedation and anxiety control. He is getting lactated Ringer's at 50 cc an hour. I confirmed with the nurses that the patient is a DO NOT INTUBATE patient. Labs, x-rays, and all medications are reviewed. The patient's overall prognosis remains poor. He has severe COPD with an FEV1 that is only 39% of predicted. Time with Patient: Less than 30
[2024-06-21] MEDS: MORPHINE SULFATE 4 MG/ML SYRINGE IVP PRN (11:03)
[2024-06-21 11:12] LABS: Glucose,Whole Blood 85 mg/dL (70-110)
--- NOTE | 2024-06-21 11:14 | P.PN ---
Subjective Progress Note Date: 06/21/24 79 year old M with PMH of systolic CHF with EF 40 to 45%, COPD on 3L home O2, chronic kidney disease, hypertension, hyperlipidemia, non-Hodgkins lymphoma, CAD with CABG, AAA with stent, carotid stenosis with endarterectomy presents to the ED for shortness of breath. Apparently his O2 sat was in the 70s when EMS arrived on his 3L NC. Recently admitted from 06/05-06/07 for similar complaints, COVID + at that time, treated with bronchodilators, Zosyn, SoluMedrol and discharged on a Prednisone taper and to complete a course of Ciprofloxacin. He recently underwent bronchoscopy with BAL with Dr. Cano on 05/13 with cultures resulting in Pseudomonas and ariel albicans. He was started on Ciprofloxacin at that time. He underwent repeat bronchoscopy with BAL with Dr. Cano on 06/03 which grew stenotrophomonas maltophilia. In the ED he underwent extensive evaluation. Tmax 100F, BP 119/62, HR 102, RR 40, 91% on 3L. CBC, Coag panel, CMP significant for RBC 4, Hg 12.4, Hct 35.8, PT 9.9, bicarb 33, BUN 39, Cr 1.91, glu 131. Lactic acid 2.9. Troponin 0.054. EKG sinus tachycardia with RBBB. CXR showed COPD with patchy interstitial densities increased from previous CXRs. Patient is admitted for further workup and management. 06/21 Patient was seen and examined. A-team called this morning for difficulty breathing. He was placed on BiPAP and moved to ICU for closer monitoring. Maintained on Zosyn. CXR shows patchy interstitial densities. ABG pH 7.49, pCO2 35, pO2 52 on FiO2 40%. CBC and BMP significant for WBC 11.6, RBC 3.94, Hg 12.4, Hct 36.3, Cl 108, BUN 22, Cr 1.30. General: non toxic, moderate distress, appears at stated age Derm: warm, dry Head: atraumatic, normocephalic, symmetric Eyes: EOMI, no lid lag, anicteric sclera Mouth: no lip lesion, mucus membranes moist Cardiovascular: S1S2 tachy, no murmur Lungs: Diffuse expiratory wheezing bilaterally, no rhonchi, no rales , no a ccessory muscle use Ext: no gross muscle atrophy, 1+ bilateral LE edema, no contractures Neuro: no focal neuro deficits Psych: Anxious Based on my assessment of this patient, this patient meets a high complexity level of care. Active conditions: Acute on chronic hypoxic respiratory failure secondary to below Sepsis due to PNA: Possible post viral PNA. Immunocompromised given chronic steroid use. Recent BAL culture with Pseudomonas and stenotrophomonas maltophilia. Continue Zosyn 3.75g IV TID (D4). Pro-judi negative, Azithromycin discontinued. Legionella Ag negative. Follow BCx, Sputum Cx, Mycoplasma Ab. Telemetry monitoring. Judicious use of fluids given h/o CHF. Pulmonary and ID on board. Acute on chronic COPD exacerbation: Symbicort 2 INH BID. DuoNeb Q4H scheduled. Singulair 10 mg PO HS. Prednisone 40 mg PO QD. Elevated Troponin: Likely demand ischemia. Flat. ACS ruled out. No chest pain. ASA 81 mg PO QD. Lipitor 40 mg PO QHS. Plavix 75 mg PO QD. Metoprolol 25 mg PO QD. Diabetes mellitus: A1c 7.3. ISS. Accuchecks ACHS. Hypoglycemic precautions. BRITT on CKD: Stop IVF. Likely prerenal from sepsis. Improved. Resolved: Lactic acidosis Chronic conditions: Systolic CHF with EF 40-45%: Appears euvolemic. Hypertension: Metoprolol as above. Dyslipidemia: Lipitor as above. non-Hodgkins lymphoma CAD with CABG: ASA, Lipitor, Plavix, Metoprolol as above. AAA with stent: ASA, Lipitor, Plavix, Metoprolol as above. Carotid stenosis with endarterectomy: ASA, Lipitor, Plavix, as above. CODE STATUS: FULL CODE DVT Prophylaxis: Lovenox GI Prophylaxis: Protonix Designated medical POA if patient is not able to make medical decisions for themselves: I have reviewed the following workers compensation consultant notes: Pulm note. I have reviewed the results of the following tests: CBC, BMP, ABG. I have ordered the following tests: I have discussed the care of this patient with the following independent historian: I have independently interpreted the following test below: CXR I have discussed the management of this patient with the following physician: Objective - Vital Signs Vital signs: Vital Signs Temp 98.4 F 06/21/24 08:40 Pulse 146 H 06/21/24 08:40 Resp 18 06/21/24 08:40 BP 153/93 06/21/24 08:40 Pulse Ox 97 06/21/24 08:40 FiO2 50 06/21/24 09:11 Intake & Output 06/20/24 06/21/24 06/21/24 18:59 06:59 18:59 Intake Total 600 150 Output Total 774 157 8504 Balance -320 250 -850 Weight 65.5 kg Intake: IV 150 Lactated Ringers 1,000 ml 50 @ 50 mls/hr IV .Q20H [facility] Rx#:[id number] Piperacillin-Tazobactam 3 100 .375 gm In Sodium Chloride 0.9% 100 ml @ 25 mls/hr IVPB Q8HR [facility] Rx# :[id number] Intake, IV Titration 600 Amount Piperacillin-Tazobactam 3 100 .375 gm In Sodium Chloride 0.9% 100 ml @ 25 mls/hr IVPB Q8HR [facility] Rx# :[id number] Sodium Chloride 0.9% 1, 500 000 ml @ 50 mls/hr IV . Q20H [facility] Rx#:[id number] Output: Urine [id number] Other: Voiding Method Toilet Indwelling Catheter Urinal # Voids 1 2 # Bowel Movements 1 1 - Labs CBC & Chem 7: 06/21/24 08:48 06/21/24 08:48 Labs: Abnormal Lab Results - Last 24 Hours (Table) 06/20/24 06/20/24 06/20/24 Range/Units 11:07 11:40 16:57 WBC (3.8-10.6) k/uL RBC (4.30-5.90) m/uL Hgb (13.0-17.5) gm/dL Hct (39.0-53.0) % RDW (11.5-15.5) % Neutrophils # (1.3-7.7) k/uL ABG pH (7.35-7.45) ABG pO2 (83-108) mmHg ABG HCO3 (21-25) mmol/L ABG Total CO2 (19-24) mmol/L ABG O2 Saturation (94-97) % Hemoglobin (13.0-17.5) gm/dL Chloride 108 H (98-107) mmol/L BUN 25 H (9-20) mg/dL Creatinine (0.66-1.25) mg/dL Glucose 120 H (74-99) mg/dL POC Glucose (mg/dL) 144 H 312 H (70-110) mg/dL Calcium 7.7 L (8.4-10.2) mg/dL 06/20/24 06/21/24 06/21/24 Range/Units 20:20 08:48 08:48 WBC 11.6 H (3.8-10.6) k/uL RBC 3.94 L (4.30-5.90) m/uL Hgb 12.4 L (13.0-17.5) gm/dL Hct 36.3 L (39.0-53.0) % RDW 15.7 H (11.5-15.5) % Neutrophils # 8.8 H (1.3-7.7) k/uL ABG pH (7.35-7.45) ABG pO2 (83-108) mmHg ABG HCO3 (21-25) mmol/L ABG Total CO2 (19-24) mmol/L ABG O2 Saturation (94-97) % Hemoglobin (13.0-17.5) gm/dL Chloride 108 H (98-107) mmol/L BUN 22 H (9-20) mg/dL Creatinine 1.30 H (0.66-1.25) mg/dL Glucose (74-99) mg/dL POC Glucose (mg/dL) 316 H (70-110) mg/dL Calcium (8.4-10.2) mg/dL 06/21/24 Range/Units 09:08 WBC (3.8-10.6) k/uL RBC (4.30-5.90) m/uL Hgb (13.0-17.5) gm/dL Hct (39.0-53.0) % RDW (11.5-15.5) % Neutrophils # (1.3-7.7) k/uL ABG pH 7.49 H (7.35-7.45) ABG pO2 52 L* (83-108) mmHg ABG HCO3 27 H (21-25) mmol/L ABG Total CO2 28 H (19-24) mmol/L ABG O2 Saturation 89.2 L (94-97) % Hemoglobin 12.2 L (13.0-17.5) gm/dL Chloride (98-107) mmol/L BUN (9-20) mg/dL Creatinine (0.66-1.25) mg/dL Glucose (74-99) mg/dL POC Glucose (mg/dL) (70-110) mg/dL Calcium (8.4-10.2) mg/dL Microbiology - Last 24 Hours (Table) 06/18/24 15:53 Gram Stain - Final Sputum Sputum Culture - Final 06/18/24 15:14 Blood Culture - Preliminary Blood
[2024-06-21] MEDS ORDERED: LORazepam 2 MG/ML INJ IV PRN (15:40)
[2024-06-21 16:21] LABS: Glucose,Whole Blood 124 mg/dL (70-110)
--- NOTE | 2024-06-21 16:47 | P.PN ---
Subjective Progress Note Date: 06/21/24 Principal diagnosis: Reason for follow-up is pneumonia Patient is a 79-year-old male with a past medical history significant for non-Hodgkin lymphoma COPD hypertension hyperlipidemia heart failure recently diagnosed with a COVID-19 presented to hospital for evaluation of increasing shortness of breath and cough sputum production did have patient evaluated on the chest x-ray concerning for pneumonia. On today's evaluation that is 06/21/2024,the patient did have a low-grade fever of 99.8 F this afternoon patient also have worsening of his respiratory status requiring transfer to the ICU currently on BiPAP patient not requiring any pressor support no vomiting diarrhea in the change reported by nursing staff. Patient white count is 11.6 creatinine is 1.3 0 repeat sputum culture have been negative blood culture so far negative Objective - Vital Signs Vital signs: Vital Signs Temp 99.8 F H 06/21/24 14:00 Pulse 106 H 06/21/24 16:05 Resp 26 H 06/21/24 14:00 BP 104/67 06/21/24 14:00 Pulse Ox 93 L 06/21/24 14:00 FiO2 50 06/21/24 15:47 Intake & Output 06/20/24 06/21/24 06/21/24 18:59 06:59 18:59 Intake Total 600 300 Output Total 150 931 3597 Balance -320 250 -1525 Weight 65.5 kg Intake: IV 300 Lactated Ringers 1,000 ml 200 @ 50 mls/hr IV .Q20H [facility] Rx#:[id number] Piperacillin-Tazobactam 3 100 .375 gm In Sodium Chloride 0.9% 100 ml @ 25 mls/hr IVPB Q8HR [facility] Rx# :[id number] Intake, IV Titration 600 Amount Piperacillin-Tazobactam 3 100 .375 gm In Sodium Chloride 0.9% 100 ml @ 25 mls/hr IVPB Q8HR [facility] Rx# :[id number] Sodium Chloride 0.9% 1, 500 000 ml @ 50 mls/hr IV . Q20H [facility] Rx#:[id number] Output: Urine [id number] Other: Voiding Method Toilet Indwelling Catheter Urinal # Voids 1 2 # Bowel Movements 1 1 - Exam GENERAL DESCRIPTION: An elderly male up in bed in no distress RESPIRATORY SYSTEM: Unlabored breathing , coarse breath sounds bilaterally HEART: S1 S2 regular rate and rhythm , ABDOMEN: Soft , no tenderness EXTREMITIES: No edema feet - Labs CBC & Chem 7: 06/21/24 08:48 06/21/24 08:48 Labs: Abnormal Lab Results - Last 24 Hours (Table) 06/20/24 06/20/24 06/21/24 Range/Units 16:57 20:20 08:48 WBC 11.6 H (3.8-10.6) k/uL RBC 3.94 L (4.30-5.90) m/uL Hgb 12.4 L (13.0-17.5) gm/dL Hct 36.3 L (39.0-53.0) % RDW 15.7 H (11.5-15.5) % Neutrophils # 8.8 H (1.3-7.7) k/uL ABG pH (7.35-7.45) ABG pO2 (83-108) mmHg ABG HCO3 (21-25) mmol/L ABG Total CO2 (19-24) mmol/L ABG O2 Saturation (94-97) % Hemoglobin (13.0-17.5) gm/dL Chloride (98-107) mmol/L BUN (9-20) mg/dL Creatinine (0.66-1.25) mg/dL POC Glucose (mg/dL) 312 H 316 H (70-110) mg/dL 06/21/24 06/21/24 06/21/24 Range/Units 08:48 09:08 16:19 WBC (3.8-10.6) k/uL RBC (4.30-5.90) m/uL Hgb (13.0-17.5) gm/dL Hct (39.0-53.0) % RDW (11.5-15.5) % Neutrophils # (1.3-7.7) k/uL ABG pH 7.49 H (7.35-7.45) ABG pO2 52 L* (83-108) mmHg ABG HCO3 27 H (21-25) mmol/L ABG Total CO2 28 H (19-24) mmol/L ABG O2 Saturation 89.2 L (94-97) % Hemoglobin 12.2 L (13.0-17.5) gm/dL Chloride 108 H (98-107) mmol/L BUN 22 H (9-20) mg/dL Creatinine 1.30 H (0.66-1.25) mg/dL POC Glucose (mg/dL) 124 H (70-110) mg/dL Microbiology - Last 24 Hours (Table) 06/18/24 15:53 Gram Stain - Final Sputum Sputum Culture - Final 06/18/24 15:14 Blood Culture - Preliminary Blood Assessment and Plan (1) Pneumonia Current Visit: Yes Status: Acute Code(s): J18.9 - PNEUMONIA, UNSPECIFIED ORGANISM SNOMED Code(s): 318710541 (2) Sepsis Current Visit: No Status: Acute Code(s): A41.9 - SEPSIS, UNSPECIFIED ORGANISM SNOMED Code(s): 87033530 Plan: 1patient presented to hospital with sepsis in this patient who did have fever tachycardia mild hypotension source is likely pneumonia in this patient who recently did have a COVID-19 will need to cover for resistant gram negative to be the likely etiology and the patient recently grew Pseudomonas in his BAL culture 2-blood cultures are currently pending repeat sputum has been negative 3-patient did have slight worsening of respiratory status requiring transfer to the ICU currently on a BiPAP is broadly covered with Zosyn to continue keeping in mind her sputum has been negative procalcitonin was not that elevated Dictation was produced using [employer] dictation software. please excuse any grammatical, word or spelling errors. Time with Patient: Less than 30
[2024-06-21 21:30] LABS: Glucose,Whole Blood 178 mg/dL (70-110)
[2024-06-22 05:11] LABS: Basophils % (A) 0 %; Eosinophils % (A) 0 %; HCT 29.1 % (39.0-53.0); Lymphocytes # (A) 1.4 k/uL (1.0-4.8); Lymphocytes % (A) 20 %; MCH 30.9 pg (25.0-35.0); MCHC 34.3 g/dL (31.0-37.0); MCV 90.3 fL (80.0-100.0); Mean Platelet Volume 9.4; Monocytes # (A) 0.3 k/uL (0-1.0); Monocytes % (A) 5 %; Neutrophils # (A) 5.1 k/uL (1.3-7.7); Neutrophils % (A) 72 %; Platelet Count 189 k/uL (150-450); RBC 3.23 m/uL (4.30-5.90); WBC 7.1 k/uL (3.8-10.6)
[2024-06-22 05:42] LABS: African American GFR (CKD) 56 (>60 ml/min/1.73 sqM); Anion Gap 0 mmol/L; Blood Urea Nitrogen 27 mg/dL (9-20); Carbon Dioxide 30 mmol/L (22-30); Chloride 108 mmol/L (98-107); Glucose 121 mg/dL (74-99); Non-African American GFR(CKD) 48 (>60 ml/min/1.73 sqM); Potassium 3.8 mmol/L (3.5-5.1); Sodium 138 mmol/L (137-145)
[2024-06-22 06:34] LABS: Glucose,Whole Blood 113 mg/dL (70-110)
--- NOTE | 2024-06-22 07:55 | XR ---
EXAMINATION TYPE: XR chest 1V portable DATE OF EXAM: 06/22/2024 COMPARISON: 06/21/2024 HISTORY: Shortness of breath TECHNIQUE: Single frontal view of the chest is obtained. FINDINGS: Patchy bilateral infiltrate is noted. Underlying COPD. Median sternotomy changes. Atherosc lerotic change aorta. Osteopenia and arthropathy of the shoulders. Degenerative change of the spine. IMPRESSION: Stable patchy bilateral infiltrate. [facility], , 06/22/2024 7:53 AM
[2024-06-22] MEDS: methylPREDNISolone SOD SUCCI 125 MG/2 ML VIAL IV SCH (10:24)
[2024-06-22 12:00] LABS: Glucose,Whole Blood 167 mg/dL (70-110)
[2024-06-22] MEDS: WATER IVPB SCH (12:21)
[2024-06-22] MEDS: SULFAMETHOX TMP IVPB SCH (12:21)
[2024-06-22] MEDS: DEXTROSE 5% IVPB SCH (12:21)
--- NOTE | 2024-06-22 13:01 | P.PN ---
Subjective Progress Note Date: 06/22/24 79 year old M with PMH of systolic CHF with EF 40 to 45%, COPD on 3L home O2, chronic kidney disease, hypertension, hyperlipidemia, non-Hodgkins lymphoma, CAD with CABG, AAA with stent, carotid stenosis with endarterectomy presents to the ED for shortness of breath. Apparently his O2 sat was in the 70s when EMS arrived on his 3L NC. Recently admitted from 06/05-06/07 for similar complaints, COVID + at that time, treated with bronchodilators, Zosyn, SoluMedrol and discharged on a Prednisone taper and to complete a course of Ciprofloxacin. He recently underwent bronchoscopy with BAL with Dr. Cano on 05/13 with cultures resulting in Pseudomonas and ariel albicans. He was started on Ciprofloxacin at that time. He underwent repeat bronchoscopy with BAL with Dr. Cano on 06/03 which grew stenotrophomonas maltophilia. He was continued on Ciprofloxacin and according to the patient has been taking it over the past 5-6 weeks. In the ED he underwent extensive evaluation. Tmax 100F, BP 119/62, HR 102, RR 40, 91% on 3L. CBC, Coag panel, CMP significant for RBC 4, Hg 12.4, Hct 35.8, PT 9.9, bicarb 33, BUN 39, Cr 1.91, glu 131. Lactic acid 2.9. Troponin 0.054. EKG sinus tachycardia with RBBB. CXR showed COPD with patchy interstitial densities increased from previous CXRs. Patient is admitted for further workup and management. Started on bronchodilators, SoluMedrol and Zosyn. ID and Pulmonary consulted. A- team called 06/21 for difficulty breathing. He was placed on BiPAP and moved to ICU for closer monitoring. 06/22 Patient was seen and examined. Currently on Airvo at 50L. Maintained on Zosyn (D4). Pulmonary has added Bactrim IV. CXR shows patchy interstitial densities. CBC and BMP significant for WBC RBC 3.23, Hg 10, Hct 29.1, Cl 108, BUN 27, Cr 1.36, glu 121, Ca 8. Sputum Cx grew normal respiratory devyn, BCx negative at 72H. General: non toxic, no distress, appears at stated age Derm: warm, dry Head: atraumatic, normocephalic, symmetric Eyes: EOMI, no lid lag, anicteric sclera Mouth: no lip lesion, mucus membranes moist Cardiovascular: good distal perfusion in all 4 extremities Lungs: breathing comfortably, no accessory muscle use Ext: no gross muscle atrophy, 1+ bilateral LE edema, no contractures Neuro: no focal neuro deficits Psych: Alert and oriented Based on my assessment of this patient, this patient meets a high complexity level of care. Active conditions: Acute on chronic hypoxic respiratory failure secondary to below Sepsis versus SIRS: Immunocompromised given chronic steroid use. Recent BAL culture with Pseudomonas and stenotrophomonas maltophilia. Patchy infiltrates seen on CXR likely sequelae of COVID PNA. Continue Zosyn 3.75g IV TID (D4). St arted on Bactrim 325 mg IV TID (D1). Pro-judi negative. Legionella Ag, Mycoplasma, BCx, Sputum Cx negative. Telemetry monitoring. Judicious use of fluids given h/o CHF. Pulmonary and ID on board. Recent history of COVID Pneumonia requiring hospitalization from 06/05-06/07. Acute on chronic COPD exacerbation: Symbicort 2 INH BID. DuoNeb Q4H scheduled. Singulair 10 mg PO HS. Switch Prednisone to SoluMedrol 60 mg IV Q6H. Elevated Troponin: Likely demand ischemia. Flat. ACS ruled out. No chest pain. ASA 81 mg PO QD. Lipitor 40 mg PO QHS. Plavix 75 mg PO QD. Metoprolol 25 mg PO QD. Diabetes mellitus: A1c 7.3. ISS. Accuchecks ACHS. Hypoglycemic precautions. BRITT on CKD: Stop IVF. Likely prerenal from sepsis. Improved. Resolved: Lactic acidosis Chronic conditions: Systolic CHF with EF 40-45%: Appears euvolemic. Hypertension: Metoprolol as above. Dyslipidemia: Lipitor as above. non-Hodgkins lymphoma CAD with CABG: ASA, Lipitor, Plavix, Metoprolol as above. AAA with stent: ASA, Lipitor, Plavix, Metoprolol as above. Carotid stenosis with endarterectomy: ASA, Lipitor, Plavix, as above. CODE STATUS: FULL CODE DVT Prophylaxis: Lovenox GI Prophylaxis: Protonix Designated medical POA if patient is not able to make medical decisions for themselves: I have reviewed the following sales and leasing consultant notes: Pulm, ID note. I have reviewed the results of the following tests: CBC, BMP, Sputum Cx, BCx, Mycoplasma Ag. I have ordered the following tests: I have discussed the care of this patient with the following independent historian: jose a CAMILO at bedside. I have independently interpreted the following test below: CXR I have discussed the management of this patient with the following physician: Objective - Vital Signs Vital signs: Vital Signs Temp 97.6 F 06/22/24 04:00 Pulse 70 06/22/24 04:00 Resp 17 06/22/24 04:00 BP 88/57 06/22/24 04:00 Pulse Ox 100 06/22/24 04:00 FiO2 50 06/22/24 04:00 Intake & Output 06/21/24 06/22/24 06/22/24 18:59 06:59 18:59 Intake Total 650 600 Output Total 2375 400 Balance -1725 200 Weight 68.9 kg Intake: IV 650 600 Lactated Ringers 1,000 ml 450 600 @ 50 mls/hr IV .Q20H [facility] Rx#:[id number] Piperacillin-Tazobactam 3 200 .375 gm In Sodium Chloride 0.9% 100 ml @ 25 mls/hr IVPB Q8HR [facility] Rx# :[id number] Output: Urine 2375 400 Other: Voiding Method Indwelling Catheter Indwelling Catheter - Labs CBC & Chem 7: 06/22/24 04:25 06/22/24 04:25 Labs: Abnormal Lab Results - Last 24 Hours (Table) 06/21/24 06/21/24 06/21/24 Range/Units 08:48 08:48 09:08 WBC 11.6 H (3.8-10.6) k/uL RBC 3.94 L (4.30-5.90) m/uL Hgb 12.4 L (13.0-17.5) gm/dL Hct 36.3 L (39.0-53.0) % RDW 15.7 H (11.5-15.5) % Neutrophils # 8.8 H (1.3-7.7) k/uL ABG pH 7.49 H (7.35-7.45) ABG pO2 52 L* (83-108) mmHg ABG HCO3 27 H (21-25) mmol/L ABG Total CO2 28 H (19-24) mmol/L ABG O2 Saturation 89.2 L (94-97) % Hemoglobin 12.2 L (13.0-17.5) gm/dL Chloride 108 H (98-107) mmol/L BUN 22 H (9-20) mg/dL Creatinine 1.30 H (0.66-1.25) mg/dL Glucose (74-99) mg/dL POC Glucose (mg/dL) (70-110) mg/dL Calcium (8.4-10.2) mg/dL 06/21/24 06/21/24 06/22/24 Range/Units 16:19 21:29 04:25 WBC (3.8-10.6) k/uL RBC 3.23 L (4.30-5.90) m/uL Hgb 10.0 L D (13.0-17.5) gm/dL Hct 29.1 L (39.0-53.0) % RDW 16.0 H (11.5-15.5) % Neutrophils # (1.3-7.7) k/uL ABG pH (7.35-7.45) ABG pO2 (83-108) mmHg ABG HCO3 (21-25) mmol/L ABG Total CO2 (19-24) mmol/L ABG O2 Saturation (94-97) % Hemoglobin (13.0-17.5) gm/dL Chloride (98-107) mmol/L BUN (9-20) mg/dL Creatinine (0.66-1.25) mg/dL Glucose (74-99) mg/dL POC Glucose (mg/dL) 124 H 178 H (70-110) mg/dL Calcium (8.4-10.2) mg/dL 06/22/24 06/22/24 Range/Units 04:25 06:33 WBC (3.8-10.6) k/uL RBC (4.30-5.90) m/uL Hgb (13.0-17.5) gm/dL Hct (39.0-53.0) % RDW (11.5-15.5) % Neutrophils # (1.3-7.7) k/uL ABG pH (7.35-7.45) ABG pO2 (83-108) mmHg ABG HCO3 (21-25) mmol/L ABG Total CO2 (19-24) mmol/L ABG O2 Saturation (94-97) % Hemoglobin (13.0-17.5) gm/dL Chloride 108 H (98-107) mmol/L BUN 27 H (9-20) mg/dL Creatinine 1.36 H (0.66-1.25) mg/dL Glucose 121 H (74-99) mg/dL POC Glucose (mg/dL) 113 H (70-110) mg/dL Calcium 8.0 L (8.4-10.2) mg/dL Microbiology - Last 24 Hours (Table) 06/18/24 15:14 Blood Culture - Preliminary Blood 06/18/24 15:53 Gram Stain - Final Sputum Sputum Culture - Final
--- NOTE | 2024-06-22 14:29 | P.PN ---
Subjective Progress Note Date: 06/22/24 On 06/22/2024, the patient is being seen for a follow-up. This morning, the patient is on a BiPAP pressure of 16 over 5 cm of water with FiO2 of 60% and the patient is on a lactated Ringer at rate of 50 cc an hour. Chest x-ray was done this morning and it showed patchy infiltrates in lung bases more so on the right consistent with pneumonia. Most recent bronchoscopy yielded stenotrophomonas and the patient has grown Pseudomonas in the past. The patient is currently on IV Zosyn. He remains on DuoNeb nebulized treatments [id number]. He is on Symbicort. He is on IV Solu-Medrol. He is awake and alert and communicating. The white cell count is at 7 with hemoglobin of 10 and platelet count of 189. BUN is 27 with a creatinine of 1.36 and a sodium levels at 138. He is weak and quite debilitated on a chronic basis. Bactrim will be also added to his regimen. Objective - Vital Signs Vital signs: Vital Signs Temp 97.8 F 06/22/24 12:00 Pulse 87 06/22/24 12:43 Resp 17 06/22/24 12:00 BP 111/71 06/22/24 12:00 Pulse Ox 96 06/22/24 12:00 FiO2 50 06/22/24 12:00 Intake & Output 06/21/24 06/22/24 06/22/24 18:59 06:59 18:59 Intake Total 650 600 Output Total 2375 400 Balance -1725 200 Weight 68.9 kg Intake: IV 650 600 Lactated Ringers 1,000 ml 450 600 @ 50 mls/hr IV .Q20H [facility] Rx#:[id number] Piperacillin-Tazobactam 3 200 .375 gm In Sodium Chloride 0.9% 100 ml @ 25 mls/hr IVPB Q8HR [facility] Rx# :[id number] Output: Urine 2375 400 Other: Voiding Method Indwelling Catheter Indwelling Catheter Indwelling Catheter - Exam Patient is calm and comfortable, communicating while being on a BiPAP currently on BiPAP, pressures of 16 over 5 cm of water HEENT examination is grossly unremarkable. Mucous membranes are moist. No oral lesions. Neck supple. Full range of motion. No adenopathy thyromegaly or neck vein distention. Cardiovascular examination reveals regular rhythm rate. S1-S2 normal. No S3 or S4. No discernible murmur noted. Heart sounds are distant. Lungs reveal scattered bilateral rhonchi and expiratory wheezes. No crackles. Breath sounds equal but diminished throughout. Abdomen soft and without bowel sounds. No masses or tenderness. Extremities are intact. No cyanosis clubbing or edema. Skin is without rash or lesion. Neurologic examination is brief but nonfocal. - Labs CBC & Chem 7: 06/22/24 04:25 06/22/24 04:25 Labs: Abnormal Lab Results - Last 24 Hours (Table) 06/21/24 06/21/24 06/22/24 Range/Units 16:19 21:29 04:25 RBC 3.23 L (4.30-5.90) m/uL Hgb 10.0 L D (13.0-17.5) gm/dL Hct 29.1 L (39.0-53.0) % RDW 16.0 H (11.5-15.5) % Chloride (98-107) mmol/L BUN (9-20) mg/dL Creatinine (0.66-1.25) mg/dL Glucose (74-99) mg/dL POC Glucose (mg/dL) 124 H 178 H (70-110) mg/dL Calcium (8.4-10.2) mg/dL 06/22/24 06/22/24 06/22/24 Range/Units 04:25 06:33 11:58 RBC (4.30-5.90) m/uL Hgb (13.0-17.5) gm/dL Hct (39.0-53.0) % RDW (11.5-15.5) % Chloride 108 H (98-107) mmol/L BUN 27 H (9-20) mg/dL Creatinine 1.36 H (0.66-1.25) mg/dL Glucose 121 H (74-99) mg/dL POC Glucose (mg/dL) 113 H 167 H (70-110) mg/dL Calcium 8.0 L (8.4-10.2) mg/dL Microbiology - Last 24 Hours (Table) 06/18/24 15:14 Blood Culture - Preliminary Blood Assessment and Plan Plan: Acute hypoxic respiratory failure, suspecting a gram-negative pneumonia with as the patient has a bilateral lower lobe pulmonary filtrates and previous bronchoscopy remarkable lavage yielded stenotrophomonas and Pseudomonas. Patient is currently on a BiPAP pressure of 16 over 5 cm of water with an FiO2 of 50%. Recent hospitalization for a CF exacerbation and a COVID-19 infection, Acuity of exacerbation secondary to above Previous hospitalization for a pseudomonal tracheobronchitis/pneumonia status post repeat bronchoscopy that was done on 06/03/2024 the patient is still on oral ciprofloxacin, currently on IV Zosyn. Repeat sputum sample and the bronchial lavage that was done on this patient showed stenotrophomonas. Oxygen dependent chronic obstructive pulmonary disease with an FEV1 value 39% of predicted Chronic tobacco dependence of greater than 60 years Right upper lobe PET avid pulmonary nodule which is being monitored on outpatient basis, measuring up to 1.4 cm in size, enlarging in size and the patient will need an SBRT at a later stage on outpatient basis. History of non-Hodgkin's lymphoma Chronic stage III kidney disease Coronary disease with previous coronary artery bypass surgery in 2001 History of abdominal aortic aneurysm status post stent placement in March 2022 Carotid stenosis status post endarterectomy History of ESBL E. coli and bronchial wash in 2021 Hyperlipidemia Hypertension Plan: Take the patient off the BiPAP and utilize Airvo Aggressive pulmonary toileting and chest PT Recollect sputum Continue IV Zosyn Add Bactrim Monitor renal function Continue bronchodilators Continue steroids and the patient is currently on IV Solu-Medrol Resume home medications Will continue to follow and the patient will be kept in the ICU for now.
[2024-06-22 16:30] LABS: Glucose,Whole Blood 361 mg/dL (70-110)
[2024-06-22 19:57] LABS: Glucose,Whole Blood 388 mg/dL (70-110)
[2024-06-23 06:13] LABS: Glucose,Whole Blood 385 mg/dL (70-110)
[2024-06-23 06:58] LABS: Basophils % (A) 0 %; Eosinophils % (A) 0 %; HCT 27.5 % (39.0-53.0); Lymphocytes # (A) 0.8 k/uL (1.0-4.8); Lymphocytes % (A) 15 %; MCH 30.1 pg (25.0-35.0); MCHC 32.6 g/dL (31.0-37.0); MCV 92.3 fL (80.0-100.0); Monocytes # (A) 0.2 k/uL (0-1.0); Monocytes % (A) 3 %; Neutrophils # (A) 4.3 k/uL (1.3-7.7); Neutrophils % (A) 80 %; Platelet Count 194 k/uL (150-450); RBC 2.98 m/uL (4.30-5.90); RDW 15.3 % (11.5-15.5); WBC 5.3 k/uL (3.8-10.6)
[2024-06-23 07:11] LABS: African American GFR (CKD) 63 (>60 ml/min/1.73 sqM); Anion Gap 6 mmol/L; Blood Urea Nitrogen 23 mg/dL (9-20); Calcium 7.7 mg/dL (8.4-10.2); Carbon Dioxide 26 mmol/L (22-30); Chloride 102 mmol/L (98-107); Glucose 334 mg/dL (74-99); Non-African American GFR(CKD) 55 (>60 ml/min/1.73 sqM); Potassium 3.9 mmol/L (3.5-5.1); Sodium 134 mmol/L (137-145)
--- NOTE | 2024-06-23 07:41 | XR ---
EXAMINATION TYPE: XR chest 1V portable DATE OF EXAM: 06/23/2024 COMPARISON: 06/22/2024 HISTORY: Respiratory failure TECHNIQUE: Single frontal view of the chest is obtained. FINDINGS: Emphysematous changes with postmedian sternotomy 2. Patchy bilateral perihilar and lower lobe infiltrates stable. No pleural effusion or pneumothorax. Osteopenia, degenerative change of the spine and arthropathy of the shoulders. IMPRESSION: COPD with patchy bilateral infiltrates stable. [facility], , 06/23/2024 7:39 AM
--- NOTE | 2024-06-23 11:29 | P.PN ---
Subjective Progress Note Date: 06/23/24 Hospital course 79 year old M with PMH of systolic CHF with EF 40 to 45%, COPD on 3L home O2, chronic kidney disease, hypertension, hyperlipidemia, non-Hodgkins lymphoma, CAD with CABG, AAA with stent, carotid stenosis with endarterectomy presents to the ED for shortness of breath. Apparently his O2 sat was in the 70s when EMS arrived on his 3L NC. Recently admitted from 06/05-06/07 for similar complaints, COVID + at that time, treated with bronchodilators, Zosyn, SoluMedrol and discharged on a Prednisone taper and to complete a course of Ciprofloxacin. He recently underwent bronchoscopy with BAL with Dr. Cano on 05/13 with cultures resulting in Pseudomonas and ariel albicans. He was started on Ciprofloxacin at that time. He underwent repeat bronchoscopy with BAL with Dr. Cano on 06/03 which grew stenotrophomonas maltophilia. He was continued on Ciprofloxacin and according to the patient has been taking it over the past 5-6 weeks. In the ED he underwent extensive evaluation. Tmax 100F, BP 119/62, HR 102, RR 40, 91% on 3L. CBC, Coag panel, CMP significant for RBC 4, Hg 12.4, Hct 35.8, PT 9.9, bicarb 33, BUN 39, Cr 1.91, glu 131. Lactic acid 2.9. Troponin 0.054. EKG sinus tachycardia with RBBB. CXR showed COPD with patchy interstitial densities increased from previous CXRs. Patient is admitted for further workup and management. Patient seen by pulmonology and started on IV Zosyn and Bactrim. Patient also on IV steroids. Patient was on BiPAP. Patient weaned down to Airvo. Patient seen this morning. He states that today he is breathing better. He states yesterday he was having a hard time breathing. Physical exam General examination - Alert and Oriented 3 in NAD Heart - + S1S2 no murmurs Lungs -diminished breath sounds bilaterally Abdomen soft NT ND +ve BS Extremities - No edema SIGNAL CONSTRUCTOR - Moving all 4 extremities spontaneously Psych - Calm and cooperative Assessment and plan Acute on chronic hypoxic respiratory failure likely from COVID sequelae versus possible pneumonia Sepsis versus SIRS on admission Acute on chronic COPD exacerbation Patient in the last month had BAL cultures that were positive for Pseudomonas and stenotrophomonas maltophilia Patient had completed a prolonged course of antibiotics Continue with Zosyn 3.75 g IV every 8 hours day 5 Continue with Bactrim single-stranded IV every 8 hours Patient currently on Airvo. Wean O2 as tolerated I reviewed pulmonology note from yesterday who had recommended to stop BiPAP and transition to Airvo. This morning WBC is 5.3. I reviewed sputum culture which is negative I reviewed blood culture which is negative I reviewed urine Legionella antigen which is negative I reviewed mycoplasma which is within normal limits Continue with Symbicort 2 INH BID. DuoNeb Q4H scheduled. Singulair 10 mg PO HS, SoluMedrol 60 mg IV Q6H. Elevated troponin Troponins are flat so ACS ruled out Continue with ASA 81 mg PO QD. Lipitor 40 mg PO QHS. Plavix 75 mg PO QD. Metoprolol 25 mg PO QD. 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 Today hemoglobin is 9.0. Yesterday hemoglobin was 10.0. I will hold off on Lovenox No overt signs of bleeding reported Chronic conditions Systolic CHF with EF 40-45%: Appears euvolemic. Hypertension: Metoprolol as above. Dyslipidemia: Lipitor as above. non-Hodgkins lymphoma CAD with CABG: ASA, Lipitor, Plavix, Metoprolol as above. AAA with stent: ASA, Lipitor, Plavix, Metoprolol as above. Carotid stenosis with endarterectomy: ASA, Lipitor, Plavix, as above. DVT prophylaxis: Holding Lovenox due to the anemia Anticipated discharge: Depending on clinical course Objective - Vital Signs Vital signs: Vital Signs Temp 97.9 F 06/23/24 08:25 Pulse 91 06/23/24 08:25 Resp 14 06/23/24 08:25 BP 108/64 06/23/24 08:25 Pulse Ox 93 L 06/23/24 08:25 FiO2 50 06/23/24 08:25 Intake & Output 06/22/24 06/23/24 06/23/24 18:59 06:59 18:59 Intake Total 240 360 Output Total 450 700 Balance -210 -700 360 Weight 68.9 kg Intake: Oral 240 360 Output: Urine 450 700 Other: Voiding Method Indwelling Catheter Indwelling Catheter Indwelling Catheter - Labs CBC & Chem 7: 06/23/24 06:35 06/23/24 06:35 Labs: Abnormal Lab Results - Last 24 Hours (Table) 06/22/24 06/22/24 06/22/24 Range/Units 11:58 16:29 19:55 RBC (4.30-5.90) m/uL Hgb (13.0-17.5) gm/dL Hct (39.0-53.0) % Lymphocytes # (1.0-4.8) k/uL Sodium (137-145) mmol/L BUN (9-20) mg/dL Glucose (74-99) mg/dL POC Glucose (mg/dL) 167 H 361 H 388 H (70-110) mg/dL Calcium (8.4-10.2) mg/dL 06/23/24 06/23/24 06/23/24 Range/Units 06:12 06:35 06:35 RBC 2.98 L (4.30-5.90) m/uL Hgb 9.0 L (13.0-17.5) gm/dL Hct 27.5 L (39.0-53.0) % Lymphocytes # 0.8 L (1.0-4.8) k/uL Sodium 134 L (137-145) mmol/L BUN 23 H (9-20) mg/dL Glucose 334 H (74-99) mg/dL POC Glucose (mg/dL) 385 H (70-110) mg/dL Calcium 7.7 L (8.4-10.2) mg/dL Microbiology - Last 24 Hours (Table) 06/22/24 15:30 Gram Stain - Preliminary Sputum 06/18/24 15:53 Legionella Culture - Preliminary Sputum
[2024-06-23 11:30] LABS: Glucose,Whole Blood 247 mg/dL (70-110)
[2024-06-23] MEDS: INSULIN ASPART (NovoLOG) 100 UNIT/ML VIAL SQ SCH (12:28)
--- NOTE | 2024-06-23 14:40 | P.PN ---
Subjective Progress Note Date: 06/22/24 Principal diagnosis: Reason for follow-up is pneumonia Patient is a 79-year-old male with a past medical history significant for non-Hodgkin lymphoma COPD hypertension hyperlipidemia heart failure recently diagnosed with a COVID-19 presented to hospital for evaluation of increasing shortness of breath and cough sputum production did have patient evaluated on the chest x-ray concerning for pneumonia. On today's evaluation that is 06/22/2024, the patient continues to be afebrile, the patient is on high flow Airvo 50% FiO2 and breathing slightly comfortably, the Pt denies having any chest pain or any worsening cough, the patient denies having any abdominal pain no vomiting or any diarrhea has been reported by the nursing staff. Patient white count normalized to 7.1, creatinine is 1.36 Objective - Vital Signs Vital signs: Vital Signs Temp 97.2 F L 06/22/24 08:00 Pulse 86 06/22/24 12:00 Resp 17 06/22/24 12:00 BP 111/71 06/22/24 12:00 Pulse Ox 96 06/22/24 12:00 FiO2 50 06/22/24 12:00 Intake & Output 06/21/24 06/22/24 06/22/24 18:59 06:59 18:59 Intake Total 650 600 Output Total 2375 400 Balance -1725 200 Weight 68.9 kg Intake: IV 650 600 Lactated Ringers 1,000 ml 450 600 @ 50 mls/hr IV .Q20H [facility] Rx#:[id number] Piperacillin-Tazobactam 3 200 .375 gm In Sodium Chloride 0.9% 100 ml @ 25 mls/hr IVPB Q8HR [facility] Rx# :[id number] Output: Urine 2375 400 Other: Voiding Method Indwelling Catheter Indwelling Catheter Indwelling Catheter - Exam GENERAL DESCRIPTION: An elderly male up in bed in no distress RESPIRATORY SYSTEM: Unlabored breathing , coarse breath sounds bilaterally HEART: S1 S2 regular rate and rhythm , ABDOMEN: Soft , no tenderness EXTREMITIES: No edema feet - Labs CBC & Chem 7: 06/23/24 06:35 06/23/24 06:35 Labs: Abnormal Lab Results - Last 24 Hours (Table) 06/21/24 06/21/24 06/22/24 Range/Units 16:19 21:29 04:25 RBC 3.23 L (4.30-5.90) m/uL Hgb 10.0 L D (13.0-17.5) gm/dL Hct 29.1 L (39.0-53.0) % RDW 16.0 H (11.5-15.5) % Chloride (98-107) mmol/L BUN (9-20) mg/dL Creatinine (0.66-1.25) mg/dL Glucose (74-99) mg/dL POC Glucose (mg/dL) 124 H 178 H (70-110) mg/dL Calcium (8.4-10.2) mg/dL 06/22/24 06/22/24 06/22/24 Range/Units 04:25 06:33 11:58 RBC (4.30-5.90) m/uL Hgb (13.0-17.5) gm/dL Hct (39.0-53.0) % RDW (11.5-15.5) % Chloride 108 H (98-107) mmol/L BUN 27 H (9-20) mg/dL Creatinine 1.36 H (0.66-1.25) mg/dL Glucose 121 H (74-99) mg/dL POC Glucose (mg/dL) 113 H 167 H (70-110) mg/dL Calcium 8.0 L (8.4-10.2) mg/dL Microbiology - Last 24 Hours (Table) 06/18/24 15:14 Blood Culture - Preliminary Blood 06/18/24 15:53 Gram Stain - Final Sputum Sputum Culture - Final Assessment and Plan (1) Pneumonia Current Visit: Yes Status: Acute Code(s): J18.9 - PNEUMONIA, UNSPECIFIED ORGANISM SNOMED Code(s): 592408647 (2) Sepsis Current Visit: No Status: Acute Code(s): A41.9 - SEPSIS, UNSPECIFIED ORGANIS M SNOMED Code(s): 91643538 Plan: 1patient presented to hospital with sepsis in this patient who did have fever tachycardia mild hypotension source is likely pneumonia in this patient who recently did have a COVID-19 will need to cover for resistant gram negative to be the likely etiology and the patient recently grew Pseudomonas in his BAL culture 2-blood cultures are so far negative initially sputum has been negative sputum culture has been repeated, urine for Legionella antigen was negative mycoplasma IgM not elevated 3-patient did have improvement in his respiratory status continue with Zosyn IV Bactrim has been added by pulmonary will watch kidney function closely Dictation was produced using [employer] dictation software. please excuse any grammatical, word or spelling errors. Time with Patient: Less than 30
--- NOTE | 2024-06-23 14:41 | P.PN ---
Subjective Progress Note Date: 06/23/24 Principal diagnosis: Reason for follow-up is pneumonia Patient is a 79-year-old male with a past medical history significant for non-Hodgkin lymphoma COPD hypertension hyperlipidemia heart failure recently diagnosed with a COVID-19 presented to hospital for evaluation of increasing shortness of breath and cough sputum production did have patient evaluated on the chest x-ray concerning for pneumonia. On today's evaluation that is 06/23/2024, Patient is afebrile patient is currently on 50% FiO2 through high flow nasal cannula Airvo and denies having any worsening shortness of breath, the patient denies any chest pain and denies any worsening cough or sputum production, the patient denies any nausea vomiting did not have any abdominal pain and no diarrhea. The patient white count is 5.3 creatinine is 1.24 Objective - Vital Signs Vital signs: Vital Signs Temp 98.2 F 06/23/24 11:38 Pulse 87 06/23/24 11:49 Resp 16 06/23/24 11:38 BP 130/73 06/23/24 11:38 Pulse Ox 96 06/23/24 11:52 FiO2 50 06/23/24 11:52 Intake & Output 06/22/24 06/23/24 06/23/24 18:59 06:59 18:59 Intake Total 240 360 Output Total 450 700 Balance -210 -700 360 Weight 68.9 kg Intake: Oral 240 360 Output: Urine 450 700 Other: Voiding Method Indwelling Catheter Indwelling Catheter Indwelling Catheter - Exam GENERAL DESCRIPTION: An elderly male up in bed in no distress RESPIRATORY SYSTEM: Unlabored breathing , coarse breath sounds bilaterally HEART: S1 S2 regular rate and rhythm , ABDOMEN: Soft , no tenderness EXTREMITIES: No edema feet - Labs CBC & Chem 7: 06/23/24 06:35 06/23/24 06:35 Labs: Abnormal Lab Results - Last 24 Hours (Table) 06/22/24 06/22/24 06/22/24 Range/Units 11:58 16:29 19:55 RBC (4.30-5.90) m/uL Hgb (13.0-17.5) gm/dL Hct (39.0-53.0) % Lymphocytes # (1.0-4.8) k/uL Sodium (137-145) mmol/L BUN (9-20) mg/dL Glucose (74-99) mg/dL POC Glucose (mg/dL) 167 H 361 H 388 H (70-110) mg/dL Calcium (8.4-10.2) mg/dL 06/23/24 06/23/24 06/23/24 Range/Units 06:12 06:35 06:35 RBC 2.98 L (4.30-5.90) m/uL Hgb 9.0 L (13.0-17.5) gm/dL Hct 27.5 L (39.0-53.0) % Lymphocytes # 0.8 L (1.0-4.8) k/uL Sodium 134 L (137-145) mmol/L BUN 23 H (9-20) mg/dL Glucose 334 H (74-99) mg/dL POC Glucose (mg/dL) 385 H (70-110) mg/dL Calcium 7.7 L (8.4-10.2) mg/dL 06/23/24 Range/Units 11:29 RBC (4.30-5.90) m/uL Hgb (13.0-17.5) gm/dL Hct (39.0-53.0) % Lymphocytes # (1.0-4.8) k/uL Sodium (137-145) mmol/L BUN (9-20) mg/dL Glucose (74-99) mg/dL POC Glucose (mg/dL) 247 H (70-110) mg/dL Calcium (8.4-10.2) mg/dL Microbiology - Last 24 Hours (Table) 06/22/24 15:30 Gram Stain - Preliminary Sputum Sputum Culture - Preliminary 06/18/24 15:53 Legionella Culture - Preliminary Sputum Assessment and Plan (1) Pneumonia Current Visit: Yes Status: Acute Code(s): J18.9 - PNEUMONIA, UNSPECIFIED ORGANISM SNOMED Code(s): 074323228 (2) Sepsis Current Visit: No Status: Acute Code(s): A41.9 - SEPSIS, UNSPECIFIED ORGANISM SNOMED Code(s): 07678742 Plan: 1patient presented to hospital with sepsis in this patient who did have fever tachycardia mild hypotension source is likely pneumonia in this patient who recently did have a COVID-19 will need to cover for resistant gram negative to be the likely etiology and the patient recently grew Pseudomonas in his BAL culture 2-blood cultures are so far negative initially sputum has been negative sputum culture has been repeated, urine for Legionella antigen was negative mycoplasma IgM not elevated 3-patient did have some improvement increase respiratory status requiring less oxygen, repeat cultures are pending 4patient to continue with Zosyn and IV Bactrim while watching kidney function closely Dictation was produced using [employer] dictation software. please excuse any gram matical, word or spelling errors. Time with Patient: Less than 30
--- NOTE | 2024-06-23 14:44 | P.PN ---
Subjective Progress Note Date: 06/23/24 On 06/22/2024, the patient is being seen for a follow-up. This morning, the patient is on a BiPAP pressure of 16 over 5 cm of water with FiO2 of 60% and the patient is on a lactated Ringer at rate of 50 cc an hour. Chest x-ray was done this morning and it showed patchy infiltrates in lung bases more so on the right consistent with pneumonia. Most recent bronchoscopy yielded stenotrophomonas and the patient has grown Pseudomonas in the past. The patient is currently on IV Zosyn. He remains on DuoNeb nebulized treatments [id number]. He is on Symbicort. He is on IV Solu-Medrol. He is awake and alert and communicating. The white cell count is at 7 with hemoglobin of 10 and platelet count of 189. BUN is 27 with a creatinine of 1.36 and a sodium levels at 138. He is weak and quite debilitated on a chronic basis. Bactrim will be also added to his regimen. On 06/23/2024, the patient is still on Airvo at 35 L with an FiO2 of 50% with a pulse ox of 96%. Feels somewhat improved compared to yesterday. Continues to have a congested cough with limited amount of sputum production. Antibiotic modification was done yesterday and the patient is currently on a combination of Zosyn and IV Bactrim. Renal function remained stable. On today's blood work, the creatinine is at 1.24 with a BUN of 23. Rest of the electrolytes are all stable and within normal limits. White cell count of 5.3 with a hemoglobin of 9. A repeat chest x-ray from today shows some bibasilar pulmonary filtrates slightly worse on the left along with background COPD. Remains on bronchodilators. Remains on steroids. Remains on lactated Ringer at 50 cc an hour. Remains on Symbicort and DuoNeb updrafts [id number]. Home medications have been also resumed. Objective - Vital Signs Vital signs: Vital Signs Temp 97.9 F 06/23/24 08:25 Pulse 91 06/23/24 08:25 Resp 14 06/23/24 08:25 BP 108/64 06/23/24 08:25 Pulse Ox 93 L 06/23/24 08:25 FiO2 50 06/23/24 08:25 Intake & Output 06/22/24 06/23/24 06/23/24 18:59 06:59 18:59 Intake Total 240 360 Output Total 450 700 Balance -210 -700 360 Weight 68.9 kg Intake: Oral 240 360 Output: Urine 450 700 Other: Voiding Method Indwelling Catheter Indwelling Catheter Indwelling Catheter - Exam Patient is calm and comfortable, communicating while being on a BiPAP currently on BiPAP, pressures of 16 over 5 cm of water HEENT examination is grossly unremarkable. Mucous membranes are moist. No oral lesions. Neck supple. Full range of motion. No adenopathy thyromegaly or neck vein distention. Cardiovascular examination reveals regular rhythm rate. S1-S2 normal. No S3 or S4. No discernible murmur noted. Heart sounds are distant. Lungs reveal scattered bilateral rhonchi and expiratory wheezes. No crackles. Breath sounds equal but diminished throughout. Abdomen soft and without bowel sounds. No masses or tenderness. Extremities are intact. No cyanosis clubbing or edema. Skin is without rash or lesion. Neurologic examination is brief but nonfocal. - Labs CBC & Chem 7: 06/23/24 06:35 06/23/24 06:35 Labs: Abnormal Lab Results - Last 24 Hours (Table) 06/22/24 06/22/24 06/22/24 Range/Units 11:58 16:29 19:55 RBC (4.30-5.90) m/uL Hgb (13.0-17.5) gm/dL Hct (39.0-53.0) % Lymphocytes # (1.0-4.8) k/uL Sodium (137-145) mmol/L BUN (9-20) mg/dL Glucose (74-99) mg/dL POC Glucose (mg/dL) 167 H 361 H 388 H (70-110) mg/dL Calcium (8.4-10.2) mg/dL 06/23/24 06/23/24 06/23/24 Range/Units 06:12 06:35 06:35 RBC 2.98 L (4.30-5.90) m/uL Hgb 9.0 L (13.0-17.5) gm/dL Hct 27.5 L (39.0-53.0) % Lymphocytes # 0.8 L (1.0-4.8) k/uL Sodium 134 L (137-145) mmol/L BUN 23 H (9-20) mg/dL Glucose 334 H (74-99) mg/dL POC Glucose (mg/dL) 385 H (70-110) mg/dL Calcium 7.7 L (8.4-10.2) mg/dL Microbiology - Last 24 Hours (Table) 06/22/24 15:30 Gram Stain - Preliminary Sputum 06/18/24 15:53 Legionella Culture - Preliminary Sputum Assessment and Plan Plan: Acute hypoxic respiratory failure, suspecting a gram-negative pneumonia with as the patient has a bilateral lower lobe pulmonary filtrates and previous bronchoscopy remarkable lavage yielded stenotrophomonas and Pseudomonas. P elen is currently off BiPAP on Airvo with 30 L and FiO2 of 50%. Overall respiratory status is stable and the patient is currently on a combination of Zosyn and Bactrim. Recent hospitalization for a COPD exacerbation and a COVID-19 infection, Acuity of exacerbation secondary to above Previous hospitalization for a pseudomonal tracheobronchitis/pneumonia status post repeat bronchoscopy that was done on 06/03/2024 the patient is still on oral ciprofloxacin, currently on IV Zosyn. Repeat sputum sample and the bronchial lavage that was done on this patient showed stenotrophomonas. Oxygen dependent chronic obstructive pulmonary disease with an FEV1 value 39% of predicted Chronic tobacco dependence of greater than 60 years Right upper lobe PET avid pulmonary nodule which is being monitored on outpatient basis, measuring up to 1.4 cm in size, enlarging in size and the patient will need an SBRT at a later stage on outpatient basis. History of non-Hodgkin's lymphoma Chronic stage III kidney disease Coronary disease with previous coronary artery bypass surgery in 2001 History of abdominal aortic aneurysm status post stent placement in March 2022 Carotid stenosis status post endarterectomy History of ESBL E. coli and bronchial wash in 2021 Hyperlipidemia Hypertension Plan: Continue Airvo and titrate the FiO2 Aggressive pulmonary toileting and chest PT Recollect sputum sample if possible Continue IV Zosyn and Bactrim Monitor renal function Continue bronchodilators Continue steroids and the patient is currently on IV Solu-Medrol Resume home medications Chest x-ray was noted Will continue to follow
[2024-06-23 16:41] LABS: Glucose,Whole Blood 232 mg/dL (70-110)
[2024-06-23] MEDS: NYSTATIN 100,000 UNIT/ML SUSP 500,000 UNIT/5 ML CUP PO SCH (17:32)
[2024-06-23 19:50] LABS: Glucose,Whole Blood 133 mg/dL (70-110)
[2024-06-23] MEDS: IPRATROPIUM-ALBUTEROL 3 ML NEB INHALATION PRN (23:18)
[2024-06-24 06:16] LABS: Glucose,Whole Blood 240 mg/dL (70-110)
[2024-06-24 06:44] LABS: Basophils % (A) 0 %; Eosinophils % (A) 0 %; HCT 25.9 % (39.0-53.0); HGB 8.6 gm/dL (13.0-17.5); Lymphocytes # (A) 0.8 k/uL (1.0-4.8); Lymphocytes % (A) 10 %; MCHC 33.1 g/dL (31.0-37.0); MCV 93.9 fL (80.0-100.0); Mean Platelet Volume 9.2; Monocytes # (A) 0.2 k/uL (0-1.0); Monocytes % (A) 3 %; Neutrophils # (A) 6.9 k/uL (1.3-7.7); Neutrophils % (A) 85 %; Platelet Count 142 k/uL (150-450); RBC 2.76 m/uL (4.30-5.90); RDW 15.2 % (11.5-15.5); WBC 8.1 k/uL (3.8-10.6)
[2024-06-24 06:51] LABS: African American GFR (CKD) 64 (>60 ml/min/1.73 sqM); Anion Gap 3 mmol/L; Blood Urea Nitrogen 25 mg/dL (9-20); Carbon Dioxide 24 mmol/L (22-30); Chloride 106 mmol/L (98-107); Glucose 221 mg/dL (74-99); Non-African American GFR(CKD) 56 (>60 ml/min/1.73 sqM); Potassium 4.3 mmol/L (3.5-5.1); Sodium 133 mmol/L (137-145)
--- NOTE | 2024-06-24 10:41 | P.PN ---
Subjective Progress Note Date: 06/24/24 Hospital course 79 year old M with PMH of systolic CHF with EF 40 to 45%, COPD on 3L home O2, chronic kidney disease, hypertension, hyperlipidemia, non-Hodgkins lymphoma, CAD with CABG, AAA with stent, carotid stenosis with endarterectomy presents to the ED for shortness of breath. Apparently his O2 sat was in the 70s when EMS arrived on his 3L NC. Recently admitted from 06/05-06/07 for similar complaints, COVID + at that time, treated with bronchodilators, Zosyn, SoluMedrol and discharged on a Prednisone taper and to complete a course of Ciprofloxacin. He recently underwent bronchoscopy with BAL with Dr. Cano on 05/13 with cultures resulting in Pseudomonas and ariel albicans. He was started on Ciprofloxacin at that time. He underwent repeat bronchoscopy with BAL with Dr. Cano on 06/03 which grew stenotrophomonas maltophilia. He was continued on Ciprofloxacin and according to the patient has been taking it over the past 5-6 weeks. In the ED he underwent extensive evaluation. Tmax 100F, BP 119/62, HR 102, RR 40, 91% on 3L. CBC, Coag panel, CMP significant for RBC 4, Hg 12.4, Hct 35.8, PT 9.9, bicarb 33, BUN 39, Cr 1.91, glu 131. Lactic acid 2.9. Troponin 0.054. EKG sinus tachycardia with RBBB. CXR showed COPD with patchy interstitial densities increased from previous CXRs. Patient is admitted for further workup and management. Patient seen by pulmonology and started on IV Zosyn and Bactrim. Patient also on IV steroids. Patient was on BiPAP. Patient weaned down to Airvo. Patient states that this morning he was feeling short of breath. 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 Wean O2 as tolerated This morning WBC is 8.1. I reviewed infectious disease note who recommended to continue with the antibiotics follow-up on cultures The sputum cultures from 06/18/2024 is negative to date The sputum culture from 06/22/2024 is also negative to date Continue with Symbicort 2 INH BID. DuoNeb Q4H scheduled. Singulair 10 mg PO HS, SoluMedrol 60 mg IV Q6H. Elevated troponin Troponins are flat so ACS ruled out Continue with ASA 81 mg PO QD. Lipitor 40 mg PO QHS. Plavix 75 mg PO QD. Metoprolol 25 mg PO QD. 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 Stable Lactic acidosis Resolved Acute blood loss anemia Patient's hemoglobin has been trending down. Today hemoglobin is 8.6 which is still trending down I will hold off on Lovenox No overt signs of bleeding reported Patient at this time is too unstable for any endoscopic procedures Chronic conditions Systolic CHF with EF 40-45%: Appears euvolemic. Hypertension: Metoprolol as above. Dyslipidemia: Lipitor as above. non-Hodgkins lymphoma CAD with CABG: ASA, Lipitor, Plavix, Metoprolol as above. AAA with stent: ASA, Lipitor, Plavix, Metoprolol as above. Carotid stenosis with endarterectomy: ASA, Lipitor, Plavix, as above. DVT prophylaxis: Holding Lovenox due to the anemia Anticipated discharge: Depending on clinical course Poor prognosis Objective - Vital Signs Vital signs: Vital Signs Temp 98.4 F 06/24/24 08:01 Pulse 88 06/24/24 08:43 Resp 25 H 06/24/24 08:01 BP 134/72 06/24/24 08:01 Pulse Ox 91 L 06/24/24 08:01 FiO2 56 06/24/24 08:26 Intake & Output 06/23/24 06/24/24 06/24/24 18:59 06:59 18:59 Intake Total 720 Output Total 1500 1100 Balance -780 -1100 Weight 68.9 kg Intake: Oral 720 Output: Urine 1500 1100 Uretheral (Rojas) 500 500 Other: Voiding Method Indwelling Catheter Indwelling Catheter # Bowel Movements 1 - Labs CBC & Chem 7: 06/24/24 06:18 06/24/24 06:18 Labs: Abnormal Lab Results - Last 24 Hours (Table) 06/23/24 06/23/24 06/23/24 Range/Units 11:29 16:40 19:37 RBC (4.30-5.90) m/uL Hgb (13.0-17.5) gm/dL Hct (39.0-53.0) % Plt Count (150-450) k/uL Lymphocytes # (1.0-4.8) k/uL Sodium (137-145) mmol/L BUN (9-20) mg/dL Glucose (74-99) mg/dL POC Glucose (mg/dL) 247 H 232 H 133 H (70-110) mg/dL Calcium (8.4-10.2) mg/dL 06/24/24 06/24/24 06/24/24 Range/Units 05:58 06:18 06:18 RBC 2.76 L (4.30-5.90) m/uL Hgb 8.6 L (13.0-17.5) gm/dL Hct 25.9 L (39.0-53.0) % Plt Count 142 L (150-450) k/uL Lymphocytes # 0.8 L (1.0-4.8) k/uL Sodium 133 L (137-145) mmol/L BUN 25 H (9-20) mg/dL Glucose 221 H (74-99) mg/dL POC Glucose (mg/dL) 240 H (70-110) mg/dL Calcium 8.0 L (8.4-10.2) mg/dL Microbiology - Last 24 Hours (Table) 06/18/24 15:14 Blood Culture - Final Blood 06/22/24 15:30 Gram Stain - Preliminary Sputum Sputum Culture - Preliminary
[2024-06-24 12:00] LABS: Glucose,Whole Blood 105 mg/dL (70-110)
[2024-06-24] MEDS ORDERED: KETAMINE HCL IN 0.9 % NACL 50 MG/5 ML SYRINGE ONE (14:55)
[2024-06-24] MEDS ORDERED: PROPOFOL 10 MG/ML 20 ML VIAL IV ONE (14:55)
[2024-06-24] MEDS ORDERED: MIDAZOLAM 2 MG/2 ML VIAL ONE (14:55)
[2024-06-24] MEDS: IV FLUID CONTINUATION 400 ML IV ONE (15:07)
[2024-06-24] MEDS: IV FLUID CONTINUATION 800 ML IV ONE (15:37)
--- NOTE | 2024-06-24 16:32 | P.PN ---
Subjective Progress Note Date: 06/24/24 On 06/22/2024, the patient is being seen for a follow-up. This morning, the patient is on a BiPAP pressure of 16 over 5 cm of water with FiO2 of 60% and the patient is on a lactated Ringer at rate of 50 cc an hour. Chest x-ray was done this morning and it showed patchy infiltrates in lung bases more so on the right consistent with pneumonia. Most recent bronchoscopy yielded stenotrophomonas and the patient has grown Pseudomonas in the past. The patient is currently on IV Zosyn. He remains on DuoNeb nebulized treatments [id number]. He is on Symbicort. He is on IV Solu-Medrol. He is awake and alert and communicating. The white cell count is at 7 with hemoglobin of 10 and platelet count of 189. BUN is 27 with a creatinine of 1.36 and a sodium levels at 138. He is weak and quite debilitated on a chronic basis. Bactrim will be also added to his regimen. On 06/23/2024, the patient is still on Airvo at 35 L with an FiO2 of 50% with a pulse ox of 96%. Feels somewhat improved compared to yesterday. Continues to have a congested cough with limited amount of sputum production. Antibiotic modification was done yesterday and the patient is currently on a combination of Zosyn and IV Bactrim. Renal function remained stable. On today's blood work, the creatinine is at 1.24 with a BUN of 23. Rest of the electrolytes are all stable and within normal limits. White cell count of 5.3 with a hemoglobin of 9. A repeat chest x-ray from today shows some bibasilar pulmonary filtrates slightly worse on the left along with background COPD. Remains on bronchodilators. Remains on steroids. Remains on lactated Ringer at 50 cc an hour. Remains on Symbicort and DuoNeb updrafts [id number]. Home medications have been also resumed. 06/24/2024, the patient remains on Airvo 35 L with an FiO2 of 55%. The patient continues to have respiratory difficulties, cough, congestion, unable to bring up much of sputum. No significant improvement in respiratory status over the past 24 hours. The patient remains on a combination of IV Bactrim and IV Zosyn. The white cell count is at 8.1. Hemoglobin is 8.6 and a platelet count of 142. BUN is 25 with a creatinine of 1.22. He is getting progressively more debilitated and weak. Spending most of the time in bed. Oral intake is diminished and the patient had minimal amount of old. Earlier this morning. I plan to do a bronchoscopy on this patient in the afternoon to further optimize her respiratory status. Suspect mucous plugs. Objective - Vital Signs Vital signs: Vital Signs Temp 98.4 F 06/24/24 08:01 Pulse 92 06/24/24 11:31 Resp 25 H 06/24/24 10:14 BP 134/72 06/24/24 08:01 Pulse Ox 91 L 06/24/24 08:01 FiO2 56 06/24/24 11:23 Intake & Output 06/23/24 06/24/24 06/24/24 18:59 06:59 18:59 Intake Total 720 Output Total 1500 1100 300 Balance -780 -1100 -300 Weight 68.9 kg Intake: Oral 720 Output: Urine 1500 1100 300 Uretheral (Rojas) 500 500 300 Other: Voiding Method Indwelling Catheter Indwelling Catheter Indwelling Catheter # Bowel Movements 1 - Exam Patient is calm and comfortable, communicating , currently on Airvo 35 L and FiO2 of 55%, breathing is mildly labored HEENT examination is grossly unremarkable. Mucous membranes are moist. No oral lesions. Neck supple. Full range of motion. No adenopathy thyromegaly or neck vein distention. Cardiovascular examination reveals regular rhythm rate. S1-S2 normal. No S3 or S4. No discernible murmur noted. Heart sounds are distant. Lungs reveal scattered bilateral rhonchi and expiratory wheezes. No crackles. Breath sounds equal but diminished throughout. Abdomen soft and without bowel sounds. No masses or tenderness. Extremities are intact. No cyanosis clubbing or edema. Skin is without rash or lesion. Neurologic examination is brief but nonfocal. - Labs CBC & Chem 7: 06/24/24 06:18 06/24/24 06:18 Labs: Abnormal Lab Results - Last 24 Hours (Table) 06/23/24 06/23/24 06/24/24 Range/Units 16:40 19:37 05:58 RBC (4.30-5.90) m/uL Hgb (13.0-17.5) gm/dL Hct (39.0-53.0) % Plt Count (150-450) k/uL Lymphocytes # (1.0-4.8) k/uL Sodium (137-145) mmol/L BUN (9-20) mg/dL Glucose (74-99) mg/dL POC Glucose (mg/dL) 232 H 133 H 240 H (70-110) mg/dL Calcium (8.4-10.2) mg/dL 06/24/24 06/24/24 Range/Units 06:18 06:18 RBC 2.76 L (4.30-5.90) m/uL Hgb 8.6 L (13.0-17.5) gm/dL Hct 25.9 L (39.0-53.0) % Plt Count 142 L (150-450) k/uL Lymphocytes # 0.8 L (1.0-4.8) k/uL Sodium 133 L (137-145) mmol/L BUN 25 H (9-20) mg/dL Glucose 221 H (74-99) mg/dL POC Glucose (mg/dL) (70-110) mg/dL Calcium 8.0 L (8.4-10.2) mg/dL Microbiology - Last 24 Hours (Table) 06/18/24 15:14 Blood Culture - Final Blood 06/22/24 15:30 Gram Stain - Preliminary Sputum Sputum Culture - Preliminary Assessment and Plan Plan: Acute hypoxic respiratory failure, suspecting a gram-negative pneumonia with as the patient has a bilateral lower lobe pulmonary filtrates and previous bronch oscopy remarkable lavage yielded stenotrophomonas and Pseudomonas. Patient is currently off BiPAP on Airvo with 35 L with FiO2 of 55 %. Overall respiratory status is stable and the patient is currently on a combination of Zosyn and Bactrim. Recurrent respiratory tract infection/pneumonia and the patient continues to lower lobe consolidation previous culture showing gram-negative bacterial infec tion including stenotrophomonas. Suspect ongoing mucous plugging, leading to shortness of breath Recent hospitalization for a COPD exacerbation and a COVID-19 infection, Acuity of exacerbation secondary to above Previous hospitalization for a pseudomonal tracheobronchitis/pneumonia status post repeat bronchoscopy that was done on 06/03/2024 the patient is still on oral ciprofloxacin, currently on IV Zosyn. Repeat sputum sample and the bronchial lavage that was done on this patient showed stenotrophomonas. Oxygen dependent chronic obstructive pulmonary disease with an FEV1 value 39% of predicted Chronic tobacco dependence of greater than 60 years Right upper lobe PET avid pulmonary nodule which is being monitored on outpatient basis, measuring up to 1.4 cm in size, enlarging in size and the patient will need an SBRT at a later stage on outpatient basis. History of non-Hodgkin's lymphoma Chronic stage III kidney disease Coronary disease with previous coronary artery bypass surgery in 2001 History of abdominal aortic aneurysm status post stent placement in March 2022 Carotid stenosis status post endarterectomy History of ESBL E. coli and bronchial wash in 2021 Hyperlipidemia Hypertension Plan: Continue Airvo and titrate the FiO2 Aggressive pulmonary toileting and chest PT Will plan to do another bronchoscopy endobronchial lavage and therapeutic airway suctioning mucous plugs this afternoon Continue IV Zosyn and Bactrim Monitor renal function Continue bronchodilators Continue steroids and the patient is currently on IV Solu-Medrol Resume home medications Chest x-ray was noted Will continue to follow
--- NOTE | 2024-06-24 16:35 | P.PCN ---
Date of Procedure: 06/24/24 Operative Findings: Preoperative Diagnosis: Pseudomonal/stenotrophomonas pneumonia in addition to recent infection with COVID-19 Postoperative Diagnosis: Tracheobronchomalacia Copious thick respiratory secretions, mucous plugging Procedure(s) Performed: Bronchoscopy and the bronchoalveolar lavage of the lingula Anesthesia: MARIA INES Surgeon: Neli Cano Estimated Blood Loss (ml): 0 Pathology: other Condition: stable Disposition: same day Operative Findings: This is a flexor bronchoscopy that was done in the endoscopy suite. The patient has history of gram-negative pneumonia treated with IV antibiotics with a combination of Bactrim and Zosyn. He continues to have some cough and congestion for that reason a another bronchoscopy was done for therapeutic airway suctioning and bronchial lavage This procedure was done under conscious sedation. Anesthetic agent was administered by anesthesia at the bedside After achieving adequate sedation, the flexor bronchoscope was inserted through the right nostril and it was advanced to the posterior pharynx. Note that the nasal passages on both sides were quite extensively plugged with thick mucus and after achieving nasal patency with a frequent suctioning, it was noted the patient also has a septal deviation. Examination of the upper airway structures including posterior pharynx, larynx, epiglottis, vallecula and the vocal cords were all within normal limits. A total of 2 cc of 1% lidocaine was applied to the vocal cord and following that the bronchoscope was advanced into the upper trachea. There was evidence of tracheobronchomalacia. There was evidence of thick and copious respiratory secretions. Respiratory secretions are essentially pulling in the lower lobes bilaterally more so on the right lower lobe. The bronchial mucosa had shown some mild mucosal inflammatory changes s pecially on the left. Inspected airways included trachea, bilateral mainstem bronchi, right upper lobe bronchus, bronchus and medius, right middle lobe bronchus, right lower lobe bronchus, there is 10 segments on the right, examination of the left side included left mainstem bronchus, left upper lobe bronchus and left lower lobe bronchus and the various 8 segments on the left. Therapeutic airway suctioning was done.. Those were irrigated with saline. The bronchial lavage of the lingula was done with a total of 40 cc of fluid was infused and 15 cc was suctioned back and aspirate was nonbloody.. Therapeutic airway suctioning was done. After achieving adequate pulmonary toileting, the majority of respite secretions were suctioned out and the bronchoscope was removed and the patient was transferred to recovery in a stable condition.
[2024-06-24 17:03] LABS: Glucose,Whole Blood 204 mg/dL (70-110)
[2024-06-24 20:02] LABS: Glucose,Whole Blood 223 mg/dL (70-110)
[2024-06-25 06:11] LABS: Glucose,Whole Blood 238 mg/dL (70-110)
[2024-06-25 07:28] LABS: Basophils % (A) 0 %; Eosinophils % (A) 0 %; HCT 29.3 % (39.0-53.0); HGB 9.5 gm/dL (13.0-17.5); Lymphocytes # (A) 0.7 k/uL (1.0-4.8); Lymphocytes % (A) 10 %; MCH 30.6 pg (25.0-35.0); MCHC 32.4 g/dL (31.0-37.0); MCV 94.4 fL (80.0-100.0); Mean Platelet Volume 8.9; Monocytes # (A) 0.2 k/uL (0-1.0); Monocytes % (A) 3 %; Neutrophils # (A) 6.2 k/uL (1.3-7.7); Neutrophils % (A) 84 %; Platelet Count 197 k/uL (150-450); RDW 15.2 % (11.5-15.5); WBC 7.4 k/uL (3.8-10.6)
[2024-06-25 07:37] LABS: African American GFR (CKD) 73 (>60 ml/min/1.73 sqM); Anion Gap 4 mmol/L; Blood Urea Nitrogen 25 mg/dL (9-20); Calcium 8.1 mg/dL (8.4-10.2); Carbon Dioxide 28 mmol/L (22-30); Chloride 104 mmol/L (98-107); Glucose 226 mg/dL (74-99); Non-African American GFR(CKD) 63 (>60 ml/min/1.73 sqM); Potassium 4.5 mmol/L (3.5-5.1); Sodium 136 mmol/L (137-145)
--- NOTE | 2024-06-25 07:48 | XR ---
EXAMINATION TYPE: XR chest 1V portable DATE OF EXAM: 06/25/2024 7:04 AM CLINICAL INDICATION: Male, 79 years old with history of bronch; COMPARISON: Chest radiographs from 06/23/2024. TECHNIQUE: XR chest 1V portable Frontal view of the chest. FINDINGS: Lungs/Pleura: There is no evidence of pleural effusion, focal consolidation, or pneumothorax. Pulmonary vascularity: Unremarkable. Heart/mediastinum: Cardiomediastinal silhouette is enlarged. Atherosclerotic calcifications are seen in the aorta. Musculoskeletal: No acute osseous pathology. Midline sternotomy wires are noted. IMPRESSION: Scattered airspace opacities in the lung bases which may be mildly increased from 10/24/2023. Possibly secondary to positioning/technique. Correlate for pulmonary vascular congestion versus developing ai rspace disease. [facility], , 06/25/2024 7:45 AM
--- NOTE | 2024-06-25 10:26 | P.PN ---
Subjective Progress Note Date: 06/25/24 Hospital course 79 year old M with PMH of systolic CHF with EF 40 to 45%, COPD on 3L home O2, chronic kidney disease, hypertension, hyperlipidemia, non-Hodgkins lymphoma, CAD with CABG, AAA with stent, carotid stenosis with endarterectomy presents to the ED for shortness of breath. Apparently his O2 sat was in the 70s when EMS arrived on his 3L NC. Recently admitted from 06/05-06/07 for similar complaints, COVID + at that time, treated with bronchodilators, Zosyn, SoluMedrol and discharged on a Prednisone taper and to complete a course of Ciprofloxacin. He recently underwent bronchoscopy with BAL with Dr. Cano on 05/13 with cultures resulting in Pseudomonas and eden albicans. He was started on Ciprofloxacin at that time. He underwent repeat bronchoscopy with BAL with Dr. Cano on 06/03 which grew stenotrophomonas maltophilia. He was continued on Ciprofloxacin and according to the patient has been taking it over the past 5-6 weeks. In the ED he underwent extensive evaluation. Tmax 100F, BP 119/62, HR 102, RR 40, 91% on 3L. CBC, Coag panel, CMP significant for RBC 4, Hg 12.4, Hct 35.8, PT 9.9, bicarb 33, BUN 39, Cr 1.91, glu 131. Lactic acid 2.9. Troponin 0.054. EKG sinus tachycardia with RBBB. CXR showed COPD with patchy interstitial densities increased from previous CXRs. Patient is admitted for further workup and management. Patient seen by pulmonology and started on IV Zosyn and Bactrim. Patient also on IV steroids. Patient was on BiPAP. Patient weaned down to Airvo. Patient had another bronchoscopy done on 06/24/2024 that showed tracheobronchomalacia with copious thick respirations and mucous plugging. Patient states that this morning he was feeling short of breath. Physical exam General examination - Alert and Oriented 3 in NAD Heart - + S1S2 no murmurs Lungs -diminished breath sounds bilaterally Abdomen soft NT ND +ve BS Extremities - No edema TORPEDO SPECIALIST - Moving all 4 extremities spontaneously Psych - Calm and cooperative Assessment and plan Acute on chronic hypoxic respiratory failure likely from COVID sequelae versus possible pneumonia Sepsis versus SIRS on admission Acute on chronic COPD exacerbation Patient in the last month had BAL cultures that were positive for Pseudomonas and stenotrophomonas maltophilia Patient had completed a prolonged course of antibiotics Continue with Zosyn 3.75 g IV every 8 hours day 7 Continue with Bactrim single-stranded IV every 8 hours day 4 Patient currently on Airvo. Wean O2 as tolerated This morning WBC is 8.1. The sputum cultures from 06/18/2024 is negative to date The sputum culture from 06/22/2024 grew Eden albicans and stenotrophomonas Maltophilia ID managing antibiotics I reviewed bronchoscopy done on 06/24/2024 that showed tracheobronchomalacia and copious thick respirations and mucous plugging. Follow-up on cultures from bronchoscopy Continue with Symbicort 2 INH BID. DuoNeb Q4H scheduled. Singulair 10 mg PO HS, SoluMedrol 60 mg IV Q6H. Elevated troponin Troponins are flat so ACS ruled out Continue with ASA 81 mg PO QD. Lipitor 40 mg PO QHS. Plavix 75 mg PO QD. Metoprolol 25 mg PO QD. 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 Stable Lactic acidosis Resolved Acute blood loss anemia Patient's hemoglobin was trending down so I discontinued the subcu Lovenox for DVT prophylaxis Today hemoglobin is 9.5 and uptrending Patient at this time is too unstable for any endoscopic procedures Chronic conditions Systolic CHF with EF 40-45%: Appears euvolemic. Hypertension: Metoprolol as above. Dyslipidemia: Lipitor as above. non-Hodgkins lymphoma CAD with CABG: ASA, Lipitor, Plavix, Metoprolol as above. AAA with stent: ASA, Lipitor, Plavix, Metoprolol as above. Carotid stenosis with endarterectomy: ASA, Lipitor, Plavix, as above. DVT prophylaxis: Holding Lovenox due to the anemia Anticipated discharge: Depending on clinical course Poor prognosis Objective - Vital Signs Vital signs: Vital Signs Temp 97.6 F 06/25/24 07:57 Pulse 72 06/25/24 08:05 Resp 20 06/25/24 07:57 BP 146/70 06/25/24 07:57 Pulse Ox 96 06/25/24 07:57 FiO2 85 06/25/24 07:46 Intake & Output 06/24/24 06/25/24 06/25/24 18:59 06:59 18:59 Intake Total 638 Output Total 3500 2300 Balance -2862 -2300 Intake: IV 500 Intake, IV Titration 20 Amount Piperacillin-Tazobactam 3 20 .375 gm In Sodium Chloride 0.9% 100 ml @ 25 mls/hr IVPB Q8HR [facility] Rx# :[id number] Oral 118 Output: Urine 3500 2300 Uretheral (Rojas) 1400 1100 Other: Voiding Method Indwelling Catheter Indwelling Catheter Indwelling Catheter - Labs CBC & Chem 7: 06/25/24 06:45 06/25/24 06:45 Labs: Abnormal Lab Results - Last 24 Hours (Table) 06/24/24 06/24/24 06/25/24 Range/Units 17:00 20:00 06:07 RBC (4.30-5.90) m/uL Hgb (13.0-17.5) gm/dL Hct (39.0-53.0) % Lymphocytes # (1.0-4.8) k/uL Sodium (137-145) mmol/L BUN (9-20) mg/dL Glucose (74-99) mg/dL POC Glucose (mg/dL) 204 H 223 H 238 H (70-110) mg/dL Calcium (8.4-10.2) mg/dL 06/25/24 06/25/24 Range/Units 06:45 06:45 RBC 3.10 L (4.30-5.90) m/uL Hgb 9.5 L (13.0-17.5) gm/dL Hct 29.3 L (39.0-53.0) % Lymphocytes # 0.7 L (1.0-4.8) k/uL Sodium 136 L (137-145) mmol/L BUN 25 H (9-20) mg/dL Glucose 226 H (74-99) mg/dL POC Glucose (mg/dL) (70-110) mg/dL Calcium 8.1 L (8.4-10.2) mg/dL Microbiology - Last 24 Hours (Table) 06/24/24 15:00 Gram Stain - Preliminary Bronchial Washings - Random 06/22/24 15:30 Gram Stain - Preliminary Sputum Sputum Culture - Preliminary Fungus Isolated Stenotrophomonas maltophilia Eden albicans
--- NOTE | 2024-06-25 14:32 | P.PN ---
Subjective Progress Note Date: 06/24/24 Principal diagnosis: Reason for follow-up is pneumonia Patient is a 79-year-old male with a past medical history significant for non-Hodgkin lymphoma COPD hypertension hyperlipidemia heart failure recently diagnosed with a COVID-19 presented to hospital for evaluation of increasing shortness of breath and cough sputum production did have patient evaluated on the chest x-ray concerning for pneumonia. On today's evaluation that is 06/24/2024, patient has been afebrile, patient is breathing slightly comfortably still requiring high flow nasal cannula oxygen through Airvo P denies having any chest pain no worsening cough or sputum production no abdominal pain or diarrhea. Patient white count is 8.1, creatinine is 1.22 sputum is growing stenotrophomonas Objective - Vital Signs Vital signs: Vital Signs Temp 98.2 F 06/24/24 12:11 Pulse 82 06/24/24 13:24 Resp 26 H 06/24/24 13:24 BP 130/79 06/24/24 12:11 Pulse Ox 96 06/24/24 12:29 FiO2 56 06/24/24 11:23 Intake & Output 06/23/24 06/24/24 06/24/24 18:59 06:59 18:59 Intake Total 720 Output Total 1500 1100 300 Balance -780 -1100 -300 Weight 68.9 kg Intake: Oral 720 Output: Urine 1500 1100 300 Uretheral (Rojas) 500 500 300 Other: Voiding Method Indwelling Catheter Indwelling Catheter Indwelling Catheter # Bowel Movements 1 - Exam GENERAL DESCRIPTION: An elderly male up in bed in no distress RESPIRATORY SYSTEM: Unlabored breathing , coarse breath sounds bilaterally HEART: S1 S2 regular rate and rhythm , ABDOMEN: Soft , no tenderness EXTREMITIES: No edema feet - Labs CBC & Chem 7: 06/25/24 06:45 06/25/24 06:45 Labs: Abnormal Lab Results - Last 24 Hours (Table) 06/23/24 06/23/24 06/24/24 Range/Units 16:40 19:37 05:58 RBC (4.30-5.90) m/uL Hgb (13.0-17.5) gm/dL Hct (39.0-53.0) % Plt Count (150-450) k/uL Lymphocytes # (1.0-4.8) k/uL Sodium (137-145) mmol/L BUN (9-20) mg/dL Glucose (74-99) mg/dL POC Glucose (mg/dL) 232 H 133 H 240 H (70-110) mg/dL Calcium (8.4-10.2) mg/dL 06/24/24 06/24/24 Range/Units 06:18 06:18 RBC 2.76 L (4.30-5.90) m/uL Hgb 8.6 L (13.0-17.5) gm/dL Hct 25.9 L (39.0-53.0) % Plt Count 142 L (150-450) k/uL Lymphocytes # 0.8 L (1.0-4.8) k/uL Sodium 133 L (137-145) mmol/L BUN 25 H (9-20) mg/dL Glucose 221 H (74-99) mg/dL POC Glucose (mg/dL) (70-110) mg/dL Calcium 8.0 L (8.4-10.2) mg/dL Microbiology - Last 24 Hours (Table) 06/22/24 15:30 Gram Stain - Preliminary Sputum Sputum Culture - Preliminary Fungus Isolated Stenotrophomonas maltophilia Eden albicans 06/18/24 15:14 Blood Culture - Final Blood Assessment and Plan (1) Pneumonia Current Visit: Yes Status: Acute Code(s): J18.9 - PNEUMONIA, UNSPECIFIED ORGANISM SNOMED Code(s): 526688174 (2) Sepsis Current Visit: No Status: Acute Code(s): A41.9 - SEPSIS, UNSPECIFIED ORGANISM SNOMED Code(s): 92788533 Plan: 1patient presented to hospital with sepsis in this patient who did have fever tachycardia mild hypotension source is likely pneumonia in this patient who rece ntly did have a COVID-19 will need to cover for resistant gram negative to be the likely etiology and the patient recently grew Pseudomonas in his BAL culture 2-blood cultures are so far negative initially sputum has been negative, urine for Legionella antigen was negative mycoplasma IgM not elevated, repeat sputum is growing stenotrophomonas 3 patient is currently covered with IV Bactrim and Zosyn to continue while waiting for sensitivity of the Pseudomonas pulmonary is considering bronchoscopy lavage Dictation was produced using [employer] dictation software. please excuse any grammatical, word or spelling errors. Time with Patient: Less than 30
--- NOTE | 2024-06-25 15:50 | P.PN ---
Subjective Progress Note Date: 06/25/24 Principal diagnosis: Reason for follow-up is pneumonia Patient is a 79-year-old male with a past medical history significant for non-Hodgkin lymphoma COPD hypertension hyperlipidemia heart failure recently diagnosed with a COVID-19 presented to hospital for evaluation of increasing shortness of breath and cough sputum production did have patient evaluated on the chest x-ray concerning for pneumonia. On today's evaluation that is 06/25/2024, Patient is afebrile this morning patient denies having any chest pain or any worsening shortness of breath still requiring high flow nasal cannula oxygen currently on 35% FiO2 denies any chest pain Did have a cough minimal sputum no abdominal pain or diarrhea. Patient white count 7.4, creatinine 1.10 sputum is growing Aspergillus stenotrophomonas and Eden Objective - Vital Signs Vital signs: Vital Signs Temp 97.6 F 06/25/24 12:02 Pulse 76 06/25/24 12:02 Resp 20 06/25/24 12:02 BP 128/72 06/25/24 12:02 Pulse Ox 93 L 06/25/24 12:02 FiO2 55 06/25/24 11:35 Intake & Output 06/24/24 06/25/24 06/25/24 18:59 06:59 18:59 Intake Total 638 Output Total 3500 2300 Balance -2862 -2300 Intake: IV 500 Intake, IV Titration 20 Amount Piperacillin-Tazobactam 3 20 .375 gm In Sodium Chloride 0.9% 100 ml @ 25 mls/hr IVPB Q8HR [facility] Rx# :[id number] Oral 118 Output: Urine 3500 2300 Uretheral (Rojas) 1400 1100 Other: Voiding Method Indwelling Catheter Indwelling Catheter Indwelling Catheter - Exam GENERAL DESCRIPTION: An elderly male up in bed in no distress RESPIRATORY SYSTEM: Unlabored breathing , coarse breath sounds bilaterally HEART: S1 S2 regular rate and rhythm , ABDOMEN: Soft , no tenderness EXTREMITIES: No edema feet - Labs CBC & Chem 7: 06/25/24 06:45 06/25/24 06:45 Labs: Abnormal Lab Results - Last 24 Hours (Table) 06/24/24 06/24/24 06/25/24 Range/Units 17:00 20:00 06:07 RBC (4.30-5.90) m/uL Hgb (13.0-17.5) gm/dL Hct (39.0-53.0) % Lymphocytes # (1.0-4.8) k/uL Sodium (137-145) mmol/L BUN (9-20) mg/dL Glucose (74-99) mg/dL POC Glucose (mg/dL) 204 H 223 H 238 H (70-110) mg/dL Calcium (8.4-10.2) mg/dL 06/25/24 06/25/24 Range/Units 06:45 06:45 RBC 3.10 L (4.30-5.90) m/uL Hgb 9.5 L (13.0-17.5) gm/dL Hct 29.3 L (39.0-53.0) % Lymphocytes # 0.7 L (1.0-4.8) k/uL Sodium 136 L (137-145) mmol/L BUN 25 H (9-20) mg/dL Glucose 226 H (74-99) mg/dL POC Glucose (mg/dL) (70-110) mg/dL Calcium 8.1 L (8.4-10.2) mg/dL Microbiology - Last 24 Hours (Table) 06/22/24 15:30 Gram Stain - Final Sputum Sputum Culture - Final Aspergillus fumigatus Stenotrophomonas maltophilia Eden albicans 06/24/24 15:00 Gram Stain - Preliminary Bronchial Washings - Random Assessment and Plan (1) Pneumonia Current Visit: Yes Status: Acute Code(s): J18.9 - PNEUMONIA, UNSPECIFIED ORGANISM SNOMED Code(s): 411874861 (2) Sepsis Current Visit: No Status: Acute Code(s): A41.9 - SEPSIS, UNSPECIFIED ORGANISM SNOMED Code(s): 73450766 Plan: 1patient presented to hospital with sepsis in this patient who did have fever tachycardia mild hypotension source is likely pneumonia in this patient who recently did have a COVID-19 will need to cover for resistant gram negative to be the likely etiology and the patient recently grew Pseudomonas in his BAL cu lture 2-blood cultures are so far negative initially sputum has been negative, urine for Legionella antigen was negative mycoplasma IgM not elevated, repeat sputum is growing stenotrophomonas as well as Aspergillus and Eden 3 we will coordinate check Aspergillus CF antibodies and Aspergillus gala ctomannan 4continue with the IV Bactrim to cover for stenotrophomonas to which the pathogen is sensitive and discontinue Zosyn Dictation was produced using [employer] software. please excuse any grammatical, word or spelling errors. Time with Patient: Less than 30
[2024-06-25 17:14] LABS: Glucose,Whole Blood 271 mg/dL (70-110)
--- NOTE | 2024-06-25 17:43 | P.PN ---
Subjective Progress Note Date: 06/25/24 On 06/22/2024, the patient is being seen for a follow-up. This morning, the patient is on a BiPAP pressure of 16 over 5 cm of water with FiO2 of 60% and the patient is on a lactated Ringer at rate of 50 cc an hour. Chest x-ray was done this morning and it showed patchy infiltrates in lung bases more so on the right consistent with pneumonia. Most recent bronchoscopy yielded stenotrophomonas and the patient has grown Pseudomonas in the past. The patient is currently on IV Zosyn. He remains on DuoNeb nebulized treatments [id number]. He is on Symbicort. He is on IV Solu-Medrol. He is awake and alert and communicating. The white cell count is at 7 with hemoglobin of 10 and platelet count of 189. BUN is 27 with a creatinine of 1.36 and a sodium levels at 138. He is weak and quite debilitated on a chronic basis. Bactrim will be also added to his regimen. On 06/23/2024, the patient is still on Airvo at 35 L with an FiO2 of 50% with a pulse ox of 96%. Feels somewhat improved compared to yesterday. Continues to have a congested cough with limited amount of sputum production. Antibiotic modification was done yesterday and the patient is currently on a combination of Zosyn and IV Bactrim. Renal function remained stable. On today's blood work, the creatinine is at 1.24 with a BUN of 23. Rest of the electrolytes are all stable and within normal limits. White cell count of 5.3 with a hemoglobin of 9. A repeat chest x-ray from today shows some bibasilar pulmonary filtrates slightly worse on the left along with background COPD. Remains on bronchodilators. Remains on steroids. Remains on lactated Ringer at 50 cc an hour. Remains on Symbicort and DuoNeb updrafts [id number]. Home medications have been also resumed. 06/24/2024, the patient remains on Airvo 35 L with an FiO2 of 55%. The patient continues to have respiratory difficulties, cough, congestion, unable to bring up much of sputum. No significant improvement in respiratory status over the past 24 hours. The patient remains on a combination of IV Bactrim and IV Zosyn. The white cell count is at 8.1. Hemoglobin is 8.6 and a platelet count of 142. BUN is 25 with a creatinine of 1.22. He is getting progressively more debilitated and weak. Spending most of the time in bed. Oral intake is diminished and the patient had minimal amount of old. Earlier this morning. I plan to do a bronchoscopy on this patient in the afternoon to further optimize her respiratory status. Suspect mucous plugs. 06/25/2024, the patient is post bronchoscopy. The patient remains on Airvo 35 L with an FiO2 of 55%. Continues to struggle with his breathing. Cough and congestion is improved compared to yesterday post bronchoscopy. Repeat bronchoalveolar lavage was done and results are still pending. Most recent sputum sample is showing Eden, Aspergillus and stenotrophomonas. The patient remains on Bactrim IV. Remains on IV Solu-Medrol. Remains on DuoNeb nebulized treatments [id number]. The white cell count of 7.4 with a hemoglobin 9.5 and a platelet count of 197. Sodium is at 136, BUN 25 with a creatinine of 1.1. ID is on the case. No other new complaints otherwise for now. Objective - Vital Signs Vital signs: Vital Signs Temp 97.7 F 06/25/24 16:53 Pulse 77 06/25/24 16:53 Resp 20 06/25/24 16:53 BP 134/73 06/25/24 16:53 Pulse Ox 94 L 06/25/24 16:53 FiO2 55 06/25/24 15:15 Intake & Output 06/24/24 06/25/24 06/25/24 18:59 06:59 18:59 Intake Total 638 Output Total 3500 2300 Balance -2862 -2300 Intake: IV 500 Intake, IV Titration 20 Amount Piperacillin-Tazobactam 3 20 .375 gm In Sodium Chloride 0.9% 100 ml @ 25 mls/hr IVPB Q8HR [facility] Rx# :[id number] Oral 118 Output: Urine 3500 2300 Uretheral (Rojas) 1400 1100 Other: Voiding Method Indwelling Catheter Indwelling Catheter Indwelling Catheter - Exam Patient is calm and comfortable, communicating , currently on Airvo 35 L and FiO2 of 55%, breathing is mildly labored HEENT examination is grossly unremarkable. Mucous membranes are moist. No oral lesions. Neck supple. Full range of motion. No adenopathy thyromegaly or neck vein distention. Cardiovascular examination reveals regular rhythm rate. S1-S2 normal. No S3 or S4. No discernible murmur noted. Heart sounds are distant. Lungs reveal scattered bilateral rhonchi and expiratory wheezes. No crackles. Breath sounds equal but diminished throughout. Abdomen soft and without bowel sounds. No masses or tenderness. Extremities are intact. No cyanosis clubbing or edema. Skin is without rash or lesion. Neurologic examination is brief but nonfocal. - Labs CBC & Chem 7: 06/25/24 06:45 06/25/24 06:45 Labs: Abnormal Lab Results - Last 24 Hours (Table) 06/24/24 06/25/24 06/25/24 Range/Units 20:00 06:07 06:45 RBC (4.30-5.90) m/uL Hgb (13.0-17.5) gm/dL Hct (39.0-53.0) % Lymphocytes # (1.0-4.8) k/uL Sodium 136 L (137-145) mmol/L BUN 25 H (9-20) mg/dL Glucose 226 H (74-99) mg/dL POC Glucose (mg/dL) 223 H 238 H (70-110) mg/dL Calcium 8.1 L (8.4-10.2) mg/dL 06/25/24 06/25/24 Range/Units 06:45 17:05 RBC 3.10 L (4.30-5.90) m/uL Hgb 9.5 L (13.0-17.5) gm/dL Hct 29.3 L (39.0-53.0) % Lymphocytes # 0.7 L (1.0-4.8) k/uL Sodium (137-145) mmol/L BUN (9-20) mg/dL Glucose (74-99) mg/dL POC Glucose (mg/dL) 271 H (70-110) mg/dL Calcium (8.4-10.2) mg/dL Microbiology - Last 24 Hours (Table) 06/22/24 15:30 Gram Stain - Final Sputum Sputum Culture - Final Aspergillus fumigatus Stenotrophomonas maltophilia Eden albicans 06/24/24 15:00 Gram Stain - Preliminary Bronchial Washings - Random Assessment and Plan Plan: Acute hypoxic respiratory failure, suspecting a gram-negative pneumonia with as the patient has a bilateral lower lobe pulmonary filtrates and previous bronchoscopy remarkable lavage yielded stenotrophomonas and Pseudomonas. Patient is currently off BiPAP on Airvo with 35 L with FiO2 of 55 %. Overall respiratory status is stable and the patient is currently on IV Bactrim. There is sputum sample that was obtained during this current admission showed Eden, Aspergillus and stenotrophomonas. The patient is status post bronchoscopy done on 06/24/2024. Repeat cultures were sent and results are still pending for now. ID is on the case. Recurrent respiratory tract infection/pneumonia and the patient continues to lower lobe consolidation previous culture showing gram-negative bacterial infection including stenotrophomonas. Suspect ongoing mucous plugging, leading to shortness of breath Recent hospitalization for a COPD exacerbation and a COVID-19 infection, Acuity of exacerbation secondary to above Previous hospitalization for a pseudomonal tracheobronchitis/pneumonia status post repeat bronchoscopy that was done on 06/03/2024 the patient is still on oral ciprofloxacin, currently on IV Zosyn. Repeat sputum sample and the bronchial lavage that was done on this patient showed stenotrophomonas. Oxygen dependent chronic obstructive pulmonary disease with an FEV1 value 39% of predicted Chronic tobacco dependence of greater than 60 years Right upper lobe PET avid pulmonary nodule which is being monitored on outpatient basis, measuring up to 1.4 cm in size, enlarging in size and the patient will need an SBRT at a later stage on outpatient basis. History of non-Hodgkin's lymphoma Chronic stage III kidney disease Coronary disease with previous coronary artery bypass surgery in 2001 History of abdominal aortic aneurysm status post stent placement in March 2022 Carotid stenosis status post endarterectomy History of ESBL E. coli and bronchial wash in 2021 Hyperlipidemia Hypertension Plan: Continue Airvo and titrate the FiO2 Aggressive pulmonary toileting and chest PT Repeat bronchoscopy and removal of mucous plugs was done on 06/24/2024 Continue IV Bactrim Monitor renal function Continue bronchodilators Continue steroids and the patient is currently on IV Solu-Medrol Resume home medications Chest x-ray was noted Will continue to follow
[2024-06-25 20:04] LABS: Glucose,Whole Blood 153 mg/dL (70-110)
[2024-06-26 06:09] LABS: Glucose,Whole Blood 232 mg/dL (70-110)
[2024-06-26 06:58] LABS: Basophils % (A) 0 %; Eosinophils % (A) 0 %; HCT 29.6 % (39.0-53.0); HGB 9.5 gm/dL (13.0-17.5); Lymphocytes # (A) 0.7 k/uL (1.0-4.8); Lymphocytes % (A) 9 %; MCH 30.2 pg (25.0-35.0); MCV 94.5 fL (80.0-100.0); Monocytes # (A) 0.3 k/uL (0-1.0); Monocytes % (A) 4 %; Neutrophils # (A) 6.6 k/uL (1.3-7.7); Neutrophils % (A) 85 %; Platelet Count 199 k/uL (150-450); RBC 3.14 m/uL (4.30-5.90); RDW 15.1 % (11.5-15.5); WBC 7.8 k/uL (3.8-10.6)
[2024-06-26 07:26] LABS: African American GFR (CKD) 73 (>60 ml/min/1.73 sqM); Anion Gap 7 mmol/L; Blood Urea Nitrogen 25 mg/dL (9-20); Calcium 8.4 mg/dL (8.4-10.2); Carbon Dioxide 22 mmol/L (22-30); Chloride 106 mmol/L (98-107); Glucose 199 mg/dL (74-99); Non-African American GFR(CKD) 63 (>60 ml/min/1.73 sqM); Potassium 4.5 mmol/L (3.5-5.1); Sodium 135 mmol/L (137-145)
[2024-06-26 11:40] LABS: Glucose,Whole Blood 214 mg/dL (70-110)
--- NOTE | 2024-06-26 13:38 | P.PN ---
Subjective Progress Note Date: 06/26/24 On 06/22/2024, the patient is being seen for a follow-up. This morning, the patient is on a BiPAP pressure of 16 over 5 cm of water with FiO2 of 60% and the patient is on a lactated Ringer at rate of 50 cc an hour. Chest x-ray was done this morning and it showed patchy infiltrates in lung bases more so on the right consistent with pneumonia. Most recent bronchoscopy yielded stenotrophomonas and the patient has grown Pseudomonas in the past. The patient is currently on IV Zosyn. He remains on DuoNeb nebulized treatments [id number]. He is on Symbicort. He is on IV Solu-Medrol. He is awake and alert and communicating. The white cell count is at 7 with hemoglobin of 10 and platelet count of 189. BUN is 27 with a creatinine of 1.36 and a sodium levels at 138. He is weak and quite debilitated on a chronic basis. Bactrim will be also added to his regimen. On 06/23/2024, the patient is still on Airvo at 35 L with an FiO2 of 50% with a pulse ox of 96%. Feels somewhat improved compared to yesterday. Continues to have a congested cough with limited amount of sputum production. Antibiotic modification was done yesterday and the patient is currently on a combination of Zosyn and IV Bactrim. Renal function remained stable. On today's blood work, the creatinine is at 1.24 with a BUN of 23. Rest of the electrolytes are all stable and within normal limits. White cell count of 5.3 with a hemoglobin of 9. A repeat chest x-ray from today shows some bibasilar pulmonary filtrates slightly worse on the left along with background COPD. Remains on bronchodilators. Remains on steroids. Remains on lactated Ringer at 50 cc an hour. Remains on Symbicort and DuoNeb updrafts [id number]. Home medications have been also resumed. 06/24/2024, the patient remains on Airvo 35 L with an FiO2 of 55%. The patient continues to have respiratory difficulties, cough, congestion, unable to bring up much of sputum. No significant improvement in respiratory status over the past 24 hours. The patient remains on a combination of IV Bactrim and IV Zosyn. The white cell count is at 8.1. Hemoglobin is 8.6 and a platelet count of 142. BUN is 25 with a creatinine of 1.22. He is getting progressively more debilitated and weak. Spending most of the time in bed. Oral intake is diminished and the patient had minimal amount of old. Earlier this morning. I plan to do a bronchoscopy on this patient in the afternoon to further optimize her respiratory status. Suspect mucous plugs. 06/25/2024, the patient is post bronchoscopy. The patient remains on Airvo 35 L with an FiO2 of 55%. Continues to struggle with his breathing. Cough and congestion is improved compared to yesterday post bronchoscopy. Repeat bronchoalveolar lavage was done and results are still pending. Most recent sputum sample is showing Eden, Aspergillus and stenotrophomonas. The patient remains on Bactrim IV. Remains on IV Solu-Medrol. Remains on DuoNeb nebulized treatments [id number]. The white cell count of 7.4 with a hemoglobin 9.5 and a platelet count of 197. Sodium is at 136, BUN 25 with a creatinine of 1.1. ID is on the case. No other new complaints otherwise for now. 06/26/2024, patient is being seen for a follow-up. The patient is sitting up in a chair. Awaiting the results from the bronchoscopy and bronchial lavage. Most recent sputum analysis was positive for stenotrophomonas in addition to Aspergillus and candidal elements. Earlier this morning, the patient was on Airvo. He was at 35 L with an FiO2 of 55%. I took him off the Airvo and I put him on 60 days of oxygen by nasal cannula and his current pulse ox 94%. He remains bronchospastic and wheezy. Awaiting consistent 0.8 edema 9.5 and a platelet count of 199. BUN is 25 with a creatinine of 1.09 and sodium levels at 135. Communicating. Awake. No chest pain. No other new complaints since yesterday. Awaiting results of the bronchial lavage and the patient remains on IV Bactrim. In terms of his renal function, the patient's creatinine is stable at 1.09. Objective - Vital Signs Vital signs: Vital Signs Temp 97.6 F 06/26/24 12:00 Pulse 85 06/26/24 12:18 Resp 20 06/26/24 12:00 BP 153/77 06/26/24 12:00 Pulse Ox 94 L 06/26/24 12:06 FiO2 55 06/26/24 08:47 Intake & Output 06/25/24 06/26/24 06/26/24 18:59 06:59 18:59 Intake Total 1210 800 240 Output Total 1999 Balance 1210 800 -1760 Intake: IV 210 Lactated Ringers 1,000 ml 110 @ 50 mls/hr IV .Q20H [facility] Rx#:[id number] Piperacillin-Tazobactam 3 100 .375 gm In Sodium Chloride 0.9% 100 ml @ 25 mls/hr IVPB Q8HR [facility] Rx# :[id number] Intake, IV Titration 500 Amount Sulfamethox-Tmp 80-16Mg/ 500 ml 352 mg In Dextrose 5% in Water 500 ml @ 333.33 mls/hr IVPB Q8H [facility] Rx#: [id number] Oral 500 800 240 Output: Urine 1999 Other: Voiding Method Indwelling Catheter Indwelling Catheter Indwelling Catheter # Voids 1 # Bowel Movements 0 - Exam Patient is calm and comfortable, communicating , currently 6 L of oxygen by nasal cannula HEENT examination is grossly unremarkable. Mucous membranes are moist. No oral lesions. Neck supple. Full range of motion. No adenopathy thyromegaly or neck vein distention. Cardiovascular examination reveals regular rhythm rate. S1-S2 normal. No S3 or S4. No discernible murmur noted. Heart sounds are distant. Lungs reveal scattered bilateral rhonchi and expiratory wheezes. No crackles. Breath sounds equal but diminished throughout. Abdomen soft and without bowel sounds. No masses or tenderness. Extremities are intact. No cyanosis clubbing or edema. Skin is without rash or lesion. Neurologic examination is brief but nonfocal. - Labs CBC & Chem 7: 06/26/24 06:26 06/26/24 06:26 Labs: Abnormal Lab Results - Last 24 Hours (Table) 06/25/24 06/25/24 06/26/24 Range/Units 17:05 19:56 06:00 RBC (4.30-5.90) m/uL Hgb (13.0-17.5) gm/dL Hct (39.0-53.0) % Lymphocytes # (1.0-4.8) k/uL Sodium (137-145) mmol/L BUN (9-20) mg/dL Glucose (74-99) mg/dL POC Glucose (mg/dL) 271 H 153 H 232 H (70-110) mg/dL 06/26/24 06/26/24 06/26/24 Range/Units 06:26 06:26 11:38 RBC 3.14 L (4.30-5.90) m/uL Hgb 9.5 L (13.0-17.5) gm/dL Hct 29.6 L (39.0-53.0) % Lymphocytes # 0.7 L (1.0-4.8) k/uL Sodium 135 L (137-145) mmol/L BUN 25 H (9-20) mg/dL Glucose 199 H (74-99) mg/dL POC Glucose (mg/dL) 214 H (70-110) mg/dL Microbiology - Last 24 Hours (Table) 06/24/24 15:00 Gram Stain - Preliminary Bronchial Washings - Random Bronchial Washings Culture - Preliminary 06/22/24 15:30 Gram Stain - Final Sputum Sputum Culture - Final Aspergillus fumigatus Stenotrophomonas maltophilia Eden albicans Assessment and Plan Plan: Acute hypoxic respiratory failure, suspecting a gram-negative pneumonia with as the patient has a bilateral lower lobe pulmonary filtrates and previous bronchoscopy remarkable lavage yielded stenotrophomonas and Pseudomonas. Patient was on Airvo and I was able to wean him down to 6 L of oxygen by nasal cannula. Status post bronchoscopy and repeat bronchial lavage cultures are still pending.. Overall respiratory status is stable and the patient is currently on IV Bactrim. There is sputum sample that was obtained during this current admission showed Eden, Aspergillus and stenotrophomonas. The patient is status post bronchoscopy done on 06/24/2024. Recurrent respiratory tract infection/pneumonia and the patient continues to lower lobe consolidation previous culture showing gram-negative bacterial infection including stenotrophomonas. Suspect ongoing mucous plugging, leading to shortness of breath Recent hospitalization for a COPD exacerbation and a COVID-19 infection, Acuity of exacerbation secondary to above Previous hospitalization for a pseudomonal tracheobronchitis/pneumonia status post repeat bronchoscopy that was done on 06/03/2024 the patient is still on oral ciprofloxacin, currently on IV Zosyn. Repeat sputum sample and the bronchial lavage that was done on this patient showed stenotrophomonas. Oxygen dependent chronic obstructive pulmonary disease with an FEV1 value 39% of predicted Chronic tobacco dependence of greater than 60 years Right upper lobe PET avid pulmonary nodule which is being monitored on outpatient basis, measuring up to 1.4 cm in size, enlarging in size and the patient will need an SBRT at a later stage on outpatient basis. History of non-Hodgkin's lymphoma Chronic stage III kidney disease Coronary disease with previous coronary artery bypass surgery in 2001 History of abdominal aortic aneurysm status post stent placement in March 2022 Carotid stenosis status post endarterectomy History of ESBL E. coli and bronchial wash in 2021 Hyperlipidemia Hypertension Plan: Stop the Airvo and put the patient on oxygen 60 Dyspamet nasal cannula Aggressive pulmonary toileting and chest PT Repeat bronchoscopy and removal of mucous plugs was done on 06/24/2024, the results of bronchial lavage, repeat cultures are still pending Continue IV Bactrim Monitor renal function, renal function stable Continue bronchodilators Continue steroids and the patient is currently on IV Solu-Medrol Resume home medications Chest x-ray was noted Will continue to follow
--- NOTE | 2024-06-26 15:08 | P.PN ---
Subjective Progress Note Date: 06/26/24 Principal diagnosis: Reason for follow-up is pneumonia Patient is a 79-year-old male with a past medical history significant for non-Hodgkin lymphoma COPD hypertension hyperlipidemia heart failure recently diagnosed with a COVID-19 presented to hospital for evaluation of increasing shortness of breath and cough sputum production did have patient evaluated on the chest x-ray concerning for pneumonia. On today's evaluation that is 06/26/2024,the patient denies any fever or any chills, patient is complaining of shortness of breath however is down to 6 L nasal cannula oxygen he denies any worsening cough or sputum production no nausea vomiting no abdominal pain or diarrhea. The patient white count 7.8 creatinine 1.09 bronchial wash is currently pending Objective - Vital Signs Vital signs: Vital Signs Temp 97.6 F 06/26/24 12:00 Pulse 85 06/26/24 12:18 Resp 20 06/26/24 12:00 BP 153/77 06/26/24 12:00 Pulse Ox 94 L 06/26/24 12:06 FiO2 55 06/26/24 08:47 Intake & Output 06/25/24 06/26/24 06/26/24 18:59 06:59 18:59 Intake Total 1210 800 358 Output Total 1999 Balance 1210 800 -1642 Intake: IV 210 Lactated Ringers 1,000 ml 110 @ 50 mls/hr IV .Q20H [facility] Rx#:[id number] Piperacillin-Tazobactam 3 100 .375 gm In Sodium Chloride 0.9% 100 ml @ 25 mls/hr IVPB Q8HR [facility] Rx# :[id number] Intake, IV Titration 500 Amount Sulfamethox-Tmp 80-16Mg/ 500 ml 352 mg In Dextrose 5% in Water 500 ml @ 333.33 mls/hr IVPB Q8H [facility] Rx#: [id number] Oral 500 800 358 Output: Urine 1999 Other: Voiding Method Indwelling Catheter Indwelling Catheter Indwelling Catheter # Voids 1 # Bowel Movements 0 - Exam GENERAL DESCRIPTION: An elderly male up in bed in no distress RESPIRATORY SYSTEM: Unlabored breathing , coarse breath sounds bilaterally HEART: S1 S2 regular rate and rhythm , ABDOMEN: Soft , no tenderness EXTREMITIES: No edema feet - Labs CBC & Chem 7: 06/26/24 06:26 06/26/24 06:26 Labs: Abnormal Lab Results - Last 24 Hours (Table) 06/25/24 06/25/24 06/26/24 Range/Units 17:05 19:56 06:00 RBC (4.30-5.90) m/uL Hgb (13.0-17.5) gm/dL Hct (39.0-53.0) % Lymphocytes # (1.0-4.8) k/uL Sodium (137-145) mmol/L BUN (9-20) mg/dL Glucose (74-99) mg/dL POC Glucose (mg/dL) 271 H 153 H 232 H (70-110) mg/dL 06/26/24 06/26/24 06/26/24 Range/Units 06:26 06:26 11:38 RBC 3.14 L (4.30-5.90) m/uL Hgb 9.5 L (13.0-17.5) gm/dL Hct 29.6 L (39.0-53.0) % Lymphocytes # 0.7 L (1.0-4.8) k/uL Sodium 135 L (137-145) mmol/L BUN 25 H (9-20) mg/dL Glucose 199 H (74-99) mg/dL POC Glucose (mg/dL) 214 H (70-110) mg/dL Microbiology - Last 24 Hours (Table) 06/24/24 15:00 Gram Stain - Preliminary Bronchial Washings - Random Bronchial Washings Culture - Preliminary 06/22/24 15:30 Gram Stain - Final Sputum Sputum Culture - Final Aspergillus fumigatus Stenotrophomonas maltophilia Eden albicans Assessment and Plan (1) Pneumonia Current Visit: Yes Status: Acute Code(s): J18.9 - PNEUMONIA, UNSPECIFIED ORGANISM SNOMED Code(s): 475726799 (2) Sepsis Current Visit: No Status: Acute Code(s): A41.9 - SEPSIS, UNSPECIFIED ORGANISM SNOMED Code(s): 47704689 Plan: 1patient presented to hospital with sepsis in this patient who did have fever tachycardia mild hypotension source is likely pneumonia in this patient who recently did have a COVID-19 will need to cover for resistant gram negative to be the likely etiology and the patient recently grew Pseudomonas in his BAL culture 2-blood cultures are so far negative initially sputum has been negative, urine for Legionella antigen was negative mycoplasma IgM not elevated, repeat sputum is growing stenotrophomonas as well as Aspergillus and Eden 3 we currently waiting for Aspergillus CF antibodies and Aspergillus galactomannan 4continue with the IV Bactrim to cover for stenotrophomonas to which the pathogen is sensitive await BAL culture to be finalized Dictation was produced using [employer] software. please excuse any grammatical, word or spelling errors. Time with Patient: Less than 30
[2024-06-26 16:13] LABS: Glucose,Whole Blood 275 mg/dL (70-110)
--- NOTE | 2024-06-26 16:37 | P.PN ---
Subjective Progress Note Date: 06/26/24 Hospital course: Patient is a very pleasant 79-year-old male with a past medical history of systolic CHF with EF 40 to 45%, COPD on 3L home O2, chronic kidney disease, hypertension, hyperlipidemia, non-Hodgkins lymphoma, CAD with CABG, AAA with stent, carotid stenosis with endarterectomy presents to the ED for shortness of breath. Apparently his O2 sat was in the 70s when EMS arrived on his 3L NC. Recently admitted from 06/05-06/07 for similar complaints, COVID + at that time, treated with bronchodilators, Zosyn, SoluMedrol and discharged on a Prednisone taper and to complete a course of Ciprofloxacin. He recently underwent bronchoscopy with BAL with Dr. Cano on 05/13 with cultures resulting in Pseudomonas and ariel albicans. He was started on Ciprofloxacin at that time. He underwent repeat bronchoscopy with BAL with Dr. Cano on 06/03 which grew stenotrophomonas maltophilia. He was continued on Ciprofloxacin and according to the patient has been taking it over the past 5-6 weeks. In the ED he underwent extensive evaluation. Tmax 100F, BP 119/62, HR 102, RR 40, 91% on 3L. CBC, Coag panel, CMP significant for RBC 4, Hg 12.4, Hct 35.8, PT 9.9, bicarb 33, BUN 39, Cr 1.91, glu 131. Lactic acid 2.9. Troponin 0.054. EKG sinus tachycardia with RBBB. CXR showed COPD with patchy interstitial densities increased from previous CXRs. Patient is admitted for further workup and management. Patient seen by pulmonology and started on IV Zosyn and Bactrim. Patient also on IV steroids. Patient was on BiPAP. Patient weaned down to Airvo. Patient had another bronchoscopy done on 06/24/2024 that showed tracheobronchomalacia with copious thick secretions and mucous plugging. Sputum culture obtained at this time showing Aspergillus fumigatus, stenotrophomonas maltophilia, and Ariel albicans. Patient currently on Bactrim 352 mg IVPB every 8 hours Physical exam: Patient was seen and fully evaluated at bedside this morning. Patient resting comfortably continues to report shortness of breath and significant fatigue. Patient reports feeling worn out. His respirations are unlabored but continues to have a slight increased work of breathing. Vital signs reviewed and stable. General: Nontoxic, no distress and appears stated age. Derm: Skin warm and dry, normal coloration for ethnicity. Head: Atraumatic, normocephalic and symmetric. Eyes: EOM's intact, no lid lag, and anicteric sclera Mouth: no lip lesions, mucus membranes moist Cardiovascular: regular rate and rhythm with normal S1S2, no murmur, positive posterior tibial pulses bilaterally, and cap refill < 2 seconds. Lungs: Respirations even, regular, and unlabored on Airvo. Lungs diminished with diffuse expiratory wheezes and rhonchi throughout. Abdominal: soft, nontender to palpation, no guarding, no appreciable organomegaly Ext: ROM intact. No gross muscle atrophy, no edema, no contractures Neuro: Speech clear, face symmetrical and CN II-XII grossly intact with no noted focal neuro deficits Psych: Alert and oriented to person, place, time, and situation. Appropriate and pleasant affect. Assessment and Plan of Care: Acute on chronic hypoxic respiratory failure, likely from COVID sequelae versus possible pneumonia Sepsis upon admission Acute on chronic COPD exacerbation -Patient in the last month had BAL cultures that were positive for Pseudomonas and stenotrophomonas maltophilia -Continue IV antibiotics with Bactrim 352 mg every 8 hours. Day #5 -Continue with supplemental oxygen maintain SpO2 equal to or greater than 90%. Patient currently on Airvo. Wean O2 as tolerated -Sputum culture positive for aspergillus fumigatus, stenotrophomonas maltophilia, and Ariel albicans -Infectious disease following, reviewed documentation in chart. -Pulmonology following, took patient for bronchoscopy with BAL on 06/24/2024 which revealed tracheobronchomalacia with copious thick secretions and mucous plugging. -Follow-up on cultures from bronchoscopy -Continue with Symbicort 2 puffs INH BID. DuoNebs scheduled Q4H and as needed for wheezing/shortness of breath. Singulair 10 mg PO HS, and IV steroids with SoluMedrol 60 mg IV Q6H. Elevated troponin -Troponins flat and ACS ruled out -Continue with ASA 81 mg PO QD. Lipitor 40 mg PO QHS. Plavix 75 mg PO QD. Metoprolol 25 mg PO QD. 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 BRITT resolved and renal function back at baseline with BUN of 25, creatinine of 1.09, and GFR of 63. Lactic acidosis -Resolved Acute blood loss anemia -Patient's hemoglobin was trending down and subcu Lovenox for DVT prophylaxis was discontinued and orders placed for SCDs. -Today hemoglobin is 9.5 and stable -Patient at this time is too unstable for any endoscopic procedures Chronic conditions Systolic CHF with EF 40-45%: Appears euvolemic. Hypertension: Metoprolol as above. Dyslipidemia: Lipitor as above. Non-Hodgkins lymphoma CAD with CABG: ASA, Lipitor, Plavix, Metoprolol as above. Carotid stenosis with endarterectomy: ASA, Lipitor, Plavix, as above. Data and imaging reviewed: Morning labs reviewed. CBC showing stable normocytic anemia with hemoglobin of 9.5. BMP showing stable renal function at baseline with BUN of 25, creatinine of 1.09, GFR of 63. Blood glucose was elevated at 199. Vital signs reviewed. Blood pressure 139/72, heart rate 81, respiratory rate 17, temp 97.7 F, and SpO2 of 96% on 15 L high flow nasal cannula via Airvo. Sputum culture positive for aspergillus fumigatus, stenotrophomonas maltophilia, and Ariel albicans. CODE STATUS: Full code DVT prophylaxis: SCDs Anticipated discharge date: Pending clinical course Anticipated discharge place: Pending clinical course Patient was seen independently by Nurse Pracitioner. This document was prepared using [employer] dictation software. Please allow for errors in [employer] former brace end, while rare they do occur. I reviewed the documentation as provided by the MICHELE above, who is the original author of this note. I agree with the documented assessment and plan, with the following changes: none Objective - Vital Signs Vital signs: Vital Signs Temp 98.3 F 06/25/24 19:43 Pulse 90 06/26/24 03:48 Resp 18 06/26/24 03:48 BP 137/71 06/26/24 03:48 Pulse Ox 97 06/26/24 03:48 FiO2 55 06/26/24 00:41 Intake & Output 06/25/24 06/26/24 06/26/24 18:59 06:59 18:59 Intake Total 1210 800 Balance 1210 800 Intake: IV 210 Lactated Ringers 1,000 ml 110 @ 50 mls/hr IV .Q20H [facility] Rx#:[id number] Piperacillin-Tazobactam 3 100 .375 gm In Sodium Chloride 0.9% 100 ml @ 25 mls/hr IVPB Q8HR [facility] Rx# :[id number] Intake, IV Titration 500 Amount Sulfamethox-Tmp 80-16Mg/ 500 ml 352 mg In Dextrose 5% in Water 500 ml @ 333.33 mls/hr IVPB Q8H [facility] Rx#: [id number] Oral 500 800 Other: Voiding Method Indwelling Catheter Indwelling Catheter # Voids 1 # Bowel Movements 0 - Labs CBC & Chem 7: 06/27/24 06:04 06/27/24 06:04 Labs: Abnormal Lab Results - Last 24 Hours (Table) 06/25/24 06/25/24 06/26/24 Range/Units 17:05 19:56 06:00 RBC (4.30-5.90) m/uL Hgb (13.0-17.5) gm/dL Hct (39.0-53.0) % Lymphocytes # (1.0-4.8) k/uL Sodium (137-145) mmol/L BUN (9-20) mg/dL Glucose (74-99) mg/dL POC Glucose (mg/dL) 271 H 153 H 232 H (70-110) mg/dL 06/26/24 06/26/24 Range/Units 06:26 06:26 RBC 3.14 L (4.30-5.90) m/uL Hgb 9.5 L (13.0-17.5) gm/dL Hct 29.6 L (39.0-53.0) % Lymphocytes # 0.7 L (1.0-4.8) k/uL Sodium 135 L (137-145) mmol/L BUN 25 H (9-20) mg/dL Glucose 199 H (74-99) mg/dL POC Glucose (mg/dL) (70-110) mg/dL Microbiology - Last 24 Hours (Table) 06/22/24 15:30 Gram Stain - Final Sputum Sputum Culture - Final Aspergillus fumigatus Stenotrophomonas maltophilia Ariel albicans 06/24/24 15:00 Gram Stain - Preliminary Bronchial Washings - Random
[2024-06-26] MEDS: LORazepam 2 MG/ML INJ IV STA (17:07)
[2024-06-26] MEDS ORDERED: ALPRAZolam 0.25 MG TAB PO PRN (19:21)
[2024-06-26 19:52] LABS: Glucose,Whole Blood 234 mg/dL (70-110)
[2024-06-26] MEDS ORDERED: [UNRECOGNIZED DRUG - OTHER] INHALATION SCH (20:00)
[2024-06-26] MEDS ORDERED: SALMETEROL INHALATION SCH (20:00)
[2024-06-26] MEDS ORDERED: FLUTICASONE PROPION INHALATION SCH (20:00)
[2024-06-26] MEDS: ALBUTEROL HFA INHALER INHALATION SCH (20:12)
[2024-06-27 05:59] LABS: Glucose,Whole Blood 168 mg/dL (70-110)
[2024-06-27 06:53] LABS: HCT 28.3 % (39.0-53.0); HGB 9.9 gm/dL (13.0-17.5); MCH 31.3 pg (25.0-35.0); Mean Platelet Volume 9.4; Platelet Count 199 k/uL (150-450); RBC 3.16 m/uL (4.30-5.90); RDW 15.4 % (11.5-15.5); WBC 10.2 k/uL (3.8-10.6)
[2024-06-27 06:58] LABS: African American GFR (CKD) 68 (>60 ml/min/1.73 sqM); Anion Gap 3 mmol/L; Blood Urea Nitrogen 23 mg/dL (9-20); Calcium 8.4 mg/dL (8.4-10.2); Carbon Dioxide 27 mmol/L (22-30); Chloride 105 mmol/L (98-107); Glucose 140 mg/dL (74-99); Magnesium 1.8 mg/dL (1.6-2.3); Non-African American GFR(CKD) 59 (>60 ml/min/1.73 sqM); Potassium 4.7 mmol/L (3.5-5.1); Sodium 135 mmol/L (137-145)
[2024-06-27 07:22] LABS: MCV 89.4 fL (80.0-100.0)
[2024-06-27] MEDS: MULTIVITAMINS, THERA 1 EACH TAB PO SCH (08:32)
[2024-06-27] MEDS ORDERED: NON FORMULARY DRUG (Omega-3/Dha/Epa/Fish Oil [Fish Oil 1,000 Mg Softgel] 1 EACH Capsule) PO SCH (09:00)
[2024-06-27] MEDS: ALPRAZolam 0.5 MG TAB PO PRN (11:27)
[2024-06-27] MEDS: SODIUM CHLORIDE 0.9% 1,000 ML IV SCH (11:27)
[2024-06-27 11:37] LABS: Glucose,Whole Blood 129 mg/dL (70-110)
--- NOTE | 2024-06-27 12:20 | P.PN ---
Subjective Progress Note Date: 06/27/24 Hospital course: Patient is a very pleasant 79-year-old male with a past medical history of systolic CHF with EF 40 to 45%, COPD on 3L home O2, chronic kidney disease, hypertension, hyperlipidemia, non-Hodgkins lymphoma, CAD with CABG, AAA with stent, carotid stenosis with endarterectomy presents to the ED for shortness of breath. Apparently his O2 sat was in the 70s when EMS arrived on his 3L NC. Recently admitted from 06/05-06/07 for similar complaints, COVID + at that time, treated with bronchodilators, Zosyn, SoluMedrol and discharged on a Prednisone taper and to complete a course of Ciprofloxacin. He recently underwent bronchoscopy with BAL with Dr. Cano on 05/13 with cultures resulting in Pseudomonas and eden albicans. He was started on Ciprofloxacin at that time. He underwent repeat bronchoscopy with BAL with Dr. Cano on 06/03 which grew stenotrophomonas maltophilia. He was continued on Ciprofloxacin and according to the patient has been taking it over the past 5-6 weeks. In the ED he underwent extensive evaluation. Tmax 100F, BP 119/62, HR 102, RR 40, 91% on 3L. CBC, Coag panel, CMP significant for RBC 4, Hg 12.4, Hct 35.8, PT 9.9, bicarb 33, BUN 39, Cr 1.91, glu 131. Lactic acid 2.9. Troponin 0.054. EKG sinus tachycardia with RBBB. CXR showed COPD with patchy interstitial densities increased from previous CXRs. Patient is admitted for further workup and management. Patient seen by pulmonology and started on IV Zosyn and Bactrim. Patient also on IV steroids. Patient was on BiPAP. Patient weaned down to Airvo. Patient had another bronchoscopy done on 06/24/2024 that showed tracheobronchomalacia with copious thick secretions and mucous plugging. Sputum culture obtained at this time showing Aspergillus fumigatus, stenotrophomonas maltophilia, and Eden albicans. Patient currently on Bactrim 352 mg IVPB every 8 hours Physical exam: Patient was seen and fully evaluated at bedside this morning. He was visiting with family members at bedside. He currently remains on Airvo, but does report breathing slightly better. He is currently eating breakfast and denies any other complaints, questions, or needs at this time. He continues to have noted conversational dyspnea. Vital signs reviewed and stable. General: Nontoxic, no distress and appears stated age. Derm: Skin warm and dry, normal coloration for ethnicity. Head: Atraumatic, normocephalic and symmetric. Eyes: EOM's intact, no lid lag, and anicteric sclera Mouth: no lip lesions, mucus membranes moist Cardiovascular: regular rate and rhythm with normal S1S2, no murmur, positive posterior tibial pulses bilaterally, and cap refill < 2 seconds. Lungs: Respirations even, regular, and unlabored on Airvo. Lungs diminished with diffuse expiratory wheezes. No rhonchi or rails noted this morning. Abdominal: soft, nontender to palpation, no guarding, no appreciable organomegaly Ext: ROM intact. No gross muscle atrophy, no edema, no contractures Neuro: Speech clear, face symmetrical and CN II-XII grossly intact with no noted focal neuro deficits Psych: Alert and oriented to person, place, time, and situation. Appropriate and pleasant affect. Assessment and Plan of Care: Acute on chronic hypoxic respiratory failure, likely from COVID sequelae with development of pseudomonas pneumonia Sepsis upon admission, secondary to above Acute on chronic COPD exacerbation, secondary to above -Patient in the last month had BAL cultures that were positive for Pseudomonas and stenotrophomonas maltophilia -Continue IV antibiotics with Bactrim 352 mg every 8 hours. Day #6 -Continue with supplemental oxygen maintain SpO2 equal to or greater than 90%. Patient currently on Airvo. Wean O2 as tolerated -Sputum culture positive for aspergillus fumigatus, stenotrophomonas maltophilia, and Eden albicans -Infectious disease following, reviewed documentation in chart. -Pulmonology following, took patient for bronchoscopy with BAL on 06/24/2024 which revealed tracheobronchomalacia with copious thick secretions and mucous plugging. -Follow-up on cultures from bronchoscopy -Continue with Symbicort 2 puffs INH BID. DuoNebs scheduled Q4H and as needed for wheezing/shortness of breath. Singulair 10 mg PO HS, and IV steroids with SoluMedrol 60 mg IV Q6H. -Repeat chest x-ray tomorrow morning. Elevated troponin -Troponins flat and ACS ruled out -Continue with ASA 81 mg PO QD. Lipitor 40 mg PO QHS. Plavix 75 mg PO QD. Metoprolol 25 mg PO QD. 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 BRITT resolved and renal function back at baseline with BUN of 25, creatinine of 1.09, and GFR of 63. Lactic acidosis -Resolved Acute blood loss anemia -Patient's hemoglobin was trending down and subcu Lovenox for DVT prophylaxis was discontinued and orders placed for SCDs. -Today hemoglobin is 9.5 and stable -Patient at this time is too unstable for any endoscopic procedures Chronic conditions: Systolic CHF with EF 40-45%: Appears euvolemic. Hypertension: Metoprolol as above. Dyslipidemia: Lipitor as above. Non-Hodgkins lymphoma CAD with CABG: ASA, Lipitor, Plavix, Metoprolol as above. Carotid stenosis with endarterectomy: ASA, Lipitor, Plavix, as above. Data and imaging reviewed: Morning labs reviewed. CBC showing stable normocytic anemia with hemoglobin of 9.9. BMP showing stable renal function at baseline with BUN of 23, creatinine of 1.16 GFR of 59. Blood glucose was elevated at 140. Vital signs reviewed. Blood pressure 147/76, heart rate 89, respiratory rate 18, temp 97.9 F, and SpO2 of 91% on Airvo with FiO2 of 60%. Sputum culture positive for aspergillus fumigatus, stenotrophomonas maltophilia, and Eden albicans. CODE STATUS: Full code DVT prophylaxis: SCDs Anticipated discharge date: Pending clinical course Anticipated discharge place: Pending clinical course Patient was seen independently by Nurse Pracitioner. This document was prepared using [employer] dictation software. Please allow for errors in [employer], while rare they do occur. I reviewed the documentation as provided by the MICHELE above, who is the original author of this note. I agree with the documented assessment and plan, with the following changes: none Objective - Vital Signs Vital signs: Vital Signs Temp 98.3 F 06/26/24 20:00 Pulse 92 06/27/24 04:00 Resp 20 06/27/24 04:00 BP 153/80 06/27/24 04:00 Pulse Ox 93 L 06/27/24 04:00 FiO2 55 06/26/24 08:47 Intake & Output 06/26/24 06/27/24 06/27/24 18:59 06:59 18:59 Intake Total 358 Output Total 2700 Balance -2342 Weight 68.3 kg Intake: Oral 358 Output: Urine 2700 Other: Voiding Method Indwelling Catheter Indwelling Catheter - Labs CBC & Chem 7: 06/27/24 06:04 06/27/24 06:04 Labs: Abnormal Lab Results - Last 24 Hours (Table) 06/26/24 06/26/24 06/26/24 Range/Units 11:38 16:12 19:50 RBC (4.30-5.90) m/uL Hgb (13.0-17.5) gm/dL Hct (39.0-53.0) % Sodium (137-145) mmol/L BUN (9-20) mg/dL Glucose (74-99) mg/dL POC Glucose (mg/dL) 214 H 275 H 234 H (70-110) mg/dL 06/27/24 06/27/24 06/27/24 Range/Units 05:58 06:04 06:04 RBC 3.16 L (4.30-5.90) m/uL Hgb 9.9 L (13.0-17.5) gm/dL Hct 28.3 L (39.0-53.0) % Sodium 135 L (137-145) mmol/L BUN 23 H (9-20) mg/dL Glucose 140 H (74-99) mg/dL POC Glucose (mg/dL) 168 H (70-110) mg/dL Microbiology - Last 24 Hours (Table) 06/24/24 15:00 Gram Stain - Preliminary Bronchial Washings - Random Bronchial Washings Culture - Preliminary
--- NOTE | 2024-06-27 15:49 | P.PN ---
Subjective Progress Note Date: 06/27/24 On 06/22/2024, the patient is being seen for a follow-up. This morning, the patient is on a BiPAP pressure of 16 over 5 cm of water with FiO2 of 60% and the patient is on a lactated Ringer at rate of 50 cc an hour. Chest x-ray was done this morning and it showed patchy infiltrates in lung bases more so on the right consistent with pneumonia. Most recent bronchoscopy yielded stenotrophomonas and the patient has grown Pseudomonas in the past. The patient is currently on IV Zosyn. He remains on DuoNeb nebulized treatments [id number]. He is on Symbicort. He is on IV Solu-Medrol. He is awake and alert and communicating. The white cell count is at 7 with hemoglobin of 10 and platelet count of 189. BUN is 27 with a creatinine of 1.36 and a sodium levels at 138. He is weak and quite debilitated on a chronic basis. Bactrim will be also added to his regimen. On 06/23/2024, the patient is still on Airvo at 35 L with an FiO2 of 50% with a pulse ox of 96%. Feels somewhat improved compared to yesterday. Continues to have a congested cough with limited amount of sputum production. Antibiotic modification was done yesterday and the patient is currently on a combination of Zosyn and IV Bactrim. Renal function remained stable. On today's blood work, the creatinine is at 1.24 with a BUN of 23. Rest of the electrolytes are all stable and within normal limits. White cell count of 5.3 with a hemoglobin of 9. A repeat chest x-ray from today shows some bibasilar pulmonary filtrates slightly worse on the left along with background COPD. Remains on bronchodilators. Remains on steroids. Remains on lactated Ringer at 50 cc an hour. Remains on Symbicort and DuoNeb updrafts [id number]. Home medications have been also resumed. 06/24/2024, the patient remains on Airvo 35 L with an FiO2 of 55%. The patient continues to have respiratory difficulties, cough, congestion, unable to bring up much of sputum. No significant improvement in respiratory status over the past 24 hours. The patient remains on a combination of IV Bactrim and IV Zosyn. The white cell count is at 8.1. Hemoglobin is 8.6 and a platelet count of 142. BUN is 25 with a creatinine of 1.22. He is getting progressively more debilitated and weak. Spending most of the time in bed. Oral intake is diminished and the patient had minimal amount of old. Earlier this morning. I plan to do a bronchoscopy on this patient in the afternoon to further optimize her respiratory status. Suspect mucous plugs. 06/25/2024, the patient is post bronchoscopy. The patient remains on Airvo 35 L with an FiO2 of 55%. Continues to struggle with his breathing. Cough and congestion is improved compared to yesterday post bronchoscopy. Repeat bronchoalveolar lavage was done and results are still pending. Most recent sputum sample is showing Eden, Aspergillus and stenotrophomonas. The patient remains on Bactrim IV. Remains on IV Solu-Medrol. Remains on DuoNeb nebulized treatments [id number]. The white cell count of 7.4 with a hemoglobin 9.5 and a platelet count of 197. Sodium is at 136, BUN 25 with a creatinine of 1.1. ID is on the case. No other new complaints otherwise for now. 06/26/2024, patient is being seen for a follow-up. The patient is sitting up in a chair. Awaiting the results from the bronchoscopy and bronchial lavage. Most recent sputum analysis was positive for stenotrophomonas in addition to Aspergillus and candidal elements. Earlier this morning, the patient was on Airvo. He was at 35 L with an FiO2 of 55%. I took him off the Airvo and I put him on 60 days of oxygen by nasal cannula and his current pulse ox 94%. He remains bronchospastic and wheezy. Awaiting consistent 0.8 edema 9.5 and a platelet count of 199. BUN is 25 with a creatinine of 1.09 and sodium levels at 135. Communicating. Awake. No chest pain. No other new complaints since yesterday. Awaiting results of the bronchial lavage and the patient remains on IV Bactrim. In terms of his renal function, the patient's creatinine is stable at 1.09. 06/27/2024, the patient continues to have labored breathing. After being on nasal cannula for yesterday, this patient became more short of breath this morning. Based on that, the patient was placed again on Airvo and the patient is currently on 50 L with FiO2 of 60%. Pulse ox in the order of 94 to 95%. He remains on IV Bactrim. Continues to encounter cough and congestion. Unable to bring up much of sputum. No chest pain. Looks quite lethargic and weak. His white cell count today is at 10.2 with a hemoglobin 9.9. BUN is 23 with a creatinine of 1.1. Rest of the medication remains unchanged. Remains on IV Solu-Medrol. Remains on DuoNeb nebulized treatments [id number]. Symbicort will be discontinued and the patient was placed on a combination of Perforomist and Pulmicort. Oral intake remains quite diminished. Objective - Vital Signs Vital signs: Vital Signs Temp 98.8 F 06/27/24 15:33 Pulse 86 06/27/24 15:33 Resp 18 06/27/24 15:33 BP 131/73 06/27/24 15:33 Pulse Ox 97 06/27/24 15:33 FiO2 60 06/27/24 13:07 Intake & Output 06/26/24 06/27/24 06/27/24 18:59 06:59 18:59 Intake Total 358 Output Total 2700 700 Balance -2342 -700 Weight 68.3 kg Intake: Oral 358 Output: Urine 2700 700 Other: Voiding Method Indwelling Catheter Indwelling Catheter Indwelling Catheter - Exam Patient is lethargic and her breathing is labored and the patient is currently on Airvo, 50 L with FiO2 of 60% HEENT examination is grossly unremarkable. Mucous membranes are moist. No oral lesions. Neck supple. Full range of motion. No adenopathy thyromegaly or neck vein distention. Cardiovascular examination reveals regular rhythm rate. S1-S2 normal. No S3 or S4. No discernible murmur noted. Heart sounds are distant. Lungs reveal scattered bilateral rhonchi and expiratory wheezes. No crackles. Breath sounds equal but diminished throughout. Abdomen soft and without bowel sounds. No masses or tenderness. Extremities are intact. No cyanosis clubbing or edema. Skin is without rash or lesion. Neurologic examination is brief but nonfocal. - Labs CBC & Chem 7: 06/27/24 06:04 06/27/24 06:04 Labs: Abnormal Lab Results - Last 24 Hours (Table) 06/26/24 06/26/24 06/27/24 Range/Units 16:12 19:50 05:58 RBC (4.30-5.90) m/uL Hgb (13.0-17.5) gm/dL Hct (39.0-53.0) % Sodium (137-145) mmol/L BUN (9-20) mg/dL Glucose (74-99) mg/dL POC Glucose (mg/dL) 275 H 234 H 168 H (70-110) mg/dL 06/27/24 06/27/24 06/27/24 Range/Units 06:04 06:04 11:35 RBC 3.16 L (4.30-5.90) m/uL Hgb 9.9 L (13.0-17.5) gm/dL Hct 28.3 L (39.0-53.0) % Sodium 135 L (137-145) mmol/L BUN 23 H (9-20) mg/dL Glucose 140 H (74-99) mg/dL POC Glucose (mg/dL) 129 H (70-110) mg/dL Microbiology - Last 24 Hours (Table) 06/24/24 15:00 Gram Stain - Final Bronchial Washings - Random Bronchial Washings Culture - Final Assessment and Plan Plan: Acute hypoxic respiratory failure, suspecting a gram-negative pneumonia with as the patient has a bilateral lower lobe pulmonary filtrates and previous bron choscopy remarkable lavage yielded stenotrophomonas and Pseudomonas. Patient was on Airvo at 50 L with FiO2 of 60%. Status post bronchoscopy and repeat bronchial lavage cultures are still pending.. Overall respiratory status is stable and the patient is currently on IV Bactrim. There is sputum sample that was obtained during this current admission showed Eden, Aspergillus and stenotrophomonas. The patient is status post bronchoscopy done on 06/24/2024. Noted the patient was on nasal cannula at 6 L and earlier this morning, the patient was switched back to Airvo due to ongoing shortness of breath and hypoxemia. Recurrent respiratory tract infection/pneumonia and the patient continues to lower lobe consolidation previous culture showing gram-negative bacterial infection including stenotrophomonas. Suspect ongoing mucous plugging, leading to shortness of breath Recent hospitalization for a COPD exacerbation and a COVID-19 infection, Acuity of exacerbation secondary to above Previous hospitalization for a pseudomonal tracheobronchitis/pneumonia status post repeat bronchoscopy that was done on 06/03/2024 the patient is still on oral ciprofloxacin, currently on IV Zosyn. Repeat sputum sample and the bronchial lavage that was done on this patient showed stenotrophomonas. Oxygen dependent chronic obstructive pulmonary disease with an FEV1 value 39% of predicted Chronic tobacco dependence of greater than 60 years Right upper lobe PET avid pulmonary nodule which is being monitored on outpatient basis, measuring up to 1.4 cm in size, enlarging in size and the patient will need an SBRT at a later stage on outpatient basis. History of non-Hodgkin's lymphoma Chronic stage III kidney disease Coronary disease with previous coronary artery bypass surgery in 2001 History of abdominal aortic aneurysm status post stent placement in March 2022 Carotid stenosis status post endarterectomy History of ESBL E. coli and bronchial wash in 2021 Hyperlipidemia Hypertension Plan: Continue Airvo at the same setting Aggressive pulmonary toileting and chest PT Repeat bronchoscopy and removal of mucous plugs was done on 06/24/2024, the results of bronchial lavage, repeat cultures are still pending Continue IV Bactrim Monitor renal function, renal function stable Continue bronchodilators Continue steroids and the patient is currently on IV Solu-Medrol Stop the Symbicort and put the patient on a combination of Perforomist and Pulmicort Chest x-ray in the morning Prognosis poor based on above-mentioned comorbidities. Will continue to follow. Will continue to follow
[2024-06-27 16:18] LABS: Glucose,Whole Blood 298 mg/dL (70-110)
[2024-06-27] MEDS: FUROSEMIDE 10 MG/ML 4 ML VIAL IV STA (16:26)
[2024-06-27 19:55] LABS: Glucose,Whole Blood 236 mg/dL (70-110)
[2024-06-27] MEDS: FORMOTEROL FUMARATE 20 MCG/2 ML NEBU INHALATION SCH (20:31)
[2024-06-27] MEDS: BUDESONIDE 0.5 MG/2 ML NEBU INHALATION SCH (20:31)
[2024-06-27] MEDS: TIOTROPIUM 2.5 MCG INHALER INHALATION SCH (21:01)
[2024-06-28 06:19] LABS: Glucose,Whole Blood 317 mg/dL (70-110)
--- NOTE | 2024-06-28 07:17 | XR ---
EXAMINATION TYPE: XR chest 1V DATE OF EXAM: 06/28/2024 COMPARISON: 06/25/2024 HISTORY: Shortness of breath TECHNIQUE: Single frontal view of the chest is obtained. FINDINGS: The bilateral predominantly lower lobe interstitial and airspace opacity, right greater th an left is unchanged compared to previous. There is been prior surgery. There is no pneumothorax. The osseous structures are intact. IMPRESSION: No significant interval change in the bilateral cardiopulmonary process. [facility], , 06/28/2024 7:15 AM
[2024-06-28 07:33] LABS: African American GFR (CKD) 61 (>60 ml/min/1.73 sqM); Non-African American GFR(CKD) 53 (>60 ml/min/1.73 sqM)
[2024-06-28 08:43] LABS: HCT 26.3 % (39.0-53.0); HGB 8.6 gm/dL (13.0-17.5); MCH 30.4 pg (25.0-35.0); MCHC 32.5 g/dL (31.0-37.0); MCV 93.6 fL (80.0-100.0); Mean Platelet Volume 9.3; Platelet Count 187 k/uL (150-450); RBC 2.81 m/uL (4.30-5.90); RDW 15.1 % (11.5-15.5); WBC 8.4 k/uL (3.8-10.6)
[2024-06-28 08:49] LABS: ALT 32 U/L (4-49); AST 36 U/L (17-59); Albumin 2.5 g/dL (3.5-5.0); Alkaline Phosphatase 69 U/L (38-126); Anion Gap 4 mmol/L; Blood Urea Nitrogen 26 mg/dL (9-20); Calcium 8.1 mg/dL (8.4-10.2); Carbon Dioxide 26 mmol/L (22-30); Chloride 101 mmol/L (98-107); Glucose 279 mg/dL (74-99); Magnesium 1.7 mg/dL (1.6-2.3); Potassium 4.8 mmol/L (3.5-5.1); Sodium 131 mmol/L (137-145); Total Bilirubin 0.2 mg/dL (0.2-1.3); Total Protein 4.4 g/dL (6.3-8.2)
[2024-06-28] MEDS: FUROSEMIDE 10 MG/ML 4 ML VIAL IV STA (11:26)
[2024-06-28 11:50] LABS: Glucose,Whole Blood 112 mg/dL (70-110)
--- NOTE | 2024-06-28 12:37 | P.PN ---
Subjective Progress Note Date: 06/28/24 On 06/22/2024, the patient is being seen for a follow-up. This morning, the patient is on a BiPAP pressure of 16 over 5 cm of water with FiO2 of 60% and the patient is on a lactated Ringer at rate of 50 cc an hour. Chest x-ray was done this morning and it showed patchy infiltrates in lung bases more so on the right consistent with pneumonia. Most recent bronchoscopy yielded stenotrophomonas and the patient has grown Pseudomonas in the past. The patient is currently on IV Zosyn. He remains on DuoNeb nebulized treatments [id number]. He is on Symbicort. He is on IV Solu-Medrol. He is awake and alert and communicating. The white cell count is at 7 with hemoglobin of 10 and platelet count of 189. BUN is 27 with a creatinine of 1.36 and a sodium levels at 138. He is weak and quite debilitated on a chronic basis. Bactrim will be also added to his regimen. On 06/23/2024, the patient is still on Airvo at 35 L with an FiO2 of 50% with a pulse ox of 96%. Feels somewhat improved compared to yesterday. Continues to have a congested cough with limited amount of sputum production. Antibiotic modification was done yesterday and the patient is currently on a combination of Zosyn and IV Bactrim. Renal function remained stable. On today's blood work, the creatinine is at 1.24 with a BUN of 23. Rest of the electrolytes are all stable and within normal limits. White cell count of 5.3 with a hemoglobin of 9. A repeat chest x-ray from today shows some bibasilar pulmonary filtrates slightly worse on the left along with background COPD. Remains on bronchodilators. Remains on steroids. Remains on lactated Ringer at 50 cc an hour. Remains on Symbicort and DuoNeb updrafts [id number]. Home medications have been also resumed. 06/24/2024, the patient remains on Airvo 35 L with an FiO2 of 55%. The patient continues to have respiratory difficulties, cough, congestion, unable to bring up much of sputum. No significant improvement in respiratory status over the past 24 hours. The patient remains on a combination of IV Bactrim and IV Zosyn. The white cell count is at 8.1. Hemoglobin is 8.6 and a platelet count of 142. BUN is 25 with a creatinine of 1.22. He is getting progressively more debilitated and weak. Spending most of the time in bed. Oral intake is diminished and the patient had minimal amount of old. Earlier this morning. I plan to do a bronchoscopy on this patient in the afternoon to further optimize her respiratory status. Suspect mucous plugs. 06/25/2024, the patient is post bronchoscopy. The patient remains on Airvo 35 L with an FiO2 of 55%. Continues to struggle with his breathing. Cough and congestion is improved compared to yesterday post bronchoscopy. Repeat bronchoalveolar lavage was done and results are still pending. Most recent sputum sample is showing Eden, Aspergillus and stenotrophomonas. The patient remains on Bactrim IV. Remains on IV Solu-Medrol. Remains on DuoNeb nebulized treatments [id number]. The white cell count of 7.4 with a hemoglobin 9.5 and a platelet count of 197. Sodium is at 136, BUN 25 with a creatinine of 1.1. ID is on the case. No other new complaints otherwise for now. 06/26/2024, patient is being seen for a follow-up. The patient is sitting up in a chair. Awaiting the results from the bronchoscopy and bronchial lavage. Most recent sputum analysis was positive for stenotrophomonas in addition to Aspergillus and candidal elements. Earlier this morning, the patient was on Airvo. He was at 35 L with an FiO2 of 55%. I took him off the Airvo and I put him on 60 days of oxygen by nasal cannula and his current pulse ox 94%. He remains bronchospastic and wheezy. Awaiting consistent 0.8 edema 9.5 and a platelet count of 199. BUN is 25 with a creatinine of 1.09 and sodium levels at 135. Communicating. Awake. No chest pain. No other new complaints since yesterday. Awaiting results of the bronchial lavage and the patient remains on IV Bactrim. In terms of his renal function, the patient's creatinine is stable at 1.09. 06/27/2024, the patient continues to have labored breathing. After being on nasal cannula for yesterday, this patient became more short of breath this morning. Based on that, the patient was placed again on Airvo and the patient is currently on 50 L with FiO2 of 60%. Pulse ox in the order of 94 to 95%. He remains on IV Bactrim. Continues to encounter cough and congestion. Unable to bring up much of sputum. No chest pain. Looks quite lethargic and weak. His white cell count today is at 10.2 with a hemoglobin 9.9. BUN is 23 with a creatinine of 1.1. Rest of the medication remains unchanged. Remains on IV Solu-Medrol. Remains on DuoNeb nebulized treatments [id number]. Symbicort will be discontinued and the patient was placed on a combination of Perforomist and Pulmicort. Oral intake remains quite diminished. 06/28/2024, the patient continues to struggle with his breathing. He remains on Airvo and is alternating it with a BiPAP. I am going to switch to BiPAP at a pressure of 10 over 5 cm of water and FiO2 of 50%. Meanwhile, this morning, he remains on Airvo and is currently on 50 L with an FiO2 of 60%. Congested cough. Remains bronchospastic and wheezy. Remains weak and debilitated. Oral intake remains quite diminished. Repeat arthroscopy and lavage yielded no microbial growth and the most recent cultures came back negative. Meanwhile, based on the earlier cultures of stenotrophomonas, the patient remains on Bactrim. Creatinine is stable at 1.2. Responded adequately to Lasix and the patient produced approximately 2.8 L of negative fluid balance over the past 24 hours. Potassium is at 4.8. WBC count is at 8.4 with hemoglobin 8.6. Chest x-ray findings are essentially unchanged and the patient has stable lower lobe pulmonary filtrates which are essentially unchanged. Objective - Vital Signs Vital signs: Vital Signs Temp 98.2 F 06/28/24 08:52 Pulse 102 H 06/28/24 08:52 Resp 22 06/28/24 08:52 BP 130/67 06/28/24 08:52 Pulse Ox 92 L 06/28/24 08:52 FiO2 50 06/28/24 08:52 Intake & Output 06/27/24 06/28/24 06/28/24 18:59 06:59 18:59 Intake Total 300 Output Total 1600 1575 200 Balance -1600 -5405 -200 Intake: Intake, IV Titration 300 Amount Sodium Chloride 0.9% 1, 300 000 ml @ 75 mls/hr IV . [id number] Rx#:[id number] Output: Urine 1600 1575 200 Other: Voiding Method Indwelling Catheter Indwelling Catheter - Exam Patient is lethargic and her breathing is labored and the patient is currently on Airvo, 50 L with FiO2 of 60% HEENT examination is grossly unremarkable. Mucous membranes are moist. No oral lesions. Neck supple. Full range of motion. No adenopathy thyromegaly or neck vein distention. Cardiovascular examination reveals regular rhythm rate. S1-S2 normal. No S3 or S4. No discernible murmur noted. Heart sounds are distant. Lungs reveal scattered bilateral rhonchi and expiratory wheezes. No crackles. Breath sounds equal but diminished throughout. Abdomen soft and without bowel sounds. No masses or tenderness. Extremities are intact. No cyanosis clubbing or edema. Skin is without rash or lesion. Neurologic examination is brief but nonfocal. - Labs CBC & Chem 7: 06/28/24 06:47 06/28/24 06:47 Labs: Abnormal Lab Results - Last 24 Hours (Table) 06/27/24 06/27/24 06/27/24 Range/Units 11:35 16:16 19:54 RBC (4.30-5.90) m/uL Hgb (13.0-17.5) gm/dL Hct (39.0-53.0) % Sodium (137-145) mmol/L BUN (9-20) mg/dL Creatinine (0.66-1.25) mg/dL Glucose (74-99) mg/dL POC Glucose (mg/dL) 129 H 298 H 236 H (70-110) mg/dL Calcium (8.4-10.2) mg/dL Total Protein (6.3-8.2) g/dL Albumin (3.5-5.0) g/dL 06/28/24 06/28/24 06/28/24 Range/Units 06:17 06:47 06:47 RBC 2.81 L (4.30-5.90) m/uL Hgb 8.6 L (13.0-17.5) gm/dL Hct 26.3 L (39.0-53.0) % Sodium 131 L (137-145) mmol/L BUN 26 H (9-20) mg/dL Creatinine 1.27 H (0.66-1.25) mg/dL Glucose 279 H (74-99) mg/dL POC Glucose (mg/dL) 317 H (70-110) mg/dL Calcium 8.1 L (8.4-10.2) mg/dL Total Protein 4.4 L (6.3-8.2) g/dL Albumin 2.5 L (3.5-5.0) g/dL Microbiology - Last 24 Hours (Table) 06/24/24 15:00 Gram Stain - Final Bronchial Washings - Random Bronchial Washings Culture - Final Assessment and Plan Plan: Acute hypoxic respiratory failure, suspecting a gram-negative pneumonia with as the patient has a bilateral lower lobe pulmonary filtrates and previous bronchoscopy remarkable lavage yielded stenotrophomonas and Pseudomonas. Patient was on Airvo at 50 L with FiO2 of 60%. Status post bronchoscopy and repeat bronchial lavage cultures are still pending.. Overall respiratory status is stable and the patient is currently on IV Bactrim. There is sputum sample that was obtained during this current admission showed Eden, Aspergillus and stenotrophomonas. The patient is status post bronchoscopy done on 06/24/2024. The repeat cultures are negative thus far. The patient remains on Bactrim. The patient is alternating between BiPAP and Airvo high flow oxygen system. Recurrent respiratory tract infection/pneumonia and the patient continues to lower lobe consolidation previous culture showing gram-negative bacterial infection including stenotrophomonas. Suspect ongoing mucous plugging, leading to shortness of breath Recent hospitalization for a COPD exacerbation and a COVID-19 infection, Acute COPD exacerbation secondary to above Previous hospitalization for a pseudomonal tracheobronchitis/pneumonia status post repeat bronchoscopy that was done on 06/03/2024 the patient is still on oral ciprofloxacin, currently on IV Zosyn. Repeat sputum sample and the bronchial lavage that was done on this patient showed stenotrophomonas. Oxygen dependent chronic obstructive pulmonary disease with an FEV1 value 39% of predicted Chronic tobacco dependence of greater than 60 years Right upper lobe PET avid pulmonary nodule which is being monitored on outpatient basis, measuring up to 1.4 cm in size, enlarging in size and the patient will need an SBRT at a later stage on outpatient basis. History of non-Hodgkin's lymphoma Chronic stage III kidney disease Coronary disease with previous coronary artery bypass surgery in 2001 History of abdominal aortic aneurysm status post stent placement in March 2022 Carotid stenosis status post endarterectomy History of ESBL E. coli and bronchial wash in 2021 Hyperlipidemia Hypertension Plan: Continue Airvo and alternate with BiPAP Aggressive pulmonary toileting and chest PT Repeat bronchoscopy and removal of mucous plugs was done on 06/24/2024, the results of bronchial lavage, repeat cultures are negative thus far Continue IV Bactrim Monitor renal function, renal function stable Continue bronchodilators Continue steroids and the patient is currently on IV Solu-Medrol Stop the Symbicort and put the patient on a combination of Perforomist and Pulmicort Chest x-ray from today is stable The patient was given IV Lasix with excellent diuresis Prognosis poor based on above-mentioned comorbidities. Will continue to follow. Will continue to follow
--- NOTE | 2024-06-28 13:04 | P.PN ---
Subjective Progress Note Date: 06/27/24 Principal diagnosis: Reason for follow-up is pneumonia Patient is a 79-year-old male with a past medical history significant for non-Hodgkin lymphoma COPD hypertension hyperlipidemia heart failure recently diagnosed with a COVID-19 presented to hospital for evaluation of increasing shortness of breath and cough sputum production did have patient evaluated on the chest x-ray concerning for pneumonia. On today's evaluation that is 06/27/2024,the patient remains to be afebrile, patient is off and on on the BiPAP and high flow Airvo denies any worsening shortness of breath no he did have a cough but no worsening cough or sputum production no vomiting or diarrhea has been reported. Patient did have a white count of 10.2, creatinine is 1.16 Objective - Vital Signs Vital signs: Vital Signs Temp 98.8 F 06/27/24 15:33 Pulse 84 06/27/24 20:31 Resp 18 06/27/24 15:33 BP 131/73 06/27/24 15:33 Pulse Ox 97 06/27/24 15:33 FiO2 60 06/27/24 20:31 Intake & Output 06/27/24 06/27/24 06/28/24 06:59 18:59 06:59 Output Total 1600 Balance -1600 Weight 68.3 kg Output: Urine 1600 Other: Voiding Method Indwelling Catheter Indwelling Catheter - Exam GENERAL DESCRIPTION: An elderly male up in bed in no distress RESPIRATORY SYSTEM: Unlabored breathing , coarse breath sounds bilaterally HEART: S1 S2 regular rate and rhythm , ABDOMEN: Soft , no tenderness EXTREMITIES: No edema feet - Labs CBC & Chem 7: 06/28/24 06:47 06/28/24 06:47 Labs: Abnormal Lab Results - Last 24 Hours (Table) 06/27/24 06/27/24 06/27/24 Range/Units 05:58 06:04 06:04 RBC 3.16 L (4.30-5.90) m/uL Hgb 9.9 L (13.0-17.5) gm/dL Hct 28.3 L (39.0-53.0) % Sodium 135 L (137-145) mmol/L BUN 23 H (9-20) mg/dL Glucose 140 H (74-99) mg/dL POC Glucose (mg/dL) 168 H (70-110) mg/dL 06/27/24 06/27/24 06/27/24 Range/Units 11:35 16:16 19:54 RBC (4.30-5.90) m/uL Hgb (13.0-17.5) gm/dL Hct (39.0-53.0) % Sodium (137-145) mmol/L BUN (9-20) mg/dL Glucose (74-99) mg/dL POC Glucose (mg/dL) 129 H 298 H 236 H (70-110) mg/dL Microbiology - Last 24 Hours (Table) 06/24/24 15:00 Gram Stain - Final Bronchial Washings - Random Bronchial Washings Culture - Final Assessment and Plan (1) Pneumonia Current Visit: Yes Status: Acute Code(s): J18.9 - PNEUMONIA, UNSPECIFIED ORGANISM SNOMED Code(s): 970601012 (2) Sepsis Current Visit: No Status: Acute Code(s): A41.9 - SEPSIS, UNSPECIFIED ORGANISM SNOMED Code(s): 89615492 Plan: 1patient presented to hospital with sepsis in this patient who did have fever tachycardia mild hypotension source is likely pneumonia in this patient who recently did have a COVID-19 will need to cover for resistant gram negative to be the likely etiology and the patient recently grew Pseudomonas in his BAL culture 2-blood cultures are so far negative initially sputum has been negative, urine for Legionella antigen was negative mycoplasma IgM not elevated, repeat sputum is growing stenotrophomonas as well as Aspergillus and Eden 3 we currently waiting for Aspergillus CF antibodies and Aspergillus galactoma nnan 4patient to continue with the IV Bactrim to cover for stenotrophomonas to which the pathogen is sensitive and wait for the BAL culture to finalize Dictation was produced using [employer] dictation software. please excuse any grammatical, word or spelling errors. Time with Patient: Less than 30
--- NOTE | 2024-06-28 13:04 | P.PN ---
Subjective Progress Note Date: 06/28/24 Principal diagnosis: Reason for follow-up is pneumonia Patient is a 79-year-old male with a past medical history significant for non-Hodgkin lymphoma COPD hypertension hyperlipidemia heart failure recently diagnosed with a COVID-19 presented to hospital for evaluation of increasing shortness of breath and cough sputum production did have patient evaluated on the chest x-ray concerning for pneumonia. On today's evaluation that is 06/28/2024, the patient continues to be afebrile, the patient is on high flow nasal cannula Airvo however has been off and on on the BiPAP patient denies having any chest pain no worsening cough or sputum production no vomiting or diarrhea has been reported. The patient did have white count of 8.4 creatinine is 1.27 BAL culture has been negative so far, Aspergillus antibodies and galactomannan is pending Objective - Vital Signs Vital signs: Vital Signs Temp 98.8 F 06/28/24 11:19 Pulse 85 06/28/24 11:19 Resp 18 06/28/24 11:19 BP 125/70 06/28/24 11:19 Pulse Ox 94 L 06/28/24 11:19 FiO2 50 06/28/24 11:23 Intake & Output 06/27/24 06/28/24 06/28/24 18:59 06:59 18:59 Intake Total 300 Output Total 1600 1575 500 Balance -7661 -9655 -500 Intake: Intake, IV Titration 300 Amount Sodium Chloride 0.9% 1, 300 000 ml @ 75 mls/hr IV . [id number] [facility] Rx#:[id number] Output: Urine 1600 1575 500 Other: Voiding Method Indwelling Catheter Indwelling Catheter Indwelling Catheter - Exam GENERAL DESCRIPTION: An elderly male up in bed in no distress RESPIRATORY SYSTEM: Unlabored breathing , coarse breath sounds bilaterally HEART: S1 S2 regular rate and rhythm , ABDOMEN: Soft , no tenderness EXTREMITIES: No edema feet - Labs CBC & Chem 7: 06/28/24 06:47 06/28/24 06:47 Labs: Abnormal Lab Results - Last 24 Hours (Table) 06/27/24 06/27/24 06/28/24 Range/Units 16:16 19:54 06:17 RBC (4.30-5.90) m/uL Hgb (13.0-17.5) gm/dL Hct (39.0-53.0) % Sodium (137-145) mmol/L BUN (9-20) mg/dL Creatinine (0.66-1.25) mg/dL Glucose (74-99) mg/dL POC Glucose (mg/dL) 298 H 236 H 317 H (70-110) mg/dL Calcium (8.4-10.2) mg/dL Total Protein (6.3-8.2) g/dL Albumin (3.5-5.0) g/dL 06/28/24 06/28/24 Range/Units 06:47 06:47 RBC 2.81 L (4.30-5.90) m/uL Hgb 8.6 L (13.0-17.5) gm/dL Hct 26.3 L (39.0-53.0) % Sodium 131 L (137-145) mmol/L BUN 26 H (9-20) mg/dL Creatinine 1.27 H (0.66-1.25) mg/dL Glucose 279 H (74-99) mg/dL POC Glucose (mg/dL) (70-110) mg/dL Calcium 8.1 L (8.4-10.2) mg/dL Total Protein 4.4 L (6.3-8.2) g/dL Albumin 2.5 L (3.5-5.0) g/dL Microbiology - Last 24 Hours (Table) 06/24/24 15:00 Gram Stain - Final Bronchial Washings - Random Bronchial Washings Culture - Final Assessment and Plan (1) Pneumonia Current Visit: Yes Status: Acute Code(s): J18.9 - PNEUMONIA, UNSPECIFIED ORGANISM SNOMED Code(s): 169606493 (2) Sepsis Current Visit: No Status: Acute Code(s): A41.9 - SEPSIS, UNSPECIFIED ORGANISM SNOMED Code(s): 57209598 Plan: 1patient presented to hospital with sepsis in this patient who did have fever tachycardia mild hypotension source is likely pneumonia in this patient who re cently did have a COVID-19 will need to cover for resistant gram negative to be the likely etiology and the patient recently grew Pseudomonas in his BAL culture 2-blood cultures are so far negative initial sputum has been negative, urine for Legionella antigen was negative mycoplasma IgM not elevated, repeat sputum is growing stenotrophomonas as well as Aspergillus and Eden 3 we currently waiting for Aspergillus CF antibodies and Aspergillus galactomannan 4patient to continue with the IV Bactrim to cover for stenotrophomonas, BAL culture has been negative so far Family at the bedside multiple questions answered Dictation was produced using [employer] dictation software. please excuse any gra mmatical, word or spelling errors. Time with Patient: Less than 30
[2024-06-28 13:14] LABS: Glucose,Whole Blood 216 mg/dL (70-110)
--- NOTE | 2024-06-28 13:45 | P.PN ---
Subjective Progress Note Date: 06/28/24 Hospital course: Patient is a very pleasant 79-year-old male with a past medical history of systolic CHF with EF 40 to 45%, COPD on 3L home O2, chronic kidney disease, hypertension, hyperlipidemia, non-Hodgkins lymphoma, CAD with CABG, AAA with stent, carotid stenosis with endarterectomy presents to the ED for shortness of breath. Apparently his O2 sat was in the 70s when EMS arrived on his 3L NC. Recently admitted from 06/05-06/07 for similar complaints, COVID + at that time, treated with bronchodilators, Zosyn, SoluMedrol and discharged on a Prednisone taper and to complete a course of Ciprofloxacin. He recently underwent bronchoscopy with BAL with Dr. Cano on 05/13 with cultures resulting in Pseudomonas and ariel albicans. He was started on Ciprofloxacin at that time. He underwent repeat bronchoscopy with BAL with Dr. Cano on 06/03 which grew stenotrophomonas maltophilia. He was continued on Ciprofloxacin and according to the patient has been taking it over the past 5-6 weeks. In the ED he underwent extensive evaluation. Tmax 100F, BP 119/62, HR 102, RR 40, 91% on 3L. CBC, Coag panel, CMP significant for RBC 4, Hg 12.4, Hct 35.8, PT 9.9, bicarb 33, BUN 39, Cr 1.91, glu 131. Lactic acid 2.9. Troponin 0.054. EKG sinus tachycardia with RBBB. CXR showed COPD with patchy interstitial densities increased from previous CXRs. Patient is admitted for further workup and management. Patient seen by pulmonology and started on IV Zosyn and Bactrim. Patient also on IV steroids. Patient was on BiPAP. Patient weaned down to Airvo. Patient had another bronchoscopy done on 06/24/2024 that showed tracheobronchomalacia with copious thick secretions and mucous plugging. Sputum culture obtained at this time showing Aspergillus fumigatus, stenotrophomonas maltophilia, and Ariel albicans. Patient currently on Bactrim 352 mg IVPB every 8 hours Physical exam: Patient was seen and fully evaluated at bedside this morning. He was lying in bed and remains on Airvo. Patient reports continued shortness of breath at this time and requesting to take a break from Airvo and be placed back on BiPAP to give his nose a rest. Manager Of Medical making some changes to BiPAP settings and this was discussed with respiratory therapist. Vital signs reviewed and stable. General: Nontoxic, no distress and appears stated age. Derm: Skin warm and dry, normal coloration for ethnicity. Head: Atraumatic, normocephalic and symmetric. Eyes: EOM's intact, no lid lag, and anicteric sclera Mouth: no lip lesions, mucus membranes moist Cardiovascular: regular rate and rhythm with normal S1S2, no murmur, positive posterior tibial pulses bilaterally, and cap refill < 2 seconds. Lungs: Respirations even, regular, and unlabored on Airvo. Lungs diminished with diffuse expiratory wheezes. No rhonchi or rails noted this morning. Abdominal: soft, nontender to palpation, no guarding, no appreciable organomeg michell Ext: ROM intact. No gross muscle atrophy, no edema, no contractures Neuro: Speech clear, face symmetrical and CN II-XII grossly intact with no noted focal neuro deficits Psych: Alert and oriented to person, place, time, and situation. Appropriate and pleasant affect. Assessment and Plan of Care: Acute on chronic hypoxic respiratory failure, likely from COVID sequelae with development of pseudomonas pneumonia Sepsis upon admission, secondary to above Acute on chronic COPD exacerbation, secondary to above -Patient in the last month had BAL cultures that were positive for Pseudomonas and stenotrophomonas maltophilia -Continue IV antibiotics with Bactrim 352 mg every 8 hours. Day #7 -Continue with supplemental oxygen maintain SpO2 equal to or greater than 90%. Patient currently on Airvo. Wean O2 as tolerated -Sputum culture positive for aspergillus fumigatus, stenotrophomonas maltophilia, and Ariel albicans. Repeat cultures from bronchoscopy negative showing no growth. -Infectious disease following, reviewed documentation in chart. -Pulmonology following, took patient for bronchoscopy with BAL on 06/24/2024 which revealed tracheobronchomalacia with copious thick secretions and mucous plugging. Discussed patient and plan in detail with fabricator industrial furnace. -Follow-up on cultures from bronchoscopy -Continue with Symbicort 2 puffs INH BID. DuoNebs scheduled Q4H and as needed for wheezing/shortness of breath. Singulair 10 mg PO HS, and IV steroids with SoluMedrol 60 mg IV Q6H. -Repeat chest x-ray completed this morning stable showing no changes including worsening or improvement.. Elevated troponin -Troponins flat and ACS ruled out -Continue with ASA 81 mg PO QD. Lipitor 40 mg PO QHS. Plavix 75 mg PO QD. Metoprolol 25 mg PO QD. 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 BRITT resolved and renal function back at baseline with BUN of 25, creatinine of 1.09, and GFR of 63. Lactic acidosis -Resolved Acute blood loss anemia -Patient's hemoglobin was trending down and subcu Lovenox for DVT prophylaxis was discontinued and orders placed for SCDs. -Today hemoglobin is 8.6 and stable -Patient at this time is too unstable for any endoscopic procedures Chronic conditions: Systolic CHF with EF 40-45%: Appears euvolemic. Hypertension: Metoprolol as above. Dyslipidemia: Lipitor as above. Non-Hodgkins lymphoma CAD with CABG: ASA, Lipitor, Plavix, Metoprolol as above. Carotid stenosis with endarterectomy: ASA, Lipitor, Plavix, as above. Data and imaging reviewed: Morning labs reviewed. CBC showing normocytic anemia with hemoglobin of 8.6. BMP showing hyponatremia with sodium of 131 and elevated renal function with BUN of 26, creatinine 1.27, GFR 53. Blood glucose 279. Magnesium was slightly low at 1.7 and orders were placed for replacement with magnesium sulfate 2 g IVPB.. Vital signs reviewed. Blood pressure 130/67, heart rate 102, respiratory rate 22, temp 98.2 F, and SpO2 of 92% % on Airvo with FiO2 of 50%. Sputum culture positive for aspergillus fumigatus, stenotrophomonas maltophilia, and Ariel albicans. Repeat cultures from bronchoscopy negative showing no growth. Repeat morning x-ray completed and personally reviewed. Upon personal interpretation of x-ray imaging patient continues to have moderate opacities to bilateral lower lobes (right greater than left) and appears to be unchanged when compared to previous x-ray completed 06/25/24. CODE STATUS: Full code DVT prophylaxis: SCDs Anticipated discharge date: Pending clinical course Anticipated discharge place: Pending clinical course Patient was seen independently by Nurse Pracitioner. This document was prepared using [employer] dictation software. Please allow for errors in director instrumentation, while rare they do occur. I reviewed the documentation as provided by the MICHELE above, who is the original author of this note. I agree with the documented assessment and plan, with the following changes: none Objective - Vital Signs Vital signs: Vital Signs Temp 98.5 F 06/28/24 04:00 Pulse 90 06/28/24 08:14 Resp 18 06/28/24 04:00 BP 124/58 06/28/24 04:00 Pulse Ox 94 L 06/28/24 08:02 FiO2 50 06/28/24 08:02 Intake & Output 06/27/24 06/28/24 06/28/24 18:59 06:59 18:59 Intake Total 300 Output Total 1600 1575 Balance -1600 -1275 Intake: Intake, IV Titration 300 Amount Sodium Chloride 0.9% 1, 300 000 ml @ 75 mls/hr IV . [id number] [facility] Rx#:[id number] Output: Urine 1600 1575 Other: Voiding Method Indwelling Catheter Indwelling Catheter - Labs CBC & Chem 7: 06/28/24 06:47 06/28/24 06:47 Labs: Abnormal Lab Results - Last 24 Hours (Table) 06/27/24 06/27/24 06/27/24 Range/Units 11:35 16:16 19:54 Creatinine (0.66-1.25) mg/dL POC Glucose (mg/dL) 129 H 298 H 236 H (70-110) mg/dL 06/28/24 06/28/24 Range/Units 06:17 06:47 Creatinine 1.27 H (0.66-1.25) mg/dL POC Glucose (mg/dL) 317 H (70-110) mg/dL Microbiology - Last 24 Hours (Table) 06/24/24 15:00 Gram Stain - Final Bronchial Washings - Random Bronchial Washings Culture - Final
[2024-06-28] MEDS: MAGNESIUM SULFATE-D5W PMX 1 GM in DEXTROSE/WATER 1 100ML.BAG IVPB SCH (14:12)
[2024-06-28 16:14] LABS: Glucose,Whole Blood 247 mg/dL (70-110)
[2024-06-28 20:00] LABS: Glucose,Whole Blood 178 mg/dL (70-110)
[2024-06-29 06:21] LABS: Glucose,Whole Blood 307 mg/dL (70-110)
[2024-06-29 07:22] LABS: Glucose,Whole Blood 229 mg/dL (70-110)
[2024-06-29 07:54] LABS: HCT 27.6 % (39.0-53.0); MCH 30.3 pg (25.0-35.0); MCHC 32.6 g/dL (31.0-37.0); MCV 93.1 fL (80.0-100.0); Mean Platelet Volume 9.1; Platelet Count 193 k/uL (150-450); RBC 2.97 m/uL (4.30-5.90); RDW 15.2 % (11.5-15.5); WBC 9.8 k/uL (3.8-10.6)
[2024-06-29 08:10] LABS: ALT 32 U/L (4-49); AST 40 U/L (17-59); African American GFR (CKD) 64 (>60 ml/min/1.73 sqM); Albumin 2.7 g/dL (3.5-5.0); Alkaline Phosphatase 70 U/L (38-126); Anion Gap 6 mmol/L; Blood Urea Nitrogen 24 mg/dL (9-20); Calcium 8.3 mg/dL (8.4-10.2); Carbon Dioxide 24 mmol/L (22-30); Chloride 100 mmol/L (98-107); Glucose 213 mg/dL (74-99); Non-African American GFR(CKD) 55 (>60 ml/min/1.73 sqM); Sodium 130 mmol/L (137-145); Total Bilirubin 0.3 mg/dL (0.2-1.3); Total Protein 4.7 g/dL (6.3-8.2)
[2024-06-29 11:44] LABS: Glucose,Whole Blood 136 mg/dL (70-110)
--- NOTE | 2024-06-29 14:07 | P.PN ---
Subjective Progress Note Date: 06/29/24 Hospital course: Patient is a very pleasant 79-year-old male with a past medical history of systolic CHF with EF 40 to 45%, COPD on 3L home O2, chronic kidney disease, hypertension, hyperlipidemia, non-Hodgkins lymphoma, CAD with CABG, AAA with stent, carotid stenosis with endarterectomy presents to the ED for shortness of breath. Apparently his O2 sat was in the 70s when EMS arrived on his 3L NC. Recently admitted from 06/05-06/07 for similar complaints, COVID + at that time, treated with bronchodilators, Zosyn, SoluMedrol and discharged on a Prednisone taper and to complete a course of Ciprofloxacin. He recently underwent bronchoscopy with BAL with Dr. Cano on 05/13 with cultures resulting in Pseudomonas and eden albicans. He was started on Ciprofloxacin at that time. He underwent repeat bronchoscopy with BAL with Dr. Cano on 06/03 which grew stenotrophomonas maltophilia. He was continued on Ciprofloxacin and according to the patient has been taking it over the past 5-6 weeks. In the ED he underwent extensive evaluation. Tmax 100F, BP 119/62, HR 102, RR 40, 91% on 3L. CBC, Coag panel, CMP significant for RBC 4, Hg 12.4, Hct 35.8, PT 9.9, bicarb 33, BUN 39, Cr 1.91, glu 131. Lactic acid 2.9. Troponin 0.054. EKG sinus tachycardia with RBBB. CXR showed COPD with patchy interstitial densities increased from previous CXRs. Patient is admitted for further workup and management. Patient seen by pulmonology and started on IV Zosyn and Bactrim. Patient also on IV steroids. Patient was on BiPAP. Patient weaned down to Airvo. Patient had another bronchoscopy done on 06/24/2024 that showed tracheobronchomalacia with copious thick secretions and mucous plugging. Sputum culture obtained at this time showing Aspergillus fumigatus, stenotrophomonas maltophilia, and Eden albicans. Patient currently on Bactrim 352 mg IVPB every 8 hours Physical exam: Patient was seen and fully evaluated at bedside this morning. Resting comfortably in bed, patient's son at bedside. Patient denies having any new complaints, reports breathing remains unchanged. Patient had episode of epistaxis this morning. Currently resolved. Vital signs reviewed and stable. General: Nontoxic, no distress and appears stated age. Derm: Skin warm and dry, normal coloration for ethnicity. Head: Atraumatic, normocephalic and symmetric. Eyes: EOM's intact, no lid lag, and anicteric sclera Mouth: no lip lesions, mucus membranes moist Cardiovascular: regular rate and rhythm with normal S1S2, no murmur, positive posterior tibial pulses bilaterally, and cap refill < 2 seconds. Lungs: Respirations even, regular, and unlabored on Airvo. Lungs diminished with diffuse expiratory wheezes. No rhonchi or rails noted this morning. Abdominal: soft, nontender to palpation, no guarding, no appreciable organom egaly Ext: ROM intact. No gross muscle atrophy, no edema, no contractures Neuro: Speech clear, face symmetrical and CN II-XII grossly intact with no noted focal neuro deficits Psych: Alert and oriented to person, place, time, and situation. Appropriate and pleasant affect. Assessment and Plan of Care: Acute on chronic hypoxic respiratory failure, likely from COVID sequelae with development of pseudomonas pneumonia Sepsis upon admission, secondary to above Acute on chronic COPD exacerbation, secondary to above -Patient in the last month had BAL cultures that were positive for Pseudomonas and stenotrophomonas maltophilia -Continue IV antibiotics with Bactrim 352 mg every 8 hours. Day #8 -Continue with supplemental oxygen maintain SpO2 equal to or greater than 90%. Patient currently on Airvo. Wean O2 as tolerated -Sputum culture positive for aspergillus fumigatus, stenotrophomonas maltophilia, and Eden albicans. Repeat cultures from bronchoscopy negative showing no growth. -Infectious disease following, reviewed documentation in chart. -Pulmonology following, took patient for bronchoscopy with BAL on 06/24/2024 which revealed tracheobronchomalacia with copious thick secretions and mucous plugging. -Follow-up on cultures from bronchoscopy -Continue with Symbicort 2 puffs INH BID. DuoNebs scheduled Q4H and as needed for wheezing/shortness of breath. Singulair 10 mg PO HS, and IV steroids with SoluMedrol 60 mg IV Q6H. -Repeat chest x-ray completed 06/28/2024 stable showing no changes including worsening or improvement.. Elevated troponin -Troponins flat and ACS ruled out -Continue with ASA 81 mg PO QD. Lipitor 40 mg PO QHS. Plavix 75 mg PO QD. Metoprolol 25 mg PO QD. 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 BRITT resolved and renal function back at baseline with BUN of 24, creatinine 1 .23, GFR 55. Lactic acidosis -Resolved Acute blood loss anemia -Patient's hemoglobin was trending down and subcu Lovenox for DVT prophylaxis was discontinued and orders placed for SCDs. -Today hemoglobin is 9.0 and stable -Patient at this time is too unstable for any endoscopic procedures Chronic conditions: Systolic CHF with EF 40-45%: Appears euvolemic. Hypertension: Metoprolol as above. Dyslipidemia: Lipitor as above. Non-Hodgkins lymphoma CAD with CABG: ASA, Lipitor, Plavix, Metoprolol as above. Carotid stenosis with endarterectomy: ASA, Lipitor, Plavix, as above. Data and imaging reviewed: Morning labs reviewed. CBC showing normocytic anemia with hemoglobin of 9.0. BMP showing hyponatremia with sodium of 130 and elevated but stable renal function with BUN of 24, creatinine 1.23, GFR 55. Blood glucose 213. Magnesium 2.0. Vital signs reviewed. Blood pressure 137/63, heart rate 110, respiratory rate 20, temp 97.5 F, and SpO2 of 91% on BiPAP with FiO2 65% Sputum culture positive for aspergillus fumigatus, stenotrophomonas maltophilia, and Eden albicans. Repeat cultures from bronchoscopy negative showing no growth. CODE STATUS: Full code DVT prophylaxis: SCDs Anticipated discharge date: Pending clinical course Anticipated discharge place: Pending clinical course Patient was seen independently by Nurse Pracitioner. This document was prepared using [employer] dictation software. Please allow for errors in potato chip fryer, while rare they do occur. I reviewed the documentation as provided by the MICHELE above, who is the original author of this note. I agree with the documented assessment and plan, with the following changes: none Objective - Vital Signs Vital signs: Vital Signs Temp 97.8 F 06/29/24 04:00 Pulse 87 06/29/24 04:36 Resp 20 06/29/24 05:00 BP 127/72 06/29/24 04:00 Pulse Ox 95 06/29/24 05:00 FiO2 65 06/29/24 05:00 Intake & Output 06/28/24 06/29/24 06/29/24 18:59 06:59 18:59 Intake Total 236 450 Output Total 2600 2275 Balance -2364 -1821 Intake: Intake, IV Titration 450 Amount Sodium Chloride 0.9% 1, 450 000 ml @ 75 mls/hr IV . [id number] [facility] Rx#:[id number] Oral 236 Output: Urine 2600 2275 Other: Voiding Method Indwelling Catheter Indwelling Catheter - Labs CBC & Chem 7: 06/29/24 07:40 06/29/24 07:40 Labs: Abnormal Lab Results - Last 24 Hours (Table) 06/25/24 06/28/24 06/28/24 Range/Units 11:59 06:47 06:47 RBC 2.81 L (4.30-5.90) m/uL Hgb 8.6 L (13.0-17.5) gm/dL Hct 26.3 L (39.0-53.0) % Sodium 131 L (137-145) mmol/L BUN 26 H (9-20) mg/dL Creatinine 1.27 H (0.66-1.25) mg/dL Glucose 279 H (74-99) mg/dL POC Glucose (mg/dL) 229 H (70-110) mg/dL Calcium 8.1 L (8.4-10.2) mg/dL Total Protein 4.4 L (6.3-8.2) g/dL Albumin 2.5 L (3.5-5.0) g/dL 06/28/24 06/28/24 06/28/24 Range/Units 11:48 13:13 16:11 RBC (4.30-5.90) m/uL Hgb (13.0-17.5) gm/dL Hct (39.0-53.0) % Sodium (137-145) mmol/L BUN (9-20) mg/dL Creatinine (0.66-1.25) mg/dL Glucose (74-99) mg/dL POC Glucose (mg/dL) 112 H 216 H 247 H (70-110) mg/dL Calcium (8.4-10.2) mg/dL Total Protein (6.3-8.2) g/dL Albumin (3.5-5.0) g/dL 06/28/24 06/29/24 06/29/24 Range/Units 19:59 06:20 07:40 RBC (4.30-5.90) m/uL Hgb (13.0-17.5) gm/dL Hct (39.0-53.0) % Sodium 130 L (137-145) mmol/L BUN 24 H (9-20) mg/dL Creatinine (0.66-1.25) mg/dL Glucose 213 H (74-99) mg/dL POC Glucose (mg/dL) 178 H 307 H (70-110) mg/dL Calcium 8.3 L (8.4-10.2) mg/dL Total Protein 4.7 L (6.3-8.2) g/dL Albumin 2.7 L (3.5-5.0) g/dL 06/29/24 Range/Units 07:40 RBC 2.97 L (4.30-5.90) m/uL Hgb 9.0 L (13.0-17.5) gm/dL Hct 27.6 L (39.0-53.0) % Sodium (137-145) mmol/L BUN (9-20) mg/dL Creatinine (0.66-1.25) mg/dL Glucose (74-99) mg/dL POC Glucose (mg/dL) (70-110) mg/dL Calcium (8.4-10.2) mg/dL Total Protein (6.3-8.2) g/dL Albumin (3.5-5.0) g/dL Microbiology - Last 24 Hours (Table) 06/27/24 14:27 Gram Stain - Preliminary Sputum Sputum Culture - Preliminary
--- NOTE | 2024-06-29 15:38 | P.PN ---
Subjective Progress Note Date: 06/29/24 Principal diagnosis: Acute hypoxic respiratory failure secondary to gram-negative pneumonia and stenotrophomonas infection On 06/22/2024, the patient is being seen for a follow-up. This morning, the patient is on a BiPAP pressure of 16 over 5 cm of water with FiO2 of 60% and the patient is on a lactated Ringer at rate of 50 cc an hour. Chest x-ray was done this morning and it showed patchy infiltrates in lung bases more so on the right consistent with pneumonia. Most recent bronchoscopy yielded stenotrophomonas and the patient has grown Pseudomonas in the past. The patient is currently on IV Zosyn. He remains on DuoNeb nebulized treatments [id number]. He is on Symbicort. He is on IV Solu-Medrol. He is awake and alert and communicating. The white cell count is at 7 with hemoglobin of 10 and platelet count of 189. BUN is 27 with a creatinine of 1.36 and a sodium levels at 138. He is weak and quite debilitated on a chronic basis. Bactrim will be also added to his regimen. On 06/23/2024, the patient is still on Airvo at 35 L with an FiO2 of 50% with a pulse ox of 96%. Feels somewhat improved compared to yesterday. Continues to have a congested cough with limited amount of sputum production. Antibiotic modification was done yesterday and the patient is currently on a combination of Zosyn and IV Bactrim. Renal function remained stable. On today's blood work, the creatinine is at 1.24 with a BUN of 23. Rest of the electrolytes are all s table and within normal limits. White cell count of 5.3 with a hemoglobin of 9. A repeat chest x-ray from today shows some bibasilar pulmonary filtrates slightly worse on the left along with background COPD. Remains on bronchodilators. Remains on steroids. Remains on lactated Ringer at 50 cc an hour. Remains on Symbicort and DuoNeb updrafts [id number]. Home medications have been also resumed. 06/24/2024, the patient remains on Airvo 35 L with an FiO2 of 55%. The patient continues to have respiratory difficulties, cough, congestion, unable to bring up much of sputum. No significant improvement in respiratory status over the past 24 hours. The patient remains on a combination of IV Bactrim and IV Zosyn. The white cell count is at 8.1. Hemoglobin is 8.6 and a platelet count of 142. BUN is 25 with a creatinine of 1.22. He is getting progressively more debilitated and weak. Spending most of the time in bed. Oral intake is diminished and the patient had minimal amount of old. Earlier this morning. I plan to do a bronchoscopy on this patient in the afternoon to further optimize her respiratory status. Suspect mucous plugs. 06/25/2024, the patient is post bronchoscopy. The patient remains on Airvo 35 L with an FiO2 of 55%. Continues to struggle with his breathing. Cough and congestion is improved compared to yesterday post bronchoscopy. Repeat bronchoalveolar lavage was done and results are still pending. Most recent sputum sample is showing Eden, Aspergillus and stenotrophomonas. The patient remains on Bactrim IV. Remains on IV Solu-Medrol. Remains on DuoNeb nebulized treatments [id number]. The white cell count of 7.4 with a hemoglobin 9.5 and a platelet count of 197. Sodium is at 136, BUN 25 with a creatinine of 1.1. ID is on the case. No other new complaints otherwise for now. 06/26/2024, patient is being seen for a follow-up. The patient is sitting up in a chair. Awaiting the results from the bronchoscopy and bronchial lavage. Most recent sputum analysis was positive for stenotrophomonas in addition to Aspergillus and candidal elements. Earlier this morning, the patient was on Airvo. He was at 35 L with an FiO2 of 55%. I took him off the Airvo and I put him on 60 days of oxygen by nasal cannula and his current pulse ox 94%. He remains bronchospastic and wheezy. Awaiting consistent 0.8 edema 9.5 and a plat elet count of 199. BUN is 25 with a creatinine of 1.09 and sodium levels at 135. Communicating. Awake. No chest pain. No other new complaints since yesterday. Awaiting results of the bronchial lavage and the patient remains on IV Bactrim. In terms of his renal function, the patient's creatinine is stable at 1.09. 06/27/2024, the patient continues to have labored breathing. After being on nasal cannula for yesterday, this patient became more short of breath this morning. Based on that, the patient was placed again on Airvo and the patient is currently on 50 L with FiO2 of 60%. Pulse ox in the order of 94 to 95%. He remains on IV Bactrim. Continues to encounter cough and congestion. Unable to bring up much of sputum. No chest pain. Looks quite lethargic and weak. His white cell count today is at 10.2 with a hemoglobin 9.9. BUN is 23 with a creatinine of 1.1. Rest of the medication remains unchanged. Remains on IV Solu-Medrol. Remains on DuoNeb nebulized treatments [id number]. Symbicort will be discontinued and the patient was placed on a combination of Perforomist and Pulmicort. Oral intake remains quite diminished. 06/28/2024, the patient continues to struggle with his breathing. He remains on Airvo and is alternating it with a BiPAP. I am going to switch to BiPAP at a pressure of 10 over 5 cm of water and FiO2 of 50%. Meanwhile, this morning, he remains on Airvo and is currently on 50 L with an FiO2 of 60%. Congested cough. Remains bronchospastic and wheezy. Remains weak and debilitated. Oral intake remains quite diminished. Repeat arthroscopy and lavage yielded no microbial growth and the most recent cultures came back negative. Meanwhile, based on the earlier cultures of stenotrophomonas, the patient remains on Bactrim. Creatini ne is stable at 1.2. Responded adequately to Lasix and the patient produced approximately 2.8 L of negative fluid balance over the past 24 hours. Potassium is at 4.8. WBC count is at 8.4 with hemoglobin 8.6. Chest x-ray findings are essentially unchanged and the patient has stable lower lobe pulmonary filtrates which are essentially unchanged. Seen today on 06/29/2024, patient is feeling better today, breathing easier. However he remains on Airvo with FiO2 of 60% and flow of 55 L/min. Patient is on antibiotics for his pneumonia and positive multi microbial cultures from his sputum and his BAL. This is being addressed accordingly, however the main organism seems to be Stenotrophomonas maltophilia WBC count is 9.8 hemoglobin is 9 basic metabolic profile is normal BUN is 24 creatinine 1.23. This x-ray from yesterday continues show bilateral extensive infiltrates specially at the bases of his right lung and left lung/lingula Objective - Vital Signs Vital signs: Vital Signs Temp 98 F 06/29/24 12:00 Pulse 88 06/29/24 12:00 Resp 18 06/29/24 12:00 BP 121/57 06/29/24 12:00 Pulse Ox 94 L 06/29/24 12:00 FiO2 60 06/29/24 12:00 Intake & Output 06/28/24 06/29/24 06/29/24 18:59 06:59 18:59 Intake Total 236 450 Output Total 2600 2275 Balance -2364 -1825 Intake: Intake, IV Titration 450 Amount Sodium Chloride 0.9% 1, 450 000 ml @ 75 mls/hr IV . [id number] [facility] Rx#:[id number] Oral 236 Output: Urine 2600 2275 Other: Voiding Method Indwelling Catheter Indwelling Catheter Indwelling Catheter - Exam General: Revealed 79-year-old white male on Airvo, seems to be better today co mpared to baseline. He tells me that his breathing a lot easier today compared to the last few days HEENT examination is grossly unremarkable. Mucous membranes are moist. No oral lesions. Neck supple. Full range of motion. No adenopathy thyromegaly or neck vein distention. Cardiovascular examination reveals regular rhythm rate. S1-S2 normal. No S3 or S4. No discernible murmur noted. Heart sounds are distant. Lungs reveal scattered bilateral rhonchi and expiratory wheezes. No crackles. Breath sounds equal but diminished throughout. Abdomen soft and without bowel sounds. No masses or tenderness. Extremities are intact. No cyanosis clubbing or edema. Skin is without rash or lesion. Neurologic alert oriented x 3 no gross focal deficit Theatric: Normal mood affect and normal mental status examination - Labs CBC & Chem 7: 06/29/24 07:40 06/29/24 07:40 Labs: Abnormal Lab Results - Last 24 Hours (Table) 06/25/24 06/28/24 06/28/24 Range/Units 11:59 16:11 19:59 RBC (4.30-5.90) m/uL Hgb (13.0-17.5) gm/dL Hct (39.0-53.0) % Sodium (137-145) mmol/L BUN (9-20) mg/dL Glucose (74-99) mg/dL POC Glucose (mg/dL) 229 H 247 H 178 H (70-110) mg/dL Calcium (8.4-10.2) mg/dL Total Protein (6.3-8.2) g/dL Albumin (3.5-5.0) g/dL 06/29/24 06/29/24 06/29/24 Range/Units 06:20 07:40 07:40 RBC 2.97 L (4.30-5.90) m/uL Hgb 9.0 L (13.0-17.5) gm/dL Hct 27.6 L (39.0-53.0) % Sodium 130 L (137-145) mmol/L BUN 24 H (9-20) mg/dL Glucose 213 H (74-99) mg/dL POC Glucose (mg/dL) 307 H (70-110) mg/dL Calcium 8.3 L (8.4-10.2) mg/dL Total Protein 4.7 L (6.3-8.2) g/dL Albumin 2.7 L (3.5-5.0) g/dL 06/29/24 Range/Units 11:43 RBC (4.30-5.90) m/uL Hgb (13.0-17.5) gm/dL Hct (39.0-53.0) % Sodium (137-145) mmol/L BUN (9-20) mg/dL Glucose (74-99) mg/dL POC Glucose (mg/dL) 136 H (70-110) mg/dL Calcium (8.4-10.2) mg/dL Total Protein (6.3-8.2) g/dL Albumin (3.5-5.0) g/dL Microbiology - Last 24 Hours (Table) 06/27/24 14:27 Gram Stain - Preliminary Sputum Sputum Culture - Preliminary Assessment and Plan Assessment: Impression: Acute hypoxic respiratory failure, secondary to pneumonia/multi microbial Recurrent respiratory tract infection/pneumonia and the patient continues to lower lobe consolidation previous culture showing gram-negative bacterial infection including stenotrophomonas. Suspect ongoing mucous plugging, leading to shortness of breath Recent hospitalization for a COPD exacerbation and a COVID-19 infection, Acute COPD exacerbation secondary to above Previous hospitalization for a pseudomonal tracheobronchitis/pneumonia Oxygen dependent chronic obstructive pulmonary disease with an FEV1 value 39% of predicted Chronic tobacco dependence of greater than 60 years Right upper lobe PET avid pulmonary nodule which is being monitored on outpatient basis, measuring up to 1.4 cm in size, enlarging in size and the patient will need an SBRT at a later stage on outpatient basis. History of non-Hodgkin's lymphoma Chronic stage III kidney disease Coronary disease with previous coronary artery bypass surgery in 2001 History of abdominal aortic aneurysm status post stent placement in March 2022 Carotid stenosis status post endarterectomy History of ESBL E. coli and bronchial wash in 2021 Hyperlipidemia Hypertension Recommendation: Continue oxygen via Airvo and titrate accordingly alternate with BiPAP as needed Continue aggressive pulmonary toileting Reviewed the results of his BAL and cultures patient is on Bactrim Continue to closely monitor renal profile Continue bronchodilators and IV Solu-Medrol Continue Pulmicort and Perforomist Chest x-ray was reviewed Continue diuretics Will continue to follow Prognosis is relatively guarded. Time with Patient: Less than 30
[2024-06-29 16:24] LABS: Glucose,Whole Blood 292 mg/dL (70-110)
[2024-06-29 20:08] LABS: Glucose,Whole Blood 221 mg/dL (70-110)
[2024-06-29] MEDS: IPRATROPIUM-ALBUTEROL 3 ML NEB INHALATION SCH (21:13)
[2024-06-30 06:13] LABS: Glucose,Whole Blood 185 mg/dL (70-110)
[2024-06-30 06:53] LABS: HCT 29.3 % (39.0-53.0); HGB 9.7 gm/dL (13.0-17.5); MCH 30.6 pg (25.0-35.0); MCHC 33.1 g/dL (31.0-37.0); MCV 92.3 fL (80.0-100.0); Mean Platelet Volume 8.9; Platelet Count 218 k/uL (150-450); RBC 3.18 m/uL (4.30-5.90); RDW 15.3 % (11.5-15.5); WBC 16.1 k/uL (3.8-10.6)
[2024-06-30 07:07] LABS: ALT 32 U/L (4-49); AST 44 U/L (17-59); African American GFR (CKD) 66 (>60 ml/min/1.73 sqM); Albumin 3.1 g/dL (3.5-5.0); Alkaline Phosphatase 90 U/L (38-126); Anion Gap 6 mmol/L; Blood Urea Nitrogen 25 mg/dL (9-20); Calcium 8.6 mg/dL (8.4-10.2); Carbon Dioxide 22 mmol/L (22-30); Chloride 101 mmol/L (98-107); Glucose 164 mg/dL (74-99); Magnesium 1.9 mg/dL (1.6-2.3); Non-African American GFR(CKD) 57 (>60 ml/min/1.73 sqM); Potassium 5.8 mmol/L (3.5-5.1); Sodium 129 mmol/L (137-145); Total Bilirubin 0.5 mg/dL (0.2-1.3); Total Protein 5.2 g/dL (6.3-8.2)
[2024-06-30] MEDS: SULFAMETHOX TMP IVPB SCH (09:00)
[2024-06-30] MEDS: WATER IVPB SCH (09:00)
[2024-06-30] MEDS: DEXTROSE 5% IVPB SCH (09:00)
--- NOTE | 2024-06-30 10:18 | XR ---
EXAMINATION TYPE: XR chest 1V portable DATE OF EXAM: 06/30/2024 Comparison: 06/28/2024 Clinical History: 79-year-old male repeat CXR, worsening leukocytosis Findings: Median sternotomy wires and post-CABG clips. Heart upper limits of normal in size. Patchy lower lung opacities are similar to slightly worsening in the interval. Mild interstitial density remains in the upper lungs. No pleural effusion. Impression: Patchy and confluent airspace disease throughout the mid and lower lungs similar to slightly worsened . [facility], , 06/30/2024 10:16 AM
[2024-06-30] MEDS: SODIUM ZIRCONIUM CYCLOSILICATE 10 GM PACKET PO ONE (10:21)
[2024-06-30] MEDS: FUROSEMIDE 10 MG/ML 4 ML VIAL IV STA (10:54)
[2024-06-30 11:21] LABS: Glucose,Whole Blood 213 mg/dL (70-110)
--- NOTE | 2024-06-30 12:40 | P.PN ---
Subjective Progress Note Date: 06/30/24 Hospital course: Patient is a very pleasant 79-year-old male with a past medical history of systolic CHF with EF 40 to 45%, COPD on 3L home O2, chronic kidney disease, hypertension, hyperlipidemia, non-Hodgkins lymphoma, CAD with CABG, AAA with stent, carotid stenosis with endarterectomy presents to the ED for shortness of breath. Apparently his O2 sat was in the 70s when EMS arrived on his 3L NC. Recently admitted from 06/05-06/07 for similar complaints, COVID + at that time, treated with bronchodilators, Zosyn, SoluMedrol and discharged on a Prednisone taper and to complete a course of Ciprofloxacin. He recently underwent bronchoscopy with BAL with Dr. Cano on 05/13 with cultures resulting in Pseudomonas and eden albicans. He was started on Ciprofloxacin at that time. He underwent repeat bronchoscopy with BAL with Dr. Cano on 06/03 which grew stenotrophomonas maltophilia. He was continued on Ciprofloxacin and according to the patient has been taking it over the past 5-6 weeks. In the ED he underwent extensive evaluation. Tmax 100F, BP 119/62, HR 102, RR 40, 91% on 3L. CBC, Coag panel, CMP significant for RBC 4, Hg 12.4, Hct 35.8, PT 9.9, bicarb 33, BUN 39, Cr 1.91, glu 131. Lactic acid 2.9. Troponin 0.054. EKG sinus tachycardia with RBBB. CXR showed COPD with patchy interstitial densities increased from previous CXRs. Patient is admitted for further workup and management. Patient seen by pulmonology and started on IV Zosyn and Bactrim. Patient also on IV steroids. Patient was on BiPAP. Patient weaned down to Airvo. Patient had another bronchoscopy done on 06/24/2024 that showed tracheobronchomalacia with copious thick secretions and mucous plugging. Sputum culture obtained at this time showing Aspergillus fumigatus, stenotrophomonas maltophilia, and Eden albicans. Patient currently on Bactrim 352 mg IVPB every 8 hours. Physical exam: Patient was seen and fully evaluated at bedside this morning. Patient reports feeling "awful" this morning. He states he feels awful because he still cannot breathe and his nose is dry and that he just feels extremely weak and tired. He remains on Airvo and rotating back and forth with BiPAP. He denies further episodes of epistaxis and is using flonase and nasal spray PRN. Patient's family at bedside reports that he has had increased oral intake over the past couple of days as they have been staying there all day and encouraging him to eat and helping with his meals. Vital signs reviewed and stable. General: Nontoxic, no distress and appears stated age. Derm: Skin warm and dry, normal coloration for ethnicity. Head: Atraumatic, normocephalic and symmetric. Eyes: EOM's intact, no lid lag, and anicteric sclera Mouth: no lip lesions, mucus membranes moist Cardiovascular: regular rate and rhythm with normal S1S2, no murmur, positive posterior tibial pulses bilaterally, and cap refill < 2 seconds. Lungs: Respirations even, regular, and unlabored on Airvo. Lungs diminished with diffuse expiratory wheezes. No rhonchi or rails noted this morning. Abdominal: soft, nontender to palpation, no guarding, no appreciable organomegaly Ext: ROM intact. No gross muscle atrophy, no edema, no contractures Neuro: Speech clear, face symmetrical and CN II-XII grossly intact with no noted focal neuro deficits Psych: Alert and oriented to person, place, time, and situation. Appropriate and pleasant affect. Assessment and Plan of Care: Acute on chronic hypoxic respiratory failure, likely from COVID sequelae complicated by development of pseudomonas and stenotropomonas maltophilia pneumonia Sepsis upon admission, secondary to above Acute on chronic COPD exacerbation, secondary to above Generalized weakness and fatigue secondary to physical decomposition resulting from prolonged hospitalization -Patient in the last month had BAL cultures that were positive for Pseudomonas and stenotrophomonas maltophilia -Continue IV antibiotics with Bactrim 352 mg every 8 hours. Day #9 -Continue with supplemental oxygen maintain SpO2 equal to or greater than 90%. Patient currently remains on Airvo. Wean O2 as tolerated -Sputum culture positive for aspergillus fumigatus, stenotrophomonas maltophilia, and Eden albicans. Repeat cultures from bronchoscopy 06/27/2024 negative showing no growth. -Infectious disease following, discussed patient's condition and plan in detail with Dr. Jaimes. -Pulmonology following, took patient for bronchoscopy with BAL on 06/24/2024 which revealed tracheobronchomalacia with copious thick secretions and mucous plugging. Discussed thoroughly with sales account manager and pulmonary [employer] this morning. -Continue with Symbicort 2 puffs INH BID. DuoNebs scheduled Q4H and as needed for wheezing/shortness of breath. Singulair 10 mg PO HS, and IV steroids with SoluMedrol 60 mg IV Q8H. -Repeat chest x-ray completed this morning remains unchanged, possibly slightly worsened when compared to previous x-ray completed 06/28/2024. -PT/OT following Hyponatremia -Patient sodium worsening after being placed on gentle IV fluid hydration with 0.9% normal saline over the past 3 days, will discontinue fluids and administer a one-time dose of Lasix 40 mg IVP and continue to monitor sodium levels closely with repeat a.m. labs. Hyerkalemia -Patient is on day 9 of IV Bactrim, hyperkalemia likely secondary to Bactrim. Discussed findings with infectious disease and he stated he will reevaluate further. Patient to remain on IV Bactrim at this time for treatment of Stenotrophomonas maltophilia and Pseudomonas pneumonia. Potassium 5.8 and renal function stable with BUN of 25, creatinine of 1.19, and GFR of 57. -Order placed for Lokelma 10 mg p.o. x 1 dose and patient also receiving 1 dose of IV Lasix for hypervolemic hyponatremia which will also help in reducing potassium levels. -Order for repeat morning potassium level and we will continue to monitor electrolyte values closely with additional orders to be placed if/as indicated based upon these findings.. -Patient to remain on telemetry monitoring. Elevated troponin -Troponins flat and ACS ruled out -Continue with ASA 81 mg PO QD. Lipitor 40 mg PO QHS. Plavix 75 mg PO QD. Metoprolol 25 mg PO QD. 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 BRITT resolved and renal function back at baseline with BUN of 25, creatinine 1.19, and GFR of 57. Lactic acidosis -Resolved Acute blood loss anemia -Patient's hemoglobin was trending down and subcu Lovenox for DVT prophylaxis was discontinued and orders placed for SCDs. -Today hemoglobin is 9.7 and stable -Patient at this time is too unstable for any endoscopic procedures Chronic conditions: Systolic CHF with EF 40-45%: Appears euvolemic. Hypertension: Metoprolol as above. Dyslipidemia: Lipitor as above. Non-Hodgkins lymphoma CAD with CABG: ASA, Lipitor, Plavix, Metoprolol as above. Carotid stenosis with endarterectomy: ASA, Lipitor, Plavix, as above. Data and imaging reviewed: Morning labs reviewed. CBC showing normocytic anemia with hemoglobin of 9.7. BMP showing hyponatremia with sodium of 129, hyperkalemia with potassium of 5.8 and not a hemolyzed specimen and stable renal function with BUN of 25, creatinine of 1.19, GFR 57. Documented urinary output over the past 24 hours is 1300 cc. Vital signs reviewed. Blood pressure 127/65, heart rate 80, respiratory rate 18, and SpO2 of 91% on Airvo with FiO2 of 75% Sputum culture positive for aspergillus fumigatus, stenotrophomonas maltophilia, and Eden albicans. Repeat cultures from bronchoscopy negative showing no growth. Repeat chest x-ray completed this morning was personally reviewed and remains mostly unchanged, showing no improvement and possibly slightly worsened when it was personally compared to previous x-ray completed 06/28/2024. Prognosis remains guarded. CODE STATUS: Full code DVT prophylaxis: SCDs Anticipated discharge date: Pending clinical course Anticipated discharge place: Pending clinical course Patient was seen independently by Nurse Pracitioner. This document was prepared using [employer] dictation software. Please allow for errors in contracts manager, while rare they do occur. I reviewed the documentation as provided by the MICHELE above, who is the original author of this note. I agree with the documented assessment and plan, with the following changes: none Objective - Vital Signs Vital signs: Vital Signs Temp 97.9 F 06/30/24 00:00 Pulse 84 06/30/24 05:01 Resp 18 06/30/24 04:00 BP 127/65 06/30/24 04:00 Pulse Ox 93 L 06/30/24 04:00 FiO2 65 06/30/24 04:39 Intake & Output 06/29/24 06/30/24 06/30/24 18:59 06:59 18:59 Intake Total 180 Output Total 300 1000 1000 Balance -120 -1000 -1000 Intake: Oral 180 Output: Urine 300 1000 1000 Other: Voiding Method Indwelling Catheter Indwelling Catheter - Labs CBC & Chem 7: 06/30/24 06:17 06/30/24 06:17 Labs: Abnormal Lab Results - Last 24 Hours (Table) 06/29/24 06/29/24 06/29/24 Range/Units 11:43 16:22 20:07 WBC (3.8-10.6) k/uL RBC (4.30-5.90) m/uL Hgb (13.0-17.5) gm/dL Hct (39.0-53.0) % Sodium (137-145) mmol/L Potassium (3.5-5.1) mmol/L BUN (9-20) mg/dL Glucose (74-99) mg/dL POC Glucose (mg/dL) 136 H 292 H 221 H (70-110) mg/dL Total Protein (6.3-8.2) g/dL Albumin (3.5-5.0) g/dL 06/30/24 06/30/24 06/30/24 Range/Units 06:07 06:17 06:17 WBC 16.1 H (3.8-10.6) k/uL RBC 3.18 L (4.30-5.90) m/uL Hgb 9.7 L (13.0-17.5) gm/dL Hct 29.3 L (39.0-53.0) % Sodium 129 L (137-145) mmol/L Potassium 5.8 H (3.5-5.1) mmol/L BUN 25 H (9-20) mg/dL Glucose 164 H (74-99) mg/dL POC Glucose (mg/dL) 185 H (70-110) mg/dL Total Protein 5.2 L (6.3-8.2) g/dL Albumin 3.1 L (3.5-5.0) g/dL Microbiology - Last 24 Hours (Table) 06/27/24 14:27 Gram Stain - Preliminary Sputum Sputum Culture - Preliminary
--- NOTE | 2024-06-30 13:55 | US ---
EXAMINATION TYPE: US venous doppler duplex UE BI DATE OF EXAM: 06/30/2024 COMPARISON: NONE CLINICAL INDICATION: Male, 79 years old with history of Edema; TECHNIQUE: Grayscale, color Doppler and spectral Doppler imaging of the upper extremity. SIDE PERFORMED: Bilateral FINDINGS: Lockstitch Zipper Setter notes: Exam done portable Grayscale, color doppler, spectral doppler imaging performed of the deep veins of the upper extremiti es. Right Arm: Appears negative for DVT Left Arm: Appears negative for DVT Thrombus seen within the cephalic vein IMPRESSION: 1. Exam positive for SVT involving the left cephalic vein. 2. However, otherwise, no evidence for DVT within the bilateral upper extremities. [facility], , 06/30/2024 1:53 PM
--- NOTE | 2024-06-30 14:02 | P.PN ---
Subjective Progress Note Date: 06/29/24 Principal diagnosis: Reason for follow-up is pneumonia Patient is a 79-year-old male with a past medical history significant for non-Hodgkin lymphoma COPD hypertension hyperlipidemia heart failure recently diagnosed with a COVID-19 presented to hospital for evaluation of increasing shortness of breath and cough sputum production did have patient evaluated on the chest x-ray concerning for pneumonia. On today's evaluation that is 06/29/2024, Patient is afebrile patient is currently on high flow nasal cannula oxygen still complaining of shortness of breath on minimal exertion but denies any chest pain or worsening cough no vomiting diarrhea any change reported by the nursing staff. Patient white count is normal at 9.8, creatinine is 1.23 potassium is 5.0 Asperg illus antibodies came back negative Objective - Vital Signs Vital signs: Vital Signs Temp 97.5 F L 06/29/24 09:35 Pulse 110 H 06/29/24 09:35 Resp 20 06/29/24 09:35 BP 137/63 06/29/24 09:35 Pulse Ox 91 L 06/29/24 09:35 FiO2 65 06/29/24 09:35 Intake & Output 06/28/24 06/29/24 06/29/24 18:59 06:59 18:59 Intake Total 236 450 Output Total 2600 2275 Balance -2364 -1825 Intake: Intake, IV Titration 450 Amount Sodium Chloride 0.9% 1, 450 000 ml @ 75 mls/hr IV . [id number] [facility] Rx#:[id number] Oral 236 Output: Urine 2600 2275 Other: Voiding Method Indwelling Catheter Indwelling Catheter Indwelling Catheter - Exam GENERAL DESCRIPTION: An elderly male up in bed in no distress RESPIRATORY SYSTEM: Unlabored breathing , coarse breath sounds bilaterally HEART: S1 S2 regular rate and rhythm , ABDOMEN: Soft , no tenderness EXTREMITIES: No edema feet - Labs CBC & Chem 7: 06/30/24 06:17 06/30/24 06:17 Labs: Abnormal Lab Results - Last 24 Hours (Table) 06/25/24 06/28/24 06/28/24 Range/Units 11:59 11:48 13:13 RBC (4.30-5.90) m/uL Hgb (13.0-17.5) gm/dL Hct (39.0-53.0) % Sodium (137-145) mmol/L BUN (9-20) mg/dL Glucose (74-99) mg/dL POC Glucose (mg/dL) 229 H 112 H 216 H (70-110) mg/dL Calcium (8.4-10.2) mg/dL Total Protein (6.3-8.2) g/dL Albumin (3.5-5.0) g/dL 06/28/24 06/28/24 06/29/24 Range/Units 16:11 19:59 06:20 RBC (4.30-5.90) m/uL Hgb (13.0-17.5) gm/dL Hct (39.0-53.0) % Sodium (137-145) mmol/L BUN (9-20) mg/dL Glucose (74-99) mg/dL POC Glucose (mg/dL) 247 H 178 H 307 H (70-110) mg/dL Calcium (8.4-10.2) mg/dL Total Protein (6.3-8.2) g/dL Albumin (3.5-5.0) g/dL 06/29/24 06/29/24 Range/Units 07:40 07:40 RBC 2.97 L (4.30-5.90) m/uL Hgb 9.0 L (13.0-17.5) gm/dL Hct 27.6 L (39.0-53.0) % Sodium 130 L (137-145) mmol/L BUN 24 H (9-20) mg/dL Glucose 213 H (74-99) mg/dL POC Glucose (mg/dL) (70-110) mg/dL Calcium 8.3 L (8.4-10.2) mg/dL Total Protein 4.7 L (6.3-8.2) g/dL Albumin 2.7 L (3.5-5.0) g/dL Microbiology - Last 24 Hours (Table) 06/27/24 14:27 Gram Stain - Preliminary Sputum Sputum Culture - Preliminary Assessment and Plan (1) Pneumonia Current Visit: Yes Status: Acute Code(s): J18.9 - PNEUMONIA, UNSPECIFIED ORGANISM SNOMED Code(s): 918273020 (2) Sepsis Current Visit: No Status: Acute Code(s): A41.9 - SEPSIS, UNSPECIFIED ORGANISM SNOMED Code(s): 62511028 Plan: 1patient presented to hospital with sepsis in this patient who did have fever tachycardia mild hypotension source is likely pneumonia in this patient who recently did have a COVID-19 will need to cover for resistant gram negative to be the likely etiology and the patient recently grew Pseudomonas in his BAL culture 2-blood cultures are so far negative initial sputum has been negative, urine for Legionella antigen was negative mycoplasma IgM not elevated, repeat sputum is growing stenotrophomonas as well as Aspergillus and Eden 3 Aspergillus CF antibodies came back negative, and Aspergillus galactomannan is currently pending 4patient to continue with the IV Bactrim to cover for stenotrophomonas pneumonia Family at the bedside multiple questions answered Dictation was produced using [employer] dictation software. please excuse any grammatical, word or spelling errors. Time with Patient: Less than 30
--- NOTE | 2024-06-30 14:08 | P.PN ---
Subjective Progress Note Date: 06/30/24 Principal diagnosis: Reason for follow-up is pneumonia Patient is a 79-year-old male with a past medical history significant for non-Hodgkin lymphoma COPD hypertension hyperlipidemia heart failure recently diagnosed with a COVID-19 presented to hospital for evaluation of increasing shortness of breath and cough sputum production did have patient evaluated on the chest x-ray concerning for pneumonia. On today's evaluation that is 06/30/2024, patient has been afebrile, patient is complaining of shortness of breath and has been put back on the BiPAP FiO2 is currently 65% denies any chest pain no worsening cough or sputum production no vomiting or diarrhea has been reported. Patient did have a white count up to 16.1, creatinine is 1.1 9 repeat sputum currently pending did have a chest x-ray patchy and confluent airspace disease throughout the mid and lower lungs slightly worse Objective - Vital Signs Vital signs: Vital Signs Temp 97.9 F 06/30/24 00:00 Pulse 85 06/30/24 09:33 Resp 18 06/30/24 04:00 BP 127/65 06/30/24 04:00 Pulse Ox 91 L 06/30/24 11:27 FiO2 75 06/30/24 11:27 Intake & Output 06/29/24 06/30/24 06/30/24 18:59 06:59 18:59 Intake Total 180 Output Total 300 1000 1000 Balance -120 -1000 -1000 Intake: Oral 180 Output: Urine 300 1000 1000 Other: Voiding Method Indwelling Catheter Indwelling Catheter - Exam GENERAL DESCRIPTION: An elderly male up in bed in no distress RESPIRATORY SYSTEM: Unlabored breathing , coarse breath sounds bilaterally HEART: S1 S2 regular rate and rhythm , ABDOMEN: Soft , no tenderness EXTREMITIES: No edema feet - Labs CBC & Chem 7: 06/30/24 06:17 06/30/24 06:17 Labs: Abnormal Lab Results - Last 24 Hours (Table) 06/29/24 06/29/24 06/29/24 Range/Units 11:43 16:22 20:07 WBC (3.8-10.6) k/uL RBC (4.30-5.90) m/uL Hgb (13.0-17.5) gm/dL Hct (39.0-53.0) % Sodium (137-145) mmol/L Potassium (3.5-5.1) mmol/L BUN (9-20) mg/dL Glucose (74-99) mg/dL POC Glucose (mg/dL) 136 H 292 H 221 H (70-110) mg/dL Total Protein (6.3-8.2) g/dL Albumin (3.5-5.0) g/dL 06/30/24 06/30/24 06/30/24 Range/Units 06:07 06:17 06:17 WBC 16.1 H (3.8-10.6) k/uL RBC 3.18 L (4.30-5.90) m/uL Hgb 9.7 L (13.0-17.5) gm/dL Hct 29.3 L (39.0-53.0) % Sodium 129 L (137-145) mmol/L Potassium 5.8 H (3.5-5.1) mmol/L BUN 25 H (9-20) mg/dL Glucose 164 H (74-99) mg/dL POC Glucose (mg/dL) 185 H (70-110) mg/dL Total Protein 5.2 L (6.3-8.2) g/dL Albumin 3.1 L (3.5-5.0) g/dL 06/30/24 Range/Units 11:20 WBC (3.8-10.6) k/uL RBC (4.30-5.90) m/uL Hgb (13.0-17.5) gm/dL Hct (39.0-53.0) % Sodium (137-145) mmol/L Potassium (3.5-5.1) mmol/L BUN (9-20) mg/dL Glucose (74-99) mg/dL POC Glucose (mg/dL) 213 H (70-110) mg/dL Total Protein (6.3-8.2) g/dL Albumin (3.5-5.0) g/dL Microbiology - Last 24 Hours (Table) 06/27/24 14:27 Gram Stain - Preliminary Sputum Sputum Culture - Preliminary Assessment and Plan (1) Pneumonia Current Visit: Yes Status: Acute Code(s): J18.9 - PNEUMONIA, UNSPECIFIED ORGANISM SNOMED Code(s): 726187659 (2) Sepsis Current Visit: No Status: Acute Code(s): A41.9 - SEPSIS, UNSPECIFIED ORGANIS M SNOMED Code(s): 30974189 Plan: 1patient presented to hospital with sepsis in this patient who did have fever tachycardia mild hypotension source is likely pneumonia in this patient who recently did have a COVID-19 will need to cover for resistant gram negative to be the likely etiology and the patient recently grew Pseudomonas in his BAL culture 2-blood cultures are so far negative initial sputum has been negative, urine for Legionella antigen was negative mycoplasma IgM not elevated, repeat sputum is growing stenotrophomonas as well as Aspergillus and Eden 3 Aspergillus CF antibodies came back negative, and Aspergillus galactomannan is currently pending 4patient did have problem with the Bactrim as his potassium level has been high we will go ahead and discontinue Bactrim and start the patient on IV Levaquin and monitor clinical course closely Dictation was produced using [employer] dictation software. please excuse any gra mmatical, word or spelling errors. Time with Patient: Less than 30
--- NOTE | 2024-06-30 14:57 | P.PN ---
Subjective Progress Note Date: 06/30/24 Principal diagnosis: Acute hypoxic respiratory failure secondary to gram-negative pneumonia and stenotrophomonas infection On 06/22/2024, the patient is being seen for a follow-up. This morning, the patient is on a BiPAP pressure of 16 over 5 cm of water with FiO2 of 60% and the patient is on a lactated Ringer at rate of 50 cc an hour. Chest x-ray was done this morning and it showed patchy infiltrates in lung bases more so on the right consistent with pneumonia. Most recent bronchoscopy yielded stenotrophomonas and the patient has grown Pseudomonas in the past. The patient is currently on IV Zosyn. He remains on DuoNeb nebulized treatments [id number]. He is on Symbicort. He is on IV Solu-Medrol. He is awake and alert and communicating. The white cell count is at 7 with hemoglobin of 10 and platelet count of 189. BUN is 27 with a creatinine of 1.36 and a sodium levels at 138. He is weak and quite debilitated on a chronic basis. Bactrim will be also added to his regimen. On 06/23/2024, the patient is still on Airvo at 35 L with an FiO2 of 50% with a pulse ox of 96%. Feels somewhat improved compared to yesterday. Continues to have a congested cough with limited amount of sputum production. Antibiotic modification was done yesterday and the patient is currently on a combination of Zosyn and IV Bactrim. Renal function remained stable. On today's blood work, the creatinine is at 1.24 with a BUN of 23. Rest of the electrolytes are all s table and within normal limits. White cell count of 5.3 with a hemoglobin of 9. A repeat chest x-ray from today shows some bibasilar pulmonary filtrates slightly worse on the left along with background COPD. Remains on bronchodilators. Remains on steroids. Remains on lactated Ringer at 50 cc an hour. Remains on Symbicort and DuoNeb updrafts [id number]. Home medications have been also resumed. 06/24/2024, the patient remains on Airvo 35 L with an FiO2 of 55%. The patient continues to have respiratory difficulties, cough, congestion, unable to bring up much of sputum. No significant improvement in respiratory status over the past 24 hours. The patient remains on a combination of IV Bactrim and IV Zosyn. The white cell count is at 8.1. Hemoglobin is 8.6 and a platelet count of 142. BUN is 25 with a creatinine of 1.22. He is getting progressively more debilitated and weak. Spending most of the time in bed. Oral intake is diminished and the patient had minimal amount of old. Earlier this morning. I plan to do a bronchoscopy on this patient in the afternoon to further optimize her respiratory status. Suspect mucous plugs. 06/25/2024, the patient is post bronchoscopy. The patient remains on Airvo 35 L with an FiO2 of 55%. Continues to struggle with his breathing. Cough and congestion is improved compared to yesterday post bronchoscopy. Repeat bronchoalveolar lavage was done and results are still pending. Most recent sputum sample is showing Eden, Aspergillus and stenotrophomonas. The patient remains on Bactrim IV. Remains on IV Solu-Medrol. Remains on DuoNeb nebulized treatments [id number]. The white cell count of 7.4 with a hemoglobin 9.5 and a platelet count of 197. Sodium is at 136, BUN 25 with a creatinine of 1.1. ID is on the case. No other new complaints otherwise for now. 06/26/2024, patient is being seen for a follow-up. The patient is sitting up in a chair. Awaiting the results from the bronchoscopy and bronchial lavage. Most recent sputum analysis was positive for stenotrophomonas in addition to Aspergillus and candidal elements. Earlier this morning, the patient was on Airvo. He was at 35 L with an FiO2 of 55%. I took him off the Airvo and I put him on 60 days of oxygen by nasal cannula and his current pulse ox 94%. He remains bronchospastic and wheezy. Awaiting consistent 0.8 edema 9.5 and a plat elet count of 199. BUN is 25 with a creatinine of 1.09 and sodium levels at 135. Communicating. Awake. No chest pain. No other new complaints since yesterday. Awaiting results of the bronchial lavage and the patient remains on IV Bactrim. In terms of his renal function, the patient's creatinine is stable at 1.09. 06/27/2024, the patient continues to have labored breathing. After being on nasal cannula for yesterday, this patient became more short of breath this morning. Based on that, the patient was placed again on Airvo and the patient is currently on 50 L with FiO2 of 60%. Pulse ox in the order of 94 to 95%. He remains on IV Bactrim. Continues to encounter cough and congestion. Unable to bring up much of sputum. No chest pain. Looks quite lethargic and weak. His white cell count today is at 10.2 with a hemoglobin 9.9. BUN is 23 with a creatinine of 1.1. Rest of the medication remains unchanged. Remains on IV Solu-Medrol. Remains on DuoNeb nebulized treatments [id number]. Symbicort will be discontinued and the patient was placed on a combination of Perforomist and Pulmicort. Oral intake remains quite diminished. 06/28/2024, the patient continues to struggle with his breathing. He remains on Airvo and is alternating it with a BiPAP. I am going to switch to BiPAP at a pressure of 10 over 5 cm of water and FiO2 of 50%. Meanwhile, this morning, he remains on Airvo and is currently on 50 L with an FiO2 of 60%. Congested cough. Remains bronchospastic and wheezy. Remains weak and debilitated. Oral intake remains quite diminished. Repeat arthroscopy and lavage yielded no microbial growth and the most recent cultures came back negative. Meanwhile, based on the earlier cultures of stenotrophomonas, the patient remains on Bactrim. Creatini ne is stable at 1.2. Responded adequately to Lasix and the patient produced approximately 2.8 L of negative fluid balance over the past 24 hours. Potassium is at 4.8. WBC count is at 8.4 with hemoglobin 8.6. Chest x-ray findings are essentially unchanged and the patient has stable lower lobe pulmonary filtrates which are essentially unchanged. Seen today on 06/29/2024, patient is feeling better today, breathing easier. However he remains on Airvo with FiO2 of 60% and flow of 55 L/min. Patient is on antibiotics for his pneumonia and positive multi microbial cultures from his sputum and his BAL. This is being addressed accordingly, however the main organism seems to be Stenotrophomonas maltophilia WBC count is 9.8 hemoglobin is 9 basic metabolic profile is normal BUN is 24 creatinine 1.23. This x-ray from yesterday continues show bilateral extensive infiltrates specially at the bases of his right lung and left lung/lingula Patient was evaluated today on 06/30/2024, patient is basically about the same, continues to have cough, shortness of breath, significant amount of secretions, on 8 L high flow nasal cannula, patient is developing worsening electrolytes imbalance, renal functioning is not changing much creatinine 1.19, however his potassium is 5.8 sodium is 129 WBC 16.1. Chest x-ray continues to show significant airspace disease involving the left lower lobe and lingula as well as the right lower lobe, infectious disease is concerned about Bactrim with hyperkalemia, and recommending IV Levaquin instead. Objective - Vital Signs Vital signs: Vital Signs Temp 98.3 F 06/30/24 12:50 Pulse 92 06/30/24 12:50 Resp 24 06/30/24 12:50 BP 136/75 06/30/24 12:50 Pulse Ox 95 06/30/24 12:50 FiO2 65 06/30/24 12:50 Intake & Output 06/29/24 06/30/24 06/30/24 18:59 06:59 18:59 Intake Total 180 Output Total 300 1000 2400 Balance -120 -1000 -2400 Intake: Oral 180 Output: Urine 300 1000 2400 Other: Voiding Method Indwelling Catheter Indwelling Catheter Indwelling Catheter - Exam General: Revealed 79-year-old white male on high flow nasal cannula 8 L/min HEENT examination is grossly unremarkable. Mucous membranes are moist. No oral lesions. Neck supple. Full range of motion. No adenopathy thyromegaly or neck vein distention. Cardiovascular examination reveals regular rhythm rate. S1-S2 normal. No S3 or S4. No discernible murmur noted. Heart sounds are distant. Lungs reveal scattered bilateral rhonchi and expiratory wheezes. No crackles. Breath sounds equal but diminished throughout. Abdomen soft and without bowel sounds. No masses or tenderness. Extremities are intact. No cyanosis clubbing or edema. Skin is without rash or lesion. Neurologic alert oriented x 3 no gross focal deficit Theatric: Normal mood affect and normal mental status examination - Labs CBC & Chem 7: 06/30/24 06:17 06/30/24 06:17 Labs: Abnormal Lab Results - Last 24 Hours (Table) 06/29/24 06/29/24 06/30/24 Range/Units 16:22 20:07 06:07 WBC (3.8-10.6) k/uL RBC (4.30-5.90) m/uL Hgb (13.0-17.5) gm/dL Hct (39.0-53.0) % Sodium (137-145) mmol/L Potassium (3.5-5.1) mmol/L BUN (9-20) mg/dL Glucose (74-99) mg/dL POC Glucose (mg/dL) 292 H 221 H 185 H (70-110) mg/dL Total Protein (6.3-8.2) g/dL Albumin (3.5-5.0) g/dL 06/30/24 06/30/24 06/30/24 Range/Units 06:17 06:17 11:20 WBC 16.1 H (3.8-10.6) k/uL RBC 3.18 L (4.30-5.90) m/uL Hgb 9.7 L (13.0-17.5) gm/dL Hct 29.3 L (39.0-53.0) % Sodium 129 L (137-145) mmol/L Potassium 5.8 H (3.5-5.1) mmol/L BUN 25 H (9-20) mg/dL Glucose 164 H (74-99) mg/dL POC Glucose (mg/dL) 213 H (70-110) mg/dL Total Protein 5.2 L (6.3-8.2) g/dL Albumin 3.1 L (3.5-5.0) g/dL Microbiology - Last 24 Hours (Table) 06/27/24 14:27 Gram Stain - Preliminary Sputum Sputum Culture - Preliminary Assessment and Plan Assessment: Impression: Acute hypoxic respiratory failure, secondary to pneumonia/multi microbial Recurrent respiratory tract infection/pneumonia and the patient continues to lower lobe consolidation previous culture showing gram-negative bacterial infection including stenotrophomonas. Suspect ongoing mucous plugging, leading to shortness of breath Recent hospitalization for a COPD exacerbation and a COVID-19 infection, Acute COPD exacerbation secondary to above Previous hospitalization for a pseudomonal tracheobronchitis/pneumonia Oxygen dependent chronic obstructive pulmonary disease with an FEV1 value 39% of predicted Chronic tobacco dependence of greater than 60 years Right upper lobe PET avid pulmonary nodule which is being monitored on outpatient basis, measuring up to 1.4 cm in size, enlarging in size and the patient will need an SBRT at a later stage on outpatient basis. History of non-Hodgkin's lymphoma Chronic stage III kidney disease Coronary disease with previous coronary artery bypass surgery in 2001 History of abdominal aortic aneurysm status post stent placement in March 2022 Carotid stenosis status post endarterectomy History of ESBL E. coli and bronchial wash in 2021 Hyperlipidemia Hypertension Recommendation: Agree with stopping Bactrim because of his renal issues and hyperkalemia Agree with the Levaquin although the ideal would be Bactrim for stenotrophomonas Continue oxygen titration and intermittent BiPAP if necessary. Continue aggressive pulmonary toileting Continue to closely monitor renal profile, and electrolytes Continue bronchodilators and IV Solu-Medrol Continue Pulmicort and Perforomist Chest x-ray was reviewed, updated his son on the findings on the chest x-ray and continues to have significant pneumonia Continue diuretics Will continue to follow Prognosis is relatively guarded. Time with Patient: Less than 30
[2024-06-30] MEDS: LEVOFLOXACIN 750MG-D5W PMX 750 MG in DEXTROSE/WATER 1 150ML.BAG IVPB SCH (16:19)
[2024-06-30 16:33] LABS: Glucose,Whole Blood 156 mg/dL (70-110)
[2024-06-30 20:08] LABS: Glucose,Whole Blood 143 mg/dL (70-110)
[2024-07-01 07:04] LABS: Glucose,Whole Blood 142 mg/dL (70-110)
[2024-07-01 08:22] LABS: ALT 36 U/L (4-49); AST 45 U/L (17-59); African American GFR (CKD) 63 (>60 ml/min/1.73 sqM); Albumin 2.8 g/dL (3.5-5.0); Alkaline Phosphatase 77 U/L (38-126); Anion Gap 5 mmol/L; Blood Urea Nitrogen 28 mg/dL (9-20); Calcium 8.5 mg/dL (8.4-10.2); Carbon Dioxide 26 mmol/L (22-30); Chloride 100 mmol/L (98-107); Glucose 122 mg/dL (74-99); Magnesium 1.7 mg/dL (1.6-2.3); Non-African American GFR(CKD) 54 (>60 ml/min/1.73 sqM); Potassium 5.1 mmol/L (3.5-5.1); Sodium 131 mmol/L (137-145); Total Bilirubin 0.5 mg/dL (0.2-1.3); Total Protein 4.8 g/dL (6.3-8.2)
[2024-07-01 09:40] LABS: HGB 9.8 gm/dL (13.0-17.5); MCH 31.1 pg (25.0-35.0); MCV 88.9 fL (80.0-100.0); Platelet Count 199 k/uL (150-450); RBC 3.15 m/uL (4.30-5.90); RDW 15.6 % (11.5-15.5); WBC 15.8 k/uL (3.8-10.6)
[2024-07-01] MEDS: FUROSEMIDE 10 MG/ML 4 ML VIAL IV STA (09:51)
[2024-07-01] MEDS: MAGNESIUM SULFATE-D5W PMX 1 GM in DEXTROSE/WATER 1 100ML.BAG IVPB SCH (09:52)
[2024-07-01 12:04] LABS: Glucose,Whole Blood 208 mg/dL (70-110)
[2024-07-01] MEDS: ALPRAZolam 0.25 MG TAB PO PRN (13:02)
--- NOTE | 2024-07-01 14:39 | P.PN ---
Subjective Progress Note Date: 07/01/24 Principal diagnosis: Acute hypoxic respiratory failure secondary to gram-negative pneumonia and stenotrophomonas infection On 06/22/2024, the patient is being seen for a follow-up. This morning, the patient is on a BiPAP pressure of 16 over 5 cm of water with FiO2 of 60% and the patient is on a lactated Ringer at rate of 50 cc an hour. Chest x-ray was done this morning and it showed patchy infiltrates in lung bases more so on the right consistent with pneumonia. Most recent bronchoscopy yielded stenotrophomonas and the patient has grown Pseudomonas in the past. The patient is currently on IV Zosyn. He remains on DuoNeb nebulized treatments [id number]. He is on Symbicort. He is on IV Solu-Medrol. He is awake and alert and communicating. The white cell count is at 7 with hemoglobin of 10 and platelet count of 189. BUN is 27 with a creatinine of 1.36 and a sodium levels at 138. He is weak and quite debilitated on a chronic basis. Bactrim will be also added to his regimen. On 06/23/2024, the patient is still on Airvo at 35 L with an FiO2 of 50% with a pulse ox of 96%. Feels somewhat improved compared to yesterday. Continues to have a congested cough with limited amount of sputum production. Antibiotic modification was done yesterday and the patient is currently on a combination of Zosyn and IV Bactrim. Renal function remained stable. On today's blood work, the creatinine is at 1.24 with a BUN of 23. Rest of the electrolytes are all s table and within normal limits. White cell count of 5.3 with a hemoglobin of 9. A repeat chest x-ray from today shows some bibasilar pulmonary filtrates slightly worse on the left along with background COPD. Remains on bronchodilators. Remains on steroids. Remains on lactated Ringer at 50 cc an hour. Remains on Symbicort and DuoNeb updrafts [id number]. Home medications have been also resumed. 06/24/2024, the patient remains on Airvo 35 L with an FiO2 of 55%. The patient continues to have respiratory difficulties, cough, congestion, unable to bring up much of sputum. No significant improvement in respiratory status over the past 24 hours. The patient remains on a combination of IV Bactrim and IV Zosyn. The white cell count is at 8.1. Hemoglobin is 8.6 and a platelet count of 142. BUN is 25 with a creatinine of 1.22. He is getting progressively more debilitated and weak. Spending most of the time in bed. Oral intake is diminished and the patient had minimal amount of old. Earlier this morning. I plan to do a bronchoscopy on this patient in the afternoon to further optimize her respiratory status. Suspect mucous plugs. 06/25/2024, the patient is post bronchoscopy. The patient remains on Airvo 35 L with an FiO2 of 55%. Continues to struggle with his breathing. Cough and congestion is improved compared to yesterday post bronchoscopy. Repeat bronchoalveolar lavage was done and results are still pending. Most recent sputum sample is showing Eden, Aspergillus and stenotrophomonas. The patient remains on Bactrim IV. Remains on IV Solu-Medrol. Remains on DuoNeb nebulized treatments [id number]. The white cell count of 7.4 with a hemoglobin 9.5 and a platelet count of 197. Sodium is at 136, BUN 25 with a creatinine of 1.1. ID is on the case. No other new complaints otherwise for now. 06/26/2024, patient is being seen for a follow-up. The patient is sitting up in a chair. Awaiting the results from the bronchoscopy and bronchial lavage. Most recent sputum analysis was positive for stenotrophomonas in addition to Aspergillus and candidal elements. Earlier this morning, the patient was on Airvo. He was at 35 L with an FiO2 of 55%. I took him off the Airvo and I put him on 60 days of oxygen by nasal cannula and his current pulse ox 94%. He remains bronchospastic and wheezy. Awaiting consistent 0.8 edema 9.5 and a plat elet count of 199. BUN is 25 with a creatinine of 1.09 and sodium levels at 135. Communicating. Awake. No chest pain. No other new complaints since yesterday. Awaiting results of the bronchial lavage and the patient remains on IV Bactrim. In terms of his renal function, the patient's creatinine is stable at 1.09. 06/27/2024, the patient continues to have labored breathing. After being on nasal cannula for yesterday, this patient became more short of breath this morning. Based on that, the patient was placed again on Airvo and the patient is currently on 50 L with FiO2 of 60%. Pulse ox in the order of 94 to 95%. He remains on IV Bactrim. Continues to encounter cough and congestion. Unable to bring up much of sputum. No chest pain. Looks quite lethargic and weak. His white cell count today is at 10.2 with a hemoglobin 9.9. BUN is 23 with a creatinine of 1.1. Rest of the medication remains unchanged. Remains on IV Solu-Medrol. Remains on DuoNeb nebulized treatments [id number]. Symbicort will be discontinued and the patient was placed on a combination of Perforomist and Pulmicort. Oral intake remains quite diminished. 06/28/2024, the patient continues to struggle with his breathing. He remains on Airvo and is alternating it with a BiPAP. I am going to switch to BiPAP at a pressure of 10 over 5 cm of water and FiO2 of 50%. Meanwhile, this morning, he remains on Airvo and is currently on 50 L with an FiO2 of 60%. Congested cough. Remains bronchospastic and wheezy. Remains weak and debilitated. Oral intake remains quite diminished. Repeat arthroscopy and lavage yielded no microbial growth and the most recent cultures came back negative. Meanwhile, based on the earlier cultures of stenotrophomonas, the patient remains on Bactrim. Creatini ne is stable at 1.2. Responded adequately to Lasix and the patient produced approximately 2.8 L of negative fluid balance over the past 24 hours. Potassium is at 4.8. WBC count is at 8.4 with hemoglobin 8.6. Chest x-ray findings are essentially unchanged and the patient has stable lower lobe pulmonary filtrates which are essentially unchanged. Seen today on 06/29/2024, patient is feeling better today, breathing easier. However he remains on Airvo with FiO2 of 60% and flow of 55 L/min. Patient is on antibiotics for his pneumonia and positive multi microbial cultures from his sputum and his BAL. This is being addressed accordingly, however the main organism seems to be Stenotrophomonas maltophilia WBC count is 9.8 hemoglobin is 9 basic metabolic profile is normal BUN is 24 creatinine 1.23. This x-ray from yesterday continues show bilateral extensive infiltrates specially at the bases of his right lung and left lung/lingula Patient was evaluated today on 06/30/2024, patient is basically about the same, continues to have cough, shortness of breath, significant amount of secretions, on 8 L high flow nasal cannula, patient is developing worsening electrolytes imbalance, renal functioning is not changing much creatinine 1.19, however his potassium is 5.8 sodium is 129 WBC 16.1. Chest x-ray continues to show significant airspace disease involving the left lower lobe and lingula as well as the right lower lobe, infectious disease is concerned about Bactrim with hyperkalemia, and recommending IV Levaquin instead. Patient was seen today on 07/01/2024, patient feels worse today, he is on Airvo at 70% FiO2 and 55 L flow, continues to have intermittent cough wheezing shortn ess of breath, cough is productive. His antibiotics were changed yesterday from Bactrim to Levaquin, being followed by infectious disease. 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 Basic metabolic profile is better potassium is down to 5.1 BUN is 28 creatinine 1.25. Family is at bedside, and I discussed his pulmonary status with the family Objective - Vital Signs Vital signs: Vital Signs Temp 97.9 F 07/01/24 10:41 Pulse 95 07/01/24 14:00 Resp 22 07/01/24 14:00 BP 123/69 07/01/24 12:24 Pulse Ox 93 L 07/01/24 11:46 FiO2 70 07/01/24 12:24 Intake & Output 06/30/24 07/01/24 07/01/24 18:59 06:59 18:59 Intake Total 180 0 120 Output Total 2400 1200 1700 Balance -2220 -1200 -1580 Weight 66.5 kg Intake: Oral 180 0 120 Output: Urine 2400 1200 1700 Uretheral (Rojas) 900 Other: Voiding Method Indwelling Catheter Indwelling Catheter Indwelling Catheter - Exam General: Revealed 79-year-old white male on Airvo 70% / 55 L/min flow HEENT examination is grossly unremarkable. Mucous membranes are moist. No oral lesions. Neck supple. Full range of motion. No adenopathy thyromegaly or neck vein distention. Cardiovascular examination reveals regular rhythm rate. S1-S2 normal. No S3 or S4. No discernible murmur noted. Heart sounds are distant. Lungs reveal scattered bilateral rhonchi and expiratory wheezes. No crackles. Breath sounds equal but diminished throughout. Abdomen soft and without bowel sounds. No masses or tenderness. Extremities are intact. No cyanosis clubbing or edema. Skin is without rash or lesion. Neurologic alert oriented x 3 no gross focal deficit Theatric: Normal mood affect and normal mental status examination - Labs CBC & Chem 7: 07/01/24 09:17 07/01/24 07:46 Labs: Abnormal Lab Results - Last 24 Hours (Table) 06/30/24 06/30/24 07/01/24 Range/Units 16:32 20:05 07:03 WBC (3.8-10.6) k/uL RBC (4.30-5.90) m/uL Hgb (13.0-17.5) gm/dL Hct (39.0-53.0) % RDW (11.5-15.5) % Sodium (137-145) mmol/L BUN (9-20) mg/dL Glucose (74-99) mg/dL POC Glucose (mg/dL) 156 H 143 H 142 H (70-110) mg/dL Total Protein (6.3-8.2) g/dL Albumin (3.5-5.0) g/dL 07/01/24 07/01/24 07/01/24 Range/Units 07:46 09:17 12:02 WBC 15.8 H (3.8-10.6) k/uL RBC 3.15 L (4.30-5.90) m/uL Hgb 9.8 L (13.0-17.5) gm/dL Hct 28.0 L (39.0-53.0) % RDW 15.6 H (11.5-15.5) % Sodium 131 L (137-145) mmol/L BUN 28 H (9-20) mg/dL Glucose 122 H (74-99) mg/dL POC Glucose (mg/dL) 208 H (70-110) mg/dL Total Protein 4.8 L (6.3-8.2) g/dL Albumin 2.8 L (3.5-5.0) g/dL Microbiology - Last 24 Hours (Table) 06/27/24 14:27 Gram Stain - Final Sputum Sputum Culture - Final Assessment and Plan Assessment: Impression: Acute hypoxic respiratory failure, secondary to pneumonia/multimicrobial Recurrent respiratory tract infection/pneumonia and the patient continues to low er lobe consolidation previous culture showing gram-negative bacterial infection including stenotrophomonas. Suspect ongoing mucous plugging, leading to shortness of breath Recent hospitalization for a COPD exacerbation and a COVID-19 infection, Acute COPD exacerbation secondary to above Previous hospitalization for a pseudomonal tracheobronchitis/pneumonia Oxygen dependent chronic obstructive pulmonary disease with an FEV1 value 39% of predicted Chronic tobacco dependence of greater than 60 years Right upper lobe PET avid pulmonary nodule which is being monitored on outpatient basis, measuring up to 1.4 cm in size, enlarging in size and the patient will need an SBRT at a later stage on outpatient basis. History of non-Hodgkin's lymphoma Chronic stage III kidney disease Coronary disease with previous coronary artery bypass surgery in 2001 History of abdominal aortic aneurysm status post stent placement in March 2022 Carotid stenosis status post endarterectomy History of ESBL E. coli and bronchial wash in 2021 Hyperlipidemia Hypertension Recommendation: Continue Levaquin Continue Airvo and titrate accordingly Use BiPAP as needed Continue aggressive pulmonary toileting Continue to closely monitor renal profile, and electrolytes Continue bronchodilators and IV Solu-Medrol Continue Pulmicort and Perforomist Chest x-ray yesterday was reviewed, showed no change bilateral pneumonia as noted Continue diuretics, continue to monitor renal profile Will continue to follow Prognosis is relatively guarded. Time with Patient: Less than 30
--- NOTE | 2024-07-01 14:51 | CT ---
EXAMINATION TYPE: CT chest wo con CT DLP: 392.4 mGycm, Automated exposure control for dose reduction was used. DATE OF EXAM: 07/01/2024 2:43 PM COMPARISON: 06/24/2022 CLINICAL INDICATION: Male, 79 years old with history of Pneumonia/empyema; PHH, PNEUMONIA TECHNIQUE: Multiple axial images were obtained through the chest. Sagittal and coronal reformats were created for review. MIP was performed on a separate workstation. Contrast used: mL of (None if empty) Oral contrast used: (None if empty) FINDINGS: LUNGS/ PLEURA: Small right pleural effusion trace left. Associated atelectasis. Scattered moderate to severe centrilobular and paraseptal emphysema. Scattered airspace opacities and atelectasis in the l marah bases. Right lower lobe 13 mm pulmonary nodule. Surgical clips AIRWAY: Patent and unremarkable. HEART: The heart is mildly increased in size..Atherosclerosis of the arterial vasculature. MEDIASTINUM: No gross evidence of adenopathy. VASCULATURE: No aortic aneurysm. Aortobiiliac stent graft partially visualized. MUSCULOSKELETAL: Moderate disc degeneration changes are present throughout the thoracolumbar spine. S ternotomy wires are present.e SOFT TISSUES/LYMPH NODES: Unremarkable. LOWER NECK: No significant findings. UPPER ABDOMEN: Left renal cortical probable cyst. Cholelithiasis. IMPRESSION: 1. Small right pleural effusion with moderate to severe emphysema superimposed infection is not excl uded. 2. Right lower lobe 13 mm pulmonary nodule, short-term follow-up in 3 months to confirm finding is r ecommended given other evidence of active airspace disease in this may represent focal airspace disea se. 3. Mild cardiomegaly. 4. Cholelithiasis. [facility], Workstation: [id number][id number], 07/01/2024 2:48 PM
--- NOTE | 2024-07-01 15:03 | P.PN ---
Subjective Progress Note Date: 07/01/24 Hospital course: Patient is a very pleasant 79-year-old male with a past medical history of systolic CHF with EF 40 to 45%, COPD on 3L home O2, chronic kidney disease, hypertension, hyperlipidemia, non-Hodgkins lymphoma, CAD with CABG, AAA with stent, carotid stenosis with endarterectomy presents to the ED for shortness of breath. Apparently his O2 sat was in the 70s when EMS arrived on his 3L NC. Recently admitted from 06/05-06/07 for similar complaints, COVID + at that time, treated with bronchodilators, Zosyn, SoluMedrol and discharged on a Prednisone taper and to complete a course of Ciprofloxacin. He recently underwent bronchoscopy with BAL with Dr. Cano on 05/13 with cultures resulting in Pseudomonas and eden albicans. He was started on Ciprofloxacin at that time. He underwent repeat bronchoscopy with BAL with Dr. Cano on 06/03 which grew stenotrophomonas maltophilia. He was continued on Ciprofloxacin and according to the patient has been taking it over the past 5-6 weeks. In the ED he underwent extensive evaluation. Tmax 100F, BP 119/62, HR 102, RR 40, 91% on 3L. CBC, Coag panel, CMP significant for RBC 4, Hg 12.4, Hct 35.8, PT 9.9, bicarb 33, BUN 39, Cr 1.91, glu 131. Lactic acid 2.9. Troponin 0.054. EKG sinus tachycardia with RBBB. CXR showed COPD with patchy interstitial densities increased from previous CXRs. Patient is admitted for further workup and management. Patient seen by pulmonology and started on IV Zosyn and Bactrim. Patient also on IV steroids. Patient was on BiPAP. Patient weaned down to Airvo. Patient had another bronchoscopy done on 06/24/2024 that showed tracheobronchomalacia with copious thick secretions and mucous plugging. Sputum culture obtained at this time showing Aspergillus fumigatus, stenotrophomonas maltophilia, and Eden albicans. Patient currently on Bactrim 352 mg IVPB every 8 hours. Physical exam: Patient was seen and fully evaluated at bedside this morning. Patient reports feeling increased shortness of breath since yesterday and continued productive cough. He expresses his frustration over still not being able to breathe better along with frustration over his nose feeling so dry and irritated from the oxygen. Patient continues to switch back and forth from BiPAP to Airvo. Patient's son at bedside. All questions answered at this time. Vital signs reviewed and stable. General: Nontoxic, no distress and appears stated age. Derm: Skin warm and dry, normal coloration for ethnicity. Head: Atraumatic, normocephalic and symmetric. Eyes: EOM's intact, no lid lag, and anicteric sclera Mouth: no lip lesions, mucus membranes moist Cardiovascular: regular rate and rhythm with normal S1S2, no murmur, positive posterior tibial pulses bilaterally, and cap refill < 2 seconds. Lungs: Respirations even, regular, and unlabored on Airvo. Lungs diminished with diffuse expiratory wheezes. No rhonchi or rails noted this morning. Abdominal: soft, nontender to palpation, no guarding, no appreciable organomegaly Ext: ROM intact. No gross muscle atrophy, no edema, no contractures Neuro: Speech clear, face symmetrical and CN II-XII grossly intact with no noted focal neuro deficits Psych: Alert and oriented to person, place, time, and situation. Appropriate and pleasant affect. Assessment and Plan of Care: Acute on chronic hypoxic respiratory failure, likely from COVID sequelae complicated by development of pseudomonas and stenotropomonas maltophilia pneumonia Sepsis upon admission, secondary to above Acute on chronic COPD exacerbation, secondary to above Generalized weakness and fatigue secondary to physical decomposition resulting from prolonged hospitalization -Patient in the last month had BAL cultures that were positive for Pseudomonas and stenotrophomonas maltophilia -Patient underwent 9-day course of IV antibiotics with Bactrim. Infectious disease discontinuing Bactrim and starting patient on Levaquin 750 mg IVPB every 48 hours. -Continue with supplemental oxygen maintain SpO2 equal to or greater than 90%. Patient currently remains on Airvo. Wean O2 as tolerated -Sputum culture positive for aspergillus fumigatus, stenotrophomonas maltophilia, and Eden albicans. Repeat cultures from bronchoscopy 06/27/2024 negative showing no growth. -Infectious disease following, reviewed documentation in chart.. -Pulmonology following, took patient for bronchoscopy with BAL on 06/24/2024 which revealed tracheobronchomalacia with copious thick secretions and mucous plugging. -Continue with Symbicort 2 puffs INH BID. DuoNebs scheduled Q4H and as needed for wheezing/shortness of breath. Singulair 10 mg PO HS, and IV steroids with SoluMedrol 60 mg IV Q8H. -Repeat chest x-ray completed this morning remains unchanged, possibly slightly worsened when compared to previous x-ray completed 06/28/2024. -PT/OT following Hyponatremia -Improving after administration of IV Lasix, will administer an additional dose of Lasix 40 mg IVP and continue monitor closely with repeat a.m. labs. Hyerkalemia -Hyperkalemia likely secondary to Bactrim. Patient received a single dose of Lokelma and IV Lasix and hyperkalemia has resolved. Infectious disease discontinuing Bactrim and starting patient on Levaquin instead. -Will continue to monitor closely with repeat a.m. labs. Elevated troponin -Troponins flat and ACS ruled out -Continue with ASA 81 mg PO QD. Lipitor 40 mg PO QHS. Plavix 75 mg PO QD. Metoprolol 25 mg PO QD. 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 BRITT resolved and renal function back at baseline with BUN of 25, creatinine 1.19, and GFR of 57. Lactic acidosis -Resolved Acute blood loss anemia -Patient's hemoglobin was trending down and subcu Lovenox for DVT prophylaxis was discontinued and orders placed for SCDs. -Today hemoglobin is 9.7 and stable -Patient at this time is too unstable for any endoscopic procedures Chronic conditions: Systolic CHF with EF 40-45%: Appears euvolemic. Hypertension: Metoprolol as above. Dyslipidemia: Lipitor as above. Non-Hodgkins lymphoma CAD with CABG: ASA, Lipitor, Plavix, Metoprolol as above. Carotid stenosis with endarterectomy: ASA, Lipitor, Plavix, as above. Data and imaging reviewed: Morning labs reviewed. CBC showing leukocytosis with WBC count of 15.8 and stable normocytic anemia with hemoglobin of 9.8. BMP showing improvement of sodium from 1 29-1 31 after administration of single dose of IV Lasix and renal function stable with BUN of 28, creatinine 1.25, GFR 54. Blood glucose was 122. Magnesium slightly low at 1.7 otherwise normal findings. Documented urinary output over the past 24 hours was 3600 cc. Vital signs reviewed. Blood pressure 117/63, heart rate 98, respiratory rate 22, temp 97.9 F, and SpO2 of 91% on Airvo with FiO2 of 72% Prognosis remains guarded. CODE STATUS: Full code DVT prophylaxis: SCDs Anticipated discharge date: Pending clinical course Anticipated discharge place: Pending clinical course Patient was seen independently by Nurse Pracitioner. This document was prepared using [employer] dictation software. Please allow for errors in matrix inspector, while rare they do occur. I reviewed the documentation as provided by the MICHELE above, who is the original author of this note. I agree with the documented assessment and plan, with the following changes: none Objective - Vital Signs Vital signs: Vital Signs Temp 97 F L 07/01/24 07:02 Pulse 94 07/01/24 07:07 Resp 21 07/01/24 07:07 BP 138/67 07/01/24 07:02 Pulse Ox 94 L 07/01/24 07:02 FiO2 66 07/01/24 07:02 Intake & Output 06/30/24 07/01/24 07/01/24 18:59 06:59 18:59 Intake Total 180 0 Output Total 2400 1200 800 Balance -2220 -1200 -800 Weight 66.5 kg Intake: Oral 180 0 Output: Urine 2400 1200 800 Other: Voiding Method Indwelling Catheter Indwelling Catheter Indwelling Catheter - Labs CBC & Chem 7: 07/01/24 09:17 07/01/24 07:46 Labs: Abnormal Lab Results - Last 24 Hours (Table) 06/30/24 06/30/24 06/30/24 Range/Units 11:20 16:32 20:05 Sodium (137-145) mmol/L BUN (9-20) mg/dL Glucose (74-99) mg/dL POC Glucose (mg/dL) 213 H 156 H 143 H (70-110) mg/dL Total Protein (6.3-8.2) g/dL Albumin (3.5-5.0) g/dL 07/01/24 07/01/24 Range/Units 07:03 07:46 Sodium 131 L (137-145) mmol/L BUN 28 H (9-20) mg/dL Glucose 122 H (74-99) mg/dL POC Glucose (mg/dL) 142 H (70-110) mg/dL Total Protein 4.8 L (6.3-8.2) g/dL Albumin 2.8 L (3.5-5.0) g/dL Microbiology - Last 24 Hours (Table) 06/27/24 14:27 Gram Stain - Preliminary Sputum Sputum Culture - Preliminary
[2024-07-01 16:50] LABS: Glucose,Whole Blood 155 mg/dL (70-110)
[2024-07-01 19:56] LABS: Glucose,Whole Blood 89 mg/dL (70-110)
[2024-07-02 07:21] LABS: Glucose,Whole Blood 106 mg/dL (70-110)
--- NOTE | 2024-07-02 08:57 | P.PN ---
Subjective Progress Note Date: 07/01/24 Principal diagnosis: Reason for follow-up is pneumonia Patient is a 79-year-old male with a past medical history significant for non-Hodgkin lymphoma COPD hypertension hyperlipidemia heart failure recently diagnosed with a COVID-19 presented to hospital for evaluation of increasing shortness of breath and cough sputum production did have patient evaluated on the chest x-ray concerning for pneumonia. On today's evaluation that is 07/01/2024, Patient is afebrile this morning patient continued complaint of shortness of breath on minimal exertion even at rest denies any chest pain no worsening cough or sputum production no vomiting or diarrhea has been reported. Patient white count slightly low at 15.8 potassium is 5.1 creatinine is 1.2 5 repeat sputum so far pending Objective - Vital Signs Vital signs: Vital Signs Temp 97.9 F 07/01/24 10:41 Pulse 95 07/01/24 12:24 Resp 22 07/01/24 12:24 BP 123/69 07/01/24 12:24 Pulse Ox 93 L 07/01/24 11:46 FiO2 70 07/01/24 12:24 Intake & Output 06/30/24 07/01/24 07/01/24 18:59 06:59 18:59 Intake Total 180 0 120 Output Total 2400 1200 800 Balance -2220 1200 -680 Weight 66.5 kg Intake: Oral 180 0 120 Output: Urine 2400 1200 800 Other: Voiding Method Indwelling Catheter Indwelling Catheter Indwelling Catheter - Exam GENERAL DESCRIPTION: An elderly male up in bed in no distress RESPIRATORY SYSTEM: Unlabored breathing , coarse breath sounds bilaterally HEART: S1 S2 regular rate and rhythm , ABDOMEN: Soft , no tenderness EXTREMITIES: No edema feet - Labs CBC & Chem 7: 07/01/24 09:17 07/01/24 07:46 Labs: Abnormal Lab Results - Last 24 Hours (Table) 06/30/24 06/30/24 07/01/24 Range/Units 16:32 20:05 07:03 WBC (3.8-10.6) k/uL RBC (4.30-5.90) m/uL Hgb (13.0-17.5) gm/dL Hct (39.0-53.0) % RDW (11.5-15.5) % Sodium (137-145) mmol/L BUN (9-20) mg/dL Glucose (74-99) mg/dL POC Glucose (mg/dL) 156 H 143 H 142 H (70-110) mg/dL Total Protein (6.3-8.2) g/dL Albumin (3.5-5.0) g/dL 07/01/24 07/01/24 07/01/24 Range/Units 07:46 09:17 12:02 WBC 15.8 H (3.8-10.6) k/uL RBC 3.15 L (4.30-5.90) m/uL Hgb 9.8 L (13.0-17.5) gm/dL Hct 28.0 L (39.0-53.0) % RDW 15.6 H (11.5-15.5) % Sodium 131 L (137-145) mmol/L BUN 28 H (9-20) mg/dL Glucose 122 H (74-99) mg/dL POC Glucose (mg/dL) 208 H (70-110) mg/dL Total Protein 4.8 L (6.3-8.2) g/dL Albumin 2.8 L (3.5-5.0) g/dL Microbiology - Last 24 Hours (Table) 06/27/24 14:27 Gram Stain - Final Sputum Sputum Culture - Final Assessment and Plan (1) Pneumonia Current Visit: Yes Status: Acute Code(s): J18.9 - PNEUMONIA, UNSPECIFIED ORGANISM SNOMED Code(s): 196572831 (2) Sepsis Current Visit: No Status: Acute Code(s): A41.9 - SEPSIS, UNSPECIFIED ORGANISM SNOMED Code(s): 89653560 Plan: 1patient presented to hospital with sepsis in this patient who did have fever tachycardia mild hypotension source is likely pneumonia in this patient who recently did have a COVID-19 will need to cover for resistant gram negative to be the likely etiology and the patient recently grew Pseudomonas in his BAL culture 2-blood cultures are so far negative initial sputum has been negative, urine for Legionella antigen was negative mycoplasma IgM not elevated, repeat sputum is growing stenotrophomonas as well as Aspergillus and Eden 3 Aspergillus CF antibodies came back negative, and Aspergillus galactomannan is currently pending 4patient did have improvement depression with switch antibiotic to Levaquin to continue we will check a CT of the chest and monitor clinical course closely Dictation was produced using dragon dictation software. please excuse any grammatical, word or spelling errors. Time with Patient: Less than 30
[2024-07-02] MEDS: FLUTICASONE NASAL 50MCG/SPRAY 16GM BTL EA NOSTRIL PRN (09:21)
[2024-07-02 10:49] LABS: ALT 40 U/L (4-49); AST 52 U/L (17-59); African American GFR (CKD) 55 (>60 ml/min/1.73 sqM); Albumin 2.8 g/dL (3.5-5.0); Alkaline Phosphatase 98 U/L (38-126); Anion Gap 4 mmol/L; Blood Urea Nitrogen 30 mg/dL (9-20); Calcium 8.5 mg/dL (8.4-10.2); Carbon Dioxide 26 mmol/L (22-30); Chloride 101 mmol/L (98-107); Glucose 140 mg/dL (74-99); Magnesium 1.9 mg/dL (1.6-2.3); Non-African American GFR(CKD) 48 (>60 ml/min/1.73 sqM); Potassium 4.8 mmol/L (3.5-5.1); Sodium 131 mmol/L (137-145); Total Bilirubin 0.7 mg/dL (0.2-1.3)
[2024-07-02 11:00] LABS: HCT 29.1 % (39.0-53.0); HGB 9.8 gm/dL (13.0-17.5); MCH 30.7 pg (25.0-35.0); MCHC 33.7 g/dL (31.0-37.0); Mean Platelet Volume 9.7; Platelet Count 184 k/uL (150-450); RDW 15.8 % (11.5-15.5); WBC 13.6 k/uL (3.8-10.6)
[2024-07-02 12:14] LABS: Glucose,Whole Blood 207 mg/dL (70-110)
--- NOTE | 2024-07-02 13:43 | P.PN ---
Subjective Progress Note Date: 07/02/24 Principal diagnosis: Acute hypoxic respiratory failure secondary to gram-negative pneumonia and stenotrophomonas infection On 06/22/2024, the patient is being seen for a follow-up. This morning, the patient is on a BiPAP pressure of 16 over 5 cm of water with FiO2 of 60% and the patient is on a lactated Ringer at rate of 50 cc an hour. Chest x-ray was done this morning and it showed patchy infiltrates in lung bases more so on the right consistent with pneumonia. Most recent bronchoscopy yielded stenotrophomonas and the patient has grown Pseudomonas in the past. The patient is currently on IV Zosyn. He remains on DuoNeb nebulized treatments [id number]. He is on Symbicort. He is on IV Solu-Medrol. He is awake and alert and communicating. The white cell count is at 7 with hemoglobin of 10 and platelet count of 189. BUN is 27 with a creatinine of 1.36 and a sodium levels at 138. He is weak and quite debilitated on a chronic basis. Bactrim will be also added to his regimen. On 06/23/2024, the patient is still on Airvo at 35 L with an FiO2 of 50% with a pulse ox of 96%. Feels somewhat improved compared to yesterday. Continues to have a congested cough with limited amount of sputum production. Antibiotic modification was done yesterday and the patient is currently on a combination of Zosyn and IV Bactrim. Renal function remained stable. On today's blood work, the creatinine is at 1.24 with a BUN of 23. Rest of the electrolytes are all s table and within normal limits. White cell count of 5.3 with a hemoglobin of 9. A repeat chest x-ray from today shows some bibasilar pulmonary filtrates slightly worse on the left along with background COPD. Remains on bronchodilators. Remains on steroids. Remains on lactated Ringer at 50 cc an hour. Remains on Symbicort and DuoNeb updrafts [id number]. Home medications have been also resumed. 06/24/2024, the patient remains on Airvo 35 L with an FiO2 of 55%. The patient continues to have respiratory difficulties, cough, congestion, unable to bring up much of sputum. No significant improvement in respiratory status over the past 24 hours. The patient remains on a combination of IV Bactrim and IV Zosyn. The white cell count is at 8.1. Hemoglobin is 8.6 and a platelet count of 142. BUN is 25 with a creatinine of 1.22. He is getting progressively more debilitated and weak. Spending most of the time in bed. Oral intake is diminished and the patient had minimal amount of old. Earlier this morning. I plan to do a bronchoscopy on this patient in the afternoon to further optimize her respiratory status. Suspect mucous plugs. 06/25/2024, the patient is post bronchoscopy. The patient remains on Airvo 35 L with an FiO2 of 55%. Continues to struggle with his breathing. Cough and congestion is improved compared to yesterday post bronchoscopy. Repeat bronchoalveolar lavage was done and results are still pending. Most recent sputum sample is showing Eden, Aspergillus and stenotrophomonas. The patient remains on Bactrim IV. Remains on IV Solu-Medrol. Remains on DuoNeb nebulized treatments [id number]. The white cell count of 7.4 with a hemoglobin 9.5 and a platelet count of 197. Sodium is at 136, BUN 25 with a creatinine of 1.1. ID is on the case. No other new complaints otherwise for now. 06/26/2024, patient is being seen for a follow-up. The patient is sitting up in a chair. Awaiting the results from the bronchoscopy and bronchial lavage. Most recent sputum analysis was positive for stenotrophomonas in addition to Aspergillus and candidal elements. Earlier this morning, the patient was on Airvo. He was at 35 L with an FiO2 of 55%. I took him off the Airvo and I put him on 60 days of oxygen by nasal cannula and his current pulse ox 94%. He remains bronchospastic and wheezy. Awaiting consistent 0.8 edema 9.5 and a plat elet count of 199. BUN is 25 with a creatinine of 1.09 and sodium levels at 135. Communicating. Awake. No chest pain. No other new complaints since yesterday. Awaiting results of the bronchial lavage and the patient remains on IV Bactrim. In terms of his renal function, the patient's creatinine is stable at 1.09. 06/27/2024, the patient continues to have labored breathing. After being on nasal cannula for yesterday, this patient became more short of breath this morning. Based on that, the patient was placed again on Airvo and the patient is currently on 50 L with FiO2 of 60%. Pulse ox in the order of 94 to 95%. He remains on IV Bactrim. Continues to encounter cough and congestion. Unable to bring up much of sputum. No chest pain. Looks quite lethargic and weak. His white cell count today is at 10.2 with a hemoglobin 9.9. BUN is 23 with a creatinine of 1.1. Rest of the medication remains unchanged. Remains on IV Solu-Medrol. Remains on DuoNeb nebulized treatments [id number]. Symbicort will be discontinued and the patient was placed on a combination of Perforomist and Pulmicort. Oral intake remains quite diminished. 06/28/2024, the patient continues to struggle with his breathing. He remains on Airvo and is alternating it with a BiPAP. I am going to switch to BiPAP at a pressure of 10 over 5 cm of water and FiO2 of 50%. Meanwhile, this morning, he remains on Airvo and is currently on 50 L with an FiO2 of 60%. Congested cough. Remains bronchospastic and wheezy. Remains weak and debilitated. Oral intake remains quite diminished. Repeat arthroscopy and lavage yielded no microbial growth and the most recent cultures came back negative. Meanwhile, based on the earlier cultures of stenotrophomonas, the patient remains on Bactrim. Creatini ne is stable at 1.2. Responded adequately to Lasix and the patient produced approximately 2.8 L of negative fluid balance over the past 24 hours. Potassium is at 4.8. WBC count is at 8.4 with hemoglobin 8.6. Chest x-ray findings are essentially unchanged and the patient has stable lower lobe pulmonary filtrates which are essentially unchanged. Seen today on 06/29/2024, patient is feeling better today, breathing easier. However he remains on Airvo with FiO2 of 60% and flow of 55 L/min. Patient is on antibiotics for his pneumonia and positive multi microbial cultures from his sputum and his BAL. This is being addressed accordingly, however the main organism seems to be Stenotrophomonas maltophilia WBC count is 9.8 hemoglobin is 9 basic metabolic profile is normal BUN is 24 creatinine 1.23. This x-ray from yesterday continues show bilateral extensive infiltrates specially at the bases of his right lung and left lung/lingula Patient was evaluated today on 06/30/2024, patient is basically about the same, continues to have cough, shortness of breath, significant amount of secretions, on 8 L high flow nasal cannula, patient is developing worsening electrolytes imbalance, renal functioning is not changing much creatinine 1.19, however his potassium is 5.8 sodium is 129 WBC 16.1. Chest x-ray continues to show significant airspace disease involving the left lower lobe and lingula as well as the right lower lobe, infectious disease is concerned about Bactrim with hyperkalemia, and recommending IV Levaquin instead. Patient was seen today on 07/01/2024, patient feels worse today, he is on Airvo at 70% FiO2 and 55 L flow, continues to have intermittent cough wheezing shortn ess of breath, cough is productive. His antibiotics were changed yesterday from Bactrim to Levaquin, being followed by infectious disease. 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 Basic metabolic profile is better potassium is down to 5.1 BUN is 28 creatinine 1.25. Family is at bedside, and I discussed his pulmonary status with the family Reevaluate today on 07/02/2024, patient is feeling a bit better today compared to yesterday. Breathing easier, CT of the chest was reviewed patient has significant COPD/emphysema and bilateral airspace disease patient remains on Levaquin, bronchodilators, and steroids, patient is also receiving multiple bronchodilators, some improvement but not back to baseline. Still requiring Airvo with high flow and high FiO2. WBC count today is 13.6 hemoglobin 9.8 basic metabolic profile is normal BUN is 30 creatinine 1.38 Objective - Vital Signs Vital signs: Vital Signs Temp 98.3 F 07/02/24 10:54 Pulse 88 07/02/24 12:00 Resp 18 07/02/24 12:00 BP 127/65 07/02/24 10:54 Pulse Ox 95 07/02/24 10:54 FiO2 75 07/02/24 08:25 Intake & Output 07/01/24 07/02/24 07/02/24 18:59 06:59 18:59 Intake Total 477 Output Total 1850 775 424 Balance -8142 -773 -950 Intake: Oral 477 Output: Urine 3500 775 950 Uretheral (Rojas) 900 Other: Voiding Method Indwelling Catheter Indwelling Catheter Indwelling Catheter # Bowel Movements 1 - Exam General: Revealed 79-year-old white male on Airvo HEENT examination is grossly unremarkable. Mucous membranes are moist. No oral lesions. Neck supple. Full range of motion. No adenopathy thyromegaly or neck vein distention. Cardiovascular examination reveals regular rhythm rate. S1-S2 normal. No S3 or S4. No discernible murmur noted. Heart sounds are distant. Lungs reveal scattered bilateral rhonchi and expiratory wheezes. Abdomen soft and without bowel sounds. No masses or tenderness. Extremities are intact. No cyanosis clubbing or edema. Skin is without rash or lesion. Neurologic alert oriented x 3 no gross focal deficit Theatric: Normal mood affect and normal mental status examination - Labs CBC & Chem 7: 07/02/24 09:40 07/02/24 09:40 Labs: Abnormal Lab Results - Last 24 Hours (Table) 07/01/24 07/02/24 07/02/24 Range/Units 16:48 09:40 09:40 WBC 13.6 H (3.8-10.6) k/uL RBC 3.20 L (4.30-5.90) m/uL Hgb 9.8 L (13.0-17.5) gm/dL Hct 29.1 L (39.0-53.0) % RDW 15.8 H (11.5-15.5) % Sodium 131 L (137-145) mmol/L BUN 30 H (9-20) mg/dL Creatinine 1.38 H (0.66-1.25) mg/dL Glucose 140 H (74-99) mg/dL POC Glucose (mg/dL) 155 H (70-110) mg/dL Total Protein 5.0 L (6.3-8.2) g/dL Albumin 2.8 L (3.5-5.0) g/dL 07/02/24 Range/Units 12:12 WBC (3.8-10.6) k/uL RBC (4.30-5.90) m/uL Hgb (13.0-17.5) gm/dL Hct (39.0-53.0) % RDW (11.5-15.5) % Sodium (137-145) mmol/L BUN (9-20) mg/dL Creatinine (0.66-1.25) mg/dL Glucose (74-99) mg/dL POC Glucose (mg/dL) 207 H (70-110) mg/dL Total Protein (6.3-8.2) g/dL Albumin (3.5-5.0) g/dL Assessment and Plan Assessment: Impression: Acute hypoxic respiratory failure, secondary to pneumonia/multimicrobial Recurrent respiratory tract infection/pneumonia and the patient continues to lower lobe consolidation previous culture showing gram-negative bacterial infection including stenotrophomonas. Suspect ongoing mucous plugging, leading to shortness of breath Recent hospitalization for a COPD exacerbation and a COVID-19 infection, Acute COPD exacerbation secondary to above Previous hospitalization for a pseudomonal tracheobronchitis/pneumonia Oxygen dependent chronic obstructive pulmonary disease with an FEV1 value 39% of predicted Chronic tobacco dependence of greater than 60 years Right upper lobe PET avid pulmonary nodule which is being monitored on outpatient basis, measuring up to 1.4 cm in size, enlarging in size and the patient will need an SBRT at a later stage on outpatient basis. History of non-Hodgkin's lymphoma Chronic stage III kidney disease Coronary disease with previous coronary artery bypass surgery in 2001 History of abdominal aortic aneurysm status post stent placement in March 2022 Carotid stenosis status post endarterectomy History of ESBL E. coli and bronchial wash in 2021 Hyperlipidemia Hypertension Recommendation: Continue Levaquin Continue Airvo and titrate accordingly Use BiPAP as needed Continue aggressive pulmonary toileting Continue to closely monitor renal profile, and electrolytes Continue bronchodilators and IV Solu-Medrol Continue Pulmicort and Perforomist CT of the chest was reviewed and discussed the findings with the patient he does have a nodule that needs to be followed up on outpatient basis Continue diuretics, continue to monitor renal profile Will continue to follow Prognosis is relatively guarded. Time with Patient: Less than 30
[2024-07-02 16:47] LABS: Glucose,Whole Blood 155 mg/dL (70-110)
--- NOTE | 2024-07-02 17:42 | P.PN ---
Subjective Progress Note Date: 07/02/24 Hospital course: Patient is a very pleasant 79-year-old male with a past medical history of systolic CHF with EF 40 to 45%, COPD on 3L home O2, chronic kidney disease, hypertension, hyperlipidemia, non-Hodgkins lymphoma, CAD with CABG, AAA with stent, carotid stenosis with endarterectomy presents to the ED for shortness of breath. Apparently his O2 sat was in the 70s when EMS arrived on his 3L NC. Recently admitted from 06/05-06/07 for similar complaints, COVID + at that time, treated with bronchodilators, Zosyn, SoluMedrol and discharged on a Prednisone taper and to complete a course of Ciprofloxacin. He recently underwent bronchoscopy with BAL with Dr. Cano on 05/13 with cultures resulting in Pseudomonas and eden albicans. He was started on Ciprofloxacin at that time. He underwent repeat bronchoscopy with BAL with Dr. Cano on 06/03 which grew stenotrophomonas maltophilia. He was continued on Ciprofloxacin and according to the patient has been taking it over the past 5-6 weeks. In the ED he underwent extensive evaluation. Tmax 100F, BP 119/62, HR 102, RR 40, 91% on 3L. CBC, Coag panel, CMP significant for RBC 4, Hg 12.4, Hct 35.8, PT 9.9, bicarb 33, BUN 39, Cr 1.91, glu 131. Lactic acid 2.9. Troponin 0.054. EKG sinus tachycardia with RBBB. CXR showed COPD with patchy interstitial densities increased from previous CXRs. Patient is admitted for further workup and management. Patient seen by pulmonology and started on IV Zosyn and Bactrim. Patient also on IV steroids. Patient was on BiPAP. Patient weaned down to Airvo. Patient had another bronchoscopy done on 06/24/2024 that showed tracheobronchomalacia with copious thick secretions and mucous plugging. Sputum culture obtained at this time showing Aspergillus fumigatus, stenotrophomonas maltophilia, and Eden albicans. Patient currently on Bactrim 352 mg IVPB every 8 hours. Physical exam: Patient was seen and fully evaluated at bedside this morning. Patient smiling this morning states his breathing seems like it is improving today and that he feels much better than he felt yesterday. Currently denies any complaints at this time. He remains on Airvo. Vital signs reviewed and stable. General: Nontoxic, no distress and appears stated age. Derm: Skin warm and dry, normal coloration for ethnicity. Head: Atraumatic, normocephalic and symmetric. Eyes: EOM's intact, no lid lag, and anicteric sclera Mouth: no lip lesions, mucus membranes moist Cardiovascular: regular rate and rhythm with normal S1S2, no murmur, positive posterior tibial pulses bilaterally, and cap refill < 2 seconds. Lungs: Respirations even, regular, and unlabored on Airvo. Lungs diminished with diffuse expiratory wheezes. No rhonchi or rails noted this morning. Abdominal: soft, nontender to palpation, no guarding, no appreciable or ganomegaly Ext: ROM intact. No gross muscle atrophy, no edema, no contractures Neuro: Speech clear, face symmetrical and CN II-XII grossly intact with no noted focal neuro deficits Psych: Alert and oriented to person, place, time, and situation. Appropriate and pleasant affect. Assessment and Plan of Care: Acute on chronic hypoxic respiratory failure, likely from COVID sequelae complicated by development of pseudomonas and stenotropomonas maltophilia pneumonia Sepsis upon admission, secondary to above Acute on chronic COPD exacerbation, secondary to above Generalized weakness and fatigue secondary to physical decomposition resulting from prolonged hospitalization -Patient in the last month had BAL cultures that were positive for Pseudomonas and stenotrophomonas maltophilia -Patient underwent 9-day course of IV antibiotics with Bactrim secondary to hyperkalemia, Bactrim was discontinued and patient was started on Levaquin 750 mg IVPB every 48 hours. -Continue with supplemental oxygen maintain SpO2 equal to or greater than 90%. Patient currently remains on Airvo. Wean O2 as tolerated -Sputum culture positive for aspergillus fumigatus, stenotrophomonas maltophilia, and Eden albicans. Repeat cultures from bronchoscopy 06/27/2024 negative showing no growth. -Infectious disease following, reviewed documentation in chart.. -Pulmonology following, took patient for bronchoscopy with BAL on 06/24/2024 which revealed tracheobronchomalacia with copious thick secretions and mucous plugging. Reviewed documentation in chart. -Continue with Symbicort 2 puffs INH BID. DuoNebs scheduled Q4H and as needed for wheezing/shortness of breath. Singulair 10 mg PO HS, and IV steroids with SoluMedrol 60 mg IV Q8H. -CT chest was completed showing small right pleural effusion and moderate to severe emphysema with right lower lobe 13 mm pulmonary nodule. -PT/OT following Pulmonary nodule, incidental finding on CT -Recommend outpatient close monitoring/surveillance with repeat CT in 3 months. Hyponatremia -Improving after administration of IV Lasix, will administer an additional dose of Lasix 40 mg IVP and continue monitor closely with repeat a.m. labs. Hyerkalemia -Hyperkalemia likely secondary to Bactrim. Patient received a single dose of Lokelma and IV Lasix and hyperkalemia has resolved. Infectious disease discontinuing Bactrim and starting patient on Levaquin instead. -Will continue to monitor closely with repeat a.m. labs. Elevated troponin -Troponins flat and ACS ruled out -Continue with ASA 81 mg PO QD. Lipitor 40 mg PO QHS. Plavix 75 mg PO QD. Metoprolol 25 mg PO QD. 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 BRITT resolved and renal function back at baseline with BUN of 25, creatinine 1.19, and GFR of 57. Lactic acidosis -Resolved Acute blood loss anemia -Patient's hemoglobin was trending down and subcu Lovenox for DVT prophylaxis was discontinued and orders placed for SCDs. -Today hemoglobin is 9.7 and stable -Patient at this time is too unstable for any endoscopic procedures Chronic conditions: Systolic CHF with EF 40-45%: Appears euvolemic. Hypertension: Metoprolol as above. Dyslipidemia: Lipitor as above. Non-Hodgkins lymphoma CAD with CABG: ASA, Lipitor, Plavix, Metoprolol as above. Carotid stenosis with endarterectomy: ASA, Lipitor, Plavix, as above. Data and imaging reviewed: Morning labs reviewed. CBC showing leukocytosis with WBC count of 13.[address] able hemoglobin of 9.8. BMP showing mild hyponatremia with sodium of 131, elevated BUN of 30, creatinine of 1.38, GFR 48. Blood glucose was 140. Magnesium 1.9. Liver profile normal findings. Albumin was low at 2.8. Documented urinary output over the past 24 hours was 4275 cc Vital signs reviewed. Blood pressure blood pressure 121/69, heart rate 85, respiratory rate 19, and SpO2 of 92% on Airvo with FiO2 of 74 and flow rate of 55% Prognosis remains guarded. CODE STATUS: Full code DVT prophylaxis: SCDs Anticipated discharge date: Pending clinical course Anticipated discharge place: Pending clinical course Patient was seen independently by Nurse Pracitioner. This document was prepared using [employer] dictation software. Please allow for errors in hydraulic press tender, while rare they do occur. I reviewed the documentation as provided by the MICHELE above, who is the original author of this note. I agree with the documented assessment and plan, with the following changes: none Objective - Vital Signs Vital signs: Vital Signs Temp 98.1 F 07/02/24 07:48 Pulse 85 07/02/24 07:48 Resp 19 07/02/24 07:48 BP 121/69 07/02/24 07:48 Pulse Ox 92 L 07/02/24 07:48 FiO2 74 07/02/24 04:22 Intake & Output 07/01/24 07/02/24 07/02/24 18:59 06:59 18:59 Intake Total 477 Output Total 3500 775 950 Balance -3023 -775 -950 Intake: Oral 477 Output: Urine 3500 775 950 Uretheral (Rojas) 900 Other: Voiding Method Indwelling Catheter Indwelling Catheter Indwelling Catheter - Labs CBC & Chem 7: 07/05/24 07:07 07/05/24 07:07 Labs: Abnormal Lab Results - Last 24 Hours (Table) 07/01/24 07/01/24 07/01/24 Range/Units 07:46 09:17 12:02 WBC 15.8 H (3.8-10.6) k/uL RBC 3.15 L (4.30-5.90) m/uL Hgb 9.8 L (13.0-17.5) gm/dL Hct 28.0 L (39.0-53.0) % RDW 15.6 H (11.5-15.5) % Sodium 131 L (137-145) mmol/L BUN 28 H (9-20) mg/dL Glucose 122 H (74-99) mg/dL POC Glucose (mg/dL) 208 H (70-110) mg/dL Total Protein 4.8 L (6.3-8.2) g/dL Albumin 2.8 L (3.5-5.0) g/dL 07/01/24 Range/Units 16:48 WBC (3.8-10.6) k/uL RBC (4.30-5.90) m/uL Hgb (13.0-17.5) gm/dL Hct (39.0-53.0) % RDW (11.5-15.5) % Sodium (137-145) mmol/L BUN (9-20) mg/dL Glucose (74-99) mg/dL POC Glucose (mg/dL) 155 H (70-110) mg/dL Total Protein (6.3-8.2) g/dL Albumin (3.5-5.0) g/dL Microbiology - Last 24 Hours (Table) 06/27/24 14:27 Gram Stain - Final Sputum Sputum Culture - Final
--- NOTE | 2024-07-02 17:59 | P.PN ---
Subjective Progress Note Date: 07/02/24 Principal diagnosis: Reason for follow-up is pneumonia Patient is a 79-year-old male with a past medical history significant for non-Hodgkin lymphoma COPD hypertension hyperlipidemia heart failure recently diagnosed with a COVID-19 presented to hospital for evaluation of increasing shortness of breath and cough sputum production did have patient evaluated on the chest x-ray concerning for pneumonia. On today's evaluation that is 07/02/2024,the patient denies any fever or any chills, patient mentioned breathing slightly comfortably today currently has been on high flow nasal cannula oxygen, patient denies any chest pain continue have a cough and bring up some sputum no nausea no vomiting no abdominal pain or diarrhea. Patient white count is down to 13.6 creatinine is 1.3 8 repeat sputum culture has been negative Objective - Vital Signs Vital signs: Vital Signs Temp 98.3 F 07/02/24 10:54 Pulse 90 07/02/24 16:03 Resp 20 07/02/24 16:03 BP 127/65 07/02/24 10:54 Pulse Ox 95 07/02/24 15:55 FiO2 74 07/02/24 15:55 Intake & Output 07/01/24 07/02/24 07/02/24 18:59 06:59 18:59 Intake Total 477 Output Total 3500 775 950 Balance -3587 -448 -950 Intake: Oral 477 Output: Urine 3500 775 950 Uretheral (Rojas) 900 Other: Voiding Method Indwelling Catheter Indwelling Catheter Indwelling Catheter # Bowel Movements 1 - Exam GENERAL DESCRIPTION: An elderly male up in bed in no distress RESPIRATORY SYSTEM: Unlabored breathing , coarse breath sounds bilaterally HEART: S1 S2 regular rate and rhythm , ABDOMEN: Soft , no tenderness EXTREMITIES: No edema feet - Labs CBC & Chem 7: 07/02/24 09:40 07/02/24 09:40 Labs: Abnormal Lab Results - Last 24 Hours (Table) 07/02/24 07/02/24 07/02/24 Range/Units 09:40 09:40 12:12 WBC 13.6 H (3.8-10.6) k/uL RBC 3.20 L (4.30-5.90) m/uL Hgb 9.8 L (13.0-17.5) gm/dL Hct 29.1 L (39.0-53.0) % RDW 15.8 H (11.5-15.5) % Sodium 131 L (137-145) mmol/L BUN 30 H (9-20) mg/dL Creatinine 1.38 H (0.66-1.25) mg/dL Glucose 140 H (74-99) mg/dL POC Glucose (mg/dL) 207 H (70-110) mg/dL Total Protein 5.0 L (6.3-8.2) g/dL Albumin 2.8 L (3.5-5.0) g/dL 07/02/24 Range/Units 16:45 WBC (3.8-10.6) k/uL RBC (4.30-5.90) m/uL Hgb (13.0-17.5) gm/dL Hct (39.0-53.0) % RDW (11.5-15.5) % Sodium (137-145) mmol/L BUN (9-20) mg/dL Creatinine (0.66-1.25) mg/dL Glucose (74-99) mg/dL POC Glucose (mg/dL) 155 H (70-110) mg/dL Total Protein (6.3-8.2) g/dL Albumin (3.5-5.0) g/dL Assessment and Plan (1) Pneumonia Current Visit: Yes Status: Acute Code(s): J18.9 - PNEUMONIA, UNSPECIFIED ORGANISM SNOMED Code(s): 749728579 (2) Sepsis Current Visit: No Status: Acute Code(s): A41.9 - SEPSIS, UNSPECIFIED ORGANI SM SNOMED Code(s): 19751508 Plan: 1patient presented to hospital with sepsis in this patient who did have fever tachycardia mild hypotension source is likely pneumonia in this patient who recently did have a COVID-19 will need to cover for resistant gram negative to be the likely etiology and the patient recently grew Pseudomonas in his BAL culture 2-blood cultures are so far negative initial sputum has been negative, urine for Legionella antigen was negative mycoplasma IgM not elevated, repeat sputum is growing stenotrophomonas as well as Aspergillus and Eden 3 Aspergillus CF antibodies came back negative, and Aspergillus galactomannan is currently pending 4patient did have minimal clinical improvement and the patient white count is trending down CT chest did not show any significant consolidation for now we will continue with the Levaquin and monitor clinical course closely Dictation was produced using [employer] dictation software. please excuse any grammatical, word or spelling errors. Time with Patient: Less than 30
[2024-07-02 19:51] LABS: Glucose,Whole Blood 164 mg/dL (70-110)
[2024-07-03 06:39] LABS: HCT 27.4 % (39.0-53.0); HGB 8.9 gm/dL (13.0-17.5); MCH 29.9 pg (25.0-35.0); MCHC 32.6 g/dL (31.0-37.0); MCV 91.8 fL (80.0-100.0); Mean Platelet Volume 9.1; Platelet Count 166 k/uL (150-450); RBC 2.99 m/uL (4.30-5.90); RDW 15.1 % (11.5-15.5); WBC 12.6 k/uL (3.8-10.6)
[2024-07-03 06:49] LABS: ALT 42 U/L (4-49); AST 45 U/L (17-59); African American GFR (CKD) 61 (>60 ml/min/1.73 sqM); Albumin 2.6 g/dL (3.5-5.0); Alkaline Phosphatase 93 U/L (38-126); Anion Gap -1 mmol/L; Blood Urea Nitrogen 27 mg/dL (9-20); Calcium 8.3 mg/dL (8.4-10.2); Carbon Dioxide 29 mmol/L (22-30); Chloride 103 mmol/L (98-107); Glucose 115 mg/dL (74-99); Magnesium 1.8 mg/dL (1.6-2.3); Non-African American GFR(CKD) 53 (>60 ml/min/1.73 sqM); Potassium 4.9 mmol/L (3.5-5.1); Sodium 131 mmol/L (137-145); Total Bilirubin 0.6 mg/dL (0.2-1.3); Total Protein 4.7 g/dL (6.3-8.2)
[2024-07-03 07:11] LABS: Glucose,Whole Blood 115 mg/dL (70-110)
--- NOTE | 2024-07-03 11:43 | P.PN ---
Subjective Progress Note Date: 07/03/24 Hospital course: Patient is a very pleasant 79-year-old male with a past medical history of systolic CHF with EF 40 to 45%, COPD on 3L home O2, chronic kidney disease, hypertension, hyperlipidemia, non-Hodgkins lymphoma, CAD with CABG, AAA with stent, carotid stenosis with endarterectomy presents to the ED for shortness of breath. Apparently his O2 sat was in the 70s when EMS arrived on his 3L NC. Recently admitted from 06/05-06/07 for similar complaints, COVID + at that time, treated with bronchodilators, Zosyn, SoluMedrol and discharged on a Prednisone taper and to complete a course of Ciprofloxacin. He recently underwent bronchoscopy with BAL with Dr. Cano on 05/13 with cultures resulting in Pseudomonas and eden albicans. He was started on Ciprofloxacin at that time. He underwent repeat bronchoscopy with BAL with Dr. Cano on 06/03 which grew stenotrophomonas maltophilia. He was continued on Ciprofloxacin and according to the patient has been taking it over the past 5-6 weeks. In the ED he underwent extensive evaluation. Tmax 100F, BP 119/62, HR 102, RR 40, 91% on 3L. CBC, Coag panel, CMP significant for RBC 4, Hg 12.4, Hct 35.8, PT 9.9, bicarb 33, BUN 39, Cr 1.91, glu 131. Lactic acid 2.9. Troponin 0.054. EKG sinus tachycardia with RBBB. CXR showed COPD with patchy interstitial densities increased from previous CXRs. Patient is admitted for further workup and management. Patient seen by pulmonology and started on IV Zosyn and Bactrim. Patient also on IV steroids. Patient was on BiPAP. Patient weaned down to Airvo. Patient had another bronchoscopy done on 06/24/2024 that showed tracheobronchomalacia with copious thick secretions and mucous plugging. Sputum culture obtained at this time showing Aspergillus fumigatus, stenotrophomonas maltophilia, and Eden albicans. Patient currently on Bactrim 352 mg IVPB every 8 hours. Physical exam: Patient was seen and fully evaluated at bedside this morning. Patient again smiling this morning states his breathing is about the same as yesterday and may be even a touch better. He was visiting with his [id number] at bedside. Conversational dyspnea also was noted to be improved and patient states feeling able to actually have a conversation now. He denies any other complaints at this time. He remains on Airvo. Vital signs reviewed and stable. General: Nontoxic, no distress and appears stated age. Derm: Skin warm and dry, normal coloration for ethnicity. Head: Atraumatic, normocephalic and symmetric. Eyes: EOM's intact, no lid lag, and anicteric sclera Mouth: no lip lesions, mucus membranes moist Cardiovascular: regular rate and rhythm with normal S1S2, systolic murmur, positive posterior tibial pulses bilaterally, and cap refill < 2 seconds. Lungs: Respirations even, regular, and unlabored on Airvo. Lungs diminished with diffuse expiratory wheezes. No rhonchi or rails noted this morning. Abdominal: soft, nontender to palpation, no guarding, no appreciable organomegaly Ext: ROM intact. No gross muscle atrophy, no edema, no contractures Neuro: Speech clear, face symmetrical and CN II-XII grossly intact with no noted focal neuro deficits Psych: Alert and oriented to person, place, time, and situation. Appropriate and pleasant affect. Assessment and Plan of Care: Acute on chronic hypoxic respiratory failure, likely from COVID sequelae complicated by development of pseudomonas and stenotropomonas maltophilia pneumonia Sepsis upon admission, secondary to above Acute on chronic COPD exacerbation, secondary to above Generalized weakness and fatigue secondary to physical decomposition resulting from prolonged hospitalization -Patient in the last month had BAL cultures that were positive for Pseudomonas and stenotrophomonas maltophilia -Patient underwent 9-day course of IV antibiotics with Bactrim secondary to hyperkalemia, Bactrim was discontinued and patient was started on Levaquin 750 mg IVPB every 48 hours. -Continue with supplemental oxygen maintain SpO2 equal to or greater than 90%. Patient currently remains on Airvo. Wean O2 as tolerated -Sputum culture positive for aspergillus fumigatus, stenotrophomonas maltophilia, and Eden albicans. Repeat cultures from bronchoscopy 06/27/2024 negative showing no growth. -Infectious disease following, reviewed documentation in chart.. -Pulmonology following, took patient for bronchoscopy with BAL on 06/24/2024 which revealed tracheobronchomalacia with copious thick secretions and mucous plugging. Reviewed documentation in chart. -Continue with Symbicort 2 puffs INH BID. DuoNebs scheduled Q4H and as needed for wheezing/shortness of breath. Singulair 10 mg PO HS, and IV steroids with SoluMedrol 60 mg IV Q8H. -CT chest was completed showing small right pleural effusion and moderate to severe emphysema with right lower lobe 13 mm pulmonary nodule. -PT/OT following Pulmonary nodule, incidental finding on CT -Recommend outpatient close monitoring/surveillance with repeat CT in 3 months. Hyponatremia -Improving after administration of IV Lasix, will administer an additional dose of Lasix 40 mg IVP and continue monitor closely with repeat a.m. labs. Hyerkalemia -Hyperkalemia likely secondary to Bactrim. Patient received a single dose of Lokelma and IV Lasix and hyperkalemia has resolved. Infectious disease discontinuing Bactrim and starting patient on Levaquin instead. -Will continue to monitor closely with repeat a.m. labs. Elevated troponin -Troponins flat and ACS ruled out -Continue with ASA 81 mg PO QD. Lipitor 40 mg PO QHS. Plavix 75 mg PO QD. Metopr olol 25 mg PO QD. 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 BRITT resolved and renal function back at baseline with BUN of 25, creatinine 1.19, and GFR of 57. Lactic acidosis -Resolved Acute blood loss anemia -Patient's hemoglobin was trending down and subcu Lovenox for DVT prophylaxis was discontinued and orders placed for SCDs. -Today hemoglobin is 9.7 and stable -Patient at this time is too unstable for any endoscopic procedures Chronic conditions: Systolic CHF with EF 40-45%: Appears euvolemic. Hypertension: Metoprolol as above. Dyslipidemia: Lipitor as above. Non-Hodgkins lymphoma CAD with CABG: ASA, Lipitor, Plavix, Metoprolol as above. Carotid stenosis with endarterectomy: ASA, Lipitor, Plavix, as above. Data and imaging reviewed: Morning labs reviewed. CBC showing leukocytosis with WBC count of 12.6 and stable hemoglobin of 8.9. BMP showing mild hyponatremia with sodium of 131, elevated BUN of 27, creatinine of 1.27, GFR 53. Blood glucose was 115. Magnesium 1.8. Liver profile normal findings. Albumin was low at 2.6. Documented urinary output over the past 24 hours was 2225 cc Vital signs reviewed. Blood pressure blood pressure 133/63, heart rate 90, respiratory rate 25, temp 97.8 F, and SpO2 of 94% on Airvo with FiO2 of 70% at 55 L. Prognosis remains guarded. CODE STATUS: Full code DVT prophylaxis: SCDs Anticipated discharge date: Pending clinical course Anticipated discharge place: Pending clinical course Patient was seen independently by Nurse Pracitioner. This document was prepared using [employer] dictation software. Please allow for errors in document advisor, while rare they do occur. I reviewed the documentation as provided by the MICHELE above, who is the original author of this note. I agree with the documented assessment and plan, with the following changes: none Objective - Vital Signs Vital signs: Vital Signs Temp 97.9 F 07/03/24 06:57 Pulse 85 07/03/24 06:57 Resp 19 07/03/24 06:57 BP 131/66 07/03/24 06:57 Pulse Ox 91 L 07/03/24 06:57 FiO2 64 07/03/24 03:24 Intake & Output 07/02/24 07/03/24 07/03/24 18:59 06:59 18:59 Output Total 950 1275 Balance -950 -1275 Output: Urine 950 1275 Other: Voiding Method Indwelling Catheter Indwelling Catheter # Bowel Movements 1 - Labs CBC & Chem 7: 07/03/24 05:31 07/03/24 05:31 Labs: Abnormal Lab Results - Last 24 Hours (Table) 07/02/24 07/02/24 07/02/24 Range/Units 09:40 09:40 12:12 WBC 13.6 H (3.8-10.6) k/uL RBC 3.20 L (4.30-5.90) m/uL Hgb 9.8 L (13.0-17.5) gm/dL Hct 29.1 L (39.0-53.0) % RDW 15.8 H (11.5-15.5) % Sodium 131 L (137-145) mmol/L BUN 30 H (9-20) mg/dL Creatinine 1.38 H (0.66-1.25) mg/dL Glucose 140 H (74-99) mg/dL POC Glucose (mg/dL) 207 H (70-110) mg/dL Calcium (8.4-10.2) mg/dL Total Protein 5.0 L (6.3-8.2) g/dL Albumin 2.8 L (3.5-5.0) g/dL 07/02/24 07/02/24 07/03/24 Range/Units 16:45 19:49 05:31 WBC 12.6 H (3.8-10.6) k/uL RBC 2.99 L (4.30-5.90) m/uL Hgb 8.9 L (13.0-17.5) gm/dL Hct 27.4 L (39.0-53.0) % RDW (11.5-15.5) % Sodium (137-145) mmol/L BUN (9-20) mg/dL Creatinine (0.66-1.25) mg/dL Glucose (74-99) mg/dL POC Glucose (mg/dL) 155 H 164 H (70-110) mg/dL Calcium (8.4-10.2) mg/dL Total Protein (6.3-8.2) g/dL Albumin (3.5-5.0) g/dL 07/03/24 07/03/24 Range/Units 05:31 07:09 WBC (3.8-10.6) k/uL RBC (4.30-5.90) m/uL Hgb (13.0-17.5) gm/dL Hct (39.0-53.0) % RDW (11.5-15.5) % Sodium 131 L (137-145) mmol/L BUN 27 H (9-20) mg/dL Creatinine 1.27 H (0.66-1.25) mg/dL Glucose 115 H (74-99) mg/dL POC Glucose (mg/dL) 115 H (70-110) mg/dL Calcium 8.3 L (8.4-10.2) mg/dL Total Protein 4.7 L (6.3-8.2) g/dL Albumin 2.6 L (3.5-5.0) g/dL
[2024-07-03 12:11] LABS: Glucose,Whole Blood 199 mg/dL (70-110)
--- NOTE | 2024-07-03 14:24 | P.PN ---
Subjective Progress Note Date: 07/03/24 Principal diagnosis: Acute hypoxic respiratory failure secondary to gram-negative pneumonia and stenotrophomonas infection On 06/22/2024, the patient is being seen for a follow-up. This morning, the patient is on a BiPAP pressure of 16 over 5 cm of water with FiO2 of 60% and the patient is on a lactated Ringer at rate of 50 cc an hour. Chest x-ray was done this morning and it showed patchy infiltrates in lung bases more so on the right consistent with pneumonia. Most recent bronchoscopy yielded stenotrophomonas and the patient has grown Pseudomonas in the past. The patient is currently on IV Zosyn. He remains on DuoNeb nebulized treatments [id number]. He is on Symbicort. He is on IV Solu-Medrol. He is awake and alert and communicating. The white cell count is at 7 with hemoglobin of 10 and platelet count of 189. BUN is 27 with a creatinine of 1.36 and a sodium levels at 138. He is weak and quite debilitated on a chronic basis. Bactrim will be also added to his regimen. On 06/23/2024, the patient is still on Airvo at 35 L with an FiO2 of 50% with a pulse ox of 96%. Feels somewhat improved compared to yesterday. Continues to have a congested cough with limited amount of sputum production. Antibiotic modification was done yesterday and the patient is currently on a combination of Zosyn and IV Bactrim. Renal function remained stable. On today's blood work, the creatinine is at 1.24 with a BUN of 23. Rest of the electrolytes are all s table and within normal limits. White cell count of 5.3 with a hemoglobin of 9. A repeat chest x-ray from today shows some bibasilar pulmonary filtrates slightly worse on the left along with background COPD. Remains on bronchodilators. Remains on steroids. Remains on lactated Ringer at 50 cc an hour. Remains on Symbicort and DuoNeb updrafts [id number]. Home medications have been also resumed. 06/24/2024, the patient remains on Airvo 35 L with an FiO2 of 55%. The patient continues to have respiratory difficulties, cough, congestion, unable to bring up much of sputum. No significant improvement in respiratory status over the past 24 hours. The patient remains on a combination of IV Bactrim and IV Zosyn. The white cell count is at 8.1. Hemoglobin is 8.6 and a platelet count of 142. BUN is 25 with a creatinine of 1.22. He is getting progressively more debilitated and weak. Spending most of the time in bed. Oral intake is diminished and the patient had minimal amount of old. Earlier this morning. I plan to do a bronchoscopy on this patient in the afternoon to further optimize her respiratory status. Suspect mucous plugs. 06/25/2024, the patient is post bronchoscopy. The patient remains on Airvo 35 L with an FiO2 of 55%. Continues to struggle with his breathing. Cough and congestion is improved compared to yesterday post bronchoscopy. Repeat bronchoalveolar lavage was done and results are still pending. Most recent sputum sample is showing Eden, Aspergillus and stenotrophomonas. The patient remains on Bactrim IV. Remains on IV Solu-Medrol. Remains on DuoNeb nebulized treatments [id number]. The white cell count of 7.4 with a hemoglobin 9.5 and a platelet count of 197. Sodium is at 136, BUN 25 with a creatinine of 1.1. ID is on the case. No other new complaints otherwise for now. 06/26/2024, patient is being seen for a follow-up. The patient is sitting up in a chair. Awaiting the results from the bronchoscopy and bronchial lavage. Most recent sputum analysis was positive for stenotrophomonas in addition to Aspergillus and candidal elements. Earlier this morning, the patient was on Airvo. He was at 35 L with an FiO2 of 55%. I took him off the Airvo and I put him on 60 days of oxygen by nasal cannula and his current pulse ox 94%. He remains bronchospastic and wheezy. Awaiting consistent 0.8 edema 9.5 and a plat elet count of 199. BUN is 25 with a creatinine of 1.09 and sodium levels at 135. Communicating. Awake. No chest pain. No other new complaints since yesterday. Awaiting results of the bronchial lavage and the patient remains on IV Bactrim. In terms of his renal function, the patient's creatinine is stable at 1.09. 06/27/2024, the patient continues to have labored breathing. After being on nasal cannula for yesterday, this patient became more short of breath this morning. Based on that, the patient was placed again on Airvo and the patient is currently on 50 L with FiO2 of 60%. Pulse ox in the order of 94 to 95%. He remains on IV Bactrim. Continues to encounter cough and congestion. Unable to bring up much of sputum. No chest pain. Looks quite lethargic and weak. His white cell count today is at 10.2 with a hemoglobin 9.9. BUN is 23 with a creatinine of 1.1. Rest of the medication remains unchanged. Remains on IV Solu-Medrol. Remains on DuoNeb nebulized treatments [id number]. Symbicort will be discontinued and the patient was placed on a combination of Perforomist and Pulmicort. Oral intake remains quite diminished. 06/28/2024, the patient continues to struggle with his breathing. He remains on Airvo and is alternating it with a BiPAP. I am going to switch to BiPAP at a pressure of 10 over 5 cm of water and FiO2 of 50%. Meanwhile, this morning, he remains on Airvo and is currently on 50 L with an FiO2 of 60%. Congested cough. Remains bronchospastic and wheezy. Remains weak and debilitated. Oral intake remains quite diminished. Repeat arthroscopy and lavage yielded no microbial growth and the most recent cultures came back negative. Meanwhile, based on the earlier cultures of stenotrophomonas, the patient remains on Bactrim. Creatini ne is stable at 1.2. Responded adequately to Lasix and the patient produced approximately 2.8 L of negative fluid balance over the past 24 hours. Potassium is at 4.8. WBC count is at 8.4 with hemoglobin 8.6. Chest x-ray findings are essentially unchanged and the patient has stable lower lobe pulmonary filtrates which are essentially unchanged. Seen today on 06/29/2024, patient is feeling better today, breathing easier. However he remains on Airvo with FiO2 of 60% and flow of 55 L/min. Patient is on antibiotics for his pneumonia and positive multi microbial cultures from his sputum and his BAL. This is being addressed accordingly, however the main organism seems to be Stenotrophomonas maltophilia WBC count is 9.8 hemoglobin is 9 basic metabolic profile is normal BUN is 24 creatinine 1.23. This x-ray from yesterday continues show bilateral extensive infiltrates specially at the bases of his right lung and left lung/lingula Patient was evaluated today on 06/30/2024, patient is basically about the same, continues to have cough, shortness of breath, significant amount of secretions, on 8 L high flow nasal cannula, patient is developing worsening electrolytes imbalance, renal functioning is not changing much creatinine 1.19, however his potassium is 5.8 sodium is 129 WBC 16.1. Chest x-ray continues to show significant airspace disease involving the left lower lobe and lingula as well as the right lower lobe, infectious disease is concerned about Bactrim with hyperkalemia, and recommending IV Levaquin instead. Patient was seen today on 07/01/2024, patient feels worse today, he is on Airvo at 70% FiO2 and 55 L flow, continues to have intermittent cough wheezing shortn ess of breath, cough is productive. His antibiotics were changed yesterday from Bactrim to Levaquin, being followed by infectious disease. 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 Basic metabolic profile is better potassium is down to 5.1 BUN is 28 creatinine 1.25. Family is at bedside, and I discussed his pulmonary status with the family Reevaluate today on 07/02/2024, patient is feeling a bit better today compared to yesterday. Breathing easier, CT of the chest was reviewed patient has significant COPD/emphysema and bilateral airspace disease patient remains on Levaquin, bronchodilators, and steroids, patient is also receiving multiple bronchodilators, some improvement but not back to baseline. Still requiring Airvo with high flow and high FiO2. WBC count today is 13.6 hemoglobin 9.8 basic metabolic profile is normal BUN is 30 creatinine 1.38 Patient was seen today on 07/03/2024, continues to steadily improve, however he remains on Airvo, 40 L flow and 60% FiO2 O2 saturation 96%. Less cough less wheezing less shortness of breath, he seems more comfortable today than he felt in the last few days. WBC count is 12.6 hemoglobin 8.9 basic metabolic profile is normal BUN is 27 creatinine 1.27, better today compared to yesterday. Pat ient remains on Levaquin Objective - Vital Signs Vital signs: Vital Signs Temp 97.8 F 07/03/24 10:56 Pulse 85 07/03/24 11:36 Resp 18 07/03/24 11:36 BP 133/63 07/03/24 10:56 Pulse Ox 96 07/03/24 11:28 FiO2 60 07/03/24 11:28 Intake & Output 07/02/24 07/03/24 07/03/24 18:59 06:59 18:59 Output Total 950 1275 680 Balance -788 -1275 -055 Output: Urine 950 1275 680 Other: Voiding Method Indwelling Catheter Indwelling Catheter Indwelling Catheter # Bowel Movements 1 - Exam General: Revealed 79-year-old white male on Airvo HEENT examination is grossly unremarkable. Mucous membranes are moist. No oral lesions. Neck supple. Full range of motion. No adenopathy thyromegaly or neck vein distention. Cardiovascular examination reveals regular rhythm rate. S1-S2 normal. No S3 or S4. No discernible murmur noted. Heart sounds are distant. Lungs reveal normal crackles at the bases no rhonchi no wheezes Abdomen soft and without bowel sounds. No masses or tenderness. Extremities are intact. No cyanosis clubbing or edema. Skin is without rash or lesion. Neurologic alert oriented x 3 no gross focal deficit Theatric: Normal mood affect and normal mental status examination - Labs CBC & Chem 7: 07/03/24 05:31 07/03/24 05:31 Labs: Abnormal Lab Results - Last 24 Hours (Table) 07/02/24 07/02/24 07/03/24 Range/Units 16:45 19:49 05:31 WBC 12.6 H (3.8-10.6) k/uL RBC 2.99 L (4.30-5.90) m/uL Hgb 8.9 L (13.0-17.5) gm/dL Hct 27.4 L (39.0-53.0) % Sodium (137-145) mmol/L BUN (9-20) mg/dL Creatinine (0.66-1.25) mg/dL Glucose (74-99) mg/dL POC Glucose (mg/dL) 155 H 164 H (70-110) mg/dL Calcium (8.4-10.2) mg/dL Total Protein (6.3-8.2) g/dL Albumin (3.5-5.0) g/dL 07/03/24 07/03/24 07/03/24 Range/Units 05:31 07:09 12:10 WBC (3.8-10.6) k/uL RBC (4.30-5.90) m/uL Hgb (13.0-17.5) gm/dL Hct (39.0-53.0) % Sodium 131 L (137-145) mmol/L BUN 27 H (9-20) mg/dL Creatinine 1.27 H (0.66-1.25) mg/dL Glucose 115 H (74-99) mg/dL POC Glucose (mg/dL) 115 H 199 H (70-110) mg/dL Calcium 8.3 L (8.4-10.2) mg/dL Total Protein 4.7 L (6.3-8.2) g/dL Albumin 2.6 L (3.5-5.0) g/dL Assessment and Plan Assessment: Impression: Acute hypoxic respiratory failure, secondary to pneumonia/multimicrobial Recurrent respiratory tract infection/pneumonia and the patient continues to lower lobe consolidation previous culture showing gram-negative bacterial inf ection including stenotrophomonas. Suspect ongoing mucous plugging, leading to shortness of breath Recent hospitalization for a COPD exacerbation and a COVID-19 infection, Acute COPD exacerbation secondary to above Previous hospitalization for a pseudomonal tracheobronchitis/pneumonia Oxygen dependent chronic obstructive pulmonary disease with an FEV1 value 39% of predicted Chronic tobacco dependence of greater than 60 years Right upper lobe PET avid pulmonary nodule which is being monitored on outpatient basis, measuring up to 1.4 cm in size, enlarging in size and the patient will need an SBRT at a later stage on outpatient basis. History of non-Hodgkin's lymphoma Chronic stage III kidney disease Coronary disease with previous coronary artery bypass surgery in 2001 History of abdominal aortic aneurysm status post stent placement in March 2022 Carotid stenosis status post endarterectomy History of ESBL E. coli and bronchial wash in 2021 Hyperlipidemia Hypertension Recommendation: Continue Levaquin Continue Airvo and titrate accordingly Use BiPAP as needed Continue aggressive pulmonary toileting Continue to closely monitor renal profile, and electrolytes Continue bronchodilators and IV Solu-Medrol CT of the chest was reviewed and discussed the findings with the patient he does have a nodule that needs to be followed up on outpatient basis Continue diuretics Will continue to follow Prognosis is relatively guarded. Time with Patient: Less than 30
[2024-07-03 17:04] LABS: Glucose,Whole Blood 168 mg/dL (70-110)
[2024-07-03 20:36] LABS: Glucose,Whole Blood 160 mg/dL (70-110)
[2024-07-04 06:11] LABS: Glucose,Whole Blood 177 mg/dL (70-110)
[2024-07-04 06:51] LABS: HCT 29.6 % (39.0-53.0); HGB 9.6 gm/dL (13.0-17.5); MCHC 32.3 g/dL (31.0-37.0); Mean Platelet Volume 8.9; Platelet Count 154 k/uL (150-450); RBC 3.19 m/uL (4.30-5.90); RDW 15.3 % (11.5-15.5); WBC 14.6 k/uL (3.8-10.6)
[2024-07-04 06:57] LABS: ALT 38 U/L (4-49); AST 39 U/L (17-59); African American GFR (CKD) 76 (>60 ml/min/1.73 sqM); Albumin 2.7 g/dL (3.5-5.0); Alkaline Phosphatase 101 U/L (38-126); Anion Gap 0 mmol/L; Blood Urea Nitrogen 31 mg/dL (9-20); Calcium 8.4 mg/dL (8.4-10.2); Carbon Dioxide 29 mmol/L (22-30); Chloride 103 mmol/L (98-107); Glucose 162 mg/dL (74-99); Magnesium 1.7 mg/dL (1.6-2.3); Non-African American GFR(CKD) 66 (>60 ml/min/1.73 sqM); Potassium 5.1 mmol/L (3.5-5.1); Sodium 132 mmol/L (137-145); Total Bilirubin 0.7 mg/dL (0.2-1.3); Total Protein 4.8 g/dL (6.3-8.2)
[2024-07-04] MEDS: MAGNESIUM SULFATE-D5W PMX 1 GM in DEXTROSE/WATER 1 100ML.BAG IVPB SCH (08:21)
--- NOTE | 2024-07-04 09:46 | P.PN ---
Subjective Progress Note Date: 07/03/24 Principal diagnosis: Reason for follow-up is pneumonia Patient is a 79-year-old male with a past medical history significant for non-Hodgkin lymphoma COPD hypertension hyperlipidemia heart failure recently diagnosed with a COVID-19 presented to hospital for evaluation of increasing shortness of breath and cough sputum production did have patient evaluated on the chest x-ray concerning for pneumonia. On today's evaluation that is 07/03/2024,the patient remains to be afebrile, patient is on high flow nasal cannula oxygen with 65% FiO2 however mention breathing slightly comfortably he also have a cough and is bringing up some sputum no hemoptysis no nausea vomiting no abdominal pain and no diarrhea. Patient white count is down to 12.6, creatinine is 1.27 potassium is 4.9 Objective - Vital Signs Vital signs: Vital Signs Temp 97.8 F 07/03/24 10:56 Pulse 85 07/03/24 11:36 Resp 18 07/03/24 11:36 BP 133/63 07/03/24 10:56 Pulse Ox 96 07/03/24 11:28 FiO2 60 07/03/24 11:28 Intake & Output 07/02/24 07/03/24 07/03/24 18:59 06:59 18:59 Output Total 950 1275 680 Balance -147 -0475 -680 Output: Urine 950 1275 680 Other: Voiding Method Indwelling Catheter Indwelling Catheter Indwelling Catheter # Bowel Movements 1 - Exam GENERAL DESCRIPTION: An elderly male up in bed in no distress RESPIRATORY SYSTEM: Unlabored breathing , coarse breath sounds bilaterally HEART: S1 S2 regular rate and rhythm , ABDOMEN: Soft , no tenderness EXTREMITIES: No edema feet - Labs CBC & Chem 7: 07/04/24 06:16 07/04/24 06:16 Labs: Abnormal Lab Results - Last 24 Hours (Table) 07/02/24 07/02/24 07/03/24 Range/Units 16:45 19:49 05:31 WBC 12.6 H (3.8-10.6) k/uL RBC 2.99 L (4.30-5.90) m/uL Hgb 8.9 L (13.0-17.5) gm/dL Hct 27.4 L (39.0-53.0) % Sodium (137-145) mmol/L BUN (9-20) mg/dL Creatinine (0.66-1.25) mg/dL Glucose (74-99) mg/dL POC Glucose (mg/dL) 155 H 164 H (70-110) mg/dL Calcium (8.4-10.2) mg/dL Total Protein (6.3-8.2) g/dL Albumin (3.5-5.0) g/dL 07/03/24 07/03/24 07/03/24 Range/Units 05:31 07:09 12:10 WBC (3.8-10.6) k/uL RBC (4.30-5.90) m/uL Hgb (13.0-17.5) gm/dL Hct (39.0-53.0) % Sodium 131 L (137-145) mmol/L BUN 27 H (9-20) mg/dL Creatinine 1.27 H (0.66-1.25) mg/dL Glucose 115 H (74-99) mg/dL POC Glucose (mg/dL) 115 H 199 H (70-110) mg/dL Calcium 8.3 L (8.4-10.2) mg/dL Total Protein 4.7 L (6.3-8.2) g/dL Albumin 2.6 L (3.5-5.0) g/dL Assessment and Plan (1) Pneumonia Current Visit: Yes Status: Acute Code(s): J18.9 - PNEUMONIA, UNSPECIFIED ORGANISM SNOMED Code(s): 377069130 (2) Sepsis Current Visit: No Status: Acute Code(s): A41.9 - SEPSIS, UNSPECIFIED ORGANISM SNOMED Code(s): 52200293 Plan: 1patient presented to hospital with sepsis in this patient who did have fever tachycardia mild hypotension source is likely pneumonia in this patient who recently did have a COVID-19 will need to cover for resistant gram negative to be the likely etiology and the patient recently grew Pseudomonas in his BAL culture 2-blood cultures are so far negative initial sputum has been negative, urine for Legionella antigen was negative mycoplasma IgM not elevated, repeat sputum is growing stenotrophomonas as well as Aspergillus and Eden 3 Aspergillus CF antibodies came back negative, and Aspergillus galactomannan is currently pending 4patient remains to be afebrile and the patient white count is trending down CT chest did not show any significant consolidation and the patient is showing some clinical improvement continue with the Levaquin can be transition to p.o. on discharge for a short course Dictation was produced using [employer] dictation software. please excuse any grammatical, word or spelling errors. Time with Patient: Less than 30
--- NOTE | 2024-07-04 11:23 | P.PN ---
Subjective Progress Note Date: 07/04/24 Hospital course: Patient is a very pleasant 79-year-old male with a past medical history of systolic CHF with EF 40 to 45%, COPD on 3L home O2, chronic kidney disease, hypertension, hyperlipidemia, non-Hodgkins lymphoma, CAD with CABG, AAA with stent, carotid stenosis with endarterectomy presents to the ED for shortness of breath. Apparently his O2 sat was in the 70s when EMS arrived on his 3L NC. Recently admitted from 06/05-06/07 for similar complaints, COVID + at that time, treated with bronchodilators, Zosyn, SoluMedrol and discharged on a Prednisone taper and to complete a course of Ciprofloxacin. He recently underwent bronchoscopy with BAL with Dr. Cano on 05/13 with cultures resulting in Pseudomonas and eden albicans. He was started on Ciprofloxacin at that time. He underwent repeat bronchoscopy with BAL with Dr. Cano on 06/03 which grew stenotrophomonas maltophilia. He was continued on Ciprofloxacin and according to the patient has been taking it over the past 5-6 weeks. In the ED he underwent extensive evaluation. Tmax 100F, BP 119/62, HR 102, RR 40, 91% on 3L. CBC, Coag panel, CMP significant for RBC 4, Hg 12.4, Hct 35.8, PT 9.9, bicarb 33, BUN 39, Cr 1.91, glu 131. Lactic acid 2.9. Troponin 0.054. EKG sinus tachycardia with RBBB. CXR showed COPD with patchy interstitial densities increased from previous CXRs. Patient is admitted for further workup and management. Patient seen by pulmonology and started on IV Zosyn and Bactrim. Patient also on IV steroids. Patient was on BiPAP. Patient weaned down to Airvo. Patient had another bronchoscopy done on 06/24/2024 that showed tracheobronchomalacia with copious thick secretions and mucous plugging. Sputum culture obtained at this time showing Aspergillus fumigatus, stenotrophomonas maltophilia, and Eden albicans. Patient currently on Bactrim 352 mg IVPB every 8 hours. Physical exam: Patient was seen and fully evaluated at bedside this morning. Patient reports again feeling a bit better today, day 3 of improvement. Patient states he has been coughing up more thick secretions. He remains on Airvo. He reports he is eating better and more able to chew and swallow his food now that he is "no longer starving for air". Patient requested diet be advanced from pured to chopped and orders to be placed. Patient visiting with his son at bedside and currently denies having any questions, needs, concerns, or complaints. Vital signs reviewed and stable. General: Nontoxic, no distress and appears stated age. Derm: Skin warm and dry, normal coloration for ethnicity. Head: Atraumatic, normocephalic and symmetric. Eyes: EOM's intact, no lid lag, and anicteric sclera Mouth: no lip lesions, mucus membranes moist Cardiovascular: regular rate and rhythm with normal S1S2, systolic murmur, positive posterior tibial pulses bilaterally, and cap refill < 2 seconds. Lungs: Respirations even, regular, and unlabored on Airvo. Lungs diminished with diffuse expiratory wheezes. No rhonchi or rails noted this morning. Abdominal: soft, nontender to palpation, no guarding, no appreciable organomegaly Ext: ROM intact. No gross muscle atrophy, no edema, no contractures Neuro: Speech clear, face symmetrical and CN II-XII grossly intact with no noted focal neuro deficits Psych: Alert and oriented to person, place, time, and situation. Appropriate and pleasant affect. Assessment and Plan of Care: Acute on chronic hypoxic respiratory failure, likely from COVID sequelae complicated by development of pseudomonas and stenotropomonas maltophilia pn eumonia Sepsis upon admission, secondary to above Acute on chronic COPD exacerbation, secondary to above Generalized weakness and fatigue secondary to physical decomposition resulting from prolonged hospitalization -Patient in the last month had BAL cultures that were positive for Pseudomonas and stenotrophomonas maltophilia -Patient underwent 9-day course of IV antibiotics with Bactrim secondary to hyperkalemia, Bactrim was discontinued and on 06/30/24 patient was started on Levaquin 750 mg IVPB every 48 hours. -Continue with supplemental oxygen maintain SpO2 equal to or greater than 90%. Patient currently remains on Airvo. Wean O2 as tolerated -Sputum culture positive for aspergillus fumigatus, stenotrophomonas maltophilia, and Eden albicans. Repeat cultures from bronchoscopy 06/27/2024 negative showing no growth. -Infectious disease following, reviewed documentation in chart.. -Pulmonology following, took patient for bronchoscopy with BAL on 06/24/2024 which revealed tracheobronchomalacia with copious thick secretions and mucous plugging. Reviewed documentation in chart. -Continue with Symbicort 2 puffs INH BID. DuoNebs scheduled Q4H and as needed for wheezing/shortness of breath. Singulair 10 mg PO HS, and IV steroids with SoluMedrol 60 mg IV Q8H. -CT chest was completed showing small right pleural effusion and moderate to severe emphysema with right lower lobe 13 mm pulmonary nodule. -PT/OT following Pulmonary nodule, incidental finding on CT -Recommend outpatient close monitoring/surveillance with repeat CT in 3 months. Hyponatremia -Improving after administration of IV Lasix, will administer an additional dose of Lasix 40 mg IVP and continue monitor closely with repeat a.m. labs. Hyerkalemia -Hyperkalemia likely secondary to Bactrim. Patient received a single dose of Lokelma and IV Lasix and hyperkalemia has resolved. Infectious disease discontinuing Bactrim and starting patient on Levaquin instead. -Will continue to monitor closely with repeat a.m. labs. Elevated troponin -Troponins flat and ACS ruled out -Continue with ASA 81 mg PO QD. Lipitor 40 mg PO QHS. Plavix 75 mg PO QD. Metoprolol 25 mg PO QD. 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 BRITT resolved and renal function back at baseline with BUN of 25, creatinine 1.19, and GFR of 57. Lactic acidosis -Resolved Acute blood loss anemia -Patient's hemoglobin was trending down and subcu Lovenox for DVT prophylaxis was discontinued and orders placed for SCDs. -Today hemoglobin is 9.7 and stable -Patient at this time is too unstable for any endoscopic procedures Chronic conditions: Systolic CHF with EF 40-45%: Appears euvolemic. Hypertension: Metoprolol as above. Dyslipidemia: Lipitor as above. Non-Hodgkins lymphoma CAD with CABG: ASA, Lipitor, Plavix, Metoprolol as above. Carotid stenosis with endarterectomy: ASA, Lipitor, Plavix, as above. Data and imaging reviewed: Morning labs reviewed. CBC showing leukocytosis with WBC count of 14.6 and stable hemoglobin of 9.6. BMP showing mild hyponatremia with sodium of 132, elevated BUN of 31, creatinine of 1.27, GFR 66. Blood glucose was 162. Magnesium 1.7. Liver profile normal findings. Albumin was low at 2.7. Documented urinary output over the past 24 hours was 2280 cc Vital signs reviewed. Blood pressure blood pressure 137/74, heart rate 86, respiratory rate 20, temp 97.9 F, and SpO2 of 95% on Airvo with 55% FiO2 and 40 L.. Prognosis remains guarded. CODE STATUS: Full code DVT prophylaxis: SCDs Anticipated discharge date: Pending clinical course Anticipated discharge place: Pending clinical course Patient was seen independently by Nurse Pracitioner. This document was prepared using [employer] dictation software. Please allow for errors in electric motor assembler, while rare they do occur. I reviewed the documentation as provided by the MICHELE above, who is the original author of this note. I agree with the documented assessment and plan, with the following changes: none Objective - Vital Signs Vital signs: Vital Signs Temp 98 F 07/04/24 04:00 Pulse 81 07/04/24 04:00 Resp 18 07/04/24 04:00 BP 139/76 07/04/24 04:00 Pulse Ox 95 07/04/24 04:00 FiO2 65 07/04/24 03:01 Intake & Output 07/03/24 07/04/24 07/04/24 18:59 06:59 18:59 Intake Total 477 Output Total 680 1600 Balance -203 -1600 Weight 46.5 kg Intake: Oral 477 Output: Urine 680 1600 Other: Voiding Method Indwelling Catheter Indwelling Catheter - Labs CBC & Chem 7: 07/04/24 06:16 07/04/24 06:16 Labs: Abnormal Lab Results - Last 24 Hours (Table) 07/03/24 07/03/24 07/03/24 Range/Units 12:10 17:02 20:35 WBC (3.8-10.6) k/uL RBC (4.30-5.90) m/uL Hgb (13.0-17.5) gm/dL Hct (39.0-53.0) % Sodium (137-145) mmol/L BUN (9-20) mg/dL Glucose (74-99) mg/dL POC Glucose (mg/dL) 199 H 168 H 160 H (70-110) mg/dL Total Protein (6.3-8.2) g/dL Albumin (3.5-5.0) g/dL 07/04/24 07/04/24 07/04/24 Range/Units 06:09 06:16 06:16 WBC 14.6 H (3.8-10.6) k/uL RBC 3.19 L (4.30-5.90) m/uL Hgb 9.6 L (13.0-17.5) gm/dL Hct 29.6 L (39.0-53.0) % Sodium 132 L (137-145) mmol/L BUN 31 H (9-20) mg/dL Glucose 162 H (74-99) mg/dL POC Glucose (mg/dL) 177 H (70-110) mg/dL Total Protein 4.8 L (6.3-8.2) g/dL Albumin 2.7 L (3.5-5.0) g/dL Microbiology - Last 24 Hours (Table) 06/18/24 15:53 Legionella Culture - Final Sputum
[2024-07-04 11:52] LABS: Glucose,Whole Blood 308 mg/dL (70-110)
--- NOTE | 2024-07-04 13:13 | P.PN ---
Subjective Progress Note Date: 07/04/24 Principal diagnosis: Acute hypoxic respiratory failure secondary to gram-negative pneumonia and stenotrophomonas infection On 06/22/2024, the patient is being seen for a follow-up. This morning, the patient is on a BiPAP pressure of 16 over 5 cm of water with FiO2 of 60% and the patient is on a lactated Ringer at rate of 50 cc an hour. Chest x-ray was done this morning and it showed patchy infiltrates in lung bases more so on the right consistent with pneumonia. Most recent bronchoscopy yielded stenotrophomonas and the patient has grown Pseudomonas in the past. The patient is currently on IV Zosyn. He remains on DuoNeb nebulized treatments [id number]. He is on Symbicort. He is on IV Solu-Medrol. He is awake and alert and communicating. The white cell count is at 7 with hemoglobin of 10 and platelet count of 189. BUN is 27 with a creatinine of 1.36 and a sodium levels at 138. He is weak and quite debilitated on a chronic basis. Bactrim will be also added to his regimen. On 06/23/2024, the patient is still on Airvo at 35 L with an FiO2 of 50% with a pulse ox of 96%. Feels somewhat improved compared to yesterday. Continues to have a congested cough with limited amount of sputum production. Antibiotic modification was done yesterday and the patient is currently on a combination of Zosyn and IV Bactrim. Renal function remained stable. On today's blood work, the creatinine is at 1.24 with a BUN of 23. Rest of the electrolytes are all s table and within normal limits. White cell count of 5.3 with a hemoglobin of 9. A repeat chest x-ray from today shows some bibasilar pulmonary filtrates slightly worse on the left along with background COPD. Remains on bronchodilators. Remains on steroids. Remains on lactated Ringer at 50 cc an hour. Remains on Symbicort and DuoNeb updrafts [id number]. Home medications have been also resumed. 06/24/2024, the patient remains on Airvo 35 L with an FiO2 of 55%. The patient continues to have respiratory difficulties, cough, congestion, unable to bring up much of sputum. No significant improvement in respiratory status over the past 24 hours. The patient remains on a combination of IV Bactrim and IV Zosyn. The white cell count is at 8.1. Hemoglobin is 8.6 and a platelet count of 142. BUN is 25 with a creatinine of 1.22. He is getting progressively more debilitated and weak. Spending most of the time in bed. Oral intake is diminished and the patient had minimal amount of old. Earlier this morning. I plan to do a bronchoscopy on this patient in the afternoon to further optimize her respiratory status. Suspect mucous plugs. 06/25/2024, the patient is post bronchoscopy. The patient remains on Airvo 35 L with an FiO2 of 55%. Continues to struggle with his breathing. Cough and congestion is improved compared to yesterday post bronchoscopy. Repeat bronchoalveolar lavage was done and results are still pending. Most recent sputum sample is showing Eden, Aspergillus and stenotrophomonas. The patient remains on Bactrim IV. Remains on IV Solu-Medrol. Remains on DuoNeb nebulized treatments [id number]. The white cell count of 7.4 with a hemoglobin 9.5 and a platelet count of 197. Sodium is at 136, BUN 25 with a creatinine of 1.1. ID is on the case. No other new complaints otherwise for now. 06/26/2024, patient is being seen for a follow-up. The patient is sitting up in a chair. Awaiting the results from the bronchoscopy and bronchial lavage. Most recent sputum analysis was positive for stenotrophomonas in addition to Aspergillus and candidal elements. Earlier this morning, the patient was on Airvo. He was at 35 L with an FiO2 of 55%. I took him off the Airvo and I put him on 60 days of oxygen by nasal cannula and his current pulse ox 94%. He remains bronchospastic and wheezy. Awaiting consistent 0.8 edema 9.5 and a plat elet count of 199. BUN is 25 with a creatinine of 1.09 and sodium levels at 135. Communicating. Awake. No chest pain. No other new complaints since yesterday. Awaiting results of the bronchial lavage and the patient remains on IV Bactrim. In terms of his renal function, the patient's creatinine is stable at 1.09. 06/27/2024, the patient continues to have labored breathing. After being on nasal cannula for yesterday, this patient became more short of breath this morning. Based on that, the patient was placed again on Airvo and the patient is currently on 50 L with FiO2 of 60%. Pulse ox in the order of 94 to 95%. He remains on IV Bactrim. Continues to encounter cough and congestion. Unable to bring up much of sputum. No chest pain. Looks quite lethargic and weak. His white cell count today is at 10.2 with a hemoglobin 9.9. BUN is 23 with a creatinine of 1.1. Rest of the medication remains unchanged. Remains on IV Solu-Medrol. Remains on DuoNeb nebulized treatments [id number]. Symbicort will be discontinued and the patient was placed on a combination of Perforomist and Pulmicort. Oral intake remains quite diminished. 06/28/2024, the patient continues to struggle with his breathing. He remains on Airvo and is alternating it with a BiPAP. I am going to switch to BiPAP at a pressure of 10 over 5 cm of water and FiO2 of 50%. Meanwhile, this morning, he remains on Airvo and is currently on 50 L with an FiO2 of 60%. Congested cough. Remains bronchospastic and wheezy. Remains weak and debilitated. Oral intake remains quite diminished. Repeat arthroscopy and lavage yielded no microbial growth and the most recent cultures came back negative. Meanwhile, based on the earlier cultures of stenotrophomonas, the patient remains on Bactrim. Creatini ne is stable at 1.2. Responded adequately to Lasix and the patient produced approximately 2.8 L of negative fluid balance over the past 24 hours. Potassium is at 4.8. WBC count is at 8.4 with hemoglobin 8.6. Chest x-ray findings are essentially unchanged and the patient has stable lower lobe pulmonary filtrates which are essentially unchanged. Seen today on 06/29/2024, patient is feeling better today, breathing easier. However he remains on Airvo with FiO2 of 60% and flow of 55 L/min. Patient is on antibiotics for his pneumonia and positive multi microbial cultures from his sputum and his BAL. This is being addressed accordingly, however the main organism seems to be Stenotrophomonas maltophilia WBC count is 9.8 hemoglobin is 9 basic metabolic profile is normal BUN is 24 creatinine 1.23. This x-ray from yesterday continues show bilateral extensive infiltrates specially at the bases of his right lung and left lung/lingula Patient was evaluated today on 06/30/2024, patient is basically about the same, continues to have cough, shortness of breath, significant amount of secretions, on 8 L high flow nasal cannula, patient is developing worsening electrolytes imbalance, renal functioning is not changing much creatinine 1.19, however his potassium is 5.8 sodium is 129 WBC 16.1. Chest x-ray continues to show significant airspace disease involving the left lower lobe and lingula as well as the right lower lobe, infectious disease is concerned about Bactrim with hyperkalemia, and recommending IV Levaquin instead. Patient was seen today on 07/01/2024, patient feels worse today, he is on Airvo at 70% FiO2 and 55 L flow, continues to have intermittent cough wheezing shortn ess of breath, cough is productive. His antibiotics were changed yesterday from Bactrim to Levaquin, being followed by infectious disease. 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 Basic metabolic profile is better potassium is down to 5.1 BUN is 28 creatinine 1.25. Family is at bedside, and I discussed his pulmonary status with the family Reevaluate today on 07/02/2024, patient is feeling a bit better today compared to yesterday. Breathing easier, CT of the chest was reviewed patient has significant COPD/emphysema and bilateral airspace disease patient remains on Levaquin, bronchodilators, and steroids, patient is also receiving multiple bronchodilators, some improvement but not back to baseline. Still requiring Airvo with high flow and high FiO2. WBC count today is 13.6 hemoglobin 9.8 basic metabolic profile is normal BUN is 30 creatinine 1.38 Patient was seen today on 07/03/2024, continues to steadily improve, however he remains on Airvo, 40 L flow and 60% FiO2 O2 saturation 96%. Less cough less wheezing less shortness of breath, he seems more comfortable today than he felt in the last few days. WBC count is 12.6 hemoglobin 8.9 basic metabolic profile is normal BUN is 27 creatinine 1.27, better today compared to yesterday. Pat lluvia remains on Levaquin Reevaluate today on 07/04/2024, patient continues to feel better today, however he is on relatively higher FiO2 and higher flow via Airvo. He is up to 65% and his flow is 50 L. Patient is comfortable, continues to have intermittent cough wheezing, cough is productive with yellow phlegm. No fever no chills no hemoptysis, remains on Levaquin. Objective - Vital Signs Vital signs: Vital Signs Temp 97.9 F 07/04/24 07:59 Pulse 88 07/04/24 11:26 Resp 21 07/04/24 11:15 BP 126/71 07/04/24 11:15 Pulse Ox 93 L 07/04/24 11:15 FiO2 65 07/04/24 11:15 Intake & Output 07/03/24 07/04/24 07/04/24 18:59 06:59 18:59 Intake Total 477 118 Output Total 680 1600 400 Balance -203 -1600 -282 Weight 46.5 kg Intake: Oral 477 118 Output: Urine 680 1600 400 Other: Voiding Method Indwelling Catheter Indwelling Catheter Indwelling Catheter # Bowel Movements 1 - Exam General: Revealed 79-year-old white male on Airvo 65% and 50 L flow HEENT examination is grossly unremarkable. Mucous membranes are moist. No oral lesions. Neck supple. Full range of motion. No adenopathy thyromegaly or neck vein distention. Cardiovascular examination reveals regular rhythm rate. S1-S2 normal. No S3 or S4. No discernible murmur noted. Heart sounds are distant. Lungs reveal normal crackles at the bases no rhonchi no wheezes Abdomen soft and without bowel sounds. No masses or tenderness. Extremities are intact. No cyanosis clubbing or edema. Skin is without rash or lesion. Neurologic alert oriented x 3 no gross focal deficit Theatric: Normal mood affect and normal mental status examination - Labs CBC & Chem 7: 07/04/24 06:16 07/04/24 06:16 Labs: Abnormal Lab Results - Last 24 Hours (Table) 07/03/24 07/03/24 07/04/24 Range/Units 17:02 20:35 06:09 WBC (3.8-10.6) k/uL RBC (4.30-5.90) m/uL Hgb (13.0-17.5) gm/dL Hct (39.0-53.0) % Sodium (137-145) mmol/L BUN (9-20) mg/dL Glucose (74-99) mg/dL POC Glucose (mg/dL) 168 H 160 H 177 H (70-110) mg/dL Total Protein (6.3-8.2) g/dL Albumin (3.5-5.0) g/dL 07/04/24 07/04/24 07/04/24 Range/Units 06:16 06:16 11:50 WBC 14.6 H (3.8-10.6) k/uL RBC 3.19 L (4.30-5.90) m/uL Hgb 9.6 L (13.0-17.5) gm/dL Hct 29.6 L (39.0-53.0) % Sodium 132 L (137-145) mmol/L BUN 31 H (9-20) mg/dL Glucose 162 H (74-99) mg/dL POC Glucose (mg/dL) 308 H (70-110) mg/dL Total Protein 4.8 L (6.3-8.2) g/dL Albumin 2.7 L (3.5-5.0) g/dL Microbiology - Last 24 Hours (Table) 06/18/24 15:53 Legionella Culture - Final Sputum Assessment and Plan Assessment: Impression: Acute hypoxic respiratory failure, secondary to pneumonia/multimicrobial Recurrent respiratory tract infection/pneumonia and the patient continues to lower lobe consolidation previous culture showing gram-negative bacterial infection including stenotrophomonas. Suspect ongoing mucous plugging, leading to shortness of breath Recent hospitalization for a COPD exacerbation and a COVID-19 infection, Acute COPD exacerbation secondary to above Previous hospitalization for a pseudomonal tracheobronchitis/pneumonia Oxygen dependent chronic obstructive pulmonary disease with an FEV1 value 39% of predicted Chronic tobacco dependence of greater than 60 years Right upper lobe PET avid pulmonary nodule which is being monitored on outpatient basis, measuring up to 1.4 cm in size, enlarging in size and the patient will need an SBRT at a later stage on outpatient basis. History of non-Hodgkin's lymphoma Chronic stage III kidney disease Coronary disease with previous coronary artery bypass surgery in 2001 History of abdominal aortic aneurysm status post stent placement in March 2022 Carotid stenosis status post endarterectomy History of ESBL E. coli and bronchial wash in 2021 Hyperlipidemia Hypertension Recommendation: Continue Levaquin Continue Airvo and titrate accordingly Use BiPAP as needed Continue aggressive pulmonary toileting Continue to closely monitor renal profile, and electrolytes, improved since the patient went off Bactrim and using Levaquin instead Continue bronchodilators and IV Solu-Medrol Continue diuretics Will continue to follow Prognosis is relatively guarded. Time with Patient: Less than 30
--- NOTE | 2024-07-04 14:48 | P.PN ---
Subjective Progress Note Date: 07/04/24 Principal diagnosis: Reason for follow-up is pneumonia Patient is a 79-year-old male with a past medical history significant for non-Hodgkin lymphoma COPD hypertension hyperlipidemia heart failure recently diagnosed with a COVID-19 presented to hospital for evaluation of increasing shortness of breath and cough sputum production did have patient evaluated on the chest x-ray concerning for pneumonia. On today's evaluation that is 07/04/2024, the patient continues to be afebrile, the patient is on Airvo 65% FiO2 however mention breathing slightly comfortably P denies any chest pain cough decreased intensity mostly dry in nature no nausea vomiting no abdominal pain or diarrhea. Patient white count is slightly up to 14.6 creatinine 1.06 Objective - Vital Signs Vital signs: Vital Signs Temp 97.9 F 07/04/24 07:59 Pulse 88 07/04/24 11:26 Resp 21 07/04/24 11:15 BP 126/71 07/04/24 11:15 Pulse Ox 93 L 07/04/24 11:15 FiO2 65 07/04/24 11:15 Intake & Output 07/03/24 07/04/24 07/04/24 18:59 06:59 18:59 Intake Total 477 118 Output Total 680 1600 400 Balance - -282 Weight 46.5 kg Intake: Oral 477 118 Output: Urine 680 1600 400 Other: Voiding Method Indwelling Catheter Indwelling Catheter Indwelling Catheter # Bowel Movements 1 - Exam GENERAL DESCRIPTION: An elderly male up in bed in no distress RESPIRATORY SYSTEM: Unlabored breathing , coarse breath sounds bilaterally HEART: S1 S2 regular rate and rhythm , ABDOMEN: Soft , no tenderness EXTREMITIES: No edema feet - Labs CBC & Chem 7: 07/04/24 06:16 07/04/24 06:16 Labs: Abnormal Lab Results - Last 24 Hours (Table) 07/03/24 07/03/24 07/04/24 Range/Units 17:02 20:35 06:09 WBC (3.8-10.6) k/uL RBC (4.30-5.90) m/uL Hgb (13.0-17.5) gm/dL Hct (39.0-53.0) % Sodium (137-145) mmol/L BUN (9-20) mg/dL Glucose (74-99) mg/dL POC Glucose (mg/dL) 168 H 160 H 177 H (70-110) mg/dL Total Protein (6.3-8.2) g/dL Albumin (3.5-5.0) g/dL 07/04/24 07/04/24 07/04/24 Range/Units 06:16 06:16 11:50 WBC 14.6 H (3.8-10.6) k/uL RBC 3.19 L (4.30-5.90) m/uL Hgb 9.6 L (13.0-17.5) gm/dL Hct 29.6 L (39.0-53.0) % Sodium 132 L (137-145) mmol/L BUN 31 H (9-20) mg/dL Glucose 162 H (74-99) mg/dL POC Glucose (mg/dL) 308 H (70-110) mg/dL Total Protein 4.8 L (6.3-8.2) g/dL Albumin 2.7 L (3.5-5.0) g/dL Microbiology - Last 24 Hours (Table) 06/18/24 15:53 Legionella Culture - Final Sputum Assessment and Plan (1) Pneumonia Current Visit: Yes Status: Acute Code(s): J18.9 - PNEUMONIA, UNSPECIFIED ORGANISM SNOMED Code(s): 871374123 (2) Sepsis Current Visit: No Status: Acute Code(s): A41.9 - SEPSIS, UNSPECIFIED ORGANISM SNOMED Code(s): 29385128 Plan: 1patient presented to hospital with sepsis in this patient who did have fever tachycardia mild hypotension source is likely pneumonia in this patient who recently did have a COVID-19 will need to cover for resistant gram negative to be the likely etiology and the patient recently grew Pseudomonas in his BAL culture 2-blood cultures are so far negative initial sputum has been negative, urine for Legionella antigen was negative mycoplasma IgM not elevated, repeat sputum is growing stenotrophomonas as well as Aspergillus and Eden 3 Aspergillus CF antibodies came back negative, and Aspergillus galactomannan requested but no results 4patient remains to be afebrile and the patient white count is slightly up today, CT chest did not show any significant consolidation 5the patient is showing some clinical improvement continue with the Levaquin and monitor clinical course closely Dictation was produced using [employer] software. please excuse any grammatical, word or spelling errors. Time with Patient: Less than 30
[2024-07-04 16:32] LABS: Glucose,Whole Blood 258 mg/dL (70-110)
[2024-07-04 20:07] LABS: Glucose,Whole Blood 155 mg/dL (70-110)
[2024-07-05 05:53] LABS: Glucose,Whole Blood 201 mg/dL (70-110)
[2024-07-05 07:42] LABS: HCT 27.9 % (39.0-53.0); HGB 9.3 gm/dL (13.0-17.5); MCH 30.2 pg (25.0-35.0); MCHC 33.3 g/dL (31.0-37.0); MCV 90.7 fL (80.0-100.0); Mean Platelet Volume 9.2; Platelet Count 142 k/uL (150-450); RBC 3.07 m/uL (4.30-5.90); RDW 15.5 % (11.5-15.5); WBC 13.4 k/uL (3.8-10.6)
[2024-07-05 07:58] LABS: ALT 34 U/L (4-49); AST 33 U/L (17-59); African American GFR (CKD) 77 (>60 ml/min/1.73 sqM); Albumin 2.6 g/dL (3.5-5.0); Alkaline Phosphatase 99 U/L (38-126); Anion Gap 1 mmol/L; Blood Urea Nitrogen 32 mg/dL (9-20); Calcium 8.2 mg/dL (8.4-10.2); Carbon Dioxide 31 mmol/L (22-30); Chloride 100 mmol/L (98-107); Glucose 180 mg/dL (74-99); Magnesium 1.8 mg/dL (1.6-2.3); Non-African American GFR(CKD) 67 (>60 ml/min/1.73 sqM); Potassium 4.7 mmol/L (3.5-5.1); Sodium 132 mmol/L (137-145); Total Bilirubin 0.5 mg/dL (0.2-1.3); Total Protein 4.6 g/dL (6.3-8.2)
[2024-07-05 11:39] LABS: Glucose,Whole Blood 206 mg/dL (70-110)
--- NOTE | 2024-07-05 13:33 | P.PN ---
Subjective Progress Note Date: 07/05/24 Principal diagnosis: Acute hypoxic respiratory failure secondary to gram-negative pneumonia and stenotrophomonas infection On 06/22/2024, the patient is being seen for a follow-up. This morning, the patient is on a BiPAP pressure of 16 over 5 cm of water with FiO2 of 60% and the patient is on a lactated Ringer at rate of 50 cc an hour. Chest x-ray was done this morning and it showed patchy infiltrates in lung bases more so on the right consistent with pneumonia. Most recent bronchoscopy yielded stenotrophomonas and the patient has grown Pseudomonas in the past. The patient is currently on IV Zosyn. He remains on DuoNeb nebulized treatments [id number]. He is on Symbicort. He is on IV Solu-Medrol. He is awake and alert and communicating. The white cell count is at 7 with hemoglobin of 10 and platelet count of 189. BUN is 27 with a creatinine of 1.36 and a sodium levels at 138. He is weak and quite debilitated on a chronic basis. Bactrim will be also added to his regimen. On 06/23/2024, the patient is still on Airvo at 35 L with an FiO2 of 50% with a pulse ox of 96%. Feels somewhat improved compared to yesterday. Continues to have a congested cough with limited amount of sputum production. Antibiotic modification was done yesterday and the patient is currently on a combination of Zosyn and IV Bactrim. Renal function remained stable. On today's blood work, the creatinine is at 1.24 with a BUN of 23. Rest of the electrolytes are all s table and within normal limits. White cell count of 5.3 with a hemoglobin of 9. A repeat chest x-ray from today shows some bibasilar pulmonary filtrates slightly worse on the left along with background COPD. Remains on bronchodilators. Remains on steroids. Remains on lactated Ringer at 50 cc an hour. Remains on Symbicort and DuoNeb updrafts [id number]. Home medications have been also resumed. 06/24/2024, the patient remains on Airvo 35 L with an FiO2 of 55%. The patient continues to have respiratory difficulties, cough, congestion, unable to bring up much of sputum. No significant improvement in respiratory status over the past 24 hours. The patient remains on a combination of IV Bactrim and IV Zosyn. The white cell count is at 8.1. Hemoglobin is 8.6 and a platelet count of 142. BUN is 25 with a creatinine of 1.22. He is getting progressively more debilitated and weak. Spending most of the time in bed. Oral intake is diminished and the patient had minimal amount of old. Earlier this morning. I plan to do a bronchoscopy on this patient in the afternoon to further optimize her respiratory status. Suspect mucous plugs. 06/25/2024, the patient is post bronchoscopy. The patient remains on Airvo 35 L with an FiO2 of 55%. Continues to struggle with his breathing. Cough and congestion is improved compared to yesterday post bronchoscopy. Repeat bronchoalveolar lavage was done and results are still pending. Most recent sputum sample is showing Eden, Aspergillus and stenotrophomonas. The patient remains on Bactrim IV. Remains on IV Solu-Medrol. Remains on DuoNeb nebulized treatments [id number]. The white cell count of 7.4 with a hemoglobin 9.5 and a platelet count of 197. Sodium is at 136, BUN 25 with a creatinine of 1.1. ID is on the case. No other new complaints otherwise for now. 06/26/2024, patient is being seen for a follow-up. The patient is sitting up in a chair. Awaiting the results from the bronchoscopy and bronchial lavage. Most recent sputum analysis was positive for stenotrophomonas in addition to Aspergillus and candidal elements. Earlier this morning, the patient was on Airvo. He was at 35 L with an FiO2 of 55%. I took him off the Airvo and I put him on 60 days of oxygen by nasal cannula and his current pulse ox 94%. He remains bronchospastic and wheezy. Awaiting consistent 0.8 edema 9.5 and a plat elet count of 199. BUN is 25 with a creatinine of 1.09 and sodium levels at 135. Communicating. Awake. No chest pain. No other new complaints since yesterday. Awaiting results of the bronchial lavage and the patient remains on IV Bactrim. In terms of his renal function, the patient's creatinine is stable at 1.09. 06/27/2024, the patient continues to have labored breathing. After being on nasal cannula for yesterday, this patient became more short of breath this morning. Based on that, the patient was placed again on Airvo and the patient is currently on 50 L with FiO2 of 60%. Pulse ox in the order of 94 to 95%. He remains on IV Bactrim. Continues to encounter cough and congestion. Unable to bring up much of sputum. No chest pain. Looks quite lethargic and weak. His white cell count today is at 10.2 with a hemoglobin 9.9. BUN is 23 with a creatinine of 1.1. Rest of the medication remains unchanged. Remains on IV Solu-Medrol. Remains on DuoNeb nebulized treatments [id number]. Symbicort will be discontinued and the patient was placed on a combination of Perforomist and Pulmicort. Oral intake remains quite diminished. 06/28/2024, the patient continues to struggle with his breathing. He remains on Airvo and is alternating it with a BiPAP. I am going to switch to BiPAP at a pressure of 10 over 5 cm of water and FiO2 of 50%. Meanwhile, this morning, he remains on Airvo and is currently on 50 L with an FiO2 of 60%. Congested cough. Remains bronchospastic and wheezy. Remains weak and debilitated. Oral intake remains quite diminished. Repeat arthroscopy and lavage yielded no microbial growth and the most recent cultures came back negative. Meanwhile, based on the earlier cultures of stenotrophomonas, the patient remains on Bactrim. Creatini ne is stable at 1.2. Responded adequately to Lasix and the patient produced approximately 2.8 L of negative fluid balance over the past 24 hours. Potassium is at 4.8. WBC count is at 8.4 with hemoglobin 8.6. Chest x-ray findings are essentially unchanged and the patient has stable lower lobe pulmonary filtrates which are essentially unchanged. Seen today on 06/29/2024, patient is feeling better today, breathing easier. However he remains on Airvo with FiO2 of 60% and flow of 55 L/min. Patient is on antibiotics for his pneumonia and positive multi microbial cultures from his sputum and his BAL. This is being addressed accordingly, however the main organism seems to be Stenotrophomonas maltophilia WBC count is 9.8 hemoglobin is 9 basic metabolic profile is normal BUN is 24 creatinine 1.23. This x-ray from yesterday continues show bilateral extensive infiltrates specially at the bases of his right lung and left lung/lingula Patient was evaluated today on 06/30/2024, patient is basically about the same, continues to have cough, shortness of breath, significant amount of secretions, on 8 L high flow nasal cannula, patient is developing worsening electrolytes imbalance, renal functioning is not changing much creatinine 1.19, however his potassium is 5.8 sodium is 129 WBC 16.1. Chest x-ray continues to show significant airspace disease involving the left lower lobe and lingula as well as the right lower lobe, infectious disease is concerned about Bactrim with hyperkalemia, and recommending IV Levaquin instead. Patient was seen today on 07/01/2024, patient feels worse today, he is on Airvo at 70% FiO2 and 55 L flow, continues to have intermittent cough wheezing shortn ess of breath, cough is productive. His antibiotics were changed yesterday from Bactrim to Levaquin, being followed by infectious disease. 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 Basic metabolic profile is better potassium is down to 5.1 BUN is 28 creatinine 1.25. Family is at bedside, and I discussed his pulmonary status with the family Reevaluate today on 07/02/2024, patient is feeling a bit better today compared to yesterday. Breathing easier, CT of the chest was reviewed patient has significant COPD/emphysema and bilateral airspace disease patient remains on Levaquin, bronchodilators, and steroids, patient is also receiving multiple bronchodilators, some improvement but not back to baseline. Still requiring Airvo with high flow and high FiO2. WBC count today is 13.6 hemoglobin 9.8 basic metabolic profile is normal BUN is 30 creatinine 1.38 Patient was seen today on 07/03/2024, continues to steadily improve, however he remains on Airvo, 40 L flow and 60% FiO2 O2 saturation 96%. Less cough less wheezing less shortness of breath, he seems more comfortable today than he felt in the last few days. WBC count is 12.6 hemoglobin 8.9 basic metabolic profile is normal BUN is 27 creatinine 1.27, better today compared to yesterday. Pat lluvia remains on Levaquin Reevaluate today on 07/04/2024, patient continues to feel better today, however he is on relatively higher FiO2 and higher flow via Airvo. He is up to 65% and his flow is 50 L. Patient is comfortable, continues to have intermittent cough wheezing, cough is productive with yellow phlegm. No fever no chills no hemoptysis, remains on Levaquin. Patient was evaluated today on 07/05/2024, remains on Airvo, patient is doing well today, less cough less wheezing less shortness of breath remains on Levaquin. WBC count is 13.4 hemoglobin 9.3 basic metabolic profile is normal BUN is 32 creatinine 1.05 Objective - Vital Signs Vital signs: Vital Signs Temp 97.7 F 07/05/24 08:07 Pulse 84 07/05/24 11:54 Resp 17 07/05/24 11:10 BP 130/60 07/05/24 11:10 Pulse Ox 98 07/05/24 11:42 FiO2 65 07/05/24 11:42 Intake & Output 07/04/24 07/05/24 07/05/24 18:59 06:59 18:59 Intake Total 598 480 Output Total 1050 1400 Balance -452 -1400 480 Weight 46.5 kg Intake: Oral 598 480 Output: Urine 1050 1400 Other: Voiding Method Indwelling Catheter Indwelling Catheter Indwelling Catheter # Bowel Movements 1 - Exam Physical exam: General: Revealed 79-year-old white male on Airvo 65% and 50 L flow, O2 satu ration is 98% HEENT examination is grossly unremarkable. Mucous membranes are moist. No oral lesions. Neck supple. Full range of motion. No adenopathy thyromegaly or neck vein distention. Cardiovascular examination reveals regular rhythm rate. S1-S2 normal. No S3 or S4. No discernible murmur noted. Heart sounds are distant. Lungs reveal normal crackles at the bases scattered wheezing noted on forced expiratory maneuver Abdomen soft and without bowel sounds. No masses or tenderness. Extremities are intact. No cyanosis clubbing or edema. Skin is without rash or lesion. Neurologic alert oriented x 3 no gross focal deficit Theatric: Normal mood affect and normal mental status examination - Labs CBC & Chem 7: 07/05/24 07:07 07/05/24 07:07 Labs: Abnormal Lab Results - Last 24 Hours (Table) 07/04/24 07/04/24 07/05/24 Range/Units 16:31 20:04 05:49 WBC (3.8-10.6) k/uL RBC (4.30-5.90) m/uL Hgb (13.0-17.5) gm/dL Hct (39.0-53.0) % Plt Count (150-450) k/uL Sodium (137-145) mmol/L Carbon Dioxide (22-30) mmol/L BUN (9-20) mg/dL Glucose (74-99) mg/dL POC Glucose (mg/dL) 258 H 155 H 201 H (70-110) mg/dL Calcium (8.4-10.2) mg/dL Total Protein (6.3-8.2) g/dL Albumin (3.5-5.0) g/dL 07/05/24 07/05/24 07/05/24 Range/Units 07:07 07:07 11:37 WBC 13.4 H (3.8-10.6) k/uL RBC 3.07 L (4.30-5.90) m/uL Hgb 9.3 L (13.0-17.5) gm/dL Hct 27.9 L (39.0-53.0) % Plt Count 142 L (150-450) k/uL Sodium 132 L (137-145) mmol/L Carbon Dioxide 31 H (22-30) mmol/L BUN 32 H (9-20) mg/dL Glucose 180 H (74-99) mg/dL POC Glucose (mg/dL) 206 H (70-110) mg/dL Calcium 8.2 L (8.4-10.2) mg/dL Total Protein 4.6 L (6.3-8.2) g/dL Albumin 2.6 L (3.5-5.0) g/dL Assessment and Plan Assessment: Impression: Acute hypoxic respiratory failure, secondary to pneumonia/multimicrobial Recurrent respiratory tract infection/pneumonia and the patient continues to lower lobe consolidation previous culture showing gram-negative bacterial infection including stenotrophomonas. Suspect ongoing mucous plugging, leading to shortness of breath Recent hospitalization for a COPD exacerbation and a COVID-19 infection, Acute COPD exacerbation secondary to above Previous hospitalization for a pseudomonal tracheobronchitis/pneumonia Oxygen dependent chronic obstructive pulmonary disease with an FEV1 value 39% of predicted Chronic tobacco dependence of greater than 60 years Right upper lobe PET avid pulmonary nodule which is being monitored on outpatient basis, measuring up to 1.4 cm in size, enlarging in size and the patient will need an SBRT at a later stage on outpatient basis. History of non-Hodgkin's lymphoma Chronic stage III kidney disease Coronary disease with previous coronary artery bypass surgery in 2001 History of abdominal aortic aneurysm status post stent placement in March 2022 Carotid stenosis status post endarterectomy History of ESBL E. coli and bronchial wash in 2021 Hyperlipidemia Hypertension Recommendation: Continue Levaquin Continue Airvo and titrate FiO2 and flow accordingly Continue aggressive pulmonary toileting Continue to closely monitor renal profile, and electrolytes, improved since the patient went off Bactrim and using Levaquin instead Continue bronchodilators and IV Solu-Medrol Continue diuretics Repeat chest x-ray in a.m. Will continue to follow Prognosis is relatively guarded. Time with Patient: Less than 30
--- NOTE | 2024-07-05 14:23 | P.PN ---
Subjective Progress Note Date: 07/05/24 Hospital course: Patient is a very pleasant 79-year-old male with a past medical history of systolic CHF with EF 40 to 45%, COPD on 3L home O2, chronic kidney disease, hypertension, hyperlipidemia, non-Hodgkins lymphoma, CAD with CABG, AAA with stent, carotid stenosis with endarterectomy presents to the ED for shortness of breath. Apparently his O2 sat was in the 70s when EMS arrived on his 3L NC. Recently admitted from 06/05-06/07 for similar complaints, COVID + at that time, treated with bronchodilators, Zosyn, SoluMedrol and discharged on a Prednisone taper and to complete a course of Ciprofloxacin. He recently underwent bronchoscopy with BAL with Dr. Cano on 05/13 with cultures resulting in Pseudomonas and eden albicans. He was started on Ciprofloxacin at that time. He underwent repeat bronchoscopy with BAL with Dr. Cano on 06/03 which grew stenotrophomonas maltophilia. He was continued on Ciprofloxacin and according to the patient has been taking it over the past 5-6 weeks. In the ED he underwent extensive evaluation. Tmax 100F, BP 119/62, HR 102, RR 40, 91% on 3L. CBC, Coag panel, CMP significant for RBC 4, Hg 12.4, Hct 35.8, PT 9.9, bicarb 33, BUN 39, Cr 1.91, glu 131. Lactic acid 2.9. Troponin 0.054. EKG sinus tachycardia with RBBB. CXR showed COPD with patchy interstitial densities increased from previous CXRs. Patient is admitted for further workup and management. Patient seen by pulmonology and started on IV Zosyn and Bactrim. Patient also on IV steroids. Patient was on BiPAP. Patient weaned down to Airvo. Patient had another bronchoscopy done on 06/24/2024 that showed tracheobronchomalacia with copious thick secretions and mucous plugging. Sputum culture obtained at this time showing Aspergillus fumigatus, stenotrophomonas maltophilia, and Eden albicans. Patient currently on Bactrim 352 mg IVPB every 8 hours. Physical exam: Patient was seen and fully evaluated at bedside this morning. Patient reports again feeling a bit better today, day 4 of his rports of feeling improvement. Patient states he has been using his flutter valve more frequently and feels that he is getting more secretions up. He remains on Airvo. Patient denies having any additional questions, needs, concerns, or complaints at this time. Vital signs reviewed and stable. General: Nontoxic, no distress and appears stated age. Derm: Skin warm and dry, normal coloration for ethnicity. Head: Atraumatic, normocephalic and symmetric. Eyes: EOM's intact, no lid lag, and anicteric sclera Mouth: no lip lesions, mucus membranes moist Cardiovascular: regular rate and rhythm with normal S1S2, systolic murmur, positive posterior tibial pulses bilaterally, and cap refill < 2 seconds. Lungs: Respirations even, regular, and unlabored on Airvo. Lungs diminished with bibasilar crackles and expiratory wheezes. No rhonchi or rails noted this morning. Abdominal: soft, nontender to palpation, no guarding, no appreciable organomegaly Ext: ROM intact. No gross muscle atrophy, no edema, no contractures Neuro: Speech clear, face symmetrical and CN II-XII grossly intact with no noted focal neuro deficits Psych: Alert and oriented to person, place, time, and situation. Appropriate and pleasant affect. Assessment and Plan of Care: Acute on chronic hypoxic respiratory failure, likely from COVID sequelae complicated by development of pseudomonas and stenotropomonas maltophilia pneumonia Sepsis upon admission, secondary to above Acute on chronic COPD exacerbation, secondary to above Generalized weakness and fatigue secondary to physical decomposition resulting from prolonged hospitalization -Patient in the last month had BAL cultures that were positive for Pseudomonas and stenotrophomonas maltophilia -Patient underwent 9-day course of IV antibiotics with Bactrim and secondary to hyperkalemia Bactrim was discontinued and on 06/30/24 patient was started on Levaquin 750 mg IVPB every 48 hours. -Continue with supplemental oxygen maintain SpO2 equal to or greater than 90%. Patient currently remains on Airvo. Wean O2 as tolerated -Sputum culture positive for aspergillus fumigatus, stenotrophomonas maltophilia, and Eden albicans. Repeat cultures from bronchoscopy 06/27/2024 negative showing no growth. -Infectious disease following, reviewed documentation in chart.. -Pulmonology following, took patient for bronchoscopy with BAL on 06/24/2024 which revealed tracheobronchomalacia with copious thick secretions and mucous plugging. Reviewed documentation in chart. -Continue with Symbicort 2 puffs INH BID. DuoNebs scheduled Q4H and as needed for wheezing/shortness of breath. Singulair 10 mg PO HS, and IV steroids with SoluMedrol 60 mg IV Q8H. -CT chest was completed showing small right pleural effusion and moderate to severe emphysema with right lower lobe 13 mm pulmonary nodule. -PT/OT following Pulmonary nodule, incidental finding on CT. Recommend outpatient close monitoring/surveillance with repeat CT in 3 months. Hyponatremia. Stable at 132 this morning. Hyerkalemia. Hyperkalemia likely secondary to Bactrim and resolved after discontinuation of Bactrim and starting patient on Levaquin. Elevated troponin. Troponins flat and ACS ruled out. Continue with ASA 81 mg PO QD. Lipitor 40 mg PO QHS. Plavix 75 mg PO QD. Metoprolol 25 mg PO QD. 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 Hemoglobin A1c 7.3. Continue glycemic protocol with NovoLog sliding scale insulin and scheduled NovoLog 8 units 3 times daily with meals Acute kidney injury on CKD stage IIIa. Resolved. Initially presented with BRITT with BUN of 39, creatinine of 1.91, and GFR of 32. BRITT resolved and renal function back at baseline with BUN of 32, creatinine 1.05, GFR of 67. Lactic acidosis. Resolved Acute blood loss anemia. Patient's hemoglobin was trending down and subcu Lovenox for DVT prophylaxis was discontinued and orders placed for SCDs. Today hemoglobin is 9.3 and stable. Patient at this time is too unstable for any endoscopic procedures Chronic conditions: Systolic CHF with EF 40-45%: Appears euvolemic. Hypertension: Continue metoprolol 25 mg daily. Dyslipidemia: Continue Lipitor 40 mg nightly. Non-Hodgkins lymphoma. Continue to follow-up outpatient with manager float. CAD with CABG: Continue daily cardiac medication regimen with aspirin 81 mg daily, Lipitor 40 mg nightly, Plavix 75 mg daily, and metoprolol 25 mg daily. Carotid stenosis with endarterectomy: Continue daily medication regimen with aspirin 81 mg daily, Lipitor 40 mg nightly, and Plavix 75 mg daily. Data and imaging reviewed: Morning labs reviewed. CBC showing leukocytosis with WBC count of 13.4 and stable hemoglobin of 9.3. BMP showing mild hyponatremia with sodium of 132, elevated BUN of 32, creatinine of 1.05, GFR 67. Blood glucose was 180. Magnesium 1.8. Liver profile normal findings. Albumin was low at 2.7. Documented urinary output over the past 24 hours was 2450 cc Vital signs reviewed. Blood pressure blood pressure 135/62, heart rate 96, respiratory rate 18, temp 97.7 F, and SpO2 of 90% on Airvo with 65% FiO2 and 50 L.. Prognosis remains guarded. CODE STATUS: Full code DVT prophylaxis: SCDs Anticipated discharge date: Pending clinical course Anticipated discharge place: Pending clinical course Patient was seen independently by Nurse Pracitioner. This document was prepared using sciencebite dictation software. Please allow for errors in designated broker, while rare they do occur. I reviewed the documentation as provided by the MICHELE above, who is the original author of this note. I agree with the documented assessment and plan, with the following changes: none Objective - Vital Signs Vital signs: Vital Signs Temp 97.7 F 07/05/24 08:07 Pulse 96 07/05/24 08:07 Resp 18 07/05/24 08:07 BP 135/62 07/05/24 08:07 Pulse Ox 90 L 07/05/24 08:07 FiO2 65 07/05/24 07:41 Intake & Output 07/04/24 07/05/24 07/05/24 18:59 06:59 18:59 Intake Total 598 Output Total 1050 1400 Balance -452 -1400 Weight 46.5 kg Intake: Oral 598 Output: Urine 1050 1400 Other: Voiding Method Indwelling Catheter Indwelling Catheter # Bowel Movements 1 - Labs CBC & Chem 7: 07/05/24 07:07 07/05/24 07:07 Labs: Abnormal Lab Results - Last 24 Hours (Table) 07/04/24 07/04/24 07/04/24 Range/Units 11:50 16:31 20:04 WBC (3.8-10.6) k/uL RBC (4.30-5.90) m/uL Hgb (13.0-17.5) gm/dL Hct (39.0-53.0) % Plt Count (150-450) k/uL Sodium (137-145) mmol/L Carbon Dioxide (22-30) mmol/L BUN (9-20) mg/dL Glucose (74-99) mg/dL POC Glucose (mg/dL) 308 H 258 H 155 H (70-110) mg/dL Calcium (8.4-10.2) mg/dL Total Protein (6.3-8.2) g/dL Albumin (3.5-5.0) g/dL 07/05/24 07/05/24 07/05/24 Range/Units 05:49 07:07 07:07 WBC 13.4 H (3.8-10.6) k/uL RBC 3.07 L (4.30-5.90) m/uL Hgb 9.3 L (13.0-17.5) gm/dL Hct 27.9 L (39.0-53.0) % Plt Count 142 L (150-450) k/uL Sodium 132 L (137-145) mmol/L Carbon Dioxide 31 H (22-30) mmol/L BUN 32 H (9-20) mg/dL Glucose 180 H (74-99) mg/dL POC Glucose (mg/dL) 201 H (70-110) mg/dL Calcium 8.2 L (8.4-10.2) mg/dL Total Protein 4.6 L (6.3-8.2) g/dL Albumin 2.6 L (3.5-5.0) g/dL
--- NOTE | 2024-07-05 15:42 | P.PN ---
Subjective Progress Note Date: 07/05/24 Principal diagnosis: Reason for follow-up is pneumonia Patient is a 79-year-old male with a past medical history significant for non-Hodgkin lymphoma COPD hypertension hyperlipidemia heart failure recently diagnosed with a COVID-19 presented to hospital for evaluation of increasing shortness of breath and cough sputum production did have patient evaluated on the chest x-ray concerning for pneumonia. On today's evaluation that is 07/05/2024, Patient is afebrile patient is currently on high flow nasal oxygen FiO2 of 65% however mention breathing slightly comfortably patient denies having any chest pain or worsening cough no vomiting or diarrhea. The patient white count is down to 13.4 creatinine is 1.0 5 repeat sputum culture has been negative Objective - Vital Signs Vital signs: Vital Signs Temp 97.7 F 07/05/24 08:07 Pulse 84 07/05/24 11:54 Resp 17 07/05/24 11:10 BP 130/60 07/05/24 11:10 Pulse Ox 98 07/05/24 11:42 FiO2 65 07/05/24 11:42 Intake & Output 07/04/24 07/05/24 07/05/24 18:59 06:59 18:59 Intake Total 598 480 Output Total 1050 1400 750 Balance -516 -3382 -962 Weight 46.5 kg Intake: Oral 598 480 Output: Urine 1050 1400 750 Other: Voiding Method Indwelling Catheter Indwelling Catheter Indwelling Catheter # Bowel Movements 1 - Exam GENERAL DESCRIPTION: An elderly male up in bed in no distress RESPIRATORY SYSTEM: Unlabored breathing , coarse breath sounds bilaterally HEART: S1 S2 regular rate and rhythm , ABDOMEN: Soft , no tenderness EXTREMITIES: No edema feet - Labs CBC & Chem 7: 07/05/24 07:07 07/05/24 07:07 Labs: Abnormal Lab Results - Last 24 Hours (Table) 07/04/24 07/04/24 07/05/24 Range/Units 16:31 20:04 05:49 WBC (3.8-10.6) k/uL RBC (4.30-5.90) m/uL Hgb (13.0-17.5) gm/dL Hct (39.0-53.0) % Plt Count (150-450) k/uL Sodium (137-145) mmol/L Carbon Dioxide (22-30) mmol/L BUN (9-20) mg/dL Glucose (74-99) mg/dL POC Glucose (mg/dL) 258 H 155 H 201 H (70-110) mg/dL Calcium (8.4-10.2) mg/dL Total Protein (6.3-8.2) g/dL Albumin (3.5-5.0) g/dL 07/05/24 07/05/24 07/05/24 Range/Units 07:07 07:07 11:37 WBC 13.4 H (3.8-10.6) k/uL RBC 3.07 L (4.30-5.90) m/uL Hgb 9.3 L (13.0-17.5) gm/dL Hct 27.9 L (39.0-53.0) % Plt Count 142 L (150-450) k/uL Sodium 132 L (137-145) mmol/L Carbon Dioxide 31 H (22-30) mmol/L BUN 32 H (9-20) mg/dL Glucose 180 H (74-99) mg/dL POC Glucose (mg/dL) 206 H (70-110) mg/dL Calcium 8.2 L (8.4-10.2) mg/dL Total Protein 4.6 L (6.3-8.2) g/dL Albumin 2.6 L (3.5-5.0) g/dL Assessment and Plan (1) Pneumonia Current Visit: Yes Status: Acute Code(s): J18.9 - PNEUMONIA, UNSPECIFIED ORGANISM SNOMED Code(s): 206667681 (2) Sepsis Current Visit: No Status: Acute Code(s): A41.9 - SEPSIS, UNSPECIFIED ORGANISM SNOMED Code(s): 69088795 Plan: 1patient presented to hospital with sepsis in this patient who did have fever tachycardia mild hypotension source is likely pneumonia in this patient who recently did have a COVID-19 will need to cover for resistant gram negative to be the likely etiology and the patient recently grew Pseudomonas in his BAL culture 2-blood cultures are so far negative initial sputum has been negative, urine for Legionella antigen was negative mycoplasma IgM not elevated, repeat sputum is growing stenotrophomonas as well as Aspergillus and Eden 3 Aspergillus CF antibodies came back negative, and Aspergillus galactomannan requested but no results 4patient remains to be afebrile and the patient white count is slightly up today, CT chest did not show any significant consolidation, patient to continue with the Levaquin and will monitor his clinical course closely Dictation was produced using [email or web address] dictation software. please excuse any grammatical, word or spelling errors. Time with Patient: Less than 30
[2024-07-05 16:39] LABS: Glucose,Whole Blood 218 mg/dL (70-110)
[2024-07-05 20:13] LABS: Glucose,Whole Blood 193 mg/dL (70-110)
[2024-07-06 05:55] LABS: Glucose,Whole Blood 211 mg/dL (70-110)
--- NOTE | 2024-07-06 08:22 | XR ---
EXAMINATION TYPE: XR chest 1V portable DATE OF EXAM: 07/06/2024 7:01 AM COMPARISON: Chest radiographs from 06/30/2024 CLINICAL INDICATION: Male, 79 years old with history of Pneumonia; TECHNIQUE: XR chest 1V portable Frontal view of the chest. FINDINGS: Lungs/Pleura: Similar multifocal airspace opacities. No evidence of pneumothorax or pleural effusion. Pulmonary vascularity: Unremarkable. Heart/mediastinum: Cardiomediastinal silhouette is enlarged. Atherosclerotic calcifications are seen in the aorta. Musculoskeletal: Degenerative changes of the shoulder joints. Midline sternotomy wires are noted. Other findings: None IMPRESSION: Similar multifocal airspace opacities. [facility], , 07/06/2024 8:19 AM
[2024-07-06 08:50] LABS: HCT 29.8 % (39.0-53.0); HGB 9.9 gm/dL (13.0-17.5); MCH 30.7 pg (25.0-35.0); MCHC 33.2 g/dL (31.0-37.0); MCV 92.3 fL (80.0-100.0); Mean Platelet Volume 8.9; Platelet Count 145 k/uL (150-450); RBC 3.23 m/uL (4.30-5.90); RDW 15.4 % (11.5-15.5); WBC 16.6 k/uL (3.8-10.6)
[2024-07-06 09:03] LABS: ALT 34 U/L (4-49); AST 34 U/L (17-59); African American GFR (CKD) 87 (>60 ml/min/1.73 sqM); Albumin 2.8 g/dL (3.5-5.0); Alkaline Phosphatase 122 U/L (38-126); Anion Gap 7 mmol/L; Blood Urea Nitrogen 36 mg/dL (9-20); Calcium 8.5 mg/dL (8.4-10.2); Carbon Dioxide 27 mmol/L (22-30); Chloride 99 mmol/L (98-107); Glucose 191 mg/dL (74-99); Magnesium 1.7 mg/dL (1.6-2.3); Non-African American GFR(CKD) 75 (>60 ml/min/1.73 sqM); Potassium 4.8 mmol/L (3.5-5.1); Sodium 133 mmol/L (137-145); Total Bilirubin 0.5 mg/dL (0.2-1.3)
[2024-07-06 11:25] LABS: Glucose,Whole Blood 197 mg/dL (70-110)
--- NOTE | 2024-07-06 12:15 | P.PN ---
Subjective Progress Note Date: 07/06/24 Principal diagnosis: Reason for follow-up is pneumonia Patient is a 79-year-old male with a past medical history significant for non-Hodgkin lymphoma COPD hypertension hyperlipidemia heart failure recently diagnosed with a COVID-19 presented to hospital for evaluation of increasing shortness of breath and cough sputum production did have patient evaluated on the chest x-ray concerning for pneumonia. On today's evaluation that is 07/06/2024, patient has been afebrile, patient is breathing slightly comfortably however still requiring 59% FiO2 on Airvo patient denies any chest pain or worsening cough or sputum production no vomiting or diarrhea. Patient white count is slightly up to 16.6 today creatinine 0.95 chest x-ray this morning similar multifocal airspace opacities Objective - Vital Signs Vital signs: Vital Signs Temp 98.2 F 07/06/24 11:29 Pulse 86 07/06/24 11:29 Resp 20 07/06/24 11:29 BP 145/76 07/06/24 11:29 Pulse Ox 96 07/06/24 11:29 FiO2 59 07/06/24 11:29 Intake & Output 07/05/24 07/06/24 07/06/24 18:59 06:59 18:59 Intake Total 598 240 Output Total 750 750 700 Balance -095 -376 -460 Weight 52 kg Intake: Oral 598 240 Output: Urine 750 750 700 Other: Voiding Method Indwelling Catheter Indwelling Catheter Indwelling Catheter # Bowel Movements 1 - Exam GENERAL DESCRIPTION: An elderly male up in bed in no distress RESPIRATORY SYSTEM: Unlabored breathing , coarse breath sounds bilaterally HEART: S1 S2 regular rate and rhythm , ABDOMEN: Soft , no tenderness EXTREMITIES: No edema feet - Labs CBC & Chem 7: 07/06/24 07:40 07/06/24 07:40 Labs: Abnormal Lab Results - Last 24 Hours (Table) 07/05/24 07/05/24 07/06/24 Range/Units 16:37 20:11 05:54 WBC (3.8-10.6) k/uL RBC (4.30-5.90) m/uL Hgb (13.0-17.5) gm/dL Hct (39.0-53.0) % Plt Count (150-450) k/uL Sodium (137-145) mmol/L BUN (9-20) mg/dL Glucose (74-99) mg/dL POC Glucose (mg/dL) 218 H 193 H 211 H (70-110) mg/dL Total Protein (6.3-8.2) g/dL Albumin (3.5-5.0) g/dL 07/06/24 07/06/24 07/06/24 Range/Units 07:40 07:40 11:24 WBC 16.6 H (3.8-10.6) k/uL RBC 3.23 L (4.30-5.90) m/uL Hgb 9.9 L (13.0-17.5) gm/dL Hct 29.8 L (39.0-53.0) % Plt Count 145 L (150-450) k/uL Sodium 133 L (137-145) mmol/L BUN 36 H (9-20) mg/dL Glucose 191 H (74-99) mg/dL POC Glucose (mg/dL) 197 H (70-110) mg/dL Total Protein 5.0 L (6.3-8.2) g/dL Albumin 2.8 L (3.5-5.0) g/dL Assessment and Plan (1) Pneumonia Current Visit: Yes Status: Acute Code(s): J18.9 - PNEUMONIA, UNSPECIFIED ORGANISM SNOMED Code(s): 094018542 (2) Sepsis Current Visit: No Status: Acute Code(s): A41.9 - SEPSIS, UNSPECIFIED ORGANISM SNOMED Code(s): 00621506 Plan: 1patient presented to hospital with sepsis in this patient who did have fever tachycardia mild hypotension source is likely pneumonia in this patient who recently did have a COVID-19 will need to cover for resistant gram negative to be the likely etiology and the patient recently grew Pseudomonas in his BAL culture 2-blood cultures are so far negative initial sputum has been negative, urine for Legionella antigen was negative mycoplasma IgM not elevated, repeat sputum is growing stenotrophomonas as well as Aspergillus and Eden 3 Aspergillus CF antibodies came back negative, and Aspergillus galactomannan requested but no results 4patient remains to be afebrile still requiring high flow nasal oxygen slight worsening of the white count could be related to possible related to steroids patient is on and will monitor closely continue with the [facility] Dictation was produced using [employer] software. please excuse any grammatical, word or spelling errors. Time with Patient: Less than 30
--- NOTE | 2024-07-06 12:50 | P.PN ---
Subjective Progress Note Date: 07/06/24 Principal diagnosis: COPD exacerbation. This is a very pleasant 79-year-old male patient who has a history of chronic and ongoing tobacco dependence, severe COPD maintained on a combination of Wixela and Spiriva on an outpatient basis. His previous pulmonary function test from 2020 has shown as an FEV1 of 39% of predicted at baseline. He is also oxygen dependent and utilizes oxygen on and off as requirement of oxygen becomes more needed whenever he gets an acute exacerbation. He has class III/IV chronic exertional dyspnea. He is also being monitored for a right upper lobe pulmonary nodule which is measuring 1.1 cm in size there was noted to be PET avid. Based on his advanced COPD and limited performance status he was recommended continue surveillance of this pulmonary nodule and decide at the later stage if SBRT would be of any benefit for this patient. He is also known to have coronary artery disease, has undergone previous coronary bypass surgery. He has also undergone previous stenting to SVG to RCA. Other comorbidities include hypertension, hyperlipidemia, previous history of non-Hodgkin's lymphoma treated with rituximab and the patient has carotid artery disease, abdominal aortic aneurysm with previous endovascular stent grafting and the patient has a aorto by iliac endovascular graft along with previous history of a upper GI bleed related to a duodenal ulcer which resulted into significant blood loss anemia. He has had frequent readmissions to the hospital. Recently discharged on June 07, 2024. His most recent bronchoscopy was performed on 06/03/2024 and was found to have Stenotrophomonas maltophilia and was treated with Ciprofloxa mindy. He came back to the emergency room yesterday 06/18/2024 with complaints of increasing shortness of breath, cough and congestion. Chest x-ray reveals interstitial opacities bilaterally. No pleural effusion. Mild hyperinflation. White count 6.2. Hemoglobin 12.4. Platelets 204. Sodium 139. Potassium 3.7. Bicarb 33. BUN 39. Creatinine 1.91. Glucose 131. Troponin 0.043. proBNP 571 . Procalcitonin 0.29. He has been initiated on DuoNeb inhalations, Symbicort, prednisone taper. Antibiotics in the form of Zosyn. Lovenox for DVT prophylaxis. He is seen in consultation on the regular medical floor. Currently sitting up in bed. He is dyspneic with conversation. Dyspneic with minimal exertion. Admits to still smoking 2 to 3 cigarettes a day. Currently maintaining O2 saturations in the 90s on 3 L/min per nasal cannula. He has been afebrile. Hemodynamically stable. The patient is seen today June 20, 2024 in follow-up on the regular medical floor. He is currently resting in bed. Awake and alert in no acute distress. He is breathing a bit easier today compared to yesterday. His only complaint is of sinus congestion. He is maintaining good O2 saturations in the 90s on 3 L/min per nasal cannula. No IV fluids. Blood and sputum cultures revealing no growth to date. Glucose 180. He is continued on DuoNeb and elations, Symbicort, Singulair, prednisone taper. Lovenox for DVT prophylaxis. Progress note dated June 21, 2024. This is an 79-year-old male with a history of severe COPD. FEV1 is 39% of predicted. Unfortunately, the patient does continue to smoke cigarettes. He was admitted with a diagnosis of COPD exacerbation. This morning, a rapid response team was called to this patient's bed, in room 476. The patient was very short of breath. He was placed on BiPAP, 12/5 and 40%. Blood gases were ordered. A chest x-ray was ordered. He received some Ativan and Xanax. He is getting lactated Ringer's at 50 cc an hour. The patient is a DO NOT INTUBATE patient. White count 11.6, hemoglobin 12.4, hematocrit 36.3, platelet count normal. Repeat blood gases show pO2 of 52, pCO2 of 35, and a pH of 7.49. At this point, the BiPAP was changed to 16/5. The FiO2 was increased to 50%. Sodium 143, potassium 4.3, chlorides 108, CO2 29, BUN 22, creatinine 1.30. Calcium is 8.8. Sputum and blood sampling has been negative thus far. Chest x- ray shows changes of COPD, without evidence of airspace consolidation. On 06/22/2024, the patient is being seen for a follow-up. This morning, the patient is on a BiPAP pressure of 16 over 5 cm of water with FiO2 of 60% and the patient is on a lactated Ringer at rate of 50 cc an hour. Chest x-ray was done this morning and it showed patchy infiltrates in lung bases more so on the right consistent with pneumonia. Most recent bronchoscopy yielded stenotrophomonas and the patient has grown Pseudomonas in the past. The patient is currently on IV Zosyn. He remains on DuoNeb nebulized treatments [id number]. He is on Symbicort. He is on IV Solu-Medrol. He is awake and alert and communicating. The white cell count is at 7 with hemoglobin of 10 and platelet count of 189. BUN is 27 with a creatinine of 1.36 and a sodium levels at 138. He is weak and quite debilitated on a chronic basis. Bactrim will be also added to his regimen. On 06/23/2024, the patient is still on Airvo at 35 L with an FiO2 of 50% with a pulse ox of 96%. Feels somewhat improved compared to yesterday. Continues to have a congested cough with limited amount of sputum production. Antibiotic modification was done yesterday and the patient is currently on a combination of Zosyn and IV Bactrim. Renal function remained stable. On today's blood work, the creatinine is at 1.24 with a BUN of 23. Rest of the electrolytes are all stable and within normal limits. White cell count of 5.3 with a hemoglobin of 9. A repeat chest x-ray from today shows some bibasilar pulmonary filtrates slightly worse on the left along with background COPD. Remains on bronchodilators. Remains on steroids. Remains on lactated Ringer at 50 cc an hour. Remains on Symbicort and DuoNeb updrafts [id number]. Home medications have been also resumed. 06/24/2024, the patient remains on Airvo 35 L with an FiO2 of 55%. The patient continues to have respiratory difficulties, cough, congestion, unable to bring up much of sputum. No significant improvement in respiratory status over the past 24 hours. The patient remains on a combination of IV Bactrim and IV Zosyn. The white cell count is at 8.1. Hemoglobin is 8.6 and a platelet count of 142. BUN is 25 with a creatinine of 1.22. He is getting progressively more debilitated and weak. Spending most of the time in bed. Oral intake is diminished and the patient had minimal amount of old. Earlier this morning. I plan to do a bronchoscopy on this patient in the afternoon to further optimize her respiratory status. Suspect mucous plugs. 06/25/2024, the patient is post bronchoscopy. The patient remains on Airvo 35 L with an FiO2 of 55%. Continues to struggle with his breathing. Cough and congestion is improved compared to yesterday post bronchoscopy. Repeat bronchoalveolar lavage was done and results are still pending. Most recent spu katt sample is showing [place], Aspergillus and stenotrophomonas. The patient remains on Bactrim IV. Remains on IV Solu-Medrol. Remains on DuoNeb nebulized treatments [id number]. The white cell count of 7.4 with a hemoglobin 9.5 and a platelet count of 197. Sodium is at 136, BUN 25 with a creatinine of 1.1. ID is on the case. No other new complaints otherwise for now. 06/26/2024, patient is being seen for a follow-up. The patient is sitting up in a chair. Awaiting the results from the bronchoscopy and bronchial lavage. Most recent sputum analysis was positive for stenotrophomonas in addition to Aspergillus and candidal elements. Earlier this morning, the patient was on Airvo. He was at 35 L with an FiO2 of 55%. I took him off the Airvo and I put him on 60 days of oxygen by nasal cannula and his current pulse ox 94%. He remains bronchospastic and wheezy. Awaiting consistent 0.8 edema 9.5 and a platelet count of 199. BUN is 25 with a creatinine of 1.09 and sodium levels at 135. Communicating. Awake. No chest pain. No other new complaints since yesterday. Awaiting results of the bronchial lavage and the patient remains on IV Bactrim. In terms of his renal function, the patient's creatinine is stable at 1.09. 06/27/2024, the patient continues to have labored breathing. After being on nasal cannula for yesterday, this patient became more short of breath this morning. Based on that, the patient was placed again on Airvo and the patient is currently on 50 L with FiO2 of 60%. Pulse ox in the order of 94 to 95%. He remains on IV Bactrim. Continues to encounter cough and congestion. Unable to bring up much of sputum. No chest pain. Looks quite lethargic and weak. His white cell count today is at 10.2 with a hemoglobin 9.9. BUN is 23 with a c reatinine of 1.1. Rest of the medication remains unchanged. Remains on IV Solu-Medrol. Remains on DuoNeb nebulized treatments [id number]. Symbicort will be discontinued and the patient was placed on a combination of Perforomist and Pulmicort. Oral intake remains quite diminished. 06/28/2024, the patient continues to struggle with his breathing. He remains on Airvo and is alternating it with a BiPAP. I am going to switch to BiPAP at a pressure of 10 over 5 cm of water and FiO2 of 50%. Meanwhile, this morning, he remains on Airvo and is currently on 50 L with an FiO2 of 60%. Congested cough. Remains bronchospastic and wheezy. Remains weak and debilitated. Oral intake remains quite diminished. Repeat arthroscopy and lavage yielded no microbial growth and the most recent cultures came back negative. Meanwhile, based on the earlier cultures of stenotrophomonas, the patient remains on Bactrim. Creatinine is stable at 1.2. Responded adequately to Lasix and the patient p roduced approximately 2.8 L of negative fluid balance over the past 24 hours. Potassium is at 4.8. WBC count is at 8.4 with hemoglobin 8.6. Chest x-ray findings are essentially unchanged and the patient has stable lower lobe pulmonary filtrates which are essentially unchanged. Seen today on 06/29/2024, patient is feeling better today, breathing easier. However he remains on Airvo with FiO2 of 60% and flow of 55 L/min. Patient is on antibiotics for his pneumonia and positive multi microbial cultures from his sputum and his BAL. This is being addressed accordingly, however the main organism seems to be Stenotrophomonas maltophilia WBC count is 9.8 hemoglobin is 9 basic metabolic profile is normal BUN is 24 creatinine 1.23. This x-ray from yesterday continues show bilateral extensive infiltrates specially at the bases of his right lung and left lung/lingula Patient was evaluated today on 06/30/2024, patient is basically about the same, continues to have cough, shortness of breath, significant amount of secretions, on 8 L high flow nasal cannula, patient is developing worsening electrolytes imbalance, renal functioning is not changing much creatinine 1.19, however his potassium is 5.8 sodium is 129 WBC 16.1. Chest x-ray continues to show significant airspace disease involving the left lower lobe and lingula as well as the right lower lobe, infectious disease is concerned about Bactrim with hyperkalemia, and recommending IV Levaquin instead. Patient was seen today on 07/01/2024, patient feels worse today, he is on Airvo at 70% FiO2 and 55 L flow, continues to have intermittent cough wheezing shortness of breath, cough is productive. His antibiotics were changed yes terday from Bactrim to Levaquin, being followed by infectious disease. 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 Basic metabolic profile is better potassium is down to 5.1 BUN is 28 creatinine 1.25. Family is at bedside, and I discussed his pulmonary status with the family Reevaluate today on 07/02/2024, patient is feeling a bit better today compared to yesterday. Breathing easier, CT of the chest was reviewed patient has significant COPD/emphysema and bilateral airspace disease patient remains on Levaquin, bronchodilators, and steroids, patient is also receiving multiple bronchodilators, some improvement but not back to baseline. Still requiring Airvo with high flow and high FiO2. WBC count today is 13.6 hemoglobin 9.8 basic metabolic profile is normal BUN is 30 creatinine 1.38 Patient was seen today on 07/03/2024, continues to steadily improve, however he remains on Airvo, 40 L flow and 60% FiO2 O2 saturation 96%. Less cough less wheezing less shortness of breath, he seems more comfortable today than he felt in the last few days. WBC count is 12.6 hemoglobin 8.9 basic metabolic profile is normal BUN is 27 creatinine 1.27, better today compared to yesterday. Patient remains on Levaquin Reevaluate today on 07/04/2024, patient continues to feel better today, however he is on relatively higher FiO2 and higher flow via Airvo. He is up to 65% and his flow is 50 L. Patient is comfortable, continues to have intermittent cough wheezing, cough is productive with yellow phlegm. No fever no chills no hemoptysis, remains on Levaquin. Patient was evaluated today on 07/05/2024, remains on Airvo, patient is doing well today, less cough less wheezing less shortness of breath remains on Levaquin. WBC count is 13.4 hemoglobin 9.3 basic metabolic profile is normal BUN is 32 creatinine 1.05 Progress note dated July 06, 2024. 79-year-old male who is now been in the hospital for 18 days. He was admitted with a diagnosis of acute on chronic respiratory failure. Currently, the patient is on Airvo, at 50 L/min with an FiO2 of 60%. He is not receiving any IV fluids. I last saw him on June 21, 2 weeks ago. Current labs include a white count of 16.6, hemoglobin 9.9, hematocrit 29.8, and a platelet count of 145,000. Sodium 133, potassium 4.8, chlorides 99, CO2 27, BUN 36, creatinine 0.95. Albumin is 2.8. Glucose is 197. Chest x-ray shows multifocal airspace opacities, previously unchanged from the x-ray on June 30. Objective - Vital Signs Vital signs: Vital Signs Temp 98.2 F 07/06/24 11:29 Pulse 86 07/06/24 11:29 Resp 30 H 07/06/24 12:25 BP 145/76 07/06/24 11:29 Pulse Ox 78 L 07/06/24 12:25 FiO2 59 07/06/24 12:25 Intake & Output 07/05/24 07/06/24 07/06/24 18:59 06:59 18:59 Intake Total 598 240 Output Total 750 750 700 Balance -152 -750 -460 Weight 52 kg Intake: Oral 598 240 Output: Urine 750 750 700 Other: Voiding Method Indwelling Catheter Indwelling Catheter Indwelling Catheter # Bowel Movements 1 - Exam Patient is very short of breath, with conversational dyspnea, and use of accessory muscles, currently on Airvo. HEENT examination is grossly unremarkable. Mucous membranes are moist. No oral lesions. Neck supple. Full range of motion. No adenopathy thyromegaly or neck vein distention. Cardiovascular examination reveals regular rhythm rate. S1-S2 normal. No S3 or S4. No discernible murmur noted. Heart sounds are distant. Lungs reveal scattered bilateral rhonchi and expiratory wheezes. No crackles. Breath sounds equal but diminished throughout. Abdomen soft and without bowel sounds. No masses or tenderness. Extremities are intact. No cyanosis clubbing or edema. Skin is without rash or lesion. Neurologic examination is brief but nonfocal. - Labs CBC & Chem 7: 07/06/24 07:40 07/06/24 07:40 Labs: Abnormal Lab Results - Last 24 Hours (Table) 07/05/24 07/05/24 07/06/24 Range/Units 16:37 20:11 05:54 WBC (3.8-10.6) k/uL RBC (4.30-5.90) m/uL Hgb (13.0-17.5) gm/dL Hct (39.0-53.0) % Plt Count (150-450) k/uL Sodium (137-145) mmol/L BUN (9-20) mg/dL Glucose (74-99) mg/dL POC Glucose (mg/dL) 218 H 193 H 211 H (70-110) mg/dL Total Protein (6.3-8.2) g/dL Albumin (3.5-5.0) g/dL 07/06/24 07/06/24 07/06/24 Range/Units 07:40 07:40 11:24 WBC 16.6 H (3.8-10.6) k/uL RBC 3.23 L (4.30-5.90) m/uL Hgb 9.9 L (13.0-17.5) gm/dL Hct 29.8 L (39.0-53.0) % Plt Count 145 L (150-450) k/uL Sodium 133 L (137-145) mmol/L BUN 36 H (9-20) mg/dL Glucose 191 H (74-99) mg/dL POC Glucose (mg/dL) 197 H (70-110) mg/dL Total Protein 5.0 L (6.3-8.2) g/dL Albumin 2.8 L (3.5-5.0) g/dL Assessment and Plan Assessment: Acute on chronic hypoxic respiratory failure secondary to an acute exacerbation of COPD. Frequent admissions for COPD exacerbation. Recent discharge on 06/07/2024. Rec ent bronchoscopy of 06/03/2024 revealed Stenotrophomonas maltophilia. Chronic and ongoing tobacco dependence Oxygen dependent chronic obstructive pulmonary disease with an FEV1 value 39% of predicted. Chronic tobacco dependence of greater than 60 years. Right upper lobe PET avid pulmonary nodule which is being monitored on outpatient basis. History of non-Hodgkin's lymphoma. Chronic stage III kidney disease. Coronary disease with previous coronary artery bypass surgery in 2001. History of abdominal aortic aneurysm status post stent placement in March 2022. Carotid stenosis S/P endarterectomy. History of ESBL E. coli in 2021. Hyperlipidemia. Hypertension. Plan: Plan dated June 21, 2024. The patient is transferred to the intensive care unit, as a 3 S. overflow. He is placed on BiPAP, with settings of 16/5, and 50%. Blood gases have been ordered as well as a chest x-ray. The patient received some Ativan for sedation and anxiety control. He is getting lactated Ringer's at 50 cc an hour. I confirmed with the nurses that the patient is a DO NOT INTUBATE patient. Labs, x-rays, and all medications are reviewed. The patient's overall prognosis remains poor. He has severe COPD with an FEV1 that is only 39% of predicted. Plan dated July 06, 2024. I saw the patient last 2 weeks ago. The patient was on BiPAP at that time. Currently he is on Airvo, at 50 L/min, with an FiO2 60%. He is not receiving any IV fluids. Labs, x-rays, and all medications are reviewed. The patient's overall prognosis remains very guarded. Patient continues on Levaquin, as per infectious diseases. The rest of his medications are appropriate. The patient is a DO NOT INTUBATE patient. We will continue to follow make recommendations along the way. Time with Patient: Less than 30
--- NOTE | 2024-07-06 13:35 | P.PN ---
Subjective Progress Note Date: 07/06/24 Hospital course: Patient is a very pleasant 79-year-old male with a past medical history of systolic CHF with EF 40 to 45%, COPD on 3L home O2, chronic kidney disease, hypertension, hyperlipidemia, non-Hodgkins lymphoma, CAD with CABG, AAA with stent, carotid stenosis with endarterectomy presents to the ED for shortness of breath. Apparently his O2 sat was in the 70s when EMS arrived on his 3L NC. Recently admitted from 06/05-06/07 for similar complaints, COVID + at that time, treated with bronchodilators, Zosyn, SoluMedrol and discharged on a Prednisone taper and to complete a course of Ciprofloxacin. He recently underwent bronchoscopy with BAL with Dr. Cano on 05/13 with cultures resulting in Pseudomonas and eden albicans. He was started on Ciprofloxacin at that time. He underwent repeat bronchoscopy with BAL with Dr. Cano on 06/03 which grew stenotrophomonas maltophilia. He was continued on Ciprofloxacin and according to the patient has been taking it over the past 5-6 weeks. In the ED he underwent extensive evaluation. Tmax 100F, BP 119/62, HR 102, RR 40, 91% on 3L. CBC, Coag panel, CMP significant for RBC 4, Hg 12.4, Hct 35.8, PT 9.9, bicarb 33, BUN 39, Cr 1.91, glu 131. Lactic acid 2.9. Troponin 0.054. EKG sinus tachycardia with RBBB. CXR showed COPD with patchy interstitial densities increased from previous CXRs. Patient is admitted for further workup and management. Patient seen by pulmonology and started on IV Zosyn and Bactrim. Patient also on IV steroids. Patient was on BiPAP. Patient weaned down to Airvo. Patient had another bronchoscopy done on 06/24/2024 that showed tracheobronchomalacia with copious thick secretions and mucous plugging. Sputum culture obtained at this time showing Aspergillus fumigatus, stenotrophomonas maltophilia, and Eden albicans. Patient currently on Bactrim 352 mg IVPB every 8 hours. Physical exam: Patient was seen and fully evaluated at bedside this morning. Patient reports breathing unchanged from yesterday but does appear to be more dyspneic this morning send upon evaluation yesterday. He remains on Airvo 50 L with FiO2 of 60%. Patient reports he continues to use his flutter valve as previously instructed. He reports decreased sputum production with coughing. He denies any other complaints at this time. Vital signs reviewed and stable. General: Nontoxic, no distress and appears stated age. Derm: Skin warm and dry, normal coloration for ethnicity. Head: Atraumatic, normocephalic and symmetric. Eyes: EOM's intact, no lid lag, and anicteric sclera Mouth: no lip lesions, mucus membranes moist Cardiovascular: regular rate and rhythm with normal S1S2, systolic murmur, positive posterior tibial pulses bilaterally, and cap refill < 2 seconds. Lungs: Respirations even, regular, and unlabored on Airvo. Lungs diminished with bibasilar crackles and expiratory wheezes. No rhonchi or rails noted this morning. Abdominal: soft, nontender to palpation, no guarding, no appreciable organomegaly Ext: ROM intact. No gross muscle atrophy, no edema, no contractures Neuro: Speech clear, face symmetrical and CN II-XII grossly intact with no noted focal neuro deficits Psych: Alert and oriented to person, place, time, and situation. Appropriate and pleasant affect. Assessment and Plan of Care: Acute on chronic hypoxic respiratory failure, likely from COVID sequelae complicated by development of pseudomonas and stenotropomonas maltophilia pneumonia Sepsis upon admission, secondary to above Acute on chronic COPD exacerbation, secondary to above Generalized weakness and fatigue secondary to physical decomposition resulting from prolonged hospitalization -Patient underwent 9-day course of IV antibiotics with Bactrim and secondary to hyperkalemia Bactrim was discontinued and on 06/30/24 patient was started on Levaquin 750 mg IVPB every 48 hours. -Continue with supplemental oxygen maintain SpO2 equal to or greater than 90%. Patient currently remains on Airvo. Wean O2 as tolerated -Sputum culture positive for aspergillus fumigatus, stenotrophomonas maltophilia, and Eden albicans. Repeat cultures from bronchoscopy 06/27/2024 negative showing no growth. -Infectious disease following, reviewed documentation in chart.. -Pulmonology following, took patient for bronchoscopy with BAL on 06/24/2024 which revealed tracheobronchomalacia with copious thick secretions and mucous plugging. Reviewed documentation in chart. -Continue with Symbicort 2 puffs INH BID. DuoNebs scheduled Q4H and as needed for wheezing/shortness of breath. Singulair 10 mg PO HS, and IV steroids with SoluMedrol 60 mg IV Q8H. -CT chest was completed showing small right pleural effusion and moderate to severe emphysema with right lower lobe 13 mm pulmonary nodule. -PT/OT following Pulmonary nodule, incidental finding on CT. Recommend outpatient close monitoring/surveillance with repeat CT in 3 months. Hyponatremia. Stable at 132 this morning. Hyerkalemia. Hyperkalemia likely secondary to Bactrim and resolved after discontinuation of Bactrim and starting patient on Levaquin. Elevated troponin. Troponins flat and ACS ruled out. Continue with ASA 81 mg PO QD. Lipitor 40 mg PO QHS. Plavix 75 mg PO QD. Metoprolol 25 mg PO QD. 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 Hemoglobin A1c 7.3. Continue glycemic protocol with NovoLog sliding scale insulin and scheduled NovoLog 8 units 3 times daily with meals Acute kidney injury on CKD stage IIIa. Resolved. Initially presented with BRITT with BUN of 39, creatinine of 1.91, and GFR of 32. BRITT resolved and renal function back at baseline with BUN of 32, creatinine 1.05, GFR of 67. Lactic acidosis. Resolved Acute blood loss anemia. Patient's hemoglobin was trending down and subcu Lovenox for DVT prophylaxis was discontinued and orders placed for SCDs. Today hemoglobin is 9.3 and stable. Patient at this time is too unstable for any en doscopic procedures Chronic conditions: Systolic CHF with EF 40-45%: Appears euvolemic. Hypertension: Continue metoprolol 25 mg daily. Dyslipidemia: Continue Lipitor 40 mg nightly. Non-Hodgkins lymphoma. 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 CAD with CABG: Continue daily cardiac medication regimen with aspirin 81 mg daily, Lipitor 40 mg nightly, Plavix 75 mg daily, and metoprolol 25 mg daily. Carotid stenosis with endarterectomy: Continue daily medication regimen with aspirin 81 mg daily, Lipitor 40 mg nightly, and Plavix 75 mg daily. Data and imaging reviewed: Morning labs reviewed. CBC showing leukocytosis with WBC count of 13.4 and stable hemoglobin of 9.3. BMP showing mild hyponatremia with sodium of 132, elevated BUN of 32, creatinine of 1.05, GFR 67. Blood glucose was 180. Magnesium 1.8. Liver profile normal findings. Albumin was low at 2.7. Repeat morning chest x-ray showing similar multifocal airspace opacities unch anged from previous x-ray completed 06/30/2024. Documented urinary output over the past 24 hours was 1500 cc Vital signs reviewed. Blood pressure blood pressure 137/76, heart rate 86, respiratory rate 20, temp 98.2 F, and SpO2 of 97% on Airvo with 60% FiO2 and 50 L.. Prognosis remains guarded. CODE STATUS: Full code with instructions, no intubation DVT prophylaxis: SCDs Anticipated discharge date: Pending clinical course Anticipated discharge place: Pending clinical course Patient was seen independently by Nurse Pracitioner. This document was prepared using [employer] dictation software. Please allow for errors in department coordinator, while rare they do occur. I reviewed the documentation as provided by the MICHELE above, who is the original author of this note. I agree with the documented assessment and plan, with the following changes: none Objective - Vital Signs Vital signs: Vital Signs Temp 98.6 F 07/06/24 03:30 Pulse 87 07/06/24 03:30 Resp 18 07/06/24 03:30 BP 133/67 07/06/24 03:30 Pulse Ox 97 07/06/24 03:30 FiO2 60 07/06/24 03:57 Intake & Output 07/05/24 07/06/24 07/06/24 18:59 06:59 18:59 Intake Total 598 Output Total 750 750 Balance -152 -750 Weight 52 kg Intake: Oral 598 Output: Urine 750 750 Other: Voiding Method Indwelling Catheter Indwelling Catheter - Labs CBC & Chem 7: 07/06/24 07:40 07/06/24 07:40 Labs: Abnormal Lab Results - Last 24 Hours (Table) 07/05/24 07/05/24 07/05/24 Range/Units 07:07 11:37 16:37 Sodium 132 L (137-145) mmol/L Carbon Dioxide 31 H (22-30) mmol/L BUN 32 H (9-20) mg/dL Glucose 180 H (74-99) mg/dL POC Glucose (mg/dL) 206 H 218 H (70-110) mg/dL Calcium 8.2 L (8.4-10.2) mg/dL Total Protein 4.6 L (6.3-8.2) g/dL Albumin 2.6 L (3.5-5.0) g/dL 07/05/24 07/06/24 Range/Units 20:11 05:54 Sodium (137-145) mmol/L Carbon Dioxide (22-30) mmol/L BUN (9-20) mg/dL Glucose (74-99) mg/dL POC Glucose (mg/dL) 193 H 211 H (70-110) mg/dL Calcium (8.4-10.2) mg/dL Total Protein (6.3-8.2) g/dL Albumin (3.5-5.0) g/dL
[2024-07-06] MEDS: FUROSEMIDE 10 MG/ML 4 ML VIAL IV STA (14:05)
[2024-07-06 16:31] LABS: Glucose,Whole Blood 196 mg/dL (70-110)
[2024-07-06 20:07] LABS: Glucose,Whole Blood 222 mg/dL (70-110)
[2024-07-07 05:58] LABS: Glucose,Whole Blood 211 mg/dL (70-110)
[2024-07-07 06:46] LABS: HCT 27.5 % (39.0-53.0); HGB 9.3 gm/dL (13.0-17.5); MCH 30.9 pg (25.0-35.0); MCHC 33.7 g/dL (31.0-37.0); MCV 91.7 fL (80.0-100.0); Mean Platelet Volume 9.1; Platelet Count 119 k/uL (150-450); RDW 15.5 % (11.5-15.5); WBC 13.4 k/uL (3.8-10.6)
[2024-07-07 07:11] LABS: ALT 29 U/L (4-49); AST 31 U/L (17-59); African American GFR (CKD) 81 (>60 ml/min/1.73 sqM); Albumin 2.6 g/dL (3.5-5.0); Alkaline Phosphatase 116 U/L (38-126); Anion Gap 3 mmol/L; Blood Urea Nitrogen 41 mg/dL (9-20); Calcium 8.2 mg/dL (8.4-10.2); Carbon Dioxide 32 mmol/L (22-30); Chloride 99 mmol/L (98-107); Glucose 200 mg/dL (74-99); Magnesium 1.6 mg/dL (1.6-2.3); Non-African American GFR(CKD) 70 (>60 ml/min/1.73 sqM); Potassium 4.3 mmol/L (3.5-5.1); Sodium 134 mmol/L (137-145); Total Bilirubin 0.4 mg/dL (0.2-1.3); Total Protein 4.6 g/dL (6.3-8.2)
--- NOTE | 2024-07-07 11:35 | P.PN ---
Subjective Progress Note Date: 07/07/24 Principal diagnosis: COPD exacerbation. This is a very pleasant 79-year-old male patient who has a history of chronic and ongoing tobacco dependence, severe COPD maintained on a combination of Wixela and Spiriva on an outpatient basis. His previous pulmonary function test from 2020 has shown as an FEV1 of 39% of predicted at baseline. He is also oxygen dependent and utilizes oxygen on and off as requirement of oxygen becomes more needed whenever he gets an acute exacerbation. He has class III/IV chronic exertional dyspnea. He is also being monitored for a right upper lobe pulmonary nodule which is measuring 1.1 cm in size there was noted to be PET avid. Based on his advanced COPD and limited performance status he was recommended continue surveillance of this pulmonary nodule and decide at the later stage if SBRT would be of any benefit for this patient. He is also known to have coronary artery disease, has undergone previous coronary bypass surgery. He has also undergone previous stenting to SVG to RCA. Other comorbidities include hypertension, hyperlipidemia, previous history of non-Hodgkin's lymphoma treated with rituximab and the patient has carotid artery disease, abdominal aortic aneurysm with previous endovascular stent grafting and the patient has a aorto by iliac endovascular graft along with previous history of a upper GI bleed related to a duodenal ulcer which resulted into significant blood loss anemia. He has had frequent readmissions to the hospital. Recently discharged on June 07, 2024. His most recent bronchoscopy was performed on 06/03/2024 and was found to have Stenotrophomonas maltophilia and was treated with Ciprofloxa mindy. He came back to the emergency room yesterday 06/18/2024 with complaints of increasing shortness of breath, cough and congestion. Chest x-ray reveals interstitial opacities bilaterally. No pleural effusion. Mild hyperinflation. White count 6.2. Hemoglobin 12.4. Platelets 204. Sodium 139. Potassium 3.7. Bicarb 33. BUN 39. Creatinine 1.91. Glucose 131. Troponin 0.043. proBNP 571 . Procalcitonin 0.29. He has been initiated on DuoNeb inhalations, Symbicort, prednisone taper. Antibiotics in the form of Zosyn. Lovenox for DVT prophylaxis. He is seen in consultation on the regular medical floor. Currently sitting up in bed. He is dyspneic with conversation. Dyspneic with minimal exertion. Admits to still smoking 2 to 3 cigarettes a day. Currently maintaining O2 saturations in the 90s on 3 L/min per nasal cannula. He has been afebrile. Hemodynamically stable. The patient is seen today June 20, 2024 in follow-up on the regular medical floor. He is currently resting in bed. Awake and alert in no acute distress. He is breathing a bit easier today compared to yesterday. His only complaint is of sinus congestion. He is maintaining good O2 saturations in the 90s on 3 L/min per nasal cannula. No IV fluids. Blood and sputum cultures revealing no growth to date. Glucose 180. He is continued on DuoNeb and elations, Symbicort, Singulair, prednisone taper. Lovenox for DVT prophylaxis. Progress note dated June 21, 2024. This is an 79-year-old male with a history of severe COPD. FEV1 is 39% of predicted. Unfortunately, the patient does continue to smoke cigarettes. He was admitted with a diagnosis of COPD exacerbation. This morning, a rapid response team was called to this patient's bed, in room 476. The patient was very short of breath. He was placed on BiPAP, 12/5 and 40%. Blood gases were ordered. A chest x-ray was ordered. He received some Ativan and Xanax. He is getting lactated Ringer's at 50 cc an hour. The patient is a DO NOT INTUBATE patient. White count 11.6, hemoglobin 12.4, hematocrit 36.3, platelet count normal. Repeat blood gases show pO2 of 52, pCO2 of 35, and a pH of 7.49. At this point, the BiPAP was changed to 16/5. The FiO2 was increased to 50%. Sodium 143, potassium 4.3, chlorides 108, CO2 29, BUN 22, creatinine 1.30. Calcium is 8.8. Sputum and blood sampling has been negative thus far. Chest x- ray shows changes of COPD, without evidence of airspace consolidation. On 06/22/2024, the patient is being seen for a follow-up. This morning, the patient is on a BiPAP pressure of 16 over 5 cm of water with FiO2 of 60% and the patient is on a lactated Ringer at rate of 50 cc an hour. Chest x-ray was done this morning and it showed patchy infiltrates in lung bases more so on the right consistent with pneumonia. Most recent bronchoscopy yielded stenotrophomonas and the patient has grown Pseudomonas in the past. The patient is currently on IV Zosyn. He remains on DuoNeb nebulized treatments [id number]. He is on Symbicort. He is on IV Solu-Medrol. He is awake and alert and communicating. The white cell count is at 7 with hemoglobin of 10 and platelet count of 189. BUN is 27 with a creatinine of 1.36 and a sodium levels at 138. He is weak and quite debilitated on a chronic basis. Bactrim will be also added to his regimen. On 06/23/2024, the patient is still on Airvo at 35 L with an FiO2 of 50% with a pulse ox of 96%. Feels somewhat improved compared to yesterday. Continues to have a congested cough with limited amount of sputum production. Antibiotic modification was done yesterday and the patient is currently on a combination of Zosyn and IV Bactrim. Renal function remained stable. On today's blood work, the creatinine is at 1.24 with a BUN of 23. Rest of the electrolytes are all stable and within normal limits. White cell count of 5.3 with a hemoglobin of 9. A repeat chest x-ray from today shows some bibasilar pulmonary filtrates slightly worse on the left along with background COPD. Remains on bronchodilators. Remains on steroids. Remains on lactated Ringer at 50 cc an hour. Remains on Symbicort and DuoNeb updrafts [id number]. Home medications have been also resumed. 06/24/2024, the patient remains on Airvo 35 L with an FiO2 of 55%. The patient continues to have respiratory difficulties, cough, congestion, unable to bring up much of sputum. No significant improvement in respiratory status over the past 24 hours. The patient remains on a combination of IV Bactrim and IV Zosyn. The white cell count is at 8.1. Hemoglobin is 8.6 and a platelet count of 142. BUN is 25 with a creatinine of 1.22. He is getting progressively more debilitated and weak. Spending most of the time in bed. Oral intake is diminished and the patient had minimal amount of old. Earlier this morning. I plan to do a bronchoscopy on this patient in the afternoon to further optimize her respiratory status. Suspect mucous plugs. 06/25/2024, the patient is post bronchoscopy. The patient remains on Airvo 35 L with an FiO2 of 55%. Continues to struggle with his breathing. Cough and congestion is improved compared to yesterday post bronchoscopy. Repeat bronchoalveolar lavage was done and results are still pending. Most recent spu katt sample is showing Eden, Aspergillus and stenotrophomonas. The patient remains on Bactrim IV. Remains on IV Solu-Medrol. Remains on DuoNeb nebulized treatments [id number]. The white cell count of 7.4 with a hemoglobin 9.5 and a platelet count of 197. Sodium is at 136, BUN 25 with a creatinine of 1.1. ID is on the case. No other new complaints otherwise for now. 06/26/2024, patient is being seen for a follow-up. The patient is sitting up in a chair. Awaiting the results from the bronchoscopy and bronchial lavage. Most recent sputum analysis was positive for stenotrophomonas in addition to Aspergillus and candidal elements. Earlier this morning, the patient was on Airvo. He was at 35 L with an FiO2 of 55%. I took him off the Airvo and I put him on 60 days of oxygen by nasal cannula and his current pulse ox 94%. He remains bronchospastic and wheezy. Awaiting consistent 0.8 edema 9.5 and a platelet count of 199. BUN is 25 with a creatinine of 1.09 and sodium levels at 135. Communicating. Awake. No chest pain. No other new complaints since yesterday. Awaiting results of the bronchial lavage and the patient remains on IV Bactrim. In terms of his renal function, the patient's creatinine is stable at 1.09. 06/27/2024, the patient continues to have labored breathing. After being on nasal cannula for yesterday, this patient became more short of breath this morning. Based on that, the patient was placed again on Airvo and the patient is currently on 50 L with FiO2 of 60%. Pulse ox in the order of 94 to 95%. He remains on IV Bactrim. Continues to encounter cough and congestion. Unable to bring up much of sputum. No chest pain. Looks quite lethargic and weak. His white cell count today is at 10.2 with a hemoglobin 9.9. BUN is 23 with a c reatinine of 1.1. Rest of the medication remains unchanged. Remains on IV Solu-Medrol. Remains on DuoNeb nebulized treatments [id number]. Symbicort will be discontinued and the patient was placed on a combination of Perforomist and Pulmicort. Oral intake remains quite diminished. 06/28/2024, the patient continues to struggle with his breathing. He remains on Airvo and is alternating it with a BiPAP. I am going to switch to BiPAP at a pressure of 10 over 5 cm of water and FiO2 of 50%. Meanwhile, this morning, he remains on Airvo and is currently on 50 L with an FiO2 of 60%. Congested cough. Remains bronchospastic and wheezy. Remains weak and debilitated. Oral intake remains quite diminished. Repeat arthroscopy and lavage yielded no microbial growth and the most recent cultures came back negative. Meanwhile, based on the earlier cultures of stenotrophomonas, the patient remains on Bactrim. Creatinine is stable at 1.2. Responded adequately to Lasix and the patient p roduced approximately 2.8 L of negative fluid balance over the past 24 hours. Potassium is at 4.8. WBC count is at 8.4 with hemoglobin 8.6. Chest x-ray findings are essentially unchanged and the patient has stable lower lobe pulmonary filtrates which are essentially unchanged. Seen today on 06/29/2024, patient is feeling better today, breathing easier. However he remains on Airvo with FiO2 of 60% and flow of 55 L/min. Patient is on antibiotics for his pneumonia and positive multi microbial cultures from his sputum and his BAL. This is being addressed accordingly, however the main organism seems to be Stenotrophomonas maltophilia WBC count is 9.8 hemoglobin is 9 basic metabolic profile is normal BUN is 24 creatinine 1.23. This x-ray from yesterday continues show bilateral extensive infiltrates specially at the bases of his right lung and left lung/lingula Patient was evaluated today on 06/30/2024, patient is basically about the same, continues to have cough, shortness of breath, significant amount of secretions, on 8 L high flow nasal cannula, patient is developing worsening electrolytes imbalance, renal functioning is not changing much creatinine 1.19, however his potassium is 5.8 sodium is 129 WBC 16.1. Chest x-ray continues to show significant airspace disease involving the left lower lobe and lingula as well as the right lower lobe, infectious disease is concerned about Bactrim with hyperkalemia, and recommending IV Levaquin instead. Patient was seen today on 07/01/2024, patient feels worse today, he is on Airvo at 70% FiO2 and 55 L flow, continues to have intermittent cough wheezing shortness of breath, cough is productive. His antibiotics were changed yes terday from Bactrim to Levaquin, being followed by infectious disease. 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 Basic metabolic profile is better potassium is down to 5.1 BUN is 28 creatinine 1.25. Family is at bedside, and I discussed his pulmonary status with the family Reevaluate today on 07/02/2024, patient is feeling a bit better today compared to yesterday. Breathing easier, CT of the chest was reviewed patient has significant COPD/emphysema and bilateral airspace disease patient remains on Levaquin, bronchodilators, and steroids, patient is also receiving multiple bronchodilators, some improvement but not back to baseline. Still requiring Airvo with high flow and high FiO2. WBC count today is 13.6 hemoglobin 9.8 basic metabolic profile is normal BUN is 30 creatinine 1.38 Patient was seen today on 07/03/2024, continues to steadily improve, however he remains on Airvo, 40 L flow and 60% FiO2 O2 saturation 96%. Less cough less wheezing less shortness of breath, he seems more comfortable today than he felt in the last few days. WBC count is 12.6 hemoglobin 8.9 basic metabolic profile is normal BUN is 27 creatinine 1.27, better today compared to yesterday. Patient remains on Levaquin Reevaluate today on 07/04/2024, patient continues to feel better today, however he is on relatively higher FiO2 and higher flow via Airvo. He is up to 65% and his flow is 50 L. Patient is comfortable, continues to have intermittent cough wheezing, cough is productive with yellow phlegm. No fever no chills no hemoptysis, remains on Levaquin. Patient was evaluated today on 07/05/2024, remains on Airvo, patient is doing well today, less cough less wheezing less shortness of breath remains on Levaquin. WBC count is 13.4 hemoglobin 9.3 basic metabolic profile is normal BUN is 32 creatinine 1.05 Progress note dated July 06, 2024. 79-year-old male who is now been in the hospital for 18 days. He was admitted with a diagnosis of acute on chronic respiratory failure. Currently, the patient is on Airvo, at 50 L/min with an FiO2 of 60%. He is not receiving any IV fluids. I last saw him on June 21, 2 weeks ago. Current labs include a white count of 16.6, hemoglobin 9.9, hematocrit 29.8, and a platelet count of 145,000. Sodium 133, potassium 4.8, chlorides 99, CO2 27, BUN 36, creatinine 0.95. Albumin is 2.8. Glucose is 197. Chest x-ray shows multifocal airspace opacities, previously unchanged from the x-ray on June 30. Progress note dated July 07, 2024. 79-year-old male seen in room 363. He has not been in the hospital for 19 days. The patient continues on Airvo, with settings of 60 L/min, and an FiO2 of 94%. He is not receiving any IV fluids. The patient is receiving albuterol sulfate and ipratropium breathing treatments, Solu-Medrol, budesonide, formoterol, and also Levaquin. The patient complains of difficulty breathing. He is currently laying flat in bed. White count 13.4, hemoglobin 9.3, hematocrit 27.5, platelet count of 119,000. Sodium 134, potassium 4.3, chloride 99, CO2 32, BUN 41, creatinine 1. Albumin is 2.6. Chest x-ray from July 06, shows multifocal airspace opacities, which are unchanged. Objective - Vital Signs Vital signs: Vital Signs Temp 97.1 F L 07/07/24 07:36 Pulse 90 07/07/24 11:22 Resp 19 07/07/24 07:47 BP 125/61 07/07/24 07:36 Pulse Ox 97 07/07/24 11:26 FiO2 93 07/07/24 11:26 Intake & Output 07/06/24 07/07/24 07/07/24 18:59 06:59 18:59 Intake Total 1320 540 Output Total 2150 1000 Balance -830 -460 Weight 53 kg Intake: Oral 1320 540 Output: Urine 2150 1000 Other: Voiding Method Indwelling Catheter Indwelling Catheter Indwelling Catheter # Bowel Movements 1 - Exam Patient is very short of breath, with conversational dyspnea, and use of accessory muscles, currently on AIRVO. HEENT examination is grossly unremarkable. Mucous membranes are moist. No oral lesions. Neck supple. Full range of motion. No adenopathy thyromegaly or neck vein distention. Cardiovascular examination reveals regular rhythm rate. S1-S2 normal. No S3 or S4. No discernible murmur noted. Heart sounds are distant. Lungs reveal scattered bilateral rhonchi and expiratory wheezes. No crackles. Breath sounds equal but diminished throughout. Abdomen soft and without bowel sounds. No masses or tenderness. Extremities are intact. No cyanosis clubbing or edema. Skin is without rash or lesion. Neurologic examination is brief but nonfocal. - Labs CBC & Chem 7: 07/07/24 06:00 07/07/24 06:00 Labs: Abnormal Lab Results - Last 24 Hours (Table) 07/06/24 07/06/24 07/07/24 Range/Units 16:29 20:06 05:56 WBC (3.8-10.6) k/uL RBC (4.30-5.90) m/uL Hgb (13.0-17.5) gm/dL Hct (39.0-53.0) % Plt Count (150-450) k/uL Sodium (137-145) mmol/L Carbon Dioxide (22-30) mmol/L BUN (9-20) mg/dL Glucose (74-99) mg/dL POC Glucose (mg/dL) 196 H 222 H 211 H (70-110) mg/dL Calcium (8.4-10.2) mg/dL Total Protein (6.3-8.2) g/dL Albumin (3.5-5.0) g/dL 07/07/24 07/07/24 Range/Units 06:00 06:00 WBC 13.4 H (3.8-10.6) k/uL RBC 3.00 L (4.30-5.90) m/uL Hgb 9.3 L (13.0-17.5) gm/dL Hct 27.5 L (39.0-53.0) % Plt Count 119 L (150-450) k/uL Sodium 134 L (137-145) mmol/L Carbon Dioxide 32 H (22-30) mmol/L BUN 41 H (9-20) mg/dL Glucose 200 H (74-99) mg/dL POC Glucose (mg/dL) (70-110) mg/dL Calcium 8.2 L (8.4-10.2) mg/dL Total Protein 4.6 L (6.3-8.2) g/dL Albumin 2.6 L (3.5-5.0) g/dL Assessment and Plan Assessment: Acute on chronic hypoxic respiratory failure secondary to an acute exacerbation of COPD. Frequent admissions for COPD exacerbation. Recent discharge on 06/07/2024. Recent bronchoscopy of 06/03/2024 revealed Stenotrophomonas maltophilia. Chronic and ongoing tobacco dependence Oxygen dependent chronic obstructive pulmonary disease with an FEV1 value 39% of predicted. Chronic tobacco dependence of greater than 60 years. Right upper lobe PET avid pulmonary nodule which is being monitored on outpatient basis. History of non-Hodgkin's lymphoma. Chronic stage III kidney disease. Coronary disease with previous coronary artery bypass surgery in 2001. History of abdominal aortic aneurysm status post stent placement in March 2022. Carotid stenosis S/P endarterectomy. History of ESBL E. coli in BAL, 2021. Hyperlipidemia. Hypertension. Plan: Plan dated June 21, 2024. The patient is transferred to the intensive care unit, as a 3 S. overflow. He is placed on BiPAP, with settings of 16/5, and 50%. Blood gases have been ordered as well as a chest x-ray. The patient received some Ativan for sedation and anxiety control. He is getting lactated Ringer's at 50 cc an hour. I confirmed with the nurses that the patient is a DO NOT INTUBATE patient. Labs, x-rays, and all medications are reviewed. The patient's overall prognosis remains poor. He has severe COPD with an FEV1 that is only 39% of predicted. Plan dated July 06, 2024. I saw the patient last 2 weeks ago. The patient was on BiPAP at that time. Currently he is on Airvo, at 50 L/min, with an FiO2 60%. He is not receiving any IV fluids. Labs, x-rays, and all medications are reviewed. The patient's overall prognosis remains very guarded. Patient continues on Levaquin, as per infectious diseases. The rest of his medications are appropriate. The patient is a DO NOT INTUBATE patient. We will continue to follow make recommendations along the way. Plan dated July 07, 2024. The patient is seen in room 363. He continues on Airvo, with settings of 60 L/min with an FiO2 of 94%. The patient continues on all appropriate medications including updrafts with albuterol sulfate and ipratropium bromide, updrafts with budesonide, and formoterol, Levaquin, and Solu-Medrol. Labs, x-rays, and medications are reviewed. We will continue to follow. The patient is not to be intubated. Prognosis is poor. Time with Patient: Less than 30
[2024-07-07 11:41] VITALS: BMI 18.8
[2024-07-07 11:56] LABS: Glucose,Whole Blood 134 mg/dL (70-110)
--- NOTE | 2024-07-07 13:11 | P.PN ---
Subjective Progress Note Date: 07/07/24 Principal diagnosis: Reason for follow-up is pneumonia Patient is a 79-year-old male with a past medical history significant for non-Hodgkin lymphoma COPD hypertension hyperlipidemia heart failure recently diagnosed with a COVID-19 presented to hospital for evaluation of increasing shortness of breath and cough sputum production did have patient evaluated on the chest x-ray concerning for pneumonia. On today's evaluation that is 07/07/2024, Patient is afebrile this morning patient did have a problem with shortness of breath this morning and low O2 sats and has required nonrebreather currently he is on Airvo 84% FiO2 patient denies having any chest pain no worsening cough or sputum production abdominal pain or diarrhea. The patient white count is 13.4 creatinine is 1.0 repeat cultures has been negative Objective - Vital Signs Vital signs: Vital Signs Temp 97.8 F 07/07/24 12:00 Pulse 86 07/07/24 12:57 Resp 19 07/07/24 12:57 BP 125/61 07/07/24 07:36 Pulse Ox 97 07/07/24 11:26 FiO2 84 07/07/24 12:00 Intake & Output 07/06/24 07/07/24 07/07/24 18:59 06:59 18:59 Intake Total 1320 540 Output Total 2150 1000 475 Balance -596 -995 -745 Weight 53 kg 53 kg Intake: Oral 1320 540 Output: Urine 2150 1000 475 Other: Voiding Method Indwelling Catheter Indwelling Catheter Indwelling Catheter # Bowel Movements 1 - Exam GENERAL DESCRIPTION: An elderly male up in bed in no distress RESPIRATORY SYSTEM: Unlabored breathing , coarse breath sounds bilaterally HEART: S1 S2 regular rate and rhythm , ABDOMEN: Soft , no tenderness EXTREMITIES: No edema feet - Labs CBC & Chem 7: 07/07/24 06:00 07/07/24 06:00 Labs: Abnormal Lab Results - Last 24 Hours (Table) 07/06/24 07/06/24 07/07/24 Range/Units 16:29 20:06 05:56 WBC (3.8-10.6) k/uL RBC (4.30-5.90) m/uL Hgb (13.0-17.5) gm/dL Hct (39.0-53.0) % Plt Count (150-450) k/uL Sodium (137-145) mmol/L Carbon Dioxide (22-30) mmol/L BUN (9-20) mg/dL Glucose (74-99) mg/dL POC Glucose (mg/dL) 196 H 222 H 211 H (70-110) mg/dL Calcium (8.4-10.2) mg/dL Total Protein (6.3-8.2) g/dL Albumin (3.5-5.0) g/dL 07/07/24 07/07/24 07/07/24 Range/Units 06:00 06:00 11:53 WBC 13.4 H (3.8-10.6) k/uL RBC 3.00 L (4.30-5.90) m/uL Hgb 9.3 L (13.0-17.5) gm/dL Hct 27.5 L (39.0-53.0) % Plt Count 119 L (150-450) k/uL Sodium 134 L (137-145) mmol/L Carbon Dioxide 32 H (22-30) mmol/L BUN 41 H (9-20) mg/dL Glucose 200 H (74-99) mg/dL POC Glucose (mg/dL) 134 H (70-110) mg/dL Calcium 8.2 L (8.4-10.2) mg/dL Total Protein 4.6 L (6.3-8.2) g/dL Albumin 2.6 L (3.5-5.0) g/dL Assessment and Plan (1) Pneumonia Current Visit: Yes Status: Acute Code(s): J18.9 - PNEUMONIA, UNSPECIFIED ORGANISM SNOMED Code(s): 034238256 (2) Sepsis Current Visit: No Status: Acute Code(s): A41.9 - SEPSIS, UNSPECIFIED ORGANISM SNOMED Code(s): 38403217 Plan: 1patient presented to hospital with sepsis in this patient who did have fever tachycardia mild hypotension source is likely pneumonia in this patient who recently did have a COVID-19 will need to cover for resistant gram negative to be the likely etiology and the patient recently grew Pseudomonas in his BAL culture 2-blood cultures are so far negative initial sputum has been negative, urine for Legionella antigen was negative mycoplasma IgM not elevated, repeat sputum is growing stenotrophomonas as well as Aspergillus and Eden 3 Aspergillus CF antibodies came back negative, and Aspergillus galactomannan requested but no results 4patient remains to be afebrile still requiring high flow nasal oxygen white count seem to have been trending down remains to be on Levaquin and will monitor clinical course closely prognosis remains to be guarded Son at the bedside question answered Dictation was produced using [employer] dictation software. please excuse any g rammatical, word or spelling errors. Time with Patient: Less than 30
--- NOTE | 2024-07-07 14:39 | P.PN ---
Subjective Progress Note Date: 07/07/24 Hospital course: Patient is a very pleasant 79-year-old male with a past medical history of systolic CHF with EF 40 to 45%, COPD on 3L home O2, chronic kidney disease, hypertension, hyperlipidemia, non-Hodgkins lymphoma, CAD with CABG, AAA with stent, carotid stenosis with endarterectomy presents to the ED for shortness of breath. Apparently his O2 sat was in the 70s when EMS arrived on his 3L NC. Recently admitted from 06/05-06/07 for similar complaints, COVID + at that time, treated with bronchodilators, Zosyn, SoluMedrol and discharged on a Prednisone taper and to complete a course of Ciprofloxacin. He recently underwent bronchoscopy with BAL with Dr. Cano on 05/13 with cultures resulting in Pseudomonas and eden albicans. He was started on Ciprofloxacin at that time. He underwent repeat bronchoscopy with BAL with Dr. Cano on 06/03 which grew stenotrophomonas maltophilia. He was continued on Ciprofloxacin and according to the patient has been taking it over the past 5-6 weeks. In the ED he underwent extensive evaluation. Tmax 100F, BP 119/62, HR 102, RR 40, 91% on 3L. CBC, Coag panel, CMP significant for RBC 4, Hg 12.4, Hct 35.8, PT 9.9, bicarb 33, BUN 39, Cr 1.91, glu 131. Lactic acid 2.9. Troponin 0.054. EKG sinus tachycardia with RBBB. CXR showed COPD with patchy interstitial densities increased from previous CXRs. Patient is admitted for further workup and management. Patient seen by pulmonology and started on IV Zosyn and Bactrim. Patient also on IV steroids. Patient was on BiPAP. Patient weaned down to Airvo. Patient had another bronchoscopy done on 06/24/2024 that showed tracheobronchomalacia with copious thick secretions and mucous plugging. Sputum culture obtained at this time showing Aspergillus fumigatus, stenotrophomonas maltophilia, and Eden albicans. Patient currently on Bactrim 352 mg IVPB every [address] chest was completed showing small right pleural effusion and moderate to severe emphysema with right lower lobe 13 mm pulmonary nodule. Physical exam: Patient was seen and fully evaluated at bedside this morning. Patient reports breathing has worsened today and he feels much more short of breath and reports decreased sputum production. Vital signs reviewed and stable. General: Nontoxic, no distress and appears stated age. Derm: Skin warm and dry, normal coloration for ethnicity. Head: Atraumatic, normocephalic and symmetric. Eyes: EOM's intact, no lid lag, and anicteric sclera Mouth: no lip lesions, mucus membranes moist Cardiovascular: regular rate and rhythm with normal S1S2, systolic murmur, positive posterior tibial pulses bilaterally, and cap refill < 2 seconds. Lungs: Respirations even, regular, and unlabored on Airvo. Lungs diminished with expiratory wheezes. No crackles, rhonchi or rales noted this morning. Abdominal: soft, nontender to palpation, no guarding, no appreciable organomegaly Ext: ROM intact. No gross muscle atrophy, no edema, no contractures Neuro: Speech clear, face symmetrical and CN II-XII grossly intact with no noted focal neuro deficits Psych: Alert and oriented to person, place, time, and situation. Appropriate and pleasant affect. Assessment and Plan of Care: Acute on chronic hypoxic respiratory failure, likely from COVID sequelae complicated by development of pseudomonas and stenotropomonas maltophilia pneumonia Sepsis upon admission, secondary to above Acute on chronic COPD exacerbation, secondary to above Generalized weakness and fatigue secondary to physical decomposition resulting from prolonged hospitalization -Patient underwent 9-day course of IV antibiotics with Bactrim and secondary to hyperkalemia Bactrim was discontinued and on 06/30/24 patient was started on Levaquin 750 mg IVPB every 48 hours. -Continue with supplemental oxygen maintain SpO2 equal to or greater than 90%. Patient currently remains on Airvo. Wean O2 as tolerated -Sputum culture positive for aspergillus fumigatus, stenotrophomonas maltophilia, and Eden albicans. Repeat cultures from bronchoscopy 06/27/2024 negative showing no growth. -Infectious disease following, reviewed documentation in chart.. -Pulmonology following, took patient for bronchoscopy with BAL on 06/24/2024 which revealed tracheobronchomalacia with copious thick secretions and mucous plugging. Reviewed documentation in chart. -Continue with Symbicort 2 puffs INH BID. DuoNebs scheduled Q4H and as needed for wheezing/shortness of breath. Singulair 10 mg PO HS, and IV steroids with SoluMedrol 60 mg IV Q8H. -PT/OT following Pulmonary nodule, incidental finding on CT. Recommend outpatient close monitoring/surveillance with repeat CT in 3 months. Hyponatremia. Stable at 132 this morning. Hyerkalemia. Hyperkalemia likely secondary to Bactrim and resolved after discontinuation of Bactrim and starting patient on Levaquin. Elevated troponin. Troponins flat and ACS ruled out. Continue with ASA 81 mg PO QD. Lipitor 40 mg PO QHS. Plavix 75 mg PO QD. Metoprolol 25 mg PO QD. 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 Hemoglobin A1c 7.3. Continue glycemic protocol with NovoLog sliding scale insulin and scheduled NovoLog 8 units 3 times daily with meals Acute kidney injury on CKD stage IIIa. Resolved. Initially presented with BRITT with BUN of 39, creatinine of 1.91, and GFR of 32. BRITT resolved and renal function back at baseline with BUN of 32, creatinine 1.05, GFR of 67. Lactic acidosis. Resolved Acute blood loss anemia. Patient's hemoglobin was trending down and subcu Love nox for DVT prophylaxis was discontinued and orders placed for SCDs. Today hemoglobin is 9.3 and stable. Patient at this time is too unstable for any endoscopic procedures Chronic conditions: Systolic CHF with EF 40-45%: Appears euvolemic. Hypertension: Continue metoprolol 25 mg daily. Dyslipidemia: Continue Lipitor 40 mg nightly. Non-Hodgkins lymphoma. 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 CAD with CABG: Continue daily cardiac medication regimen with aspirin 81 mg daily, Lipitor 40 mg nightly, Plavix 75 mg daily, and metoprolol 25 mg daily. Carotid stenosis with endarterectomy: Continue daily medication regimen with aspirin 81 mg daily, Lipitor 40 mg nightly, and Plavix 75 mg daily. Data and imaging reviewed: Morning labs reviewed. CBC showing leukocytosis with WBC count of 13.4, stable hemoglobin of 9.3, thrombocytopenia with platelet count of 119. BMP showing mild hyponatremia with sodium of 134, hypercarbia with bicarb of 32, elevated BUN of 41, creatinine of 1.00, GFR 70. Blood glucose was 200. Magnesium 1.6. Liver profile normal findings. Albumin was low at 2.6. Documented urinary output over the past 24 hours was 3150 cc Vital signs reviewed. Blood pressure blood pressure 125/61, heart rate 92, respiratory rate 19, temp 97.1 F, and SpO2 of 97% on Airvo with 93% FiO2 and 60 L.. Pt is day 19 of this hospitalization and his prognosis remains very guarded at this time. CODE STATUS: Full code with instructions, no intubation DVT prophylaxis: SCDs Anticipated discharge date: Pending clinical course Anticipated discharge place: Pending clinical course Patient was seen independently by Nurse Pracitioner. This document was prepared using [employer] dictation software. 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 I reviewed the documentation as provided by the MICHELE above, who is the original author of this note. I agree with the documented assessment and plan, with the following changes: none Objective - Vital Signs Vital signs: Vital Signs Temp 97.1 F L 07/07/24 07:36 Pulse 96 07/07/24 07:56 Resp 19 07/07/24 07:47 BP 125/61 07/07/24 07:36 Pulse Ox 86 L 07/07/24 07:47 FiO2 70 07/07/24 07:47 Intake & Output 07/06/24 07/07/24 07/07/24 18:59 06:59 18:59 Intake Total 1320 540 Output Total 2150 1000 Balance -830 -460 Weight 53 kg Intake: Oral 1320 540 Output: Urine 2150 1000 Other: Voiding Method Indwelling Catheter Indwelling Catheter Indwelling Catheter # Bowel Movements 1 - Labs CBC & Chem 7: 07/07/24 06:00 07/07/24 06:00 Labs: Abnormal Lab Results - Last 24 Hours (Table) 07/06/24 07/06/24 07/06/24 Range/Units 07:40 07:40 11:24 WBC 16.6 H (3.8-10.6) k/uL RBC 3.23 L (4.30-5.90) m/uL Hgb 9.9 L (13.0-17.5) gm/dL Hct 29.8 L (39.0-53.0) % Plt Count 145 L (150-450) k/uL Sodium 133 L (137-145) mmol/L Carbon Dioxide (22-30) mmol/L BUN 36 H (9-20) mg/dL Glucose 191 H (74-99) mg/dL POC Glucose (mg/dL) 197 H (70-110) mg/dL Calcium (8.4-10.2) mg/dL Total Protein 5.0 L (6.3-8.2) g/dL Albumin 2.8 L (3.5-5.0) g/dL 07/06/24 07/06/24 07/07/24 Range/Units 16:29 20:06 05:56 WBC (3.8-10.6) k/uL RBC (4.30-5.90) m/uL Hgb (13.0-17.5) gm/dL Hct (39.0-53.0) % Plt Count (150-450) k/uL Sodium (137-145) mmol/L Carbon Dioxide (22-30) mmol/L BUN (9-20) mg/dL Glucose (74-99) mg/dL POC Glucose (mg/dL) 196 H 222 H 211 H (70-110) mg/dL Calcium (8.4-10.2) mg/dL Total Protein (6.3-8.2) g/dL Albumin (3.5-5.0) g/dL 07/07/24 07/07/24 Range/Units 06:00 06:00 WBC 13.4 H (3.8-10.6) k/uL RBC 3.00 L (4.30-5.90) m/uL Hgb 9.3 L (13.0-17.5) gm/dL Hct 27.5 L (39.0-53.0) % Plt Count 119 L (150-450) k/uL Sodium 134 L (137-145) mmol/L Carbon Dioxide 32 H (22-30) mmol/L BUN 41 H (9-20) mg/dL Glucose 200 H (74-99) mg/dL POC Glucose (mg/dL) (70-110) mg/dL Calcium 8.2 L (8.4-10.2) mg/dL Total Protein 4.6 L (6.3-8.2) g/dL Albumin 2.6 L (3.5-5.0) g/dL
[2024-07-07] MEDS: MAGNESIUM SULFATE-D5W PMX 1 GM in DEXTROSE/WATER 1 100ML.BAG IVPB SCH (15:27)
[2024-07-07 17:14] LABS: Glucose,Whole Blood 264 mg/dL (70-110)
[2024-07-07] MEDS ORDERED: BUDESONIDE 0.5 MG/2 ML NEBU INHALATION SCH (20:00)
[2024-07-07 20:13] LABS: Glucose,Whole Blood 223 mg/dL (70-110)
[2024-07-07] MEDS: BUDESONIDE 1 MG/2 ML NEBU INHALATION SCH (20:15)
[2024-07-08 06:19] LABS: Glucose,Whole Blood 216 mg/dL (70-110)
--- NOTE | 2024-07-08 09:55 | XR ---
EXAMINATION TYPE: XR chest 1V portable DATE OF EXAM: 07/08/2024 9:26 AM COMPARISON: Chest radiograph from two days prior. CLINICAL INDICATION: Male, 79 years old with history of follow up, severe emphysema with multifocal o pacit; [facility] TECHNIQUE: XR chest 1V portable Frontal view of the chest. FINDINGS: Lungs/Pleura: Similar multifocal airspace opacities. No evidence of pneumothorax or pleural effusion. Pulmonary vascularity: Unremarkable. Heart/mediastinum: Cardiomediastinal silhouette is enlarged. Atherosclerotic calcifications are seen in the aorta. Musculoskeletal: Degenerative changes of the shoulder joints. Midline sternotomy wires are noted. Other findings: None IMPRESSION: Similar multifocal airspace opacities. [facility], , 07/08/2024 9:53 AM
[2024-07-08 10:06] LABS: HCT 30.2 % (39.0-53.0); HGB 10.1 gm/dL (13.0-17.5); MCH 30.8 pg (25.0-35.0); MCHC 33.4 g/dL (31.0-37.0); MCV 92.4 fL (80.0-100.0); Platelet Count 127 k/uL (150-450); RBC 3.27 m/uL (4.30-5.90); RDW 15.6 % (11.5-15.5); WBC 14.6 k/uL (3.8-10.6)
[2024-07-08 10:25] LABS: ALT 28 U/L (4-49); AST 32 U/L (17-59); African American GFR (CKD) >90 (>60 ml/min/1.73 sqM); Albumin 2.8 g/dL (3.5-5.0); Alkaline Phosphatase 116 U/L (38-126); Anion Gap 7 mmol/L; Blood Urea Nitrogen 41 mg/dL (9-20); Calcium 8.4 mg/dL (8.4-10.2); Carbon Dioxide 29 mmol/L (22-30); Chloride 99 mmol/L (98-107); Glucose 212 mg/dL (74-99); Non-African American GFR(CKD) 83 (>60 ml/min/1.73 sqM); Potassium 4.5 mmol/L (3.5-5.1); Sodium 135 mmol/L (137-145); Total Bilirubin 0.5 mg/dL (0.2-1.3)
[2024-07-08 11:16] LABS: Glucose,Whole Blood 229 mg/dL (70-110)
--- NOTE | 2024-07-08 11:42 | P.PN ---
Subjective Progress Note Date: 07/08/24 Principal diagnosis: COPD exacerbation. This is a very pleasant 79-year-old male patient who has a history of chronic and ongoing tobacco dependence, severe COPD maintained on a combination of Wixela and Spiriva on an outpatient basis. His previous pulmonary function test from 2020 has shown as an FEV1 of 39% of predicted at baseline. He is also oxygen dependent and utilizes oxygen on and off as requirement of oxygen becomes more needed whenever he gets an acute exacerbation. He has class III/IV chronic exertional dyspnea. He is also being monitored for a right upper lobe pulmonary nodule which is measuring 1.1 cm in size there was noted to be PET avid. Based on his advanced COPD and limited performance status he was recommended continue surveillance of this pulmonary nodule and decide at the later stage if SBRT would be of any benefit for this patient. He is also known to have coronary artery disease, has undergone previous coronary bypass surgery. He has also undergone previous stenting to SVG to RCA. Other comorbidities include hypertension, hyperlipidemia, previous history of non-Hodgkin's lymphoma treated with rituximab and the patient has carotid artery disease, abdominal aortic aneurysm with previous endovascular stent grafting and the patient has a aorto by iliac endovascular graft along with previous history of a upper GI bleed related to a duodenal ulcer which resulted into significant blood loss anemia. He has had frequent readmissions to the hospital. Recently discharged on June 07, 2024. His most recent bronchoscopy was performed on 06/03/2024 and was found to have Stenotrophomonas maltophilia and was treated with Ciprofloxa mindy. He came back to the emergency room yesterday 06/18/2024 with complaints of increasing shortness of breath, cough and congestion. Chest x-ray reveals interstitial opacities bilaterally. No pleural effusion. Mild hyperinflation. White count 6.2. Hemoglobin 12.4. Platelets 204. Sodium 139. Potassium 3.7. Bicarb 33. BUN 39. Creatinine 1.91. Glucose 131. Troponin 0.043. proBNP 571 . Procalcitonin 0.29. He has been initiated on DuoNeb inhalations, Symbicort, prednisone taper. Antibiotics in the form of Zosyn. Lovenox for DVT prophylaxis. He is seen in consultation on the regular medical floor. Currently sitting up in bed. He is dyspneic with conversation. Dyspneic with minimal exertion. Admits to still smoking 2 to 3 cigarettes a day. Currently maintaining O2 saturations in the 90s on 3 L/min per nasal cannula. He has been afebrile. Hemodynamically stable. The patient is seen today June 20, 2024 in follow-up on the regular medical floor. He is currently resting in bed. Awake and alert in no acute distress. He is breathing a bit easier today compared to yesterday. His only complaint is of sinus congestion. He is maintaining good O2 saturations in the 90s on 3 L/min per nasal cannula. No IV fluids. Blood and sputum cultures revealing no growth to date. Glucose 180. He is continued on DuoNeb and elations, Symbicort, Singulair, prednisone taper. Lovenox for DVT prophylaxis. Progress note dated June 21, 2024. This is an 79-year-old male with a history of severe COPD. FEV1 is 39% of predicted. Unfortunately, the patient does continue to smoke cigarettes. He was admitted with a diagnosis of COPD exacerbation. This morning, a rapid response team was called to this patient's bed, in room 476. The patient was very short of breath. He was placed on BiPAP, 12/5 and 40%. Blood gases were ordered. A chest x-ray was ordered. He received some Ativan and Xanax. He is getting lactated Ringer's at 50 cc an hour. The patient is a DO NOT INTUBATE patient. White count 11.6, hemoglobin 12.4, hematocrit 36.3, platelet count normal. Repeat blood gases show pO2 of 52, pCO2 of 35, and a pH of 7.49. At this point, the BiPAP was changed to 16/5. The FiO2 was increased to 50%. Sodium 143, potassium 4.3, chlorides 108, CO2 29, BUN 22, creatinine 1.30. Calcium is 8.8. Sputum and blood sampling has been negative thus far. Chest x- ray shows changes of COPD, without evidence of airspace consolidation. On 06/22/2024, the patient is being seen for a follow-up. This morning, the patient is on a BiPAP pressure of 16 over 5 cm of water with FiO2 of 60% and the patient is on a lactated Ringer at rate of 50 cc an hour. Chest x-ray was done this morning and it showed patchy infiltrates in lung bases more so on the right consistent with pneumonia. Most recent bronchoscopy yielded stenotrophomonas and the patient has grown Pseudomonas in the past. The patient is currently on IV Zosyn. He remains on DuoNeb nebulized treatments [id number]. He is on Symbicort. He is on IV Solu-Medrol. He is awake and alert and communicating. The white cell count is at 7 with hemoglobin of 10 and platelet count of 189. BUN is 27 with a creatinine of 1.36 and a sodium levels at 138. He is weak and quite debilitated on a chronic basis. Bactrim will be also added to his regimen. On 06/23/2024, the patient is still on Airvo at 35 L with an FiO2 of 50% with a pulse ox of 96%. Feels somewhat improved compared to yesterday. Continues to have a congested cough with limited amount of sputum production. Antibiotic modification was done yesterday and the patient is currently on a combination of Zosyn and IV Bactrim. Renal function remained stable. On today's blood work, the creatinine is at 1.24 with a BUN of 23. Rest of the electrolytes are all stable and within normal limits. White cell count of 5.3 with a hemoglobin of 9. A repeat chest x-ray from today shows some bibasilar pulmonary filtrates slightly worse on the left along with background COPD. Remains on bronchodilators. Remains on steroids. Remains on lactated Ringer at 50 cc an hour. Remains on Symbicort and DuoNeb updrafts [id number]. Home medications have been also resumed. 06/24/2024, the patient remains on Airvo 35 L with an FiO2 of 55%. The patient continues to have respiratory difficulties, cough, congestion, unable to bring up much of sputum. No significant improvement in respiratory status over the past 24 hours. The patient remains on a combination of IV Bactrim and IV Zosyn. The white cell count is at 8.1. Hemoglobin is 8.6 and a platelet count of 142. BUN is 25 with a creatinine of 1.22. He is getting progressively more debilitated and weak. Spending most of the time in bed. Oral intake is diminished and the patient had minimal amount of old. Earlier this morning. I plan to do a bronchoscopy on this patient in the afternoon to further optimize her respiratory status. Suspect mucous plugs. 06/25/2024, the patient is post bronchoscopy. The patient remains on Airvo 35 L with an FiO2 of 55%. Continues to struggle with his breathing. Cough and congestion is improved compared to yesterday post bronchoscopy. Repeat bronchoalveolar lavage was done and results are still pending. Most recent spu katt sample is showing Eden, Aspergillus and stenotrophomonas. The patient remains on Bactrim IV. Remains on IV Solu-Medrol. Remains on DuoNeb nebulized treatments [id number]. The white cell count of 7.4 with a hemoglobin 9.5 and a platelet count of 197. Sodium is at 136, BUN 25 with a creatinine of 1.1. ID is on the case. No other new complaints otherwise for now. 06/26/2024, patient is being seen for a follow-up. The patient is sitting up in a chair. Awaiting the results from the bronchoscopy and bronchial lavage. Most recent sputum analysis was positive for stenotrophomonas in addition to Aspergillus and candidal elements. Earlier this morning, the patient was on Airvo. He was at 35 L with an FiO2 of 55%. I took him off the Airvo and I put him on 60 days of oxygen by nasal cannula and his current pulse ox 94%. He remains bronchospastic and wheezy. Awaiting consistent 0.8 edema 9.5 and a platelet count of 199. BUN is 25 with a creatinine of 1.09 and sodium levels at 135. Communicating. Awake. No chest pain. No other new complaints since yesterday. Awaiting results of the bronchial lavage and the patient remains on IV Bactrim. In terms of his renal function, the patient's creatinine is stable at 1.09. 06/27/2024, the patient continues to have labored breathing. After being on nasal cannula for yesterday, this patient became more short of breath this morning. Based on that, the patient was placed again on Airvo and the patient is currently on 50 L with FiO2 of 60%. Pulse ox in the order of 94 to 95%. He remains on IV Bactrim. Continues to encounter cough and congestion. Unable to bring up much of sputum. No chest pain. Looks quite lethargic and weak. His white cell count today is at 10.2 with a hemoglobin 9.9. BUN is 23 with a c reatinine of 1.1. Rest of the medication remains unchanged. Remains on IV Solu-Medrol. Remains on DuoNeb nebulized treatments [id number]. Symbicort will be discontinued and the patient was placed on a combination of Perforomist and Pulmicort. Oral intake remains quite diminished. 06/28/2024, the patient continues to struggle with his breathing. He remains on Airvo and is alternating it with a BiPAP. I am going to switch to BiPAP at a pressure of 10 over 5 cm of water and FiO2 of 50%. Meanwhile, this morning, he remains on Airvo and is currently on 50 L with an FiO2 of 60%. Congested cough. Remains bronchospastic and wheezy. Remains weak and debilitated. Oral intake remains quite diminished. Repeat arthroscopy and lavage yielded no microbial growth and the most recent cultures came back negative. Meanwhile, based on the earlier cultures of stenotrophomonas, the patient remains on Bactrim. Creatinine is stable at 1.2. Responded adequately to Lasix and the patient p roduced approximately 2.8 L of negative fluid balance over the past 24 hours. Potassium is at 4.8. WBC count is at 8.4 with hemoglobin 8.6. Chest x-ray findings are essentially unchanged and the patient has stable lower lobe pulmonary filtrates which are essentially unchanged. Seen today on 06/29/2024, patient is feeling better today, breathing easier. However he remains on Airvo with FiO2 of 60% and flow of 55 L/min. Patient is on antibiotics for his pneumonia and positive multi microbial cultures from his sputum and his BAL. This is being addressed accordingly, however the main organism seems to be Stenotrophomonas maltophilia WBC count is 9.8 hemoglobin is 9 basic metabolic profile is normal BUN is 24 creatinine 1.23. This x-ray from yesterday continues show bilateral extensive infiltrates specially at the bases of his right lung and left lung/lingula Patient was evaluated today on 06/30/2024, patient is basically about the same, continues to have cough, shortness of breath, significant amount of secretions, on 8 L high flow nasal cannula, patient is developing worsening electrolytes imbalance, renal functioning is not changing much creatinine 1.19, however his potassium is 5.8 sodium is 129 WBC 16.1. Chest x-ray continues to show significant airspace disease involving the left lower lobe and lingula as well as the right lower lobe, infectious disease is concerned about Bactrim with hyperkalemia, and recommending IV Levaquin instead. Patient was seen today on 07/01/2024, patient feels worse today, he is on Airvo at 70% FiO2 and 55 L flow, continues to have intermittent cough wheezing shortness of breath, cough is productive. His antibiotics were changed yes terday from Bactrim to Levaquin, being followed by infectious disease. 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 Basic metabolic profile is better potassium is down to 5.1 BUN is 28 creatinine 1.25. Family is at bedside, and I discussed his pulmonary status with the family Reevaluate today on 07/02/2024, patient is feeling a bit better today compared to yesterday. Breathing easier, CT of the chest was reviewed patient has significant COPD/emphysema and bilateral airspace disease patient remains on Levaquin, bronchodilators, and steroids, patient is also receiving multiple bronchodilators, some improvement but not back to baseline. Still requiring Airvo with high flow and high FiO2. WBC count today is 13.6 hemoglobin 9.8 basic metabolic profile is normal BUN is 30 creatinine 1.38 Patient was seen today on 07/03/2024, continues to steadily improve, however he remains on Airvo, 40 L flow and 60% FiO2 O2 saturation 96%. Less cough less wheezing less shortness of breath, he seems more comfortable today than he felt in the last few days. WBC count is 12.6 hemoglobin 8.9 basic metabolic profile is normal BUN is 27 creatinine 1.27, better today compared to yesterday. Patient remains on Levaquin Reevaluate today on 07/04/2024, patient continues to feel better today, however he is on relatively higher FiO2 and higher flow via Airvo. He is up to 65% and his flow is 50 L. Patient is comfortable, continues to have intermittent cough wheezing, cough is productive with yellow phlegm. No fever no chills no hemoptysis, remains on Levaquin. Patient was evaluated today on 07/05/2024, remains on Airvo, patient is doing well today, less cough less wheezing less shortness of breath remains on Levaquin. WBC count is 13.4 hemoglobin 9.3 basic metabolic profile is normal BUN is 32 creatinine 1.05 Progress note dated July 06, 2024. 79-year-old male who is now been in the hospital for 18 days. He was admitted with a diagnosis of acute on chronic respiratory failure. Currently, the patient is on Airvo, at 50 L/min with an FiO2 of 60%. He is not receiving any IV fluids. I last saw him on June 21, 2 weeks ago. Current labs include a white count of 16.6, hemoglobin 9.9, hematocrit 29.8, and a platelet count of 145,000. Sodium 133, potassium 4.8, chlorides 99, CO2 27, BUN 36, creatinine 0.95. Albumin is 2.8. Glucose is 197. Chest x-ray shows multifocal airspace opacities, previously unchanged from the x-ray on June 30. Progress note dated July 07, 2024. 79-year-old male seen in room 363. He has not been in the hospital for 19 days. The patient continues on Airvo, with settings of 60 L/min, and an FiO2 of 94%. He is not receiving any IV fluids. The patient is receiving albuterol sulfate and ipratropium breathing treatments, Solu-Medrol, budesonide, formoterol, and also Levaquin. The patient complains of difficulty breathing. He is currently laying flat in bed. White count 13.4, hemoglobin 9.3, hematocrit 27.5, platelet count of 119,000. Sodium 134, potassium 4.3, chloride 99, CO2 32, BUN 41, creatinine 1. Albumin is 2.6. Chest x-ray from July 06, shows multifocal airspace opacities, which are unchanged. Progress note dated July 08, 2024. 79-year-old male with a history of severe/end-stage COPD. The patient is seen today in room 363. The patient has not been in the hospital for 20 days. The patient continues on Airvo, at 50 L/min with an FiO2 of 85%. Patient really has not made any headway. Antibiotic in my opinion can be discontinued. I think a hospice consult or palliative care consult would be very appropriate. White count is 14.6, hemoglobin 10.1, hematocrit 30.2, and platelet count 127,000. Sodium 135, potassium 4.5, chlorides 99, CO2 29, BUN 41, and creatinine 0.83. Albumin is 2.8. Glucose is 229. Sputum samples from June 22 showed Aspergillus fumigatus, Eden albicans, and Stenotrophomonas maltophilia. Objective - Vital Signs Vital signs: Vital Signs Temp 97.6 F 07/08/24 08:30 Pulse 94 07/08/24 09:49 Resp 18 07/08/24 09:03 BP 145/80 07/08/24 08:30 Pulse Ox 96 07/08/24 09:21 FiO2 85 07/08/24 09:21 Intake & Output 07/07/24 07/08/24 07/08/24 18:59 06:59 18:59 Intake Total 200 360 Output Total 475 450 600 Balance -275 -450 -240 Weight 53 kg 47.5 kg Intake: Oral 200 360 Output: Urine 475 450 600 Other: Voiding Method Indwelling Catheter Indwelling Catheter Indwelling Catheter - Exam Patient is very short of breath, with conversational dyspnea, and use of accessory muscles, currently on AIRVO. HEENT examination is grossly unremarkable. Mucous membranes are moist. No oral lesions. Neck supple. Full range of motion. No adenopathy thyromegaly or neck vein distention. Cardiovascular examination reveals regular rhythm rate. S1-S2 normal. No S3 or S4. No discernible murmur noted. Heart sounds are distant. Lungs reveal scattered bilateral rhonchi and expiratory wheezes. No crackles. Breath sounds equal but diminished throughout. Abdomen soft and without bowel sounds. No masses or tenderness. Extremities are intact. No cyanosis clubbing or edema. Skin is without rash or lesion. Neurologic examination is brief but nonfocal. - Labs CBC & Chem 7: 07/08/24 09:28 07/08/24 09:28 Labs: Abnormal Lab Results - Last 24 Hours (Table) 07/07/24 07/07/24 07/07/24 Range/Units 11:53 17:13 20:12 WBC (3.8-10.6) k/uL RBC (4.30-5.90) m/uL Hgb (13.0-17.5) gm/dL Hct (39.0-53.0) % RDW (11.5-15.5) % Plt Count (150-450) k/uL Sodium (137-145) mmol/L BUN (9-20) mg/dL Glucose (74-99) mg/dL POC Glucose (mg/dL) 134 H 264 H 223 H (70-110) mg/dL Total Protein (6.3-8.2) g/dL Albumin (3.5-5.0) g/dL 07/08/24 07/08/24 07/08/24 Range/Units 06:17 09:28 09:28 WBC 14.6 H (3.8-10.6) k/uL RBC 3.27 L (4.30-5.90) m/uL Hgb 10.1 L (13.0-17.5) gm/dL Hct 30.2 L (39.0-53.0) % RDW 15.6 H (11.5-15.5) % Plt Count 127 L (150-450) k/uL Sodium 135 L (137-145) mmol/L BUN 41 H (9-20) mg/dL Glucose 212 H (74-99) mg/dL POC Glucose (mg/dL) 216 H (70-110) mg/dL Total Protein 5.0 L (6.3-8.2) g/dL Albumin 2.8 L (3.5-5.0) g/dL 07/08/24 Range/Units 11:14 WBC (3.8-10.6) k/uL RBC (4.30-5.90) m/uL Hgb (13.0-17.5) gm/dL Hct (39.0-53.0) % RDW (11.5-15.5) % Plt Count (150-450) k/uL Sodium (137-145) mmol/L BUN (9-20) mg/dL Glucose (74-99) mg/dL POC Glucose (mg/dL) 229 H (70-110) mg/dL Total Protein (6.3-8.2) g/dL Albumin (3.5-5.0) g/dL Assessment and Plan Assessment: Acute on chronic hypoxic respiratory failure secondary to an acute exacerbation of COPD. Frequent admissions for COPD exacerbation. Recent discharge on 06/07/2024. Recent bronchoscopy of 06/03/2024 revealed Stenotrophomonas maltophilia. Chronic and ongoing tobacco dependence Oxygen dependent chronic obstructive pulmonary disease with an FEV1 value 39% of predicted. Chronic tobacco dependence of greater than 60 years. Right upper lobe PET avid pulmonary nodule which is being monitored on out patient basis. History of non-Hodgkin's lymphoma. Chronic stage III kidney disease. Coronary disease with previous coronary artery bypass surgery in 2001. History of abdominal aortic aneurysm status post stent placement in March 2022. Carotid stenosis S/P endarterectomy. History of ESBL E. coli in 2021. Hyperlipidemia. Hypertension. Plan: Plan dated June 21, 2024. The patient is transferred to the intensive care unit, as a 3 S. overflow. He is placed on BiPAP, with settings of 16/5, and 50%. Blood gases have been ordered as well as a chest x-ray. The patient received some Ativan for sedation and anxiety control. He is getting lactated Ringer's at 50 cc an hour. I confirmed with the nurses that the patient is a DO NOT INTUBATE patient. Labs, x-rays, and all medications are reviewed. The patient's overall prognosis remains poor. He has severe COPD with an FEV1 that is only 39% of predicted. Plan dated July 06, 2024. I saw the patient last 2 weeks ago. The patient was on BiPAP at that time. Currently he is on Airvo, at 50 L/min, with an FiO2 60%. He is not receiving any IV fluids. Labs, x-rays, and all medications are reviewed. The patient's overall prognosis remains very guarded. Patient continues on Levaquin, as per infectious diseases. The rest of his medications are appropriate. The patient is a DO NOT INTUBATE patient. We will continue to follow make recommendations along the way. Plan dated July 07, 2024. The patient is seen in room 363. He continues on Airvo, with settings of 60 L/min with an FiO2 of 94%. The patient continues on all appropriate medications including updrafts with albuterol sulfate and ipratropium bromide, updrafts with budesonide, and formoterol, Levaquin, and Solu-Medrol. Labs, x-rays, and medications are reviewed. We will continue to follow. The patient is not to be intubated. Prognosis is poor. Plan dated July 08, 2024. The patient is seen today in room 363. This is an 79-year-old male with history of severe end-stage COPD. The patient is currently on Airvo, at 50 L/min, with an FiO2 of 85%. He is not receiving any IV fluids. The patient really has not made any progress. The patient is still very short of breath. The patient has been in the hospital for 20 days. I think it is very appropriate to consider hospice consultation, or palliative care consultation. Will leave that up to the primary service, but that is our recommendation. We will continue to follow the patient. Labs, x-rays, and all medications are reviewed. Prognosis is very poor. Time with Patient: Less than 30
--- NOTE | 2024-07-08 11:46 | P.PN ---
Subjective Progress Note Date: 07/08/24 Hospital course: Patient is a very pleasant 79-year-old male with a past medical history of systolic CHF with EF 40 to 45%, COPD on 3L home O2, chronic kidney disease, hypertension, hyperlipidemia, non-Hodgkins lymphoma, CAD with CABG, AAA with stent, carotid stenosis with endarterectomy presents to the ED for shortness of breath. Apparently his O2 sat was in the 70s when EMS arrived on his 3L NC. Recently admitted from 06/05-06/07 for similar complaints, COVID + at that time, treated with bronchodilators, Zosyn, SoluMedrol and discharged on a Prednisone taper and to complete a course of Ciprofloxacin. He recently underwent bronchoscopy with BAL with Dr. Cano on 05/13 with cultures resulting in Pseudomonas and eden albicans. He was started on Ciprofloxacin at that time. He underwent repeat bronchoscopy with BAL with Dr. Cano on 06/03 which grew stenotrophomonas maltophilia. He was continued on Ciprofloxacin and according to the patient has been taking it over the past 5-6 weeks. In the ED he underwent extensive evaluation. Tmax 100F, BP 119/62, HR 102, RR 40, 91% on 3L. CBC, Coag panel, CMP significant for RBC 4, Hg 12.4, Hct 35.8, PT 9.9, bicarb 33, BUN 39, Cr 1.91, glu 131. Lactic acid 2.9. Troponin 0.054. EKG sinus tachycardia with RBBB. CXR showed COPD with patchy interstitial densities increased from previous CXRs. Patient is admitted for further workup and management. Patient seen by pulmonology and started on IV Zosyn and Bactrim. Patient also on IV steroids. Patient was on BiPAP. Patient weaned down to Airvo. Patient had another bronchoscopy done on 06/24/2024 that showed tracheobronchomalacia with copious thick secretions and mucous plugging. Sputum culture obtained at this time showing Aspergillus fumigatus, stenotrophomonas maltophilia, and Eden albicans. Patient currently on Bactrim 352 mg IVPB every [address] chest was completed showing small right pleural effusion and moderate to severe emphysema with right lower lobe 13 mm pulmonary nodule. Physical exam: Patient was seen and fully evaluated at bedside this morning. Patient reports breathing better today compared to yesterday but remains on AIRVO and repeat morning chest x-ray showing no improvement. Vital signs reviewed and stable. General: Nontoxic, no distress and appears stated age. Derm: Skin warm and dry, normal coloration for ethnicity. Head: Atraumatic, normocephalic and symmetric. Eyes: EOM's intact, no lid lag, and anicteric sclera Mouth: no lip lesions, mucus membranes moist Cardiovascular: regular rate and rhythm with normal S1S2, systolic murmur, positive posterior tibial pulses bilaterally, and cap refill < 2 seconds. Lungs: Respirations even, regular, and unlabored on Airvo. Lungs diminished with expiratory wheezes. No crackles, rhonchi or rales noted this morning. Abdominal: soft, nontender to palpation, no guarding, no appreciable organomegaly Ext: ROM intact. No gross muscle atrophy, no edema, no contractures Neuro: Speech clear, face symmetrical and CN II-XII grossly intact with no noted focal neuro deficits Psych: Alert and oriented to person, place, time, and situation. Appropriate and pleasant affect. Assessment and Plan of Care: Acute on chronic hypoxic respiratory failure, likely from COVID sequelae complicated by development of pseudomonas and stenotropomonas maltophilia p neumonia Sepsis upon admission, secondary to above Acute on chronic COPD exacerbation, secondary to above Generalized weakness and fatigue secondary to physical decomposition resulting from prolonged hospitalization -Patient underwent 9-day course of IV antibiotics with Bactrim and secondary to hyperkalemia Bactrim was discontinued and on 06/30/24 patient was started on Levaquin 750 mg IVPB every 48 hours. -Continue with supplemental oxygen maintain SpO2 equal to or greater than 90%. Patient currently remains on Airvo. Wean O2 as tolerated -Sputum culture positive for aspergillus fumigatus, stenotrophomonas maltophilia, and Eden albicans. Repeat cultures from bronchoscopy 06/27/2024 negative showing no growth. -Infectious disease following, reviewed documentation in chart.. -Pulmonology following, took patient for bronchoscopy with BAL on 06/24/2024 which revealed tracheobronchomalacia with copious thick secretions and mucous plugging. Discussed guarded prognosis in detail with commutator tester and pulmonary PRENATAL NURSE. -Continue with Symbicort 2 puffs INH BID. DuoNebs scheduled Q4H and as needed for wheezing/shortness of breath. Singulair 10 mg PO HS, and IV steroids with SoluMedrol 60 mg IV Q8H. -PT/OT following Pulmonary nodule, incidental finding on CT. Recommend outpatient close monitoring/surveillance with repeat CT in 3 months. Hyponatremia. Stable at 132 this morning. Hyerkalemia. Hyperkalemia likely secondary to Bactrim and resolved after discontinuation of Bactrim and starting patient on Levaquin. Elevated troponin. Troponins flat and ACS ruled out. Continue with ASA 81 mg PO QD. Lipitor 40 mg PO QHS. Plavix 75 mg PO QD. Metoprolol 25 mg PO QD. 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 Hemoglobin A1c 7.3. Continue glycemic protocol with NovoLog sliding scale insulin and scheduled NovoLog 8 units 3 times daily with meals Acute kidney injury on CKD stage IIIa. Resolved. Initially presented with BRITT with BUN of 39, creatinine of 1.91, and GFR of 32. BRITT resolved and renal fun ction back at baseline with BUN of 32, creatinine 1.05, GFR of 67. Lactic acidosis. Resolved Acute blood loss anemia. Patient's hemoglobin was trending down and subcu Lovenox for DVT prophylaxis was discontinued and orders placed for SCDs. Today hemoglobin is 9.3 and stable. Patient at this time is too unstable for any endoscopic procedures Chronic conditions: Systolic CHF with EF 40-45%: Appears euvolemic. Hypertension: Continue metoprolol 25 mg daily. Dyslipidemia: Continue Lipitor 40 mg nightly. Non-Hodgkins lymphoma. Continue to follow-up outpatient with multiplex operator. CAD with CABG: Continue daily cardiac medication regimen with aspirin 81 mg daily, Lipitor 40 mg nightly, Plavix 75 mg daily, and metoprolol 25 mg daily. Carotid stenosis with endarterectomy: Continue daily medication regimen with aspirin 81 mg daily, Lipitor 40 mg nightly, and Plavix 75 mg daily. Data and imaging reviewed: Morning labs reviewed. CBC showing leukocytosis with WBC count of 14.6, stable hemoglobin of 10.1, thrombocytopenia with platelet count of 127. BMP showing mild hyponatremia with sodium of 135, elevated BUN of 41, creatinine of 0.83, GFR 83. Blood glucose was 212. Magnesium 2.0. Liver profile normal findings. Albumin was low at 2.8. Documented urinary output over the past 24 hours was 925 cc Vital signs reviewed. Blood pressure 145/80, heart rate 86, respiratory rate 18, temp 97.6 F, and SpO2 of 92% on Airvo with FiO2 of 85% at 50 L. Repeat morning x-ray personally reviewed, remaining unchanged from x-ray completed, 07/06/2024. Pt is day 20 of this hospitalization and his prognosis remains very guarded at this time. CODE STATUS: Full code with instructions, no intubation DVT prophylaxis: SCDs Anticipated discharge date: Pending clinical course Anticipated discharge place: Pending clinical course Patient was seen independently by Nurse Pracitioner. This document was prepared using [employer] dictation software. Please allow for errors in darkroom technician, while rare they do occur. I reviewed the documentation as provided by the MICHELE above, who is the original author of this note. I agree with the documented assessment and plan, with the following changes: none Objective - Vital Signs Vital signs: Vital Signs Temp 98.2 F 07/08/24 04:00 Pulse 90 07/08/24 04:00 Resp 18 07/08/24 04:00 BP 132/67 07/08/24 04:00 Pulse Ox 92 L 07/08/24 04:28 FiO2 85 07/08/24 04:28 Intake & Output 07/07/24 07/08/24 07/08/24 18:59 06:59 18:59 Intake Total 200 Output Total 475 450 Balance -275 -450 Weight 53 kg 47.5 kg Intake: Oral 200 Output: Urine 475 450 Other: Voiding Method Indwelling Catheter Indwelling Catheter - Labs CBC & Chem 7: 07/08/24 09:28 07/08/24 09:28 Labs: Abnormal Lab Results - Last 24 Hours (Table) 07/07/24 07/07/24 07/07/24 Range/Units 11:53 17:13 20:12 POC Glucose (mg/dL) 134 H 264 H 223 H (70-110) mg/dL 07/08/24 Range/Units 06:17 POC Glucose (mg/dL) 216 H (70-110) mg/dL
[2024-07-08 17:00] LABS: Glucose,Whole Blood 289 mg/dL (70-110)
[2024-07-08 20:07] LABS: Glucose,Whole Blood 262 mg/dL (70-110)
--- NOTE | 2024-07-08 23:34 | P.PN ---
Subjective Progress Note Date: 07/08/24 Principal diagnosis: Reason for follow-up is pneumonia Patient is a 79-year-old male with a past medical history significant for non-Hodgkin lymphoma COPD hypertension hyperlipidemia heart failure recently diagnosed with a COVID-19 presented to hospital for evaluation of increasing shortness of breath and cough sputum production did have patient evaluated on the chest x-ray concerning for pneumonia. On today's evaluation that is 07/08/2024,the patient denies any fever or any chills, patient is breathing slightly comfortably however still requiring high flow nasal cannula oxygen with an FiO2 of 80%. Denies any chest pain no worsening cough or sputum production abdominal pain or diarrhea. Patient white count is 14.6, creatinine 0.83 Objective - Vital Signs Vital signs: Vital Signs Temp 98.5 F 07/08/24 12:02 Pulse 87 07/08/24 12:06 Resp 18 07/08/24 12:02 BP 159/83 07/08/24 12:02 Pulse Ox 93 L 07/08/24 12:07 FiO2 85 07/08/24 12:07 Intake & Output 07/07/24 07/08/24 07/08/24 18:59 06:59 18:59 Intake Total 200 360 Output Total 475 450 600 Balance -275 -450 -240 Weight 53 kg 47.5 kg Intake: Oral 200 360 Output: Urine 475 450 600 Other: Voiding Method Indwelling Catheter Indwelling Catheter Indwelling Catheter - Exam GENERAL DESCRIPTION: An elderly male up in bed in no distress RESPIRATORY SYSTEM: Unlabored breathing , coarse breath sounds bilaterally HEART: S1 S2 regular rate and rhythm , ABDOMEN: Soft , no tenderness EXTREMITIES: No edema feet - Labs CBC & Chem 7: 07/08/24 09:28 07/08/24 09:28 Labs: Abnormal Lab Results - Last 24 Hours (Table) 07/07/24 07/07/24 07/08/24 Range/Units 17:13 20:12 06:17 WBC (3.8-10.6) k/uL RBC (4.30-5.90) m/uL Hgb (13.0-17.5) gm/dL Hct (39.0-53.0) % RDW (11.5-15.5) % Plt Count (150-450) k/uL Sodium (137-145) mmol/L BUN (9-20) mg/dL Glucose (74-99) mg/dL POC Glucose (mg/dL) 264 H 223 H 216 H (70-110) mg/dL Total Protein (6.3-8.2) g/dL Albumin (3.5-5.0) g/dL 07/08/24 07/08/24 07/08/24 Range/Units 09:28 09:28 11:14 WBC 14.6 H (3.8-10.6) k/uL RBC 3.27 L (4.30-5.90) m/uL Hgb 10.1 L (13.0-17.5) gm/dL Hct 30.2 L (39.0-53.0) % RDW 15.6 H (11.5-15.5) % Plt Count 127 L (150-450) k/uL Sodium 135 L (137-145) mmol/L BUN 41 H (9-20) mg/dL Glucose 212 H (74-99) mg/dL POC Glucose (mg/dL) 229 H (70-110) mg/dL Total Protein 5.0 L (6.3-8.2) g/dL Albumin 2.8 L (3.5-5.0) g/dL Assessment and Plan (1) Pneumonia Current Visit: Yes Status: Acute Code(s): J18.9 - PNEUMONIA, UNSPECIFIED ORGANISM SNOMED Code(s): 564377970 (2) Sepsis Current Visit: No Status: Acute Code(s): A41.9 - SEPSIS, UNSPECIFIED ORGANISM SNOMED Code(s): 64525037 Plan: 1patient presented to hospital with sepsis in this patient who did have fever tachycardia mild hypotension source is likely pneumonia in this patient who rece ntly did have a COVID-19 will need to cover for resistant gram negative to be the likely etiology and the patient recently grew Pseudomonas in his BAL culture 2-blood cultures are so far negative initial sputum has been negative, urine for Legionella antigen was negative mycoplasma IgM not elevated, repeat sputum is growing stenotrophomonas as well as Aspergillus and Eden 3 Aspergillus CF antibodies came back negative, and Aspergillus galactomannan requested but no results 4patient remains to be afebrile, patient is still requiring high flow nasal cannula oxygen primary team is talking to the family regarding hospice which may be appropriate for now continue with the Levaquin Dictation was produced using [employer] dictation software. please excuse any grammatical, word or spelling errors. Time with Patient: Less than 30
[2024-07-09 06:15] LABS: Glucose,Whole Blood 257 mg/dL (70-110)
[2024-07-09 07:34] LABS: HCT 26.6 % (39.0-53.0); HGB 8.9 gm/dL (13.0-17.5); MCH 30.9 pg (25.0-35.0); MCHC 33.4 g/dL (31.0-37.0); MCV 92.6 fL (80.0-100.0); Mean Platelet Volume 9.2; Platelet Count 107 k/uL (150-450); RBC 2.88 m/uL (4.30-5.90); RDW 15.7 % (11.5-15.5); WBC 12.4 k/uL (3.8-10.6)
[2024-07-09 07:47] LABS: ALT 26 U/L (4-49); AST 27 U/L (17-59); African American GFR (CKD) >90 (>60 ml/min/1.73 sqM); Albumin 2.5 g/dL (3.5-5.0); Alkaline Phosphatase 108 U/L (38-126); Anion Gap 4 mmol/L; Blood Urea Nitrogen 41 mg/dL (9-20); Calcium 8.1 mg/dL (8.4-10.2); Carbon Dioxide 29 mmol/L (22-30); Chloride 100 mmol/L (98-107); Glucose 227 mg/dL (74-99); Magnesium 1.9 mg/dL (1.6-2.3); Non-African American GFR(CKD) 84 (>60 ml/min/1.73 sqM); Potassium 4.7 mmol/L (3.5-5.1); Sodium 133 mmol/L (137-145); Total Bilirubin 0.5 mg/dL (0.2-1.3); Total Protein 4.6 g/dL (6.3-8.2)
[2024-07-09 11:30] LABS: Glucose,Whole Blood 229 mg/dL (70-110)
--- NOTE | 2024-07-09 13:18 | P.PN ---
Subjective Progress Note Date: 07/09/24 Principal diagnosis: COPD exacerbation. This is a very pleasant 79-year-old male patient who has a history of chronic and ongoing tobacco dependence, severe COPD maintained on a combination of Wixela and Spiriva on an outpatient basis. His previous pulmonary function test from 2020 has shown as an FEV1 of 39% of predicted at baseline. He is also oxygen dependent and utilizes oxygen on and off as requirement of oxygen becomes more needed whenever he gets an acute exacerbation. He has class III/IV chronic exertional dyspnea. He is also being monitored for a right upper lobe pulmonary nodule which is measuring 1.1 cm in size there was noted to be PET avid. Based on his advanced COPD and limited performance status he was recommended continue surveillance of this pulmonary nodule and decide at the later stage if SBRT would be of any benefit for this patient. He is also known to have coronary artery disease, has undergone previous coronary bypass surgery. He has also undergone previous stenting to SVG to RCA. Other comorbidities include hypertension, hyperlipidemia, previous history of non-Hodgkin's lymphoma treated with rituximab and the patient has carotid artery disease, abdominal aortic aneurysm with previous endovascular stent grafting and the patient has a aorto by iliac endovascular graft along with previous history of a upper GI bleed related to a duodenal ulcer which resulted into significant blood loss anemia. He has had frequent readmissions to the hospital. Recently discharged on June 07, 2024. His most recent bronchoscopy was performed on 06/03/2024 and was found to have Stenotrophomonas maltophilia and was treated with Ciprofloxa mindy. He came back to the emergency room yesterday 06/18/2024 with complaints of increasing shortness of breath, cough and congestion. Chest x-ray reveals interstitial opacities bilaterally. No pleural effusion. Mild hyperinflation. White count 6.2. Hemoglobin 12.4. Platelets 204. Sodium 139. Potassium 3.7. Bicarb 33. BUN 39. Creatinine 1.91. Glucose 131. Troponin 0.043. proBNP 571 . Procalcitonin 0.29. He has been initiated on DuoNeb inhalations, Symbicort, prednisone taper. Antibiotics in the form of Zosyn. Lovenox for DVT prophylaxis. He is seen in consultation on the regular medical floor. Currently sitting up in bed. He is dyspneic with conversation. Dyspneic with minimal exertion. Admits to still smoking 2 to 3 cigarettes a day. Currently maintaining O2 saturations in the 90s on 3 L/min per nasal cannula. He has been afebrile. Hemodynamically stable. The patient is seen today June 20, 2024 in follow-up on the regular medical floor. He is currently resting in bed. Awake and alert in no acute distress. He is breathing a bit easier today compared to yesterday. His only complaint is of sinus congestion. He is maintaining good O2 saturations in the 90s on 3 L/min per nasal cannula. No IV fluids. Blood and sputum cultures revealing no growth to date. Glucose 180. He is continued on DuoNeb and elations, Symbicort, Singulair, prednisone taper. Lovenox for DVT prophylaxis. Progress note dated June 21, 2024. This is an 79-year-old male with a history of severe COPD. FEV1 is 39% of predicted. Unfortunately, the patient does continue to smoke cigarettes. He was admitted with a diagnosis of COPD exacerbation. This morning, a rapid response team was called to this patient's bed, in room 476. The patient was very short of breath. He was placed on BiPAP, 12/5 and 40%. Blood gases were ordered. A chest x-ray was ordered. He received some Ativan and Xanax. He is getting lactated Ringer's at 50 cc an hour. The patient is a DO NOT INTUBATE patient. White count 11.6, hemoglobin 12.4, hematocrit 36.3, platelet count normal. Repeat blood gases show pO2 of 52, pCO2 of 35, and a pH of 7.49. At this point, the BiPAP was changed to 16/5. The FiO2 was increased to 50%. Sodium 143, potassium 4.3, chlorides 108, CO2 29, BUN 22, creatinine 1.30. Calcium is 8.8. Sputum and blood sampling has been negative thus far. Chest x- ray shows changes of COPD, without evidence of airspace consolidation. On 06/22/2024, the patient is being seen for a follow-up. This morning, the patient is on a BiPAP pressure of 16 over 5 cm of water with FiO2 of 60% and the patient is on a lactated Ringer at rate of 50 cc an hour. Chest x-ray was done this morning and it showed patchy infiltrates in lung bases more so on the right consistent with pneumonia. Most recent bronchoscopy yielded stenotrophomonas and the patient has grown Pseudomonas in the past. The patient is currently on IV Zosyn. He remains on DuoNeb nebulized treatments [id number]. He is on Symbicort. He is on IV Solu-Medrol. He is awake and alert and communicating. The white cell count is at 7 with hemoglobin of 10 and platelet count of 189. BUN is 27 with a creatinine of 1.36 and a sodium levels at 138. He is weak and quite debilitated on a chronic basis. Bactrim will be also added to his regimen. On 06/23/2024, the patient is still on Airvo at 35 L with an FiO2 of 50% with a pulse ox of 96%. Feels somewhat improved compared to yesterday. Continues to have a congested cough with limited amount of sputum production. Antibiotic modification was done yesterday and the patient is currently on a combination of Zosyn and IV Bactrim. Renal function remained stable. On today's blood work, the creatinine is at 1.24 with a BUN of 23. Rest of the electrolytes are all stable and within normal limits. White cell count of 5.3 with a hemoglobin of 9. A repeat chest x-ray from today shows some bibasilar pulmonary filtrates slightly worse on the left along with background COPD. Remains on bronchodilators. Remains on steroids. Remains on lactated Ringer at 50 cc an hour. Remains on Symbicort and DuoNeb updrafts [id number]. Home medications have been also resumed. 06/24/2024, the patient remains on Airvo 35 L with an FiO2 of 55%. The patient continues to have respiratory difficulties, cough, congestion, unable to bring up much of sputum. No significant improvement in respiratory status over the past 24 hours. The patient remains on a combination of IV Bactrim and IV Zosyn. The white cell count is at 8.1. Hemoglobin is 8.6 and a platelet count of 142. BUN is 25 with a creatinine of 1.22. He is getting progressively more debilitated and weak. Spending most of the time in bed. Oral intake is diminished and the patient had minimal amount of old. Earlier this morning. I plan to do a bronchoscopy on this patient in the afternoon to further optimize her respiratory status. Suspect mucous plugs. 06/25/2024, the patient is post bronchoscopy. The patient remains on Airvo 35 L with an FiO2 of 55%. Continues to struggle with his breathing. Cough and congestion is improved compared to yesterday post bronchoscopy. Repeat bronchoalveolar lavage was done and results are still pending. Most recent spu katt sample is showing Eden, Aspergillus and stenotrophomonas. The patient remains on Bactrim IV. Remains on IV Solu-Medrol. Remains on DuoNeb nebulized treatments [id number]. The white cell count of 7.4 with a hemoglobin 9.5 and a platelet count of 197. Sodium is at 136, BUN 25 with a creatinine of 1.1. ID is on the case. No other new complaints otherwise for now. 06/26/2024, patient is being seen for a follow-up. The patient is sitting up in a chair. Awaiting the results from the bronchoscopy and bronchial lavage. Most recent sputum analysis was positive for stenotrophomonas in addition to Aspergillus and candidal elements. Earlier this morning, the patient was on Airvo. He was at 35 L with an FiO2 of 55%. I took him off the Airvo and I put him on 60 days of oxygen by nasal cannula and his current pulse ox 94%. He remains bronchospastic and wheezy. Awaiting consistent 0.8 edema 9.5 and a platelet count of 199. BUN is 25 with a creatinine of 1.09 and sodium levels at 135. Communicating. Awake. No chest pain. No other new complaints since yesterday. Awaiting results of the bronchial lavage and the patient remains on IV Bactrim. In terms of his renal function, the patient's creatinine is stable at 1.09. 06/27/2024, the patient continues to have labored breathing. After being on nasal cannula for yesterday, this patient became more short of breath this morning. Based on that, the patient was placed again on Airvo and the patient is currently on 50 L with FiO2 of 60%. Pulse ox in the order of 94 to 95%. He remains on IV Bactrim. Continues to encounter cough and congestion. Unable to bring up much of sputum. No chest pain. Looks quite lethargic and weak. His white cell count today is at 10.2 with a hemoglobin 9.9. BUN is 23 with a c reatinine of 1.1. Rest of the medication remains unchanged. Remains on IV Solu-Medrol. Remains on DuoNeb nebulized treatments [id number]. Symbicort will be discontinued and the patient was placed on a combination of Perforomist and Pulmicort. Oral intake remains quite diminished. 06/28/2024, the patient continues to struggle with his breathing. He remains on Airvo and is alternating it with a BiPAP. I am going to switch to BiPAP at a pressure of 10 over 5 cm of water and FiO2 of 50%. Meanwhile, this morning, he remains on Airvo and is currently on 50 L with an FiO2 of 60%. Congested cough. Remains bronchospastic and wheezy. Remains weak and debilitated. Oral intake remains quite diminished. Repeat arthroscopy and lavage yielded no microbial growth and the most recent cultures came back negative. Meanwhile, based on the earlier cultures of stenotrophomonas, the patient remains on Bactrim. Creatinine is stable at 1.2. Responded adequately to Lasix and the patient p roduced approximately 2.8 L of negative fluid balance over the past 24 hours. Potassium is at 4.8. WBC count is at 8.4 with hemoglobin 8.6. Chest x-ray findings are essentially unchanged and the patient has stable lower lobe pulmonary filtrates which are essentially unchanged. Seen today on 06/29/2024, patient is feeling better today, breathing easier. However he remains on Airvo with FiO2 of 60% and flow of 55 L/min. Patient is on antibiotics for his pneumonia and positive multi microbial cultures from his sputum and his BAL. This is being addressed accordingly, however the main organism seems to be Stenotrophomonas maltophilia WBC count is 9.8 hemoglobin is 9 basic metabolic profile is normal BUN is 24 creatinine 1.23. This x-ray from yesterday continues show bilateral extensive infiltrates specially at the bases of his right lung and left lung/lingula Patient was evaluated today on 06/30/2024, patient is basically about the same, continues to have cough, shortness of breath, significant amount of secretions, on 8 L high flow nasal cannula, patient is developing worsening electrolytes imbalance, renal functioning is not changing much creatinine 1.19, however his potassium is 5.8 sodium is 129 WBC 16.1. Chest x-ray continues to show significant airspace disease involving the left lower lobe and lingula as well as the right lower lobe, infectious disease is concerned about Bactrim with hyperkalemia, and recommending IV Levaquin instead. Patient was seen today on 07/01/2024, patient feels worse today, he is on Airvo at 70% FiO2 and 55 L flow, continues to have intermittent cough wheezing shortness of breath, cough is productive. His antibiotics were changed yes terday from Bactrim to Levaquin, being followed by infectious disease. 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 Basic metabolic profile is better potassium is down to 5.1 BUN is 28 creatinine 1.25. Family is at bedside, and I discussed his pulmonary status with the family Reevaluate today on 07/02/2024, patient is feeling a bit better today compared to yesterday. Breathing easier, CT of the chest was reviewed patient has significant COPD/emphysema and bilateral airspace disease patient remains on Levaquin, bronchodilators, and steroids, patient is also receiving multiple bronchodilators, some improvement but not back to baseline. Still requiring Airvo with high flow and high FiO2. WBC count today is 13.6 hemoglobin 9.8 basic metabolic profile is normal BUN is 30 creatinine 1.38 Patient was seen today on 07/03/2024, continues to steadily improve, however he remains on Airvo, 40 L flow and 60% FiO2 O2 saturation 96%. Less cough less wheezing less shortness of breath, he seems more comfortable today than he felt in the last few days. WBC count is 12.6 hemoglobin 8.9 basic metabolic profile is normal BUN is 27 creatinine 1.27, better today compared to yesterday. Patient remains on Levaquin Reevaluate today on 07/04/2024, patient continues to feel better today, however he is on relatively higher FiO2 and higher flow via Airvo. He is up to 65% and his flow is 50 L. Patient is comfortable, continues to have intermittent cough wheezing, cough is productive with yellow phlegm. No fever no chills no hemoptysis, remains on Levaquin. Patient was evaluated today on 07/05/2024, remains on Airvo, patient is doing well today, less cough less wheezing less shortness of breath remains on Levaquin. WBC count is 13.4 hemoglobin 9.3 basic metabolic profile is normal BUN is 32 creatinine 1.05 Progress note dated July 06, 2024. 79-year-old male who is now been in the hospital for 18 days. He was admitted with a diagnosis of acute on chronic respiratory failure. Currently, the patient is on Airvo, at 50 L/min with an FiO2 of 60%. He is not receiving any IV fluids. I last saw him on June 21, 2 weeks ago. Current labs include a white count of 16.6, hemoglobin 9.9, hematocrit 29.8, and a platelet count of 145,000. Sodium 133, potassium 4.8, chlorides 99, CO2 27, BUN 36, creatinine 0.95. Albumin is 2.8. Glucose is 197. Chest x-ray shows multifocal airspace opacities, previously unchanged from the x-ray on June 30. Progress note dated July 07, 2024. 79-year-old male seen in room 363. He has not been in the hospital for 19 days. The patient continues on Airvo, with settings of 60 L/min, and an FiO2 of 94%. He is not receiving any IV fluids. The patient is receiving albuterol sulfate and ipratropium breathing treatments, Solu-Medrol, budesonide, formoterol, and also Levaquin. The patient complains of difficulty breathing. He is currently laying flat in bed. White count 13.4, hemoglobin 9.3, hematocrit 27.5, platelet count of 119,000. Sodium 134, potassium 4.3, chloride 99, CO2 32, BUN 41, creatinine 1. Albumin is 2.6. Chest x-ray from July 06, shows multifocal airspace opacities, which are unchanged. Progress note dated July 08, 2024. 79-year-old male with a history of severe/end-stage COPD. The patient is seen today in room 363. The patient has not been in the hospital for 20 days. The patient continues on Airvo, at 50 L/min with an FiO2 of 85%. Patient really has not made any headway. Antibiotic in my opinion can be discontinued. I think a hospice consult or palliative care consult would be very appropriate. White count is 14.6, hemoglobin 10.1, hematocrit 30.2, and platelet count 127,000. Sodium 135, potassium 4.5, chlorides 99, CO2 29, BUN 41, and creatinine 0.83. Albumin is 2.8. Glucose is 229. Sputum samples from June 22 showed Aspergillus fumigatus, Eden albicans, and Stenotrophomonas maltophilia. Progress note dated July 09, 2024. 79-year-old male seen in room 363. The patient was admitted with a diagnosis of severe end-stage COPD. The patient has been on Airvo for a number of days. Current settings include 60 L/min with an FiO2 of 83%. The patient is not receiving any IV fluids. The patient continues to be significantly short of breath. Current labs include a white count 12.4, hemoglobin 8.9, hematocrit 26.6, and a platelet count of 107,000. Sodium 133, potassium 4.7, chlorides 100, CO2 29, BUN 41, creatinine 0.8. Calcium is 8.1. Albumin 2.5. The patient had a chest x-ray, dated July 08, 2024. It was compared to an x-ray that was done 2 days prior. It essentially shows no changes, with bibasilar and bilateral patchy opacities. Objective - Vital Signs Vital signs: Vital Signs Temp 98.1 F 07/09/24 12:00 Pulse 95 07/09/24 12:49 Resp 19 07/09/24 12:00 BP 141/70 07/09/24 12:00 Pulse Ox 92 L 07/09/24 12:49 FiO2 85 07/09/24 12:00 Intake & Output 07/08/24 07/09/24 07/09/24 18:59 06:59 18:59 Intake Total 838 420 Output Total 1000 870 Balance -162 -870 420 Intake: Oral 838 420 Output: Urine 1000 870 Other: Voiding Method Indwelling Catheter Indwelling Catheter Indwelling Catheter - Exam Patient is very short of breath, with conversational dyspnea, and use of accessory muscles, currently on AIRVO. HEENT examination is grossly unremarkable. Mucous membranes are moist. No oral lesions. Neck supple. Full range of motion. No adenopathy thyromegaly or neck vein distention. Cardiovascular examination reveals regular rhythm rate. S1-S2 normal. No S3 or S4. No discernible murmur noted. Heart sounds are distant. Lungs reveal scattered bilateral rhonchi and expiratory wheezes. No crackles. Breath sounds equal but diminished throughout. Abdomen soft and without bowel sounds. No masses or tenderness. Extremities are intact. No cyanosis clubbing or edema. Skin is without rash or lesion. Neurologic examination is brief but nonfocal. - Labs CBC & Chem 7: 07/09/24 06:55 07/09/24 06:55 Labs: Abnormal Lab Results - Last 24 Hours (Table) 07/08/24 07/08/24 07/09/24 Range/Units 16:58 20:04 06:13 WBC (3.8-10.6) k/uL RBC (4.30-5.90) m/uL Hgb (13.0-17.5) gm/dL Hct (39.0-53.0) % RDW (11.5-15.5) % Plt Count (150-450) k/uL Sodium (137-145) mmol/L BUN (9-20) mg/dL Glucose (74-99) mg/dL POC Glucose (mg/dL) 289 H 262 H 257 H (70-110) mg/dL Calcium (8.4-10.2) mg/dL Total Protein (6.3-8.2) g/dL Albumin (3.5-5.0) g/dL 07/09/24 07/09/24 07/09/24 Range/Units 06:55 06:55 11:29 WBC 12.4 H (3.8-10.6) k/uL RBC 2.88 L (4.30-5.90) m/uL Hgb 8.9 L (13.0-17.5) gm/dL Hct 26.6 L (39.0-53.0) % RDW 15.7 H (11.5-15.5) % Plt Count 107 L (150-450) k/uL Sodium 133 L (137-145) mmol/L BUN 41 H (9-20) mg/dL Glucose 227 H (74-99) mg/dL POC Glucose (mg/dL) 229 H (70-110) mg/dL Calcium 8.1 L (8.4-10.2) mg/dL Total Protein 4.6 L (6.3-8.2) g/dL Albumin 2.5 L (3.5-5.0) g/dL Assessment and Plan Assessment: Acute on chronic hypoxic respiratory failure secondary to an acute exacerbation of COPD. Frequent admissions for COPD exacerbation. Recent discharge on 06/07/2024. Rece nt bronchoscopy of 06/03/2024 revealed Stenotrophomonas maltophilia. Chronic and ongoing tobacco dependence Oxygen dependent chronic obstructive pulmonary disease with an FEV1 value 39% of predicted. Chronic tobacco dependence of greater than 60 years. Right upper lobe PET avid pulmonary nodule which is being monitored on outpatient basis. History of non-Hodgkin's lymphoma. Chronic stage III kidney disease. Coronary disease with previous coronary artery bypass surgery in 2001. History of abdominal aortic aneurysm status post stent placement in March 2022. Carotid stenosis S/P endarterectomy. History of ESBL E. coli in BAL, 2021. Hyperlipidemia. Hypertension. Plan: Plan dated June 21, 2024. The patient is transferred to the intensive care unit, as a 3 S. overflow. He is placed on BiPAP, with settings of 16/5, and 50%. Blood gases have been ordered as well as a chest x-ray. The patient received some Ativan for sedation and anxiety control. He is getting lactated Ringer's at 50 cc an hour. I confirmed with the nurses that the patient is a DO NOT INTUBATE patient. Labs, x-rays, and all medications are reviewed. The patient's overall prognosis remains poor. He has severe COPD with an FEV1 that is only 39% of predicted. Plan dated July 06, 2024. I saw the patient last 2 weeks ago. The patient was on BiPAP at that time. Currently he is on Airvo, at 50 L/min, with an FiO2 60%. He is not receiving any IV fluids. Labs, x-rays, and all medications are reviewed. The patient's overall prognosis remains very guarded. Patient continues on Levaquin, as per infectious diseases. The rest of his medications are appropriate. The patient is a DO NOT INTUBATE patient. We will continue to follow make recommendations along the way. Plan dated July 07, 2024. The patient is seen in room 363. He continues on Airvo, with settings of 60 L/min with an FiO2 of 94%. The patient continues on all appropriate medications including updrafts with albuterol sulfate and ipratropium bromide, updrafts with budesonide, and formoterol, Levaquin, and Solu-Medrol. Labs, x-rays, and medications are reviewed. We will continue to follow. The patient is not to be intubated. Prognosis is poor. Plan dated July 08, 2024. The patient is seen today in room 363. This is an 79-year-old male with history of severe end-stage COPD. The patient is currently on Airvo, at 50 L/min, with an FiO2 of 85%. He is not receiving any IV fluids. The patient really has not made any progress. The patient is still very short of breath. The patient has been in the hospital for 20 days. I think it is very appropriate to consider hospice consultation, or palliative care consultation. Will leave that up to the primary service, but that is our recommendation. We will continue to follow the patient. Labs, x-rays, and all medications are reviewed. Prognosis is very poor. Plan dated July 09, 2024. The patient is seen today in room 363. No additional recommendations are made at this time. The patient continues on Airvo. He is receiving maximal medical therapy. We are hoping that he turns a corner. We have talking to the family about CODE STATUS, and palliative/hospice care. The patient remains a full code with instructions as noted above. We will continue to follow. The patient does not want to be intubated. Labs, x-rays, medications are reviewed. Prognosis is poor. Time with Patient: Less than 30
--- NOTE | 2024-07-09 14:37 | P.PN ---
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 Apparently his O2 sat was in the 70s when EMS arrived on his 3L NC. Recently admitted from 06/05-06/07 for similar complaints, COVID + at that time, treated with bronchodilators, Zosyn, SoluMedrol and discharged on a Prednisone taper and to complete a course of Ciprofloxacin. He recently underwent bronchoscopy with BAL with Dr. Cano on 05/13 with cultures resulting in Pseudomonas and eden albicans. He was started on Ciprofloxacin at that time. He underwent repeat bronchoscopy with BAL with Dr. Cano on 06/03 which grew stenotrophomonas maltophilia. He was continued on Ciprofloxacin and according to the patient has been taking it over the past 5-6 weeks. In the ED he underwent extensive evaluation. Tmax 100F, BP 119/62, HR 102, RR 40, 91% on 3L. CBC, Coag panel, CMP significant for RBC 4, Hg 12.4, Hct 35.8, PT 9.9, bicarb 33, BUN 39, Cr 1.91, glu 131. Lactic acid 2.9. Troponin 0.054. EKG sinus tachycardia with RBBB. CXR showed COPD with patchy interstitial densities increased from previous CXRs. Patient is admitted for further workup and management. Patient seen by pulmonology and started on IV Zosyn and Bactrim. Patient also on IV steroids. Patient was on BiPAP. Patient weaned down to Airvo. Patient had another bronchoscopy done on 06/24/2024 that showed tracheobronchomalacia with copious thick secretions and mucous plugging. Sputum culture obtained at this time showing Aspergillus fumigatus, stenotrophomonas maltophilia, and Eden albicans. Patient currently on Bactrim 352 mg IVPB every [address] chest was completed showing small right pleural effusion and moderate to severe emphysema with right lower lobe 13 mm pulmonary nodule. Patient is now status post antibiotics. Continues to have poor respiratory function requiring Airvo [id number]. Consulted hospice. Subjective: Patient seen and examined at bedside. Overnight had increasing oxygen requirements. Denies any chest pain or cough. Pertinent positives and negatives as discussed above, a complete review of systems was performed and all other systems are negative. Vitals Signs Reviewed. General: Nontoxic, no distress, appears at stated age, chronically ill-appearing Derm: Warm, dry Head: Atraumatic, normocephalic, symmetric Eyes: EOMI, no lid lag, anicteric sclera Mouth: No lip lesion, mucus membranes moist Cardiovascular: S1S2 reg, no murmur Lungs: Bilateral rhonchi, no accessory muscle use, supplemental oxygen Abdominal: Soft, nontender to palpation, no guarding, no appreciable organomegaly Ext: No gross muscle atrophy, no edema, no contractures Neuro: CN II-XI grossly intact, no focal neuro deficits Psych: Alert, oriented, appropriate affect Data Reviewed Today: Pertinent Labs: WBC 12.4, hemoglobin 8.9, platelet 107, sodium 133, creatinine 0.8, blood sugars range between 2 27-2 62, magnesium 1.9 Imaging: No new imaging Assessment and Plan: Acute on chronic hypoxic respiratory failure, likely from COVID sequelae comp licated by development of pseudomonas and stenotropomonas maltophilia pneumonia Sepsis upon admission, secondary to above Acute on chronic COPD exacerbation, secondary to above Generalized weakness and fatigue secondary to physical decomposition resulting from prolonged hospitalization -Had extensive discussion with family and patient with regards to goals of care. Questions were answered. Patient has very poor prognosis. Recommendations made for hospice. Family wants to talk it over before making final decision. -Continue with Symbicort 2 puffs INH BID. DuoNebs scheduled Q4H and as needed for wheezing/shortness of breath. Singulair 10 mg PO HS, and IV steroids with SoluMedrol 60 mg IV Q8H. -Pulmonology note reviewed, continue as above -Continue weaning oxygen -ID also following, patient's status post IV antibiotics Pulmonary nodule, incidental finding on CT. Recommend outpatient close monitoring/surveillance with repeat CT in 3 months. Hyponatremia. Stable Hyerkalemia. Resolved Elevated troponin. Troponins flat and ACS ruled out. Continue with ASA 81 mg PO QD. Lipitor 40 mg PO QHS. Plavix 75 mg PO QD. Metoprolol 25 mg PO QD. 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 Hemoglobin A1c 7.3. Continue glycemic protocol with NovoLog sliding scale insulin and scheduled NovoLog 8 units 3 times daily with meals, Levemir 10 nightly added Acute kidney injury on CKD stage IIIa. Resolved Lactic acidosis. Resolved Acute blood loss anemia. Stable Chronic conditions: Systolic CHF with EF 40-45%: Appears euvolemic. Hypertension: Continue metoprolol 25 mg daily. Dyslipidemia: Continue Lipitor 40 mg nightly. Non-Hodgkins lymphoma. Continue to follow-up outpatient with careers counsellor. CAD with CABG: Continue daily cardiac medication regimen with aspirin 81 mg daily, Lipitor 40 mg nightly, Plavix 75 mg daily, and metoprolol 25 mg daily. Carotid stenosis with endarterectomy: Continue daily medication regimen with aspirin 81 mg daily, Lipitor 40 mg nightly, and Plavix 75 mg daily. DVT ppx: SCDs Code status: DNI Anticipated discharge place: Pending clinical course Anticipated discharge time: Pending clinical course Objective - Vital Signs Vital signs: Vital Signs Temp 98.1 F 07/09/24 12:00 Pulse 95 07/09/24 12:49 Resp 19 07/09/24 12:00 BP 141/70 07/09/24 12:00 Pulse Ox 92 L 07/09/24 12:49 FiO2 85 07/09/24 12:00 Intake & Output 07/08/24 07/09/24 07/09/24 18:59 06:59 18:59 Intake Total 838 538 Output Total 1000 870 Balance -162 -870 538 Intake: Oral 838 538 Output: Urine 1000 870 Other: Voiding Method Indwelling Catheter Indwelling Catheter Indwelling Catheter - Labs CBC & Chem 7: 07/09/24 06:55 07/09/24 06:55 Labs: Abnormal Lab Results - Last 24 Hours (Table) 07/08/24 07/08/24 07/09/24 Range/Units 16:58 20:04 06:13 WBC (3.8-10.6) k/uL RBC (4.30-5.90) m/uL Hgb (13.0-17.5) gm/dL Hct (39.0-53.0) % RDW (11.5-15.5) % Plt Count (150-450) k/uL Sodium (137-145) mmol/L BUN (9-20) mg/dL Glucose (74-99) mg/dL POC Glucose (mg/dL) 289 H 262 H 257 H (70-110) mg/dL Calcium (8.4-10.2) mg/dL Total Protein (6.3-8.2) g/dL Albumin (3.5-5.0) g/dL 07/09/24 07/09/24 07/09/24 Range/Units 06:55 06:55 11:29 WBC 12.4 H (3.8-10.6) k/uL RBC 2.88 L (4.30-5.90) m/uL Hgb 8.9 L (13.0-17.5) gm/dL Hct 26.6 L (39.0-53.0) % RDW 15.7 H (11.5-15.5) % Plt Count 107 L (150-450) k/uL Sodium 133 L (137-145) mmol/L BUN 41 H (9-20) mg/dL Glucose 227 H (74-99) mg/dL POC Glucose (mg/dL) 229 H (70-110) mg/dL Calcium 8.1 L (8.4-10.2) mg/dL Total Protein 4.6 L (6.3-8.2) g/dL Albumin 2.5 L (3.5-5.0) g/dL
--- NOTE | 2024-07-09 14:50 | P.PN ---
Subjective Progress Note Date: 07/09/24 Principal diagnosis: Reason for follow-up is pneumonia Patient is a 79-year-old male with a past medical history significant for non-Hodgkin lymphoma COPD hypertension hyperlipidemia heart failure recently diagnosed with a COVID-19 presented to hospital for evaluation of increasing shortness of breath and cough sputum production did have patient evaluated on the chest x-ray concerning for pneumonia. On today's evaluation that is 07/09/2024,the patient remains to be afebrile, patient is on high flow nasal cannula oxygen currently on 85% FiO2 still complaining of shortness of breath no worsening cough or sputum production no nausea vomiting no abdominal pain or diarrhea. Patient white count is 12.4 creatinine 0.80 Objective - Vital Signs Vital signs: Vital Signs Temp 97.4 F L 07/09/24 07:30 Pulse 89 07/09/24 11:23 Resp 19 07/09/24 11:17 BP 143/68 07/09/24 11:17 Pulse Ox 99 07/09/24 11:23 FiO2 80 07/09/24 11:23 Intake & Output 07/08/24 07/09/24 07/09/24 18:59 06:59 18:59 Intake Total 838 420 Output Total 1000 870 Balance -162 -870 420 Intake: Oral 838 420 Output: Urine 1000 870 Other: Voiding Method Indwelling Catheter Indwelling Catheter Indwelling Catheter - Exam GENERAL DESCRIPTION: An elderly male up in bed in no distress RESPIRATORY SYSTEM: Unlabored breathing , coarse breath sounds bilaterally HEART: S1 S2 regular rate and rhythm , ABDOMEN: Soft , no tenderness EXTREMITIES: No edema feet - Labs CBC & Chem 7: 07/09/24 06:55 07/09/24 06:55 Labs: Abnormal Lab Results - Last 24 Hours (Table) 07/08/24 07/08/24 07/09/24 Range/Units 16:58 20:04 06:13 WBC (3.8-10.6) k/uL RBC (4.30-5.90) m/uL Hgb (13.0-17.5) gm/dL Hct (39.0-53.0) % RDW (11.5-15.5) % Plt Count (150-450) k/uL Sodium (137-145) mmol/L BUN (9-20) mg/dL Glucose (74-99) mg/dL POC Glucose (mg/dL) 289 H 262 H 257 H (70-110) mg/dL Calcium (8.4-10.2) mg/dL Total Protein (6.3-8.2) g/dL Albumin (3.5-5.0) g/dL 07/09/24 07/09/24 Range/Units 06:55 06:55 WBC 12.4 H (3.8-10.6) k/uL RBC 2.88 L (4.30-5.90) m/uL Hgb 8.9 L (13.0-17.5) gm/dL Hct 26.6 L (39.0-53.0) % RDW 15.7 H (11.5-15.5) % Plt Count 107 L (150-450) k/uL Sodium 133 L (137-145) mmol/L BUN 41 H (9-20) mg/dL Glucose 227 H (74-99) mg/dL POC Glucose (mg/dL) (70-110) mg/dL Calcium 8.1 L (8.4-10.2) mg/dL Total Protein 4.6 L (6.3-8.2) g/dL Albumin 2.5 L (3.5-5.0) g/dL Assessment and Plan (1) Pneumonia Current Visit: Yes Status: Acute Code(s): J18.9 - PNEUMONIA, UNSPECIFIED ORGANISM SNOMED Code(s): 486677975 (2) Sepsis Current Visit: No Status: Acute Code(s): A41.9 - SEPSIS, UNSPECIFIED ORGANISM SNOMED Code(s): 42926003 Plan: 1patient presented to hospital with sepsis in this patient who did have fever tachycardia mild hypotension source is likely pneumonia in this patient who recently did have a COVID-19 will need to cover for resistant gram negative to be the likely etiology and the patient recently grew Pseudomonas in his BAL culture 2-blood cultures are so far negative initial sputum has been negative, urine for Legionella antigen was negative mycoplasma IgM not elevated, repeat sputum is growing stenotrophomonas as well as Aspergillus and Eden 3 Aspergillus CF antibodies came back negative, and Aspergillus galactomannan requested but no results 4patient remains to be afebrile and the patient white count is trending down, patient is still requiring high flow nasal cannula oxygen, Levaquin has been discontinued this morning by pulmonary will be monitored closely off antibiotic Dictation was produced using [employer] dictation software. please excuse any grammatical, word or spelling errors. Time with Patient: Less than 30
[2024-07-09 16:38] LABS: Glucose,Whole Blood 242 mg/dL (70-110)
[2024-07-09] MEDS: INSULIN ASPART (NovoLOG) 100 UNIT/ML VIAL SQ SCH ×2 (16:43)
[2024-07-09 20:46] LABS: Glucose,Whole Blood 204 mg/dL (70-110)
[2024-07-09] MEDS: INSULIN DETEMIR (LEVEMIR) 100 UNIT/ML SYR SQ SCH (21:11)
[2024-07-10 02:08] LABS: Glucose,Whole Blood 237 mg/dL (70-110)
[2024-07-10 05:37] LABS: Glucose,Whole Blood 204 mg/dL (70-110)
[2024-07-10 09:18] LABS: Basophils % (A) 0 %; Eosinophils % (A) 0 %; HCT 29.6 % (39.0-53.0); HGB 9.8 gm/dL (13.0-17.5); Lymphocytes # (A) 0.7 k/uL (1.0-4.8); Lymphocytes % (A) 7 %; MCH 30.7 pg (25.0-35.0); Monocytes # (A) 0.4 k/uL (0-1.0); Monocytes % (A) 3 %; Neutrophils # (A) 9.4 k/uL (1.3-7.7); Neutrophils % (A) 88 %; Platelet Count 110 k/uL (150-450); RBC 3.18 m/uL (4.30-5.90); RDW 15.5 % (11.5-15.5); WBC 10.7 k/uL (3.8-10.6)
[2024-07-10 09:47] LABS: ALT 29 U/L (4-49); AST 33 U/L (17-59); African American GFR (CKD) >90 (>60 ml/min/1.73 sqM); Albumin 2.7 g/dL (3.5-5.0); Alkaline Phosphatase 146 U/L (38-126); Anion Gap 3 mmol/L; Blood Urea Nitrogen 45 mg/dL (9-20); Calcium 8.5 mg/dL (8.4-10.2); Carbon Dioxide 30 mmol/L (22-30); Chloride 101 mmol/L (98-107); Glucose 142 mg/dL (74-99); Magnesium 1.8 mg/dL (1.6-2.3); Non-African American GFR(CKD) 82 (>60 ml/min/1.73 sqM); Potassium 4.6 mmol/L (3.5-5.1); Sodium 134 mmol/L (137-145); Total Bilirubin 0.5 mg/dL (0.2-1.3); Total Protein 4.9 g/dL (6.3-8.2)
[2024-07-10 12:45] LABS: Glucose,Whole Blood 247 mg/dL (70-110)
--- NOTE | 2024-07-10 12:47 | P.PN ---
Subjective Progress Note Date: 07/10/24 Principal diagnosis: Reason for follow-up is pneumonia Patient is a 79-year-old male with a past medical history significant for non-Hodgkin lymphoma COPD hypertension hyperlipidemia heart failure recently diagnosed with a COVID-19 presented to hospital for evaluation of increasing shortness of breath and cough sputum production did have patient evaluated on the chest x-ray concerning for pneumonia. On today's evaluation that is 07/10/2024, the patient continues to be afebrile, the patient is on high flow nasal oxygen FiO2 of 75% still complaining of shortness of breath he also have a cough and bring up some sputum no hemoptysis no nausea vomiting abdominal pain or diarrhea. Patient white count is down to 10.7, creatinine 0.85 Objective - Vital Signs Vital signs: Vital Signs Temp 98.2 F 07/10/24 07:53 Pulse 91 07/10/24 11:36 Resp 22 07/10/24 07:53 BP 137/73 07/10/24 07:53 Pulse Ox 95 07/10/24 11:36 FiO2 75 07/10/24 11:36 Intake & Output 07/09/24 07/10/24 07/10/24 18:59 06:59 18:59 Intake Total 656 0 190 Output Total 500 700 300 Balance 156 -700 -110 Weight 58.5 kg Intake: IV 10 Invasive Line 8 10 Oral 656 0 180 Output: Urine 500 700 300 Other: Voiding Method Indwelling Catheter Indwelling Catheter Indwelling Catheter # Bowel Movements 1 - Exam GENERAL DESCRIPTION: An elderly male up in bed in no distress RESPIRATORY SYSTEM: Unlabored breathing , coarse breath sounds bilaterally HEART: S1 S2 regular rate and rhythm , ABDOMEN: Soft , no tenderness EXTREMITIES: No edema feet - Labs CBC & Chem 7: 07/10/24 08:45 07/10/24 08:45 Labs: Abnormal Lab Results - Last 24 Hours (Table) 07/09/24 07/09/24 07/10/24 Range/Units 16:36 20:44 02:06 WBC (3.8-10.6) k/uL RBC (4.30-5.90) m/uL Hgb (13.0-17.5) gm/dL Hct (39.0-53.0) % Plt Count (150-450) k/uL Neutrophils # (1.3-7.7) k/uL Lymphocytes # (1.0-4.8) k/uL Sodium (137-145) mmol/L BUN (9-20) mg/dL Glucose (74-99) mg/dL POC Glucose (mg/dL) 242 H 204 H 237 H (70-110) mg/dL Alkaline Phosphatase (38-126) U/L Total Protein (6.3-8.2) g/dL Albumin (3.5-5.0) g/dL 07/10/24 07/10/24 07/10/24 Range/Units 05:35 08:45 08:45 WBC 10.7 H (3.8-10.6) k/uL RBC 3.18 L (4.30-5.90) m/uL Hgb 9.8 L (13.0-17.5) gm/dL Hct 29.6 L (39.0-53.0) % Plt Count 110 L (150-450) k/uL Neutrophils # 9.4 H (1.3-7.7) k/uL Lymphocytes # 0.7 L (1.0-4.8) k/uL Sodium 134 L (137-145) mmol/L BUN 45 H (9-20) mg/dL Glucose 142 H (74-99) mg/dL POC Glucose (mg/dL) 204 H (70-110) mg/dL Alkaline Phosphatase 146 H (38-126) U/L Total Protein 4.9 L (6.3-8.2) g/dL Albumin 2.7 L (3.5-5.0) g/dL 07/10/24 Range/Units 12:43 WBC (3.8-10.6) k/uL RBC (4.30-5.90) m/uL Hgb (13.0-17.5) gm/dL Hct (39.0-53.0) % Plt Count (150-450) k/uL Neutrophils # (1.3-7.7) k/uL Lymphocytes # (1.0-4.8) k/uL Sodium (137-145) mmol/L BUN (9-20) mg/dL Glucose (74-99) mg/dL POC Glucose (mg/dL) 247 H (70-110) mg/dL Alkaline Phosphatase (38-126) U/L Total Protein (6.3-8.2) g/dL Albumin (3.5-5.0) g/dL Assessment and Plan (1) Pneumonia Current Visit: Yes Status: Acute Code(s): J18.9 - PNEUMONIA, UNSPECIFIED ORGANISM SNOMED Code(s): 077194631 (2) Sepsis Current Visit: No Status: Acute Code(s): A41.9 - SEPSIS, UNSPECIFIED ORGANISM SNOMED Code(s): 91667269 Plan: 1patient presented to hospital with sepsis in this patient who did have fever tachycardia mild hypotension source is likely pneumonia in this patient who re cently did have a COVID-19 will need to cover for resistant gram negative to be the likely etiology and the patient recently grew Pseudomonas in his BAL culture 2-blood cultures are so far negative initial sputum has been negative, urine for Legionella antigen was negative mycoplasma IgM not elevated, repeat sputum is growing stenotrophomonas as well as Aspergillus and Eden 3 Aspergillus CF antibodies came back negative, and Aspergillus galactomannan requested but no results 4patient has been afebrile white count has normalized and received adequate IV Bactrim followed by Levaquin and will monitor closely off antibiotic. Multiple family members at bedside questions answered Dictation was produced using [employer] dictation software. please excuse any grammatical, word or spelling errors. Time with Patient: Less than 30
--- NOTE | 2024-07-10 13:18 | P.PN ---
Subjective Progress Note Date: 07/10/24 Principal diagnosis: COPD exacerbation. This is a very pleasant 79-year-old male patient who has a history of chronic and ongoing tobacco dependence, severe COPD maintained on a combination of Wixela and Spiriva on an outpatient basis. His previous pulmonary function test from 2020 has shown as an FEV1 of 39% of predicted at baseline. He is also oxygen dependent and utilizes oxygen on and off as requirement of oxygen becomes more needed whenever he gets an acute exacerbation. He has class III/IV chronic exertional dyspnea. He is also being monitored for a right upper lobe pulmonary nodule which is measuring 1.1 cm in size there was noted to be PET avid. Based on his advanced COPD and limited performance status he was recommended continue surveillance of this pulmonary nodule and decide at the later stage if SBRT would be of any benefit for this patient. He is also known to have coronary artery disease, has undergone previous coronary bypass surgery. He has also undergone previous stenting to SVG to RCA. Other comorbidities include hypertension, hyperlipidemia, previous history of non-Hodgkin's lymphoma treated with rituximab and the patient has carotid artery disease, abdominal aortic aneurysm with previous endovascular stent grafting and the patient has a aorto by iliac endovascular graft along with previous history of a upper GI bleed related to a duodenal ulcer which resulted into significant blood loss anemia. He has had frequent readmissions to the hospital. Recently discharged on June 07, 2024. His most recent bronchoscopy was performed on 06/03/2024 and was found to have Stenotrophomonas maltophilia and was treated with Ciprofloxa mindy. He came back to the emergency room yesterday 06/18/2024 with complaints of increasing shortness of breath, cough and congestion. Chest x-ray reveals interstitial opacities bilaterally. No pleural effusion. Mild hyperinflation. White count 6.2. Hemoglobin 12.4. Platelets 204. Sodium 139. Potassium 3.7. Bicarb 33. BUN 39. Creatinine 1.91. Glucose 131. Troponin 0.043. proBNP 571 . Procalcitonin 0.29. He has been initiated on DuoNeb inhalations, Symbicort, prednisone taper. Antibiotics in the form of Zosyn. Lovenox for DVT prophylaxis. He is seen in consultation on the regular medical floor. Currently sitting up in bed. He is dyspneic with conversation. Dyspneic with minimal exertion. Admits to still smoking 2 to 3 cigarettes a day. Currently maintaining O2 saturations in the 90s on 3 L/min per nasal cannula. He has been afebrile. Hemodynamically stable. The patient is seen today June 20, 2024 in follow-up on the regular medical floor. He is currently resting in bed. Awake and alert in no acute distress. He is breathing a bit easier today compared to yesterday. His only complaint is of sinus congestion. He is maintaining good O2 saturations in the 90s on 3 L/min per nasal cannula. No IV fluids. Blood and sputum cultures revealing no growth to date. Glucose 180. He is continued on DuoNeb and elations, Symbicort, Singulair, prednisone taper. Lovenox for DVT prophylaxis. Progress note dated June 21, 2024. This is an 79-year-old male with a history of severe COPD. FEV1 is 39% of predicted. Unfortunately, the patient does continue to smoke cigarettes. He was admitted with a diagnosis of COPD exacerbation. This morning, a rapid response team was called to this patient's bed, in room 476. The patient was very short of breath. He was placed on BiPAP, 12/5 and 40%. Blood gases were ordered. A chest x-ray was ordered. He received some Ativan and Xanax. He is getting lactated Ringer's at 50 cc an hour. The patient is a DO NOT INTUBATE patient. White count 11.6, hemoglobin 12.4, hematocrit 36.3, platelet count normal. Repeat blood gases show pO2 of 52, pCO2 of 35, and a pH of 7.49. At this point, the BiPAP was changed to 16/5. The FiO2 was increased to 50%. Sodium 143, potassium 4.3, chlorides 108, CO2 29, BUN 22, creatinine 1.30. Calcium is 8.8. Sputum and blood sampling has been negative thus far. Chest x- ray shows changes of COPD, without evidence of airspace consolidation. On 06/22/2024, the patient is being seen for a follow-up. This morning, the patient is on a BiPAP pressure of 16 over 5 cm of water with FiO2 of 60% and the patient is on a lactated Ringer at rate of 50 cc an hour. Chest x-ray was done this morning and it showed patchy infiltrates in lung bases more so on the right consistent with pneumonia. Most recent bronchoscopy yielded stenotrophomonas and the patient has grown Pseudomonas in the past. The patient is currently on IV Zosyn. He remains on DuoNeb nebulized treatments [id number]. He is on Symbicort. He is on IV Solu-Medrol. He is awake and alert and communicating. The white cell count is at 7 with hemoglobin of 10 and platelet count of 189. BUN is 27 with a creatinine of 1.36 and a sodium levels at 138. He is weak and quite debilitated on a chronic basis. Bactrim will be also added to his regimen. On 06/23/2024, the patient is still on Airvo at 35 L with an FiO2 of 50% with a pulse ox of 96%. Feels somewhat improved compared to yesterday. Continues to have a congested cough with limited amount of sputum production. Antibiotic modification was done yesterday and the patient is currently on a combination of Zosyn and IV Bactrim. Renal function remained stable. On today's blood work, the creatinine is at 1.24 with a BUN of 23. Rest of the electrolytes are all stable and within normal limits. White cell count of 5.3 with a hemoglobin of 9. A repeat chest x-ray from today shows some bibasilar pulmonary filtrates slightly worse on the left along with background COPD. Remains on bronchodilators. Remains on steroids. Remains on lactated Ringer at 50 cc an hour. Remains on Symbicort and DuoNeb updrafts [id number]. Home medications have been also resumed. 06/24/2024, the patient remains on Airvo 35 L with an FiO2 of 55%. The patient continues to have respiratory difficulties, cough, congestion, unable to bring up much of sputum. No significant improvement in respiratory status over the past 24 hours. The patient remains on a combination of IV Bactrim and IV Zosyn. The white cell count is at 8.1. Hemoglobin is 8.6 and a platelet count of 142. BUN is 25 with a creatinine of 1.22. He is getting progressively more debilitated and weak. Spending most of the time in bed. Oral intake is diminished and the patient had minimal amount of old. Earlier this morning. I plan to do a bronchoscopy on this patient in the afternoon to further optimize her respiratory status. Suspect mucous plugs. 06/25/2024, the patient is post bronchoscopy. The patient remains on Airvo 35 L with an FiO2 of 55%. Continues to struggle with his breathing. Cough and congestion is improved compared to yesterday post bronchoscopy. Repeat bronchoalveolar lavage was done and results are still pending. Most recent spu katt sample is showing Eden, Aspergillus and stenotrophomonas. The patient remains on Bactrim IV. Remains on IV Solu-Medrol. Remains on DuoNeb nebulized treatments [id number]. The white cell count of 7.4 with a hemoglobin 9.5 and a platelet count of 197. Sodium is at 136, BUN 25 with a creatinine of 1.1. ID is on the case. No other new complaints otherwise for now. 06/26/2024, patient is being seen for a follow-up. The patient is sitting up in a chair. Awaiting the results from the bronchoscopy and bronchial lavage. Most recent sputum analysis was positive for stenotrophomonas in addition to Aspergillus and candidal elements. Earlier this morning, the patient was on Airvo. He was at 35 L with an FiO2 of 55%. I took him off the Airvo and I put him on 60 days of oxygen by nasal cannula and his current pulse ox 94%. He remains bronchospastic and wheezy. Awaiting consistent 0.8 edema 9.5 and a platelet count of 199. BUN is 25 with a creatinine of 1.09 and sodium levels at 135. Communicating. Awake. No chest pain. No other new complaints since yesterday. Awaiting results of the bronchial lavage and the patient remains on IV Bactrim. In terms of his renal function, the patient's creatinine is stable at 1.09. 06/27/2024, the patient continues to have labored breathing. After being on nasal cannula for yesterday, this patient became more short of breath this morning. Based on that, the patient was placed again on Airvo and the patient is currently on 50 L with FiO2 of 60%. Pulse ox in the order of 94 to 95%. He remains on IV Bactrim. Continues to encounter cough and congestion. Unable to bring up much of sputum. No chest pain. Looks quite lethargic and weak. His white cell count today is at 10.2 with a hemoglobin 9.9. BUN is 23 with a c reatinine of 1.1. Rest of the medication remains unchanged. Remains on IV Solu-Medrol. Remains on DuoNeb nebulized treatments [id number]. Symbicort will be discontinued and the patient was placed on a combination of Perforomist and Pulmicort. Oral intake remains quite diminished. 06/28/2024, the patient continues to struggle with his breathing. He remains on Airvo and is alternating it with a BiPAP. I am going to switch to BiPAP at a pressure of 10 over 5 cm of water and FiO2 of 50%. Meanwhile, this morning, he remains on Airvo and is currently on 50 L with an FiO2 of 60%. Congested cough. Remains bronchospastic and wheezy. Remains weak and debilitated. Oral intake remains quite diminished. Repeat arthroscopy and lavage yielded no microbial growth and the most recent cultures came back negative. Meanwhile, based on the earlier cultures of stenotrophomonas, the patient remains on Bactrim. Creatinine is stable at 1.2. Responded adequately to Lasix and the patient p roduced approximately 2.8 L of negative fluid balance over the past 24 hours. Potassium is at 4.8. WBC count is at 8.4 with hemoglobin 8.6. Chest x-ray findings are essentially unchanged and the patient has stable lower lobe pulmonary filtrates which are essentially unchanged. Seen today on 06/29/2024, patient is feeling better today, breathing easier. However he remains on Airvo with FiO2 of 60% and flow of 55 L/min. Patient is on antibiotics for his pneumonia and positive multi microbial cultures from his sputum and his BAL. This is being addressed accordingly, however the main organism seems to be Stenotrophomonas maltophilia WBC count is 9.8 hemoglobin is 9 basic metabolic profile is normal BUN is 24 creatinine 1.23. This x-ray from yesterday continues show bilateral extensive infiltrates specially at the bases of his right lung and left lung/lingula Patient was evaluated today on 06/30/2024, patient is basically about the same, continues to have cough, shortness of breath, significant amount of secretions, on 8 L high flow nasal cannula, patient is developing worsening electrolytes imbalance, renal functioning is not changing much creatinine 1.19, however his potassium is 5.8 sodium is 129 WBC 16.1. Chest x-ray continues to show significant airspace disease involving the left lower lobe and lingula as well as the right lower lobe, infectious disease is concerned about Bactrim with hyperkalemia, and recommending IV Levaquin instead. Patient was seen today on 07/01/2024, patient feels worse today, he is on Airvo at 70% FiO2 and 55 L flow, continues to have intermittent cough wheezing shortness of breath, cough is productive. His antibiotics were changed yes terday from Bactrim to Levaquin, being followed by infectious disease. 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 Basic metabolic profile is better potassium is down to 5.1 BUN is 28 creatinine 1.25. Family is at bedside, and I discussed his pulmonary status with the family Reevaluate today on 07/02/2024, patient is feeling a bit better today compared to yesterday. Breathing easier, CT of the chest was reviewed patient has significant COPD/emphysema and bilateral airspace disease patient remains on Levaquin, bronchodilators, and steroids, patient is also receiving multiple bronchodilators, some improvement but not back to baseline. Still requiring Airvo with high flow and high FiO2. WBC count today is 13.6 hemoglobin 9.8 basic metabolic profile is normal BUN is 30 creatinine 1.38 Patient was seen today on 07/03/2024, continues to steadily improve, however he remains on Airvo, 40 L flow and 60% FiO2 O2 saturation 96%. Less cough less wheezing less shortness of breath, he seems more comfortable today than he felt in the last few days. WBC count is 12.6 hemoglobin 8.9 basic metabolic profile is normal BUN is 27 creatinine 1.27, better today compared to yesterday. Patient remains on Levaquin Reevaluate today on 07/04/2024, patient continues to feel better today, however he is on relatively higher FiO2 and higher flow via Airvo. He is up to 65% and his flow is 50 L. Patient is comfortable, continues to have intermittent cough wheezing, cough is productive with yellow phlegm. No fever no chills no hemoptysis, remains on Levaquin. Patient was evaluated today on 07/05/2024, remains on Airvo, patient is doing well today, less cough less wheezing less shortness of breath remains on Levaquin. WBC count is 13.4 hemoglobin 9.3 basic metabolic profile is normal BUN is 32 creatinine 1.05 Progress note dated July 06, 2024. 79-year-old male who is now been in the hospital for 18 days. He was admitted with a diagnosis of acute on chronic respiratory failure. Currently, the patient is on Airvo, at 50 L/min with an FiO2 of 60%. He is not receiving any IV fluids. I last saw him on June 21, 2 weeks ago. Current labs include a white count of 16.6, hemoglobin 9.9, hematocrit 29.8, and a platelet count of 145,000. Sodium 133, potassium 4.8, chlorides 99, CO2 27, BUN 36, creatinine 0.95. Albumin is 2.8. Glucose is 197. Chest x-ray shows multifocal airspace opacities, previously unchanged from the x-ray on June 30. Progress note dated July 07, 2024. 79-year-old male seen in room 363. He has not been in the hospital for 19 days. The patient continues on Airvo, with settings of 60 L/min, and an FiO2 of 94%. He is not receiving any IV fluids. The patient is receiving albuterol sulfate and ipratropium breathing treatments, Solu-Medrol, budesonide, formoterol, and also Levaquin. The patient complains of difficulty breathing. He is currently laying flat in bed. White count 13.4, hemoglobin 9.3, hematocrit 27.5, platelet count of 119,000. Sodium 134, potassium 4.3, chloride 99, CO2 32, BUN 41, creatinine 1. Albumin is 2.6. Chest x-ray from July 06, shows multifocal airspace opacities, which are unchanged. Progress note dated July 08, 2024. 79-year-old male with a history of severe/end-stage COPD. The patient is seen today in room 363. The patient has not been in the hospital for 20 days. The patient continues on Airvo, at 50 L/min with an FiO2 of 85%. Patient really has not made any headway. Antibiotic in my opinion can be discontinued. I think a hospice consult or palliative care consult would be very appropriate. White count is 14.6, hemoglobin 10.1, hematocrit 30.2, and platelet count 127,000. Sodium 135, potassium 4.5, chlorides 99, CO2 29, BUN 41, and creatinine 0.83. Albumin is 2.8. Glucose is 229. Sputum samples from June 22 showed Aspergillus fumigatus, Eden albicans, and Stenotrophomonas maltophilia. Progress note dated July 09, 2024. 79-year-old male seen in room 363. The patient was admitted with a diagnosis of severe end-stage COPD. The patient has been on Airvo for a number of days. Current settings include 60 L/min with an FiO2 of 83%. The patient is not receiving any IV fluids. The patient continues to be significantly short of breath. Current labs include a white count 12.4, hemoglobin 8.9, hematocrit 26.6, and a platelet count of 107,000. Sodium 133, potassium 4.7, chlorides 100, CO2 29, BUN 41, creatinine 0.8. Calcium is 8.1. Albumin 2.5. The patient had a chest x-ray, dated July 08, 2024. It was compared to an x-ray that was done 2 days prior. It essentially shows no changes, with bibasilar and bilateral patchy opacities. Progress note dated July 10, 2024. 79-year-old male with a history of severe COPD. The patient is again seen today in room 363. The patient remains on Airvo. Throughout this whole week, the patient has been Airvo dependent. His current settings include 60 L/min with an FiO2 77%. The patient is very short of breath with any activity. White count 10.7, hemoglobin 9.8, hematocrit 29.6, platelet count of 110,000. Sodium 134, potassium 4.6, chlorides 101, CO2 30, BUN 45, and creatinine 0.85. Glucose 142. Calcium 8.5. Objective - Vital Signs Vital signs: Vital Signs Temp 98.2 F 07/10/24 07:53 Pulse 103 H 07/10/24 12:40 Resp 24 07/10/24 12:40 BP 136/73 07/10/24 12:40 Pulse Ox 95 07/10/24 12:40 FiO2 76 07/10/24 12:40 Intake & Output 07/09/24 07/10/24 07/10/24 18:59 06:59 18:59 Intake Total 656 0 190 Output Total 500 700 600 Balance 156 -700 -410 Weight 58.5 kg Intake: IV 10 Invasive Line 8 10 Oral 656 0 180 Output: Urine 500 700 600 Other: Voiding Method Indwelling Catheter Indwelling Catheter Indwelling Catheter # Bowel Movements 1 - Exam Patient is very short of breath, with conversational dyspnea, and use of accessory muscles, currently on AIRVO. HEENT examination is grossly unremarkable. Mucous membranes are moist. No oral lesions. Neck supple. Full range of motion. No adenopathy thyromegaly or neck vein distention. Cardiovascular examination reveals regular rhythm rate. S1-S2 normal. No S3 or S4. No discernible murmur noted. Heart sounds are distant. Lungs reveal scattered bilateral rhonchi and expiratory wheezes. No crackles. Breath sounds equal but diminished throughout. Abdomen soft and without bowel sounds. No masses or tenderness. Extremities are intact. No cyanosis clubbing or edema. Skin is without rash or lesion. Neurologic examination is brief but nonfocal. - Labs CBC & Chem 7: 07/10/24 08:45 07/10/24 08:45 Labs: Abnormal Lab Results - Last 24 Hours (Table) 07/09/24 07/09/24 07/10/24 Range/Units 16:36 20:44 02:06 WBC (3.8-10.6) k/uL RBC (4.30-5.90) m/uL Hgb (13.0-17.5) gm/dL Hct (39.0-53.0) % Plt Count (150-450) k/uL Neutrophils # (1.3-7.7) k/uL Lymphocytes # (1.0-4.8) k/uL Sodium (137-145) mmol/L BUN (9-20) mg/dL Glucose (74-99) mg/dL POC Glucose (mg/dL) 242 H 204 H 237 H (70-110) mg/dL Alkaline Phosphatase (38-126) U/L Total Protein (6.3-8.2) g/dL Albumin (3.5-5.0) g/dL 07/10/24 07/10/24 07/10/24 Range/Units 05:35 08:45 08:45 WBC 10.7 H (3.8-10.6) k/uL RBC 3.18 L (4.30-5.90) m/uL Hgb 9.8 L (13.0-17.5) gm/dL Hct 29.6 L (39.0-53.0) % Plt Count 110 L (150-450) k/uL Neutrophils # 9.4 H (1.3-7.7) k/uL Lymphocytes # 0.7 L (1.0-4.8) k/uL Sodium 134 L (137-145) mmol/L BUN 45 H (9-20) mg/dL Glucose 142 H (74-99) mg/dL POC Glucose (mg/dL) 204 H (70-110) mg/dL Alkaline Phosphatase 146 H (38-126) U/L Total Protein 4.9 L (6.3-8.2) g/dL Albumin 2.7 L (3.5-5.0) g/dL 07/10/24 Range/Units 12:43 WBC (3.8-10.6) k/uL RBC (4.30-5.90) m/uL Hgb (13.0-17.5) gm/dL Hct (39.0-53.0) % Plt Count (150-450) k/uL Neutrophils # (1.3-7.7) k/uL Lymphocytes # (1.0-4.8) k/uL Sodium (137-145) mmol/L BUN (9-20) mg/dL Glucose (74-99) mg/dL POC Glucose (mg/dL) 247 H (70-110) mg/dL Alkaline Phosphatase (38-126) U/L Total Protein (6.3-8.2) g/dL Albumin (3.5-5.0) g/dL Assessment and Plan Assessment: Acute on chronic hypoxic respiratory failure secondary to an acute exacerbation of COPD. Frequent admissions for COPD exacerbation. Recent discharge on 06/07/2024. Rec ent bronchoscopy of 06/03/2024 revealed Stenotrophomonas maltophilia. Chronic and ongoing tobacco dependence Oxygen dependent chronic obstructive pulmonary disease with an FEV1 value 39% of predicted. Chronic tobacco dependence of greater than 60 years. Right upper lobe PET avid pulmonary nodule which is being monitored on outpatient basis. History of non-Hodgkin's lymphoma. Chronic stage III kidney disease. Coronary disease with previous coronary artery bypass surgery in 2001. History of abdominal aortic aneurysm status post stent placement in March 2022. Carotid stenosis S/P endarterectomy. History of ESBL E. coli in 2021. Hyperlipidemia. Hypertension. Plan: Plan dated June 21, 2024. The patient is transferred to the intensive care unit, as a 3 S. overflow. He is placed on BiPAP, with settings of 16/5, and 50%. Blood gases have been ordered as well as a chest x-ray. The patient received some Ativan for sedation and anxiety control. He is getting lactated Ringer's at 50 cc an hour. I confirmed with the nurses that the patient is a DO NOT INTUBATE patient. Labs, x-rays, and all medications are reviewed. The patient's overall prognosis remains poor. He has severe COPD with an FEV1 that is only 39% of predicted. Plan dated July 06, 2024. I saw the patient last 2 weeks ago. The patient was on BiPAP at that time. Currently he is on Airvo, at 50 L/min, with an FiO2 60%. He is not receiving any IV fluids. Labs, x-rays, and all medications are reviewed. The patient's overall prognosis remains very guarded. Patient continues on Levaquin, as per infectious diseases. The rest of his medications are appropriate. The patient is a DO NOT INTUBATE patient. We will continue to follow make recommendations along the way. Plan dated July 07, 2024. The patient is seen in room 363. He continues on Airvo, with settings of 60 L/min with an FiO2 of 94%. The patient continues on all appropriate medications including updrafts with albuterol sulfate and ipratropium bromide, updrafts with budesonide, and formoterol, Levaquin, and Solu-Medrol. Labs, x-rays, and medications are reviewed. We will continue to follow. The patient is not to be intubated. Prognosis is poor. Plan dated July 08, 2024. The patient is seen today in room 363. This is an 79-year-old male with history of severe end-stage COPD. The patient is currently on Airvo, at 50 L/min, with an FiO2 of 85%. He is not receiving any IV fluids. The patient really has not made any progress. The patient is still very short of breath. The patient has been in the hospital for 20 days. I think it is very appropriate to consider hospice consultation, or palliative care consultation. Will leave that up to the primary service, but that is our recommendation. We will continue to follow the patient. Labs, x-rays, and all medications are reviewed. Prognosis is very poor. Plan dated July 09, 2024. The patient is seen today in room 363. No additional recommendations are made at this time. The patient continues on Airvo. He is receiving maximal medical therapy. We are hoping that he turns a corner. We have talking to the family about CODE STATUS, and palliative/hospice care. The patient remains a full code with instructions as noted above. We will continue to follow. The patient does not want to be intubated. Labs, x-rays, medications are reviewed. Prognosis is poor. Plan dated July 10, 2024. The patient is seen today in room 363. The patient continues on Airvo. Settings include at 60 L/min, with an FiO2 of 77%. The patient really has not made any great progress. The patient is a no code patient does not wish to be intubated. Labs, x-rays, medications are reviewed. The patient is on a ppropriate medications clued bronchodilators and corticosteroids. We will continue to follow the patient, and make recommendations where appropriate. The patient's overall prognosis remains very poor. Time with Patient: Less than 30
--- NOTE | 2024-07-10 15:11 | P.PN ---
Subjective Progress Note Date: 07/10/24 Hospital Course: Patient is a very pleasant 79-year-old male with a past medical history of systolic CHF with EF 40 to 45%, COPD on 3L home O2, chronic kidney disease, hypertension, hyperlipidemia, non-Hodgkins lymphoma, CAD with CABG, AAA with stent, carotid stenosis with endarterectomy presents to the ED for shortness of breath. Apparently his O2 sat was in the 70s when EMS arrived on his 3L NC. Rec ently admitted from 06/05-06/07 for similar complaints, COVID + at that time, treated with bronchodilators, Zosyn, SoluMedrol and discharged on a Prednisone taper and to complete a course of Ciprofloxacin. He recently underwent bronchoscopy with BAL with Dr. Cano on 05/13 with cultures resulting in Pseudomonas and eden albicans. He was started on Ciprofloxacin at that time. He underwent repeat bronchoscopy with BAL with Dr. Cano on 06/03 which grew stenotrophomonas maltophilia. He was continued on Ciprofloxacin and according to the patient has been taking it over the past 5-6 weeks. In the ED he underwent extensive evaluation. Tmax 100F, BP 119/62, HR 102, RR 40, 91% on 3L. CBC, Coag panel, CMP significant for RBC 4, Hg 12.4, Hct 35.8, PT 9.9, bicarb 33, BUN 39, Cr 1.91, glu 131. Lactic acid 2.9. Troponin 0.054. EKG sinus tachycardia with RBBB. CXR showed COPD with patchy interstitial densities increased from previous CXRs. Patient is admitted for further workup and management. Patient seen by pulmonology and started on IV Zosyn and Bactrim. Patient also on IV steroids. Patient was on BiPAP. Patient weaned down to Airvo. Patient had another bronchoscopy done on 06/24/2024 that showed tracheobronchomalacia with copious thick secretions and mucous plugging. Sputum culture obtained at this time showing Aspergillus fumigatus, stenotrophomonas maltophilia, and Eden albicans. Patient currently on Bactrim 352 mg IVPB every [address] chest was completed showing small right pleural effusion and moderate to severe emphysema with right lower lobe 13 mm pulmonary nodule. Patient is now status post antibiotics. Continues to have poor respiratory function requiring Airvo [id number]. Consulted hospice. Subjective: Patient seen and examined at bedside. DIscussed this case with pulmonology and reviewed images with them. Unlikely to have invasive aspergillus infection, but may potentially help to place on anti-fungals, despite not being likely to imp rove overall picture. Data Reviewed Today: Pertinent Labs: WBC 12.4, hemoglobin 8.9, platelet 107, sodium 133, creatinine 0.8, blood sugars range between 2 27-2 62, magnesium 1.9 Imaging: No new imaging Assessment and Plan: Acute on chronic hypoxic respiratory failure, likely from COVID sequelae complicated by development of pseudomonas and stenotropomonas maltophilia pneumonia Sepsis upon admission, secondary to above Acute on chronic COPD exacerbation, secondary to above Generalized weakness and fatigue secondary to physical decomposition resulting from prolonged hospitalization -Had extensive discussion with family and patient with regards to goals of care. Questions were answered. Patient has very poor prognosis. Recommendations made for hospice. Family wants to talk it over before making final decision. -Continue with Symbicort 2 puffs INH BID. DuoNebs scheduled Q4H and as needed for wheezing/shortness of breath. Singulair 10 mg PO HS, and IV steroids with SoluMedrol 60 mg IV Q8H. -Pulmonology note reviewed, continue as above -Continue weaning oxygen -ID also following, patient's status post IV antibiotics Pulmonary nodule, incidental finding on CT. Starting voriconazole for invasive aspergillosis. Recommend outpatient close monitoring/surveillance with repeat CT in 3 months. Hyponatremia. Stable Hyerkalemia. Resolved Elevated troponin. Troponins flat and ACS ruled out. Continue with ASA 81 mg PO QD. Lipitor 40 mg PO QHS. Plavix 75 mg PO QD. Metoprolol 25 mg PO QD. 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 Hemoglobin A1c 7.3. Continue glycemic protocol with NovoLog sliding scale insulin and scheduled NovoLog 8 units 3 times daily with meals, Levemir 10 nightly added Acute kidney injury on CKD stage IIIa. Resolved Lactic acidosis. Resolved Acute blood loss anemia. Stable Chronic conditions: Systolic CHF with EF 40-45%: Appears euvolemic. Hypertension: Continue metoprolol 25 mg daily. Dyslipidemia: Continue Lipitor 40 mg nightly. Non-Hodgkins lymphoma. Continue to follow-up outpatient with heddler. CAD with CABG: Continue daily cardiac medication regimen with aspirin 81 mg daily, Lipitor 40 mg nightly, Plavix 75 mg daily, and metoprolol 25 mg daily. Carotid stenosis with endarterectomy: Continue daily medication regimen with aspirin 81 mg daily, Lipitor 40 mg nightly, and Plavix 75 mg daily. DVT ppx: SCDs Code status: DNI Anticipated discharge place: Pending clinical course Anticipated discharge time: Pending clinical course Objective - Vital Signs Vital signs: Vital Signs Temp 98.2 F 07/10/24 07:53 Pulse 103 H 07/10/24 12:40 Resp 24 07/10/24 12:40 BP 136/73 07/10/24 12:40 Pulse Ox 95 07/10/24 12:40 FiO2 76 07/10/24 12:40 Intake & Output 07/09/24 07/10/24 07/10/24 18:59 06:59 18:59 Intake Total 656 0 190 Output Total 500 700 600 Balance 156 -700 -410 Weight 58.5 kg Intake: IV 10 Invasive Line 8 10 Oral 656 0 180 Output: Urine 500 700 600 Other: Voiding Method Indwelling Catheter Indwelling Catheter Indwelling Catheter # Bowel Movements 1 - Labs CBC & Chem 7: 07/10/24 08:45 07/10/24 08:45 Labs: Abnormal Lab Results - Last 24 Hours (Table) 07/09/24 07/09/24 07/10/24 Range/Units 16:36 20:44 02:06 WBC (3.8-10.6) k/uL RBC (4.30-5.90) m/uL Hgb (13.0-17.5) gm/dL Hct (39.0-53.0) % Plt Count (150-450) k/uL Neutrophils # (1.3-7.7) k/uL Lymphocytes # (1.0-4.8) k/uL Sodium (137-145) mmol/L BUN (9-20) mg/dL Glucose (74-99) mg/dL POC Glucose (mg/dL) 242 H 204 H 237 H (70-110) mg/dL Alkaline Phosphatase (38-126) U/L Total Protein (6.3-8.2) g/dL Albumin (3.5-5.0) g/dL 07/10/24 07/10/24 07/10/24 Range/Units 05:35 08:45 08:45 WBC 10.7 H (3.8-10.6) k/uL RBC 3.18 L (4.30-5.90) m/uL Hgb 9.8 L (13.0-17.5) gm/dL Hct 29.6 L (39.0-53.0) % Plt Count 110 L (150-450) k/uL Neutrophils # 9.4 H (1.3-7.7) k/uL Lymphocytes # 0.7 L (1.0-4.8) k/uL Sodium 134 L (137-145) mmol/L BUN 45 H (9-20) mg/dL Glucose 142 H (74-99) mg/dL POC Glucose (mg/dL) 204 H (70-110) mg/dL Alkaline Phosphatase 146 H (38-126) U/L Total Protein 4.9 L (6.3-8.2) g/dL Albumin 2.7 L (3.5-5.0) g/dL 07/10/24 Range/Units 12:43 WBC (3.8-10.6) k/uL RBC (4.30-5.90) m/uL Hgb (13.0-17.5) gm/dL Hct (39.0-53.0) % Plt Count (150-450) k/uL Neutrophils # (1.3-7.7) k/uL Lymphocytes # (1.0-4.8) k/uL Sodium (137-145) mmol/L BUN (9-20) mg/dL Glucose (74-99) mg/dL POC Glucose (mg/dL) 247 H (70-110) mg/dL Alkaline Phosphatase (38-126) U/L Total Protein (6.3-8.2) g/dL Albumin (3.5-5.0) g/dL
[2024-07-10 16:49] LABS: Glucose,Whole Blood 190 mg/dL (70-110)
[2024-07-10 20:04] LABS: Glucose,Whole Blood 222 mg/dL (70-110)
[2024-07-11 06:25] LABS: Glucose,Whole Blood 196 mg/dL (70-110)
[2024-07-11 11:40] LABS: Glucose,Whole Blood 132 mg/dL (70-110)
--- NOTE | 2024-07-11 12:37 | P.PN ---
Subjective Progress Note Date: 07/11/24 Principal diagnosis: COPD exacerbation. This is a very pleasant 79-year-old male patient who has a history of chronic and ongoing tobacco dependence, severe COPD maintained on a combination of Wixela and Spiriva on an outpatient basis. His previous pulmonary function test from 2020 has shown as an FEV1 of 39% of predicted at baseline. He is also oxygen dependent and utilizes oxygen on and off as requirement of oxygen becomes more needed whenever he gets an acute exacerbation. He has class III/IV chronic exertional dyspnea. He is also being monitored for a right upper lobe pulmonary nodule which is measuring 1.1 cm in size there was noted to be PET avid. Based on his advanced COPD and limited performance status he was recommended continue surveillance of this pulmonary nodule and decide at the later stage if SBRT would be of any benefit for this patient. He is also known to have coronary artery disease, has undergone previous coronary bypass surgery. He has also undergone previous stenting to SVG to RCA. Other comorbidities include hypertension, hyperlipidemia, previous history of non-Hodgkin's lymphoma treated with rituximab and the patient has carotid artery disease, abdominal aortic aneurysm with previous endovascular stent grafting and the patient has a aorto by iliac endovascular graft along with previous history of a upper GI bleed related to a duodenal ulcer which resulted into significant blood loss anemia. He has had frequent readmissions to the hospital. Recently discharged on June 07, 2024. His most recent bronchoscopy was performed on 06/03/2024 and was found to have Stenotrophomonas maltophilia and was treated with Ciprofloxa mindy. He came back to the emergency room yesterday 06/18/2024 with complaints of increasing shortness of breath, cough and congestion. Chest x-ray reveals interstitial opacities bilaterally. No pleural effusion. Mild hyperinflation. White count 6.2. Hemoglobin 12.4. Platelets 204. Sodium 139. Potassium 3.7. Bicarb 33. BUN 39. Creatinine 1.91. Glucose 131. Troponin 0.043. proBNP 571 . Procalcitonin 0.29. He has been initiated on DuoNeb inhalations, Symbicort, prednisone taper. Antibiotics in the form of Zosyn. Lovenox for DVT prophylaxis. He is seen in consultation on the regular medical floor. Currently sitting up in bed. He is dyspneic with conversation. Dyspneic with minimal exertion. Admits to still smoking 2 to 3 cigarettes a day. Currently maintaining O2 saturations in the 90s on 3 L/min per nasal cannula. He has been afebrile. Hemodynamically stable. The patient is seen today June 20, 2024 in follow-up on the regular medical floor. He is currently resting in bed. Awake and alert in no acute distress. He is breathing a bit easier today compared to yesterday. His only complaint is of sinus congestion. He is maintaining good O2 saturations in the 90s on 3 L/min per nasal cannula. No IV fluids. Blood and sputum cultures revealing no growth to date. Glucose 180. He is continued on DuoNeb and elations, Symbicort, Singulair, prednisone taper. Lovenox for DVT prophylaxis. Progress note dated June 21, 2024. This is an 79-year-old male with a history of severe COPD. FEV1 is 39% of predicted. Unfortunately, the patient does continue to smoke cigarettes. He was admitted with a diagnosis of COPD exacerbation. This morning, a rapid response team was called to this patient's bed, in room 476. The patient was very short of breath. He was placed on BiPAP, 12/5 and 40%. Blood gases were ordered. A chest x-ray was ordered. He received some Ativan and Xanax. He is getting lactated Ringer's at 50 cc an hour. The patient is a DO NOT INTUBATE patient. White count 11.6, hemoglobin 12.4, hematocrit 36.3, platelet count normal. Repeat blood gases show pO2 of 52, pCO2 of 35, and a pH of 7.49. At this point, the BiPAP was changed to 16/5. The FiO2 was increased to 50%. Sodium 143, potassium 4.3, chlorides 108, CO2 29, BUN 22, creatinine 1.30. Calcium is 8.8. Sputum and blood sampling has been negative thus far. Chest x- ray shows changes of COPD, without evidence of airspace consolidation. On 06/22/2024, the patient is being seen for a follow-up. This morning, the patient is on a BiPAP pressure of 16 over 5 cm of water with FiO2 of 60% and the patient is on a lactated Ringer at rate of 50 cc an hour. Chest x-ray was done this morning and it showed patchy infiltrates in lung bases more so on the right consistent with pneumonia. Most recent bronchoscopy yielded stenotrophomonas and the patient has grown Pseudomonas in the past. The patient is currently on IV Zosyn. He remains on DuoNeb nebulized treatments [id number]. He is on Symbicort. He is on IV Solu-Medrol. He is awake and alert and communicating. The white cell count is at 7 with hemoglobin of 10 and platelet count of 189. BUN is 27 with a creatinine of 1.36 and a sodium levels at 138. He is weak and quite debilitated on a chronic basis. Bactrim will be also added to his regimen. On 06/23/2024, the patient is still on Airvo at 35 L with an FiO2 of 50% with a pulse ox of 96%. Feels somewhat improved compared to yesterday. Continues to have a congested cough with limited amount of sputum production. Antibiotic modification was done yesterday and the patient is currently on a combination of Zosyn and IV Bactrim. Renal function remained stable. On today's blood work, the creatinine is at 1.24 with a BUN of 23. Rest of the electrolytes are all stable and within normal limits. White cell count of 5.3 with a hemoglobin of 9. A repeat chest x-ray from today shows some bibasilar pulmonary filtrates slightly worse on the left along with background COPD. Remains on bronchodilators. Remains on steroids. Remains on lactated Ringer at 50 cc an hour. Remains on Symbicort and DuoNeb updrafts [id number]. Home medications have been also resumed. 06/24/2024, the patient remains on Airvo 35 L with an FiO2 of 55%. The patient continues to have respiratory difficulties, cough, congestion, unable to bring up much of sputum. No significant improvement in respiratory status over the past 24 hours. The patient remains on a combination of IV Bactrim and IV Zosyn. The white cell count is at 8.1. Hemoglobin is 8.6 and a platelet count of 142. BUN is 25 with a creatinine of 1.22. He is getting progressively more debilitated and weak. Spending most of the time in bed. Oral intake is diminished and the patient had minimal amount of old. Earlier this morning. I plan to do a bronchoscopy on this patient in the afternoon to further optimize her respiratory status. Suspect mucous plugs. 06/25/2024, the patient is post bronchoscopy. The patient remains on Airvo 35 L with an FiO2 of 55%. Continues to struggle with his breathing. Cough and congestion is improved compared to yesterday post bronchoscopy. Repeat bronchoalveolar lavage was done and results are still pending. Most recent spu katt sample is showing Eden, Aspergillus and stenotrophomonas. The patient remains on Bactrim IV. Remains on IV Solu-Medrol. Remains on DuoNeb nebulized treatments [id number]. The white cell count of 7.4 with a hemoglobin 9.5 and a platelet count of 197. Sodium is at 136, BUN 25 with a creatinine of 1.1. ID is on the case. No other new complaints otherwise for now. 06/26/2024, patient is being seen for a follow-up. The patient is sitting up in a chair. Awaiting the results from the bronchoscopy and bronchial lavage. Most recent sputum analysis was positive for stenotrophomonas in addition to Aspergillus and candidal elements. Earlier this morning, the patient was on Airvo. He was at 35 L with an FiO2 of 55%. I took him off the Airvo and I put him on 60 days of oxygen by nasal cannula and his current pulse ox 94%. He remains bronchospastic and wheezy. Awaiting consistent 0.8 edema 9.5 and a platelet count of 199. BUN is 25 with a creatinine of 1.09 and sodium levels at 135. Communicating. Awake. No chest pain. No other new complaints since yesterday. Awaiting results of the bronchial lavage and the patient remains on IV Bactrim. In terms of his renal function, the patient's creatinine is stable at 1.09. 06/27/2024, the patient continues to have labored breathing. After being on nasal cannula for yesterday, this patient became more short of breath this morning. Based on that, the patient was placed again on Airvo and the patient is currently on 50 L with FiO2 of 60%. Pulse ox in the order of 94 to 95%. He remains on IV Bactrim. Continues to encounter cough and congestion. Unable to bring up much of sputum. No chest pain. Looks quite lethargic and weak. His white cell count today is at 10.2 with a hemoglobin 9.9. BUN is 23 with a c reatinine of 1.1. Rest of the medication remains unchanged. Remains on IV Solu-Medrol. Remains on DuoNeb nebulized treatments [id number]. Symbicort will be discontinued and the patient was placed on a combination of Perforomist and Pulmicort. Oral intake remains quite diminished. 06/28/2024, the patient continues to struggle with his breathing. He remains on Airvo and is alternating it with a BiPAP. I am going to switch to BiPAP at a pressure of 10 over 5 cm of water and FiO2 of 50%. Meanwhile, this morning, he remains on Airvo and is currently on 50 L with an FiO2 of 60%. Congested cough. Remains bronchospastic and wheezy. Remains weak and debilitated. Oral intake remains quite diminished. Repeat arthroscopy and lavage yielded no microbial growth and the most recent cultures came back negative. Meanwhile, based on the earlier cultures of stenotrophomonas, the patient remains on Bactrim. Creatinine is stable at 1.2. Responded adequately to Lasix and the patient p roduced approximately 2.8 L of negative fluid balance over the past 24 hours. Potassium is at 4.8. WBC count is at 8.4 with hemoglobin 8.6. Chest x-ray findings are essentially unchanged and the patient has stable lower lobe pulmonary filtrates which are essentially unchanged. Seen today on 06/29/2024, patient is feeling better today, breathing easier. However he remains on Airvo with FiO2 of 60% and flow of 55 L/min. Patient is on antibiotics for his pneumonia and positive multi microbial cultures from his sputum and his BAL. This is being addressed accordingly, however the main organism seems to be Stenotrophomonas maltophilia WBC count is 9.8 hemoglobin is 9 basic metabolic profile is normal BUN is 24 creatinine 1.23. This x-ray from yesterday continues show bilateral extensive infiltrates specially at the bases of his right lung and left lung/lingula Patient was evaluated today on 06/30/2024, patient is basically about the same, continues to have cough, shortness of breath, significant amount of secretions, on 8 L high flow nasal cannula, patient is developing worsening electrolytes imbalance, renal functioning is not changing much creatinine 1.19, however his potassium is 5.8 sodium is 129 WBC 16.1. Chest x-ray continues to show significant airspace disease involving the left lower lobe and lingula as well as the right lower lobe, infectious disease is concerned about Bactrim with hyperkalemia, and recommending IV Levaquin instead. Patient was seen today on 07/01/2024, patient feels worse today, he is on Airvo at 70% FiO2 and 55 L flow, continues to have intermittent cough wheezing shortness of breath, cough is productive. His antibiotics were changed yes terday from Bactrim to Levaquin, being followed by infectious disease. 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 Basic metabolic profile is better potassium is down to 5.1 BUN is 28 creatinine 1.25. Family is at bedside, and I discussed his pulmonary status with the family Reevaluate today on 07/02/2024, patient is feeling a bit better today compared to yesterday. Breathing easier, CT of the chest was reviewed patient has significant COPD/emphysema and bilateral airspace disease patient remains on Levaquin, bronchodilators, and steroids, patient is also receiving multiple bronchodilators, some improvement but not back to baseline. Still requiring Airvo with high flow and high FiO2. WBC count today is 13.6 hemoglobin 9.8 basic metabolic profile is normal BUN is 30 creatinine 1.38 Patient was seen today on 07/03/2024, continues to steadily improve, however he remains on Airvo, 40 L flow and 60% FiO2 O2 saturation 96%. Less cough less wheezing less shortness of breath, he seems more comfortable today than he felt in the last few days. WBC count is 12.6 hemoglobin 8.9 basic metabolic profile is normal BUN is 27 creatinine 1.27, better today compared to yesterday. Patient remains on Levaquin Reevaluate today on 07/04/2024, patient continues to feel better today, however he is on relatively higher FiO2 and higher flow via Airvo. He is up to 65% and his flow is 50 L. Patient is comfortable, continues to have intermittent cough wheezing, cough is productive with yellow phlegm. No fever no chills no hemoptysis, remains on Levaquin. Patient was evaluated today on 07/05/2024, remains on Airvo, patient is doing well today, less cough less wheezing less shortness of breath remains on Levaquin. WBC count is 13.4 hemoglobin 9.3 basic metabolic profile is normal BUN is 32 creatinine 1.05 Progress note dated July 06, 2024. 79-year-old male who is now been in the hospital for 18 days. He was admitted with a diagnosis of acute on chronic respiratory failure. Currently, the patient is on Airvo, at 50 L/min with an FiO2 of 60%. He is not receiving any IV fluids. I last saw him on June 21, 2 weeks ago. Current labs include a white count of 16.6, hemoglobin 9.9, hematocrit 29.8, and a platelet count of 145,000. Sodium 133, potassium 4.8, chlorides 99, CO2 27, BUN 36, creatinine 0.95. Albumin is 2.8. Glucose is 197. Chest x-ray shows multifocal airspace opacities, previously unchanged from the x-ray on June 30. Progress note dated July 07, 2024. 79-year-old male seen in room 363. He has not been in the hospital for 19 days. The patient continues on Airvo, with settings of 60 L/min, and an FiO2 of 94%. He is not receiving any IV fluids. The patient is receiving albuterol sulfate and ipratropium breathing treatments, Solu-Medrol, budesonide, formoterol, and also Levaquin. The patient complains of difficulty breathing. He is currently laying flat in bed. White count 13.4, hemoglobin 9.3, hematocrit 27.5, platelet count of 119,000. Sodium 134, potassium 4.3, chloride 99, CO2 32, BUN 41, creatinine 1. Albumin is 2.6. Chest x-ray from July 06, shows multifocal airspace opacities, which are unchanged. Progress note dated July 08, 2024. 79-year-old male with a history of severe/end-stage COPD. The patient is seen today in room 363. The patient has not been in the hospital for 20 days. The patient continues on Airvo, at 50 L/min with an FiO2 of 85%. Patient really has not made any headway. Antibiotic in my opinion can be discontinued. I think a hospice consult or palliative care consult would be very appropriate. White count is 14.6, hemoglobin 10.1, hematocrit 30.2, and platelet count 127,000. Sodium 135, potassium 4.5, chlorides 99, CO2 29, BUN 41, and creatinine 0.83. Albumin is 2.8. Glucose is 229. Sputum samples from June 22 showed Aspergillus fumigatus, Eden albicans, and Stenotrophomonas maltophilia. Progress note dated July 09, 2024. 79-year-old male seen in room 363. The patient was admitted with a diagnosis of severe end-stage COPD. The patient has been on Airvo for a number of days. Current settings include 60 L/min with an FiO2 of 83%. The patient is not receiving any IV fluids. The patient continues to be significantly short of breath. Current labs include a white count 12.4, hemoglobin 8.9, hematocrit 26.6, and a platelet count of 107,000. Sodium 133, potassium 4.7, chlorides 100, CO2 29, BUN 41, creatinine 0.8. Calcium is 8.1. Albumin 2.5. The patient had a chest x-ray, dated July 08, 2024. It was compared to an x-ray that was done 2 days prior. It essentially shows no changes, with bibasilar and bilateral patchy opacities. Progress note dated July 10, 2024. 79-year-old male with a history of severe COPD. The patient is again seen today in room 363. The patient remains on Airvo. Throughout this whole week, the patient has been Airvo dependent. His current settings include 60 L/min with an FiO2 77%. The patient is very short of breath with any activity. White count 10.7, hemoglobin 9.8, hematocrit 29.6, platelet count of 110,000. Sodium 134, potassium 4.6, chlorides 101, CO2 30, BUN 45, and creatinine 0.85. Glucose 142. Calcium 8.5. Progress note dated July 11, 2024. 79-year-old male with history of severe COPD. The patient is seen today in room 363. He continues on Airvo. He has been Airvo dependent, this whole week. He is currently on 60 L/min with an FiO2 of 80%. He is not receiving any IV fluids. Yesterday, his primary service, added voriconazole, 200 mg, every 12, IV. Current labs include a glucose of 132. No additional laboratory data are noted. Objective - Vital Signs Vital signs: Vital Signs Temp 97.8 F 07/11/24 11:40 Pulse 89 07/11/24 11:40 Resp 24 07/11/24 11:40 BP 143/72 07/11/24 11:40 Pulse Ox 90 L 07/11/24 11:40 FiO2 76 07/11/24 11:40 Intake & Output 07/10/24 07/11/24 07/11/24 18:59 06:59 18:59 Intake Total 190 10 Output Total 925 575 Balance -735 -575 10 Intake: IV 10 10 Invasive Line 8 10 10 Oral 180 Output: Urine 925 575 Other: Voiding Method Indwelling Catheter Indwelling Catheter Indwelling Catheter # Bowel Movements 1 1 - Exam Patient is very short of breath, with conversational dyspnea, and use of accessory muscles, currently on AIRVO. HEENT examination is grossly unremarkable. Mucous membranes are moist. No oral lesions. Neck supple. Full range of motion. No adenopathy thyromegaly or neck vein distention. Cardiovascular examination reveals regular rhythm rate. S1-S2 normal. No S3 or S4. No discernible murmur noted. Heart sounds are distant. Lungs reveal scattered bilateral rhonchi and expiratory wheezes. No crackles. Breath sounds equal but diminished throughout. Abdomen soft and without bowel sounds. No masses or tenderness. Extremities are intact. No cyanosis clubbing or edema. Skin is without rash or lesion. Neurologic examination is brief but nonfocal. - Labs CBC & Chem 7: 07/10/24 08:45 07/10/24 08:45 Labs: Abnormal Lab Results - Last 24 Hours (Table) 07/10/24 07/10/24 07/10/24 Range/Units 12:43 16:46 20:02 POC Glucose (mg/dL) 247 H 190 H 222 H (70-110) mg/dL 07/11/24 07/11/24 Range/Units 06:23 11:39 POC Glucose (mg/dL) 196 H 132 H (70-110) mg/dL Assessment and Plan Assessment: Acute on chronic hypoxic respiratory failure secondary to an acute exacerbation of COPD. Frequent admissions for COPD exacerbation. Recent discharge on 06/07/2024. Recent bronchoscopy of 06/03/2024 revealed Stenotrophomonas maltophilia. Chronic and ongoing tobacco dependence Oxygen dependent chronic obstructive pulmonary disease with an FEV1 value 39% of predicted. Chronic tobacco dependence of greater than 60 years. Right upper lobe PET avid pulmonary nodule which is being monitored on outpatient basis. History of non-Hodgkin's lymphoma. Chronic stage III kidney disease. Coronary disease with previous coronary artery bypass surgery in 2001. History of abdominal aortic aneurysm status post stent placement in March 2022. Carotid stenosis S/P endarterectomy. History of ESBL E. coli in 2021. Hyperlipidemia. Hypertension. Plan: Plan dated June 21, 2024. The patient is transferred to the intensive care unit, as a 3 S. overflow. He is placed on BiPAP, with settings of 16/5, and 50%. Blood gases have been ordered as well as a chest x-ray. The patient received some Ativan for sedation and anxiety control. He is getting lactated Ringer's at 50 cc an hour. I confirmed with the nurses that the patient is a DO NOT INTUBATE patient. Labs, x-rays, and all medications are reviewed. The patient's overall prognosis remains poor. He has severe COPD with an FEV1 that is only 39% of predicted. Plan dated July 06, 2024. I saw the patient last 2 weeks ago. The patient was on BiPAP at that time. Currently he is on Airvo, at 50 L/min, with an FiO2 60%. He is not receiving any IV fluids. Labs, x-rays, and all medications are reviewed. The patient's overall prognosis remains very guarded. Patient continues on Levaquin, as per infectious diseases. The rest of his medications are appropriate. The patient is a DO NOT INTUBATE patient. We will continue to follow make recommendations along the way. Plan dated July 07, 2024. The patient is seen in room 363. He continues on Airvo, with settings of 60 L/min with an FiO2 of 94%. The patient continues on all appropriate medications including updrafts with albuterol sulfate and ipratropium bromide, updrafts with budesonide, and formoterol, Levaquin, and Solu-Medrol. Labs, x-rays, and medications are reviewed. We will continue to follow. The patient is not to be intubated. Prognosis is poor. Plan dated July 08, 2024. The patient is seen today in room 363. This is an 79-year-old male with history of severe end-stage COPD. The patient is currently on Airvo, at 50 L/min, with an FiO2 of 85%. He is not receiving any IV fluids. The patient really has not made any progress. The patient is still very short of breath. The patient has been in the hospital for 20 days. I think it is very appropriate to consider hospice consultation, or palliative care consultation. Will leave that up to the primary service, but that is our recommendation. We will continue to follow the patient. Labs, x-rays, and all medications are reviewed. Prognosis is very poor. Plan dated July 09, 2024. The patient is seen today in room 363. No additional recommendations are made at this time. The patient continues on Airvo. He is receiving maximal medical therapy. We are hoping that he turns a corner. We have talking to the family about CODE STATUS, and palliative/hospice care. The patient remains a full code with instructions as noted above. We will continue to follow. The patient does not want to be intubated. Labs, x-rays, medications are reviewed. Prognosis is poor. Plan dated July 10, 2024. The patient is seen today in room 363. The patient continues on Airvo. Settings include at 60 L/min, with an FiO2 of 77%. The patient really has not made any great progress. The patient is a no code patient does not wish to be intubated. Labs, x-rays, medications are reviewed. The patient is on appropriate medications clued bronchodilators and corticosteroids. We will continue to follow the patient, and make recommendations where appropriate. The patient's overall prognosis remains very poor. Plan dated July 11, 2024. The patient is seen today in room 363. Family members are in the room. The patient remains on Airvo, with settings of 60 L/min, and FiO2 of 80%. Yesterday, the primary service added voriconazole, 200 mg IV, every 12 hours. Labs, x-rays, and all medications are reviewed. The patient's overall prognosis remains very guarded. The patient is adamant about continuing on the Airvo. We have talked him about palliative care, and hospice. He is not interested in those things at this time. We will continue to follow-up provide the best treatment possible for this patient, who has a very poor prognosis. Time with Patient: Less than 30
--- NOTE | 2024-07-11 14:08 | P.PN ---
Subjective Progress Note Date: 07/11/24 Hospital Course: Patient is a very pleasant 79-year-old male with a past medical history of systolic CHF with EF 40 to 45%, COPD on 3L home O2, chronic kidney disease, hypertension, hyperlipidemia, non-Hodgkins lymphoma, CAD with CABG, AAA with stent, carotid stenosis with endarterectomy presents to the ED for shortness of breath. Apparently his O2 sat was in the 70s when EMS arrived on his 3L NC. Rec ently admitted from 06/05-06/07 for similar complaints, COVID + at that time, treated with bronchodilators, Zosyn, SoluMedrol and discharged on a Prednisone taper and to complete a course of Ciprofloxacin. He recently underwent bronchoscopy with BAL with Dr. Cano on 05/13 with cultures resulting in Pseudomonas and eden albicans. He was started on Ciprofloxacin at that time. He underwent repeat bronchoscopy with BAL with Dr. Cano on 06/03 which grew stenotrophomonas maltophilia. He was continued on Ciprofloxacin and according to the patient has been taking it over the past 5-6 weeks. In the ED he underwent extensive evaluation. Tmax 100F, BP 119/62, HR 102, RR 40, 91% on 3L. CBC, Coag panel, CMP significant for RBC 4, Hg 12.4, Hct 35.8, PT 9.9, bicarb 33, BUN 39, Cr 1.91, glu 131. Lactic acid 2.9. Troponin 0.054. EKG sinus tachycardia with RBBB. CXR showed COPD with patchy interstitial densities increased from previous CXRs. Patient is admitted for further workup and management. Patient seen by pulmonology and started on IV Zosyn and Bactrim. Patient also on IV steroids. Patient was on BiPAP. Patient weaned down to Airvo. Patient had another bronchoscopy done on 06/24/2024 that showed tracheobronchomalacia with copious thick secretions and mucous plugging. Sputum culture obtained at this time showing Aspergillus fumigatus, stenotrophomonas maltophilia, and Eden albicans. Patient currently on Bactrim 352 mg IVPB every [address] chest was completed showing small right pleural effusion and moderate to severe emphysema with right lower lobe 13 mm pulmonary nodule. Patient is now status post antibiotics. Continues to have poor respiratory function requiring Airvo [id number]. Consulted hospice. Subjective: Patient seen and examined at bedside. Family is progressing toward hospice, but would like to wait until saturday to finalize decision. Ongoing sputum production. Data Reviewed Today: Pertinent Labs: WBC 12.4, hemoglobin 8.9, platelet 107, sodium 133, creatinine 0.8, blood sugars range between 2 27-2 62, magnesium 1.9 Imaging: No new imaging Assessment and Plan: Acute on chronic hypoxic respiratory failure, likely from COVID sequelae complicated by development of pseudomonas and stenotropomonas maltophilia pneumonia Sepsis upon admission, secondary to above Acute on chronic COPD exacerbation, secondary to above Generalized weakness and fatigue secondary to physical decomposition resulting from prolonged hospitalization -Had extensive discussion with family and patient with regards to goals of care. Questions were answered. Patient has very poor prognosis. Recommendations made for hospice. Family wants to talk it over before making final decision. -Continue with Symbicort 2 puffs INH BID. DuoNebs scheduled Q4H and as needed for wheezing/shortness of breath. Singulair 10 mg PO HS, and IV steroids with SoluMedrol 60 mg IV Q8H. -Pulmonology note reviewed, continue as above -Continue weaning oxygen -ID also following, patient's status post IV antibiotics Pulmonary nodule, incidental finding on CT. Starting voriconazole for possible aspergilloma (note: correction from previous note - patient is not likely to have invasive aspergillosis given negative Aspergillus Abs). Recommend outpat ient close monitoring/surveillance with repeat CT in 3 months. Hyponatremia. Stable Hyerkalemia. Resolved Elevated troponin. Troponins flat and ACS ruled out. Continue with ASA 81 mg PO QD. Lipitor 40 mg PO QHS. Plavix 75 mg PO QD. Metoprolol 25 mg PO QD. 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 Hemoglobin A1c 7.3. Continue glycemic protocol with NovoLog sliding scale insulin and scheduled NovoLog 8 units 3 times daily with meals, Levemir 10 nightly added Acute kidney injury on CKD stage IIIa. Resolved Lactic acidosis. Resolved Acute blood loss anemia. Stable Chronic conditions: Systolic CHF with EF 40-45%: Appears euvolemic. Hypertension: Continue metoprolol 25 mg daily. Dyslipidemia: Continue Lipitor 40 mg nightly. Non-Hodgkins lymphoma. Continue to follow-up outpatient with realtime captioner. CAD with CABG: Continue daily cardiac medication regimen with aspirin 81 mg daily, Lipitor 40 mg nightly, Plavix 75 mg daily, and metoprolol 25 mg daily. Carotid stenosis with endarterectomy: Continue daily medication regimen with aspirin 81 mg daily, Lipitor 40 mg nightly, and Plavix 75 mg daily. DVT ppx: SCDs Code status: DNR/DNI Anticipated discharge place: Pending clinical course Anticipated discharge time: Pending clinical course Objective - Vital Signs Vital signs: Vital Signs Temp 97.8 F 07/11/24 11:40 Pulse 91 07/11/24 13:09 Resp 24 07/11/24 11:40 BP 143/72 07/11/24 11:40 Pulse Ox 91 L 07/11/24 13:02 FiO2 80 07/11/24 13:02 Intake & Output 07/10/24 07/11/24 07/11/24 18:59 06:59 18:59 Intake Total 190 10 Output Total 925 575 Balance -735 -575 10 Intake: IV 10 10 Invasive Line 8 10 10 Oral 180 Output: Urine 925 575 Other: Voiding Method Indwelling Catheter Indwelling Catheter Indwelling Catheter # Bowel Movements 1 1 - Labs CBC & Chem 7: 07/10/24 08:45 07/10/24 08:45 Labs: Abnormal Lab Results - Last 24 Hours (Table) 07/10/24 07/10/24 07/11/24 Range/Units 16:46 20:02 06:23 POC Glucose (mg/dL) 190 H 222 H 196 H (70-110) mg/dL 07/11/24 Range/Units 11:39 POC Glucose (mg/dL) 132 H (70-110) mg/dL
--- NOTE | 2024-07-11 14:27 | P.PN ---
Subjective Progress Note Date: 07/11/24 Principal diagnosis: Reason for follow-up is pneumonia Patient is a 79-year-old male with a past medical history significant for non-Hodgkin lymphoma COPD hypertension hyperlipidemia heart failure recently diagnosed with a COVID-19 presented to hospital for evaluation of increasing shortness of breath and cough sputum production did have patient evaluated on the chest x-ray concerning for pneumonia. On today's evaluation that is 07/11/2024, Patient is afebrile patient is currently on high flow nasal cannula oxygen FiO2 at 80% still complaining of shortness of breath he also have a cough and is bringing up some sputum no hemoptysis no chest pain abdominal pain or diarrhea. No new lab has been obtained today Objective - Vital Signs Vital signs: Vital Signs Temp 97.8 F 07/11/24 11:40 Pulse 91 07/11/24 13:09 Resp 24 07/11/24 11:40 BP 143/72 07/11/24 11:40 Pulse Ox 91 L 07/11/24 13:02 FiO2 80 07/11/24 13:02 Intake & Output 07/10/24 07/11/24 07/11/24 18:59 06:59 18:59 Intake Total 190 10 Output Total 925 575 Balance -735 -575 10 Intake: IV 10 10 Invasive Line 8 10 10 Oral 180 Output: Urine 925 575 Other: Voiding Method Indwelling Catheter Indwelling Catheter Indwelling Catheter # Bowel Movements 1 1 - Exam GENERAL DESCRIPTION: An elderly male up in bed in no distress RESPIRATORY SYSTEM: Unlabored breathing , coarse breath sounds bilaterally HEART: S1 S2 regular rate and rhythm , ABDOMEN: Soft , no tenderness EXTREMITIES: No edema feet - Labs CBC & Chem 7: 07/10/24 08:45 07/10/24 08:45 Labs: Abnormal Lab Results - Last 24 Hours (Table) 07/10/24 07/10/24 07/11/24 Range/Units 16:46 20:02 06:23 POC Glucose (mg/dL) 190 H 222 H 196 H (70-110) mg/dL 07/11/24 Range/Units 11:39 POC Glucose (mg/dL) 132 H (70-110) mg/dL Assessment and Plan (1) Pneumonia Current Visit: Yes Status: Acute Code(s): J18.9 - PNEUMONIA, UNSPECIFIED ORGANISM SNOMED Code(s): 519836750 (2) Sepsis Current Visit: No Status: Acute Code(s): A41.9 - SEPSIS, UNSPECIFIED ORGANISM SNOMED Code(s): 46560870 Plan: 1patient presented to hospital with sepsis in this patient who did have fever tachycardia mild hypotension source is likely pneumonia in this patient who recently did have a COVID-19 will need to cover for resistant gram negative to be the likely etiology and the patient recently grew Pseudomonas in his BAL culture 2-blood cultures are so far negative initial sputum has been negative, urine for Legionella antigen was negative mycoplasma IgM not elevated, repeat sputum is growing stenotrophomonas as well as Aspergillus and Eden 3 Aspergillus CF antibodies came back negative, and Aspergillus galactomannan requested but no results 4patient has been afebrile white count has normalized and received adequate IV Bactrim followed by Levaquin which was subsequently discontinued 5patient has been started on voriconazole by admitting team as of 07/10/2024 and will see response Dictation was produced using [employer] dictation software. please excuse any grammatical, word or spelling errors. Time with Patient: Less than 30
[2024-07-11 16:39] LABS: Glucose,Whole Blood 199 mg/dL (70-110)
[2024-07-11] MEDS: VORICONAZOLE 200 MG in SODIUM CHLORIDE 0.9% 100 ML IVPB SCH (17:43)
[2024-07-11] MEDS: PSEUDOEPHEDRINE 30 MG TAB PO PRN (18:16)
[2024-07-11 19:56] LABS: Glucose,Whole Blood 236 mg/dL (70-110)
[2024-07-12 06:13] LABS: Glucose,Whole Blood 136 mg/dL (70-110)
[2024-07-12 07:19] LABS: Anisocytosis Slight; Basophils % (A) 0 %; Eosinophils % (A) 0 %; HCT 26.3 % (39.0-53.0); HGB 8.9 gm/dL (13.0-17.5); Lymphocytes # (A) 0.4 k/uL (1.0-4.8); Lymphocytes % (A) 6 %; MCH 30.6 pg (25.0-35.0); MCHC 33.7 g/dL (31.0-37.0); MCV 90.8 fL (80.0-100.0); Mean Platelet Volume 10.1; Monocytes # (A) 0.3 k/uL (0-1.0); Monocytes % (A) 5 %; Neutrophils # (A) 4.8 k/uL (1.3-7.7); Neutrophils % (A) 86 %; Platelet Count 111 k/uL (150-450); RDW 16.2 % (11.5-15.5); WBC 5.5 k/uL (3.8-10.6)
[2024-07-12 07:41] LABS: ALT 26 U/L (4-49); AST 29 U/L (17-59); African American GFR (CKD) >90 (>60 ml/min/1.73 sqM); Albumin 2.3 g/dL (3.5-5.0); Alkaline Phosphatase 112 U/L (38-126); Anion Gap 2 mmol/L; Bilirubin, Delta 0.1 mg/dL (0.0-0.2); Bilirubin,Unconjugated 0.3 mg/dL (0.0-1.1); Blood Urea Nitrogen 36 mg/dL (9-20); Calcium 8.1 mg/dL (8.4-10.2); Carbon Dioxide 30 mmol/L (22-30); Chloride 103 mmol/L (98-107); Glucose 123 mg/dL (74-99); Magnesium 1.8 mg/dL (1.6-2.3); Non-African American GFR(CKD) >90 (>60 ml/min/1.73 sqM); Potassium 4.2 mmol/L (3.5-5.1); Sodium 135 mmol/L (137-145); Total Bilirubin 0.4 mg/dL (0.2-1.3); Total Protein 4.5 g/dL (6.3-8.2)
[2024-07-12 11:06] LABS: Glucose,Whole Blood 134 mg/dL (70-110)
--- NOTE | 2024-07-12 11:53 | P.PN ---
Subjective Progress Note Date: 07/12/24 Subjective: Patient seen and examined at bedside. Family is progressing toward hospice, but would like to wait until saturday to finalize decision. Pt was noted to have grossly bloody urine yesterday, therefore voriconazole was held. Urine appeared to clear up after this. Based on this, we will discontinue voriconazole at this time. Gen: In moderate distress from dyspnea, nontoxic HEENT: normocephalic, atraumatic, hearing acuity is intant, mucous membranes moist CVS: perfusing all extremities well, no pitting edema, Respiratory: symmetric chest expansion, GI: soft, NTTP, ND, : no suprapubic tenderness, no CVA tenderness MSK/Derm: no rashes, cyanosis Neuro: CN II-XII intact, no motor weakness, Psych: cooperative, euthymic mood, judgment and insight is intact Hospital Course: Patient is a very pleasant 79-year-old male with a past medical history of systolic CHF with EF 40 to 45%, COPD on 3L home O2, chronic kidney disease, hypertension, hyperlipidemia, non-Hodgkins lymphoma, CAD with CABG, AAA with stent, carotid stenosis with endarterectomy presents to the ED for shortness of breath. Apparently his O2 sat was in the 70s when EMS arrived on his 3L NC. Recently admitted from 06/05-06/07 for similar complaints, COVID + at that time, treated with bronchodilators, Zosyn, SoluMedrol and discharged on a Prednisone taper and to complete a course of Ciprofloxacin. He recently underwent bronchoscopy with BAL with Dr. Cano on 05/13 with cultures resulting in Pseudomonas and eden albicans. He was started on Ciprofloxacin at that time. He underwent repeat bronchoscopy with BAL with Dr. Cano on 06/03 which grew stenotrophomonas maltophilia. He was continued on Ciprofloxacin and according to the patient has been taking it over the past 5-6 weeks. In the ED he underwent extensive evaluation. Tmax 100F, BP 119/62, HR 102, RR 40, 91% on 3L. CBC, Coag panel, CMP significant for RBC 4, Hg 12.4, Hct 35.8, PT 9.9, bicarb 33, BUN 39, Cr 1.91, glu 131. Lactic acid 2.9. Troponin 0.054. EKG sinus tachycardia with RBBB. CXR showed COPD with patchy interstitial densities increased from previous CXRs. Patient is admitted for further workup and management. Patient seen by pulmonology and started on IV Zosyn and Bactrim. Patient also on IV steroids. Patient was on BiPAP. Patient weaned down to Airvo. Patient had another bronchoscopy done on 06/24/2024 that showed tracheobronchomalacia with copious thick secretions and mucous plugging. Sputum culture obtained at this time showing Aspergillus fumigatus, stenotrophomonas maltophilia, and Eden albicans. Patient currently on Bactrim 352 mg IVPB every [address] chest was completed showing small right pleural effusion and moderate to severe emphysema with right lower lobe 13 mm pulmonary nodule. Patient is now status post antibiotics. Continues to have poor respiratory function requiring Airvo [id number]. Consulted hospice. Assessment and Plan: Acute on chronic hypoxic respiratory failure, likely from COVID sequelae complicated by development of pseudomonas and stenotropomonas maltophilia pn eumonia Sepsis upon admission, secondary to above Acute on chronic COPD exacerbation, secondary to above Generalized weakness and fatigue secondary to physical decomposition resulting from prolonged hospitalization -Had extensive discussion with family and patient with regards to goals of care. Questions were answered. Patient has very poor prognosis. Recommendations made for hospice. -Continue with Symbicort 2 puffs INH BID. DuoNebs scheduled Q4H and as needed for wheezing/shortness of breath. Singulair 10 mg PO HS, and IV steroids with SoluMedrol 60 mg IV Q8H. -Pulmonology note reviewed, continue as above -Continue weaning oxygen -ID also following, patient's status post IV antibiotics Pulmonary nodule, incidental finding on CT. Discontinue voriconazole due to grossly bloody urine - cleared up after holding dose of voriconazole. Recommend outpatient close monitoring/surveillance with repeat CT in 3 months. Hyponatremia. Stable Hyerkalemia. Resolved Elevated troponin. Troponins flat and ACS ruled out. Continue with ASA 81 mg PO QD. Lipitor 40 mg PO QHS. Plavix 75 mg PO QD. Metoprolol 25 mg PO QD. 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 Hemoglobin A1c 7.3. Continue glycemic protocol with NovoLog sliding scale insulin and scheduled NovoLog 8 units 3 times daily with meals, Levemir 10 nightly added Acute kidney injury on CKD stage IIIa. Resolved Lactic acidosis. Resolved Acute blood loss anemia. Stable Chronic conditions: Systolic CHF with EF 40-45%: Appears euvolemic. Hypertension: Continue metoprolol 25 mg daily. Dyslipidemia: Continue Lipitor 40 mg nightly. Non-Hodgkins lymphoma. Continue to follow-up outpatient with senior net engineer. CAD with CABG: Continue daily cardiac medication regimen with aspirin 81 mg daily, Lipitor 40 mg nightly, Plavix 75 mg daily, and metoprolol 25 mg daily. Carotid stenosis with endarterectomy: Continue daily medication regimen with aspirin 81 mg daily, Lipitor 40 mg nightly, and Plavix 75 mg daily. DVT ppx: SCDs Code status: DNR/DNI Anticipated discharge place: Pending clinical course Anticipated discharge time: Pending clinical course Objective - Vital Signs Vital signs: Vital Signs Temp 98.7 F 07/12/24 11:41 Pulse 101 H 07/12/24 11:41 Resp 20 07/12/24 11:41 BP 129/69 07/12/24 11:41 Pulse Ox 84 L 07/12/24 11:41 FiO2 76 07/12/24 11:41 Intake & Output 07/11/24 07/12/24 07/12/24 19:59 06:59 18:59 Intake Total 10 Output Total 200 Balance -190 Intake: IV 10 Invasive Line 8 10 Oral Output: Urine 200 Other: Voiding Method Indwelling Catheter # Bowel Movements - Labs CBC & Chem 7: 07/12/24 06:04 07/12/24 06:04 Labs: Abnormal Lab Results - Last 24 Hours (Table) 07/11/24 07/11/24 07/12/24 Range/Units 16:37 19:54 06:04 RBC 2.90 L (4.30-5.90) m/uL Hgb 8.9 L (13.0-17.5) gm/dL Hct 26.3 L (39.0-53.0) % RDW 16.2 H (11.5-15.5) % Plt Count 111 L (150-450) k/uL Lymphocytes # 0.4 L (1.0-4.8) k/uL Sodium (137-145) mmol/L BUN (9-20) mg/dL Glucose (74-99) mg/dL POC Glucose (mg/dL) 199 H 236 H (70-110) mg/dL Calcium (8.4-10.2) mg/dL Total Protein (6.3-8.2) g/dL Albumin (3.5-5.0) g/dL 07/12/24 07/12/24 07/12/24 Range/Units 06:04 06:11 11:05 RBC (4.30-5.90) m/uL Hgb (13.0-17.5) gm/dL Hct (39.0-53.0) % RDW (11.5-15.5) % Plt Count (150-450) k/uL Lymphocytes # (1.0-4.8) k/uL Sodium 135 L (137-145) mmol/L BUN 36 H (9-20) mg/dL Glucose 123 H (74-99) mg/dL POC Glucose (mg/dL) 136 H 134 H (70-110) mg/dL Calcium 8.1 L (8.4-10.2) mg/dL Total Protein 4.5 L (6.3-8.2) g/dL Albumin 2.3 L (3.5-5.0) g/dL
--- NOTE | 2024-07-12 12:13 | P.PN ---
Subjective Progress Note Date: 07/12/24 Principal diagnosis: COPD exacerbation. This is a very pleasant 79-year-old male patient who has a history of chronic and ongoing tobacco dependence, severe COPD maintained on a combination of Wixela and Spiriva on an outpatient basis. His previous pulmonary function test from 2020 has shown as an FEV1 of 39% of predicted at baseline. He is also oxygen dependent and utilizes oxygen on and off as requirement of oxygen becomes more needed whenever he gets an acute exacerbation. He has class III/IV chronic exertional dyspnea. He is also being monitored for a right upper lobe pulmonary nodule which is measuring 1.1 cm in size there was noted to be PET avid. Based on his advanced COPD and limited performance status he was recommended continue surveillance of this pulmonary nodule and decide at the later stage if SBRT would be of any benefit for this patient. He is also known to have coronary artery disease, has undergone previous coronary bypass surgery. He has also undergone previous stenting to SVG to RCA. Other comorbidities include hypertension, hyperlipidemia, previous history of non-Hodgkin's lymphoma treated with rituximab and the patient has carotid artery disease, abdominal aortic aneurysm with previous endovascular stent grafting and the patient has a aorto by iliac endovascular graft along with previous history of a upper GI bleed related to a duodenal ulcer which resulted into significant blood loss anemia. He has had frequent readmissions to the hospital. Recently discharged on June 07, 2024. His most recent bronchoscopy was performed on 06/03/2024 and was found to have Stenotrophomonas maltophilia and was treated with Ciprofloxa mindy. He came back to the emergency room yesterday 06/18/2024 with complaints of increasing shortness of breath, cough and congestion. Chest x-ray reveals interstitial opacities bilaterally. No pleural effusion. Mild hyperinflation. White count 6.2. Hemoglobin 12.4. Platelets 204. Sodium 139. Potassium 3.7. Bicarb 33. BUN 39. Creatinine 1.91. Glucose 131. Troponin 0.043. proBNP 571 . Procalcitonin 0.29. He has been initiated on DuoNeb inhalations, Symbicort, prednisone taper. Antibiotics in the form of Zosyn. Lovenox for DVT prophylaxis. He is seen in consultation on the regular medical floor. Currently sitting up in bed. He is dyspneic with conversation. Dyspneic with minimal exertion. Admits to still smoking 2 to 3 cigarettes a day. Currently maintaining O2 saturations in the 90s on 3 L/min per nasal cannula. He has been afebrile. Hemodynamically stable. The patient is seen today June 20, 2024 in follow-up on the regular medical floor. He is currently resting in bed. Awake and alert in no acute distress. He is breathing a bit easier today compared to yesterday. His only complaint is of sinus congestion. He is maintaining good O2 saturations in the 90s on 3 L/min per nasal cannula. No IV fluids. Blood and sputum cultures revealing no growth to date. Glucose 180. He is continued on DuoNeb and elations, Symbicort, Singulair, prednisone taper. Lovenox for DVT prophylaxis. Progress note dated June 21, 2024. This is an 79-year-old male with a history of severe COPD. FEV1 is 39% of predicted. Unfortunately, the patient does continue to smoke cigarettes. He was admitted with a diagnosis of COPD exacerbation. This morning, a rapid response team was called to this patient's bed, in room 476. The patient was very short of breath. He was placed on BiPAP, 12/5 and 40%. Blood gases were ordered. A chest x-ray was ordered. He received some Ativan and Xanax. He is getting lactated Ringer's at 50 cc an hour. The patient is a DO NOT INTUBATE patient. White count 11.6, hemoglobin 12.4, hematocrit 36.3, platelet count normal. Repeat blood gases show pO2 of 52, pCO2 of 35, and a pH of 7.49. At this point, the BiPAP was changed to 16/5. The FiO2 was increased to 50%. Sodium 143, potassium 4.3, chlorides 108, CO2 29, BUN 22, creatinine 1.30. Calcium is 8.8. Sputum and blood sampling has been negative thus far. Chest x- ray shows changes of COPD, without evidence of airspace consolidation. On 06/22/2024, the patient is being seen for a follow-up. This morning, the patient is on a BiPAP pressure of 16 over 5 cm of water with FiO2 of 60% and the patient is on a lactated Ringer at rate of 50 cc an hour. Chest x-ray was done this morning and it showed patchy infiltrates in lung bases more so on the right consistent with pneumonia. Most recent bronchoscopy yielded stenotrophomonas and the patient has grown Pseudomonas in the past. The patient is currently on IV Zosyn. He remains on DuoNeb nebulized treatments [id number]. He is on Symbicort. He is on IV Solu-Medrol. He is awake and alert and communicating. The white cell count is at 7 with hemoglobin of 10 and platelet count of 189. BUN is 27 with a creatinine of 1.36 and a sodium levels at 138. He is weak and quite debilitated on a chronic basis. Bactrim will be also added to his regimen. On 06/23/2024, the patient is still on Airvo at 35 L with an FiO2 of 50% with a pulse ox of 96%. Feels somewhat improved compared to yesterday. Continues to have a congested cough with limited amount of sputum production. Antibiotic modification was done yesterday and the patient is currently on a combination of Zosyn and IV Bactrim. Renal function remained stable. On today's blood work, the creatinine is at 1.24 with a BUN of 23. Rest of the electrolytes are all stable and within normal limits. White cell count of 5.3 with a hemoglobin of 9. A repeat chest x-ray from today shows some bibasilar pulmonary filtrates slightly worse on the left along with background COPD. Remains on bronchodilators. Remains on steroids. Remains on lactated Ringer at 50 cc an hour. Remains on Symbicort and DuoNeb updrafts [id number]. Home medications have been also resumed. 06/24/2024, the patient remains on Airvo 35 L with an FiO2 of 55%. The patient continues to have respiratory difficulties, cough, congestion, unable to bring up much of sputum. No significant improvement in respiratory status over the past 24 hours. The patient remains on a combination of IV Bactrim and IV Zosyn. The white cell count is at 8.1. Hemoglobin is 8.6 and a platelet count of 142. BUN is 25 with a creatinine of 1.22. He is getting progressively more debilitated and weak. Spending most of the time in bed. Oral intake is diminished and the patient had minimal amount of old. Earlier this morning. I plan to do a bronchoscopy on this patient in the afternoon to further optimize her respiratory status. Suspect mucous plugs. 06/25/2024, the patient is post bronchoscopy. The patient remains on Airvo 35 L with an FiO2 of 55%. Continues to struggle with his breathing. Cough and congestion is improved compared to yesterday post bronchoscopy. Repeat bronchoalveolar lavage was done and results are still pending. Most recent spu katt sample is showing Eden, Aspergillus and stenotrophomonas. The patient remains on Bactrim IV. Remains on IV Solu-Medrol. Remains on DuoNeb nebulized treatments [id number]. The white cell count of 7.4 with a hemoglobin 9.5 and a platelet count of 197. Sodium is at 136, BUN 25 with a creatinine of 1.1. ID is on the case. No other new complaints otherwise for now. 06/26/2024, patient is being seen for a follow-up. The patient is sitting up in a chair. Awaiting the results from the bronchoscopy and bronchial lavage. Most recent sputum analysis was positive for stenotrophomonas in addition to Aspergillus and candidal elements. Earlier this morning, the patient was on Airvo. He was at 35 L with an FiO2 of 55%. I took him off the Airvo and I put him on 60 days of oxygen by nasal cannula and his current pulse ox 94%. He remains bronchospastic and wheezy. Awaiting consistent 0.8 edema 9.5 and a platelet count of 199. BUN is 25 with a creatinine of 1.09 and sodium levels at 135. Communicating. Awake. No chest pain. No other new complaints since yesterday. Awaiting results of the bronchial lavage and the patient remains on IV Bactrim. In terms of his renal function, the patient's creatinine is stable at 1.09. 06/27/2024, the patient continues to have labored breathing. After being on nasal cannula for yesterday, this patient became more short of breath this morning. Based on that, the patient was placed again on Airvo and the patient is currently on 50 L with FiO2 of 60%. Pulse ox in the order of 94 to 95%. He remains on IV Bactrim. Continues to encounter cough and congestion. Unable to bring up much of sputum. No chest pain. Looks quite lethargic and weak. His white cell count today is at 10.2 with a hemoglobin 9.9. BUN is 23 with a c reatinine of 1.1. Rest of the medication remains unchanged. Remains on IV Solu-Medrol. Remains on DuoNeb nebulized treatments [id number]. Symbicort will be discontinued and the patient was placed on a combination of Perforomist and Pulmicort. Oral intake remains quite diminished. 06/28/2024, the patient continues to struggle with his breathing. He remains on Airvo and is alternating it with a BiPAP. I am going to switch to BiPAP at a pressure of 10 over 5 cm of water and FiO2 of 50%. Meanwhile, this morning, he remains on Airvo and is currently on 50 L with an FiO2 of 60%. Congested cough. Remains bronchospastic and wheezy. Remains weak and debilitated. Oral intake remains quite diminished. Repeat arthroscopy and lavage yielded no microbial growth and the most recent cultures came back negative. Meanwhile, based on the earlier cultures of stenotrophomonas, the patient remains on Bactrim. Creatinine is stable at 1.2. Responded adequately to Lasix and the patient p roduced approximately 2.8 L of negative fluid balance over the past 24 hours. Potassium is at 4.8. WBC count is at 8.4 with hemoglobin 8.6. Chest x-ray findings are essentially unchanged and the patient has stable lower lobe pulmonary filtrates which are essentially unchanged. Seen today on 06/29/2024, patient is feeling better today, breathing easier. However he remains on Airvo with FiO2 of 60% and flow of 55 L/min. Patient is on antibiotics for his pneumonia and positive multi microbial cultures from his sputum and his BAL. This is being addressed accordingly, however the main organism seems to be Stenotrophomonas maltophilia WBC count is 9.8 hemoglobin is 9 basic metabolic profile is normal BUN is 24 creatinine 1.23. This x-ray from yesterday continues show bilateral extensive infiltrates specially at the bases of his right lung and left lung/lingula Patient was evaluated today on 06/30/2024, patient is basically about the same, continues to have cough, shortness of breath, significant amount of secretions, on 8 L high flow nasal cannula, patient is developing worsening electrolytes imbalance, renal functioning is not changing much creatinine 1.19, however his potassium is 5.8 sodium is 129 WBC 16.1. Chest x-ray continues to show significant airspace disease involving the left lower lobe and lingula as well as the right lower lobe, infectious disease is concerned about Bactrim with hyperkalemia, and recommending IV Levaquin instead. Patient was seen today on 07/01/2024, patient feels worse today, he is on Airvo at 70% FiO2 and 55 L flow, continues to have intermittent cough wheezing shortness of breath, cough is productive. His antibiotics were changed yes terday from Bactrim to Levaquin, being followed by infectious disease. 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 Basic metabolic profile is better potassium is down to 5.1 BUN is 28 creatinine 1.25. Family is at bedside, and I discussed his pulmonary status with the family Reevaluate today on 07/02/2024, patient is feeling a bit better today compared to yesterday. Breathing easier, CT of the chest was reviewed patient has significant COPD/emphysema and bilateral airspace disease patient remains on Levaquin, bronchodilators, and steroids, patient is also receiving multiple bronchodilators, some improvement but not back to baseline. Still requiring Airvo with high flow and high FiO2. WBC count today is 13.6 hemoglobin 9.8 basic metabolic profile is normal BUN is 30 creatinine 1.38 Patient was seen today on 07/03/2024, continues to steadily improve, however he remains on Airvo, 40 L flow and 60% FiO2 O2 saturation 96%. Less cough less wheezing less shortness of breath, he seems more comfortable today than he felt in the last few days. WBC count is 12.6 hemoglobin 8.9 basic metabolic profile is normal BUN is 27 creatinine 1.27, better today compared to yesterday. Patient remains on Levaquin Reevaluate today on 07/04/2024, patient continues to feel better today, however he is on relatively higher FiO2 and higher flow via Airvo. He is up to 65% and his flow is 50 L. Patient is comfortable, continues to have intermittent cough wheezing, cough is productive with yellow phlegm. No fever no chills no hemoptysis, remains on Levaquin. Patient was evaluated today on 07/05/2024, remains on Airvo, patient is doing well today, less cough less wheezing less shortness of breath remains on Levaquin. WBC count is 13.4 hemoglobin 9.3 basic metabolic profile is normal BUN is 32 creatinine 1.05 Progress note dated July 06, 2024. 79-year-old male who is now been in the hospital for 18 days. He was admitted with a diagnosis of acute on chronic respiratory failure. Currently, the patient is on Airvo, at 50 L/min with an FiO2 of 60%. He is not receiving any IV fluids. I last saw him on June 21, 2 weeks ago. Current labs include a white count of 16.6, hemoglobin 9.9, hematocrit 29.8, and a platelet count of 145,000. Sodium 133, potassium 4.8, chlorides 99, CO2 27, BUN 36, creatinine 0.95. Albumin is 2.8. Glucose is 197. Chest x-ray shows multifocal airspace opacities, previously unchanged from the x-ray on June 30. Progress note dated July 07, 2024. 79-year-old male seen in room 363. He has not been in the hospital for 19 days. The patient continues on Airvo, with settings of 60 L/min, and an FiO2 of 94%. He is not receiving any IV fluids. The patient is receiving albuterol sulfate and ipratropium breathing treatments, Solu-Medrol, budesonide, formoterol, and also Levaquin. The patient complains of difficulty breathing. He is currently laying flat in bed. White count 13.4, hemoglobin 9.3, hematocrit 27.5, platelet count of 119,000. Sodium 134, potassium 4.3, chloride 99, CO2 32, BUN 41, creatinine 1. Albumin is 2.6. Chest x-ray from July 06, shows multifocal airspace opacities, which are unchanged. Progress note dated July 08, 2024. 79-year-old male with a history of severe/end-stage COPD. The patient is seen today in room 363. The patient has not been in the hospital for 20 days. The patient continues on Airvo, at 50 L/min with an FiO2 of 85%. Patient really has not made any headway. Antibiotic in my opinion can be discontinued. I think a hospice consult or palliative care consult would be very appropriate. White count is 14.6, hemoglobin 10.1, hematocrit 30.2, and platelet count 127,000. Sodium 135, potassium 4.5, chlorides 99, CO2 29, BUN 41, and creatinine 0.83. Albumin is 2.8. Glucose is 229. Sputum samples from June 22 showed Aspergillus fumigatus, Eden albicans, and Stenotrophomonas maltophilia. Progress note dated July 09, 2024. 79-year-old male seen in room 363. The patient was admitted with a diagnosis of severe end-stage COPD. The patient has been on Airvo for a number of days. Current settings include 60 L/min with an FiO2 of 83%. The patient is not receiving any IV fluids. The patient continues to be significantly short of breath. Current labs include a white count 12.4, hemoglobin 8.9, hematocrit 26.6, and a platelet count of 107,000. Sodium 133, potassium 4.7, chlorides 100, CO2 29, BUN 41, creatinine 0.8. Calcium is 8.1. Albumin 2.5. The patient had a chest x-ray, dated July 08, 2024. It was compared to an x-ray that was done 2 days prior. It essentially shows no changes, with bibasilar and bilateral patchy opacities. Progress note dated July 10, 2024. 79-year-old male with a history of severe COPD. The patient is again seen today in room 363. The patient remains on Airvo. Throughout this whole week, the patient has been Airvo dependent. His current settings include 60 L/min with an FiO2 77%. The patient is very short of breath with any activity. White count 10.7, hemoglobin 9.8, hematocrit 29.6, platelet count of 110,000. Sodium 134, potassium 4.6, chlorides 101, CO2 30, BUN 45, and creatinine 0.85. Glucose 142. Calcium 8.5. Progress note dated July 11, 2024. 79-year-old male with history of severe COPD. The patient is seen today in room 363. He continues on Airvo. He has been Airvo dependent, this whole week. He is currently on 60 L/min with an FiO2 of 80%. He is not receiving any IV fluids. Yesterday, his primary service, added voriconazole, 200 mg, every 12, IV. Current labs include a glucose of 132. No additional laboratory data are noted. Progress note dated August 08, 2024. 79-year-old male seen again in room 363. He continues on Airvo, at 60 L/min, with an FiO2 of about 78%. The patient is not receiving any IV fluids. He remains a DO NOT RESUSCITATE patient. The patient denies any changes, whether in a good way or a bad way, when asked. Current laboratory data includes a white count 5.5, hemoglobin 8.9, hematocrit 26.3, and a platelet count of 111,000. Sodium 135, potassium 4.2, chlorides 103, CO2 30, BUN 36, creatinine 0.67. Glucose 134. Calcium 8.1. Albumin 2.3. Objective - Vital Signs Vital signs: Vital Signs Temp 98.7 F 07/12/24 11:41 Pulse 104 H 07/12/24 11:53 Resp 20 07/12/24 11:41 BP 129/69 07/12/24 11:41 Pulse Ox 84 L 07/12/24 11:41 FiO2 76 07/12/24 11:41 Intake & Output 07/11/24 07/12/24 07/12/24 19:59 06:59 18:59 Intake Total 10 Output Total 200 Balance -190 Intake: IV 10 Invasive Line 8 10 Oral Output: Urine 200 Other: Voiding Method Indwelling Catheter # Bowel Movements - Exam Patient is very short of breath, with conversational dyspnea, and use of accessory muscles, currently on AIRVO. HEENT examination is grossly unremarkable. Mucous membranes are moist. No oral lesions. Neck supple. Full range of motion. No adenopathy thyromegaly or neck vein distention. Cardiovascular examination reveals regular rhythm rate. S1-S2 normal. No S3 or S4. No discernible murmur noted. Heart sounds are distant. Lungs reveal scattered bilateral rhonchi and expiratory wheezes. No crackles. Breath sounds equal but diminished throughout. Abdomen soft and without bowel sounds. No masses or tenderness. Extremities are intact. No cyanosis clubbing or edema. Skin is without rash or lesion. Neurologic examination is brief but nonfocal. - Labs CBC & Chem 7: 07/12/24 06:04 07/12/24 06:04 Labs: Abnormal Lab Results - Last 24 Hours (Table) 07/11/24 07/11/24 07/12/24 Range/Units 16:37 19:54 06:04 RBC 2.90 L (4.30-5.90) m/uL Hgb 8.9 L (13.0-17.5) gm/dL Hct 26.3 L (39.0-53.0) % RDW 16.2 H (11.5-15.5) % Plt Count 111 L (150-450) k/uL Lymphocytes # 0.4 L (1.0-4.8) k/uL Sodium (137-145) mmol/L BUN (9-20) mg/dL Glucose (74-99) mg/dL POC Glucose (mg/dL) 199 H 236 H (70-110) mg/dL Calcium (8.4-10.2) mg/dL Total Protein (6.3-8.2) g/dL Albumin (3.5-5.0) g/dL 07/12/24 07/12/24 07/12/24 Range/Units 06:04 06:11 11:05 RBC (4.30-5.90) m/uL Hgb (13.0-17.5) gm/dL Hct (39.0-53.0) % RDW (11.5-15.5) % Plt Count (150-450) k/uL Lymphocytes # (1.0-4.8) k/uL Sodium 135 L (137-145) mmol/L BUN 36 H (9-20) mg/dL Glucose 123 H (74-99) mg/dL POC Glucose (mg/dL) 136 H 134 H (70-110) mg/dL Calcium 8.1 L (8.4-10.2) mg/dL Total Protein 4.5 L (6.3-8.2) g/dL Albumin 2.3 L (3.5-5.0) g/dL Assessment and Plan Assessment: Acute on chronic hypoxic respiratory failure secondary to an acute exacerbation of COPD. Frequent admissions for COPD exacerbation. Recent discharge on 06/07/2024. Recent bronchoscopy of 06/03/2024 revealed Stenotrophomonas maltophilia. Chronic and ongoing tobacco dependence Oxygen dependent chronic obstructive pulmonary disease with an FEV1 value 39% of predicted. Chronic tobacco dependence of greater than 60 years. Right upper lobe PET avid pulmonary nodule which is being monitored on outpatient basis. History of non-Hodgkin's lymphoma. Chronic stage III kidney disease. Coronary disease with previous coronary artery bypass surgery in 2001. History of abdominal aortic aneurysm status post stent placement in March 2022. Carotid stenosis S/P endarterectomy. History of ESBL E. coli in BAL, 2021. Hyperlipidemia. Hypertension. Plan: Plan dated June 21, 2024. The patient is transferred to the intensive care unit, as a 3 S. overflow. He is placed on BiPAP, with settings of 16/5, and 50%. Blood gases have been ordered as well as a chest x-ray. The patient received some Ativan for sedation and anxiety control. He is getting lactated Ringer's at 50 cc an hour. I confirmed with the nurses that the patient is a DO NOT INTUBATE patient. Labs, x-rays, and all medications are reviewed. The patient's overall prognosis remains poor. He has severe COPD with an FEV1 that is only 39% of predicted. Plan dated July 06, 2024. I saw the patient last 2 weeks ago. The patient was on BiPAP at that time. Currently he is on Airvo, at 50 L/min, with an FiO2 60%. He is not receiving any IV fluids. Labs, x-rays, and all medications are reviewed. The patient's overall prognosis remains very guarded. Patient continues on Levaquin, as per infectious diseases. The rest of his medications are appropriate. The patient is a DO NOT INTUBATE patient. We will continue to follow make recommendations along the way. Plan dated July 07, 2024. The patient is seen in room 363. He continues on Airvo, with settings of 60 L/min with an FiO2 of 94%. The patient continues on all appropriate medications including updrafts with albuterol sulfate and ipratropium bromide, updrafts with budesonide, and formoterol, Levaquin, and Solu-Medrol. Labs, x-rays, and medications are reviewed. We will continue to follow. The patient is not to be intubated. Prognosis is poor. Plan dated July 08, 2024. The patient is seen today in room 363. This is an 79-year-old male with history of severe end-stage COPD. The patient is currently on Airvo, at 50 L/min, with an FiO2 of 85%. He is not receiving any IV fluids. The patient really has not made any progress. The patient is still very short of breath. The patient has been in the hospital for 20 days. I think it is very appropriate to consider hospice consultation, or palliative care consultation. Will leave that up to the primary service, but that is our recommendation. We will continue to follow the patient. Labs, x-rays, and all medications are reviewed. Prognosis is very poor. Plan dated July 09, 2024. The patient is seen today in room 363. No additional recommendations are made at this time. The patient continues on Airvo. He is receiving maximal medical therapy. We are hoping that he turns a corner. We have talking to the family about CODE STATUS, and palliative/hospice care. The patient remains a full code with instructions as noted above. We will continue to follow. The patient does not want to be intubated. Labs, x-rays, medications are reviewed. Prognosis is poor. Plan dated July 10, 2024. The patient is seen today in room 363. The patient continues on Airvo. Settings include at 60 L/min, with an FiO2 of 77%. The patient really has not made any great progress. The patient is a no code patient does not wish to be intubated. Labs, x-rays, medications are reviewed. The patient is on appropriate medications clued bronchodilators and corticosteroids. We will continue to follow the patient, and make recommendations where appropriate. The patient's overall prognosis remains very poor. Plan dated July 11, 2024. The patient is seen today in room 363. Family members are in the room. The patient remains on Airvo, with settings of 60 L/min, and FiO2 of 80%. Yesterday, the primary service added voriconazole, 200 mg IV, every 12 hours. Labs, x-rays, and all medications are reviewed. The patient's overall prognosis remains very guarded. The patient is adamant about continuing on the Airvo. We have talked him about palliative care, and hospice. He is not interested in those things at this time. We will continue to follow-up provide the best treatment possible for this patient, who has a very poor prognosis. Plan dated July 12, 2024. The patient is again seen in room 363. He continues on Airvo. Family members are in the room. The patient remains a DO NOT RESUSCITATE patient. We have talked to the patient about palliative care, or hospice, but he is not interested at this time. He is not receiving any IV fluids. He states that he is not feeling any better, or any worse. 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 The primary service did add some voriconazole to the regimen. Labs, x-rays, and medications are reviewed. Patient's overall prognosis remains very guarded. We will continue to follow, and make recommendations. Time with Patient: Less than 30
--- NOTE | 2024-07-12 13:31 | P.PN ---
Subjective Progress Note Date: 07/12/24 Principal diagnosis: Reason for follow-up is pneumonia Patient is a 79-year-old male with a past medical history significant for non-Hodgkin lymphoma COPD hypertension hyperlipidemia heart failure recently diagnosed with a COVID-19 presented to hospital for evaluation of increasing shortness of breath and cough sputum production did have patient evaluated on the chest x-ray concerning for pneumonia. On today's evaluation that is 07/12/2024, patient has been afebrile, patient is breathing about the same still requiring high flow Airvo at 76% FiO2 patient been complaining of cough and bring up sputum no nausea vomiting abdominal pain or diarrhea. Patient white count is 5.5, creatinine 0.67 Objective - Vital Signs Vital signs: Vital Signs Temp 98.7 F 07/12/24 11:41 Pulse 104 H 07/12/24 11:53 Resp 20 07/12/24 11:41 BP 129/69 07/12/24 11:41 Pulse Ox 84 L 07/12/24 11:41 FiO2 76 07/12/24 11:41 Intake & Output 07/11/24 07/12/24 07/12/24 19:59 06:59 18:59 Intake Total 210 Output Total 200 Balance 10 Intake: IV 10 Invasive Line 8 10 Oral 200 Output: Urine 200 Other: Voiding Method Indwelling Catheter # Bowel Movements - Labs CBC & Chem 7: 07/12/24 06:04 07/12/24 06:04 Labs: Abnormal Lab Results - Last 24 Hours (Table) 07/11/24 07/11/24 07/12/24 Range/Units 16:37 19:54 06:04 RBC 2.90 L (4.30-5.90) m/uL Hgb 8.9 L (13.0-17.5) gm/dL Hct 26.3 L (39.0-53.0) % RDW 16.2 H (11.5-15.5) % Plt Count 111 L (150-450) k/uL Lymphocytes # 0.4 L (1.0-4.8) k/uL Sodium (137-145) mmol/L BUN (9-20) mg/dL Glucose (74-99) mg/dL POC Glucose (mg/dL) 199 H 236 H (70-110) mg/dL Calcium (8.4-10.2) mg/dL Total Protein (6.3-8.2) g/dL Albumin (3.5-5.0) g/dL 07/12/24 07/12/24 07/12/24 Range/Units 06:04 06:11 11:05 RBC (4.30-5.90) m/uL Hgb (13.0-17.5) gm/dL Hct (39.0-53.0) % RDW (11.5-15.5) % Plt Count (150-450) k/uL Lymphocytes # (1.0-4.8) k/uL Sodium 135 L (137-145) mmol/L BUN 36 H (9-20) mg/dL Glucose 123 H (74-99) mg/dL POC Glucose (mg/dL) 136 H 134 H (70-110) mg/dL Calcium 8.1 L (8.4-10.2) mg/dL Total Protein 4.5 L (6.3-8.2) g/dL Albumin 2.3 L (3.5-5.0) g/dL Assessment and Plan (1) Pneumonia Current Visit: Yes Status: Acute Code(s): J18.9 - PNEUMONIA, UNSPECIFIED ORGANISM SNOMED Code(s): 708623763 (2) Sepsis Current Visit: No Status: Acute Code(s): A41.9 - SEPSIS, UNSPECIFIED ORGANISM SNOMED Code(s): 99651315 Plan: 1patient presented to hospital with sepsis in this patient who did have fever tachycardia mild hypotension source is likely pneumonia in this patient who recently did have a COVID-19 will need to cover for resistant gram negative to be the likely etiology and the patient recently grew Pseudomonas in his BAL cul ture 2-blood cultures are so far negative initial sputum has been negative, urine for Legionella antigen was negative mycoplasma IgM not elevated, repeat sputum is growing stenotrophomonas as well as Aspergillus and Eden 3 Aspergillus CF antibodies came back negative, and Aspergillus galactomannan requested but no results 4patient has been afebrile white count has normalized, the patient received adequate IV Bactrim followed by Levaquin which was subsequently discontinued, to continue with the current supportive treatment and and should be more comfortable oriented this has been discussed in detail with the and the son at the bedside Dictation was produced using [employer] software. please excuse any grammatical, word or spelling errors. Time with Patient: Less than 30
[2024-07-12 16:51] LABS: Glucose,Whole Blood 169 mg/dL (70-110)
[2024-07-12 20:15] LABS: Glucose,Whole Blood 195 mg/dL (70-110)
[2024-07-12 21:25] VITALS: TEMP 98.5
[2024-07-13 00:26] VITALS: PULSE 96
[2024-07-13] MEDS: MORPHINE SULFATE 2 MG/ML SYRINGE IVP PRN (03:41)
[2024-07-13 03:47] VITALS: BP 152/65; RESP 34
[2024-07-13] MEDS ORDERED: ZOLPIDEM 5 MG TAB PO PRN (04:00)
[2024-07-13] MEDS ORDERED: HALOPERIDOL LACTATE 5 MG/ML 1 ML VIAL IM PRN (04:00)
[2024-07-13] MEDS ORDERED: guaiFENesin SYRUP 100MG/5ML 200 MG/10 ML CUP PO PRN (04:00)
[2024-07-13] MEDS ORDERED: DRY MOUTH SPRAY 44.3 SPRAY/44.3 ML SPRAY MUCOUS MEM PRN (04:00)
[2024-07-13] MEDS ORDERED: ARTIFICIAL TEARS-HYPROMELLOSE DROPS 15 ML BTL BOTH EYES PRN (04:00)
[2024-07-13] MEDS ORDERED: polyethylene glycoL 3350 17 GM POWD.PACK PO PRN (04:00)
[2024-07-13] MEDS ORDERED: ONDANSETRON 4 MG/2 ML VIAL IVP PRN (04:00)
[2024-07-13] MEDS: LORazepam 2 MG/ML INJ IV PRN ×2 (04:12→11:46)
[2024-07-13] MEDS: MORPHINE SULFATE (100 MG/2 ML) 100 MG in SODIUM CHLORIDE 0.9% 100 ML IV SCH (04:29)
[2024-07-13] MEDS: MORPHINE SULFATE 2 MG/ML SYRINGE IV PRN (04:35)
[2024-07-13] MEDS: ATROPINE OPHTH SOLN 1% 5ML BTL SUBLINGUAL PRN (06:15)
[2024-07-13] MEDS ORDERED: LORazepam 2 MG/ML INJ IV PRN (10:48)
[2024-07-13] MEDS: GLYCOPYRROLATE 0.2 MG/ML 2 ML VIAL IVP PRN (11:45)
[2024-07-13] MEDS: SCOPOLAMINE 1 MG/72 HR PATCH TRANSDERM SCH (11:46)
--- NOTE | 2024-07-13 14:54 | P.PN ---
Subjective Progress Note Date: 07/13/24 On 07/13/2024, the patient is on comfort care measures. Overnight, the patient became acutely short of breath and patient is currently on morphine drip and is having agonal breathing. Family at the bedside. Noted hospice has been involved in his care few days back. No new labs are available from today. Labs from yesterday was noted. Breathing is quite shallow and ineffective at this point in time. He is unresponsive. Objective - Vital Signs Vital signs: Vital Signs Temp 98.5 F 07/12/24 20:00 Pulse 96 07/13/24 00:00 Resp 34 H 07/13/24 03:15 BP 152/65 07/13/24 03:15 Pulse Ox 80 L 07/13/24 03:44 FiO2 90 07/13/24 03:44 Intake & Output 07/12/24 07/13/24 07/13/24 18:59 06:59 18:59 Intake Total 210 9.486 91.562 Output Total 625 775 Balance -415 -765.514 91.562 Intake: IV 10 Invasive Line 8 10 Intake, IV Titration 9.486 91.562 Amount Morphine Sulfate (100 mg/ 9.486 91.562 2 ml) 100 mg In Sodium Chloride 0.9% 100 ml @ 1 MG/HR 1.02 mls/hr IV . Q24H [facility] [place] Rx#:[id number] Oral 200 Output: Urine 625 775 Other: Voiding Method Indwelling Catheter Indwelling Catheter - Exam Patient is having agonal breathing, seems to be quite comfortable on a morphine drip HEENT examination is grossly unremarkable. Mucous membranes are moist. No oral lesions. Neck supple. Full range of motion. No adenopathy thyromegaly or neck vein distention. Cardiovascular examination reveals regular rhythm rate. S1-S2 normal. No S3 or S4. No discernible murmur noted. Heart sounds are distant. Lungs sounds are quite diminished and the patient has irregular, erratic breath ing, ineffective with occasional apneas. Abdomen soft and without bowel sounds. No masses or tenderness. Extremities are intact. No cyanosis clubbing or edema. Skin is without rash or lesion. Neurologic the patient is unresponsive. - Labs CBC & Chem 7: 07/12/24 06:04 07/12/24 06:04 Labs: Abnormal Lab Results - Last 24 Hours (Table) 07/12/24 07/12/24 Range/Units 16:49 20:07 POC Glucose (mg/dL) 169 H 195 H (70-110) mg/dL Assessment and Plan Plan: Acute on chronic hypoxic respiratory failure, recurrent gram-negative pneumonias and the patient is currently in hospice care and undergoing end-of-life treatment. Recent hospitalization for a COPD exacerbation and a COVID-19 infection Advanced end-stage COPD Previous hospitalization for a pseudomonal tracheobronchitis/pneumonia status post repeat bronchoscopy that was done on 06/03/2024 the patient is still on oral ciprofloxacin, currently on IV Zosyn. Repeat sputum sample and the bronchial lavage that was done on this patient showed stenotrophomonas. Oxygen dependent chronic obstructive pulmonary disease with an FEV1 value 39% of predicted Chronic tobacco dependence of greater than 60 years Right upper lobe PET avid pulmonary nodule which is being monitored on outpatient basis, measuring up to 1.4 cm in size, enlarging in size and the patient will need an SBRT at a later stage on outpatient basis. History of non-Hodgkin's lymphoma Chronic stage III kidney disease Coronary disease with previous coronary artery bypass surgery in 2001 History of abdominal aortic aneurysm status post stent placement in March 2022 Carotid stenosis status post endarterectomy History of ESBL E. coli and bronchial wash in 2021 Hyperlipidemia Hypertension Plan: Continue with morphine drip. Family is at the bedside. All questions answered to their satisfaction. Hospice has been involved.
--- NOTE | 2024-07-13 17:57 | P.DS ---
Providers Date of admission: 06/18/24 14:19 Expected date of discharge: 07/13/24 Attending physician: Candy Ricks MD Consults: 06/18/24 14:23 Consult Physician Urgent Consulting Provider: Mookie Gallardo Consult Reason/Comments: recurrent pneumonia Do you want consulting provider notified?: Yes Consult Physician Urgent Consulting Provider: Liliana Jaimes Consult Reason/Comments: recurrent pneumonia Do you want consulting provider notified?: Yes [facility] Course: Acute on chronic hypoxic respiratory failure, likely from COVID sequelae complicated by development of pseudomonas and stenotropomonas maltophilia pneumonia Sepsis upon admission, secondary to above Acute on chronic COPD exacerbation, secondary to above Generalized weakness and fatigue secondary to physical decomposition resulting from prolonged hospitalization Pulmonary nodule, incidental finding on CT. Hyponatremia Hyerkalemia Elevated troponin. 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 Acute kidney injury on CKD stage IIIa. Lactic acidosis. Acute blood loss anemia. Systolic CHF with EF 40-45%: Hypertension: Dyslipidemia: Non-Hodgkins lymphoma. CAD with CABG: Carotid stenosis with endarterectomy Hospital Course: Patient is a very pleasant 79-year-old male with a past medical history of systolic CHF with EF 40 to 45%, COPD on 3L home O2, chronic kidney disease, hypertension, hyperlipidemia, non-Hodgkins lymphoma, CAD with CABG, AAA with stent, carotid stenosis with endarterectomy presents to the ED for shortness of breath. Apparently his O2 sat was in the 70s when EMS arrived on his 3L NC. Recently admitted from 06/05-06/07 for similar complaints, COVID + at that time, treated with bronchodilators, Zosyn, SoluMedrol and discharged on a Prednisone taper and to complete a course of Ciprofloxacin. He recently underwent bronchoscopy with BAL with Dr. Cano on 05/13 with cultures resulting in Pseudomonas and ariel albicans. He was started on Ciprofloxacin at that time. He underwent repeat bronchoscopy with BAL with Dr. Cano on 06/03 which grew stenotrophomonas maltophilia. He was continued on Ciprofloxacin and according to the patient has been taking it over the past 5-6 weeks. In the ED he underwent extensive evaluation. Tmax 100F, BP 119/62, HR 102, RR 40, 91% on 3L. CBC, Coag panel, CMP significant for RBC 4, Hg 12.4, Hct 35.8, PT 9.9, bicarb 33, BUN 39, Cr 1.91, glu 131. Lactic acid 2.9. Troponin 0.054. EKG sinus tachycardia with RBBB. CXR showed COPD with patchy interstitial densities increased from previous CXRs. Patient is admitted for further workup and management. Patient seen by pulmonology and started on IV Zosyn and Bactrim. Patient also on IV steroids. Patient was on BiPAP. Patient weaned down to Airvo. Patient had another bronchoscopy done on 06/24/2024 that showed tracheobronchomalacia with copious thick secretions and mucous plugging. Sputum culture obtained at this time ramón wing Aspergillus fumigatus, stenotrophomonas maltophilia, and Ariel albicans. Patient currently on Bactrim 352 mg IVPB every [address] chest was completed showing small right pleural effusion and moderate to severe emphysema with right lower lobe 13 mm pulmonary nodule. Patient is now status post antibiotics. Continues to have poor respiratory function requiring Airvo [id number]. Consulted hospice. Patient transitioned to comfort care today and . Plan - Discharge Summary Discharge Rx Participant: No New Discharge Prescriptions: No Action Garwin-3/Dha/Epa/Fish Oil [Fish Oil 1,000 mg Softgel] 1 cap PO DAILY Pantoprazole [Protonix] 40 mg PO BID Multivitamins, Thera [Multivitamin (formulary)] 1 tab PO DAILY Tiotropium 2.5 Mcg/Puff [Spiriva Respimat 2.5 Mcg] 2 puff INHALATION RT-DAILY Atorvastatin [Lipitor] 40 mg PO HS Albuterol Sulfate [Albuterol Sulfate Hfa] 2 puff INHALATION RT-Q6H Clopidogrel [Plavix] 75 mg PO DAILY predniSONE [Deltasone] 10 mg PO DAILY Ciprofloxacin HCl [Cipro] 500 mg PO Q12HR 5 Days #28 tab Tamsulosin [Flomax] 0.4 mg PO HS Aspirin EC [Ecotrin Low Dose] 81 mg PO DAILY Torsemide [Demadex] 10 mg PO DAILY Metoprolol Succinate (ER) [Toprol XL] 25 mg PO DAILY Fluticasone Propion/Salmeterol [Fluticasone-Salmeterol 100-50] 1 puff IN HALATION RT-BID Montelukast [Singulair] 10 mg PO HS glipiZIDE 5 mg PO BID #60 tablet Discharge Medication List Aspirin EC [Ecotrin Low Dose] 81 mg PO DAILY 06/15/22 [History] Multivitamins, Thera [Multivitamin (formulary)] 1 tab PO DAILY 06/15/22 [History] Garwin-3/Dha/Epa/Fish Oil [Fish Oil 1,000 mg Softgel] 1 cap PO DAILY 06/15/22 [History] Pantoprazole [Protonix] 40 mg PO BID 06/15/22 [History] Tamsulosin [Flomax] 0.4 mg PO HS 06/15/22 [History] Tiotropium 2.5 Mcg/Puff [Spiriva Respimat 2.5 Mcg] 2 puff INHALATION RT-DAILY 06/15/22 [History] Torsemide [Demadex] 10 mg PO DAILY 09/22/22 [History] Fluticasone Propion/Salmeterol [Fluticasone-Salmeterol 100-50] 1 puff INHALATION RT-BID 06/05/23 [History] Metoprolol Succinate (ER) [Toprol XL] 25 mg PO DAILY 06/05/23 [History] Albuterol Sulfate [Albuterol Sulfate Hfa] 2 puff INHALATION RT-Q6H 05/07/24 [History] Atorvastatin [Lipitor] 40 mg PO HS 05/07/24 [History] Clopidogrel [Plavix] 75 mg PO DAILY 05/07/24 [History] Montelukast [Singulair] 10 mg PO HS 05/07/24 [History] glipiZIDE 5 mg PO BID #60 tablet 05/14/24 [Rx] predniSONE [Deltasone] 10 mg PO DAILY 06/03/24 [History] Ciprofloxacin HCl [Cipro] 500 mg PO Q12HR 5 Days #28 tab 06/07/24 [Rx] Follow up Appointment(s)/Referral(s): Monster Kinney DO [Primary Care Provider] - 1-2 days [facility], [NON-STAFF] - As Needed Discharge Disposition: - Preliminary Cause of Preliminary Cause of : COPD
== END 2024-07-13 16:51 | disposition expired | DRG 853 ==
LOC: EC 13:05 → 4SSUR 14:19 → 2SICU 06-21 08:34 → 3SCARD 06-22 15:14
PROVIDERS: ADMIT Family Medicine; ATTEND Family Medicine
PROC: 5A09357 Assistance with Respiratory Ventilation, Less than 24 Consecutive Hours, Continuous Positive Airway Pressure (ICD-10-PCS; 2024-06-21)
PROC: 0B9H8ZX Drainage of Lung Lingula, Via Natural or Artificial Opening Endoscopic, Diagnostic (ICD-10-PCS; 2024-06-24)
PROC: 0WCQ8ZZ Extirpation of Matter from Respiratory Tract, Via Natural or Artificial Opening Endoscopic (ICD-10-PCS; principal; 2024-06-24 08:30)
DX: A41.52 Sepsis due to Pseudomonas (principal); B37.1 Pulmonary candidiasis; J15.1 Pneumonia due to Pseudomonas; J96.21 Acute and chronic respiratory failure with hypoxia; J15.69 Pneumonia due to other Gram-negative bacteria; B44.9 Aspergillosis, unspecified; D84.821 Immunodeficiency due to drugs; J91.8 Pleural effusion in other conditions classified elsewhere; I5A Non-ischemic myocardial injury (non-traumatic); D62 Acute posthemorrhagic anemia; N17.9 Acute kidney failure, unspecified; I50.22 Chronic systolic (congestive) heart failure; I13.0 Hypertensive heart and chronic kidney disease with heart failure and stage 1 through stage 4 chronic kidney disease, or unspecified chronic kidney disease; E87.1 Hypo-osmolality and hyponatremia; Z66 Do not resuscitate; Z51.5 Encounter for palliative care; D69.6 Thrombocytopenia, unspecified; E11.65 Type 2 diabetes mellitus with hyperglycemia; N18.31 Chronic kidney disease, stage 3a; E11.22 Type 2 diabetes mellitus with diabetic chronic kidney disease; J43.9 Emphysema, unspecified; D63.1 Anemia in chronic kidney disease; J98.09 Other diseases of bronchus, not elsewhere classified; Z99.81 Dependence on supplemental oxygen; I45.10 Unspecified right bundle-branch block; E87.5 Hyperkalemia; T36.8X5A Adverse effect of other systemic antibiotics, initial encounter; T38.0X5A Adverse effect of glucocorticoids and synthetic analogues, initial encounter; R31.0 Gross hematuria; U09.9 Post COVID-19 condition, unspecified; R33.9 Retention of urine, unspecified; F17.210 Nicotine dependence, cigarettes, uncomplicated; J34.2 Deviated nasal septum; E78.5 Hyperlipidemia, unspecified; J98.4 Other disorders of lung; I25.10 Atherosclerotic heart disease of native coronary artery without angina pectoris; R91.1 Solitary pulmonary nodule; Z87.01 Personal history of pneumonia (recurrent); Z95.1 Presence of aortocoronary bypass graft; Z79.52 Long term (current) use of systemic steroids; Z79.82 Long term (current) use of aspirin; Z79.51 Long term (current) use of inhaled steroids; Z79.899 Other long term (current) drug therapy; Z95.818 Presence of other cardiac implants and grafts; Z86.19 Personal history of other infectious and parasitic diseases; Z86.79 Personal history of other diseases of the circulatory system; Z79.02 Long term (current) use of antithrombotics/antiplatelets; Z79.84 Long term (current) use of oral hypoglycemic drugs; Z85.72 Personal history of non-Hodgkin lymphomas; Z92.21 Personal history of antineoplastic chemotherapy; Z87.11 Personal history of peptic ulcer disease
CPT/HCPCS: 31624; 36410; 36415; 36600; 71045; 71046; 71250; 76937; 80048; 80053; 80076; 82805; 83605; 83735; 83880; 84145; 84484; 85025; 85027; 85610; 85730; 86606; 86738; 87040; 87070; 87077; 87186; 87205; 87385; 87449; 93005; 93970; 94640; 94660; 94667; 94668; 94760; 96365; 96375; 99285